=== PATIENT | female | born 1995 | race Caucasian/White ===

== ENCOUNTER 2017-09-18 11:31 | Emergency (ER) | payer MEDICAID, SELFPAY ==
[2017-09-18 11:33] VITALS: BP 104/65; PULSE 84; RESP 16; TEMP 36.9; O2SAT 98; BMI 22.8
--- NOTE | 2017-09-18 12:17 | US_ITS ---
STUDY: ABDOMINAL ULTRASOUND - RIGHT UPPER QUADRANT REASON FOR VISIT: Female, 21 years old. One-week history of right abdominal pain. The patient is 9 weeks . TECHNIQUE: Ultrasound evaluation of the right upper quadrant was performed with real-time and static workman-scale imaging. TECHNICAL QUALITY: Adequate. COMPARISON: None. FINDINGS: Liver: The liver measures 14.4 cm. There is normal echogenicity of the liver. The bile ducts are within normal limits. There is hepatic color flow. The direction of portal flow is hepatopetal. There is no demonstrated mass lesion. Gallbladder: Normal distended gallbladder. The gallbladder wall measures 2.8 mm. There is a negative sonographic Graham's sign. There is no pericholecystic fluid. There are no gallstones. A small amount of sludge is seen in the gallbladder lumen. Common Bile Duct (C.B.D.): The common bile duct measures 3.7 mm. Pancreas: Normal size of the head, body and tail of the pancreas. There is normal echogenicity of the pancreas. There is no demonstrated pancreatic mass or cyst. US/Gallbladder IMPRESSION: A small amount of sludge is seen within the gallbladder lumen. Electronically Signed: Wilberto Sylvester MD at 14:45 EDT Tel [phone], Service support ,
--- NOTE | 2017-09-18 12:17 | US_ITS ---
STUDY: RENAL ULTRASOUND - COMPLETE REASON FOR EXAM: Female, 21 years old. Right abdominal pain for one week. 9 week . TECHNIQUE: Ultrasound evaluation of the kidneys was performed with real-time and static asher-scale imaging. COMPARISON: None. FINDINGS: RIGHT KIDNEY: Normal location of the right kidney, which is normal in size. The right kidney measures 12.2 cm. There is a normal cortex of the right kidney. The renal cortex measures 1.6 cm. There is a 1.2 x 1.2 x 1.0 cm upper pole cyst. There is a 1 cm linear echogenic focus in the upper pole without shadowing. A second 3 mm echogenic focus is seen in the upper pole. Again no shadowing is seen. There is no right hydronephrosis. DISTAL RIGHT URETER: There is mild hydroureter of the distal right ureter. There is no demonstrated right ureterovesical junction calculus. There is a visualized right ureteral jet. LEFT KIDNEY: Normal location of the left kidney, which is normal in size. The left kidney measures 11.1 cm. There is a normal cortex of the left kidney. The renal cortex measures 1.6 cm. There is no left renal mass or cyst. The 4 mm echogenic focus in the lower pole without acoustic shadowing. There is no left hydronephrosis. DISTAL LEFT URETER: There is non-visualization of the distal left ureter. There is no demonstrated left ureterovesical junction calculus. There is a visualized left ureteral jet. BLADDER: The distended urinary bladder has a volume of 259 ml. There is a normal wall thickness of the distended urinary bladder. Is dependent debris within the bladder lumen. There are no demonstrated bladder calculi. US/Kidney and Bladder IMPRESSION: 1. Prominent distal right ureter with debris within the bladder lumen. No evidence of hydronephrosis. 2. Echogenic foci in both kidneys without acoustic shadowing. These may represent nonobstructing stones or reflectivity from sinus fat or vessels. 3. Right renal cyst. Electronically Signed: Iggy Mcrae DO at 15:14 EDT Tel [phone], Service support ,
[2017-09-18] MEDS: proMETHazine 25 MG/ML Syringe 12.5 MG IV (12:30)
[2017-09-18] MEDS: 0.9% Normal Saline 1,000 ML 999 ML IV (12:30)
[2017-09-18 12:37] LABS: Bacteria 0 SEEN /hpf (None Seen); Mucous, Urine 0 SEEN /hpf (<or=2+); Red Blood Cells-Urine 0 SEEN /hpf (0-5); White Blood Cells 0 SEEN /hpf (0-5)
[2017-09-18 12:41] LABS: Absolute Lymphocyte Count 1.88 X10^3/ul (0.83-4.51); Basophil# 0.02 X10^3/uL; Basophil% 0.2 % (0-1); Eosinophil# 0.37 X10^3/uL; Eosinophils% 4.2 % (0-5); Hematocrit 36.5 % (37-47); Hemoglobin 12.3 g/dl (12.0-15.0); Lymphocyte # 1.88 X10^3/ul (4.0); Lymphocyte % 21.4 % (19-41); Mean Corp Hgb Conc 33.7 g/gl (32-36); Mean Corpuscular Hgb 30.1 pg (27.0-32.0); Mean Corpuscular Volume 89.2 fL (81-99); Mean Platelet Vol. 8.8 fl (6.2-12.0); Monocyte# 0.47 X10^3/uL; Monocyte% 5.4 % (0-10); Neutrophil # 6.02 X10^3/uL (2.7-7.7); Neutrophil % 68.7 % (47-70); Platelet Count 289 K/mm3 (150-450); RBC Distribution Width CV 13.1 % (11.6-14.6); RBC Distribution Width SD 42.6 fl (35.1-43.9); Red Blood Count 4.09 M/mm3 (4.2-5.4); White Blood Count 8.8 K/mm3 (4.4-11.0)
[2017-09-18 12:46] LABS: POSITIVE COUNT NO; POSITIVE DIFFERENTIAL NO; POSITIVE MORPHOLOGY NO
[2017-09-18 12:48] LABS: Anion Gap 9 (5-15); BUN 8 mg/dL (7-18); Calcium,Total 8.9 mg/dL (8.5-10.1); Chloride 107 mmol/L (98-107); Creatinine, Serum 0.47 mg/dL (0.55-1.02); EST Glomerular Filtration Rate 176 mL/min (>60); Est Glom Filt Rate - Afr Amer 213 mL/min (>60); Estimated Creatinine Clearance 149.75 ml/min; Glucose 79 mg/dL (74-106); Lipase 141 U/L (73-393); Potassium 3.8 mmol/L (3.5-5.1); Sodium Level 139 mmol/L (136-145)
[2017-09-18 12:49] LABS: AST(SGOT) 17 U/L (15-37); Alanine Aminotransfer ALT/SGPT 24 U/L (13-56); Albumin, Serum 3.7 g/dL (3.2-5.0); Alkaline Phosphatase 51 U/L (45-117); Bilirubin, Direct 0.08 mg/dL (0.00-0.30); Color, Urine Yellow (Yellow); Globulin 3.6 g/dL (2.2-4.2); Glucose, Dipstick Normal (Normal); Ketone-Dipstick 50 mg/dl (Negative); Leukocyte Esterase-Dipstick 25 /ul (Negative); Nitrite-Dipstick Negative (Negative); Occult Blood-Urine 10 /ul (Negative); Protein, Total 7.3 g/dL (6.4-8.2); Protein-Dipstick Negative (Negative); Specific Gravity, Urine 1.015 (1.002-1.030); Urine Bilirubin Dipstick Negative (Negative); Urine Clarity Cloudy (Clear); Urine Urobilinogen Normal (Normal)
[2017-09-18 12:56] LABS: Amorphous Sediment 3+; Squamous Epithelial Cells - UA 10-25 SEEN /hpf (5-10)
--- NOTE | 2017-09-18 16:03 | ED.DCSUM_ITS ---
- ER Visit Summary Date of Service: 09/18/17 Chief Complaint: Abdominal pain History of Present Illness: The patient is a 21 F who presents with abdominal pain. She is 9 weeks . She denies any vaginal bleeding or vaginal discharge. She states she was recently diagnosed with UTI but was noncompliant with medications due to nausea. She reports some decreased p.o. intake over the past few days. She states her urine is cloudy. She has had increased vomiting over the past 2-3 days. She complains of sharp right upper quadrant abdominal pain and bilateral lower back pain. Physical Examination: Afebrile vitals are normal Moist mucous membranes Heart regular rate and rhythm Lungs are clear Abdomen soft nondistended she does have right upper quadrant tenderness but no Graham's sign no guarding no rebound Bilateral CVA tenderness Test Results: CBC CMP lipase all normal. Urinalysis shows 25 leukocyte esterase but no nitrates no WBCs no bacteria and is contaminated with 10-25 epithelial cells. Right upper quadrant ultrasound shows sludge but normal wall no pericholecystic fluid. Renal ultrasound shows some prominence of the distal right ureter and possible nonobstructing bilateral stones but no hydronephrosis. Transabdominal pelvic ultrasound performed by the emergency physician shows a live IUP with heart rate of 188. Emergency Department Course and Treatment: Patient was treated with IV fluids and Phenergan and feels much better on reevaluation. She has no evidence of acute cholecystitis or pyelonephritis. I believe she is safe to follow-up as an outpatient. She understands return for new or worsening symptoms. She does have antiemetics at home. She is comfortable with the plan was discharged. Treatment Plan: [] Disposition: Discharge Impression: Abdominal pain Vomiting First trimester This note was generated with RSP Toolingation software. It may contain incorrect words, spelling, and punctuation that were not noted in review of the chart prior to signing ED Disposition - Plan for ED Patient: Chief Complaint: Abd Pain Referrals: Javi Steven MD [Primary Care Provider] -
--- NOTE | 2017-09-18 16:03 | ED.DEP ---
ED Disposition - Plan for ED Patient: Chief Complaint: Abd Pain Instructions: ED Abdominal Pain Unkn Cause, ED Nausea Vomiting Referrals: Javi Steven MD [Primary Care Provider] - Barbara Figueroa [STAFF PHYSICIAN] -
[2017-09-18 16:11] VITALS: BP 100/78; PULSE 72; RESP 16; O2SAT 98
== END 2017-09-18 16:12 | disposition home or self-care (01) ==
PROVIDERS: Emergency Provider Emergency Medicine; Family Provider Family Medicine; PCP Family Medicine
DX: O99.89 Other specified diseases and conditions complicating pregnancy, childbirth and the puerperium (principal); R10.11 Right upper quadrant pain; M54.5 Low back pain; R11.2 Nausea with vomiting, unspecified; R30.0 Dysuria; O99.331 Smoking (tobacco) complicating pregnancy, first trimester; F17.200 Nicotine dependence, unspecified, uncomplicated; Z3A.09 9 weeks gestation of pregnancy; Z87.440 Personal history of urinary (tract) infections
CPT/HCPCS: 76705; 76770; 80048; 80076; 81001; 83690; 85025; 87086; 96361; 96374; 99283; J7030

== ENCOUNTER 2017-09-23 13:16 | Emergency (ER) | payer MEDICAID, SELFPAY ==
[2017-09-23 13:16] VITALS: BP 104/70; PULSE 81; RESP 18; TEMP 36.4; O2SAT 98; BMI 23.2
--- NOTE | 2017-09-23 13:58 | ED.VISSUMM ---
- ER Visit Summary Date of Service: 09/23/17 Chief Complaint: Vaginal bleeding and History of Present Illness: The patient is a [address] Machado. She reports that she has vaginal bleeding that began approximately 2 hours ago. It was acquisition advisor than her typical period and is now resolved. She reports that she has cramping lower abdominal pain is 5 out of 10 at worst and 4-10 currently. Is worsened by movement and relieved by remaining still. She is currently on Macrobid for UTI. She is a at 9/2 weeks . Physical Examination: Vitals: Stable. Afebrile. General: Well-nourished and well-developed. Head: Normocephalic atraumatic. Neck: Supple, no lymphadenopathy. No JVD. Nontender. Cardiovascular: Regular rate and rhythm. No murmurs. Respiratory: No respiratory distress. Clear to auscultation bilaterally. Abdominal: Soft, nontender, nondistended, normal bowel sounds. No guarding, rebound, or peritoneal signs. Back: Nontender. Extremities: Nontender, no edema. Skin: Normal color, no rash. Neurologic: Alert and oriented ?3. Cranial nerves II through XII are intact. Normal strength and sensation. Psych: Normal affect. Test Results: Bedside ultrasound shows good movement and heartbeat. Patient had had a ABO Rh obtained previously that is a positive. Emergency Department Course and Treatment: Patient is resting comfortably. Treatment Plan: She was discussed with Dr. Trejo. She will be discharged instructions to follow-up tomorrow as previously scheduled. She was instructed to have pelvic rest. Disposition: To home in improved and stable condition. Impression: 1. First trimester . 2. Vaginal bleeding. This note was generated with Music[employer] dictation software. It may contain incorrect words, spelling, and punctuation that were not noted in review of the chart prior to signing ED Disposition - Plan for ED Patient: Disposition: Home or Assisted Living Chief Complaint: Vag Bld, Preg Instructions: ED Miscarriage Poss Referrals: Lynn Kaplan MD [STAFF PHYSICIAN] - Keep Ened[facility] appointment
[2017-09-23 14:33] VITALS: PULSE 85; RESP 18; O2SAT 99
== END 2017-09-23 14:34 | disposition home or self-care (01) ==
LOC: ED 14:31
PROVIDERS: Emergency Provider Emergency Medicine; Family Provider Family Medicine; PCP Family Medicine
DX: O20.9 Hemorrhage in early pregnancy, unspecified (principal); O23.41 Unspecified infection of urinary tract in pregnancy, first trimester; O99.331 Smoking (tobacco) complicating pregnancy, first trimester; F17.200 Nicotine dependence, unspecified, uncomplicated; Z3A.09 9 weeks gestation of pregnancy; Z87.442 Personal history of urinary calculi
CPT/HCPCS: 99282

== ENCOUNTER 2017-12-09 11:48 | Emergency (ER) | payer MEDICAID, SELFPAY ==
[2017-12-09 11:49] VITALS: BP 104/59; PULSE 77; RESP 16; TEMP 36.7; O2SAT 100; BMI 23.6
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
--- NOTE | 2017-12-09 12:18 | ED.DEP ---
ED Disposition - Plan for ED Patient: Chief Complaint: Med Refill Instructions: Med Refill Referrals: Javi Steven MD [Primary Care Provider] - Additional Instructions: Emergency prescription is provided to you at [facility], please recognize that no additional emergency prescriptions will be provided from the emergency department this was done on an emergency basis only all other emergency prescription should be provided by your providers
== END 2017-12-09 12:52 | disposition home or self-care (01) ==
LOC: ED 12:22
PROVIDERS: Emergency Provider Emergency Medicine; Family Provider Family Medicine; PCP Family Medicine
DX: Z76.0 Encounter for issue of repeat prescription (principal)
CPT/HCPCS: 99282

== ENCOUNTER 2018-03-14 13:35 | Outpatient (CLI) | payer MEDICAID, SELFPAY ==
[2018-03-14 13:48] VITALS: BMI 25.7
[2018-03-14 14:02] LABS: Mucous, Urine 0 SEEN /hpf (<or=2+)
[2018-03-14 14:06] LABS: Glucose, Dipstick Normal (Normal); Ketone-Dipstick Negative (Negative); Leukocyte Esterase-Dipstick 100 /ul (Negative); Nitrite-Dipstick Negative (Negative); Occult Blood-Urine 150 /ul (Negative); Protein-Dipstick 15 mg/dl (Negative); Urine Bilirubin Dipstick Negative (Negative); Urine Urobilinogen Normal (Normal); Urine pH 6.5 (5.0 - 8.0)
[2018-03-14 14:11] LABS: Color, Urine Yellow (Yellow); Urine Clarity Clear (Clear)
[2018-03-14 14:13] LABS: Red Blood Cells-Urine 0-5 SEEN /hpf (0-5); White Blood Cells 0-5 SEEN /hpf (0-5)
[2018-03-14 14:14] LABS: Bacteria 3+ /hpf (None Seen); Squamous Epithelial Cells - UA 0-5 SEEN /hpf (5-10)
[2018-03-14 14:41] LABS: Amphetamine Urine VISTA NEGATIVE (<1000 ng/mL); Barbiturate Urine VISTA NEGATIVE (< 200 ng/mL); Benzodiazepine Urine VISTA NEGATIVE (< 200 ng/mL); Cocaine Urine VISTA NEGATIVE (< 300 ng/mL); Ecstacy Urine VISTA NEGATIVE (< 500 ng/mL); Methadone Urine VISTA NEGATIVE (< 300 ng/mL); PCP Urine VISTA NEGATIVE (< 25 ng/mL); THC Urine VISTA NEGATIVE (< 50 ng/mL); Vista UDS pH Range 6
--- NOTE | 2018-03-14 17:19 | OB.TRI.NOTE ---
- Problem List (1) related abdominal pain of lower quadrant, antepartum Status: Acute History of Present Illness Date of Service: 03/14/18 Was patient seen by the physician?: No Reason For Visit: ABD PAIN Date of Service: 03/14/18 Final CHIN: 04/20/18 Final CHIN Source: US <20 weeks Gestational age: 34 Weeks and 5 Days History of Present Illness: Patient reports that she is having some midline lower quadrant pain and some discomfort with urination. Patient thinks she may have a UTI. Allergies diphenhydramine HCl [From Benadryl] Allergy (Verified 03/14/18 13:50) Hives Penicillins Allergy (Verified 03/14/18 13:50) Hives Laboratory Studies: Laboratory Tests 03/14/18 03/14/18 Range/Units 13:50 13:50 Urine Color Yellow (Yellow) Urine Clarity Clear (Clear) Urine pH 6.5 (5.0 - 8.0) Ur Specific Loma 1.020 (1.002-1.030) Urine Protein 15 H (Negative) mg/dl Urine Glucose (UA) Normal (Normal) mg/dl Urine Ketones Negative (Negative) mg/dl Urine Occult Blood 150 H (Negative) /ul Urine Nitrite Negative (Negative) Urine Bilirubin Negative (Negative) mg/dL Urine Urobilinogen Normal (Normal) mg/dl Ur Leukocyte Esterase 100 H (Negative) /ul Urine RBC 0-5 SEEN (0-5) /hpf Urine WBC 0-5 SEEN (0-5) /hpf Ur Squamous Epith Cells 0-5 SEEN (5-10) /hpf Urine Bacteria 3+ (None Seen) /hpf Urine Mucus 0 SEEN (<or=2+) /hpf Urine Opiates Screen NEGATIVE (< 300 ng/mL) Urine Methadone Screen NEGATIVE (< 300 ng/mL) Ur Barbiturates Screen NEGATIVE (< 200 ng/mL) Ur Phencyclidine Scrn NEGATIVE (< 25 ng/mL) Ur Amphetamines Screen NEGATIVE (<1000 ng/mL) U Methamphetamin-MDMA NEGATIVE (< 500 ng/mL) U Benzodiazepines Scrn NEGATIVE (< 200 ng/mL) Urine Cocaine Screen NEGATIVE (< 300 ng/mL) U Cannabinoids Screen NEGATIVE (< 50 ng/mL) Ur Drug Screen Comment Review of Systems Constitutional: Denies: Chills, Fever, Weight Change HEENT: Denies: Head Aches, Sinus Congestion, Sinus Drainage Cardiovascular: Denies: Chest Pain, Palpitations Respiratory: Denies: Cough, Shortness of breath at rest, Sputum production Gastrointestinal: Reports: Abdominal Pain Genitourinary: Reports: Dysuria Musculoskeletal: Denies: Joint Pain, Joint Tenderness Skin: Denies: Rash, Wounds Neurological: Denies: Numbness, Tingling, Focal weakness Psychiatric: Denies: Anxiety, Depression, Homicidal Ideations, Suicidal Ideations Hematologic/ Lymphatic: Denies: Easy Bruising, Easy Bleeding Unable to obtain accurate/complete ROS d/t: See nursing note for additional information re: ROS Physical Exam Vitals: See nursing assessment for vital signs - VSS, afebrile See nursing assessment for PE NST - FHR Rate Baby A Baseline: 135 Variability:: Moderate Accelerations:: 15 x 15 Decelerations:: None NST Reactive:: Yes, Appropriate for gestational age FHR Category:: Category I Uterine Activity:: No contractions noted on tocometer Impression/Plan 22 y/o @ 34.5wks, Lower Abdominal Pain and Dysuria - findings c/w UTI P: 1) CCMS sent 2) Rx for Macrobid 100mg PO BID x 7 days e-prescribed to patient's listed pharmacy through [facility] 3) Discharge to home with PTL precautions 4) Increase PO hydration 5) RTC to [facility] as scheduled for next visit Lesly DELEON
== END 2018-03-14 14:40 | disposition home or self-care (01) ==
LOC: WPOUT 13:41 → WP 13:42
PROVIDERS: Family Provider Family Medicine; PCP Family Medicine; Referring Provider Obstetrics & Gynecology; Visit Provider Obstetrics & Gynecology
DX: O26.893 Other specified pregnancy related conditions, third trimester (principal); R10.30 Lower abdominal pain, unspecified; R30.0 Dysuria; Z3A.34 34 weeks gestation of pregnancy
CPT/HCPCS: 59025; 59050; 80307; 81001; 87086; 87088; 99218; G0378

== ENCOUNTER 2018-04-02 03:50 | Outpatient (CLI) | payer MEDICAID, SELFPAY ==
[2018-04-02] MEDS: Lactated Ringers 1,000 ML 125 ML IV ×2 (04:30→06:50)
[2018-04-02 05:14] VITALS: BMI 25.9
[2018-04-02 05:17] LABS: ROM Internal Control Test YES-OK TO RESULT pt. (Internal QC); ROM Patient Test Negative (Negative)
[2018-04-02 05:50] LABS: Mucous, Urine 0 SEEN /hpf (<or=2+); Red Blood Cells-Urine 0 SEEN /hpf (0-5)
[2018-04-02 06:07] LABS: Amphetamine Urine VISTA NEGATIVE (<1000 ng/mL); Barbiturate Urine VISTA NEGATIVE (< 200 ng/mL); Benzodiazepine Urine VISTA NEGATIVE (< 200 ng/mL); Cocaine Urine VISTA NEGATIVE (< 300 ng/mL); Ecstacy Urine VISTA NEGATIVE (< 500 ng/mL); Methadone Urine VISTA NEGATIVE (< 300 ng/mL); PCP Urine VISTA NEGATIVE (< 25 ng/mL); THC Urine VISTA NEGATIVE (< 50 ng/mL); Vista UDS pH Range 6
--- NOTE | 2018-04-02 06:11 | OB.TRI.NOTE ---
- Problem List (1) Breech presentation of fetus Status: Resolved Qualifiers: Fetus number: single or unspecified fetus Qualified Code(s): O32.1XX0 - Maternal care for breech presentation, not applicable or unspecified History of Present Illness Date of Service: 04/02/18 Was patient seen by the physician?: Yes Reason For Visit: r/o labor Date of Service: 04/02/18 Final CHIN: 04/21/18 Final CHIN Source: US <20 weeks Gestational age: 37 Weeks and 2 Days Allergies diphenhydramine HCl [From Benadryl] Allergy (Verified 03/14/18 13:50) Hives Penicillins Allergy (Verified 03/14/18 13:50) Hives Laboratory Studies: Laboratory Tests 04/02/18 04/02/18 Range/Units 04:40 04:30 Vag Amniotic Fld Detect Negative (Negative) Urine Opiates Screen NEGATIVE (< 300 ng/mL) Urine Methadone Screen NEGATIVE (< 300 ng/mL) Ur Barbiturates Screen NEGATIVE (< 200 ng/mL) Ur Phencyclidine Scrn NEGATIVE (< 25 ng/mL) Ur Amphetamines Screen NEGATIVE (<1000 ng/mL) U Methamphetamin-MDMA NEGATIVE (< 500 ng/mL) U Benzodiazepines Scrn NEGATIVE (< 200 ng/mL) Urine Cocaine Screen NEGATIVE (< 300 ng/mL) U Cannabinoids Screen NEGATIVE (< 50 ng/mL) Ur Drug Screen Comment Review of Systems Constitutional: Denies: Chills, Fever, Weight Change HEENT: Denies: Head Aches, Sinus Congestion, Sinus Drainage Cardiovascular: Denies: Chest Pain, Palpitations Respiratory: Denies: Cough, Shortness of breath at rest, Sputum production Gastrointestinal: Reports: Abdominal Pain - Reports lower back pain that wraps around to front, specifically on Rt. Side.. Denies: Nausea, Vomiting Genitourinary: Denies: Dysuria Gynecological: Reports: Vaginal discharge - Reports scant clear/white discharge on and off since Friday 03/30. Denies: Vaginal bleeding Musculoskeletal: Denies: Joint Pain, Joint Tenderness Skin: Denies: Rash, Wounds Neurological: Denies: Numbness, Tingling, Focal weakness Psychiatric: Denies: Anxiety, Depression, Homicidal Ideations, Suicidal Ideations Hematologic/ Lymphatic: Denies: Easy Bruising, Easy Bleeding Physical Exam Vitals: See nursing note for vitals General: Alert, Oriented x3, No apparent distress HEENT: Atraumatic, Normocephalic, - - lips dry and cracked. Negative for: Thyromegaly, Lymphadenopathy Cardiovascular: Regular rate, Regular Rhythm Lungs: Normal air movement Abdomen: Soft, Non Tender, Gravid Extremities:: No edema Neurological: Deep Tendon Reflexes 2+/4 and Symmetrical, Neuro grossly intact CHART SNATCHER: Normal external genitalia. Negative for: Vulvar lesions Estimated gestational size: Appropriate for gestational size Presentation: Cephalic - Confirmed by bedside u/s Cervix Dilation (cm): 1 - Per nursing staff Station: -2 Effacement (%): 50 NST - FHR Rate Baby A Baseline: 125 Variability:: Moderate Accelerations:: 15 x 15 Decelerations:: None NST Reactive:: Yes, Appropriate for gestational age FHR Category:: Category I Uterine Activity:: Irregular q 10-20 minutes, mildly strog to palpation Impression/Plan 22 y/o @ 37+2 weeks, Previous known Breech presentation with spontaneous conversion to Cephalic presentation, False Labor likely secondary to dehydration, Category I FHT P: 1) Urine UA sent, Rpt tox screen also sent d/t patient hx of recent meth use in last month 2) Discharge to home with labor and C teaching precautions 3) Scheduled ECV this morning cancelled - Drs. Trejo and Kyra informed of spontaneous version 4) Patient to follow-up as scheduled for visit in [facility] office Lesly DELEON
[2018-04-02 06:25] LABS: Color, Urine Yellow (Yellow); Glucose, Dipstick NEGATIVE (Normal); Ketone-Dipstick Negative (Negative); Protein-Dipstick Negative (Negative); Urine Bilirubin Dipstick Negative (Negative); Urine Clarity Clear (Clear); Urine Urobilinogen Normal (Normal); Urine pH 6.5 (5.0 - 8.0)
[2018-04-02 06:26] LABS: Leukocyte Esterase-Dipstick 100 /ul (Negative); Nitrite-Dipstick Negative (Negative); Occult Blood-Urine Negative /ul (Negative)
[2018-04-02 06:27] LABS: White Blood Cells 0-5 SEEN /hpf (0-5)
[2018-04-02 06:28] LABS: Bacteria 1+ /hpf (None Seen); Squamous Epithelial Cells - UA 0-5 SEEN /hpf (5-10)
--- OUTSIDE RECORDS SUMMARY | 2018-05-14 18:07 | XMS RPT_ITS ---
:1995 Author Organization [place] Support Name Relationship Address Phone SHITAL ROSENTHALEN Unavailable [address] + [place] [address] LUIGI LORENZO Unavailable [address] [address] + [place] [address] UE Unavailable Unavailable Unavailable ARIADNA, KRZYSZTOF Unavailable [address] + [place] [address] JESSICA LUIGI Unavailable [address] + [place] [address] UE Unavailable Unavailable Unavailable ARIADNA, KRZYSZTOF Unavailable [address] + [place] [address] JESSICA LUIGI Unavailable [address] [place] + [place] [address] UE Unavailable Unavailable Unavailable ARIADNA, KRZYSZTOF Unavailable [address] + [place] [address] JESSICA LUIGI Unavailable [address] + [place] [address] UE Unavailable Unavailable Unavailable ARIADNA, KRZYSZTOF Unavailable [address] + [place] [address] JESSICA LUIGI Unavailable [address] [place] [address] + [place] [address] UE Unavailable Unavailable Unavailable ARIADNA, KRZYSZTOF Unavailable [address] + [place] [address] JESSICA, LUIGI Unavailable [address] + [place] [address] UE Unavailable Unavailable Unavailable ARIADNA, KRZYSZTOF Unavailable [address] + [place] [address] LORENZO, LUIGI Unavailable [address] [place] [address] + [place] [address] UE Unavailable Unavailable Unavailable ARIADNA, KRZYSZTOF Unavailable [address] + [place] [address] LORENZO, LUIGI Unavailable [address] [place] [address] + [place] [address] UE Unavailable Unavailable Unavailable ARIADNA, KRZYSZTOF Unavailable [address] + [place] [address] LORENZO, LUIGI Unavailable [address] [place] [address] + [place] [address] UE Unavailable Unavailable Unavailable Care Team Providers Name Role Phone [facility] Unavailable Javi Steele Attending Unavailable [facility] Unavailable Kwan Porter Attending Unavailable [facility] Unavailable Hilario Clemente Attending Unavailable [facility] Care Unavailable Gwen Mcdonnell Attending Unavailable Purvi Trejo Attending Unavailable Purvi Trejo Referring Unavailable [facility] Unavailable Purvi Trejo Admitting Unavailable Purvi Trejo Attending Unavailable [facility] Unavailable Lynn Kaplan Attending Unavailable [facility] Unavailable Lynn Kaplan Referring Unavailable Gary, Fantasma Attending [facility] Referring Unavailable [facility] Unavailable Wiswell, Fantasma Admitting Unavailable Wiswell, Fantasma Attending Unavailable Wiswell, Fantasma Referring Unavailable [facility] Care Unavailable DAILY ACUNA (STOCK CLIPPER) Attending Unavailable AXEL HUANG Attending Unavailable LYNN SOARES Attending Unavailable AXEL HUANG Referring Unavailable AXEL HUANG Attending Unavailable ROSINA VALLE (CNM) Attending Unavailable ROSINA VALLE (CNM) Attending Unavailable DAILY ACUNA (STOCK CLIPPER) Attending Unavailable AXEL HUANG Attending Unavailable DAILY ACUNA (ST[employer] CLIP[employer]) Referring Unavailable MELANIE PHILLIP Attending Unavailable DAILY ACUNA ([facility]) Referring Unavailable WISWELL, FANTASMA Attending Unavailable SAL, AXEL Referring Unavailable WISWELL, FANTASMA Attending Unavailable WISWELL, FANTASMA Referring Unavailable PHILLIP, MELANIE Arroyo Attending Unavailable WISWELL, FANTASMA Referring Unavailable NEYHART KWON, LYNN Attending Unavailable WISWELL, FANTASMA Attending Unavailable NEYHART KWON, LYNN Referring Unavailable WISWELL, FANTASMA Referring Unavailable WISWELL, FANTASMA Attending Unavailable WISWELL, FANTASMA Referring Unavailable MASCI, JANNA A Referring Unavailable MASCI, JANNA A Referring Unavailable [facility] (CN) Attending Unavailable MASCI, JANNA A Referring Unavailable MASCI, JANNA A Referring Unavailable PHILLIP, MELANIE A Attending Unavailable [facility] (CN) Referring Unavailable MASCI, JANNA A Referring Unavailable LEONARDROSINA (CN) Attending Unavailable WISWELL, FANTASMA Attending Unavailable SAL, AXEL Attending Unavailable WISWELL, FANTASMA Attending Unavailable WISWELL, FANTASMA Attending Unavailable Nany, Dr. Yecenia Amaya Attending Unavailable Nany, Dr. Yecenia Amaya Referring Unavailable Nany, Dr. 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, [place] unspecified / Repository K90.9(ICD-10) 03/08/2018 Active Anemia complicating Active [facility] , [place] unspecified Repository trimester / O99.019(ICD-10) 03/25/2018 Active Other iron Active [facility] deficiency anemias [place] / D50.8(ICD-10) Repository 03/05/2018 Active Anemia complicating NA Active [facility] , third [place] trimester / Repository O99.013(ICD-10) 01/22/2018 Active Problem related to NA Active [facility] unspecified [place] psychosocial Repository circumstances / Z65.9(ICD-10) 01/21/2018 Active Personal history of NA Active [facility] other complications [place] of , Repository childbirth and the puerperium / Z87.59(ICD-10) 01/21/2018 Active Personal history of NA Active [facility] other mental and [place] behavioral Repository disorders / Z86.59(ICD-10) 01/21/2018 Active Drug use NA Active [facility] complicating [place] , Repository unspecified trimester / O99.320(ICD-10) 01/21/2018 Active Opioid dependence, NA Active [facility] uncomplicated / [place] F11.20(ICD-10) Repository 01/21/2018 Active custodial (current) Active [facility] use of opiate [place] analgesic / Repository Z79.891(ICD-10) 01/21/2018 Active Vomiting of NA Active [facility] , [place] unspecified / Repository O21.9(ICD-10) 01/21/2018 Active Smoking (tobacco) NA Active [facility] complicating [place] , Repository unspecified trimester / O99.330(ICD-10) 01/21/2018 Active Unspecified NA Active [facility] infection of [place] urinary tract in Repository , unspecified trimester / O23.40(ICD-10) 09/21/2017 Active Elevated urine Active [facility] levels of drugs, [place] medicaments and Repository biological substances / R82.5(ICD-10) 09/19/2017 Active Personal history of Active [facility] other specified [place] conditions / Repository Z87.898(ICD-10) 09/13/2017 Active Herpesviral NA Active [facility] infection of [place] urogenital system, Repository unspecified / A60.00(ICD-10) 08/30/2017 Active Encounter for other Active [facility] specified special [place] examinations / Repository Z01.89(ICD-10) 01/21/2018 Active Supervision of high NA Active [facility] risk , [place] unspecified, Repository unspecified trimester / O09.90(ICD-10) 01/21/2018 Active 27 weeks gestation NA Active [facility] of / [place] Z3A.27(ICD-10) Repository 08/30/2017 Active Unknown / AXEL HUANG Active [facility] UNK(Unknown) [place] Repository PROCEDURES PROCEDURES No Procedure Records FoundRESULTS RESULTS DISCHARGE INSTRUCTION Observed: 04/19/2018 Status: F Source: [place] 8:09 AM [facility] REPOSITORY [facility] Medical Records Department [address] [place] [address] Instructions for Home/Discharge Instructions 04/19/18 0806 MR#: [id number] Acct: [id number] Name: REJI LORENZO Rep #: [id number] : 1995 22 From: Fantasma Vega DO PCP: Javi Garcia MD Status: ADM IN Discharge Diet: No Restrictions Discharge Activity: May not drive while taking narcotic pain medications., May Shower May resume sexual activity in: 6 weeks Weight Bearing Status: Weight bearing as tolerated Lifting Restrictions: No lifting greater than 25 lbs Call your doctor if your incision/area has: Increased Pain/ Swelling, Increased Redness, Foul Smelling Discharge, Swelling at the incision site Call your doctor if you observe: Fever of 101 or Higher, Inability to urinate, Inability to have a bowel movement, Using more than one pad per hour, Shortness of breath, Chest pain, Increased palpitations (irregular heartbeat), Calf discomfort, Uncontrolled pain Cleanse incision/area with: Soap AND Water Instructions: After a Additional Instructions: If you experience any of the following, contact your healthcare provider. * Bleeding that soaks a pad every hour for 2 hours * Fever 100.4 or higher * Unrelieved incision or abdominal pain * Swelling, redness, discharge or bleeding from your incision or episiotomy site * Your incision begins to separate * Problems urinating (including inability to urinate or burning while urinating). * Visual changes * Severe headache * Flu-like symptoms * Pain or redness in one of both of your breasts * Pain, warmth, tenderness or swelling in your legs, especially the calf area * Frequent nausea and vomiting * Symptoms of depression or anxiety If you experience any of the following, call 911 or go to the nearest Emergency Room. * Chest pain * Problems breathing * Seizure activity * Partial or complete paralysis of a body part, slurred speech, weakness or drooping of the face, or a sudden inability to walk or hold your balance Allergies/Adverse Reactions: Allergies diphenhydramine HCl [From Benadryl] Allergy (Verified 04/09/18 12:35) Hives Penicillins Allergy (Verified 04/09/18 12:35) Hives Medications to take at Discharge Buprenorphine HCl 12 mg SL BID 09/23/17 Docusate Sodium [Colace] 100 mg PO BID 03/14/18 Famotidine [Pepcid] 20 mg PO BID 03/14/18 Acyclovir 400 mg PO TID 04/02/18 Ferrous Sulfate 325 mg PO DAILY@0800 #30 tablet 12/12/18 Ibuprofen [Motrin] 800 mg PO TID #60 tablet 04/17/18 The following prescriptions were given: Ferrous Sulfate 325 mg PO DAILY@0800 #30 tablet Ibuprofen [Motrin] 800 mg PO TID #60 tablet Follow-Up: Call to make an appointment with your doctor for an incision check in 1-2 weeks. You will also need a 6 week post- follow up appointment. Test results from this visit will be discussed in further detail at your follow-up appointment, if applicable. When: In 1-2 weeks and in 4-6 weeks Primary Care Physician: Javi Garcia MD [Primary Care Provider] - 04/19/18808 <Electronically signed by Fantasma Vega DO> Date Fantasma Vega DO CC: Javi Garcia MD CBC-COMPLETE BLOOD CNT Collected: 04/17/2018 Status: F Source: [place] NO DIFF 6:30 AM [facility] REPOSITORY Order Comment: Comments: Day #1 Reason for Laboratory Test TYPE CODE TESTS RESULT OUT OF RANGE REFERENCE UNITS LAB L100.1000 4.4-11.0 K/mm3 Normal WBC 10.6 LAB L100.1200 4.2-5.4 M/mm3 Low RBC 2.88 LAB L100.1300 12.0-15.0 g/dl Low HGB 8.7 LAB L100.1400 37-47 % Low HCT 26.9 LAB L100.1500 81-99 fL Normal MCV 93.4 LAB L100.1600 27.0-32.0 pg Normal MCH 30.2 LAB L100.1700 32-36 g/gl Normal MCHC 32.3 LAB L100.1810 11.6-14.6 % High RDW CV 15.2 LAB L100.1820 35.1-43.9 fl High RDW SD 52.2 LAB L100.1900 150-450 K/mm3 Normal PLT 253 LAB L100.2000 6.2-12.0 fl Normal MPV 8.3 Performed By: #### L100.0500 #### [facility] [address] [place], [address] PROGRESS Observed: 04/16/2018 Status: COMPLETED Source: [place] 3:21 PM [facility] [place] REPOSITORY HNO ID: [id number] Author: Keisha Vallecillo LPN Service: (none) Author Type: (none) Type: Progress Notes Filed: 04/16/2018 3:22 PM Note Text: Pt delivered via C/S at [facility] on 04/16/[address] Vega and SHANNAN. See OB Outcome note. Keisha Vallecillo LPN OPERATIVE REPORT Observed: 04/16/2018 Status: F Source: [place] 1:21 PM [facility] REPOSITORY [facility] Medical Records Department [address] [place] [address] Operative Report 04/16/18 1315 MR#: [id number] Acct: [id number] Name: REJI LORENZO Rep #: [id number] : 1995 22 From: Fantasma Vega DO PCP: Javi Garcia MD Status: ADM IN Location: HP308-6 - Problem List (1) Breech presentation of fetus Status: Resolved Qualifiers: Fetus number: single or unspecified fetus Delivery Classification: Scheduled Final CHIN: 04/20/18 Gestational age: 39 Weeks and 3 Days Indications for : Breech Description of Procedure: Findings: Female infant in breech presentation. Normal uterus, tubes, and ovaries were noted. Clear fluid. Intact placenta with three-vessel cord. Indications: It is a 22-year-old 011 at 39 weeks gestation who presents for a scheduled section for breech presentation. Her prior delivery was a vaginal delivery. This fetus has had unstable lie in this . A version was discussed and the patient declined a version. Risks, benefits, alternatives of a primary were discussed and patient elected for a primary for breech presentation. Procedure: Spinal anesthesia was administered without difficulty and found to be adequate. The patient was prepped and draped in the usual sterile fashion in the dorsal supine position with a leftward tilt. A Pfannenstiel skin incision was made with a scalpel and carried through to the underlying layer of fascia using the Bovie. The fascia was incised in the midline and extended laterally using Juarez scissors. Lucero clamps were used to elevate the superior aspect of the fascial incision, and the underlying rectus muscles were dissected off bluntly and using Juarez scissors. Attention was then turned to the inferior aspect of the fascial incision which was grasped with Lucero clamps, elevated, and the underlying rectus muscles were dissected off bluntly and using the Juarez scissors. The rectus muscles were dissected in the midline. The peritoneum was identified and entered using Metzenbaum scissors. The peritoneal incision was extended superiorly and inferiorly with good visualization of the bladder. The bladder blade was inserted. The lower uterine segment was incised in a low transverse fashion and extended using with manual traction. Clear fluid was noted. The infant was subsequently delivered in breech presentation without difficulty. The cord was clamped and cut after 60 second delay. The was handed off to the waiting nursery nurse. The placenta was delivered with manual extraction and noted to be intact with a three-vessel cord. The uterus was explored x1. The uterus was exteriorized and cleared of all clot and debris. The incision was repaired in one layer using Vicryl. Hemostasis was visualized. The fallopian tubes and ovaries were noted to be normal. The uterus was then placed back into the abdomen. Hemostasis was again noted. The peritoneum was reapproximated in the midline using Vicryl. The fascia was closed with 0 Vicryl suture. The subcutaneous layer was closed with Vicryl. The skin was closed in a subcuticular fashion. Sponge, lap, instrument, and needle counts were correct. The patient was stable at completion of the procedure was transferred to the recovery room in stable condition. Amniotic Membrane Rupture Type: Artificial Amniotic Fluid Description: Clear Drain: Colbert to straight drain Cord Entanglement: None Cord Vessel Description: 3 Vessels Esitmated Blood Loss (ml): 800 Infant Gender: Female Delayed cord clamping: Yes Pre-op Antibiotic Given: Ancef 2 grams IV x1 Complications: None - Admit VTE Documentation VTE Mechan Device Prophylaxis: SCD's 04/16/18 1321 <Electronically signed by Fantasma Vega DO> Date Fantasma Vega DO CC: Javi Garica MD; Fantasma Vega DO Signed HISTORY AND PHYSICAL Observed: 04/16/2018 Status: F Source: [place] EXAM 1:15 PM [facility] REPOSITORY [facility] Medical Records Department [address] [place] [address] History and Physical 04/16/18 1205 MR#: [id number] Acct: [id number] Name: REJI LORENZO Rep #: [id number] : 1995 22 From: Fantasma Vega DO PCP: Javi Garcia MD Status: ADM IN Y Location: HB100-7 - Problem List (1) Breech presentation of fetus Status: Resolved Qualifiers: Fetus number: single or unspecified fetus History Date of Admission: 04/16/18 Final CHIN: 04/20/18 Final CHIN Source: US <20 weeks Gestational age: 39 Weeks and 3 Days History of this : This is a 22 year-old, G [], P [], at 39 weeks gestational age. Medical History: Medical History (Last Updated 04/09/18 @ 12:35 by Fantasma Vega DO) Anemia D64.9 Depression affecting O99.340, F32.9 Herpes B00.9 History of drug abuse Z87.898 Positive urine drug screen R82.5 complicated by subutex maintenance, antepartum O99.320, F11.20 Tobacco abuse Z72.0 Allergies diphenhydramine HCl [From Benadryl] Allergy (Verified 04/09/18 12:35) Hives Penicillins Allergy (Verified 04/09/18 12:35) Hives Home Medications: Home Medications Buprenorphine HCl 12 mg SL BID 09/23/17 Docusate Sodium [Colace] 100 mg PO BID 03/14/18 Famotidine [Pepcid] 20 mg PO BID 03/14/18 Acyclovir 400 mg PO TID 04/02/18 Smoking Status: Current every day smoker Substance Use Type: Amphetamines, Cocaine Number of Fetus(es): 1 Heart Tracing: Category 1 History Past Pregnancies: Past Pregnancies Delivery Name GA/Weeks Outcome Route WeiInfant GeLabor LenAnesthesiDelivery Provider FOB Date ght [facility] Location Labs: GBS neg, Syphilis NR, RI, Hep B neg, HIV NR, Rh pos, 1 hr GTT 108, GC/CT neg, Hep C was not checked with NOB labs so ordered on admission and pend Expected Infant Delivery Method: Primary Section Review of Systems Gynecological: Reports: - - No ctx, vb, lof. Good FM Physical Exam General: Alert, No apparent distress HEENT: Atraumatic Lungs: - - No increased resp effort Abdomen: Soft, Non Tender, Gravid Extremities:: No edema Neurological: Neuro grossly intact Estimated gestational size: Appropriate for gestational size Presentation: Breech Assessment/Plan All Active Problems (Last Updated 04/09/18 @ 12:35 by Fantasma Vega DO) related abdominal pain of lower quadrant, antepartum (Acute) Breech presentation of fetus (Resolved) Vaginal discharge during (Acute) This is a 22 year-old, at 39 wks gestation who presents for scheduled PLTCS for breech presentation. - TAUS confirmed breech on admission - Patient declines version - HepC screen on admission - UDS on admission - Discussed pain control plan with Dr. Robles. Subutex increased to 4mg q 6 hrs JEB. Okay for Dilaudid and Oxycodone prn for pain control while in the hospital. Will not sent patient home with narcotic rx 04/16/18 1315 <Electronically signed by Fantasma Vega DO> Date Fantasma Vega DO Cosigner Signature: Date (if applicable) CC: Javi Garcia MD; Fantasma Vega DO Signed URINE DRUG SCREEN Collected: 04/16/2018 Status: F Source: [place] ([place]) 10:30 AM [facility] REPOSITORY TYPE CODE TESTS RESULT OUT OF RANGE REFERENCE UNITS LAB L505.0075 TO BE Normal CONFIRMED Result Comment: CONFIRMATORY TESTING FOR ALL POSITIVE URINE DRUG SCREEN RESULTS WILL ONLY BE SENT OUT UPON PHYSICIAN ORDER. VISTA Urine Drug Screen methods provide only preliminary analytical test results. A more specific alternate chemical method must be used in order to obtain a confirmed analytical result. Gas chromatography/mass spectrometery (GC/MS) is the preferred confirmatory method. Clinical consideration and professional judgement should be applied to any drug of abuse test result, particularly when preliminary positive results are used. URINE TCA TESTING MUST BE ORDERED SEPARATELY. USE TEST MNEMONIC: [facility] LAB L505.5005 VISTA UDS PH 6 Normal LAB L505.5015 <1000 ng/mL AMPHETAMINES Normal NEGATIVE LAB L505.5025 < 200 ng/mL BARBITIURATES Normal NEGATIVE LAB L505.5035 < 200 ng/mL BENZODIAZIPINE Normal NEGATIVE LAB L505.5045 < 300 ng/mL COCAINE Normal NEGATIVE LAB L505.5055 < 500 ng/mL ECSTACY Normal NEGATIVE LAB L505.5065 < 300 ng/mL METHADONE Normal NEGATIVE LAB L505.5075 < 300 ng/mL OPIATES Normal NEGATIVE LAB L505.5085 < 25 ng/mL PCP Normal NEGATIVE LAB L505.5095 < 50 ng/mL THC Normal NEGATIVE Performed By: #### L505.5000 #### [facility] [address] [place], [address] CBC W/DIFF, AUTOMATED Collected: 04/16/2018 Status: F Source: [place] 10:30 AM [facility] REPOSITORY TYPE CODE TESTS RESULT OUT OF RANGE REFERENCE UNITS LAB L100.1000 4.4-11.0 K/mm3 High WBC 11.4 LAB L100.1200 4.2-5.4 M/mm3 Low RBC 3.82 LAB L100.1300 12.0-15.0 g/dl Low HGB 11.7 LAB L100.1400 37-47 % Low HCT 35.7 LAB L100.1500 81-99 fL Normal MCV 93.5 LAB L100.1600 27.0-32.0 pg Normal MCH 30.6 LAB L100.1700 32-36 g/gl Normal MCHC 32.8 LAB L100.1810 11.6-14.6 % High RDW CV 15.2 LAB L100.1820 35.1-43.9 fl High RDW SD 51.4 LAB L100.1900 150-450 K/mm3 Normal PLT 351 LAB L100.2000 6.2-12.0 fl Normal MPV 8.7 LAB L100.2100 47-70 % High NEUT% 73.1 LAB L100.2200 19-41 % Low LY% 18.2 LAB L100.2300 0-10 % Normal MONO% 6.6 LAB L100.2400 0-5 % Normal EO% 1.4 LAB L100.2500 0-1 % Normal BASO% 0.3 LAB L100.2550 0.0-0.9 % Normal IM GRAN % 0.400 Result Comment: IG% - Immature Granulocytes (promyelocytes, myelocytes and metamyelocytes) > 1% indicates that a LEFT SHIFT is Present. LAB L100.2620 2.0-7.7 X10 3/uL High Absolute Neut 8.4 LAB L100.2720 0.83-4.51 X10 3/ul Normal Absolute Lymph 2.08 Performed By: #### L100.0100 #### [facility] [address] [facility]. [place], [place], [id number] TYPE AND SCREEN Collected: 04/16/2018 Status: F Source: [place] 10:30 AM [facility] REPOSITORY Order Comment: Reason for Type AND Screen/Red Cells: SURGERY Type of Surgery: TYPE CODE TESTS RESULT OUT OF RANGE REFERENCE UNITS LAB B10.0800 A Normal BLOOD TYPE GEL POSITIVE LAB B100.4000 Normal Antibody NEGATIVE Screen Performed By: #### B101.7450 #### [facility] [address] [place], [place], [address] HEPATITIS C ANTIBODIES Collected: 04/16/2018 Status: F Source: [place] 10:30 AM [facility] REPOSITORY TYPE CODE TESTS RESULT OUT OF RANGE REFERENCE UNITS LAB L3100.0650 0.0-0.9 s/co ratio Normal HEP C AB <0.1 Result Comment: Negative: < 0.8 Indeterminate: 0.8 - 0.9 Positive: > 0.9 The CDC recommends that a positive HCV antibody result be followed up with a HCV Nucleic Acid Amplification test (795199). Performed at: [address] [id number] Warehouse Operations Manager: Lizandro Mcfadden PhD, Phone: [phone] Performed By: #### L3100.0625 #### [facility] (refer to report for specific site) refer to report for address and phone number HOSP Observed: 04/16/2018 Status: COMPLETED Source: [place] 12:00 AM [facility] REPOSITORY Patient Update (WOOB) REJI LORENZO ([id number]) 1995 F NFR Date Time Provider Department 04/16/18 FANTASMA VEGA During your visit today, we recorded the following information about you: Keisha Vallecillo LPN 04/16/2018 3:22 PM Signed Pt delivered via C/S at [facility] on 04/16/[address] Vega and SHANNAN. See OB Outcome note. Keisha Vallecillo LPN Allergies As of Date: 04/16/2018 Noted Allergy Reaction BENADRYL (DIPHENHYDRAMINE HCL) 05/28/2014 14 - Other: See Comments Comments: Hyper/anxiety PENICILLINS 06/19/2005 2 - Rash Date Reviewed: 04/11/2018 Reviewed by: Fantasma Vega - Fully Assessed Prescriptions as of 04/16/2018 Sig: ACETAMINOPHEN 325 MG TABLET Take 2 tablets by mouth every* ACYCLOVIR 400 MG TABLET Take 1 tablet by mouth three * SUBUTEX SUBLINGUAL Dissolve 12 mg under the tong* CALCIUM CARBONATE 300 MG (750* Take 2 tablets by mouth three* DOCUSATE SODIUM 100 MG CAPSULE Take 1 capsule by mouth twice* FAMOTIDINE 20 MG TABLET Take 1 tablet by mouth twice * FERROUS SULFATE 325 MG (65 MG* Take 1 tablet by mouth daily * Patient not taking: Reported on 03/18/2018 LHW44-NNSG FUM 28 MG* Take 1 tablet by mouth once d* PROMETHAZINE 25 MG TABLET Take 1 tablet by mouth every * Patient not taking: Reported on 03/18/2018 Problem List As Of Date 04/16/2018 Noted Resolved Narcotic abuse in remission [F11.11] INVALID FOR*09/13/2017 More... Depression [F32.9] INVALID FOR* GERD (gastroesophageal reflux disease) [K21.9] INVALID FOR*09/13/2017 Tobacco use disorder [F17.200] INVALID FOR*09/13/2017 UTI in , antepartum [O23.40] INVALID FOR*02/25/2015 Supervision of normal first [Z34.00] INVALID FOR*09/10/2014 FHx: cystic fibrosis [Z83.49] INVALID FOR* More... Supervision of normal [Z34.90] INVALID FOR*07/15/2014 Supervision of normal first teen [Z34*INVALID FOR*02/25/2015 More... Herpes simplex type 2 (HSV-2) infection affecti*INVALID FOR*02/25/2015 More... Rubella non-immune status, antepartum [O99.89, *INVALID FOR*02/25/2015 Anemia complicating [O99.019] INVALID FOR*05/29/2016 Uterine size-date discrepancy [O26.849] INVALID FOR*02/25/2015 Anxiety [F41.9] INVALID FOR* with uncertain dates, antepartum [Z34*INVALID FOR*09/13/2017 More... Tobacco use during , antepartum [O99.3*INVALID FOR*09/13/2017 More... complicated by subutex maintenance, a*INVALID FOR* More... History of depression [Z86.59] INVALID FOR*09/13/2017 More... Family history of herpes genitalis [Z83.1] INVALID FOR*09/13/2017 Supervision of high risk , antepartum *INVALID FOR*09/13/2017 UTI in , antepartum [O23.40] INVALID FOR* More... History of depression [Z87.59, Z86.5*INVALID FOR* More... Tobacco use in , antepartum [O99.330] INVALID FOR* More... Nausea/vomiting in [O21.9] INVALID FOR* More... Patient requested diagnostic testing [Z01.89] INVALID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 REPOSITORY TYPE CODE TESTS RESULT OUT OF REFERENCE UNITS RANGE LAB UPCP2 Negative Negative Phencyclidin e, Urine Result Comment: Cutoff threshold at 25 ng/mL. LAB UBENZ2 Negative Benzodiazepines, Ur Negative Result Comment: Cutoff threshold at 200 ng/mL. LAB UCOC2 Negative Cocaine, Negative Urine Result Comment: Cutoff threshold at 300 ng/mL. LAB UAMPH2 Negative Amphetamines, Urine Negative Result Comment: Cutoff threshold at 1000 ng/mL. LAB UTHC2 Negative Cannabinoids, Abnormal Urine Preliminary Alert positive. Result Comment: Cutoff threshold at 50 ng/mL. LAB UOPI2 Negative Opiates, Negative Urine Result Comment: Cutoff threshold at 300 ng/mL. LAB UBARB2 Negative Barbiturates, Urine Negative Result Comment: Cutoff threshold at 200 ng/mL. LAB UETOH <11 mg/dL <11 Ethanol, Urine LAB UOXYC Negative Oxycodone, Negative Urine Result Comment: Cutoff threshold at 100 ng/mL. Comment: Immunoassay screen only. Cross reactivity with other substances can occur with immunoassay screening. Detection of any drug(s) in this urine toxicology panel is presumptive only. These tests are for med ical purposes only and should not be used for compliance monitoring, legal, or forensic use. In clinical settings, confirmatory testing is at the practitioner's discretion [1]. If clinically indicated, confirmation by high specificity, quantitative methodology may be requested on the same speci men through Client Services ([phone]) if contacted within 48 hours of initial testing. [1]Substance Abuse and Mental Health Services Administration (2012). Clinical Drug Testing in Primary Care Technical Assistance Publication Series 32. Department of Health and Human Services, [place], p.10. These tests were developed and their performance characteristics determined by [facility]'s [facility] [place] ([facility]). They have not been cleared or a pproved by the FDA. [facility] is regulated under CLIA as qualified to perform high complexity testing. These tests are used for clinical purposes. They should not be regarded as investigational or for research. Performed By: #### UTOX2 #### [facility] [address] [place], [place] [address] Observed: 09/13/2017 Status: F Source: [place] URINE CULTURE 3:15 PM [facility] REPOSITORY Sp. Request/Comment: - Specimen received in preservative Culture Result - No growth (<1,000 CFU/ml) Performed By: #### URCUL #### [facility] [address] [place], [place] [address] GC/CHLAMYDIA AMPLIF Collected: 09/13/2017 Status: F Source: [place] 3:15 PM [facility] REPOSITORY TYPE CODE TESTS RESULT OUT OF REFERENCE UNITS RANGE LAB GCCTSR GC/Chlam Amp Cervix Source LAB GCAMPL GC Negative Amplification for Neisseria gonorrhoeae by amplification. LAB CLAMPL Chlamydia Negative Amplif for Chlamydia trachomatis by amplification. Performed By: #### GCCT #### [facility] [address] [place], [place] [address] CYTOLOGY Observed: 09/13/2017 Status: F Source: [place] 2:55 PM [facility] REPOSITORY Specimen originated from [facility] Specimen #: [id number] Submitting Physician: AXEL HUANG MD SPECIMEN SUBMITTED A: CERVICAL, SCREENING, FLUID FINAL DIAGNOSIS A. CERVICAL, SCREENING, FLUID Satisfactory for interpretation. Negative for intraepithelial lesion or malignancy. This specimen has been analyzed by the ThinPrep Imaging System, an automated imaging and review system, which assists the laboratory in evaluating cells on ThinPrep Pap tests. Following automated imaging, selected cobb from every slide are reviewed by a weapons system instrument mechanic. NATALIE Schmidt(ASCP) (Electronic Signature) CLINICAL DATA ROUTINE EXAM, HPV Testing: Yes, Reflex HPV for ASCUS Date of Last Menstrual Period: 07/06/2017 Menstrual History: Additional Testing: Reflex HPV testing for ASCUS STAINS A: CERVICAL, SCREENING, FLUID THIN PREP CAP SIZER Merline Lantigua M.D., Rails Developer Date of Report: 09/21/2017 Date of Procedure: 09/13/2017 Date of Receipt: 09/17/2017 Submitted by: AXEL HUANG MD Location: [facility] Diagnostic interpretation performed at [facility], [address] [place] [address]. The Pap Smear is a screening test for cervical cancer. False negative results occur with all screening tests, emphasizing the need for rescreening at recommended intervals, and clinical correlation. PROGRESS Observed: 09/13/2017 Status: COMPLETED Source: [place] 2:21 PM [facility] REPOSITORY HNO ID: [id number] Author: Axel Huang Service: (none) Author Type: Physician Type: Progress Notes Filed: 09/13/2017 4:28 PM Note Text: INITIAL OB ASSESSMENT SBIRT Reji Lorenzo was given the 4P's screening tool. Reji answered as follows: OB Opioid Screening - Last Recorded (since 12/17/2016) Did any of your parents have a problem with alcohol or other drug use? (!) Yes (both parents had ETOH and drug use issues) Does your partner have a problem with alcohol or other drug use? No In the past, have you had difficulties in your life because of alcohol or other drugs, including prescription medications? (!) Yes In the past month have you drunk any alcohol or used other drugs? (!) Yes (Marijuana 3 weeks ago) Are you taking medication for pain during the either prescribed or not? No Based on the screen and further questions, she is considered at moderate risk due to: High use in the past including recent treatment. Patient offered on subutex, in counseling (brother last year in car accident). In discussing this issue my medical advice was that Reji Lorenzo abstain and see specialized treatment. Her readiness to change(0 lowest - 10 highest) was 9. We discusssed her motivation to change based upon this response. Patient agreed that she would: see specialized treatment. Patient will return in 4 weeks to discuss her progress with this plan. In total, 10 minutes of personal time was spent administering and interpreting the screen, plus performing a brief intervention. Axel Huang MD HPI: Reji Lorenzo is a 21 year old female here to establish Obstetrical Care. Patient's last menstrual period was 07/06/2017 (exact date). from OB Dating Form. Complaints: nausea and vomiting, tolerating PO was unplanned but accepted. Obstetric History T1 L1 SAB0 TAB0 Ectopic0 Multiple0 Live Births1 Prior : never History of 4th degree laceration: No Patient's Risk Screening for delivery: History of abnormal pap: No Prior treatment for cervical dysplasia: none. 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 Patient BMI over 30? No Marital Status: Partner: Name: Luigi PAST MEDICAL HISTORY Diagnosis Date - Anemia complicating 12/31/2014 - Chlamydia - Depression - fracture 11 years old collarbone - Fracture age 7 left leg - Herpes simplex without mention of complication - History of bleeding ulcers - History of heroin use - Ovarian cyst - PID (acute pelvic inflammatory disease) PAST SURGICAL HISTORY Procedure Laterality Date - EGD W/O OR W/BRUSH/WASH 06/08/14 EGD Current Outpatient Prescriptions on File Prior to Visit: Sewtkjie-Kj-Uyg-Fe-FA ( VITAMIN) tab Take 1 tablet by mouth. buprenorphine HCl (SUBUTEX SUBLINGUAL) Dissolve under the tongue. promethazine (PHENERGAN) 25 mg tablet Take 1 tablet by mouth every 6 hours as needed. TAKE ONE TABLET EVERY 6 HOURS PRN phenazopyridine (PYRIDIUM, GERIDIUM) 100 mg tablet Take 1 tablet by mouth three times daily as needed. LORazepam (ATIVAN) 0.5 mg tab Take 1 tablet by mouth three times daily as needed (anxiety). No current facility-administered medications on file prior to visit. Review of Systems: GENERAL: Negative for: Fever or Chills HEENT: Negative for: Headache, Impaired Vision, Ringing in Ears, Nosebleeds NECK: Negative for: Swelling, Pain, Stiffness RESPIRATORY: Negative for: Cough, Shortness of breath, Wheezing GASTROINTESTINAL: Negative for: Heartburn, Constipation, Diarrhea, Blood in stool, Vomiting MUSCULOSKELETAL: Negative for: Muscle or joint pain, stiffness, Joint swelling NEUROLOGIC/PSYCHIATRIC: Negative for: Weakness, Paralysis, Numbness, Tingling, Tremor, Depression, Memory loss, some anxiety over h/o miscarriage SKIN: Negative for: Rash, Itching GENITOURINARY: Negative for: vaginal itching, vaginal discharge, hematuria or dysuria PHYSICAL EXAM: LMP 07/06/2017 GENERAL: pleasant female in no apparent distress DERMATOLOGY: Normal, without lesions, non-icteric and non-hirsute NECK: Supple, full range of motion, no adenopathy and thyroid normal CHEST: Normal inspiratory effort BREAST: soft, non-tender, symmetric, no dominant mass, normal nipple-areolar complex, no lymphadenopathy and no nipple discharge ABDOMEN: soft, non-tender and no masses NEURO: alert and oriented x3,exam grossly non-focal PELVIS: External genitalia normal without lesions. Perineal body intact. No vaginal or cervical lesions. Cervix closed. Uterus 9 week size. No adnexal masses or tenderness. Clinical Pelvimetry: Pelvimetry clinically assessed as adequate Limited OB ultrasound exam: single intrauterine and positive cardiac activity ASSESSMENT: 21 year old at 8AND5 wks gestational age PLAN: 1) Patient oriented to practice. Discussed nutrition, folic acid supplementation, dietary guidelines, exercise, smoking, alcohol, caffeine, and drug use. Discussed routine OB labs including STD/HIV. Discussed aneuploidy screening options including serum screening and nuchal translucency. CF carrier screening discussed and declined (done in 2014) 2) See problem list Follow up in 4 weeks or sooner prn. Axel Huang MD PROGRESS Observed: 08/30/2017 Status: COMPLETED Source: [place] 12:00 PM [facility] REPOSITORY HNO ID: [id number] Author: Jackson Marie RN Service: (none) Author Type: (none) Type: Progress Notes Filed: 08/30/2017 12:34 PM Note Text: #: 1, Date: 02/16/15, Sex: Male, Weight: 6 lb 6.4 oz (2.903 kg), GA: 38w0d, Delivery: Vaginal, Spontaneous Delivery, Apgar1: 8, Apgar5: 9, Living: Living, Comments: spontaneous labor, bilateral 1st degree vaginal laceration, EBL 300cc #: 2, Date: 10/24/16, Sex: None, Weight: None, GA: 8w0d, Delivery: SPONTANEOUS , Apgar1: None, Apgar5: None, Living: None, Comments: None #: 3, Date: None, Sex: None, Weight: None, GA: None, Delivery: None, Apgar1: None, Apgar5: None, Living: None, Comments: None CNNURSE Observed: 08/30/2017 Status: COMPLETED Source: [place] 11:00 AM [facility] REPOSITORY Nurse Visit (WOOB) REJI LORENZO ([id number]) 1995 F NFR Date Time Provider Department 08/30/17 11:00 AM NURSE PNOB [facility] WSTR WOOB During your visit today, we recorded the following information about you: Last Period 07/06/17 Jackson Marie RN 08/30/2017 11:41 AM Signed SEQUENTIAL SCREENINGS The [facility] offers sequential screenings for women who are interested in screenings for chromosomal abnormalities and certain defects during a . The sequential screen combines ultrasound and blood tests to determine the risk of chromosomal abnormalities, including Down's Syndrome (Trisomy 21) and Trisomy 18, as well as open neural tube defects including spina bifida. Ultrasound examination is performed between 11 weeks and 13 weeks gestational age. Blood tests are drawn after the ultrasound and again later in the between 15 and 21 weeks gestational age. Please let your physician know if you are interested in this testing. It will require an appointment with our apprentice technician. This is not an ultrasound performed by a physician in our office during a routine visit. SIGNS AND SYMPTOMS OF LABOR 1. Contractions every 10 minutes or more often 2. Clear, pink, or brownish fluid (water) leaking from vagina 3. Feeling that baby is pushing down, pressure 4. Low, dull backache 5. Cramps that feel like a period 6. Cramps with or without diarrhea If you notice any of the above symptoms, contact our office at [phone] and ask to speak with a nurse. After hours, you can call doctors registry at [phone] OR call [facility] at [phone] and ask to have the doctor call person paged. If you consider this an emergency, dial 9-1-1 or go to your nearest emergency department. Cord-Blood Banking Up until recently, the umbilical cord--along with the blood that remained in it after a baby was born and the cord cut--was simply discarded by the hospital. Then, in the late , researchers discovered that cord blood possessed unusual properties that made it useful in the treatment of patients with some cancers and other illnesses. While the actual process of collecting cord blood is straightforward, many parents are not even aware that this option now exists, much less familiar with all the issues involved. The case for saving your baby's cord blood The blood running back and forth between your baby and the placenta is full of immature cells called stem cells. Unlike embryonic stem cells, which have the ability to develop into any type of body cell, cord-blood stem cells already are locked into a certain, vital function: making all the different components of the blood, such as platelets, white blood cells, and red blood cells-serving, in effect, like bone marrow. When transfused into a patient whose own blood cells have faulty genetic coding or have been destroyed by chemotherapy or other cancer treatments, the cord-blood cells can implant themselves in the bone marrow and generate legions of new, healthy cells. These days, cord-blood transplants most commonly are used in cancer patients when a donor can't be found for a bone-marrow transplant. The treatment is particularly effective in young patients-the [facility] Cord Blood Bank reports a 70 percent success rate in children, but only 20 to 40 percent in adults. Researchers envision improving those odds and see many future applications as well, such as curing sickle cell disease and other blood-related genetic illnesses. So there is a possibility that your child, or someone else, may need these super-healthy and versatile cells one day. The drawbacks Aside from not knowing about this medical option, the main reason most people do not save their baby's stem cells is cost. In a private blood bank, the initial costs run from $275 to $1,500. Most also charge a yearly storage fee of $50 to $95. The advantage of using a private bank is that your sample is saved for only you to use. An alternative to private banking Public cord-blood torrez are an alternative. These cost no money to use, but your sample is not specifically saved for you. Another person with a more immediate need may use it. If the time should come that you need stem cells, yours may still be available, or you may use donations from other people without charge. You also can direct your sample to go to a relative with an immediate need if the blood type matches. Anyone else needing to use stem cells from a public bank who has not been a donor must pay for it, sometimes tens of thousands of dollars. Will my family benefit from saving stem cells? Right now, situations in which stem cells would be helpful are quite rare. As mentioned earlier, stem-cell transplants are most commonly used for rare genetic conditions and for some types of cancer, including leukemia and lymphoma. And even with these present uses, many questions remain. In cancer treatment, for example, some researchers are concerned about the wisdom of transplanting back into the child the same cells that already showed a propensity to become malignant. Doctors also aren't sure if the number of cells taken at the time of would be enough to treat a full-grown 16-year-old. It is also not completely clear how active the cells would be after years of being stored. The treatment is so new and rare, we just don't have the data yet to resolve these important issues. What do the experts say? The [place] [employer] encourages philanthropic blood banking in public torrez, but only for families with a current or potential need. Blood-bank proponents encourage any kind of banking, pointing out that research is getting closer and closer to many diverse, live-saving applications. How do I decide? Each family must weigh the pros and cons for themselves. Some families say that any cost is worth their peace of mind. Others say that in the face of uncertainty about the effectiveness of the treatment, they will use their resources elsewhere. Some choose the middle ground of donating publicly, knowing that their sample might benefit another family, if not themselves. For more information, ask your doctor or nurse, and be sure to check out our article on the technical aspects of cord-blood banking. Technical Aspects of Cord-Blood Banking If you are interested in storing your baby's umbilical-cord blood because of its possible use in emerging medical treatments, you must make arrangements with a blood bank before your child is born. The collection procedure is quite simple: After delivery of the baby, the umbilical cord is clamped and cut in the usual way. The blood that remains in the umbilical-cord vessels is then collected in sterile containers. The blood may be removed from the cord with a large needle or allowed to flow freely, depending on the company's collection system. The containers may look like large test tubes or like the plastic bags used in a blood bank. It does not cause the mother or the baby any pain to collect the blood, and no blood is taken that the baby needs at the moment. The nurse, endoscopy support specialist, or physician will then label the samples, check them over with you, and package them for a special pickup arranged with a commercial carrier. When the blood arrives at the blood-bank facility, it is processed and the parents are notified. It is then kept in an advanced storage system for years. How do I know that my sample is safe? Power outages and bankruptcies potentially could threaten any organization, but so far none have been reported. It is to be hoped that the scientists in these torrez would arrange for safe transfer to another facility if the need arose. YOU MUST MAKE ARRANGEMENTS AHEAD OF TIME! Public cord-blood torrez--DONATION: [employer] [phone] [facility], [place], Operated By [facility]'s Placental Blood Program, [facility] Umbilical Cord Blood Bank, Private cord-blood torrez--SAVING FOR YOUR OWN USE: [employer], (I think this is the least expensive) [employer] [phone] [employer], [phone]) [employer] [place] [facility], [phone], [phone] [place] [facility], Cord Blood Registry, (104) [employer], An Internet search may provide you with additional listings. Jackson Marie RN 08/30/2017 12:34 PM Signed #: 1, Date: 02/16/15, Sex: Male, Weight: 6 lb 6.4 oz (2.903 kg), GA: 38w0d, Delivery: Vaginal, Spontaneous Delivery, Apgar1: 8, Apgar5: 9, Living: Living, Comments: spontaneous labor, bilateral 1st degree vaginal laceration, EBL 300cc #: 2, Date: 10/24/16, Sex: None, Weight: None, GA: 8w0d, Delivery: SPONTANEOUS , Apgar1: None, Apgar5: None, Living: None, Comments: None #: 3, Date: None, Sex: None, Weight: None, GA: None, Delivery: None, Apgar1: None, Apgar5: None, Living: None, Comments: None Referring Provider: SELF [200] Allergies As of Date: 08/30/2017 Noted Allergy Reaction BENADRYL (DIPHENHYDRAMINE HCL) 05/28/2014 14 - Other: See Comments Comments: Hyper/anxiety PENICILLINS 06/19/2005 2 - Rash Date Reviewed: 08/30/2017 Reviewed by: Jackson Marie RN - Fully Assessed Reason for Visit: Care [86] Cmt: Pre-New OB Primary Visit Diagnosis: complicated by subutex maintenance, antepartum (HCC) [O99.320, F11.20, Z79.891] Other Visit Diagnoses:Supervision of high risk , antepartum [O09.90] UTI in , antepartum [O23.40] History of depression [Z87.59, Z86.59] Tobacco use in , antepartum [O99.330] Nausea/vomiting in [O21.9] Patient requested diagnostic testing [Z01.89] Order(s):GREGOR PT ED RELIEF PHARMACIST [] Order #: [id number]: 1 FUTURE GREGOR PT ED RELIEF PHARMACIST [] Order #: [id number]: 1 FUTURE GREGOR PT ED ANESTHESIA [[id number]] Order #: [id number]: 1 FUTURE GREGOR PT ED RELIEF PHARMACIST [] Order #: [id number]: 1 FUTURE GREGOR WHAT TO EXPECT DURING YOUR HOSPITAL STAY [] Order #: [id number]: 1 FUTURE GREGOR PT ED RELIEF PHARMACIST [] Order #: [id number]: 1 FUTURE GREGOR PT ED RELIEF PHARMACIST [] Order #: [id number]. #:[id number]: 1 GREGOR PT ED RELIEF PHARMACIST [] Order #: [id number]. #:[id number]: 1 GREGOR PT ED ANESTHESIA [[id number]] Order #: [id number]. #:[id number]: 1 GREGOR PT ED RELIEF PHARMACIST [] Order #: [id number]. #:[id number]: 1 GREGOR WHAT TO EXPECT DURING YOUR HOSPITAL STAY [] Order #: [id number]. #:[id number]: 1 GREGOR PT ED RELIEF PHARMACIST [] Order #: [id number]. #:[id number]: 1 OBSTETRIC ULTRASOUND WHI [] Order #: [id number]: 1 Prescriptions as of 08/30/2017 Sig: VITAMIN,CALCIUM,MINE* Take 1 tablet by mouth. SUBUTEX SUBLINGUAL Dissolve under the tongue. PROMETHAZINE 25 MG TABLET Take 1 tablet by mouth every * PHENAZOPYRIDINE 100 MG TABLET Take 1 tablet by mouth three * LORAZEPAM 0.5 MG TABLET Take 1 tablet by mouth three * Medication notes this encounter LORAZEPAM 0.5 MG TABLET >> Jackson Marie RN 08/30/2017 11:19 AM >> JACKSON MARIE RN [facility] Aug 30, 2017 11:19 AM No longer taking Problem List As Of Date 08/30/2017 Noted Resolved Narcotic abuse in remission [F11.11] INVALID FOR* More... Depression [F32.9] INVALID FOR* GERD (gastroesophageal reflux disease) [K21.9] INVALID FOR* Tobacco use disorder [F17.200] INVALID FOR* UTI in , antepartum [O23.40] INVALID FOR*02/25/2015 Supervision of normal first [Z34.00] INVALID FOR*09/10/2014 FHx: cystic fibrosis [Z83.49] INVALID FOR* More... Supervision of normal [Z34.90] INVALID FOR*07/15/2014 Supervision of normal first teen [Z34*INVALID FOR*02/25/2015 More... Herpes simplex type 2 (HSV-2) infection affecti*INVALID FOR*02/25/2015 More... Rubella non-immune status, antepartum [O99.89, *INVALID FOR*02/25/2015 Anemia complicating [O99.019] INVALID FOR*05/29/2016 Uterine size-date discrepancy [O26.849] INVALID FOR*02/25/2015 Anxiety [F41.9] INVALID FOR* with uncertain dates, antepartum [Z34*INVALID FOR* More... Tobacco use during , antepartum [O99.3*INVALID FOR* More... complicated by subutex maintenance, a*INVALID FOR* More... History of depression [Z86.59] INVALID FOR* More... Family history of herpes genitalis [Z83.1] INVALID FOR* Supervision of high risk , antepartum *INVALID FOR* UTI in , antepartum [O23.40] INVALID FOR* More... History of depression [Z87.59, Z86.5*INVALID FOR* More... Tobacco use in , antepartum [O99.330] INVALID FOR* More... Nausea/vomiting in [O21.9] INVALID FOR* More... Patient requested diagnostic testing [Z01.89] INVALID FOR* More... Other instructions from your clinician: SEQUENTIAL SCREENINGS The [facility] offers sequential screenings for women who are interested in screenings for chromosomal abnormalities and certain defects during a . The sequential screen combines ultrasound and blood tests to determine the risk of chromosomal abnormalities, including Down's Syndrome (Trisomy 21) and Trisomy 18, as well as open neural tube defects including spina bifida. Ultrasound examination is performed between 11 weeks and 13 weeks gestational age. Blood tests are drawn after the ultrasound and again later in the between 15 and 21 weeks gestational age. Please let your physician know if you are interested in this testing. It will require an appointment with our apprentice technician. This is not an ultrasound performed by a physician in our office during a routine visit. SIGNS AND SYMPTOMS OF LABOR 1. Contractions every 10 minutes or more often 2. Clear, pink, or brownish fluid (water) leaking from vagina 3. Feeling that baby is pushing down, pressure 4. Low, dull backache 5. Cramps that feel like a period 6. Cramps with or without diarrhea If you notice any of the above symptoms, contact our office at [phone] and ask to speak with a nurse. After hours, you can call doctors registry at [phone] OR call [facility] at [phone] and ask to have the doctor call person paged. If you consider this an emergency, dial [phone]--1 or go to your nearest emergency department. Cord-Blood Banking Up until recently, the umbilical cord--along with the blood that remained in it after a baby was born and the cord cut--was simply discarded by the hospital. Then, in the late , researchers discovered that cord blood possessed unusual properties that made it useful in the treatment of patients with some cancers and other illnesses. While the actual process of collecting cord blood is straightforward, many parents are not even aware that this option now exists, much less familiar with all the issues involved. The case for saving your baby's cord blood The blood running back and forth between your baby and the placenta is full of immature cells called stem cells. Unlike embryonic stem cells, which have the ability to develop into any type of body cell, cord-blood stem cells already are locked into a certain, vital function: making all the different components of the blood, such as platelets, white blood cells, and red blood cells-serving, in effect, like bone marrow. When transfused into a patient whose own blood cells have faulty genetic coding or have been destroyed by chemotherapy or other cancer treatments, the cord-blood cells can implant themselves in the bone marrow and generate legions of new, healthy cells. These days, cord-blood transplants most commonly are used in cancer patients when a donor can't be found for a bone-marrow transplant. The treatment is particularly effective in young patients- the [facility] Cord Blood Bank reports a 70 percent success rate in children, but only 20 to 40 percent in adults. Researchers envision improving those odds and see many future applications as well, such as curing sickle cell disease and other blood-related genetic illnesses. So there is a possibility that your child, or someone else, may need these super-healthy and versatile cells one day. The drawbacks Aside from not knowing about this medical option, the main reason most people do not save their baby's stem cells is cost. In a private blood bank, the initial costs run from $275 to $1,500. Most also charge a yearly storage fee of $50 to $95. The advantage of using a private bank is that your sample is saved for only you to use. An alternative to private banking Public cord-blood torrez are an alternative. These cost no money to use, but your sample is not specifically saved for you. Another person with a more immediate need may use it. If the time should come that you need stem cells, yours may still be available, or you may use donations from other people without charge. You also can direct your sample to go to a relative with an immediate need if the blood type matches. Anyone else needing to use stem cells from a public bank who has not been a donor must pay for it, sometimes tens of thousands of dollars. Will my family benefit from saving stem cells? Right now, situations in which stem cells would be helpful are quite rare. As mentioned earlier, stem-cell transplants are most commonly used for rare genetic conditions and for some types of cancer, including leukemia and lymphoma. And even with these present uses, many questions remain. In cancer treatment, for example, some researchers are concerned about the wisdom of transplanting back into the child the same cells that already showed a propensity to become malignant. Doctors also aren't sure if the number of cells taken at the time of would be enough to treat a full-grown 16-year-old. It is also not completely clear how active the cells would be after years of being stored. The treatment is so new and rare, we just don't have the data yet to resolve these important issues. What do the experts say? The [place] [employer] encourages philanthropic blood banking in public torrez, but only for families with a current or potential need. Blood-bank proponents encourage any kind of banking, pointing out that research is getting closer and closer to many diverse, live-saving applications. How do I decide? Each family must weigh the pros and cons for themselves. Some families say that any cost is worth their peace of mind. Others say that in the face of uncertainty about the effectiveness of the treatment, they will use their resources elsewhere. Some choose the middle ground of donating publicly, knowing that their sample might benefit another family, if not themselves. For more information, ask your doctor or nurse, and be sure to check out our article on the technical aspects of cord-blood banking. Technical Aspects of Cord-Blood Banking If you are interested in storing your baby's umbilical- cord blood because of its possible use in emerging medical treatments, you must make arrangements with a blood bank before your child is born. The collection procedure is quite simple: After delivery of the baby, the umbilical cord is clamped and cut in the usual way. The blood that remains in the umbilical-cord vessels is then collected in sterile containers. The blood may be removed from the cord with a large needle or allowed to flow freely, depending on the company's collection system. The containers may look like large test tubes or like the plastic bags used in a blood bank. It does not cause the mother or the baby any pain to collect the blood, and no blood is taken that the baby needs at the moment. The nurse, endoscopy support specialist, or physician will then label the samples, check them over with you, and package them for a special pickup arranged with a commercial carrier. When the blood arrives at the blood- bank facility, it is processed and the parents are notified. It is then kept in an advanced storage system for years. How do I know that my sample is safe? Power outages and bankruptcies potentially could threaten any organization, but so far none have been reported. It is to be hoped that the scientists in these torrez would arrange for safe transfer to another facility if the need arose. YOU MUST MAKE ARRANGEMENTS AHEAD OF TIME! Public cord-blood torrez--DONATION: [employer] [phone] [facility], [place], Operated By [facility] Placental Blood Program, [facility] Umbilical Cord Blood Bank, Private cord-blood torrez--SAVING FOR YOUR OWN USE: [employer], (I think this is the least expensive) [employer] [phone] [employer], ([phone]) [employer] [place] [facility] Blood [facility], [phone] Cells, [phone] [place] [facility], Cord Blood Registry, ([phone]) CORDBLOOD [employer], An Internet search may provide you with additional listings. Disposition: Return in 5 days (on 09/04/2017) for New OB with Dr Huang. Follow-up and Disposition History Recorded Letter Text Dear Reji Lorenzo: How to activate your [facility] Oncovision Account 1. Visit the Oncovision Signup page at [email or web address] 2. Identify yourself using your one-time use activation code: [email or web address] 3. Follow the on-screen prompts to choose your own secure username and password The following information will be necessary to access your account for the first time: Information needed for sign-up: Your custom activation code used one-time only for the initial account set-up. Your date of The last 4 digits of your social security number What to do next: Fill in the requested information on the Identify Yourself Form at [email or web address] , click Next. Create your login and password, choose a Oncovision ID and password that will be easy for you to use, but impossible for anyone else to guess. Pick a security question that will assist you in the event you forget your password the next time you log-on. If you have difficulty activating your account, please call our Oncovision helpline at [phone] or toll free at . We hope you enjoy using Oncovision! Kindest Regards, [facility] Oncovision Team Encounter Status:Closed by JACKSON MARIE RN on 08/30/17 Observed: 08/21/2017 Status: F Source: [place] URINE CULTURE 4:24 PM [facility] REPOSITORY Sp. Request/Comment: - Specimen received in preservative Culture Result - >=100,000 CFU/ml Staphylococcus epidermidis --> ABNORMAL ALERT ORGANISM: Staphylococcus epidermidis METHOD: Minimum inhibitory concentration(Vitek) Antibiotic Interp DAYDAY Status Trimeth sulfameth SUSCEPTIBLE <=10 F Oxacillin SUSCEPTIBLE <=0.25 F Oxacillin susceptible staphylococci are susceptible to other penicillinase stable penicillins, beta lactam/beta lactamase inhibitor combinations, anti staphyloccal cephems, and carbapenems. Vancomycin SUSCEPTIBLE 1 F Tetracycline RESISTANT >=16 F Gentamicin SUSCEPTIBLE <=0.5 F Nitrofurantoin SUSCEPTIBLE <=16 F Rifampin SUSCEPTIBLE <=0.5 F Rifampin should not be used alone for antimicrobial therapy. Doxycycline SUSCEPTIBLE 4 F Performed By: #### URCUL #### [facility] [address], [place] [address] PROGRESS Observed: 08/21/2017 Status: COMPLETED Source: [place] 3:58 PM [facility] REPOSITORY HNO ID: [id number] Author: Daily Chiang) [place] Service: (none) Author Type: Nurse Practitioner Type: Progress Notes Filed: 08/21/2017 4:24 PM Note Text: Reji Lorenzo is a 21 year old female who presents for problem visit dysuria and with blood in urine for 4 days. HPI: pt states that she notice the burning with urination about 4 days ago and today it became much worst. Denies any fevers or chills. Did have a + test at home LMP 3-3-18, denies any abdominal cramping or vaginal bleeding. PAST MEDICAL HISTORY Diagnosis Date - Anemia complicating 12/31/2014 - Chlamydia - Depression - fracture 11 years old collarbone - Fracture age 7 left leg - Herpes simplex without mention of complication - History of bleeding ulcers - Ovarian cyst - PID (acute pelvic inflammatory disease) PAST SURGICAL HISTORY Procedure Laterality Date - EGD W/O OR W/BRUSH/WASH 06/08/14 EGD FAMILY HISTORY Problem Relation Age of Onset - Alcohol/Drug Mother - Alcohol/Drug Father - Seizures Sister - SIDS [OTHER] Brother - Breast Cancer Maternal Grandmother - Cancer Paternal Grandmother Lymphoma - Cancer Paternal Grandfather - Diabetes Paternal Grandfather Paternal/Materal sides Social History Marital status: Spouse name: Luigi Years of education: GED Number of children: 1 Occupational History Occupation Employer Comment unemployed Social History Main Topics Smoking status: Current Every Day Smoker Packs/day: 0.50 Years: 7.00 Types: Cigarettes Start date: 03/17/2010 Smokeless status: Never Used Alcohol use: No Drug use: Yes Comment: Yodit, denies at today's visit 03/16/2017 Sexual activity: Yes Partners with: Male control/protection: None Current Outpatient Prescriptions: LORazepam (ATIVAN) 0.5 mg tab Take 1 tablet by mouth three times daily as needed (anxiety). No current facility-administered medications for this visit. Allergies As of Date: 08/21/2017 Allergen Noted Reaction BENADRYL [DIPHENHYDRAMINE HCL] 05/28/2014 Other: See Comments PENICILLINS 06/19/2005 Rash Fully Assessed 03/23/2017 REVIEW OF SYSTEMS Abdomen: No bloating, early satiety, indigestion, or increased flatulence. No abdominal pain, nausea, vomiting, diarrhea, or constipation. Bladder: Having dysuria, gross hematuria, urinary frequency, urinary urgency. Expanded ROS: N/A Allergies and current medication updated:Yes EXAM: There were no vitals taken for this visit. GENERAL: pleasant, female in no apparent distress CHEST: Normal inspiratory effort ABDOMEN: soft, non-tender and no masses NEURO: alert and oriented x3,exam grossly non-focal EXTREMITIES: normal ASSESSMENT AND PLAN: No diagnosis found. UTI- macrobid and pyridium ordered Urine culture sent +urine Pt to schedule PNOB and NOB appt Daily Acuna APRN.EDILBERTO CNOV Observed: 08/21/2017 Status: COMPLETED Source: [place] 3:30 PM [facility] REPOSITORY Office Visit (WOOB) REJI LORENZO ([id number]) 1995 F NFR Date Time Provider Department 08/21/17 3:30 PM DAILY ACUNA (EDILBERTO) WOOB During your visit today, we recorded the following information about you: Blood pressure Weight Last Period 112/70 58 kg 07/06/17 Daily Acuna APRN.CNP 08/21/2017 4:24 PM Signed Rejisarah Lorenzo is a 21 year old female who presents for problem visit dysuria and with blood in urine for 4 days. HPI: pt states that she notice the burning with urination about 4 days ago and today it became much worst. Denies any fevers or chills. Did have a + test at home LMP 3-3-18, denies any abdominal cramping or vaginal bleeding. PAST MEDICAL HISTORY Diagnosis Date - Anemia complicating 12/31/2014 - Chlamydia - Depression - fracture 11 years old collarbone - Fracture age 7 left leg - Herpes simplex without mention of complication - History of bleeding ulcers - Ovarian cyst - PID (acute pelvic inflammatory disease) PAST SURGICAL HISTORY Procedure Laterality Date - EGD W/O OR W/BRUSH/WASH 06/08/14 EGD FAMILY HISTORY Problem Relation Age of Onset - Alcohol/Drug Mother - Alcohol/Drug Father - Seizures Sister - SIDS [OTHER] Brother - Breast Cancer Maternal Grandmother - Cancer Paternal Grandmother Lymphoma - Cancer Paternal Grandfather - Diabetes Paternal Grandfather Paternal/Materal sides Social History Marital status: Spouse name: Luigi Years of education: GED Number of children: 1 Occupational History Occupation Employer Comment unemployed Social History Main Topics Smoking status: Current Every Day Smoker Packs/day: 0.50 Years: 7.00 Types: Cigarettes Start date: 03/17/2010 Smokeless status: Never Used Alcohol use: No Drug use: Yes Comment: Heroine, denies at today's visit 03/16/2017 Sexual activity: Yes Partners with: Male control/protection: None Current Outpatient Prescriptions: LORazepam (ATIVAN) 0.5 mg tab Take 1 tablet by mouth three times daily as needed (anxiety). No current facility-administered medications for this visit. Allergies As of Date: 08/21/2017 Allergen Noted Reaction BENADRYL [DIPHENHYDRAMINE HCL] 05/28/2014 Other: See Comments PENICILLINS 06/19/2005 Rash Fully Assessed 03/23/2017 REVIEW OF SYSTEMS Abdomen: No bloating, early satiety, indigestion, or increased flatulence. No abdominal pain, nausea, vomiting, diarrhea, or constipation. Bladder: Having dysuria, gross hematuria, urinary frequency, urinary urgency. Expanded ROS: N/A Allergies and current medication updated:Yes EXAM: There were no vitals taken for this visit. GENERAL: pleasant, female in no apparent distress CHEST: Normal inspiratory effort ABDOMEN: soft, non-tender and no masses NEURO: alert and oriented x3,exam grossly non-focal EXTREMITIES: normal ASSESSMENT AND PLAN: No diagnosis found. UTI- macrobid and pyridium ordered Urine culture sent +urine Pt to schedule PNOB and NOB appt Daily Acuna APRN.STOCK CLIPPER Referring Provider: SELF [200] Allergies As of Date: 08/21/2017 Noted Allergy Reaction BENADRYL (DIPHENHYDRAMINE HCL) 05/28/2014 14 - Other: See Comments Comments: Hyper/anxiety PENICILLINS 06/19/2005 2 - Rash Date Reviewed: 08/21/2017 Reviewed by: Daily Chiang) Armand - Fully Assessed Primary Visit Diagnosis:Encounter for test, result positive [Z32.01] Other Visit Diagnosis:Dysuria [R30.0] Order(s):HCG QUAL UR B/O [[id number]] Order #: [id number] UA DIP B/O [[id number]] Order #: [id number] nitrofurantoin monohydrate and macrocrystal (MACROBID) 100 mg capsuleTake 1 capsule by mouth twice daily for 7 days. TAKE WITH FOODDisp: 14 capsuleRfl: 0 phenazopyridine (PYRIDIUM, GERIDIUM) 100 mg tabletTake 1 tablet by mouth three times daily as needed.Disp: 10 tabletRfl: 0 URINE CULTURE [SQURCUL] Order #: [id number]. #:[id number] Prescriptions as of 08/21/2017 Sig: NITROFURANTOIN MONOHYDRATE AND * Take 1 capsule by mouth twice* PHENAZOPYRIDINE 100 MG TABLET Take 1 tablet by mouth three * LORAZEPAM 0.5 MG TABLET Take 1 tablet by mouth three * Problem List As Of Date 08/21/2017 Noted Resolved Narcotic abuse in remission [F11.11] INVALID FOR* More... Depression [F32.9] INVALID FOR* GERD (gastroesophageal reflux disease) [K21.9] INVALID FOR* Tobacco use disorder [F17.200] INVALID FOR* UTI in , antepartum [O23.40] INVALID FOR*02/25/2015 Supervision of normal first [Z34.00] INVALID FOR*09/10/2014 FHx: cystic fibrosis [Z83.49] INVALID FOR* More... Supervision of normal [Z34.90] INVALID FOR*07/15/2014 Supervision of normal first teen [Z34*INVALID FOR*02/25/2015 More... Herpes simplex type 2 (HSV-2) infection affecti*INVALID FOR*02/25/2015 More... Rubella non-immune status, antepartum [O99.89, *INVALID FOR*02/25/2015 Anemia complicating [O99.019] INVALID FOR*05/29/2016 Uterine size-date discrepancy [O26.849] INVALID FOR*02/25/2015 Anxiety [F41.9] INVALID FOR* with uncertain dates, antepartum [Z34*INVALID FOR* More... Tobacco use during , antepartum [O99.3*INVALID FOR* More... complicated by subutex maintenance, a*INVALID FOR* More... History of depression [Z86.59] INVALID FOR* More... Family history of herpes genitalis [Z83.1] INVALID FOR* Supervision of high risk , antepartum *INVALID FOR* Prescriptions ordered this encounter Disp Refills Start End NITROFURANTOIN MONOHYDRATE AND MACROCR* 14 c* 0 08/21/2017 08/28/2017 Route: ORAL Sig: Take 1 capsule by mouth twice daily for 7 days. TAKE WITH FOOD PHENAZOPYRIDINE 100 MG TABLET 10 t* 0 08/21/2017 Route: ORAL Sig: Take 1 tablet by mouth three times daily as needed. Disposition: Return for PNOB and NOb with doc mynor. Follow-up and Disposition History Recorded Encounter Status:Closed by DAILY ACUNA on 08/21/17 MINH Observed: 06/01/2017 Status: COMPLETED Source: [place] 12:00 AM [facility] REPOSITORY Telephone (ORLYW[place]) REJI LORENZO ([id number]) 1995 F NFR Date Time Provider Department 06/01/17 MERLIN GARCIA During your visit today, we recorded the following information about you: Merlin Garcia MD 06/01/2017 8:20 AM Signed Negative x ray, scan. MD Jerzy Pearce Ma 06/07/2017 2:21 PM Signed Done. Allergies As of Date: 06/01/2017 Noted Allergy Reaction BENADRYL (DIPHENHYDRAMINE HCL) 05/28/2014 14 - Other: See Comments Comments: Hyper/anxiety PENICILLINS 06/19/2005 2 - Rash Date Reviewed: 03/23/2017 Reviewed by: Keisha ([facility]) COLLEEN Pinzon - Fully Assessed Reason for Visit: Results [95] Cmt: outside x ray . Prescriptions as of 06/01/2017 Sig: LORAZEPAM 0.5 MG TABLET Take 1 tablet by mouth three * Problem List As Of Date 06/01/2017 Noted Resolved Narcotic abuse in remission [F11.11] INVALID FOR* More... Depression [F32.9] INVALID FOR* GERD (gastroesophageal reflux disease) [K21.9] INVALID FOR* Tobacco use disorder [F17.200] INVALID FOR* UTI in , antepartum [O23.40] INVALID FOR*02/25/2015 Supervision of normal first [Z34.00] INVALID FOR*09/10/2014 FHx: cystic fibrosis [Z83.49] INVALID FOR* More... Supervision of normal [Z34.90] INVALID FOR*07/15/2014 Supervision of normal first teen [Z34*INVALID FOR*02/25/2015 More... Herpes simplex type 2 (HSV-2) infection affecti*INVALID FOR*02/25/2015 More... Rubella non-immune status, antepartum [O99.89, *INVALID FOR*02/25/2015 Anemia complicating [O99.019] INVALID FOR*05/29/2016 Uterine size-date discrepancy [O26.849] INVALID FOR*02/25/2015 Anxiety [F41.9] INVALID FOR* with uncertain dates, antepartum [Z34*INVALID FOR* More... Tobacco use during , antepartum [O99.3*INVALID FOR* More... complicated by subutex maintenance, a*INVALID FOR* More... History of depression [Z86.59] INVALID FOR* More... Family history of herpes genitalis [Z83.1] INVALID FOR* Supervision of high risk , antepartum *INVALID FOR* Encounter Status:Closed by JAVI GARCIA MD on 06/01/17 CNPN Observed: 05/31/2017 Status: COMPLETED Source: [place] 12:00 AM [facility] REPOSITORY Telephone (Hidden RadioWADS) REJI LORENZO ([id number]) 1995 F NFR Date Time Provider Department 05/31/17 MERLIN GARCIA Touch[employer]el During your visit today, we recorded the following information about you: Jerzy Terrazas Ma 05/31/2017 8:38 AM Signed Type of letter/form/fax Received XR R hand Form received from [facility] and placed on MD desk () for review. Route to [place] when form completed for processing Jerzy Terrazas Ma 06/07/2017 2:20 PM Signed Sent to scan. Jerzy Terrazas Ma Allergies As of Date: 05/31/2017 Noted Allergy Reaction BENADRYL (DIPHENHYDRAMINE HCL) 05/28/2014 14 - Other: See Comments Comments: Hyper/anxiety PENICILLINS 06/19/2005 2 - Rash Date Reviewed: 03/23/2017 Reviewed by: Keisha ([facility]) COLLEEN Pinzon - Fully Assessed Reason for Visit: Radiology XR [2321] Cmt: [facility] DOS 05/30/17 Prescriptions as of 05/31/2017 Sig: LORAZEPAM 0.5 MG TABLET Take 1 tablet by mouth three * Problem List As Of Date 05/31/2017 Noted Resolved Narcotic abuse in remission [F11.11] INVALID FOR* More... Depression [F32.9] INVALID FOR* GERD (gastroesophageal reflux disease) [K21.9] INVALID FOR* Tobacco use disorder [F17.200] INVALID FOR* UTI in , antepartum [O23.40] INVALID FOR*02/25/2015 Supervision of normal first [Z34.00] INVALID FOR*09/10/2014 FHx: cystic fibrosis [Z83.49] INVALID FOR* More... Supervision of normal [Z34.90] INVALID FOR*07/15/2014 Supervision of normal first teen [Z34*INVALID FOR*02/25/2015 More... Herpes simplex type 2 (HSV-2) infection affecti*INVALID FOR*02/25/2015 More... Rubella non-immune status, antepartum [O99.89, *INVALID FOR*02/25/2015 Anemia complicating [O99.019] INVALID FOR*05/29/2016 Uterine size-date discrepancy [O26.849] INVALID FOR*02/25/2015 Anxiety [F41.9] INVALID FOR* with uncertain dates, antepartum [Z34*INVALID FOR* More... Tobacco use during , antepartum [O99.3*INVALID FOR* More... complicated by subutex maintenance, a*INVALID FOR* More... History of depression [Z86.59] INVALID FOR* More... Family history of herpes genitalis [Z83.1] INVALID FOR* Supervision of high risk , antepartum *INVALID FOR* Encounter Status:Closed by JERZY TERRAZAS MA on 05/31/17 EMERGENCY DEPARTMENT Observed: 05/30/2017 Status: F Source: [place] [facility] 4:50 PM [facility] REPOSITORY [facility] Medical Records Department [address] [place] [address] Emergency Department Summary 05/30/17 1328 MR#: [id number] Acct: [id number] Name: REJI LORENZO Rep #: [id number] : 1995 From: Javi Steele MD PCP: Javi Garcia MD Status: DEP ER - ER Visit Summary Date of Service: 05/30/17 Chief Complaint: Right wrist pain History of Present Illness: The patient is a 21 F senior past medical or surgical history. Patient was inside a day tripped on her dog fell back hit a wall and caught herself with her right wrist complaint. The right distal radius and the dorsum of her hand. No prior history. No prior surgery to that hand. She is right-hand dominant. Denies other injuries. No LOC. Physical Examination: Young female no acute distress. Complaining of wrist pain. Vital signs stable afebrile. HEENT exam atraumatic. Neck nontender full range of motion. Back nontender. Lungs clear to auscultation bilaterally. Chest wall nontender. Heart regular rate and rhythm no murmur. Abdomen soft nontender. Left upper and both lower extremities are nontender with normal range of motion and no deformities. Right shoulder, elbow and proximal forearm showed no acute abnormality nor are they tender. She is tenderness at the right distal radius but there is no deformity. She will not do full range of motion due to pain. Radial pulses intact.. There is no significant swelling. Skin is intact. Right hand there is no gross deformity if you palpate the index finger dorsal metacarpal. She has pain in the wrist. Hand is neurovascular intact with cap refill touch sensation. Test Results: Right hand x-ray shows no acute abnormality of the wrist or the hand. No fracture or dislocation. By myself. Emergency Department Course and Treatment: Patient treated Motrin for pain Treatment Plan: P exam patient is doing well at 1405. Disposition: Discharge Impression: Tripped over dog and fell Acute right wrist This note was generated with MobileMD dictation software. It may contain incorrect words, spelling, and punctuation that were not noted in review of the chart prior to signing ED Disposition - Plan for ED Patient: Chief Complaint: Fall Referrals: Javi Garcia MD [Primary Care Provider] - What to do if you have Problems For any increased pain, shortness of breath, bleeding, nausea or vomiting, chest pain, or any unexpected problems, contact your Primary Care Provider. Call [facility] ([phone]) or report to the closest Emergency Room. Call 911 if necessary. 05/30/17 1650 <Electronically signed by Javi Steele MD> Date Javi Steele MD Cosigner Signature (If Indicated): Date CC: Javi Garcia MD DISCHARGE INSTRUCTION Observed: 05/30/2017 Status: F Source: [place] 4:50 PM [facility] REPOSITORY [facility] Medical Records Department [address] [place] [address] Discharge Instruction 05/30/17 1405 MR#: [id number] Acct: [id number] Name: WILLI LORENZOSARAH ELIZONDO Rep #: [id number] : 1995 21 From: Javi Steele MD PCP: Javi Garcia MD Status: DEP ER ED Disposition - Plan for ED Patient: Disposition: Home or Assisted Living Chief Complaint: Fall Instructions: ED Sprain Wrist Referrals: Javi Garcia MD [Primary Care Provider] - 1 Week if not improving Additional Instructions: Ice and elevate the right wrist. Motrin for pain and swelling and Tylenol for pain. Should progressively get better if not improving have it reevaluated. Your x-rays today were normal. No fracture seen. What to do if you have Problems For any increased pain, shortness of breath, bleeding, nausea or vomiting, chest pain, or any unexpected problems, contact your Primary Care Provider. Call [facility] ([phone]) or report to the closest Emergency Room. Call 911 if necessary. 05/30/17 1650 <Electronically signed by Javi Steele MD> Date Javi Steele MD Cosigner Signature (If Indicated): Date CC: Javi Garcia MD HAND MIN 3 VIEWS Observed: 05/30/2017 Status: F Source: [place] 1:27 PM [facility] REPOSITORY [facility] Imaging Services [address] [place] [address] Hand Min 3 Views MR#: [id number] Acct: [id number] Name: REJI LORENZO Rep #: [id number] : 1995 F 21 From: Wilberto Sylvester MD PCP: Javi Garcia MD Status: REG ER Study: Hand Min 3 Views Date of Exam: 05/30/17 Exam# [id number] Ordering Dr: Javi Steele MD STUDY: X-RAY - RIGHT HAND REASON FOR EXAM: Female, 21 years old. Pain following injury. TECHNIQUE: 3 view(s) of the hand. COMPARISON: None. FINDINGS: Normal radiocarpal articulation. Normal distal radioulnar joint. Normal visualized carpal bones. Normal carpal articulations Normal carpometacarpal articulation of the thumb. Normal second through fifth carpometacarpal joints. Normal metacarpi. Normal metacarpophalangeal joint of the thumb. Normal interphalangeal joint of the thumb. Normal proximal and distal phalanges of the thumb. Normal metacarpophalangeal joints of the second through fifth fingers. Normal proximal and distal interphalangeal joints of the second through fifth fingers. Normal phalanges of the second through fifth fingers. The soft tissue structures are unremarkable. RAD/Hand Min 3 Views IMPRESSION: Normal x-ray examination of the hand. 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 ALLERGIES ALLERGIES DATE TYPE / NAME / CODE REACTION SEVERITY SOURCE CODE 04/09/2018 Drug diphenhydramine Hives Unknown [place] Allergy/41 HCl/[id number](RXNORM [facility]98[facility]) Repository 04/09/2018 Drug Penicillins/[id number] Hives Unknown [place] Allergy/41 6(RXNORM) Community [id number]([facility]) Repository 05/28/2014 DRUG DIPHENHYDRAMINE HCL OTHER: SEE C [facility] INGREDI/[address] [place] [id number](SN Repository OMED CT) 06/19/2005 Drug PENICILLINS RASH [facility] Class/4[address] [place] [address](SNOM Repository ED CT) ENCOUNTERS ENCOUNTERS ADMIT/DISCHARGE ACCOUNT ADMITTING ENCOUNTER LOCATION SOURCE NUMBER CLASS 04/20/2018 [id number] Neil Ambulatory [place] Luis Purvi [facility] ing:WP Repository 04/16/2018/04/19/20 [id number] [facility] Inpatient [place] Luis 18 Encounter [facility] ing:WPRoom: Repository AO972Aed: 1 04/11/2018/04/12/20 [id number] Ambulatory [address] [place] Repository 04/10/2018/04/11/20 [id number] Ambulatory [address] [place] Repository 04/09/2018/04/09/20 [id number] [place] ing:WPOUTRoom Repository : WP018 04/04/2018/04/05/20 [id number] Ambulatory [address] [place] Repository 04/03/2018/04/04/20 [id number] Ambulatory [address] [place] Repository 04/02/2018/04/02/20 [id number] Ambulatory [address] ing:WPOUTRoom Repository : WP012 03/26/2018/03/27/20 [id number] Ambulatory [address] [place] Repository 03/25/2018/03/26/20 [id number] Ambulatory [address] [place] Repository 03/25/2018/03/26/20 [id number] Ambulatory [address] [place] Repository 03/22/2018/03/25/20 [id number] Ambulatory [address] [place] Repository 03/20/2018/03/21/20 [id number] Ambulatory [address] [place] Repository 03/18/2018/03/20/20 [id number] Ambulatory [address] [place] Repository 03/14/2018/03/15/20 [id number] Ambulatory [address] [place] Repository 03/14/2018/03/14/20 [id number] Ambulatory [place] 18 [facility] ing:WPOUTRoom Repository : WP013 03/12/2018/03/13/20 [id number] Ambulatory [place] [facility] [place] Repository 03/11/2018/03/12/20 [id number] Ambulatory [place] [facility] [place] Repository 03/05/2018/03/05/20 [id number] Ambulatory [place] [facility] [place] Repository 03/05/2018/03/07/20 [id number] Ambulatory [place] [facility] [place] Repository 02/18/2018/02/20/20 [id number] Ambulatory [place] 18 [facility] [place] Repository 02/05/2018/02/08/20 [id number] Ambulatory [place] [facility] [place] Repository 02/05/2018/02/08/20 [id number] Ambulatory [place] 18 [facility] [place] Repository 01/21/2018/01/22/20 [id number] Ambulatory [place] 18 [facility] [place] Repository 01/21/2018/01/23/20 [id number] Ambulatory [place] 18 [facility] [place] Repository 12/27/[id number] Repository 12/09/2017/12/10/19 [id number] Emergency [place] [address] [place] [address] ing:ED Repository 11/20/2017/11/22/19 [id number] Ambulatory [place] 18 [facility] [place] Repository 11/20/2017/11/27/19 [id number] Ambulatory [address] [place] Repository 11/16/2017/11/20/19 [id number] Ambulatory [place] 18 [facility] [place] Repository 10/25/2017/10/27/19 [id number] Ambulatory [place] 18 [facility] [place] Repository 09/23/2017/09/24/19 [id number] Emergency [place] 18 [facility] ing:ED Repository 09/19/2017/09/22/19 [id number] Ambulatory [place] 18 [facility] [place] Repository 09/18/2017/09/19/19 [id number] Emergency [place] 18 [facility] ing:ED Repository 09/13/2017/09/18/19 [id number] Ambulatory [place] 18 [facility] [place] Repository 08/30/2017/09/01/19 [id number] Ambulatory [address] Repository 08/30/2017/08/31/19 [id number] Ambulatory [address] Repository 08/30/2017/09/04/19 [id number] Ambulatory [address] Repository 08/21/2017/08/30/19 [id number] Ambulatory [address] Repository 05/30/2017/05/30/19 [id number] Emergency [place] Luis[address] ing:ED Repository PAYERS PAYERS ENCOUNTER GUARANTOR PAYER SUBSCRIBER SOURCE 04/20/2018 REJI Lion Primary REJI [place] [id number] OLD Insurance:CARESOURCEP SMITHDOB: [facility] lionel DAWSON Number: [id number] [address]Sob: [id number] Repository Date:2018-04-01P O () [address]ATTN: [place] [address]CE: 04/20/2018 Secondary NOT GIVENUNK [place] Insurance:SELF PAY [facility] Number: Effective Repository Date:2018-04-01 04/16/2018 REJI J Primary REJI [place] [id number] Insurance:CARESOURCEP SMITHDOB: [facility] Number: [id number] [id number] Repository [address]Pxk: [phone]) Date:2018-04-10P O [phone] (HP) [address]ATTN: [place] [address]TS: 04/16/2018 Secondary NOT GIVENUNK [place] Insurance:SELF PAY [facility] Number: Effective Repository Date:2018-04-10 04/09/2018 REJI J Primary REJI [place] [id number] OLD Insurance:CARESOURCEP [facility] Number: [id number] Santa Fe Medical Center [address]Gla: [id number] Repository Date:2018-04-09P O (HP) [address]ATTN: [place] [address]FR: 04/09/2018 Secondary NOT GIVENUNK [place] Insurance:SELF PAY [facility] Number: Effective Repository Date:2018-04-09 04/02/2018 REJI Lion Primary REJI [place] [id number] OLD Insurance:CARESOURCEP SMITHDOB: [facility] lionel DELAROSA Number: [id number] Santa Fe Medical Center [address]Qrs: [id number] Repository Date:2018-04-02P O () [address]ATTN: [place] [address]MY: 04/02/2018 Secondary NOT GIVENUNK [place] Insurance:SELF PAY [facility] Number: Effective Repository Date:2018-04-02 03/14/2018 REJI Lion Primary REJI Lion Luis [id number] OLD Insurance:CARESOURCEP [facility]DOB[facility] Number: [id number] Santa Fe Medical Center [address]Yku: [id number] Repository Date:2018-03-14P O () [address]ATTN: [place] [address]QC: 03/14/2018 Secondary NOT GIVENUNK [place] Insurance:SELF PAY [facility] Number: Effective Repository Date:2018-03-14 12/27/2017 [facility] Christian [facility] Insurance:CaresourceP SmithDOB: [facility] Number: [id number] Repository Old Julio C [id number] [facility] [place] Date:Plan [place], [place] [address]Xcu: (122) Name:[facility] [address] [address]Rnj: (XA) [phone], [place] [phone] (FB) [phone]: 12/09/2017 REJI Lion Primary REJI [place] [id number] OLD Insurance:CARESOURCEP SMITHDOB: Community JULIO C EUNICE, olicy Number: [id number] Santa Fe Medical Center [address]Rye: [id number] Repository Date:2017-12-09P O (HP) [address]ATTN: [place] [address]IQ: 12/09/2017 Secondary NOT GIVENUNK [place] Insurance:SELF PAY [facility] Number: Effective Repository Date:2017-12-09 09/23/2017 REJI Lion Primary REJI Lion [place] [id number] OLD Insurance:CARESOURCEP SMITHDOB: [facility] lionel DELAROSA Number: [id number] Santa Fe Medical Center [address]Vta: [id number] Repository Date:2017-09-23P O (HP) [address]ATTN: [place] [address]NV: 09/23/2017 Secondary NOT GIVENUNK [place] Insurance:SELF PAY [facility] Number: Effective Repository Date:2017-09-23 09/18/2017 REJI ELIZONDO Primary REJI ELIZONDO [place] [id number] OLD Insurance:CARESOURCEP JESSICADOB: [facility] lionel DELAROSA Number: [id number] Santa Fe Medical Center [address]Rjl: [id number] Repository Date:2017-09-18P O (HP) [address]ATTN: [place] [address]OK: 09/18/2017 Secondary NOT GIVENUNK [place] Insurance:SELF PAY [facility] Number: Effective Repository Date:2017-09-18 05/30/2017 Reji Elizondo Primary [place]igi W SmithDOB: [place] [id number] OLD Insurance:MEDICAL [id number] Niagara Hospital, [facility] DivisionCH[facility] [address]Kwe: Number: Repository [id number] (HP) Date:[id number] [address]XD: 05/30/2017 Secondary NOT GIVENUNK [place] Insurance:SELF PAY [facility] Number: Effective Repository Date:2017-05-30
== END 2018-04-02 07:00 | disposition home or self-care (01) ==
LOC: WPOUT 04:27 → WP 04:28
PROVIDERS: Advanced Practice Midwife; Family Provider Family Medicine; PCP Family Medicine; Referring Provider Obstetrics & Gynecology; Visit Provider Obstetrics & Gynecology
DX: O32.1XX0 Maternal care for breech presentation, not applicable or unspecified (principal); O47.1 False labor at or after 37 completed weeks of gestation; O99.89 Other specified diseases and conditions complicating pregnancy, childbirth and the puerperium; E86.0 Dehydration; O99.323 Drug use complicating pregnancy, third trimester; F15.90 Other stimulant use, unspecified, uncomplicated; Z3A.37 37 weeks gestation of pregnancy
CPT/HCPCS: 96360; 96361; 59025; 59050; 76815; 80307; 81001; 84112; 99218; J7120; G0378

== ENCOUNTER 2018-04-09 11:35 | Outpatient (CLI) | payer MEDICAID, SELFPAY ==
[2018-04-09 11:57] VITALS: BMI 25.6
--- NOTE | 2018-04-09 12:32 | OB.TRI.NOTE ---
- Problem List (1) Vaginal discharge during Status: Acute History of Present Illness Date of Service: 04/09/18 Was patient seen by the physician?: Yes Reason For Visit: R/O RUPTURE Date of Service: 04/09/18 Final CHIN: 04/20/18 Final CHIN Source: US <20 weeks Gestational age: 38 Weeks and 3 Days History of Present Illness: Patient reports 4 days ago she noticed leaking of fluid after urination. She has had occasional leaking of fluid since then, but nothing consistent. No large gush of fluid. +Back pain. No regular ctx's or VB. +DFM. Allergies diphenhydramine HCl [From Benadryl] Allergy (Verified 03/14/18 13:50) Hives Penicillins Allergy (Verified 03/14/18 13:50) Hives - Pertinent Past Medical History Medical History: Past Medical History (Last Updated 04/09/18 @ 12:35 by Lorrie Vega DO) Anemia Depression affecting Herpes History of drug abuse Positive urine drug screen complicated by subutex maintenance, antepartum Tobacco abuse Review of Systems Gynecological: Reports: - - No regular ctx, VB. ?LOF. DFM Physical Exam General: - - Comfortable appearing HEENT: Atraumatic Lungs: - - No increased resp effort Abdomen: Soft, Non Tender, Gravid Extremities:: No edema Neurological: Neuro grossly intact Estimated gestational size: Appropriate for gestational size NST - FHR Rate Baby A Baseline: 130 Variability:: Moderate Accelerations:: 15 x 15 Decelerations:: None NST Reactive:: Yes Uterine Activity:: Very irregular/scant ctx's Impression/Plan 38 wks gestation presenting for rule out rupture and DFM - DFM: NST reactive and reassuring - ?LOF: Amnisure sent - If not ruptured, okay to d/c home. She has follow up in office tomorrow, and is to keep that appointment
[2018-04-09 12:51] LABS: ROM Internal Control Test YES-OK TO RESULT pt. (Internal QC); ROM Patient Test Negative (Negative)
== END 2018-04-09 13:05 | disposition home or self-care (01) ==
LOC: WPOUT 11:38 → WP 11:38
PROVIDERS: Family Provider Family Medicine; PCP Family Medicine; Referring Provider Obstetrics & Gynecology; Visit Provider Obstetrics & Gynecology
DX: Z03.71 Encounter for suspected problem with amniotic cavity and membrane ruled out (principal); O99.333 Smoking (tobacco) complicating pregnancy, third trimester; F17.200 Nicotine dependence, unspecified, uncomplicated; Z3A.38 38 weeks gestation of pregnancy
CPT/HCPCS: 59025; 59050; 84112; 99218; G0378

== ENCOUNTER 2018-04-16 10:00 | Inpatient (IN) | payer MEDICAID, SELFPAY ==
[2018-04-11 18:56] VITALS: BMI 25.9
[2018-04-16] VITALS (16 sets, daily range): BP systolic 86–114; BP diastolic 42–61; PULSE 50–77; RESP 12–17; TEMP 36.3–37.1; O2SAT 96–100; BMI 25.4
[2018-04-16] MEDS: Lactated Ringers 1,000 ML 999 ML IV (10:30)
[2018-04-16 10:49] LABS: Absolute Lymphocyte Count 2.08 X10^3/ul (0.83-4.51); Absolute Neutrophil Count 8.4 X10^3/uL (2.0-7.7); Basophil# 0.04 X10^3/uL; Basophil% 0.3 % (0-1); Eosinophil# 0.16 X10^3/uL; Eosinophils% 1.4 % (0-5); Hematocrit 35.7 % (37-47); Hemoglobin 11.7 g/dl (12.0-15.0); Lymphocyte # 2.08 X10^3/ul (4.0); Lymphocyte % 18.2 % (19-41); Mean Corp Hgb Conc 32.8 g/gl (32-36); Mean Corpuscular Hgb 30.6 pg (27.0-32.0); Mean Corpuscular Volume 93.5 fL (81-99); Mean Platelet Vol. 8.7 fl (6.2-12.0); Monocyte# 0.75 X10^3/uL; Monocyte% 6.6 % (0-10); Neutrophil # 8.35 X10^3/uL (2.7-7.7); Neutrophil % 73.1 % (47-70); POSITIVE COUNT NO; POSITIVE DIFFERENTIAL NO; POSITIVE MORPHOLOGY NO; Platelet Count 351 K/mm3 (150-450); RBC Distribution Width CV 15.2 % (11.6-14.6); RBC Distribution Width SD 51.4 fl (35.1-43.9); Red Blood Count 3.82 M/mm3 (4.2-5.4); White Blood Count 11.4 K/mm3 (4.4-11.0)
[2018-04-16 11:20] LABS: Amphetamine Urine VISTA NEGATIVE (<1000 ng/mL); Barbiturate Urine VISTA NEGATIVE (< 200 ng/mL); Benzodiazepine Urine VISTA NEGATIVE (< 200 ng/mL); Cocaine Urine VISTA NEGATIVE (< 300 ng/mL); Ecstacy Urine VISTA NEGATIVE (< 500 ng/mL); Methadone Urine VISTA NEGATIVE (< 300 ng/mL); PCP Urine VISTA NEGATIVE (< 25 ng/mL); THC Urine VISTA NEGATIVE (< 50 ng/mL); Vista UDS pH Range 6
[2018-04-16] MEDS: Lactated Ringers 1,000 ML 150 ML IV (11:33)
[2018-04-16] MEDS: Sodium Citrate/Citric Acid 30 ML UDC PO (12:03)
[2018-04-16] MEDS: Cefazolin 2 GM in 0.9% Normal Saline 100 ML IV (12:03)
--- NOTE | 2018-04-16 12:05 | PCM.HP.OB ---
- Problem List (1) Breech presentation of fetus Status: Resolved Qualifiers: Fetus number: single or unspecified fetus History Date of Admission: 04/16/18 Final CHIN: 04/20/18 Final CHIN Source: US <20 weeks Gestational age: 39 Weeks and 3 Days History of this : This is a 22 year-old, G [], P [], at 39 weeks gestational age. Medical History: Medical History (Last Updated 04/09/18 @ 12:35 by Lorrie Vega DO) Anemia D64.9 Depression affecting O99.340, F32.9 Herpes B00.9 History of drug abuse Z87.898 Positive urine drug screen R82.5 complicated by subutex maintenance, antepartum O99.320, F11.20 Tobacco abuse Z72.0 Allergies diphenhydramine HCl [From Benadryl] Allergy (Verified 04/09/18 12:35) Hives Penicillins Allergy (Verified 04/09/18 12:35) Hives Home Medications: Home Medications Buprenorphine HCl 12 mg SL BID 09/23/17 Docusate Sodium [Colace] 100 mg PO BID 03/14/18 Famotidine [Pepcid] 20 mg PO BID 03/14/18 Acyclovir 400 mg PO TID 04/02/18 Smoking Status: Current every day smoker Substance Use Type: Amphetamines, Cocaine Number of Fetus(es): 1 Heart Tracing: Category 1 History Past Pregnancies: Past Pregnancies Delivery Date Name GA/Weeks Outcome Route Weight Gender Labor Length Anesthesia Delivery Location Provider FOB AB Term Labs: GBS neg, Syphilis NR, RI, Hep B neg, HIV NR, Rh pos, 1 hr GTT 108, GC/CT neg, Hep C was not checked with NOB labs so ordered on admission and pend Expected Delivery Method: Primary Section Review of Systems Gynecological: Reports: - - No ctx, vb, lof. Good FM Physical Exam General: Alert, No apparent distress HEENT: Atraumatic Lungs: - - No increased resp effort Abdomen: Soft, Non Tender, Gravid Extremities:: No edema Neurological: Neuro grossly intact Estimated gestational size: Appropriate for gestational size Presentation: Breech Assessment/Plan All Active Problems (Last Updated 04/09/18 @ 12:35 by Lorrie Vega DO) related abdominal pain of lower quadrant, antepartum (Acute) Breech presentation of fetus (Resolved) Vaginal discharge during (Acute) This is a 22 year-old, at 39 wks gestation who presents for scheduled PLTCS for breech presentation. - TAUS confirmed breech on admission - Patient declines version - HepC screen on admission - UDS on admission - Discussed pain control plan with Dr. Robles. Subutex increased to 4mg q 6 hrs JEB. Okay for Dilaudid and Oxycodone prn for pain control while in the hospital. Will not sent patient home with narcotic rx
--- NOTE | 2018-04-16 12:05 | NURSING ---
1155- Dr Vega in room, US preformed to varify position.
[2018-04-16] MEDS: Oxytocin 30 units/NS 500 ml 30 UNITS/500 ML IV.SOLN 167 UNITS IV (12:34)
[2018-04-16] MEDS: Lactated Ringers 1,000 ML 100 ML IV ×2 (13:15→22:12)
--- NOTE | 2018-04-16 13:15 | PCM.OB.CSR ---
- Problem List (1) Breech presentation of fetus Status: Resolved Qualifiers: Fetus number: single or unspecified fetus Delivery Classification: Scheduled Final CHIN: 04/20/18 Gestational age: 39 Weeks and 3 Days Indications for : Breech Description of Procedure: Findings: Female infant in breech presentation. Normal uterus, tubes, and ovaries were noted. Clear fluid. Intact placenta with three-vessel cord. Indications: It is a 22-year-old 011 at 39 weeks gestation who presents for a scheduled section for breech presentation. Her prior delivery was a vaginal delivery. This fetus has had unstable lie in this . A version was discussed and the patient declined a version. Risks, benefits, alternatives of a primary were discussed and patient elected for a primary for breech presentation. Procedure: Spinal anesthesia was administered without difficulty and found to be adequate. The patient was prepped and draped in the usual sterile fashion in the dorsal supine position with a leftward tilt. A Pfannenstiel skin incision was made with a scalpel and carried through to the underlying layer of fascia using the Bovie. The fascia was incised in the midline and extended laterally using Juarez scissors. Lucero clamps were used to elevate the superior aspect of the fascial incision, and the underlying rectus muscles were dissected off bluntly and using Juarez scissors. Attention was then turned to the inferior aspect of the fascial incision which was grasped with Lucero clamps, elevated, and the underlying rectus muscles were dissected off bluntly and using the Juarez scissors. The rectus muscles were dissected in the midline. The peritoneum was identified and entered using Metzenbaum scissors. The peritoneal incision was extended superiorly and inferiorly with good visualization of the bladder. The bladder blade was inserted. The lower uterine segment was incised in a low transverse fashion and extended using with manual traction. Clear fluid was noted. The was subsequently delivered in breech presentation without difficulty. The cord was clamped and cut after 60 second delay. The was handed off to the waiting nursery nurse. The placenta was delivered with manual extraction and noted to be intact with a three-vessel cord. The uterus was explored x1. The uterus was exteriorized and cleared of all clot and debris. The incision was repaired in one layer using Vicryl. Hemostasis was visualized. The fallopian tubes and ovaries were noted to be normal. The uterus was then placed back into the abdomen. Hemostasis was again noted. The peritoneum was reapproximated in the midline using Vicryl. The fascia was closed with 0 Vicryl suture. The subcutaneous layer was closed with Vicryl. The skin was closed in a subcuticular fashion. Sponge, lap, instrument, and needle counts were correct. The patient was stable at completion of the procedure was transferred to the recovery room in stable condition. Amniotic Membrane Rupture Type: Artificial Amniotic Fluid Description: Clear Drain: Colbert to straight drain Cord Entanglement: None Cord Vessel Description: 3 Vessels Esitmated Blood Loss (ml): 800 Infant Gender: Female Delayed cord clamping: Yes Pre-op Antibiotic Given: Ancef 2 grams IV x1 Complications: None - Admit VTE Documentation VTE Mechan Device Prophylaxis: SCD's
[2018-04-16] MEDS: BUPRENORPHINE HCL 8 MG TAB.SUBL 4 MG SL ×2 (14:34→20:59)
[2018-04-16] MEDS: Acetaminophen 500 MG Tablet 1000 MG PO (14:36)
--- NOTE | 2018-04-16 16:17 | CASEMGMT ---
Social Work Labor and Delivery Unit Referral: maternal history of substance use. Summary: Patient/mother of baby (MOB) just delivered today so planned on seeing for assessment tomorrow. RN Rach Bahena reports MOB is asking to speak to this advertising writer today however, as MOB with questions about paternity testing. Met with MOB and MOB's grandmother in room today. Introduced to self and reason for visit. MOB verified that is interested in completing paternity testing as MOB's is questioning paternity. MOB reports belief that is the biological father, but if not there is only one other option. Educated MOB of need to call child support agency in [place], and this agency has been known to come to the hospital to get DNA testing started. MOB worried about timeframes of when the testing can be done, which led to discussion as to how long MOB and baby will be in the hospital. MOB initiated conversation about Subutex in front of family member present. Educated MOB that typically for Subutex monitoring of baby lasts for 5-7 days. Educated MOB that if baby's withdrawal is minimal in that time frame, typically baby is discharged versus if withdrawal scores are high enough sometimes babies are transferred to the [facility] for further treatment and initiate of morphine. MOB reports to know this is all a possibility but just wasn't' sure how things would go. Answered MOB's questions. Let MOB know also that mental health social worker will be back tomorrow for assessment, that want to give MOB some time after surgery before going into many questions. Assessment: MOB seeming tired after surgery, reports to be having a little bit of pain and also to be hungry. MOB pleasant, cooperative and seeming interested to talk to mental health social worker, as evidenced by MOB talking about more than what mental health social worker came to room to discuss. Plan: See MOB on 04-17-18 for assessment. -ZAY Long, DUPLICATING MACHINE MECHANIC
[2018-04-16] MEDS: HYDROmorphone 1 MG/ML Syringe IV ×3 (16:34→23:18)
[2018-04-16] MEDS: Ketorolac 30 MG/ML Syringe IV (18:22)
[2018-04-16] MEDS: Docusate Sodium 100 MG Capsule PO (22:11)
[2018-04-17] MEDS: Ketorolac 30 MG/ML Syringe IV ×4 (00:16→18:12)
[2018-04-17 00:20] VITALS: BP 101/54; PULSE 69; RESP 16; TEMP 36.6; O2SAT 97
[2018-04-17] MEDS: BUPRENORPHINE HCL 8 MG TAB.SUBL 4 MG SL ×4 (02:34→20:26)
[2018-04-17] MEDS: HYDROmorphone 1 MG/ML Syringe IV (02:57)
[2018-04-17 03:46] VITALS: BP 101/52; PULSE 69; RESP 14; TEMP 36.6; O2SAT 97
[2018-04-17] MEDS: Acetaminophen 500 MG Tablet 1000 MG PO ×2 (05:20→14:46)
[2018-04-17 06:46] LABS: Hematocrit 26.9 % (37-47); Hemoglobin 8.7 g/dl (12.0-15.0); Mean Corp Hgb Conc 32.3 g/gl (32-36); Mean Corpuscular Hgb 30.2 pg (27.0-32.0); Mean Corpuscular Volume 93.4 fL (81-99); Mean Platelet Vol. 8.3 fl (6.2-12.0); Platelet Count 253 K/mm3 (150-450); RBC Distribution Width CV 15.2 % (11.6-14.6); RBC Distribution Width SD 52.2 fl (35.1-43.9); Red Blood Count 2.88 M/mm3 (4.2-5.4); White Blood Count 10.6 K/mm3 (4.4-11.0)
[2018-04-17 06:49] LABS: Scan Indicated on CBC? Y/N NO
--- NOTE | 2018-04-17 07:59 | PCM.PN.OB ---
Subjective: Patient doing well. She reports pain not well controlled Dilaudid. Has not been up ambulating yet. Campbell is in place. No flatus. Tolerating a regular diet without nausea or vomiting. Denies lightheadedness, dizziness, CP, SOB, leg pain. - Physical Exam General: Alert, No apparent distress HEENT: Atraumatic Lungs: - - No increased resp effort Abdomen: Soft, - - ATTP, FF@U-1, dressing in place and c/d/i Extremities: No edema, No Calf Tenderness Skin: No rashes Neurological: Neuro grossly intact Psych/Mental Status: Normal Affect, Appropriate Vital Signs Temp Pulse Resp BP Pulse Ox 97.8 F 69 14 101/52 L 97 04/17/18 03:46 04/17/18 03:46 04/17/18 03:46 04/17/18 03:46 04/17/18 03:46 Oxygen Delivery Method Room Air Weight: 139 lb Body Mass Index (BMI) 25.4 Intake and Output for Last 24 Hours 04/15/18 04/16/18 04/17/18 23:59 23:59 23:59 Intake Total 3013 / 3013 1151 / 1151 Output Total 1200 / 1200 1550 / 1550 Balance 1813 / 1813 -399 / -399 Laboratory Tests Past 24 Hrs 04/16/18 04/16/18 04/16/18 10:30 10:30 10:30 WBC 11.4 H RBC 3.82 L Hgb 11.7 L Hct 35.7 L MCV 93.5 MCH 30.6 MCHC 32.8 RDW 15.2 H RDW Differential 51.4 H Plt Count 351 MPV 8.7 Immature Gran % (Auto) 0.400 Neut % (Auto) 73.1 H Lymph % (Auto) 18.2 L [place] % (Auto) 6.6 Eos % (Auto) 1.4 Baso % (Auto) 0.3 Absolute Neuts (auto) 8.4 H Absolute Lymphs (auto) 2.08 Total Counted Not Reportable Urine Opiates Screen NEGATIVE Urine Methadone Screen NEGATIVE Ur Barbiturates Screen NEGATIVE Ur Phencyclidine Scrn NEGATIVE Ur Amphetamines Screen NEGATIVE U Methamphetamin-MDMA NEGATIVE U Benzodiazepines Scrn NEGATIVE Urine Cocaine Screen NEGATIVE U Cannabinoids Screen NEGATIVE Ur Drug Screen Comment Hepatitis C Ab (EIA) Blood Type A POSITIVE Antibody Screen NEGATIVE 04/16/18 04/17/18 10:30 06:30 WBC 10.6 RBC 2.88 L Hgb 8.7 L Hct 26.9 L MCV 93.4 MCH 30.2 MCHC 32.3 RDW 15.2 H RDW Differential 52.2 H Plt Count 253 MPV 8.3 Immature Gran % (Auto) Neut % (Auto) Lymph % (Auto) [place] % (Auto) Eos % (Auto) Baso % (Auto) Absolute Neuts (auto) Absolute Lymphs (auto) Total Counted Urine Opiates Screen Urine Methadone Screen Ur Barbiturates Screen Ur Phencyclidine Scrn Ur Amphetamines Screen U Methamphetamin-MDMA U Benzodiazepines Scrn Urine Cocaine Screen U Cannabinoids Screen Ur Drug Screen Comment Hepatitis C Ab (EIA) Pending Blood Type Antibody Screen Medical Necessity - Tobacco Use Smoking Status: Current every day smoker Assessment/Plan All Active Problems (Last Updated 04/09/18 @ 12:35 by Lorrie Vega DO) related abdominal pain of lower quadrant, antepartum (Acute) Breech presentation of fetus (Resolved) Vaginal discharge during (Acute) POD#1 s/p PLTCS for breech presentation - Doing well. AF, VSS - D/c IV Dilaudid and transition to Oxycodone for better pain control. Discussed with patient again that she will not go home with pain rx after discussion with Dr. Robles given her hx. Sent rx for Motrin 800mg - Remove campbell - Encouraged ambulation today - Bottle feeding - PPBC: She is still undecided. Discussed all options and reviewed importance of having a control plan. She is considering her options - HepC Ab pending - Dispo: Routine PO care
[2018-04-17] MEDS: Lactated Ringers 1,000 ML 100 ML IV (08:19)
[2018-04-17] MEDS: oxyCODONE 5 MG Tablet PO ×4 (08:55→22:12)
[2018-04-17 08:59] VITALS: BP 102/48; PULSE 66; RESP 16; TEMP 36.6; O2SAT 97
[2018-04-17] MEDS: Docusate Sodium 100 MG Capsule PO ×2 (10:00→22:11)
[2018-04-17 12:30] VITALS: BP 107/50; PULSE 62; RESP 16; TEMP 36.6
[2018-04-17] MEDS: 0.9% Saline Lock 10 ML Syringe IV ×2 (12:50→18:12)
[2018-04-17 13:20] LABS: Hep C Antibodies <0.1 s/co ratio (0.0-0.9)
[2018-04-17 16:20] VITALS: BP 99/50; PULSE 58; RESP 16; TEMP 36.6
--- NOTE | 2018-04-17 17:35 | CASEMGMT ---
Social Work Assessment Labor and Delivery Unit Date of Referral: 04/16/2018 Time of Referral: 1051; 1014 Referred By: Dr. Vega; Dr. Lau Date of Intervention: 04/17/2018 Time of Intervention: 1545 Reason for Referral: maternal history of substance abuse; baby on RASHEEDA monitoring per protocol History obtained from: medical record and patient/mother of baby (MOB) Household composition: MOB reports has just completed 75 day treatment at [facility]. MOB reports at time of discharge from the hospital will be taking baby to MOB?s grandmother?s home. MOB reports home situation with grandmother is safe and adequate. Patient's parent/guardian status: MOB Amina Lorenzo is 22 years old and father of baby (FOB) Luigi Lorenzo, for 3 or 4 years now. MOB reports FOB is questioning paternity. MOB reports belief that Luigi is the father, however there is a small possibility of one other person being the father. MOB reports Luigi is the father to MOB?s older child as well. MOB reports uncertainty as to what the status of marriage is, right now each just taking time to focus on own issues. MOB reports that Fahad spends time with both MOB and with Luigi, that Lucíade is with MOB when Luigi is not working. Minor Children: Fahad Lorenzo, born 02.16.2015 and baby girl Joseph Lorenzo, born 04.16.2018. Medical History: CAMMIE is G3, P1 to 2 after delivering Joseph. Chart indicates that CAMMIE has a history of a 22-week loss. MOB started care during this at 8 weeks gestation. MOB delivered Joseph at 39 weeks via caesarian section. Baby weighed 6 pounds 3 ounces, Apgars 9 and 9. Educational Status: MOB reports to have a GED. Reports ability to read, write, and to understand what is read. Financial Status: MOB is not currently working. MOB reports family has been helping. FOB does work. Supplies: MOB reports to have a bed for baby, car seat, wipes, diapers, clothes and bottles. MOB reports need to get formula but plans to go to [facility]. Childcare/Caregiver(s): MOB plans to be primary caregiver. 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 Programs/Agencies Involved: MOB reports connection with multiple agencies. [facility]FS for food and medical. Connected with WIC [place] [facility] [place]OB has been at [facility] through [facility] and reports just finished 75 days of residential treatment. MOB reports to have a counselor from same agency, Maria R Kohli. MOB reports seeing Dr. Robles for Subutex management. Children Services/Legal Issues: MOB denies legal issues. Reports JUAN is on probation. MOB reports to have an active voluntary care with children services. Deja Greene with [facility] is reported to be the ongoing worker. Behavioral Health Issues: Mental Health History: MOB reports diagnosis of depression at the age of 13, history of medication but has not been on medication in years. MOB denies to this engineering writer any history of depression. MOB denies history of suicidal ideation, plans, intent, attempts. MOB denies any thoughts of harm to others. MOB endorses more anxiety than depression. MOB report has tried medication in the past but does not care for meds and wants to be off meds. MOB reports that just tries to keep mind off things. Note, in care record MOB endorsed a history of depression as well as having some depression symptoms during this , which is different than reports to this engineering writer. Substance Use History: MOB endorses history of substance abuse and first episode of treatment was at age 16 at [facility]. MOB reports during this using methamphetamines and then was prescribed Subutex regularly; reports used cocaine intermittently. MOB denies use of any narcotic pills, opiates, heroin, marijuana, alcohol, other synthetics or herbs during this . MOB reports history of heroin use years ago and therefore went back on Subutex when found out was , just to be safe that did not relapse on opiates during . MOB denies any history of IV drug use. MOB reports last use of marijuana as a teen. MOB endorses a pack a day of cigarettes during . Note, per the care record and different than what MOB reported to this engineering writer is that MOB used marijuana at the beginning of the . Noted that at a visit in January MOB endorsed using heroin a ?few months ago.? Noted that at beginning of the MOB was going to see Dr. driver in [place] for Subutex, then to a obrien clinic in [place], and then connected with Dr. Robles at [facility]. Family History: MOB reports a brother last year drinking and driving. MOB reports another brother with ?full blown? addiction. Chart indicates MOB?s parents with substance use issues. Maternal Drug Screens: MOB with positive drug screen for marijuana on 09-14-2017. Retested on 02-18-18, 03-14-18, 04-02-18, and 04-16-18 all negative. Infant Drug Screens: urine is negative, Subutex screen is positive. Meconium is pending. RASHEEDA scoring being done on baby, so far scores 0-2. Family/Social Stressors: Ups and downs with during this . MOB reports FOB was to come to the delivery but didn?t show up. FOB is questioning paternity. MOB dealing with active addiction during , entered residential treatment. FOB also reportedly dealing with own recovery from addiction. Support Systems: MOB reports her grandmother is a strong support (and this person has been MOB?s support person while at the hospital). MOB reports test case developer at [facility], Marga Rand is a support. MOB has a sponsor through . Counselor through [facility]. Depression/Shaken Baby/Safe Sleeping : Educated MOB to depression and anxiety, risk for such. MOB able to give appropriate responses for shaken baby prevention. MOB reports to understand about safe sleeping. ASSESSMENT: MOB reports child support was to the floor today and started DNA process. MOB reports to feel good about the baby, to have a connection and that has been waiting a long time for the baby to come. MOB smiled at baby when making this statement. Baby was fussy during social work visit. MOB kept pacifier in baby?s mouth and made comment that ?don?t know what you want? to the baby. MOB was gentle when talking to baby. MOB cooperative with social work visit but did ask what the purpose of assessment is. Educated MOB and let MOB know that if MOB does not want to answer anything this is MOB?s choice, also educated MOB that this engineering writer is a mandated reported and that will have to call children services regarding exposure to drugs in utero. MOB reports that already working with children services, that all is good, and that connected to services in the area already. MOB cooperative but slightly irritable at times. MOB also apologetic for being slight irritably. MOB had head down most of time, intermittent eye contact, holding bridge of nose and forehead stating that has a headache since switching from Dilaudid to Oxy for pain management. Inquired how staff can support MOB the while hospitalized. MOB reports that people can give MOB encouragement and validation for efforts of going into treatment and working on getting sober. This engineering writer did acknowledge MOB?s steps to go into treatment as a positive one and commended MOB for doing this. Let MOB know that this engineering writer would be back at some point to check on MOB, as well as if baby must go to [facility] for any reason this engineering writer would use today?s assessment for the [facility] assessment, this way does not have to go through questioning a second time (this engineering writer is the social services counselor for the [facility] as well). Did see MOB?s grandmother in the hallway and grandmother confirms MOB and baby will be staying with the grandmother at discharge. Grandmother presents as supportive of MOB. Of concern by this engineering writer is MOB?s inconsistent reports to this engineering writer regarding history of usage in and what disclosed during care visits regarding use; reports do not match. PLAN: social work to follow as baby to be hospitalized for 5-7 days for RASHEEDA monitoring. Will makes a referral to children services for substance exposed infant. Will provide MOB some depression and anxiety information for home going. Remain available for support as needed. -DARRYL Long, DIRECTOR OF FOOD AND BEVERAGE SERVICES
--- NOTE | 2018-04-17 18:00 | NURSING ---
Patient requesting to have IV taken out and discontinue IV toradol early so she can go outside to smoke. IV d/c'd.
[2018-04-17 20:33] VITALS: BP 107/60; PULSE 84; RESP 20; TEMP 36.7; O2SAT 97
[2018-04-18] MEDS: Ibuprofen 600 MG Tablet PO ×4 (00:11→20:37)
[2018-04-18] MEDS: BUPRENORPHINE HCL 8 MG TAB.SUBL 4 MG SL ×4 (02:13→20:38)
[2018-04-18] MEDS: oxyCODONE 5 MG Tablet PO ×5 (02:14→21:23)
[2018-04-18 02:16] VITALS: BP 107/53; PULSE 73; RESP 16; TEMP 36.9; O2SAT 96
[2018-04-18] MEDS: Acetaminophen 500 MG Tablet 1000 MG PO (07:05)
--- NOTE | 2018-04-18 08:23 | PCM.PN.OB ---
Subjective: Patient is feeling a little better but still has some pain. - Physical Exam General: Alert, Oriented x3 Abdomen: Soft, Non-Distended - approp tender; ff mid & below umb; incision - bandage c/d/i Extremities: No Calf Tenderness Vital Signs Temp Pulse Resp BP Pulse Ox 98.4 F 73 16 107/53 L 96 04/18/18 02:16 04/18/18 02:16 04/18/18 02:16 04/18/18 02:16 04/18/18 02:16 Oxygen Delivery Method Room Air Weight: 139 lb Body Mass Index (BMI) 25.4 Intake and Output for Last 24 Hours 04/16/18 04/17/18 04/18/18 23:59 23:59 23:59 Intake Total 3013 / 3013 1313 / 1313 Output Total 1200 / 1200 2650 / 2650 Balance 1813 / 1813 -1337 / -1337 Laboratory Tests Past 24 Hrs 04/16/18 10:30 Hepatitis C Ab (EIA) <0.1 Medical Necessity - Tobacco Use Smoking Status: Current every day smoker Assessment/Plan All Active Problems (Last Updated 04/09/18 @ 12:35 by Lorrie Vega DO) related abdominal pain of lower quadrant, antepartum (Acute) Breech presentation of fetus (Resolved) Vaginal discharge during (Acute) POD#2 Routine care
[2018-04-18 08:30] VITALS: BP 100/62; PULSE 70; RESP 18; TEMP 36.8
[2018-04-18] MEDS: Docusate Sodium 100 MG Capsule PO ×2 (11:18→21:22)
[2018-04-18 14:00] VITALS: BP 105/46; PULSE 69; RESP 16; TEMP 36.8
--- NOTE | 2018-04-18 16:20 | CASEMGMT ---
Social Work Labor and Delivery Unit 1000 - Call to [facility] ([facility]), spoke with Jennifer Patterson in the intake department. Referral due to substance exposed . Brief maternal and histories provided. 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 Let Jennifer know if negative drug screens for MOB since February, baby's drug screen results and pending meconium. Jennifer reports will let ongoing worker Deja Greene know of this call and have today's information added to current case. 1540 Met with mother of baby (MOB) and provided packet on depression. Let MOB know that this narrative writer is off tomorrow, but if still here on Sunday will follow back up with MOB. MOB asked about discharge timeframes for self and for baby. This has been reviewed with MOB previously. Reviewed with MOB that MOB may be discharged before baby, that MOB can stay in a courtesy room to care for baby, if MOB follows the rules for courtesy room and no laboring patient?s need a room. Let MOB know that staff do work hard to try to keep a room for mother?s while baby?s have extended stays. Reviewed timeframe for baby to be monitored for 5-7 days, that cannot predict how long as it is really going to be how baby is doing with withdrawal. Educated MOB that baby?s exposed to Subutex do sometimes take a bit longer (5-7 days) to start peaking with withdrawal symptoms. Let MOB know that staff will keep MOB updated as new information is known. 1550 - Called [facility] ongoing worker Deja Greene ([phone], extension [phone]). Introduced to self and reason for call today. Reviewed with Deja that this narrative writer called in a report today, was told that information would be added to current case Deja has, and that this narrative writer was told by MOB that Djea planned to come and see MOB tomorrow. Provided Deja this narrative writer?s contact information and number for the psychiatric social worker supervisor covering for this narrative writer tomorrow, in case Deja needs to update hospital to anything regarding plan for baby. Reviewed Deja this narrative writer?s understanding of plan for MOB to take baby to MOB?s grandmother?s home. Deja reports this is being looked at. Deja plans to review with machining department supervisor and will call this narrative writer back with more of an update. 1610 - Received call back from Deja at [facility]. Case has been reviewed with machining department supervisor. [facility] still looking at options for aftercare of baby. [facility] is requesting that baby not be discharged until Sunday at the earliest, to give more time to observe how baby is doing and for [facility] to firm up a plan for this family. This narrative writer in agreement, as based on MOB?s inconsistent statements regarding past use to this narrative writer and what is reported in the care record, would agree that a weekend discharge is not the best; better to discharge when agencies are open, and a firm plan can be established with [facility]. Conferred with cutting department supervisor on this matter. Plan: Social work to follow and assist as needed though not anticipating any new interventions or needs prior to MOB being ready for discharge. Anticipate MOB to be discharged before baby. MOB has been given depression information as well as community resource lists. MOB reports connection with [facility], S, [facility], [facility], and has a sponsor through . MOB is planning to remain in a courtesy room at [facility] while baby is hospitalized, then go to MOB's grandmother's home with baby. Anticipate baby to remain in hospital through the weekend and this narrative writer will follow up with medical team, and also [facility], regarding how baby is doing and the options for aftercare for this family. -ZAY Long, [employer]
[2018-04-18 20:30] VITALS: BP 124/45; PULSE 81; RESP 16; TEMP 36.8
[2018-04-19] MEDS: Ibuprofen 600 MG Tablet PO ×3 (02:41→16:17)
[2018-04-19] MEDS: oxyCODONE 5 MG Tablet PO ×5 (02:41→23:56)
[2018-04-19] MEDS: BUPRENORPHINE HCL 8 MG TAB.SUBL 4 MG SL ×4 (02:41→20:35)
[2018-04-19 03:05] VITALS: BP 103/52; PULSE 70; RESP 12; TEMP 36.2
[2018-04-19] MEDS: Acetaminophen 500 MG Tablet 1000 MG PO ×3 (03:55→22:26)
--- NOTE | 2018-04-19 07:41 | NURSING ---
baby with staff frequently throughout night for mother to leave unit. mother reports feeling overwhelmed with not sleeping well and being in pain.
--- NOTE | 2018-04-19 07:56 | PCM.PN.OB ---
Subjective: Patient doing okay. Pain controlled, but she states she has the expectation of having no pain. Tolerating reg diet, no N/V. Ambulating and voiding without difficulty. Bottle feeding. Denies lightheadedness, CP, SOB, leg pain. - Physical Exam General: Alert, No apparent distress, - - Comfortable appearing HEENT: Atraumatic Lungs: - - No increased resp effort Abdomen: Soft, Non-Distended, - - ATTP, incision c/d/i Extremities: No edema, No Calf Tenderness Skin: No rashes Neurological: Neuro grossly intact Psych/Mental Status: Normal Affect, Appropriate Vital Signs Temp Pulse Resp BP Pulse Ox 97.2 F L 70 12 103/52 L 96 04/19/18 03:05 04/19/18 03:05 04/19/18 03:05 04/19/18 03:05 04/18/18 02:16 Oxygen Delivery Method Room Air Weight: 139 lb Body Mass Index (BMI) 25.4 Intake and Output for Last 24 Hours 04/17/18 04/18/18 04/19/18 23:59 23:59 23:59 Intake Total 1313 / 1313 Output Total 2650 / 2650 Balance -1337 / -1337 Medical Necessity - Tobacco Use Smoking Status: Current every day smoker Assessment/Plan All Active Problems (Last Updated 04/09/18 @ 12:35 by Lorrie Vega DO) related abdominal pain of lower quadrant, antepartum (Acute) Breech presentation of fetus (Resolved) Vaginal discharge during (Acute) POD#4 s/p PLTCS for breech presentation - Pt doing well. Discussed pain control expectations. Again discussed that she will not be getting oxycodone once she is discharge, and is to continue her increased dose of Subutex. Pt reports she has complete her program at [facility] and will be able to go home from the hospital - Bottlefeeding - She declines control at this time - Dispo: Discussed discharge tomorrow. Reviewed to come in to be seen in 1-2 weeks, and 4-6 weeks
--- NOTE | 2018-04-19 08:06 | PCM.DCCSEC ---
Discharge Diet: No Restrictions Discharge Activity: May not drive while taking narcotic pain medications., May Shower May resume sexual activity in: 6 weeks Weight Bearing Status: Weight bearing as tolerated Lifting Restrictions: No lifting greater than 25 lbs Call your doctor if your incision/area has: Increased Pain/ Swelling, Increased Redness, Foul Smelling Discharge, Swelling at the incision site Call your doctor if you observe: Fever of 101 or Higher, Inability to urinate, Inability to have a bowel movement, Using more than one pad per hour, Shortness of breath, Chest pain, Increased palpitations (irregular heartbeat), Calf discomfort, Uncontrolled pain Cleanse incision/area with: Soap & Water Instructions: After a Additional Instructions: If you experience any of the following, contact your healthcare provider. Bleeding that soaks a pad every hour for 2 hours Fever 100.4 or higher Unrelieved incision or abdominal pain Swelling, redness, discharge or bleeding from your incision or episiotomy site Your incision begins to separate Problems urinating (including inability to urinate or burning while urinating). Visual changes Severe headache Flu-like symptoms Pain or redness in one of both of your breasts Pain, warmth, tenderness or swelling in your legs, especially the calf area Frequent nausea and vomiting Symptoms of depression or anxiety If you experience any of the following, call 911 or go to the nearest Emergency Room. Chest pain Problems breathing Seizure activity Partial or complete paralysis of a body part, slurred speech, weakness or drooping of the face, or a sudden inability to walk or hold your balance Allergies/Adverse Reactions: Allergies diphenhydramine HCl [From Benadryl] Allergy (Verified 04/09/18 12:35) Hives Penicillins Allergy (Verified 04/09/18 12:35) Hives Medications to take at Discharge Buprenorphine HCl 12 mg SL BID 09/23/17 Docusate Sodium [Colace] 100 mg PO BID 03/14/18 Famotidine [Pepcid] 20 mg PO BID 03/14/18 Acyclovir 400 mg PO TID 04/02/18 Ferrous Sulfate 325 mg PO DAILY@0800 #30 tablet 04/17/18 Ibuprofen [Motrin] 800 mg PO TID #60 tablet 04/17/18 The following prescriptions were given: Ferrous Sulfate 325 mg PO DAILY@0800 #30 tablet Ibuprofen [Motrin] 800 mg PO TID #60 tablet Follow-Up: Call to make an appointment with your doctor for an incision check in 1-2 weeks. You will also need a 6 week post- follow up appointment. Test results from this visit will be discussed in further detail at your follow-up appointment, if applicable. When: In 1-2 weeks and in 4-6 weeks Primary Care Physician: Javi Steven MD [Primary Care Provider] -
--- NOTE | 2018-04-19 08:09 | DCINST_ITS ---
Discharge Diet: No Restrictions Discharge Activity: May not drive while taking narcotic pain medications., May Shower May resume sexual activity in: 6 weeks Weight Bearing Status: Weight bearing as tolerated Lifting Restrictions: No lifting greater than 25 lbs Call your doctor if your incision/area has: Increased Pain/ Swelling, Increased Redness, Foul Smelling Discharge, Swelling at the incision site Call your doctor if you observe: Fever of 101 or Higher, Inability to urinate, Inability to have a bowel movement, Using more than one pad per hour, Shortness of breath, Chest pain, Increased palpitations (irregular heartbeat), Calf discomfort, Uncontrolled pain Cleanse incision/area with: Soap & Water Instructions: After a Additional Instructions: If you experience any of the following, contact your healthcare provider. * Bleeding that soaks a pad every hour for 2 hours * Fever 100.4 or higher * Unrelieved incision or abdominal pain * Swelling, redness, discharge or bleeding from your incision or episiotomy site * Your incision begins to separate * Problems urinating (including inability to urinate or burning while urinating). * Visual changes * Severe headache * Flu-like symptoms * Pain or redness in one of both of your breasts * Pain, warmth, tenderness or swelling in your legs, especially the calf area * Frequent nausea and vomiting * Symptoms of depression or anxiety If you experience any of the following, call 911 or go to the nearest Emergency Room. * Chest pain * Problems breathing * Seizure activity * Partial or complete paralysis of a body part, slurred speech, weakness or drooping of the face, or a sudden inability to walk or hold your balance Allergies/Adverse Reactions: Allergies diphenhydramine HCl [From Benadryl] Allergy (Verified 04/09/18 12:35) Hives Penicillins Allergy (Verified 04/09/18 12:35) Hives Medications to take at Discharge Buprenorphine HCl 12 mg SL BID 09/23/17 Docusate Sodium [Colace] 100 mg PO BID 03/14/18 Famotidine [Pepcid] 20 mg PO BID 03/14/18 Acyclovir 400 mg PO TID 04/02/18 Ferrous Sulfate 325 mg PO DAILY@0800 #30 tablet 04/17/18 Ibuprofen [Motrin] 800 mg PO TID #60 tablet 04/17/18 The following prescriptions were given: Ferrous Sulfate 325 mg PO DAILY@0800 #30 tablet Ibuprofen [Motrin] 800 mg PO TID #60 tablet Follow-Up: Call to make an appointment with your doctor for an incision check in 1-2 weeks. You will also need a 6 week post- follow up appointment. Test results from this visit will be discussed in further detail at your follow- up appointment, if applicable. When: In 1-2 weeks and in 4-6 weeks Primary Care Physician: Javi Steven MD [Primary Care Provider] -
[2018-04-19 08:30] VITALS: BP 107/53; PULSE 66; RESP 18; TEMP 36.7
[2018-04-19] MEDS: Docusate Sodium 100 MG Capsule PO ×2 (08:42→22:20)
[2018-04-19 14:00] VITALS: BP 105/48; PULSE 78; RESP 16; TEMP 37.1
[2018-04-19 16:00] VITALS: BP 108/57; PULSE 65; RESP 18; TEMP 36.9; O2SAT 98
--- NOTE | 2018-04-19 17:06 | NURSING ---
Expiratory rhonchi noted throughout. Pt. reports having a smoker's cough.
[2018-04-19 20:01] VITALS: BP 112/61; PULSE 64; RESP 18; TEMP 36.6; O2SAT 98
[2018-04-19 23:58] VITALS: BP 115/55; PULSE 62; RESP 18; TEMP 36.5
--- NOTE | 2018-04-20 00:12 | NURSING ---
2358-reviewed discharge instructions with pt. questions answered. pt discharged to hotel status. given prepackaged medications and remaining 4 tablets of subutex with letter verifying this.
--- OUTSIDE RECORDS SUMMARY | 2018-06-02 10:25 | XMS RPT_ITS ---
:1995 Author Organization OHIP Support Name Relationship Address Phone ARIADNA KRZYSZTOF Unavailable [address] + [place] [address] LUIGI LORENZO Unavailable [address] [place] [address] + [place] [address] UE Unavailable Unavailable Unavailable ARIADNA, KRZYSZTOF Unavailable [address] + [place] [address] LUIGI LORENZO Unavailable [address] + [place] [address] UE Unavailable Unavailable Unavailable ARIADNA, KRZYSZTOF Unavailable [address] + [place] [address] LUIGI LORENZO Unavailable [address] [place] + [place] [address] UE Unavailable Unavailable Unavailable ARIADNA, KRZYSZTOF Unavailable [address] + [place] [address] LUIGI LORENZO Unavailable [address] + [place] [address] UE Unavailable Unavailable Unavailable ARIADNA, KRZYSZTOF Unavailable [address] + [place] [address] DAVID LORENZOY Unavailable [address] [place] + [place] [address] UE Unavailable Unavailable Unavailable ARIADNA, KRZYSZTOF Unavailable [address] + [place] [address] LUIGI LORENZO Unavailable [address] [place] + [place] [address] UE Unavailable Unavailable Unavailable ARIADNA, KRZYSZTOF Unavailable [address] + [place] [address] LORENZO LUIGI Unavailable [address] [place] [address] + [place] [address] UE Unavailable Unavailable Unavailable ARIADNA, KRZYSZTOF Unavailable [address] + [place] [address] LORENZO LUIGI Unavailable [address] [place] + [place] [address] UE Unavailable Unavailable Unavailable ARIADNA, KRZYSZTOF Unavailable [address] + [place] [address] JESSICA LUIGI Unavailable [address] + [place] [address] UE Unavailable Unavailable Unavailable Care Team Providers Name Role Phone [facility] Unavailable Javi Steele Attending Unavailable [facility] Unavailable Kwan Porter Attending Unavailable [facility] Unavailable Hilario Clemente Attending Unavailable [facility] Unavailable Gwen Mcdonnell Attending Unavailable Purvi Trejo Attending Unavailable Purvi Trejo Referring Unavailable [facility] Unavailable Purvi Trejo Admitting Unavailable Purvi Trejo Attending Unavailable [facility] Unavailable Lynn Kaplan Attending Unavailable [facility] Unavailable Samaria Kaplanre Referring Unavailable Wiswell, Fantasma Attending [facility]available [facility] Referring Unavailable [facility] Unavailable Wiswell, Fantasma Admitting Unavailable Wiswell, Fantasma Attending Unavailable Wiswell, Fantasma Referring Unavailable [facility] Care Unavailable DAILY SPENCER (SAFETY AND SECURITY OFFICER) Attending Unavailable AXEL HUANG Attending Unavailable LYNN SOARES Attending Unavailable AXEL HUANG Referring Unavailable AXEL HUANG Attending Unavailable ROSINA VALLE (CNM) Attending Unavailable ROSINA VALLE (CNM) Attending Unavailable DAILY SPENCER (SAFETY AND SECURITY OFFICER) Attending Unavailable AXEL HUANG Attending Unavailable DAILY SPENCER (SAFETY AND SECURITY OFFICER) Referring Unavailable PHILLIP, MELANIE A Attending Unavailable DAILY SPENCER ([facility]) Referring Unavailable WISWELL, FANTASMA Attending Unavailable AXEL HUANG Referring Unavailable WISWELL, FANTASMA Attending Unavailable WISWELL, FANTASMA Referring Unavailable PHILLIP, MELANIE A Attending Unavailable WISWELL, FANTASMA Referring Unavailable NEYHART [...] PHILLIP, MELANIE A Attending Unavailable [facility] (CNM) Referring Unavailable MASCI, JANNA A Referring Unavailable ROSINA VALLE (CNM) Attending Unavailable WISWELL, FANTASMA Attending Unavailable SAL, AXEL Attending Unavailable WISWELL, FANTASMA Attending Unavailable WISWELL, FANTASMA Attending Unavailable WISWELL, FANTASMA Attending Unavailable Nany, Dr. Yecenia Amaya Attending Unavailable Nany, Dr. Yecenia Amaya Referring Unavailable Nany, Dr. 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, [place] unspecified / Repository K90.9(ICD-10) 03/08/2018 Active Anemia complicating NA Active [facility] , [place] unspecified Repository trimester / O99.019(ICD-10) 03/25/2018 Active Other iron NA Active [facility] deficiency anemias [place] / D50.8(ICD-10) Repository 03/05/2018 Active Anemia complicating NA Active [facility] , third [place] trimester / Repository O99.013(ICD-10) 01/22/2018 Active Problem related to NA Active [facility] unspecified [place] psychosocial Repository circumstances / Z65.9(ICD-10) 01/21/2018 Active Personal history of NA Active [facility] other complications [place] of , Repository childbirth and the puerperium / Z87.59(ICD-10) 01/21/2018 Active Personal history of Active [facility] other mental and [place] behavioral Repository disorders / Z86.59(ICD-10) 01/21/2018 Active Drug use NA Active [facility] complicating [place] , Repository unspecified trimester / O99.320(ICD-10) 01/21/2018 Active Opioid dependence, NA Active [facility] uncomplicated / [place] F11.20(ICD-10) Repository 01/21/2018 Active snf (current) Active [facility] use of opiate [place] analgesic / Repository Z79.891(ICD-10) 01/21/2018 Active Vomiting of NA Active [facility] , [place] unspecified / Repository O21.9(ICD-10) 01/21/2018 Active Smoking (tobacco) NA Active [facility] complicating [place] , Repository unspecified trimester / O99.330(ICD-10) 01/21/2018 Active Unspecified Active [facility] infection of [place] urinary tract in Repository , unspecified trimester / O23.40(ICD-10) 09/21/2017 Active Elevated urine Active [facility] levels of drugs, [place] medicaments and Repository biological substances / R82.5(ICD-10) 09/19/2017 Active Personal history of Active [facility] other specified [place] conditions / Repository Z87.898(ICD-10) 09/13/2017 Active Herpesviral Active [facility] infection of [place] urogenital system, Repository unspecified / A60.00(ICD-10) 08/30/2017 Active Encounter for other NA Active [facility] specified special [place] examinations / Repository Z01.89(ICD-10) 01/21/2018 Active Supervision of high NA Active [facility] risk , [place] unspecified, Repository unspecified trimester / O09.90(ICD-10) 01/21/2018 Active 27 weeks gestation NA Active [facility] of / [place] Z3A.27(ICD-10) Repository 08/30/2017 Active Unknown / AXEL HUANG Active [facility] UNK(Unknown) [place] Repository PROCEDURES PROCEDURES No Procedure Records FoundRESULTS RESULTS PROGRESS Observed: 05/03/2018 Status: COMPLETED Source: [facility] 10:03 AM [facility] RE[facility] HNO ID: [id number] Author: Fantasma Vega Service: (none) Author Type: Physician Type: Progress Notes Filed: 05/03/2018 10:25 AM Note Text: SUBJECTIVE: 22 year old female presents for 2 week post-op exam. S/p PLTCS for breech presentation. She is doing well and has no complaints. Bleeding decreasing and light. Minimal pain. Denies fevers, uncontrolled pain, vomiting, changes in BM's, difficulty with urination. Living with grandmother who is helping her care for baby. Baby is doing well. She is going to meetings every day, and states she has not used drugs since her . Still on Subutex. OBJECTIVE: Incision: Dry and intact, without redness Abdomen: Soft and Non-tender PLAN: ? Incision healing well ? Patient doing well post-op ? Discussed control options. Desires Nexplanon ? RTO 1 week for Nexplanon placement and in 4 weeks for visit I have reviewed and updated past medical and surgical history, medications and allergies. Fantasma Vega DO DISCHARGE INSTRUCTION Observed: 04/19/2018 Status: F Source: [facility] 8:09 AM [facility] REPOSITORY [facility] Medical Records Department [address] [place] [address] Instructions for Home/Discharge Instructions 04/19/18 0806 MR#: [id number] Acct: [id number] Name: REJI LORENZO Rep #: [id number] : 1995 22 From: Fantasma Vega DO [...] Sulfate 325 mg PO DAILY@0800 #30 tablet 04/17/18 Ibuprofen [Motrin] 800 mg PO TID #60 [...] Javi Garcia MD [Primary Care Provider] - 04/19/18 0809 <Electronically signed by Fantasma Vega DO> Date Fantasma Vega DO CC: Javi Garcia MD CBC-COMPLETE BLOOD CNT Collected: 04/17/2018 Status: F Source: [facility] 6:30 AM [facility] REPOSITORY Order Comment: Comments: Day #1 Reason [...] MPV 8.3 Performed By: #### L100.0500 #### [facility] [address] [place], [address] PROGRESS Observed: 04/16/2018 Status: COMPLETED Source: [facility] 3:21 PM [facility] HNO ID: [id number] Author: Keisha Cox LPN Service: (none) Author Type: (none) Type: Progress Notes Filed: 04/16/2018 3:22 PM Note Text: Pt delivered via C/S at [facility] on 04/16/[address] Vega and SHANNAN. See OB Outcome note. Keisha Cox LPN OPERATIVE REPORT Observed: 04/16/2018 Status: F Source: [facility] 1:21 PM [facility] RE[facility]IT[facility] Medical Records Department [address] [facility] [place] [address] Operative Report 04/16/18 1315 MR#: [id number] Acct: [id number] Name: REJI LORENZO Rep #: [id number] : 1995 22 From: Fantasma Vega DO PCP: Javi Garcia MD Status: ADM IN Y Location: PW726-1 - Problem List (1) Breech presentation of fetus Status: Resolved Qualifiers: Fetus number: single or unspecified fetus Delivery Classification: Scheduled Final CHIN: 04/20/18 Gestational age: 39 Weeks and 3 Days Indications for : Breech Description of Procedure: Findings: Female in breech presentation. Normal uterus, tubes, and [...] manual traction. Clear fluid was noted. The was subsequently delivered in breech presentation without [...] Date Fantasma Vega DO CC: Javi Garcia MD; Fantasma Vega DO Signed HISTORY AND PHYSICAL Observed: 04/16/2018 Status: F Source: [facility] EXAM 1:15 PM [facility] REPOSITORY [facility] Medical Records Department [address] [place] [address] History and Physical 04/16/18 1205 MR#: [id number] Acct: [id number] Name: REJI LORENZO Rep #: [id number] : 1995 22 From: Fantasma Vega DO PCP: Javi Garcia MD Status: ADM IN Y Location: BU115-3 - Problem List (1) Breech presentation of fetus Status: Resolved Qualifiers: Fetus number: single or unspecified fetus History Date of Admission: 04/16/18 Final CHIN: 12/15/18 Final CHIN Source: US <20 weeks Gestational [...] Pregnancies Delivery Name GA[facility]Weeks [facility] FOB Date t [facility] Location Labs: GBS neg, Syphilis NR, [...] SCREEN Collected: 04/16/2018 Status: F Source: [facility] 10:30 AM [facility] REPOSITORY TYPE CODE TESTS RESULT OUT OF [...] Normal NEGATIVE Performed By: #### L505.5000 #### [facility] [place], [address] CBC W/DIFF, AUTOMATED Collected: 04/16/2018 Status: F Source: [facility] 10:30 AM [facility] REPOSITORY TYPE CODE TESTS RESULT OUT OF [...] Lymph 2.08 Performed By: #### L100.0100 #### [facility] [address] [facility] [place], [place], [address] TYPE AND SCREEN Collected: 04/16/2018 Status: F Source: [facility] 10:30 AM [facility] REPOSITORY Order Comment: Reason for Type AND Screen/Red Cells: SURGERY Type of Surgery: TYPE CODE TESTS RESULT OUT OF RANGE REFERENCE UNITS LAB B10.0800 A Normal BLOOD TYPE GEL POSITIVE LAB B100.4000 Normal Antibody NEGATIVE Screen Performed By: #### B101.7450 #### [facility] [address] [place], [place], [address] HEPATITIS C ANTIBODIES Collected: 04/16/2018 Status: F Source: [facility] 10:30 AM [facility] REPOSITORY TYPE CODE TESTS RESULT OUT OF RANGE REFERENCE UNITS LAB L3100.0650 0.0-0.9 s/co ratio Normal HEP C AB <0.1 Result Comment: Negative: < 0.8 Indeterminate: 0.8 - 0.9 Positive: > 0.9 The CDC recommends that a positive HCV antibody result be followed up with a HCV Nucleic Acid Amplification test (413559). Performed at: [facility] [id number] Occupational Therapy Specialist: Lizandro Mcfadden PhD, Phone: [phone] Performed By: #### L3100.0625 #### [facility] (refer to report for specific site) refer to report for address and phone number HOSP Observed: 04/16/2018 Status: COMPLETED Source: [facility] 12:00 AM [facility] Patient Update (WOOB) REJI LORENZO ([id number]) 1995 F NFR Date Time Provider Department 04/16/18 FANTASMA VEGA During your visit today, we recorded the following information about you: Keisha Cox LPN 04/16/2018 3:22 PM Signed Pt delivered via C/S at [facility] on 04/16/[address] Vega and SHANNAN. See OB Outcome note. Keisha Cox KORI Allergies As of Date: 04/16/2018 Noted Allergy [...] * Patient not taking: Reported on 03/18/2018 [id number] FUM 28 MG* Take 1 tablet by [...] urine drug screen [R82.5] INVALID FOR* More... Zygbh-hhv-dnbtv fetus, second trimester [O36.59*INVALID FOR* More... Poor social situation [Z65.9] INVALID FOR* More... Antepartum anemia [O99.019] INVALID FOR* More... Anemia during [O99.019] INVALID FOR* ALEXANDRE (iron deficiency anemia) [D50.9] INVALID FOR* Iron malabsorption [K90.9] INVALID FOR* Breech presentation with problem [O32*INVALID FOR*04/10/2018 Encounter Status:Closed by KEISHA COX LPN on 04/16/18 HISTORY PHYSICAL Observed: 04/11/2018 Status: COMPLETED Source: [facility] 12:08 PM [facility] REPOSITORY O ID: [id number] Author: Fantasma Vega Service: (none) Author Type: [...] mouth three times daily as needed. 95-iron crv-kliiq-ktu ( + DHA) 28 mg iron- 800 [...] No history of dysuria, frequency or incontinence TRANSLATOR/INTERPRETER: Negative for abnormal vaginal bleeding, abnormal vaginal [...] Discussed plan of care with Teresa at [phone] Robles, who prescribes the patients Subutex. Will likely plan on increasing the Subutex while in the hospital to assist with pain control. Teresa or Dr. Robles to call back tomorrow for definitive plan Fantasma Vega DO (ROM) RUPTURE OF Collected: 04/09/2018 Status: F Source: [facility] 12:07 PM [facility] REPOSITORY Order Comment: Has pt arrived? Y TYPE CODE TESTS RESULT OUT OF RANGE REFERENCE UNITS LAB L205.1310 Negative Normal ROM Negative Result Comment: Amniotic fluid not present indicates No Rupture of Membranes at time of specimen collection. Performed By: #### L205.1000 #### [facility] [address] [place], [address] PROGRESS Observed: 04/04/2018 Status: COMPLETED Source: [facility] 12:46 PM [facility] REPOSITORY HNO ID: [id number] Author: Axel Huang Service: (none) Author Type: [...] Status: F Source: [facility] 4:40 AM [facility] REPOSITORY TYPE CODE TESTS RESULT OUT OF [...] NEGATIVE Performed By: #### L505.5000, L400.0001 #### [facility] [address] [place], [place], [id number] URINALYSIS, COMPLETE Collected: 04/02/2018 Status: F Source: [facility] 4:40 AM [facility] REPOSITORY Order Comment: How was Urine Obtained? [...] SEEN Performed By: #### L505.5000, L400.0001 #### [facility] [address] [place], [address] (ROM) RUPTURE OF Collected: 04/02/2018 Status: F Source: [facility] 4:30 AM [facility] REPOSITORY TYPE CODE TESTS RESULT OUT OF RANGE REFERENCE UNITS LAB L205.1310 Negative Normal ROM Negative Result Comment: Amniotic fluid not present indicates No Rupture of Membranes at time of specimen collection. Performed By: #### L205.1000 #### [facility] [address] [place], [address] PROGRESS Observed: 03/26/2018 Status: COMPLETED Source: [facility] 5:16 PM [facility] HNO ID: [id number] Author: Rosina Ortiz) Domingo Service: (none) Author Type: Documentation Designer Type: Progress Notes Filed: 03/26/2018 5:22 PM Note Text: CM - S: Reji Lorenzo presents for a routine OB visit at 36w3d. She denies LOF, VB, DFM or cramping/contractions. Patient having weekly NSTs for S<D and Substance Use during this . Patient still at [facility] for treatment. Still smoking 1 ppd. [...] supervision of other normal in third trimester -FKC teaching and PTL precautions reviewed. - URINE [...] STREP PCR Collected: 03/26/2018 Status: F Source: [facility] 11:36 AM [facility] TYPE CODE TESTS RESULT OUT OF REFERENCE UNITS RANGE LAB GBPCRT Negative for GROUP Group B B STREP PCR Streptococcus by PCR. Performed By: #### GBPCR #### [facility] [address] [place] [address] PROGRESS Observed: 03/26/2018 Status: COMPLETED Source: [facility] 11:08 AM [facility] HNO ID: [id number] Author: Rosina Valle Service: (none) Author Type: Documentation Designer Type: Progress Notes Filed: 03/26/2018 5:22 PM [...] APRN.CNM PROGRESS Observed: 03/25/2018 Status: COMPLETED Source: [facility] 11:32 AM [facility] RE[facility] HNO ID: [id number] Author: Melanie Phillip Service: (none) Author Type: [...] indicated PROGRESS Observed: 03/19/2018 Status: COMPLETED Source: [facility] 2:13 PM [facility] HNO ID: [id number] Author: Treasure Ashford Service: (none) Author Type: Documentation Designer Type: Progress Notes Filed: 03/19/2018 2:22 PM [...] URINALYSIS, COMPLETE Collected: 03/14/2018 Status: F Source: [facility] 1:50 PM [facility] RE[facility]IT[facility] Order Comment: How was Urine Obtained? [...] URINE SEEN Performed By: #### L400.0001 #### [facility] [address] [place], [address] URINE DRUG SCREEN Collected: 03/14/2018 Status: F Source: [facility] 1:50 PM [facility] REPOSITORY TYPE CODE TESTS RESULT OUT OF [...] Normal NEGATIVE Performed By: #### L505.5000 #### [facility] [address] [place], [place], [address] Observed: 03/14/2018 Status: F Source: [facility] CULTURE, URINE 1:50 PM [facility] REPOSITORY Urine Culture There are no CLSI standards for interpretation of this Drug/Organism combination. ORGANISM 1: Lactobacillus species Rose Count >100,000 Performed By: #### M100.0650 #### [facility] [address] [place], [address] PROGRESS Observed: 03/08/2018 Status: COMPLETED Source: [facility] 8:48 AM [facility] HNO ID: [id number] Author: Fantasma Vega Service: (none) Author Type: Physician Type: Progress Notes Filed: 03/08/2018 8:48 AM Note Text: This patient is 33 wks . She has not been compliant with iron and her Hgb is now 9. I would like for her to be set up for IV iron. Thanks! CBC Collected: 03/05/2018 Status: F Source: [facility] 11:50 AM [facility] TYPE CODE TESTS RESULT OUT [...] nRBC <0.01 Performed By: #### CBC #### [facility] [address] [place], [place] [address] PROGRESS Observed: 03/05/2018 Status: COMPLETED Source: [facility] 11:26 AM [facility] HNO ID: [id number] Author: Mallory Guillen Service: (none) Author Type: Software Deployment Engineer Type: Progress Notes Filed: 03/05/2018 1:44 PM [...] severely ill: Yes Patient denies history of Guillain-[place] Syndrome (a severe paralytic illness): Yes Tdap Adacel injection was given without incident. See immunizations for details of immunizations administered today. VIS sheet provided: Yes Provider Fantasma Vega DO was present in office at time of injection. Mallory Guillen MA TOXICOLOGY SCREEN,UR Collected: 02/18/2018 Status: F Source: [facility] 4:45 PM [facility] REPOSITORY TYPE CODE TESTS [...] on the same specimen through Client Services ([phone]) if contacted within 48 hours of initial testing. [1]Substance Abuse and Mental Health Services Administration (2012). Clinical Drug Testing in Primary Care Technical Assistance Publication Series 32. Department of Health and Human Services, [place], p.10. These tests were developed and their performance characteristics determined by [facility] ([facility]). They have not been cleared or a pproved by the FDA. [facility] is regulated under CLIA as qualified to perform high complexity testing. These tests are used for clinical purposes. They should not be regarded as investigational or for research. Performed By: #### UTOX2 #### [place] [id number] PROGRESS Observed: 02/05/2018 Status: COMPLETED Source: [facility] 4:55 PM [facility] HNO ID: [id number] Author: Melanie Phillip Service: (none) Author Type: [...] indicated CNPN Observed: 01/22/2018 Status: COMPLETED Source: [facility] 12:00 AM [facility] RE[facility] Telephone (WOOB) REJI LORENZO ([id number]) 1995 F NFR Date Time Provider Department [...] Take 1 tablet by mouth daily * [id number] FUM 28 MG* Take 1 tablet by [...] urine drug screen [R82.5] INVALID FOR* More... Vbbhi-one-yzpeb fetus, second trimester [O36.59*INVALID FOR* More... Poor [...] AND DIFFERENTIAL Collected: 01/21/2018 Status: F Source: [facility] 11:58 AM [facility] RE[facility] TYPE CODE TESTS [...] k/uL Abs Lymph 1.82 LAB AMONO % Rock% 5.2 LAB AAMONO <0.87 k/uL Abs Rock 0.53 LAB AEOS % Eosin% 3.8 LAB AAEOS <0.46 k/uL Abs Eosin 0.39 LAB ABASO % Baso% 0.6 LAB AABASO <0.11 k/uL Abs Baso 0.06 LAB AUNRBC 0 /100 WBC NRBCs 0.0 LAB ABNRBC <0.01 k/uL Absolute nRBC <0.01 LAB DTYP DTYPE Auto Diff Performed By: #### CBCDIF, HBSAG, HIV12C, SYPHGX, RUBIGG #### [place] [address] HEPATITIS B SURF. AG Collected: 01/21/2018 Status: F Source: [facility] 11:58 [facility] REPOSITORY TYPE CODE TESTS RESULT OUT OF REFERENCE UNITS RANGE LAB HBSAG Negative Hepatitis B Negative Surf. Ag Performed By: #### CBCDIF, HBSAG, HIV12C, SYPHGX, RUBIGG #### [place] [address] HIV 12 COMBO (AG/AB) Collected: 01/21/2018 Status: F Source: [facility] 11:58 [facility] REPOSITORY TYPE CODE TESTS RESULT OUT OF REFERENCE UNITS RANGE LAB HVAGAB Non Reactive HIV Non Reactive 12 Ag/Ab Result Comment: (NOTE) HIV Information: [place] Rev. Code 3701.243(E): This information has been [...] #### CBCDIF, HBSAG, HIV12C, SYPHGX, RUBIGG #### [facility] [address] [place] [address] SYPHILIS IGG WITH Collected: 01/21/2018 Status: F Source: [facility] 11:58 AM [facility] TYPE CODE TESTS RESULT OUT [...] #### CBCDIF, HBSAG, HIV12C, SYPHGX, RUBIGG #### [place] [address] [place] [address] RUBELLA IGG ANTIBODY Collected: 01/21/2018 Status: F Source: [facility] 11:58 AM [facility] TYPE CODE TESTS RESULT OUT [...] #### CBCDIF, HBSAG, HIV12C, SYPHGX, RUBIGG #### [place] [address] [place] [address] 50G, 1HR GEST. Collected: 01/21/2018 Status: F [facility] TYPE CODE TESTS RESULT OUT OF REFERENCE UNITS RANGE LAB GLUP 74-134 mg/dL Glucose 108 Screen, Preg Result Comment: [place] [employer] ([place]) guidelines state a gestational diabetes mellitus positive screen is made, in women not previously diagnosed with overt diabetes, when the 1 hr plasma glucose level is equal to or above 140 mg/dL. The [facility] Dye Range Operator and [facility] recommends a 135 mg/dL cutoff. Performed By: #### GLTGST #### [facility] [address] [place], [place] [address] TYPE AND SCR,PRENATL Collected: 01/21/2018 Status: F Source: [place] 11:58 AM [facility] REPOSITORY TYPE CODE TESTS RESULT OUT OF REFERENCE UNITS RANGE LAB %ABR A ABO/RH(D) POSITIVE LAB % Antibody NEG Screen Performed By: #### TSPN #### [facility] [address] [place], [place] [address] OFFICE VISIT (PHYSICAL Observed: 12/27/2017 Status: UNK Source: [facility]) 6:24 PM HOSPITALS REPOSITORY [...] Meds Vitamins 28-0.8 MG Oral Tablet; Therapy: (Recorded:[id number]) to Recorded Dispense: 0 Days ; #: Sufficient TABS; Refill: 0;For: ; JONES = N; Record; Last Updated By: Devi Peterson; 12/27/2017 9:48:49 AM Vitals Vital Signs Recorded: 82Mnz2386 09:49AM Heart Rate70 Gxrnskda52 Jcekvnsxg30 Height5 ft 2 in Kxhbuv813 lb 7 oz BMI Dvrmcgffas77.67 BSA Calculated1.59 Diagnoses/Problems Opioid abuse (305.50) (F11.10) [...] 1 child High 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 Performed By: #### DSPMR #### [facility] [address] [place] [address] BUPRENORPHINE SCREEN TO Collected: 12/27/2017 Status: F Source: UNIVERS[facility] CONFIRM,URINE [...] use. Test developed and characteristics determined by [employer]. See Compliance Statement B: [employer] Performed by [facility], [address] [place] [address] www.[employer], Alin Jarquin MD - Lab. Director Performed By: #### BUPRS #### [facility] [address] [place] [address] [facility] [address] [address] COCAINE CONFIRM,URINE Collected: 12/27/2017 Status: F Source: [facility] 9:54 [facility] REPOSITORY TYPE CODE TESTS RESULT OUT [...] laboratory. Test developed and characteristics determined by [facility]. See Compliance Statement B: [employer] Performed by [facility], [address] [place] [address] www.[employer], Alin Jarquin MD - Lab. Director Performed By: #### COCCN #### [facility] [address] [place] [address] BENZODIAZEPINES CONF,URINE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 8:20 AM Signed Negative x ray, scan. MD Jerzy Pearce Ma 06/07/2017 2:21 PM Signed Done. Allergies As of Date: 06/01/2017 Noted Allergy Reaction BENADRYL (DIPHENHYDRAMINE HCL) 05/28/2014 14 - Other: See Comments Comments: Hyper/anxiety PENICILLINS 06/19/2005 2 - Rash Date Reviewed: 03/23/2017 Reviewed by: Keisha ([facility]) COLLEEN Pinzon - Fully Assessed [...] Status:Closed by JAVI GARCIA MD on 06/01/17 MINH Observed: 05/31/2017 Status: COMPLETED Source: [place] 12:00 AM [facility] Telephone (WADS) REJI LORENZO ([id number]) 1995 F NFR Date Time Provider Department 05/31/17 MERLIN GARCIA During your visit today, we recorded the following information about you: Jerzy Terrazas Ma 05/31/2017 8:38 AM Signed Type of letter/form/fax Received XR R hand Form received from [facility] and placed on MD desk () for review. Route to [place] when form completed for processing Jerzy Terrazas Ma 06/07/2017 2:20 PM Signed Sent to scan. Jerzy Terrazas Ma Allergies As of Date: 05/31/2017 Noted Allergy Reaction BENADRYL (DIPHENHYDRAMINE HCL) 05/28/2014 14 - Other: See Comments Comments: Hyper/anxiety PENICILLINS 06/19/2005 2 - Rash Date Reviewed: 03/23/2017 Reviewed by: Keisha ([facility]) COLLEEN Pinzon - Fully Assessed Reason for Visit: Radiology XR [1491] Cmt: [facility] DOS 05/30/17 Prescriptions as of 05/31/2017 [...] EMERGENCY DEPARTMENT Observed: 05/30/2017 Status: F Source: [place] SUMMARY 4:50 PM [facility] REPOSITORY [facility] Medical Records Department [address] [address] Emergency Department Summary 05/30/17 1328 MR#: [id number] Acct: [id number] Name: REJI LORENZO Rep #: [id number] : 1995 21 From: Javi Steele MD [...] right wrist This note was generated with [employer] dictation software. It may contain incorrect words, [...] problems, contact your Primary Care Provider. Call [facility] [facility] ([phone]) or report to the closest Emergency Room. Call 911 if necessary. 05/30/17 1650 <Electronically signed by Javi Steele MD> Date Javi Steele MD Cosigner Signature (If Indicated): Date CC: Javi Garcia MD DISCHARGE INSTRUCTION Observed: 05/30/2017 Status: F Source: [place] 4:50 PM [facility] REPOSITORY [facility] Medical Records Department [address] [place] [address] Discharge Instruction 05/30/17 1405 MR#: [id number] Acct: [id number] Name: REJI LORENZO Rep #: [id number] : 1995 21 From: Javi Steele MD PCP: Javi Garcia MD Status: [facility] ED Disposition - Plan for ED Patient: [...] your Primary Care Provider. Call [facility] ([phone]) or report to the closest Emergency Room. Call 911 if necessary. 05/30/17 1650 <Electronically signed by Javi Steele MD> Date Javi Steele MD Cosigner Signature (If Indicated): Date CC: Javi Garcia MD HAND MIN 3 VIEWS Observed: 05/30/2017 Status: F Source: [place] 1:27 PM [facility] REPOSITORY [facility] Imaging Services [address] [place] [address] Hand Min 3 Views MR#: [id number] Acct: [id number] Name: REJI LORENZO Rep #: [id number] : 1995 F 21 From: Wilberto Sylvester MD PCP: Javi Garcia MD Status: REG ER Study: Hand Min 3 Views Date of Exam: 05/30/17 Exam# [id number] Ordering Dr: Javi Steele MD STUDY: X-RAY [...] Wilberto Sylvester MD at 14:04 EST Tel [phone], Service support , CC: Javi Garcia MD; Javi Steele MD 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 And 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: Signed ALLERGIES ALLERGIES DATE TYPE / NAME / CODE REACTION SEVERITY SOURCE CODE 04/09/2018 Drug diphenhydramine Hives Unknown Luis Allergy/41 HCl/[id number](RXNORM Community [id number]([facility]) Repository 04/09/2018 Drug Penicillins/[id number] Hives Unknown [place] Allergy/41 6(RXNORM) Community 5775135([facility]) Repository 05/28/2014 DRUG DIPHENHYDRAMINE HCL OTHER: SEE C [facility] INGREDI/41 [facility] [id number]([facility]) 06/19/2005 Drug PENICILLINS RASH [facility] Class/[address] [place] [address]([facility]) ENCOUNTERS ENCOUNTERS ADMIT/DISCHARGE ACCOUNT ADMITTING ENCOUNTER LOCATION SOURCE NUMBER CLASS 05/03/2018/05/06/20 [id number] [place] Repository 04/20/2018 [id number] [facility] ing:WP Repository 04/16/2018/04/19/20 [id number] [facility] ing:WPRoom: Repository KZ123Tsa: 1 04/11/2018/04/12/20 [id number] Ambulatory [place] 18 [facility] [address] [place] Repository 04/10/2018/04/11/20 [id number] Ambulatory [place] 18 [facility] [place] Repository 04/09/2018/04/09/20 [id number] Ambulatory Luis [place] 18 [facility] ing:WPOUTRoom Repository : [id number] 04/04/2018/04/05/20 [id number] Ambulatory [place] 18 [facility] [place] Repository 04/03/2018/04/04/20 [id number] Ambulatory [place] 18 [facility] [place] Repository 04/02/2018/04/02/20 [id number] Ambulatory Luis Luis 18 [facility] ing:WPOUTRoom Repository : WP012 03/26/2018/03/27/20 [id number] Ambulatory [place] 18 [facility] [address] [place] Repository 03/25/2018/03/26/20 [id number] Ambulatory [place] 18 [facility] [place] Repository 03/25/2018/03/26/20 [id number] Ambulatory [place] 18 [facility] [address] [place] Repository 03/22/2018/03/25/20 [id number] Ambulatory [place] 18 [facility] [address] [place] Repository 03/20/2018/03/21/20 [id number] Ambulatory [place] 18 [facility] [address] [place] Repository 03/18/2018/03/20/20 [id number] Ambulatory [place] 18 [facility] [address] [place] Repository 03/14/2018/03/15/20 [id number] Ambulatory [place] 18 [facility] [address] [place] Repository 03/14/2018/03/14/20 [id number] Ambulatory Luis [place] 18 [facility] ing:WPOUTRoom Repository : WP013 03/12/2018/03/13/20 [id number] Ambulatory [place] [facility] [address] [place] Repository 03/11/2018/03/12/20 [id number] Ambulatory [place] [facility] [address] [place] Repository 03/05/2018/03/05/20 [id number] Ambulatory [place] [facility] [address] [place] Repository 03/05/2018/03/07/20 [id number] Ambulatory [place] [facility] [address] [place] Repository 02/18/2018/02/20/20 [id number] Ambulatory [place] [facility] [address] [place] Repository 02/05/2018/02/08/20 [id number] Ambulatory [place] [facility] [address] [place] Repository 02/05/2018/02/08/20 [id number] Ambulatory [address] [place] Repository 01/21/2018/01/22/20 [id number] Ambulatory [address] [place] Repository 01/21/2018/01/23/20 [id number] Ambulatory [address] [place] Repository 12/27/[id number] Repository 12/09/2017/12/10/19 [id number] Emergency Luis [place] 18 [facility] ing:ED Repository 11/20/2017/11/22/19 [id number] Ambulatory [address] [place] Repository 11/20/2017/11/27/19 [id number] Ambulatory [address] Repository 11/16/2017/11/20/19 [id number] Ambulatory [address] Repository 10/25/2017/10/27/19 [id number] Ambulatory [address] Repository 09/23/2017/09/24/19 [id number] Emergency Luis [place] [address] [place] [address] ing:ED Repository 09/19/2017/09/22/19 [id number] Ambulatory [address] Repository 09/18/2017/09/19/19 [id number] Emergency Luis [place] [address] [place] [address] ing:ED Repository 09/13/2017/09/18/19 [id number] Ambulatory [address] Repository 08/30/2017/09/01/19 [id number] Ambulatory [address] Repository 08/30/2017/08/31/19 [id number] Ambulatory [address] Repository 08/30/2017/09/04/19 [id number] Ambulatory [address] [place] Repository 08/21/2017/08/30/19 [id number] Ambulatory [address] Repository 05/30/2017/05/30/19 [id number] Emergency [place] Luis [address] [place] [address] ing:ED Repository PAYERS PAYERS ENCOUNTER GUARANTOR PAYER SUBSCRIBER SOURCE 04/20/2018 REJI Lion Primary REJI [id number] Insurance:[facility]ELISA AMANDAB: [facility] lionel DELAROSA Number: [id number] [facility]ers [facility] [address]Hsr: [id number] Repository Date:2018-04-01P O (HP) [address]ATTN: [place] [address]AB: 04/20/2018 Secondary NOT GIVENUNK Luis Insurance:SELF PAY [facility] Number: Effective Repository Date:2018-04-01 04/16/2018 REJI Lion Primary REJI Smith [id number] Insurance:CARESOURCEP SMITHDOB: [facility] Number: [id number] [id number] Repository [address]Oyt: (228) Date:2018-04-10P O [phone] (HP) [address]ATTN: [place] [address]WP: 04/16/2018 Secondary NOT GIVENUNK [place] Insurance:SELF PAY [facility] Number: Effective Repository Date:2018-04-10 04/09/2018 REJI J Primary REJI Smith [id number] OLD Insurance:CARESOURCEP SMITHDOB: [facility] lionel DAWSON Number: [id number] Corners Regional Health Center [address]Sbh: [id number] Repository Date:2018-04-09P O (HP) [address]ATTN: [place] [address]OR: 04/09/2018 Secondary NOT GIVENUNK [place] Insurance:SELF PAY [facility] Number: Effective Repository Date:2018-04-09 04/02/2018 REJI Lion Primary REJI Smith [id number] OLD Insurance:CARESOURCEP SMITHDOB: [facility] lionel DAWSON Number: [id number] Corners Regional Health Center [address]Grp: [id number] Repository Date:2018-04-02P O (HP) [address]ATTN: [place] [address]NW: 04/02/2018 Secondary NOT GIVENUNK Luis Insurance:SELF PAY [facility]: Effective Repository Date:2018-04-02 03/14/2018 REJI Lion Primary REJI [id number] O[address] Insurance:CARESOURCEP SMITHDOB: [facility] lionel DELAROSA Number: [id number] Corners Regional Health Center [address]Rcw: [id number] Repository Date:2018-03-14P O () [address]ATTN: [place] [address]WI: 03/14/2018 Secondary NOT GIVENUNK [place] Insurance:SELF PAY [facility] Number: Effective Repository Date:2018-03-14 12/27/2017 Reji [facility] Reji Cortes [place]: Insurance:CaresourceP SmithDOB: [facility] Number: [id number] Repository [place] [id number] [facility] Date:Plan [place], [place] [address]Bpf: (883) Name:[facility] [address] [address]: (EQ) [address], [place] [phone] () [phone]: 12/09/2017 REJI Lion Primary REJI Smith [id number] OLD Insurance:CARESOURCEP SMITHDOB: [facility] lionel DELAROSA Number: [id number] Corners Regional Health Center [address]Ofz: [id number] Repository Date:2017-12-09P O () [address]ATTN: [place] [address]BI: 12/09/2017 Secondary NOT GIVENUNK [place] Insurance:SELF PAY [facility] Number: Effective Repository Date:2017-12-09 09/23/2017 REJI Lion Primary REJI Smith [id number] OLD Insurance:CARESOURCEP SMITHDOB: [facility] JULIO C lionel DAWSON Number: [id number] Corners Regional Health Center [address]Bfe: [id number] Repository Date:2017-09-23P O (HP) [address]ATTN: [place] [address]FS: 09/23/2017 Secondary NOT GIVENUNK [place] Insurance:SELF PAY [facility] Number: Effective Repository Date:2017-09-23 09/18/2017 REJI TENORIO Primary ERJI TENORIO Luis [id number] OLD Insurance:CARESOURCEP [facility] Number: [id number] Corners Regional Health Center [address]Mxl: [id number] Repository Date:2017-09-18P O () [address]ATTN: [place] [address]NN: 09/18/2017 Secondary NOT GIVENUNK [place] Insurance:SELF PAY [facility] Number: Effective Repository Date:2017-09-18 05/30/2017 Reji Tenorio Primary Luigi W SmithDOB: Luis [id number] O[address] Insurance:MEDICAL [id number] [address]Kut: Number: Repository [id number] (HP) Date:[id number] [address] [address]SN: 05/30/2017 Secondary NOT GIVENUNK Luis Insurance:SELF PAY [facility] Number: Effective Repository Date:2017-05-30
== END 2018-04-19 11:58 | disposition home or self-care (01) | DRG 540 ==
PROVIDERS: Admitting Provider Obstetrics & Gynecology; Family Provider Family Medicine; PCP Family Medicine; Referring Provider Obstetrics & Gynecology; Visit Provider Obstetrics & Gynecology
PROC: 10D00Z1 Extraction of Products of Conception, Low, Open Approach (ICD-10-PCS; CPT 59514; principal; 2018-04-16 11:45)
DX: O32.1XX0 Maternal care for breech presentation, not applicable or unspecified (principal); Z3A.39 39 weeks gestation of pregnancy; Z37.0 Single live birth; F17.200 Nicotine dependence, unspecified, uncomplicated; O99.334 Smoking (tobacco) complicating childbirth; O98.32 Other infections with a predominantly sexual mode of transmission complicating childbirth; A60.00 Herpesviral infection of urogenital system, unspecified; Z79.899 Other long term (current) drug therapy
CPT/HCPCS: 80307; 85025; 85027; 86803; 86850; 86900; 99218; J7120; A4216; G0378

== ENCOUNTER 2018-07-02 21:51 | Emergency (ER) | payer MEDICAID, SELFPAY ==
[2018-04-16 10:37] VITALS: BMI 25.4
[2018-07-02 21:52] VITALS: BP 117/73; PULSE 108; RESP 22; TEMP 36.6; O2SAT 100; BMI 20.1
[2018-07-02 22:15] VITALS: BP 121/71; PULSE 99; RESP 18; O2SAT 100
[2018-07-02] MEDS: Naloxone 0.4 MG/ML Syringe IV (22:15)
--- NOTE | 2018-07-02 22:31 | CM.ED ---
SOCIAL WORK NOTE DISCUSSED CASE WITH PT'S NURSE. PT BROUGHT IN BY [place] D/T OVERDOSE-HEROIN. PER NURSING, PT'S MOTHER LIVES OUT OF STATE. GRANDFATHER IS DRIVING PT TO MEET MOTHER [facility] AND ANTICIPATE PT TO GET TREATMENT OUT OF STATE. NO NEEDS AT THIS TIME. THIS WORKER WILL REMAIN AVAILABLE IF NEEDED. ARLINE ACOSTA, DATABASE PROGRAMMER ANALYST, ELECTRON MICROPROBE OPERATOR.
[2018-07-02 23:00] VITALS: BP 111/71; PULSE 91; RESP 16; O2SAT 100
--- NOTE | 2018-07-02 23:31 | ED.DCSUM_ITS ---
- ER Visit Summary Date of Service: 07/02/18 Chief Complaint: Arrived by ambulance with depressed level of consciousness. History of Present Illness: The patient is a 22 F who admits to using heroin. She was not given Narcan because she was able to ambulate to the cot. She is not alert oriented. She is arousable. She has no complaints. She states she has not used heroin in several months. Physical Examination: Vital signs noted. She not hypoxic. CO2 ranged between 51 and 55. HEENT exam is remarkable for pupils that are 2 mm in size. Heart is regular. Lungs are clear to auscultation. Abdomen is soft nontender. Track negrete noted with no evidence infection. Neuro exam is nonfocal. Test Results: Placed on CO 2 monitor which detected elevated level. Emergency Department Course and Treatment: Because of elevated CO2 level she received 0.4 mg of Narcan. She awoke. Her breathing improved. Her CO2 decreased to 40. Treatment Plan: Patient was observed for 45 minutes after administration of Narcan. She remains alert and oriented with a CO2 reading of 40. Disposition: Discharge to grandfather Impression: Depressed level of conscious with CO2 retention secondary to IV heroin use This note was generated with [employer] dictation software. It may contain incorrect words, spelling, and punctuation that were not noted in review of the chart prior to signing ED Disposition - Plan for ED Patient: Disposition: Home or Assisted Living Instructions: ED Overdose Opiate Referrals: Javi Steven MD [Primary Care Provider] - As Needed
== END 2018-07-02 23:43 | disposition home or self-care (01) ==
PROVIDERS: Emergency Provider Emergency Medicine; Family Provider Family Medicine; PCP Family Medicine
DX: F11.90 Opioid use, unspecified, uncomplicated (principal); Z72.0 Tobacco use
CPT/HCPCS: 96374; 99285; A4216; J2310

== ENCOUNTER 2018-07-10 16:33 | Inpatient (IN) | payer MEDICAID, SELFPAY ==
[2018-07-10 16:55] VITALS: BMI 24.9
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
[2018-07-10 17:06] VITALS: BP 104/56; PULSE 97; RESP 18; TEMP 36.7; O2SAT 100
[2018-07-10 18:28] LABS: Absolute Lymphocyte Count 1.66 X10^3/ul (0.83-4.51); Absolute Neutrophil Count 10.5 X10^3/uL (2.0-7.7); Basophil# 0.04 X10^3/uL; Basophil% 0.3 % (0-1); Eosinophils% 1.5 % (0-5); Hematocrit 43.9 % (37-47); Lymphocyte # 1.66 X10^3/ul (4.0); Lymphocyte % 12.5 % (19-41); Mean Corp Hgb Conc 31.9 g/gl (32-36); Mean Corpuscular Hgb 29.2 pg (27.0-32.0); Mean Corpuscular Volume 91.6 fL (81-99); Mean Platelet Vol. 8.8 fl (6.2-12.0); Monocyte# 0.83 X10^3/uL; Monocyte% 6.2 % (0-10); Neutrophil # 10.52 X10^3/uL (2.7-7.7); Neutrophil % 78.9 % (47-70); Platelet Count 356 K/mm3 (150-450); RBC Distribution Width SD 50.3 fl (35.1-43.9); Red Blood Count 4.79 M/mm3 (4.2-5.4); White Blood Count 13.3 K/mm3 (4.4-11.0)
[2018-07-10 18:30] LABS: POSITIVE COUNT NO; POSITIVE DIFFERENTIAL NO; POSITIVE MORPHOLOGY NO
[2018-07-10 18:42] LABS: AST(SGOT) 35 U/L (15-37); Alanine Aminotransfer ALT/SGPT 129 U/L (13-56); Alkaline Phosphatase 78 U/L (45-117); Anion Gap 9 (5-15); BUN 16 mg/dL (7-18); BUN/Creat Ratio 22.8 RATIO (10-20); Calcium,Total 9.2 mg/dL (8.5-10.1); Chloride 107 mmol/L (98-107); EST Glomerular Filtration Rate 110 mL/min (>60); Est Glom Filt Rate - Afr Amer 133 mL/min (>60); Globulin 3.9 g/dL (2.2-4.2); Glucose 80 mg/dL (74-106); Potassium 4.5 mmol/L (3.5-5.1); Protein, Total 7.9 g/dL (6.4-8.2); Sodium Level 141 mmol/L (136-145)
[2018-07-10 18:57] VITALS: BMI 24.9
[2018-07-10 18:57] LABS: Pregnancy, Serum, hCG Quali. NEGATIVE Negative (0-9 Nonpreg)
[2018-07-10 19:17] VITALS: BP 104/56; PULSE 97; RESP 18; TEMP 36.7
[2018-07-10] MEDS: Buprenorphine HCl 2 MG TAB.SUBL SL (19:19)
[2018-07-10] MEDS: Methocarbamol 750 MG Tablet PO (19:20)
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
[2018-07-10 22:00] VITALS: BP 124/75; PULSE 107; RESP 18; TEMP 36.7
[2018-07-11] VITALS (9 sets, daily range): BP systolic 91–107; BP diastolic 57–76; PULSE 73–87; RESP 12–16; TEMP 35.9–36.7; O2SAT 97–100
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
--- NOTE | 2018-07-11 00:47 | NURSING ---
2200 Patient in bed in no distress eyes closed. Sleeping with her cell phone in her hands.
[2018-07-11] MEDS: Buprenorphine HCl 2 MG TAB.SUBL SL ×3 (03:16→17:33)
--- NOTE | 2018-07-11 03:25 | NURSING ---
Patient very hungry ask for snacks each time he awakens. Cy crackers given. Pt states make sure i am awake for breakfast i dont want to sleep through it.
[2018-07-11] MEDS: cloNIDine HCl 0.1 MG Tablet PO ×2 (09:09→17:32)
[2018-07-11] MEDS: Methocarbamol 750 MG Tablet PO ×2 (09:10→17:32)
[2018-07-11 09:13] LABS: Amphetamine Urine VISTA NEGATIVE (<1000 ng/mL); Barbiturate Urine VISTA NEGATIVE (< 200 ng/mL); Benzodiazepine Urine VISTA POSITIVE (< 200 ng/mL); Cocaine Urine VISTA POSITIVE (< 300 ng/mL); Ecstacy Urine VISTA NEGATIVE (< 500 ng/mL); Methadone Urine VISTA NEGATIVE (< 300 ng/mL); PCP Urine VISTA NEGATIVE (< 25 ng/mL); THC Urine VISTA NEGATIVE (< 50 ng/mL); Vista UDS pH Range 5
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
[2018-07-11] MEDS: Acetaminophen 500 MG Tablet PO (11:41)
--- NOTE | 2018-07-11 11:57 | NURSING ---
Due to report from shift lab technician, and potential for unknown visitors for pt-MS2 unit on lockdown at time of shift change this AM ~0730. This precaution was taken after discussion with Tiffany, manager trade marketing MS, Franki senior underwriting assistant MS and Beth RN structural mill supervisor decision was made to protect patient and staff on unit. ICU, PCU, MS3, , Rasheed Jenkins, all notified of situation. Notified that police communications dispatcher may come to meet with patient later. At this time, notified by [place] social worker aide and MICHELE Hartley that patient is willing to speak with MICHELE PARHAM and officer at this time. PRASAD sears called ~1145- states she will be here in about 1 hour. Ben Sen- called and was notified- states that he will contact an officer, preferably female- per pt request, to come speak with pt. Pt had requested to be removed from directory upon admission. She states that she does have a select few people that would be ok to visit: Meli, grandma, Yohan, Grandpa, Luigi, legal (current mobile equipment servicer of 3yr old son) and Lisa, friend. She has two names that absolutely cannot visit pt: Tia and Cameron.
--- NOTE | 2018-07-11 12:29 | NURSING ---
campus security officer here speaking with pt at this time. Patient's gma arrived at this time and states that she has a new cell phone for pt- as pt dropped her's in [place] and it is all crackly. States she would like to visit with pt. Notified by this RN that patient is in a meeting at the moment and that it will be a little while before it will be completed. Cherry verbalized understanding and is waiting for meeting to be completed. PRASAD Kay RN arrived at this time and states she will bring her gear over and that procedure will be about 4 hours or so. Cherry states she is the volunteer that collects prayer requests and that she will wait.
--- NOTE | 2018-07-11 12:47 | NURSING ---
Luis Brushing Machine Operator in to speak with pt after being introduced by this RN. pt willing to speak with officer at this time.
[2018-07-11] MEDS: Pramipexole Di-HCl 0.25 MG Tablet PO (13:28)
[2018-07-11] MEDS: hydrOXYzine PAM 25 MG Capsule 50 MG PO (13:28)
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
--- NOTE | 2018-07-11 14:20 | NURSING ---
MICHELE Go called from - [facility] patient advocate is on way up
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
[2018-07-11] MEDS: Dicyclomine 10 MG Capsule 20 MG PO (17:32)
[2018-07-12 02:00] VITALS: BP 91/53; PULSE 97; RESP 16; TEMP 36.6
[2018-07-12] MEDS: Buprenorphine HCl 2 MG TAB.SUBL SL (02:52)
[2018-07-12 03:14] VITALS: BP 91/53; PULSE 69; RESP 16; TEMP 36.6; O2SAT 95
[2018-07-12 05:44] VITALS: BP 91/53; PULSE 69; RESP 16; TEMP 36.6
[2018-07-12 08:44] VITALS: BP 95/53; PULSE 73; RESP 16; TEMP 36.6
[2018-07-12] MEDS: Acetaminophen 500 MG Tablet PO (08:53)
[2018-07-12] MEDS: Pramipexole Di-HCl 0.25 MG Tablet PO (08:54)
[2018-07-12] MEDS: Methocarbamol 750 MG Tablet PO (08:54)
[2018-07-12] MEDS: hydrOXYzine PAM 25 MG Capsule 50 MG PO (08:54)
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
--- NOTE | 2018-07-12 10:42 | NURSING ---
Patient reported to MICHELE Gunter that she needed to get her ID today so that she can get into the [facility] and so that she has to leave. Notified by tri that she would be leaving against medical advice- pt verbalized understanding and signed AMA form. Alecia Short aware and was able to speak with pt and give information prior to d/c. Alecia Short called [facility] and they notified her that pt will not need ID. Patient gave Alecia Short multiple other excuses why she had to leave today. Unit lock down completed at time of pt voluntary discharge/departure from unit. Security, MS3, ICU, RN bakery machine mechanic supervisor, and MICHELE Kayconvention manager.
--- NOTE | 2018-07-12 10:44 | CASEMGMT ---
SW was not able to see pt prior to her leaving AMA. [facility] was able to make arrangements for pt prior to her discharge for a safe place to go. ZAY Woodard, FINAL DRESSING CUTTER
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
== END 2018-07-12 10:30 | disposition left against medical advice (07) | DRG 770 ==
PROVIDERS: Nurse Practitioner Family; Family Provider Family Medicine; PCP Family Medicine; Visit Provider Internal Medicine
DX: F11.23 Opioid dependence with withdrawal (principal); F17.210 Nicotine dependence, cigarettes, uncomplicated; Z59.0 Homelessness; F32.9 Major depressive disorder, single episode, unspecified; F41.9 Anxiety disorder, unspecified; F31.9 Bipolar disorder, unspecified; T76.21XA Adult sexual abuse, suspected, initial encounter; F13.10 Sedative, hypnotic or anxiolytic abuse, uncomplicated; F14.10 Cocaine abuse, uncomplicated
CPT/HCPCS: 36415; 80053; 80307; 84703; 85025

== ENCOUNTER 2018-11-01 08:59 | Emergency (ER) | payer MEDICAID, SELFPAY ==
[2018-11-01 09:00] VITALS: BP 124/88; PULSE 132; RESP 20; TEMP 37.1; O2SAT 100; BMI 25.6
--- NOTE | 2018-11-01 09:07 | EKG12_ITS ---
Test Reason : MENTAL HEALTH Blood Pressure : / mmHG Vent. Rate : 109 BPM Atrial Rate : 109 BPM P-R Int : 130 ms QRS Dur : 086 ms QT Int : 336 ms P-R-T Axes : 057 090 018 degrees QTc Int : 452 ms Sinus tachycardia Possible Left atrial enlargement Rightward axis Borderline ECG Confirmed by BENJAMIN LOBO, JANNA ([id number]), editor newspaper ERICA SIMMONS ([id number]) on 11/04/2018 1:41:49 PM Referred By: JACE/DEMARCUS Confirmed By:JANNA ALEXANDER MD
--- NOTE | 2018-11-01 09:09 | NURSING ---
CALLED [facility] FOR DR ARIAS
--- NOTE | 2018-11-01 09:12 | ED.DCSUM_ITS ---
- ER Visit Summary Date of Service: 11/01/18 Chief Complaint: Requesting detox History of Present Illness: The patient is a 23 F presents to the emergency department requesting detox. Patient has a history of IV heroin and methamphetamine abuse. She states that she uses daily. Her last use was 2 days ago. She states that she has been increasingly anxious, nauseated, having myalgias, and just feeling generally uncomfortable. She is also had some loose watery diarrhea. Patient was hospitalized over 3 months ago for detox. She states that she was unable to stay clean. She denies being suicidal homicidal. She denies any other significant medical history. Physical Examination: Vital signs reviewed General: Well-nourished, well-developed Head: Normocephalic, atraumatic Eyes: Pupils equal and reactive, extraocular muscles intact Neck, supple, no lymphadenopathy Heart: Regular tachycardic rate and rhythm Respiratory: No distress, clear bilaterally Abdomen: Soft, nontender, nondistended, no peritoneal signs Back: Nontender Extremities: Mild tenderness near the left antecubital fossa, no cellulitis, no edema, no cords Skin: Normal color no rash Neuro: Alert and oriented, no focal or lateralizing deficits Test Results: [] Emergency Department Course and Treatment: The patient presents with opiate withdrawal. Plan was to do a metabolic screen work-up and treat the patient's withdrawal symptoms. There was a difficult time establishing IV given the patient's history of IV drug abuse. She got increasingly agitated and said fuck this shit and has decided to leave AGAINST MEDICAL ADVICE. She states I am just going to go get high if you cannot help me. We attempted to treat the patient but she states that she does not want to stay no matter what. We did tell her if she changes her mind to come back. The patient can leave the emergency department prior to signing AMA paperwork. Treatment Plan: Disposition: AMA Impression: 1. Acute opiate withdrawal This note was generated with [employer] dictation software. It may contain incorrect words, spelling, and punctuation that were not noted in review of the chart prior to signing
--- NOTE | 2018-11-01 09:39 | NEWVISION ---
Addendum entered by Jyotsna Soto 11/01/18 09:52: Patient reported that she is frustrated with 'no one helping me regarding her addiction. Therefore her comment about hoping that he next shot would be her last was apparently culmination of her voiced frustrations. Patient had also reported that she has untreated mental health including bi-polar, anxiety and depression. Original Note: Dr Loyd requested Ray Arias see patient for possible admission into the service. Patient reported that she may be . Patient became very agitated and left the ED AMA due to difficulty with blood draw. As patient was exiting the ED patient reported to [facility] that she was upset over her vein being blown and hoped that her next shot is her last shot reportedly over her frustration, however reported that she does not want to continue to use drugs, quickly storming away from the hospital. Prior to her leaving [facility] had provided referral to come back to the ED when she had calmed down and or to go to [facility] for any other medical stabilization referral options, patient refused.
--- NOTE | 2018-11-01 09:41 | ED.RN ---
AFTER 4 ATTEMPTS MADE BY 2 RN'S TO OBTAIN IV AND BLOOD WORK, PATIENT STATES GET THIS SHIT OFF OF ME, I'M LEAVING HERE TO GO GET HIGH. PT WITNESSED WALKING OUT OF DEPARTMENT WITH STEADY GAIT.
== END 2018-11-01 09:42 | disposition home or self-care (01) ==
LOC: ED 09:18
PROVIDERS: Emergency Provider Emergency Medicine
DX: F11.23 Opioid dependence with withdrawal (principal); F15.10 Other stimulant abuse, uncomplicated; Z53.21 Procedure and treatment not carried out due to patient leaving prior to being seen by health care provider; Z72.0 Tobacco use
CPT/HCPCS: 93005; 99282; J7030

== ENCOUNTER 2018-12-28 02:54 | Emergency (ER) | payer MEDICAID, SELFPAY ==
[2018-12-17 13:53] VITALS: BMI 25.6
[2018-12-28 02:54] VITALS: BP 127/83
[2018-12-28 02:55] VITALS: PULSE 113; RESP 18; TEMP 36.1; O2SAT 99; BMI 30.6
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
--- NOTE | 2018-12-28 03:19 | ED.RN ---
PT GIVEN WRITTEN INSTRUCTIONS REGARDING DRUG OVERDOSE. EDUCATED NOT TO DO DRUGS. PT IV D/C AND COVERED WITH 2X2 GAUZE AND PAPER TAPE. PT SIGNS AMA PAPERWORK. VERBALIZES UNDERSTANDING AND DENIES ANY FURTHER QUESTIONS.
== END 2018-12-28 03:21 | disposition left against medical advice (07) ==
LOC: ED 03:14
PROVIDERS: Emergency Provider Emergency Medicine; Family Provider Internal Medicine; PCP Internal Medicine
DX: T40.601A Poisoning by unspecified narcotics, accidental (unintentional), initial encounter (principal); R07.89 Other chest pain; V49.40XA Driver injured in collision with unspecified motor vehicles in traffic accident, initial encounter; Y93.9 Activity, unspecified; Y92.9 Unspecified place or not applicable; F17.210 Nicotine dependence, cigarettes, uncomplicated
CPT/HCPCS: 99284

== ENCOUNTER 2018-12-29 23:39 | Emergency (ER) | payer MEDICAID, SELFPAY ==
[2018-12-28 02:55] VITALS: BMI 30.6
[2018-12-29 23:41] VITALS: BP 106/64; PULSE 98; RESP 15; TEMP 37.2; O2SAT 100; BMI 28.3
--- NOTE | 2018-12-29 23:52 | RAD_ITS ---
STUDY: X-RAY CHEST REASON FOR EXAM: Female, 23 years old. Status post CPR for heroin overdose. TECHNIQUE: PA and lateral views of the chest. COMPARISON: None. FINDINGS: The lungs are clear and expanded. There is no demonstrated pleural abnormality. Normal size heart. Normal mediastinum and slick. Normal visualized pulmonary arteries. Normal visualized aortic arch and descending thoracic aorta. Normal visualized thoracic spine. Normal visualized ribs, clavicles, and shoulders. There is no demonstrated abnormality of the visualized soft tissue structures of the upper abdomen. RAD/Chest PA and Lateral IMPRESSION: No radiographic evidence of acute cardiopulmonary disease. Electronically Signed: Lillian Willingham MD at 0:21 EDT , Service support ,
--- NOTE | 2018-12-29 23:52 | EKG12_ITS ---
Test Reason : CP Blood Pressure : / mmHG Vent. Rate : 091 BPM Atrial Rate : 091 BPM P-R Int : 162 ms QRS Dur : 090 ms QT Int : 356 ms P-R-T Axes : 064 086 032 degrees QTc Int : 437 ms Normal sinus rhythm Normal ECG Confirmed by BENJAMIN LOBO, JANNA ([id number]), writer editor MEHRAN DAVIS ([id number]) on 01/01/2019 11:49:27 AM Referred By: JACE Confirmed By:JANNA ALEXANDER MD
--- NOTE | 2018-12-30 00:10 | ED.DCSUM_ITS ---
- ER Visit Summary Date of Service: 12/30/18 Chief Complaint: Chest pain History of Present Illness: The patient is a 23 F who presents with chest pain that began 2 days ago. Patient states she overdosed on heroin and had chest compressions performed. Patient states her pain is worse with movement and deep breathing. Patient describes the pain as sharp and throbbing. Patient states pain is worse over the left parasternal area. Patient admits to a cough and some shortness of breath. Physical Examination: Vital signs are stable. Patient is afebrile. Patient is in no acute distress. Oral mucosa is pink and moist. Neck is supple. Trachea is midline. There is no JVD noted. Heart was regular rate and rhythm. Lungs are clear and equal bilaterally. Respiratory effort was limited secondary to pain. There is ecchymosis over the lower chest. There is no bony crepitance or step-off. Abdomen is soft. Bowel sounds are normal. There is mild lower abdominal tenderness. There is no rebound or guarding noted. Cranial nerves II through XII are intact. There are no focal motor or sensory deficits noted. Test Results: EKG showed normal sinus rhythm with a rate of 91. There are no acute ST or T wave changes. This was unchanged compared to previous EKG dated 11/01/2018. PA and lateral chest x-ray was obtained. There is no fracture or pneumothorax. There is no acute cardiopulmonary disease. Emergency Department Course and Treatment: Patient was given an injection of Toradol here. Patient was instructed to take Tylenol or ibuprofen as needed for pain. Patient was instructed to use ice to the area. Patient was instructed to follow-up with a primary care physician in 5 to 7 days. Patient understood and was agreeable with the plan. All questions were answered. Disposition: Discharge home Impression: Chest wall pain This note was generated with [employer] dictation software. It may contain incorrect words, spelling, and punctuation that were not noted in review of the chart prior to signing ED Disposition - Plan for ED Patient: Disposition: Home or Assisted Living Diagnosis: Chest wall pain Instructions: Chest Wall Contusion Referrals: David Nelson MD [Primary Care Provider] - 5-7 Days
[2018-12-30] MEDS: Ketorolac 60 MG/2 ML Vial IM (00:30)
[2018-12-30 00:51] VITALS: RESP 16
== END 2018-12-30 00:51 | disposition home or self-care (01) ==
PROVIDERS: Emergency Provider Emergency Medicine; Family Provider Internal Medicine; PCP Internal Medicine
DX: R07.89 Other chest pain (principal); R06.00 Dyspnea, unspecified; R05 Cough; R11.0 Nausea; M54.9 Dorsalgia, unspecified; R51 Headache; S20.219A Contusion of unspecified front wall of thorax, initial encounter; X58.XXXA Exposure to other specified factors, initial encounter; Y93.9 Activity, unspecified; Y92.9 Unspecified place or not applicable; F11.90 Opioid use, unspecified, uncomplicated; F17.200 Nicotine dependence, unspecified, uncomplicated
CPT/HCPCS: 71046; 93005; 96372; 99282

== ENCOUNTER → 2018-12-31 | Outpatient (CLI) | payer MEDICAID, SELFPAY ==
[2018-12-31 13:39] VITALS: BMI 29.0
[2019-01-01 12:32] LABS: Amphetamine Urine VISTA NEGATIVE (<1000 ng/mL); Barbiturate Urine VISTA NEGATIVE (< 200 ng/mL); Benzodiazepine Urine VISTA NEGATIVE (< 200 ng/mL); Cocaine Urine VISTA NEGATIVE (< 300 ng/mL); Ecstacy Urine VISTA NEGATIVE (< 500 ng/mL); Methadone Urine VISTA NEGATIVE (< 300 ng/mL); PCP Urine VISTA NEGATIVE (< 25 ng/mL); THC Urine VISTA NEGATIVE (< 50 ng/mL); Vista UDS pH Range 6
== END | disposition home or self-care (01) ==
LOC: BIMLAB 01-01 11:17
PROVIDERS: Family Provider Internal Medicine; PCP Internal Medicine; Visit Provider Nurse Practitioner Family
DX: F19.10 Other psychoactive substance abuse, uncomplicated (principal)
CPT/HCPCS: 80307

== ENCOUNTER 2019-05-16 17:20 | Observation (INO) | payer MEDICAID, SELFPAY ==
[2018-12-31 13:39] VITALS: BMI 29.0
[2019-05-16 17:21] VITALS: BP 119/82; PULSE 101; RESP 16; TEMP 36.1; O2SAT 100; BMI 27.4
--- NOTE | 2019-05-16 17:45 | ED.DCSUM_ITS ---
- ER Visit Summary Date of Service: 05/16/19 Chief Complaint: Substance abuse History of Present Illness: The patient is a 23 F who presents for detox from multiple substances. Patient admits to using meth, heroin, and fentanyl. Patient is here with her counselor from 180 to be admitted for detox. Patient states she has generalized aching in her muscles. Patient states she has pain in her abdomen and bilateral thighs. Patient admits to nausea and vomiting. Patient also admits to headache and general weakness. Patient denies any fevers or chills. Patient denies any chest pain or shortness of breath. Physical Examination: Vital signs are stable except for mild tachycardia of 101. Patient is afebrile. Patient is in no acute distress. Oral mucosa is pink and moist. Neck is supple. Trachea is midline. There is no JVD. Heart was regular rate and rhythm. Lungs are clear and equal bilaterally. Abdomen is soft. Bowel sounds are normal. There is no tenderness. Cranial nerves II through XII are intact. There are no focal motor or sensory deficits noted. Test Results: CBC was normal. Comprehensive metabolic profile shows slightly elevated AST and ALT. Total bilirubin and alk phos were normal. Urinalysis shows leukocyte esterase of 500 with positive nitrates. There were 10-25 white blood cells and 2+ bacteria. Urine tox screen was positive for amphetamines. Urine hCG was obtained and was negative. Emergency Department Course and Treatment: Patient was given IV fluids and a dose of clonidine here. Patient was given a dose of Bactrim in the emergency department. Case was discussed with the hospitalist. She will admit the patient to her service for inpatient detox. Patient understood and was agreeable with the plan. All questions were answered. Disposition: Admit to hospital Impression: 1. Substance abuse 2. Urinary tract infection This note was generated with [employer] dictation software. It may contain incorrect words, spelling, and punctuation that were not noted in review of the chart prior to signing ED Disposition - Plan for ED Patient: Disposition: Acute Care Hospital [facility] Diagnosis: Substance abuse, Urinary tract infection
[2019-05-16] MEDS: cloNIDine HCl 0.1 MG Tablet PO (18:23)
[2019-05-16] MEDS: 0.9% Normal Saline 1,000 ML 1000 ML IV (18:23)
[2019-05-16] MEDS: Loperamide 2 MG Capsule PO (19:04)
[2019-05-16 19:07] LABS: Absolute Lymphocyte Count 1.75 X10^3/uL (0.83-4.51); Absolute Neutrophil Count 5.3 X10^3/uL (2.0-7.7); Basophil# 0.03 X10^3/uL; Basophil% 0.4 % (0-1); Eosinophil# 0.18 X10^3/uL; Eosinophils% 2.3 % (0-5); Hematocrit 38.8 % (37-47); Hemoglobin 12.9 g/dL (12.0-15.0); Lymphocyte # 1.75 X10^3/ul (4.0); Lymphocyte % 22.3 % (19-41); Mean Corp Hgb Conc 33.2 g/dL (32-36); Mean Corpuscular Hgb 31.1 pg (27.0-32.0); Mean Corpuscular Volume 93.5 fL (81-99); Mean Platelet Vol. 8.9 fl (6.2-12.0); Monocyte% 7.6 % (0-10); NRBC Flagged by Analyzer 0 % (0-5); Neutrophil # 5.27 X10^3/uL (2.7-7.7); Neutrophil % 67.1 % (47-70); Platelet Count 219 K/mm3 (150-450); RBC Distribution Width CV 12.2 % (11.6-14.6); RBC Distribution Width SD 42.2 fl (35.1-43.9); Red Blood Count 4.15 M/mm3 (4.2-5.4); White Blood Count 7.9 K/mm3 (4.4-11.0)
[2019-05-16 19:20] LABS: Alcohol, Blood (Medical)-Serum < 3.0 mg/dL
[2019-05-16 19:22] LABS: Mucous, Urine 0 SEEN /hpf (<or=2+); Red Blood Cells-Urine 0 SEEN /hpf (0-5)
[2019-05-16 19:25] LABS: Color, Urine Yellow (Yellow); Glucose, Dipstick Normal (Normal); Ketone-Dipstick Negative (Negative); Leukocyte Esterase-Dipstick 500 /ul (Negative); Nitrite-Dipstick Positive (Negative); Occult Blood-Urine 25 /ul (Negative); Protein-Dipstick Negative (Negative); Specific Gravity, Urine 1.015 (1.002-1.030); Urine Bilirubin Dipstick Negative (Negative); Urine Clarity Sl. Cloudy (Clear); Urine Urobilinogen Normal (Normal)
--- NOTE | 2019-05-16 19:30 | ED.RN ---
lab called and blood drawn was not enough for CMP, they are not able to attempt any more. Spoke with Primary RN and made aware
[2019-05-16 19:36] LABS: Bacteria 2+ /hpf (None Seen); Squamous Epithelial Cells - UA 0-5 SEEN /hpf (5-10); White Blood Cells 10-25 SEEN /hpf (0-5)
[2019-05-16 19:38] LABS: Amphetamine Urine VISTA POSITIVE (<1000 ng/mL); Barbiturate Urine VISTA NEGATIVE (< 200 ng/mL); Benzodiazepine Urine VISTA NEGATIVE (< 200 ng/mL); Cocaine Urine VISTA NEGATIVE (< 300 ng/mL); Ecstacy Urine VISTA NEGATIVE (< 500 ng/mL); Methadone Urine VISTA NEGATIVE (< 300 ng/mL); PCP Urine VISTA NEGATIVE (< 25 ng/mL); THC Urine VISTA NEGATIVE (< 50 ng/mL); Vista UDS pH Range 6
[2019-05-16 20:36] VITALS: BP 103/70; PULSE 85; RESP 14; O2SAT 97
[2019-05-16] MEDS: Smz/Tmp Ds Tablet 1 TABLET PO (20:36)
[2019-05-16 20:37] LABS: ALB/GLOB Ratio 0.9 RATIO (0.9-2.4); AST(SGOT) 115 U/L (15-37); Alanine Aminotransfer ALT/SGPT 299 U/L (13-56); Albumin, Serum 2.9 g/dL (3.2-5.0); Alkaline Phosphatase 76 U/L (45-117); Anion Gap 4 (5-15); BUN 10 mg/dL (7-18); BUN/Creat Ratio 14.9 RATIO (10-20); Calcium,Total 8.8 mg/dL (8.5-10.1); Chloride 106 mmol/L (98-107); Creatinine, Serum 0.67 mg/dL (0.55-1.02); EST Glomerular Filtration Rate 115 mL/min (>60); Est Glom Filt Rate - Afr Amer 139 mL/min (>60); Estimated Creatinine Clearance 103.28 ml/min; Globulin 3.4 g/dL (2.2-4.2); Glucose 88 mg/dL (74-106); Protein, Total 6.3 g/dL (6.4-8.2); Sodium Level 137 mmol/L (136-145)
--- NOTE | 2019-05-16 20:45 | PCM.HP.STD ---
Problem List (1) Substance abuse Status: Chronic (2) Anxiety Status: Chronic (3) Alcohol abuse Status: Acute (4) Heroin withdrawal Status: Acute History of Present Illness Date of Admission: 05/16/19 Chief Complaint: Acute opioid withdrawal, request for medical stabilisation The patient is a 23 year old F with past medical history of substance use disorder -including heroin and fentanyl, last use fentanyl today, 1/2 g, chronic alcohol use disorder, chronic nicotine dependence who comes in with muscle cramps, nausea, vomiting, hot and cold flashes requesting for medical stabilization. Patient states she wants to be sober and clean. Vitals in the ED showed temperature 97F, heart rate 101, blood pressure 119/82, respiratory 16, SPO2 was 100% on room air. CBC D is unremarkable, BMP is unremarkable, AST is 115, ALT 299, ALP 76, albumin 2.9. Urinalysis was slightly cloudy, nitrite positive, leukocyte-low, WBC 10-25, urine test is negative. Urine drug screen was positive for amphetamines. Alcohol level was less than 3 Past Medical History Past Medical History (Chronic Problems): Chronic Problems (Last Reviewed 12/31/18 @ 13:39 by Annia Valentino) Substance abuse (Chronic) Anxiety (Chronic) H/O emotional problems (Chronic) Anemia (Chronic) Herpes (Chronic) Medical History: Medical History (Last Reviewed 12/31/18 @ 13:39 by Annia Valentino) H/O emotional problems (Chronic) Z86.59 Hives (Resolved) L50.9 UTI (urinary tract infection) (Resolved) N39.0 Bone fracture (Resolved) T14.8XXA Alcohol abuse (Acute) F10.10 Depression affecting (Acute) O99.340, F32.9 Positive urine drug screen (Resolved) R82.5 Anemia (Chronic) D64.9 Herpes (Chronic) B00.9 Tobacco abuse (Acute) Z72.0 complicated by subutex maintenance, antepartum (Acute) O99.320, F11.20 History of drug abuse (Resolved) Z87.898 Allergies diphenhydramine HCl [From Benadryl] Allergy (Verified 12/31/18 13:38) Hives Penicillins Allergy (Verified 12/31/18 13:38) Hives Home Medications: Ambulatory Orders Medication Instructions Recorded NK 12/28/18 Surgical History: Surgical History (Last Reviewed 12/31/18 @ 13:39 by Annia Valentino) History of Z98.891 04/16/18 Psychiatric History: Anxiety, Bipolar, Depression [employer] History: No pertinent [employer] history Lives: Alone Smoking Status: Current every day smoker Tobacco Use: Cigarettes Alcohol: Heavy Drugs: Heroin, Marijuana, - - fentanyl - *Family History Maternal Family History: Family History (Last Reviewed 12/31/18 @ 13:39 by Annia Valentino) Other Alcoholism Anxiety Arthritis Cancer Cervical cancer Depression Diabetes Mental disorder Ovarian cancer Psychiatric care Seizures Thyroid disorder History Items: Cancer - Tobacco consult, - - Alcoholism, seizure disorder Paternal Family History: Family History (Last Reviewed 12/31/18 @ 13:39 by Annia Valentino) Other Alcoholism Anxiety Arthritis Cancer Cervical cancer Depression Diabetes Mental disorder Ovarian cancer Psychiatric care Seizures Thyroid disorder History Items: - - Alcoholism Review of Systems Constitutional: Reports: Anorexia, Malaise, Weakness, Fatigue. Denies: Chills, Fever, Night Sweats, Weight Change Eyes: Denies: Blurred vision, Cataracts, Conjunctivae Inflammation, Pain, Redness, Vision Change HEENT: Denies: Difficulty Hearing, Difficulty Swallowing, Head Aches, Hearing Changes, Sinus Congestion, Sinus Drainage Cardiovascular: Denies: Chest Pain, Claudication, Chest Pressure, Orthopnea, Palpitations Respiratory: Denies: Cough, Hemoptysis, Shortness of Breath, Shortness of breath at rest, Shortness of breath upon exertion, Sputum production Gastrointestinal: Reports: Nausea. Denies: Abdominal Pain, Constipation, Diarrhea, Vomiting Genitourinary: Denies: Dysuria, Frequency, Incontinence, Nocturia Musculoskeletal: Reports: Muscle pain. Denies: Joint Pain, Joint stiffness, Joint swelling, Joint Tenderness Skin: Denies: Dryness, Pruritis, Rash, Wounds Neurological: Denies: Difficulty swallowing, Focal weakness, Numbness, Tingling Psychiatric: Denies: Anxiety, Depression, Homicidal Ideations, Suicidal Ideations Hematologic/ Lymphatic: Denies: Easy Bruising, Easy Bleeding VTE Information - Inpt Only VTE Present on Admission: No VTE Pharm Prophylaxis ordered?: Yes Patient Problems: Active and Suspected Problems (Last Reviewed 12/31/18 @ 13:39 by Annia Valentino) Urinary tract infection (Acute) - Physical Exam Vitals/I&O's: Vital Signs Temp Pulse Resp BP Pulse Ox 97 F L 85 14 103/70 97 05/16/19 17:21 05/16/19 20:36 05/16/19 20:36 05/16/19 20:36 05/16/19 20:36 Oxygen Delivery Method Room Air Weight: 68.039 kg Body Mass Index (BMI) 27.4 General: Alert, Oriented x3, Cooperative, No apparent distress, - - appears sleepy due to recent use of Fentanyl HEENT: Atraumatic, PERRLA, EOMI, Normocephalic Oral: Moist Mucosa Neck: Supple Lungs: Clear to auscultation, Normal air movement Cardiovascular: Regular rate, Regular Rhythm, Normal S1, Normal S2, No murmurs Abdomen: Bowel Sounds Present, Soft, Non Tender, Non-Distended, No Hepato-splenomegaly Extremities: No edema Skin: - - needle negrete all over the body. Musculoskeletal: No Tenderness to Palpation of Joints or Extremities Lymphatic: No Cervical, Supraclavicular, or Inguinal Adenopathy Neurological: Cranial nerves II-XII grossly intact, Neuro grossly intact Psych/Mental Status: Normal Affect, Appropriate Laboratory Results 05/16/19 18:53: WBC 7.9, RBC 4.15 L, Hgb 12.9, Hct 38.8, MCV 93.5, MCH 31.1, MCHC 33.2, RDW Std Deviation 42.2, RDW Coeff of Donnell 12.2, Plt Count 219, MPV 8.9, Immature Gran % (Auto) 0.300, Neut % (Auto) 67.1, Lymph % (Auto) 22.3, [place] % (Auto) 7.6, Eos % (Auto) 2.3, Baso % (Auto) 0.4, Absolute Neuts (auto) 5.3, Absolute Lymphs (auto) 1.75, Nucleated RBC % 0 05/16/19 18:53: Sodium Cancelled, Potassium Cancelled, Chloride Cancelled, Carbon Dioxide Cancelled, Anion Gap Cancelled, BUN Cancelled, Creatinine Cancelled, Estim Creat Clear Calc Cancelled, Est GFR (MDRD) Af Amer Cancelled, Est GFR (MDRD) Non-Af Cancelled, BUN/Creatinine Ratio Cancelled, Glucose Cancelled, Calcium Cancelled, Total Bilirubin Cancelled, AST Cancelled, ALT Cancelled, Alkaline Phosphatase Cancelled, Total Protein Cancelled, Albumin Cancelled, Globulin Cancelled, Albumin/Globulin Ratio Cancelled 05/16/19 18:53: Ethyl Alcohol < 3.0 05/16/19 19:15: Urine Color Yellow, Urine Clarity Sl. Cloudy, Urine pH 6.0, Ur Specific [place] 1.015, Urine Protein Negative, Urine Glucose (UA) Normal, Urine Ketones Negative, Urine Occult Blood 25 H, Urine Nitrite Positive H, Urine Bilirubin Negative, Urine Urobilinogen Normal, Ur Leukocyte Esterase 500 H, Urine RBC 0 SEEN, Urine WBC 10-25 SEEN, Ur Squamous Epith Cells 0-5 SEEN, Urine Bacteria 2+, Urine Mucus 0 SEEN 05/16/19 19:15: Urine Opiates Screen NEGATIVE, Urine Methadone Screen NEGATIVE, Ur Barbiturates Screen NEGATIVE, Ur Phencyclidine Scrn NEGATIVE, Ur Amphetamines Screen POSITIVE H, U Methamphetamin-MDMA NEGATIVE, U Benzodiazepines Scrn NEGATIVE, Urine Cocaine Screen NEGATIVE, U Cannabinoids Screen NEGATIVE, Ur Drug Screen Comment 05/16/19 20:02: Sodium 137, Potassium 4.0, Chloride 106, Carbon Dioxide 27.0, Anion Gap 4 L, BUN 10, Creatinine 0.67, Estim Creat Clear Calc 103.28, Est GFR (MDRD) Af Amer 139, Est GFR (MDRD) Non-Af 115, BUN/Creatinine Ratio 14.9, Glucose 88, Calcium 8.8, Total Bilirubin 0.30, AST 115 H, ALT 299 H, Alkaline Phosphatase 76, Total Protein 6.3 L, Albumin 2.9 L, Globulin 3.4, Albumin/Globulin Ratio 0.9 Assessment/Plan All Active Problems (Last Reviewed 12/31/18 @ 13:39 by Annia Vaelntino) Urinary tract infection (Acute) Hives (Resolved) UTI (urinary tract infection) (Resolved) Bone fracture (Resolved) Alcohol abuse (Acute) Heroin withdrawal (Acute) Depression affecting (Acute) Positive urine drug screen (Resolved) Tobacco abuse (Acute) complicated by subutex maintenance, antepartum (Acute) History of drug abuse (Resolved) Breech presentation of fetus (Resolved) related abdominal pain of lower quadrant, antepartum (Resolved) Vaginal discharge during (Resolved) 23 year old F with past medical history of substance use disorder -including heroin and fentanyl, last use fentanyl today, 1/2 g, chronic alcohol use disorder, chronic nicotine dependence who comes in with muscle cramps, nausea, vomiting, hot and cold flashes requesting for medical stabilization. 1. Acute opioid withdrawal, patient uses Heroin and fentanyl Will put on Subutex withdrawal 2. Chronic alcohol use disorder, will anticipate active withdrawal with Ativan using the CIWA protocol. Continue on Thiamine, folic acid, multivitamins 3. Elevated liver function test, h/o IV drug use Will check acute hepatitis panel, acetaminophen, salicylate levels, ultrasound of liver Repeat blood work in am 4. Nicotine dependence, on replacement 5. DVT PPx- early ambulation Code Visit Inpatient E&M: 62674 Init Hosp L2
[2019-05-16 21:26] LABS: Internal QC Validated? YES +Cl - CLEAR BKGD; Pregnancy, Urine Negative Negative
--- NOTE | 2019-05-16 22:12 | US_ITS ---
STUDY: ABDOMINAL ULTRASOUND - RIGHT UPPER QUADRANT REASON FOR VISIT: Female, 23 years old ELEV LIVER ENZYMES TECHNIQUE: Ultrasound evaluation of the right upper quadrant was performed with real-time and static workman-scale imaging. TECHNICAL QUALITY: Adequate. COMPARISON: None. FINDINGS: Liver: The liver measures 15.9 cm. There is normal echogenicity of the liver. The bile ducts are within normal limits. There is hepatic color flow. The direction of portal flow is hepatopetal. There is no demonstrated mass lesion. Gallbladder: Contracted gallbladder. The gallbladder wall measures 2 mm. There is a negative sonographic Graham''s sign. There is no pericholecystic fluid. There are no gallstones. Common Bile Duct (C.B.D.): The common bile duct measures 3 mm. Pancreas: Normal size of the head, body and tail of the pancreas. There is normal echogenicity of the pancreas. There is no demonstrated pancreatic mass or cyst. Right Kidney: Normal size of the right kidney. The right kidney measures 10.3 x 5.4 x 5.3 cm. Normal renal cortex. The right cortex measures 1.0 cm. There is a possible 11 x 13 mm cyst. There is no right hydronephrosis. US/Liver IMPRESSION: Probable right renal cyst. Electronically Signed: Vimal Luevano DO at 16:01 EST Tel [phone], Service support ,
[2019-05-16 22:14] VITALS: BMI 29.2
[2019-05-16 22:16] VITALS: BP 103/61; PULSE 89; RESP 20; TEMP 36.9; O2SAT 100
[2019-05-16] MEDS: traZODone 50 MG Tablet PO (23:36)
[2019-05-16] MEDS: Buprenorphine HCl 2 MG TAB.SUBL SL (23:36)
[2019-05-16] MEDS: LORazepam 1 MG Tablet PO (23:36)
[2019-05-17 02:06] LABS: Acetaminophen (Tylenol) Level < 2.0 ug/mL (10.0-30.0)
[2019-05-17 02:12] LABS: Salicylate < 1.7 mg/dL (2.8-20.0)
[2019-05-17 04:16] VITALS: BP 98/44; PULSE 96; RESP 16; TEMP 37; O2SAT 98
[2019-05-17] MEDS: Buprenorphine HCl 2 MG TAB.SUBL SL ×3 (06:15→23:00)
[2019-05-17 08:00] LABS: ALB/GLOB Ratio 0.8 RATIO (0.9-2.4); AST(SGOT) 114 U/L (15-37); Alanine Aminotransfer ALT/SGPT 283 U/L (13-56); Albumin, Serum 2.8 g/dL (3.2-5.0); Alkaline Phosphatase 76 U/L (45-117); Anion Gap 3 (5-15); BUN 8 mg/dL (7-18); BUN/Creat Ratio 11.3 RATIO (10-20); Calcium,Total 8.5 mg/dL (8.5-10.1); Chloride 106 mmol/L (98-107); Creatinine, Serum 0.71 mg/dL (0.55-1.02); EST Glomerular Filtration Rate 108 mL/min (>60); Est Glom Filt Rate - Afr Amer 131 mL/min (>60); Estimated Creatinine Clearance 97.47 ml/min; Globulin 3.3 g/dL (2.2-4.2); Glucose 82 mg/dL (74-106); Protein, Total 6.1 g/dL (6.4-8.2); Sodium Level 137 mmol/L (136-145)
--- NOTE | 2019-05-17 09:09 | NURSING ---
pt is in the shower at this time.
[2019-05-17] MEDS: Thiamine Hydrochloride 100 MG Tablet PO (10:15)
[2019-05-17 10:16] VITALS: BP 98/48; PULSE 93; RESP 16; TEMP 36.8; O2SAT 96
[2019-05-17] MEDS: Multivitamins,Therapeutic Tablet 1 TABLET PO (10:16)
[2019-05-17] MEDS: Folic Acid 1 MG Tablet PO (10:16)
[2019-05-17] MEDS: Pramipexole Di-HCl 0.25 MG Tablet PO (10:22)
[2019-05-17] MEDS: LORazepam 1 MG Tablet PO ×2 (10:22→18:04)
[2019-05-17] MEDS: Loperamide 2 MG Capsule PO (10:22)
[2019-05-17] MEDS: Methocarbamol 750 MG Tablet PO ×2 (10:22→18:04)
--- NOTE | 2019-05-17 14:22 | PN_ITS ---
<Rod Lin - Last Filed: 05/17/19 14:22> Patient Problems: Active and Suspected Problems (Last Reviewed 12/31/18 @ 13:39 by Annia Valentino) Urinary tract infection (Acute) Reason for Visit: opiate withdrawal Subjective: Today increased diarrhea and nausea. No vomiting. No fever/chills. No swelling/erythema/drainage from injection sites. Somewhat anxious. No tremor. She has never before been tested for hepatitis or HIV. Vitals/I&O's: Vital Signs Temp Pulse Resp BP Pulse Ox 98.2 F 93 16 98/48 L 96 05/17/19 10:16 05/17/19 10:16 05/17/19 10:16 05/17/19 10:16 05/17/19 10:16 Oxygen Delivery Method Room Air Weight: 159 lb 13.362 oz Body Mass Index (BMI) 29.2 Intake and Output for Last 24 Hours 05/15/19 05/16/19 05/17/19 23:59 23:59 23:59 Intake Total 1000 / 1240 240 / 240 Balance 1000 / 1240 240 / 240 General: Alert, Oriented x3, Cooperative HEENT: Atraumatic, PERRLA, EOMI, Normocephalic Neck: Supple, No JVD, Negative Carotid Bruits Lungs: Clear to auscultation, Normal air movement Cardiovascular: Regular rate, No murmurs Abdomen: Bowel Sounds Present, Soft, Non Tender Extremities: No edema, Capillary Refill Less than 3 Seconds Skin: No rashes, No breakdown Musculoskeletal: No Tenderness to Palpation of Joints or Extremities Neurological: Cranial nerves II-XII grossly intact Psych/Mental Status: Normal Affect, Appropriate, Alert and oriented to time, p lace, person, mood and affect Laboratory Results 05/16/19 18:53: WBC 7.9, RBC 4.15 L, Hgb 12.9, Hct 38.8, MCV 93.5, MCH 31.1, MCHC 33.2, RDW Std Deviation 42.2, RDW Coeff of Donnell 12.2, Plt Count 219, MPV 8.9, Immature Gran % (Auto) 0.300, Neut % (Auto) 67.1, Lymph % (Auto) 22.3, [place] % (Auto) 7.6, Eos % (Auto) 2.3, Baso % (Auto) 0.4, Absolute Neuts (auto) 5.3, Absolute Lymphs (auto) 1.75, Nucleated RBC % 0 05/16/19 18:53: Sodium Cancelled, Potassium Cancelled, Chloride Cancelled, Carbon Dioxide Cancelled, Anion Gap Cancelled, BUN Cancelled, Creatinine Cancelled, Estim Creat Clear Calc Cancelled, Est GFR (MDRD) Af Amer Cancelled, Est GFR (MDRD) Non-Af Cancelled, BUN/Creatinine Ratio Cancelled, Glucose Cancelled, Calcium Cancelled, Total Bilirubin Cancelled, AST Cancelled, ALT Cancelled, Alkaline Phosphatase Cancelled, Total Protein Cancelled, Albumin Cancelled, Globulin Cancelled, Albumin/Globulin Ratio Cancelled 05/16/19 18:53: Ethyl Alcohol < 3.0 05/16/19 19:15: Urine Color Yellow, Urine Clarity Sl. Cloudy, Urine pH 6.0, Ur Specific [place] 1.015, Urine Protein Negative, Urine Glucose (UA) Normal, Urine Ketones Negative, Urine Occult Blood 25 H, Urine Nitrite Positive H, Urine Bilirubin Negative, Urine Urobilinogen Normal, Ur Leukocyte Esterase 500 H, Urine RBC 0 SEEN, Urine WBC 10-25 SEEN, Ur Squamous Epith Cells 0-5 SEEN, Urine Bacteria 2+, Urine Mucus 0 SEEN 05/16/19 19:15: Urine Opiates Screen NEGATIVE, Urine Methadone Screen NEGATIVE, Ur Barbiturates Screen NEGATIVE, Ur Phencyclidine Scrn NEGATIVE, Ur Amphetamines Screen POSITIVE H, U Methamphetamin-MDMA NEGATIVE, U Benzodiazepines Scrn NEGATIVE, Urine Cocaine Screen NEGATIVE, U Cannabinoids Screen NEGATIVE, Ur Drug Screen Comment 05/16/19 19:15: Urine Test Negative 05/16/19 20:02: Sodium 137, Potassium 4.0, Chloride 106, Carbon Dioxide 27.0, Anion Gap 4 L, BUN 10, Creatinine 0.67, Estim Creat Clear Calc 103.28, Est GFR (MDRD) Af Amer 139, Est GFR (MDRD) Non-Af 115, BUN/Creatinine Ratio 14.9, Glucose 88, Calcium 8.8, Total Bilirubin 0.30, AST 115 H, ALT 299 H, Alkaline Phosphatase 76, Total Protein 6.3 L, Albumin 2.9 L, Globulin 3.4, Albumin/Globulin Ratio 0.9 05/17/19 01:21: Acetaminophen < 2.0 L 05/17/19 01:21: Salicylates < 1.7 L 05/17/19 06:34: Hepatitis A IgM Ab Pending, Hep Bs Antigen Pending, Hep B Core IgM Ab Pending, Hepatitis C Ab (EIA) Pending 05/17/19 06:34: Sodium 137, Potassium 4.0, Chloride 106, Carbon Dioxide 28.0, Anion Gap 3 L, BUN 8, Creatinine 0.71, Estim Creat Clear Calc 97.47, Est GFR (MDRD) Af Amer 131, Est GFR (MDRD) Non-Af 108, BUN/Creatinine Ratio 11.3, Glucose 82, Calcium 8.5, Total Bilirubin 0.50, AST 114 H, ALT 283 H, Alkaline Phosphatase 76, Total Protein 6.1 L, Albumin 2.8 L, Globulin 3.3, Albumin/Globulin Ratio 0.8 L Current Medications Acetaminophen (Tylenol) 500 mg PO Q4H PRN PRN PRN Reason: Temp > 100.4 F Al Hydroxide/Mg Hydroxide (Mylanta Ii) 30 ml PO Q6H PRN PRN PRN Reason: dyspesia Bisacodyl (Dulcolax) 10 mg RECTAL DAILY PRN PRN Reason: Constipation Buprenorphine HCl (Buprenorphine Hcl) 4 mg SL Q8H JEB; Taper Stop: 05/20/19 02:29 Last Admin: 05/17/19 06:15 Dose: 4 mg Documented by: Clonidine (Catapres) 0.1 mg PO Q2H PRN PRN PRN Reason: Hot/Cold Sweats or Anxiety Dicyclomine HCl (Bentyl) 20 mg PO Q6H PRN PRN PRN Reason: Abdominal Discomfort Folic Acid (Folic Acid) 1 mg PO DAILYCM JEB Stop: 05/19/19 08:01 Last Admin: 05/17/19 10:16 Dose: 1 mg Documented by: Ibuprofen (Motrin) 600 mg PO Q8H PRN PRN PRN Reason: Pain Score 1-10/10 Loperamide HCl (Imodium) 2 - 4 mg PO UD PRN PRN Reason: LOOSE STOOLS Last Admin: 05/17/19 10:22 Dose: 4 mg Documented by: Lorazepam (Ativan) 2 mg IV X1 PRN PRN Reason: Seizure Lorazepam (Ativan) 1 mg PO Q4H JEB; Taper Stop: 05/20/19 02:29 Last Admin: 05/17/19 10:22 Dose: 1 mg Documented by: Methocarbamol (Methocarbamol) 750 mg PO Q6H PRN PRN PRN Reason: Muscle Aches Last Admin: 05/17/19 10:22 Dose: 750 mg Documented by: Multivitamins (Multivitamin) [facility] Last Admin: 05/17/19 10:16 Dose: 1 tablet Documented by: Nicotine (Nicoderm Cq (Pbkc)) 21 mg TRANSDERM. DAILY [facility] Last Admin: 05/17/19 10:16 Dose: 21 mg Documented by: Ondansetron HCl (Zofran Odt) 4 mg PO Q6H PRN PRN PRN Reason: NAUSEA Pramipexole Dihydrochloride (Mirapex) 0.25 mg PO Q12H PRN PRN PRN Reason: Restless Legs Last Admin: 05/17/19 10:22 Dose: 0.25 mg Documented by: Senna (Senokot) 1 tablet PO QHS PRN PRN Reason: Constipation Thiamine HCl (Vitamin B1) 100 mg PO [facility] Stop: 05/19/19 08:01 Last Admin: 05/17/19 10:15 Dose: 100 mg Documented by: Trazodone HCl (Desyrel) 50 mg PO QHS [facility] Last Admin: 05/16/19 23:36 Dose: 50 mg Documented by: Medical Necessity - Tobacco Use Smoking Status: Current every day smoker Tobacco Use: Cigarettes Assessment/Plan All Active Problems (Last Reviewed 12/31/18 @ 13:39 by Annia Valentino) Urinary tract infection (Acute) Hives (Resolved) UTI (urinary tract infection) (Resolved) Bone fracture (Resolved) Alcohol abuse (Acute) Heroin withdrawal (Acute) Depression affecting (Acute) Positive urine drug screen (Resolved) Tobacco abuse (Acute) complicated by subutex maintenance, antepartum (Acute) History of drug abuse (Resolved) Breech presentation of fetus (Resolved) related abdominal pain of lower quadrant, antepartum (Resolved) Vaginal discharge during (Resolved) 1. Acute opiate withdrawal - injects heroin/fentanyl. Today withdrawal marked by nausea and diarrhea. Hep panel pending, added Hiv panel. LFTs mildly elevated. She also admits to using meth. Liver US pending. 2. Alcohol abuse - she states she only drinks when she is in heroin withdrawal. PRN ativan. CIWA protocl. Folate/thiamine. 3. Nicotine abuse - patch DVT ppx: early ambulation DC planning: follow up 180 program This patient was seen by Rod Lin PA-C under the supervision of Dr. Rossi <Rashaun Rossi F - Last Filed: 05/17/19 16:42> Vitals/I&O's: Vital Signs Temp Pulse Resp BP Pulse Ox 98.2 F 93 16 98/48 L 96 05/17/19 10:16 05/17/19 10:16 05/17/19 10:16 05/17/19 10:16 05/17/19 10:16 Oxygen Delivery Method Room Air Weight: 159 lb 13.362 oz Body Mass Index (BMI) 29.2 Intake and Output for Last 24 Hours 05/15/19 05/16/19 05/17/19 23:59 23:59 23:59 Intake Total 1000 / 1240 240 / 240 Balance 1000 / 1240 240 / 240 Laboratory Results 05/16/19 01:21: HIV 1&2 Antibody Pending 05/16/19 18:53: WBC 7.9, RBC 4.15 L, Hgb 12.9, Hct 38.8, MCV 93.5, MCH 31.1, MCHC 33.2, RDW Std Deviation 42.2, RDW Coeff of Donnell 12.2, Plt Count 219, MPV 8.9, Immature Gran % (Auto) 0.300, Neut % (Auto) 67.1, Lymph % (Auto) 22.3, [place] % (Auto) 7.6, Eos % (Auto) 2.3, Baso % (Auto) 0.4, Absolute Neuts (auto) 5.3, Absolute Lymphs (auto) 1.75, Nucleated RBC % 0 05/16/19 18:53: Sodium Cancelled, Potassium Cancelled, Chloride Cancelled, C arbon Dioxide Cancelled, Anion Gap Cancelled, BUN Cancelled, Creatinine Cancelled, Estim Creat Clear Calc Cancelled, Est GFR (MDRD) Af Amer Cancelled, Est GFR (MDRD) Non-Af Cancelled, BUN/Creatinine Ratio Cancelled, Glucose Cancelled, Calcium Cancelled, Total Bilirubin Cancelled, AST Cancelled, ALT Cancelled, Alkaline Phosphatase Cancelled, Total Protein Cancelled, Albumin Cancelled, Globulin Cancelled, Albumin/Globulin Ratio Cancelled 05/16/19 18:53: Ethyl Alcohol < 3.0 05/16/19 19:15: Urine Color Yellow, Urine Clarity Sl. Cloudy, Urine pH 6.0, Ur Specific [place] 1.015, Urine Protein Negative, Urine Glucose (UA) Normal, Urine Ketones Negative, Urine Occult Blood 25 H, Urine Nitrite Positive H, Urine Bilirubin Negative, Urine Urobilinogen Normal, Ur Leukocyte Esterase 500 H, Urine RBC 0 SEEN, Urine WBC 10-25 SEEN, Ur Squamous Epith Cells 0-5 SEEN, Urine Bacteria 2+, Urine Mucus 0 SEEN 05/16/19 19:15: Urine Opiates Screen NEGATIVE, Urine Methadone Screen NEGATIVE, Ur Barbiturates Screen NEGATIVE, Ur Phencyclidine Scrn NEGATIVE, Ur Amphetamines Screen POSITIVE H, U Methamphetamin-MDMA NEGATIVE, U Benzodiazepines Scrn NEGATIVE, Urine Cocaine Screen NEGATIVE, U Cannabinoids Screen NEGATIVE, Ur Drug Screen Comment 05/16/19 19:15: Urine Test Negative 05/16/19 20:02: Sodium 137, Potassium 4.0, Chloride 106, Carbon Dioxide 27.0, Anion Gap 4 L, BUN 10, Creatinine 0.67, Estim Creat Clear Calc 103.28, Est GFR (MDRD) Af Amer 139, Est GFR (MDRD) Non-Af 115, BUN/Creatinine Ratio 14.9, Glucose 88, Calcium 8.8, Total Bilirubin 0.30, AST 115 H, ALT 299 H, Alkaline Phosphatase 76, Total Protein 6.3 L, Albumin 2.9 L, Globulin 3.4, Albumin/Globulin Ratio 0.9 05/17/19 01:21: Acetaminophen < 2.0 L 05/17/19 01:21: Salicylates < 1.7 L 05/17/19 06:34: Hepatitis A IgM Ab Pending, Hep Bs Antigen Pending, Hep B Core IgM Ab Pending, Hepatitis C Ab (EIA) Pending 05/17/19 06:34: Sodium 137, Potassium 4.0, Chloride 106, Carbon Dioxide 28.0, Anion Gap 3 L, BUN 8, Creatinine 0.71, Estim Creat Clear Calc 97.47, Est GFR (MDRD) Af Amer 131, Est GFR (MDRD) Non-Af 108, BUN/Creatinine Ratio 11.3, Glucose 82, Calcium 8.5, Total Bilirubin 0.50, AST 114 H, ALT 283 H, Alkaline Phosphatase 76, Total Protein 6.1 L, Albumin 2.8 L, Globulin 3.3, Albumin/Gl obulin Ratio 0.8 L Current Medications Acetaminophen (Tylenol) 500 mg PO Q4H PRN PRN PRN Reason: Temp > 100.4 F Al Hydroxide/Mg Hydroxide (Mylanta Ii) 30 ml PO Q6H PRN PRN PRN Reason: dyspesia Bisacodyl (Dulcolax) 10 mg RECTAL DAILY PRN PRN Reason: Constipation Buprenorphine HCl (Buprenorphine Hcl) 4 mg SL Q8H JEB; Taper Stop: 05/20/19 02:29 Last Admin: 05/17/19 16:09 Dose: 4 mg Documented by: Clonidine (Catapres) 0.1 mg PO Q2H PRN PRN PRN Reason: Hot/Cold Sweats or Anxiety Dicyclomine HCl (Bentyl) 20 mg PO Q6H PRN PRN PRN Reason: Abdominal Discomfort Folic Acid (Folic Acid) 1 mg PO [facility] Stop: 05/19/19 08:01 Last Admin: 05/17/19 10:16 Dose: 1 mg Documented by: Ibuprofen (Motrin) 600 mg PO Q8H PRN PRN PRN Reason: Pain Score 1-10/10 Loperamide HCl (Imodium) 2 - 4 mg PO UD PRN PRN Reason: LOOSE STOOLS Last Admin: 05/17/19 10:22 Dose: 4 mg Documented by: Lorazepam (Ativan) 2 mg IV X1 PRN PRN Reason: Seizure Lorazepam (Ativan) 1 mg PO Q4H [facility]; Taper Stop: 05/20/19 02:29 Last Admin: 05/17/19 16:08 Dose: Not Given Documented by: Methocarbamol (Methocarbamol) 750 mg PO Q6H PRN PRN PRN Reason: Muscle Aches Last Admin: 05/17/19 10:22 Dose: 750 mg Documented by: Multivitamins (Multivitamin) 1 tablet PO DAILYHA[facility] Last Admin: 05/17/19 10:16 Dose: 1 tablet Documented by: Nicotine (Nicoderm Cq (Pbkc)) 21 mg TRANSDERM. DAILY [facility] Last Admin: 05/17/19 10:16 Dose: 21 mg Documented by: Ondansetron HCl (Zofran Odt) 4 mg PO Q6H PRN PRN PRN Reason: NAUSEA Pramipexole Dihydrochloride (Mirapex) 0.25 mg PO Q12H PRN PRN PRN Reason: Restless Legs Last Admin: 05/17/19 10:22 Dose: 0.25 mg Documented by: Senna (Senokot) 1 tablet PO QHS PRN PRN Reason: Constipation Thiamine HCl (Vitamin B1) 100 mg PO DAILYCM [facility] Stop: 05/19/19 08:01 Last Admin: 05/17/19 10:15 Dose: 100 mg Documented by: Trazodone HCl (Desyrel) 50 mg PO QHS [facility] Last Admin: 05/16/19 23:36 Dose: 50 mg Documented by: Code Visit Addendum: Dr. Rossi I personally examined the patient and reviewed the chart. I agree with the above. 23-year-old female going through both heroin and alcohol withdrawal. She says that she only drinks whenever she is in heroin withdrawal. She is resting comfortably this morning however she did develop some nausea as well as diarrhea which is currently being treated, likely secondary to her withdrawal. Liver ultrasound as well as hepatitis and HIV is pending. Continue with both the opiate and alcohol withdrawal protocols. Inpatient E&M: 30919 Subs Hosp L2
--- NOTE | 2019-05-17 16:15 | CASEMGMT ---
SOCIAL WORK MET WITH PATIENT IN ROOM. INTRODUCED ROLE AND REASON FOR REFERRAL. PATIENT ADMITTED FOR OPIOID WITHDRAWAL. 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 PATIENT STATES [facility] TO BE CONTACTED UPON D/C PLAN IS FOR [facility]. PLAN: CONTACT [facility] [employer] UPON D/C. YASHIRA SCOTT, IRRIGATOR OVERHEAD.
[2019-05-17 17:56] VITALS: BP 110/71; PULSE 92; RESP 16; TEMP 36.8; O2SAT 97
[2019-05-17] MEDS: Dicyclomine 10 MG Capsule 20 MG PO (18:04)
[2019-05-17 23:00] VITALS: BP 106/56; PULSE 91; RESP 16; TEMP 36.6; O2SAT 98
[2019-05-17] MEDS: Nitrofurantoin Macrocrystals 100 MG Capsule PO (23:00)
[2019-05-17] MEDS: traZODone 50 MG Tablet PO (23:00)
[2019-05-17 23:23] VITALS: RESP 16
[2019-05-18] MEDS: LORazepam 1 MG Tablet PO ×4 (00:59→18:36)
[2019-05-18 04:47] VITALS: BP 96/51; PULSE 60; RESP 16; TEMP 36.8; O2SAT 100
[2019-05-18] MEDS: Buprenorphine HCl 2 MG TAB.SUBL SL ×2 (06:28→14:34)
[2019-05-18] MEDS: Loperamide 2 MG Capsule PO ×2 (06:38→16:55)
[2019-05-18] MEDS: Methocarbamol 750 MG Tablet PO (06:39)
[2019-05-18] MEDS: Dicyclomine 10 MG Capsule 20 MG PO ×2 (06:39→12:38)
[2019-05-18] MEDS: Pramipexole Di-HCl 0.25 MG Tablet PO (06:39)
[2019-05-18] MEDS: Thiamine Hydrochloride 100 MG Tablet PO (08:36)
[2019-05-18] MEDS: Folic Acid 1 MG Tablet PO (08:36)
[2019-05-18] MEDS: Multivitamins,Therapeutic Tablet 1 TABLET PO (08:36)
[2019-05-18 10:45] VITALS: BP 93/58; PULSE 96; RESP 20; TEMP 36.6; O2SAT 95
[2019-05-18 11:00] VITALS: PULSE 96
[2019-05-18] MEDS: Nitrofurantoin Macrocrystals 100 MG Capsule PO ×2 (11:12→22:17)
--- NOTE | 2019-05-18 11:17 | NURSING ---
1115 pt up to take a shower. pt independent and encouraged to use call light if help needed. Ayad Ruano RN
--- NOTE | 2019-05-18 11:53 | PN_ITS ---
<Rod Lin - Last Filed: 05/18/19 11:53> Patient Problems: Active and Suspected Problems (Last Reviewed 12/31/18 @ 13:39 by Annia Valentino) Urinary tract infection (Acute) Reason for Visit: heroin withdrawal Subjective: pt resting comfortably in bed. c/o restless legs and lower back pain. No fever/chills. No abd pain. No tremor. Vitals/I&O's: Vital Signs Temp Pulse Resp BP Pulse Ox 98 F 96 20 H 93/58 L 95 05/18/19 10:45 05/18/19 11:00 05/18/19 10:45 05/18/19 10:45 05/18/19 10:45 Oxygen Delivery Method Room Air Weight: 159 lb 13.362 oz Body Mass Index (BMI) 29.2 Intake and Output for Last 24 Hours 05/16/19 05/17/19 05/18/19 23:59 23:59 23:59 Intake Total 1000 / 1240 800 / 1800 1200 / 1200 Balance 1000 / 1240 800 / 1800 1200 / 1200 General: Alert, Oriented x3, Cooperative HEENT: Atraumatic, PERRLA, EOMI, Normocephalic Neck: Supple, No JVD, Negative Carotid Bruits Lungs: Clear to auscultation, Normal air movement Cardiovascular: Regular rate, No murmurs Abdomen: Bowel Sounds Present, Soft, Non Tender Extremities: No edema, Capillary Refill Less than 3 Seconds Skin: No rashes, No breakdown Musculoskeletal: No Tenderness to Palpation of Joints or Extremities Neurological: Cranial nerves II-XII grossly intact Psych/Mental Status: Normal Affect, Appropriate, Alert and oriented to time, place, person, mood and affect Laboratory Results 05/17/19 01:21: HIV 1&2 Antibody Pending Current Medications Acetaminophen (Tylenol) 500 mg PO Q4H PRN PRN PRN Reason: Temp > 100.4 F Al Hydroxide/Mg Hydroxide (Mylanta Ii) 30 ml PO Q6H PRN PRN PRN Reason: dyspesia Bisacodyl (Dulcolax) 10 mg RECTAL DAILY PRN PRN Reason: Constipation Buprenorphine HCl (Buprenorphine Hcl) 2 mg SL Q8H [facility]; Taper Stop: 05/20/19 02:29 Last Admin: 05/18/19 06:28 Dose: 2 mg Documented by: Clonidine (Catapres) 0.1 mg PO Q2H PRN PRN PRN Reason: Hot/Cold Sweats or Anxiety Dicyclomine HCl (Bentyl) 20 mg PO Q6H PRN PRN PRN Reason: Abdominal Discomfort Last Admin: 05/18/19 06:39 Dose: 20 mg Documented by: F[facility] ([facility]) [facility] Stop: 05/19/19 08:01 Last Admin: 05/18/19 08:36 Dose: 1 mg Documented by: Ibuprofen (Motrin) 600 mg PO Q8H PRN PRN PRN Reason: Pain Score 1-10/10 Loperamide HCl (Imodium) 2 - 4 mg PO UD PRN PRN Reason: LOOSE STOOLS Last Admin: 05/18/19 06:38 Dose: 2 mg Documented by: Lorazepam (Ativan) 2 mg IV X1 PRN PRN Reason: Seizure Lorazepam (Ativan) 1 mg PO Q6H [facility]; Taper Stop: 05/20/19 02:29 Last Admin: 05/18/19 06:27 Dose: 1 mg Documented by: Methocarbamol (Methocarbamol) 750 mg PO Q6H PRN PRN PRN Reason: Muscle Aches Last Admin: 05/18/19 06:39 Dose: 750 mg Documented by: Multivitamins (Multivitamin) [facility] Last Admin: 05/18/19 08:36 Dose: 1 tablet Documented by: Nicotine (Nicoderm Cq (Pbkc)) 21 mg TRANSDERM. DAILY [facility] Last Admin: 05/18/19 11:11 Dose: 21 mg Documented by: Nitrofurantoin Macrocrystals (Macrobid) 100 mg PO BID [facility] Stop: 05/22/19 10:01 Last Admin: 05/18/19 11:12 Dose: 100 mg Documented by: Ondansetron HCl (Zofran Odt) 4 mg PO Q6H PRN PRN PRN Reason: NAUSEA Pramipexole Dihydrochloride (Mirapex) 0.25 mg PO Q12H PRN PRN PRN Reason: Restless Legs Last Admin: 05/18/19 06:39 Dose: 0.25 mg Documented by: Senna (Senokot) 1 tablet PO QHS PRN PRN Reason: Constipation Thiamine HCl (Vitamin B1) [facility] Stop: 05/19/19 08:01 Last Admin: 05/18/19 08:36 Dose: 100 mg Documented by: Trazodone HCl (Desyrel) 50 mg PO QHS [facility] Last Admin: 05/17/19 23:00 Dose: 50 mg Documented by: STROKE Vital Signs/Narrative: Vital Signs Temp Pulse Resp BP Pulse Ox 05/18/19 11:00 96 05/18/19 10:45 98 F 96 20 H 93/58 L 95 Medical Necessity - Tobacco Use Smoking Status: Current every day smoker Tobacco Use: Cigarettes Assessment/Plan All Active Problems (Last Reviewed 12/31/18 @ 13:39 by Annia Valentino) Urinary tract infection (Acute) Hives (Resolved) UTI (urinary tract infection) (Resolved) Bone fracture (Resolved) Alcohol abuse (Acute) Heroin withdrawal (Acute) Depression affecting (Acute) Positive urine drug screen (Resolved) Tobacco abuse (Acute) complicated by subutex maintenance, antepartum (Acute) History of drug abuse (Resolved) Breech presentation of fetus (Resolved) related abdominal pain of lower quadrant, antepartum (Resolved) Vaginal discharge during (Resolved) 1. Acute opiate withdrawal - injects heroin/fentanyl. Today withdrawal marked by RLS and low back pain. Hep and Hiv panel. LFTs mildly elevated. She also admits to using meth. Liver US pending. 2. Alcohol abuse - she states she only drinks when she is in heroin withdrawal. PRN ativan. CIWA protocl. Folate/thiamine. 3. Nicotine abuse - patch DVT ppx: early ambulation DC planning: follow up [facility] program This patient was seen by Rod Lin PA-C under the supervision of Dr. Rossi <Rashaun Rossi F - Last Filed: 05/18/19 14:23> Vitals/I&O's: Vital Signs Temp Pulse Resp BP Pulse Ox 98 F 96 20 H 93/58 L 95 05/18/19 10:45 05/18/19 11:00 05/18/19 10:45 05/18/19 10:45 05/18/19 10:45 Oxygen Delivery Method Room Air Weight: 159 lb 13.362 oz Body Mass Index (BMI) 29.2 Intake and Output for Last 24 Hours 05/16/19 05/17/1920 23:59 23:59 23:59 Intake Total 1000 / 1240 800 / 1800 1600 / 1600 Balance 1000 / 1240 800 / 1800 1600 / 1600 Microbiology Past 72 Hours 05/17/19 23:10 Interface Orders Urine Culture - Preliminary Presumptive E. coli Laboratory Results 05/17/19 01:21: HIV 1&2 Antibody Pending Current Medications Acetaminophen (Tylenol) 500 mg PO Q4H PRN PRN PRN Reason: Temp > 100.4 F Al Hydroxide/Mg Hydroxide (Mylanta Ii) 30 ml PO Q6H PRN PRN PRN Reason: dyspesia Bisacodyl (Dulcolax) 10 mg RECTAL DAILY PRN PRN Reason: Constipation Buprenorphine HCl (Buprenorphine Hcl) 2 mg SL Q8H [facility]; Taper Stop: 05/20/19 02:29 Last Admin: 05/18/19 06:28 Dose: 2 mg Documented by: Clonidine (Catapres) 0.1 mg PO Q2H PRN PRN PRN Reason: Hot/Cold Sweats or Anxiety Dicyclomine HCl (Bentyl) 20 mg PO Q6H PRN PRN PRN Reason: Abdominal Discomfort Last Admin: 05/18/19 12:38 Dose: 20 mg Documented by: Folic Acid (Folic Acid) 1 mg PO DAILYCM [facility] Stop: 05/19/19 08:01 Last Admin: 05/18/19 08:36 Dose: 1 mg Documented by: Ibuprofen (Motrin) 600 mg PO Q8H PRN PRN PRN Reason: Pain Score 1-10/10 Last Admin: 05/18/19 13:54 Dose: 600 mg Documented by: Loperamide HCl (Imodium) 2 - 4 mg PO UD PRN PRN Reason: LOOSE STOOLS Last Admin: 05/18/19 06:38 Dose: 2 mg Documented by: Lorazepam (Ativan) 2 mg IV X1 PRN PRN Reason: Seizure Lorazepam (Ativan) 1 mg PO Q6H [facility]; Taper Stop: 05/20/19 02:29 Last Admin: 05/18/19 12:37 Dose: 1 mg Documented by: Methocarbamol (Methocarbamol) 750 mg PO Q6H PRN PRN PRN Reason: Muscle Aches Last Admin: 05/18/19 06:39 Dose: 750 mg Documented by: Multivitamins (Multivitamin) [facility] Last Admin: 05/18/19 08:36 Dose: 1 tablet Documented by: Nicotine (Nicoderm Cq (Pbkc)) 21 mg TRANSDERM. DAILY [facility] Last Admin: 05/18/19 11:11 Dose: 21 mg Documented by: Nitrofurantoin Macrocrystals (Macrobid) 100 mg PO BID [facility] Stop: 05/22/19 10:01 Last Admin: 05/18/19 11:12 Dose: 100 mg Documented by: Ondansetron HCl (Zofran Odt) 4 mg PO Q6H PRN PRN PRN Reason: NAUSEA Pramipexole Dihydrochloride (Mirapex) 0.25 mg PO Q12H PRN PRN PRN Reason: Restless Legs Last Admin: 05/18/19 06:39 Dose: 0.25 mg Documented by: Senna (Senokot) 1 tablet PO QHS PRN PRN Reason: Constipation Thiamine HCl (Vitamin B1) [facility] Stop: 05/19/19 08:01 Last Admin: 05/18/19 08:36 Dose: 100 mg Documented by: Trazodone HCl (Desyrel) 50 mg PO QHS [facility] Last Admin: 05/17/19 23:00 Dose: 50 mg Documented by: STROKE Vital Signs/Narrative: Vital Signs Temp Pulse Resp BP Pulse Ox 05/18/19 11:00 96 05/18/19 10:45 98 F 96 20 H 93/58 L 95 Code Visit Addendum: Dr. Rossi I personally examined the patient and reviewed the chart. I agree with the above. 23-year-old female going through both heroin and alcohol withdrawal. She says that she only drinks whenever she is in heroin withdrawal. She is resting comfortably this morning however she did develop some nausea as well as diarrhea which is currently being treated, likely secondary to her withdrawal. Liver ultrasound as well as hepatitis and HIV is pending. Continue with both the opiate and alcohol withdrawal protocols. Inpatient E&M: 72779 [facility] L[facility]
[2019-05-18] MEDS: Ibuprofen 600 MG Tablet PO (13:54)
[2019-05-18 14:06] LABS: HEPATITIS B SURFACE AG Negative (Negative); Hepatitis A IgM Antibody Negative (Negative); Hepatitis B Core AB IgM Negative (Negative)
[2019-05-18 14:36] VITALS: BP 96/55; PULSE 86; RESP 20; TEMP 36.6; O2SAT 94
--- NOTE | 2019-05-18 17:25 | NURSING ---
2891 into pt room, pt requested to take a shower, set pt up for shower. Ayad Ruano RN
--- NOTE | 2019-05-18 17:26 | NURSING ---
1650 into pt room to check status in shower, upon entering pt room, noted smoke smell. Ayad Ruano RN
--- NOTE | 2019-05-18 17:27 | NURSING ---
1654 Afia ROBERTSON and Shira BAUTISTA reentered room and asked pt if she was smoking in her room. pt denied smoking in her room, stated maybe my clothes smell like smoke. offered bags to pt- double bagged clothes. instructed pt no smoking is allowed in the hospital. Ayad Ruano RN
[2019-05-18 18:31] VITALS: BP 104/69; PULSE 89; RESP 20; TEMP 36.6; O2SAT 98
[2019-05-18 22:13] VITALS: BP 102/50; PULSE 87; RESP 18; TEMP 36.6; O2SAT 97
[2019-05-18] MEDS: traZODone 50 MG Tablet PO (22:17)
[2019-05-19] MEDS: Buprenorphine HCl 2 MG TAB.SUBL SL (03:15)
[2019-05-19] MEDS: LORazepam 1 MG Tablet PO ×2 (03:16→10:19)
[2019-05-19 03:24] VITALS: BP 103/48; PULSE 78; RESP 16; TEMP 36.4; O2SAT 97
--- NOTE | 2019-05-19 09:22 | DCINST_ITS ---
- Discharge Diagnoses Current Active Problems: Current Active and Chronic Problems (Last Reviewed 12/31/18 @ 13:39 by Annia Valentino) Urinary tract infection (Acute) Substance abuse (Chronic) You will use the following diet at home:: No restrictions, Other - no alcohol Your food should be the consistency of: Regular Your liquids should be the consistency of: Regular/Thin Discharge Activity: Return to Normal Activity Allergies/Adverse Reactions: Allergies diphenhydramine HCl [From Benadryl] Allergy (Verified 12/31/18 13:38) Hives Penicillins Allergy (Verified 12/31/18 13:38) Hives Medications to take at Discharge NK 12/28/18 Primary Care Physician: NOT,DEFINED [NON-STAFF] - Please follow up with your Primary Care Physician in: 1-2 weeks Test Results: Test results from this visit will be discussed in further detail at your follow- up appointment, if applicable. Please Follow Up With: [facility] program When: as directed Proposed Discharge Date: 05/19/19
[2019-05-19] MEDS: Multivitamins,Therapeutic Tablet 1 TABLET PO (10:12)
[2019-05-19] MEDS: Nitrofurantoin Macrocrystals 100 MG Capsule PO (10:12)
[2019-05-19] MEDS: Folic Acid 1 MG Tablet PO (10:13)
[2019-05-19] MEDS: Thiamine Hydrochloride 100 MG Tablet PO (10:14)
[2019-05-19 10:20] VITALS: BP 105/70; PULSE 95; RESP 18; TEMP 36.4; O2SAT 97
[2019-05-19 10:34] LABS: HIV - WCH Non-Reactive (Nonreactive)
--- NOTE | 2019-05-19 11:06 | CASEMGMT ---
Social Work Note SW updated that [employer] was in speaking with pt at 9:00am this morning. 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
--- NOTE | 2019-05-19 13:25 | PCM.DC.SUM ---
<Rod Lin - Last Filed: 05/19/19 13:25> Discharge Date and Diagnosis Date of Admission: 05/16/19 Date of Discharge: 05/19/19 - Primary Discharge Diagnosis IV opiate abuse with acute withdrawal nicotine abuse meth abuse marijuana abuse - Secondary Discharge Diagnosis Chronic Problems (Last Reviewed 12/31/18 @ 13:39 by Annia Valentino) Substance abuse (Chronic) Anxiety (Chronic) H/O emotional problems (Chronic) Anemia (Chronic) Herpes (Chronic) Hospital Course and Treatment Imaging Results: US/Liver IMPRESSION: Probable right renal cyst. Operations: None Procedures: None Summary of Care Provided: Hospital course: The patient is a 23 year old F with pmhx of opiate, meth, alcohol, nicotine, marijuana abuse who presented to the ER with opiate withdrawal with request for detox. She was having muscle cramps, nausea, hot/cold flashes. She was injective 1/2 g fentanyl daily. She also abused alcohol when going through detox. She had abnormal LFTs. She was admitted to the med surg floor for opiate withdrawal. She was treated with subutec, and also provided with prn ativan in case there was alcohol withdrawal. With her initial abnormal LFTs and IV drug abuse, a liver US was obtained which showed a renal cyst, and hepatitis and HIV panel was done. HIV was nonreactive, Hepatitis panel is pending. She completed the program here and was discharged in stable condition. She plans to pursue [id number]. She will need to follow up with a PCP in 1-2 weeks. This patient was seen by Rod Lin PA-C under the supervision of Doctor Lombardo. [] - Physical Exam Vitals/I&O's: Vital Signs Temp Pulse Resp BP Pulse Ox 97.6 F L 95 18 105/70 97 05/19/19 10:20 05/19/19 10:20 05/19/19 10:20 05/19/19 10:20 05/19/19 10:20 Oxygen Delivery Method Room Air Weight: 159 lb 13.362 oz Body Mass Index (BMI) 29.2 Intake and Output for Last 24 Hours 05/17/19 05/18/19 05/19/19 23:59 23:59 23:59 Intake Total 800 / 1800 2740 / 2740 100 / 100 Balance 800 / 1800 2740 / 2740 100 / 100 General: Alert, Oriented x3, Cooperative HEENT: Atraumatic, PERRLA, EOMI, Normocephalic Neck: Supple, No JVD, Negative Carotid Bruits Lungs: Clear to auscultation, Normal air movement Cardiovascular: Regular rate, No murmurs Abdomen: Bowel Sounds Present, Soft, Non Tender Extremities: No edema, Capillary Refill Less than 3 Seconds Skin: No rashes, No breakdown Musculoskeletal: No Tenderness to Palpation of Joints or Extremities Neurological: Cranial nerves II-XII grossly intact Psych/Mental Status: Normal Affect, Appropriate, Alert and oriented to time, place, person, mood and affect Microbiology Past 72 Hours 05/17/19 23:10 Interface Orders Urine Culture - Final Presumptive E. coli Laboratory Results 05/17/19 01:21: HIV 1&2 Antibody Non-Reactive Discharge Diet: No Restrictions Discharge Activity: Return to Normal Activity Home Medications: Medications to take at Discharge Ciprofloxacin [Cipro] 500 mg PO BID #6 tab 05/19/19 Following Prescrptions Were Given to Patient: Ciprofloxacin [Cipro] 500 mg PO BID #6 tab Transmission Status: Received by [facility] RICARD[facility]-[address] [facility] Primary Care Physician: NOT,DEFINED [NON-STAFF] - Please follow up with your Primary Care Physician in: 1-2 weeks Please Follow Up With: [facility] program When: as directed Disposition: Home Minutes spent on discharge:: 35 Patient Condition:: Stable Medical Necessity - Tobacco Use Smoking Status: Current every day smoker Tobacco Use: Cigarettes Meaningful Use Info Meaningful Use Diagnoses (Choose all that apply): None applicable <Keyon Lombardo - Last Filed: 05/19/19 17:11> Discharge Date and Diagnosis - Secondary Discharge Diagnosis Chronic Problems (Last Reviewed 12/31/18 @ 13:39 by Annia Valentino) Substance abuse (Chronic) Anxiety (Chronic) H/O emotional problems (Chronic) Anemia (Chronic) Herpes (Chronic) Hospital Course and Treatment Summary of Care Provided: [] This patient was seen in conjunction with Rod BENJAMIN. I have independently interviewed and examined the patient and reviewed pertinent history, examination findings, laboratory and plan of management. I have reviewed the note and agree with the documented findings with the few additional points. In brief, patient is a 22-year-old female with history of opioid math, alcohol, nicotine/polysubstance use admitted with opioid withdrawal syndrome. Patient was started on medical stabilization protocol on Subutex. Patient also has history of alcohol use and dependence and withdrawal syndrome was stabilized. Patient also had UTI symptoms consistent with acute cystitis. Urine culture grew E. coli. Patient discharged on Cipro 500 mg twice daily for 3 days. Hepatitis panel are pending. HIV nonreactive. Discharge medication reconciliation done. Discharge follow-up instructions completed. Discharge process discussed with the patient and all questions were answered to patient's satisfaction.. Total time spent, exact 35 minutes on discharge meds reconciliation, examination, review of imaging and blood test and discussion with the patient on follow-up instructions. I have discussed my assessment with Rod BENJAMIN and orders have been reviewed. Microbiology Past 72 Hours 05/17/19 23:10 Interface Orders Urine Culture - Final Presumptive E. coli Laboratory Results 05/17/19 01:21: HIV 1&2 Antibody Non-Reactive Subjective: Seen and examined. Patient states no fever or chills. Complain of mild urinary retention/burning micturition with increased frequency and urgency. - Physical Exam Vitals/I&O's: Vital Signs Temp Pulse Resp BP Pulse Ox 97.6 F L 95 18 105/70 97 05/19/19 10:20 05/19/19 10:20 05/19/19 10:20 05/19/19 10:20 05/19/19 10:20 Oxygen Delivery Method Room Air Weight: 159 lb 13.362 oz Body Mass Index (BMI) 29.2 Intake and Output for Last 24 Hours 05/17/19 05/18/19 05/19/19 23:59 23:59 23:59 Intake Total 800 / 1800 2740 / 2740 100 / 100 Balance 800 / 1800 2740 / 2740 100 / 100 General: Alert, Oriented x3, Cooperative HEENT: Atraumatic, PERRLA, EOMI, Normocephalic Neck: Supple, No JVD, Negative Carotid Bruits Lungs: Clear to auscultation, Normal air movement, No rhonchi, No wheeze, No rales Cardiovascular: Regular rate, Regular Rhythm, Normal S1, Normal S2, No murmurs Abdomen: Bowel Sounds Present, Soft, Non Tender, Non-Distended Extremities: No edema, Capillary Refill Less than 3 Seconds Skin: No rashes, No breakdown Musculoskeletal: No Tenderness to Palpation of Joints or Extremities Neurological: Cranial nerves II-XII grossly intact Psych/Mental Status: Normal Affect, Appropriate Microbiology Past 72 Hours 05/17/19 23:10 Interface Orders Urine Culture - Final Presumptive E. coli Laboratory Results 05/17/19 01:21: HIV 1&2 Antibody Non-Reactive Code Visit Inpatient E&M: 06651 [facility]
[2019-05-20 10:24] LABS: Hep C Antibodies >11.0 s/co ratio (0.0-0.9)
== END 2019-05-19 11:10 | disposition home or self-care (01) | DRG 773 ==
LOC: ED 18:39 → MS3 21:05
PROVIDERS: Physician Assistant; Admitting Provider Internal Medicine; Emergency Provider Emergency Medicine; Family Provider Internal Medicine; PCP Internal Medicine; Visit Provider Internal Medicine
DX: F11.23 Opioid dependence with withdrawal (principal); F10.239 Alcohol dependence with withdrawal, unspecified; F15.10 Other stimulant abuse, uncomplicated; F12.10 Cannabis abuse, uncomplicated; N30.00 Acute cystitis without hematuria; B96.20 Unspecified Escherichia coli [E. coli] as the cause of diseases classified elsewhere; B00.9 Herpesviral infection, unspecified; F31.9 Bipolar disorder, unspecified; F41.9 Anxiety disorder, unspecified; F17.210 Nicotine dependence, cigarettes, uncomplicated
CPT/HCPCS: 36415; 76705; 80053; 80074; 80307; 80320; 80329; 81001; 81025; 85025; 86703; 87086; 87088; 87186; 96360; 99218; 99284; H0012; J7030; A4216; G0378; G0480

== ENCOUNTER → 2019-06-27 09:38 | Outpatient (CLI) | payer MEDICAID, SELFPAY ==
[2019-06-27 09:13] VITALS: BMI 29.2
[2019-06-27 13:06] LABS: Absolute Lymphocyte Count 1.71 X10^3/uL (0.83-4.51); Absolute Neutrophil Count 3.1 X10^3/uL (2.0-7.7); Basophil# 0.03 X10^3/uL; Basophil% 0.5 % (0-1); Eosinophil# 0.16 X10^3/uL; Eosinophils% 2.9 % (0-5); Hematocrit 39.1 % (37-47); Hemoglobin 12.8 g/dL (12.0-15.0); Lymphocyte # 1.71 X10^3/ul (4.0); Lymphocyte % 30.6 % (19-41); Mean Corp Hgb Conc 32.7 g/dL (32-36); Mean Corpuscular Hgb 30.5 pg (27.0-32.0); Mean Corpuscular Volume 93.1 fL (81-99); Monocyte# 0.53 X10^3/uL; Monocyte% 9.5 % (0-10); NRBC Flagged by Analyzer 0 % (0-5); Neutrophil # 3.14 X10^3/uL (2.7-7.7); Neutrophil % 56.1 % (47-70); Platelet Count 315 K/mm3 (150-450); RBC Distribution Width CV 12.9 % (11.6-14.6); RBC Distribution Width SD 43.6 fl (35.1-43.9); White Blood Count 5.6 K/mm3 (4.4-11.0)
[2019-06-27 13:18] LABS: Internal QC Validated? YES +Cl - CLEAR BKGD; Pregnancy, Serum, hCG Quali. NEGATIVE Negative
[2019-06-27 13:39] LABS: ALB/GLOB Ratio 0.9 RATIO (0.9-2.4); AST(SGOT) 92 U/L (15-37); Alanine Aminotransfer ALT/SGPT 171 U/L (13-56); Albumin, Serum 3.5 g/dL (3.2-5.0); Alkaline Phosphatase 73 U/L (45-117); Anion Gap 6 (5-15); BUN 13 mg/dL (7-18); BUN/Creat Ratio 19.4 RATIO (10-20); Calcium,Total 9.5 mg/dL (8.5-10.1); Chloride 105 mmol/L (98-107); Creatinine, Serum 0.67 mg/dL (0.55-1.02); EST Glomerular Filtration Rate 115 mL/min (>60); Est Glom Filt Rate - Afr Amer 139 mL/min (>60); Glucose 91 mg/dL (74-106); Potassium 4.1 mmol/L (3.5-5.1); Protein, Total 7.5 g/dL (6.4-8.2); Sodium Level 136 mmol/L (136-145); Thyroid Stim Hormone (TSH) 0.37 uIU/mL (0.358-3.74)
[2019-06-27 14:06] LABS: HIV - WCH Non-Reactive (Nonreactive)
[2019-06-29 20:07] LABS: HCV Quant. RNA PCR 19900 IU/mL (.)
[2019-06-29 20:47] LABS: HCV log 10 4.299 (.)
[2019-07-01 11:17] LABS: Vitamin B12 549 pg/mL (211-911); Vitamin D,25 Hydroxy 26.6 ng/mL
== END ==
PROVIDERS: PCP Internal Medicine; Referring Provider Nurse Practitioner Family; Visit Provider Nurse Practitioner Family
DX: B19.20 Unspecified viral hepatitis C without hepatic coma (principal); R94.5 Abnormal results of liver function studies; F19.10 Other psychoactive substance abuse, uncomplicated; R63.5 Abnormal weight gain; N92.6 Irregular menstruation, unspecified; E56.9 Vitamin deficiency, unspecified
CPT/HCPCS: 36415; 80053; 82306; 82607; 84443; 84703; 85025; 86703; 87521; 87522

== ENCOUNTER 2019-09-26 12:39 | Inpatient (IN) | payer MEDICAID, SELFPAY ==
[2019-06-27 09:13] VITALS: BMI 29.2
[2019-09-26] VITALS (10 sets, daily range): BP systolic 83–134; BP diastolic 46–98; PULSE 65–99; RESP 14–21; TEMP 36.2–36.8; O2SAT 95–100; BMI 27.8
--- NOTE | 2019-09-26 12:55 | ED.VIS.GEN ---
History of Present Illness Chief Complaint: Abscess Informant: Patient Onset: Days Context: Sudden Onset Timing: Continuous Quality: Pain Location: Left labia majora/perineum and buttocks Current Severity: Moderate Maximum Severity: Severe Worsened by: Sitting Relieved by: Nothing Associated Symptoms: Subjective fever, chills and nausea Narrative: Patient is a 23-year-old woman with history of IV drug use who presents with abscess left perineal/buttocks labial region. She states that drained some purulent material 2 days ago. She does report fever and chills. She states she is hepatitis C positive. She states she is HIV negative. She has not had anything to eat today. She states she had a sip of coffee. She has not had a reaction to IV anesthetics. She denies history medic fever, SBE, or being immune suppressed. She states she was told she had a heart murmur after she resuscitated for opiate overdose. She has received Narcan 12 times. She last used yesterday. She does admit to smoking. She occasionally has an alcoholic beverage. Her drug of choice is heroin. She denies headache, visual, ocular auditory symptoms. She denies chest pain or shortness of breath. She does report nausea without vomiting or diarrhea. She denies dysuria, frequency, urgency or hematuria. She denies myalgias arthralgias. She denies joint swelling. - Past Medical History (1) History of abscess of skin and subcutaneous tissue Status: Acute (2) Alcohol abuse Status: Acute (3) complicated by subutex maintenance, antepartum Status: Acute (4) Anemia Status: Chronic (5) Anxiety Status: Chronic (6) Substance abuse Status: Chronic Past Medical History - Allergies and Home Meds Allergies/Adverse Reactions: Allergies diphenhydramine HCl [From Benadryl] Allergy (Verified 09/26/19 12:42) Hives Penicillins Allergy (Verified 09/26/19 12:42) Hives Primary Care Physician: David Nelson MD [Primary Care Provider] - Prior records reviewed: Yes Surgical History: - Lives: Alone Smoking Status: Current every day smoker Alcohol: Heavy Drugs: Heroin - Family History Maternal Family History: Family History (Last Reviewed 06/27/19 @ 09:11 by Libra Gutierrez) Other Alcoholism Anxiety Arthritis Cancer Cervical cancer Depression Diabetes Mental disorder Ovarian cancer Psychiatric care Seizures Thyroid disorder Family History: Reports: Cancer - Tobacco consult, - - Alcoholism, seizure disorder Paternal Family History: Family History (Last Reviewed 06/27/19 @ 09:11 by Libra Gutierrez) Other Alcoholism Anxiety Arthritis Cancer Cervical cancer Depression Diabetes Mental disorder Ovarian cancer Psychiatric care Seizures Thyroid disorder Family History: Reports: - - Alcoholism Review of Systems General: Reports: Chills, Fever, Malaise, Subjective, Sweats. Denies: Weight loss Eyes: Denies: Visual changes - bilaterally, Blurred Vision - bilaterally ENT: Denies: Bilateral ear pain, Rhinorrhea, Sore throat Cardiovascular: Denies: Chest pain, Palpitations Respiratory: Denies: Dyspnea, Cough, Dyspnea on exertion Gastrointestinal: Reports: Nausea. Denies: Abdominal pain, Vomiting, Diarrhea, Constipation, Melena, Hematochezia Genitourinary: Denies: Dysuria, Hematuria, Frequency Musculoskeletal: Denies: Myalgias, Arthralgias, Neck pain, Back pain, Swelling, Extremity Pain, -, - Skin: Reports: Rash, Abscess, Wounds Neurological: Denies: Headache, Weakness, Parasthesia Psych: Reports: Depression, Anxiety. Denies: Suicidal thoughts Hematologic: Denies: Easy bruising, Easy bleeding Allergy: Denies: Uticaria, Swelling of the mouth, Swelling of the tongue Physical Exam Vital Signs/Narrative: Vital Signs Temp Pulse Resp BP Pulse Ox 09/26/19 12:39 9738 F H 97 18 115/63 97 Inital Vital Signs reviewed: Yes General: Well nourished, Well developed, Obese, - - Appears ill and pale Head: Normocephalic, Atraumatic Eyes: Perrl, EOMI, Pale conjunctiva. Negative for: Scleral icterus ENT: Moist mucous membranes, No rhinorrhea, TM's clear Neck: Supple, Nontender, No lymphadenopathy, No JVD Cardiovascular: Regular rate, Regular rhythm, No murmurs, Normal S1, Normal S2 Respiratory: No distress, CTA bilaterally, Chest nontender Abdomen: Soft, Nontender, Nondistended, Normal bowel sounds, No masses : - - Genitalia remarkable for cellulitis involving the left labia majora Back: Nontender, Normal Inspection. Negative for: CVA tenderness Extremities: Nontender, No edema Skin: Normal color, No Trauma, Rash - Myelitis of the perineal buttocks area.. Negative for: No rash, Cyanosis, Diaphoresis, Jaundice Neurological: Alert, Oriented x3, Cranial nerves II-XII grossly intact, Normal Strength, Normal Sensation Psychological: Depressed Diagnostic/Tx/Re-eval Laboratory Results 09/26/19 09/26/19 09/26/19 13:50 13:50 13:50 WBC 11.9 H RBC 3.80 L Hgb 11.1 L Hct 33.8 L MCV 88.9 MCH 29.2 MCHC 32.8 RDW Std Deviation 43.8 RDW Coeff of Donnell 13.4 Plt Count 387 MPV 9.0 Immature Gran % (Auto) 0.600 Neut % (Auto) 74.3 H Lymph % (Auto) 17.9 L [place] % (Auto) 4.5 Eos % (Auto) 2.2 Baso % (Auto) 0.5 Absolute Neuts (auto) 8.8 H Absolute Lymphs (auto) 2.13 Nucleated RBC % 0 Sodium 139 Potassium 4.0 Chloride 105 Carbon Dioxide 29.0 Anion Gap 5 BUN 12 Creatinine 0.63 Estim Creat Clear Calc 109.84 Est GFR (MDRD) Af Amer 150 Est GFR (MDRD) Non-Af 124 BUN/Creatinine Ratio 19.1 Glucose 108 H Lactic Acid 1.9 Calcium 9.1 Total Bilirubin 0.30 AST 35 ALT 142 H Alkaline Phosphatase 151 H Total Protein 7.6 Albumin 3.0 L Globulin 4.6 H Albumin/Globulin Ratio 0.7 L He only has 1 sirs criteria. She does have a significant abscess and cellulitis. She was started on appropriate antibiotics. Hospitalist was paged for admission. - Medical Decision Making Patient has an abscess with cellulitis. Concern for MRSA. Patient appears ill. Sepsis work-up was initiated. Based on allergies she was treated with ceftriaxone 2 g and vancomycin 15 mg/kg IV again back. Plan is deep sedation using propofol. Will anesthetize area and incise and drain abscess. Procedure note for further detail Procedures Procedure(s): 1. Patient was consented for deep sedation. Patient has no prior complications and has no contraindication to IV anesthetic using propofol. She denies allergy to soy or egg products. Patient was informed of the risk benefits using IV anesthetic and risks with regards to incision and drainage of abscess. Patient was given opportunity ask questions. She stated she had none. She states she has had this done in the past. 2. Nurse and ancillary staff unable to establish peripheral IV. Using ultrasound a 20-gauge Angiocath was placed successfully first attempt right external jugular line. Patient was prepped draped in a sterile manner. The vessel was cannulated successfully. Blood was drawn from the vessel and IV was established. 3. Patient was prepped draped sterile manner. She received a total of 150 mg of propofol. The area was anesthetized with 1% lidocaine by local infiltration. An incision was made with a 10 blade. Incision is 3 cm in length. Blunt dissection was undertaken. There is a large abscess cavity that is approximately 3 x 4 cm. Wick was placed. Patient tolerated procedure well without complication. Procedure started at 1401 and was completed at 1408. ED Disposition - Plan for ED Patient: Diagnosis: Cellulitis and abscess of buttock Referrals: David Nelson MD [Primary Care Provider] -
[2019-09-26 14:00] LABS: Absolute Lymphocyte Count 2.13 X10^3/uL (0.83-4.51); Absolute Neutrophil Count 8.8 X10^3/uL (2.0-7.7); Basophil# 0.06 X10^3/uL; Basophil% 0.5 % (0-1); Eosinophil# 0.26 X10^3/uL; Eosinophils% 2.2 % (0-5); Hematocrit 33.8 % (37-47); Hemoglobin 11.1 g/dL (12.0-15.0); Lymphocyte # 2.13 X10^3/ul (4.0); Lymphocyte % 17.9 % (19-41); Mean Corp Hgb Conc 32.8 g/dL (32-36); Mean Corpuscular Hgb 29.2 pg (27.0-32.0); Mean Corpuscular Volume 88.9 fL (81-99); Monocyte# 0.54 X10^3/uL; Monocyte% 4.5 % (0-10); NRBC Flagged by Analyzer 0 % (0-5); Neutrophil # 8.81 X10^3/uL (2.7-7.7); Neutrophil % 74.3 % (47-70); Platelet Count 387 K/mm3 (150-450); RBC Distribution Width CV 13.4 % (11.6-14.6); RBC Distribution Width SD 43.8 fl (35.1-43.9); White Blood Count 11.9 K/mm3 (4.4-11.0)
[2019-09-26] MEDS: 0.9% Normal Saline 1,000 ML 150 ML IV ×3 (14:00→23:35)
[2019-09-26] MEDS: Diphth,Pertuss(Acell),Tet Vac 0.5 ML Vial IM (14:13)
[2019-09-26] MEDS: Propofol 200 MG/20 ML Vial IV BOLUS (14:13)
[2019-09-26 14:16] LABS: ALB/GLOB Ratio 0.7 RATIO (0.9-2.4); AST(SGOT) 35 U/L (15-37); Alanine Aminotransfer ALT/SGPT 142 U/L (13-56); Alkaline Phosphatase 151 U/L (45-117); Anion Gap 5 (5-15); BUN 12 mg/dL (7-18); BUN/Creat Ratio 19.1 RATIO (10-20); Calcium,Total 9.1 mg/dL (8.5-10.1); Chloride 105 mmol/L (98-107); Creatinine, Serum 0.63 mg/dL (0.55-1.02); EST Glomerular Filtration Rate 124 mL/min (>60); Est Glom Filt Rate - Afr Amer 150 mL/min (>60); Estimated Creatinine Clearance 109.84 ml/min; Globulin 4.6 g/dL (2.2-4.2); Glucose 108 mg/dL (74-106); Protein, Total 7.6 g/dL (6.4-8.2); Sodium Level 139 mmol/L (136-145)
[2019-09-26] MEDS: Ketorolac 15 MG/ML Vial IV (14:17)
[2019-09-26 14:25] LABS: Lactic Acid 1.9 mmol/L (0.4-1.9)
[2019-09-26] MEDS: HYDROmorphone 1 MG/ML Syringe 0.5 MG IV (14:31)
[2019-09-26] MEDS: Ondansetron 4 MG/2 ML Vial IV (14:36)
--- NOTE | 2019-09-26 15:55 | CON.PCM_ITS ---
Problem List (1) Abscess or cellulitis of perineum Status: Acute (2) Urinary tract infection Status: Inactive (3) History of abscess of skin and subcutaneous tissue Status: Chronic (4) Cellulitis and abscess of buttock Status: Acute (5) Substance abuse Status: Chronic (6) Anxiety Status: Chronic (7) H/O emotional problems Status: Chronic (8) Hives Status: Resolved (9) UTI (urinary tract infection) Status: Resolved (10) Bone fracture Status: Resolved (11) Alcohol abuse Status: Acute (12) Heroin withdrawal Status: Acute (13) Depression affecting Status: Acute (14) Positive urine drug screen Status: Resolved (15) Anemia Status: Chronic (16) Herpes Status: Chronic (17) Tobacco abuse Status: Acute (18) complicated by subutex maintenance, antepartum Status: Acute (19) History of drug abuse Status: Resolved Reason for Consult Date of Consultation: 09/26/19 Reason for Consultation: Medical management of IVDA/opioid drug abuse History of Present Illness: The patient is a 23 year old F with history of multiple skin/subcutaneous abscesses, IVDA heroin use and dependence, chronic hepatitis C never treated came to ER with perineal abscess/swelling noticed about a week ago. It started draining yellow pus for last 3 to 4 days. Patient also complained of fever and chills. She noticed when she has difficulty in sitting on buttocks. The abscess has spread from labia/vaginal wall to left buttock. Patient had incision and drainage by ER physician and he stated he drained almost all under propofol and lidocaine local anesthesia. In ED, no fever, heart rate in 99/min, blood pressure 118/77 with no hypoxia or tachypnea. Basic lab work shows mild leukocytosis about 12,000 with left shift. Liver test shows elevated transaminases ALT 142, alkaline phosphatase 151. Albumin 3.0. A/G ratio 0.7. Lactic acid 1.9. Patient has history of MRSA. She HAD 1750 mg IV vancomycin and ceftriaxone 2 g in ER. Patient last dose of heroin yesterday. Usually she uses 1 g of IV heroin daily. She further says she overdosed herself yesterday but recovered spontaneously I talked to PLANT NURSERY WORKER financial operations consultant Dr. Purvi Trejo and she agreed to admit and hospitalist team will assist in antibiotic and opioid withdrawal syndrome. [] Past Medical History Past Medical History (Chronic Problems): Chronic Problems (Last Reviewed 06/27/19 @ 09:11 by Libra Gutierrez) History of abscess of skin and subcutaneous tissue (Chronic) Substance abuse (Chronic) Anxiety (Chronic) H/O emotional problems (Chronic) Anemia (Chronic) Herpes (Chronic) Medical History: Medical History (Last Reviewed 06/27/19 @ 09:11 by Libra Gutierrez) H/O emotional problems (Chronic) Z86.59 Hives (Resolved) L50.9 UTI (urinary tract infection) (Resolved) N39.0 Bone fracture (Resolved) T14.8XXA Alcohol abuse (Acute) F10.10 Depression affecting (Acute) O99.340, F32.9 Positive urine drug screen (Resolved) R82.5 Anemia (Chronic) D64.9 Herpes (Chronic) B00.9 Tobacco abuse (Acute) Z72.0 complicated by subutex maintenance, antepartum (Acute) O99.320, F11.20 History of drug abuse (Resolved) Z87.898 Allergies diphenhydramine HCl [From Benadryl] Allergy (Verified 09/26/19 12:42) Hives Penicillins Allergy (Verified 09/26/19 12:42) Hives Home Medications: Ambulatory Orders Medication Instructions Recorded buprenorphine 8 mg-naloxone 2 mg 1 tab PO DAILY 06/27/19 sublingual film Acyclovir 400 mg PO TID 09/26/19 Surgical History: Surgical History (Last Reviewed 06/27/19 @ 09:11 by Libra Gutierrez) History of Z98.891 04/16/18 Surgical History: - Psychiatric History: Anxiety, Bipolar, Depression PLANT NURSERY WORKER History: No pertinent PLANT NURSERY WORKER history Lives: Alone Smoking Status: Current every day smoker Alcohol: Heavy Drugs: Heroin - *Family History Maternal Family History: Family History (Last Reviewed 06/27/19 @ 09:11 by Libra Gutierrez) Other Alcoholism Anxiety Arthritis Cancer Cervical cancer Depression Diabetes Mental disorder Ovarian cancer Psychiatric care Seizures Thyroid disorder History Items: Cancer - Tobacco consult, - - Alcoholism, seizure disorder Paternal Family History: Family History (Last Reviewed 06/27/19 @ 09:11 by Libra Gutierrez) Other Alcoholism Anxiety Arthritis Cancer Cervical cancer Depression Diabetes Mental disorder Ovarian cancer Psychiatric care Seizures Thyroid disorder History Items: - - Alcoholism Review of Systems Constitutional: Reports: Anorexia, Chills, Fever, Malaise, Weakness HEENT: Denies: Head Aches, Sinus Congestion, Sinus Drainage Cardiovascular: Denies: Chest Pain, Palpitations Respiratory: Denies: Cough, Shortness of breath at rest, Sputum production Gastrointestinal: Denies: Abdominal Pain, Nausea, Vomiting Genitourinary: Reports: - - She is unclear about LMP. Perhaps in August. Her menstrual period is irregular. Unclear about .. Denies: Dysuria, Frequency Musculoskeletal: Denies: Joint Pain, Joint Tenderness Skin: Denies: Rash, Wounds Neurological: Denies: Numbness, Tingling, Focal weakness Psychiatric: Denies: Anxiety, Depression, Homicidal Ideations, Suicidal Ideations Hematologic/ Lymphatic: Denies: Easy Bruising, Easy Bleeding Patient Problems: Active and Suspected Problems (Last Reviewed 06/27/19 @ 09:11 by Libra Gutierrez) Cellulitis and abscess of buttock (Acute) Abscess or cellulitis of perineum (Acute) - Physical Exam Vitals/I&O's: Vital Signs Temp Pulse Resp BP Pulse Ox 9738 F H 91 16 114/98 H 99 09/26/19 12:39 09/26/19 14:20 09/26/19 14:20 09/26/19 14:20 09/26/19 14:20 Oxygen Flow Rate (L/min) [2] 99 Oxygen Flow Rate (L/min) [1 ( 98 Initial Baseline)] Oxygen Delivery Method [3] Room Air Oxygen Delivery Method [2] Room Air Oxygen Delivery Method [1 ( Room Air Initial Baseline)] Oxygen Delivery Method Room Air Weight: 152 lb 8.958 oz Body Mass Index (BMI) 27.8 Intake and Output for Last 24 Hours 09/24/19 09/25/19 09/26/19 23:59 23:59 23:59 Intake Total 87.5 / 87.5 Balance 87.5 / 87.5 General: Alert, Oriented x3, Cooperative HEENT: Atraumatic, PERRLA, EOMI, Normocephalic Oral: Dry Mucosa Neck: Supple, No JVD, Negative Carotid Bruits Lungs: Clear to auscultation, Normal air movement, No rhonchi, No wheeze, No rales Cardiovascular: Regular rate, Regular Rhythm, Normal S1, Normal S2, No murmurs Abdomen: Bowel Sounds Present, Soft, Non Tender, Non-Distended, - - Genitourinary system: Examined in the presence of ER nurse. Swelling with induration and tenderness around left labia, perineal region extending left buttock. Diffuse erythema. Incision and drainage and packing done by ER physician Extremities: No edema, Capillary Refill Less than 3 Seconds Skin: No rashes, No breakdown Musculoskeletal: No Tenderness to Palpation of Joints or Extremities Neurological: Cranial nerves II-XII grossly intact Psych/Mental Status: Normal Affect, Appropriate Laboratory Results 09/26/19 13:50: WBC 11.9 H, RBC 3.80 L, Hgb 11.1 L, Hct 33.8 L, MCV 88.9, MCH 29.2, MCHC 32.8, RDW Std Deviation 43.8, RDW Coeff of Donnell 13.4, Plt Count 387, MPV 9.0, Immature Gran % (Auto) 0.600, Neut % (Auto) 74.3 H, Lymph % (Auto) 17.9 L, [place] % (Auto) 4.5, Eos % (Auto) 2.2, Baso % (Auto) 0.5, Absolute Neuts (auto) 8.8 H, Absolute Lymphs (auto) 2.13, Nucleated RBC % 0 09/26/19 13:50: Sodium 139, Potassium 4.0, Chloride 105, Carbon Dioxide 29.0, Anion Gap 5, BUN 12, Creatinine 0.63, Estim Creat Clear Calc 109.84, Est GFR (MDRD) Af Amer 150, Est GFR (MDRD) Non-Af 124, BUN/Creatinine Ratio 19.1, Glucose 108 H, Calcium 9.1, Total Bilirubin 0.30, AST 35, ALT 142 H, Alkaline Phosphatase 151 H, Total Protein 7.6, Albumin 3.0 L, Globulin 4.6 H, Albumin/Globulin Ratio 0.7 L 09/26/19 13:50: Lactic Acid 1.9 Current Medications Acyclovir (Zovirax) 400 mg PO TID [facility] Sodium Chloride () 1,000 mls @ 150 mls/hr IV .Q6H40M [facility] Last Infusion: 09/26/19 14:15 Dose: 0 mls/hr Documented by: Assessment/Plan All Active Problems (Last Reviewed 06/27/19 @ 09:11 by Libra Gutierrez) Cellulitis and abscess of buttock (Acute) Abscess or cellulitis of perineum (Acute) Hives (Resolved) UTI (urinary tract infection) (Resolved) Bone fracture (Resolved) Alcohol abuse (Acute) Heroin withdrawal (Acute) Depression affecting (Acute) Positive urine drug screen (Resolved) Tobacco abuse (Acute) complicated by subutex maintenance, antepartum (Acute) History of drug abuse (Resolved) Breech presentation of fetus (Resolved) related abdominal pain of lower quadrant, antepartum (Resolved) Vaginal discharge during (Resolved) 23-year-old female with history of polysubstance use, heroine IV came to ER with left-sided perineal abscess status post incision and drainage in the ER. 1. Left-sided perineal abscess extending from labia/vaginal wall to buttock status post incision and drainage: Patient is being admitted by MANUFACTURING QUALITY ENGINEER service. Started on IV vancomycin and meropenem. Patient got 2 g IV ceftriaxone in ER. Further monitoring of the perineal abscess area by PLANT NURSERY WORKER if she needs further drainage. Follow-up blood culture and wound culture. MRSA nasal screen. Serum test negative. Chlamydia and gonococcus PCR. 2. Polysubstance use including IV heroin use and dependence: Started on buprenorphine taper schedule along with other supportive medications. 3. Chronic hepatitis C with elevated liver test: ALT is elevated. Monitor liver test. 4. Anxiety and depression: on supportive medications trazodone 5. Moderate risk in view of perineal abscess: Lovenox 40 mg subcu daily Inpatient E&M: 78668 In Hosp L3
[2019-09-26 16:27] LABS: Prothrombin Time (Protime)PT. 12.9 SECONDS (11.7-14.9)
[2019-09-26 16:36] LABS: Internal QC Validated? YES +Cl - CLEAR BKGD; Pregnancy, Serum, hCG Quali. NEGATIVE Negative
[2019-09-26 16:41] LABS: GGTP 109 U/L (5-55)
--- NOTE | 2019-09-26 17:24 | NURSING ---
clarified with Dr. Lombardo, pt will be part of the RAMP program. Primary RN aWare and talked with pt, she will sign contract. cad operator aware for room preparation.
--- NOTE | 2019-09-26 18:01 | PCM.RX.CS ---
Consult Labs: Sodium 139 mmol/L (136-145) 09/26/19 13:50 Potassium 4.0 mmol/L (3.5-5.1) 09/26/19 13:50 Chloride 105 mmol/L (98-107) 09/26/19 13:50 Carbon Dioxide 29.0 mmol/L (21.0-32.0) 09/26/19 13:50 Anion Gap 5 (5-15) 09/26/19 13:50 BUN 12 mg/dL (7-18) 09/26/19 13:50 Creatinine 0.63 mg/dL (0.55-1.02) 09/26/19 13:50 Est GFR (MDRD) Af Amer 150 mL/min (>60) 09/26/19 13:50 Est GFR (MDRD) Non-Af 124 mL/min (>60) 09/26/19 13:50 BUN/Creatinine Ratio 19.1 RATIO (10-20) 09/26/19 13:50 Glucose 108 mg/dL (74-106) H 09/26/19 13:50 Pharmacy Plan for Drug Dosing: NEW START IV VANCOMYCIN Consulting Physician: DR. MOSELEY Indication: SKIN/SOFT TISSUE INFECTION Goal Trough: 15-20 SrCr:0.63 CrCl: 110 ML/MIN Comments: PATIENT GOT 1750MG VANCOMYCIN LOADING DOSE (25MG/KG) IN ED 09/26/19 @1449. Vancomcyin Dose: 1000MG IV Q8H TO START 09/25 @2300 Pending Level: 09/27/19 @1430 (PRIOR TO 4TH TOTAL DOSE PER PROTOCOL.
[2019-09-26 18:10] LABS: Alcohol, Blood (Medical)-Serum < 3.0 mg/dL
--- NOTE | 2019-09-26 18:17 | NURSING ---
pt signed ramp paper. pt belongings locked in box in room. pt's subutex locked in med room. grandmother informed of pt admit and update given.
[2019-09-26] MEDS: Buprenorphine HCl 2 MG TAB.SUBL SL (18:32)
[2019-09-26] MEDS: Enoxaparin 40 MG/0.4 ML Syringe SC (18:32)
[2019-09-26] MEDS: Methocarbamol 750 MG Tablet 1500 MG PO (18:35)
--- NOTE | 2019-09-26 18:46 | HP.PCM_ITS ---
History Date of Admission: 05/16/19 Final CHIN Source: US <20 weeks History of this : HPI- Non patient admitted through the ER. I was called from the ER but unable to speak with the ER physician. Was asked to admit the patient by internal medicine for vulvar abscess that the emergency room physician had already drained. I arrived on the floor to evaluate the patient on [facility] unit. Patient stated she had a herpes outbreak a week or so ago. She was picking at the sores. Then she started having some swelling in the area of concern and a little bit of drainage a couple days ago. Denied any fevers or chills. She admits to daily IV drug use. She denies any history of vulvar lesions. She denies any trauma to the area other than the HSV lesions. She states she did not know she had a history of HSV in the past. She has not been sexually active in the last week or 2. She states her weight has fluctuated but she has not gained or lost any significant amount in the last few weeks. Patient denies any recent history of abuse or sexual abuse. She states she is s afe where she stays. She does have a place to go. Does not desire to conceive. She states she uses condoms for contraception when she is sexually active with a male partner. Medical History: Medical History (Last Reviewed 06/27/19 @ 09:11 by Libra Gutierrez) H/O emotional problems (Chronic) Z86.59 Hives (Resolved) L50.9 UTI (urinary tract infection) (Resolved) N39.0 Bone fracture (Resolved) T14.8XXA Alcohol abuse (Acute) F10.10 Depression affecting (Acute) O99.340, F32.9 Positive urine drug screen (Resolved) R82.5 Anemia (Chronic) D64.9 Herpes (Chronic) B00.9 Tobacco abuse (Acute) Z72.0 complicated by subutex maintenance, antepartum (Acute) O99.320, F11.20 History of drug abuse (Resolved) Z87.898 Surgical History: Surgical History (Last Reviewed 06/27/19 @ 09:11 by Libra Gutierrez) History of Z98.891 04/16/18 Allergies diphenhydramine HCl [From Benadryl] Allergy (Verified 09/26/19 12:42) Hives Penicillins Allergy (Verified 09/26/19 12:42) Hives Home Medications: Home Medications buprenorphine 8 mg-naloxone 2 mg sublingual film 1 tab PO DAILY 06/27/19 Acyclovir 400 mg PO TID 09/26/19 Smoking Status: Current every day smoker Alcohol: Heavy Substance Use Type: Heroin History Past Pregnancies: Past Pregnancies Delivery Date Name GA/ Weeks Outcome Route Wt Infant Sex Labor Length Anesthesia Delivery Location Provider FOB Review of Systems Constitutional: Reports: Malaise, Weakness, Fatigue. Denies: Anorexia, Chills, Fever Eyes: Denies: Blurred vision HEENT: Denies: Difficulty Hearing Cardiovascular: Denies: Chest Pain, Chest Pressure, Edema Respiratory: Denies: Cough, Shortness of Breath Gastrointestinal: Reports: Constipation, Nausea Genitourinary: Denies: Dysuria, Frequency, Hematuria Gynecological: Denies: Vaginal bleeding - notes she skips menses frequently and has not had one in several months., Vaginal discharge, Vaginal itching Skin: Reports: Lesions, Pruritis, Rash, Wounds - vulva- there is a large erythemetous lesion that has a wick and is draining purulent fluid. There is some warmth. The edges of the lesion are marked. It is 12 x 10 cm. Mostly on right buttock area, near vulva. Erythema extending into groin area. Labia major and minora are somewhat erythemetous but no fluctuance there. Normal introitus. Normal clitoral area. White mucous discharge at vault. Psychiatric: Reports: Anxiety, Depression Endocrine: Denies: Change in Body Habitus, Polyuria Hematologic/ Lymphatic: Denies: Anemia Physical Exam Vitals: Vital Signs Temp Pulse Resp BP Pulse Ox 97.9 F 65 16 116/73 100 09/26/19 17:08 09/26/19 17:08 09/26/19 17:08 09/26/19 17:08 09/26/19 17:08 General: Cooperative, No apparent distress, - - drowsy Lungs: Normal air movement Abdomen: Soft, Non Tender, Non-Distended Extremities:: No edema Neurological: Slurred Speech Assessment/Plan All Active Problems (Last Reviewed 06/27/19 @ 09:11 by Libra Gutierrez) Cellulitis and abscess of buttock (Acute) Abscess or cellulitis of perineum (Acute) Hives (Resolved) UTI (urinary tract infection) (Resolved) Bone fracture (Resolved) Alcohol abuse (Acute) Heroin withdrawal (Acute) Depression affecting (Acute) Positive urine drug screen (Resolved) Tobacco abuse (Acute) complicated by subutex maintenance, antepartum (Acute) History of drug abuse (Resolved) Breech presentation of fetus (Resolved) related abdominal pain of lower quadrant, antepartum (Resolved) Vaginal discharge during (Resolved) This is a 23 year-old with opiod use disorder, heroin injection mostly, polysubstance use with h/o MRSA and vulvar abscess. I&D and cultures performed by ED physician. Point, clinically surgical intervention is not warranted. I do not feel that the area needs debrided. Agree with IV vancomycin and monitor. Medicine is treating opiod use disorder. Can have Toradol or Tylenol as needed for pain. Discussed with her that unfortunately, the IV site in her neck was the only one that they were able to get and this will need to continue until IV antibiotics are no longer necessary. This will be until cultures are returned and there is noticeable improvement. History of genital herpes, will offer patient a prescription as needed use for outbreaks. Nelia with patient reliable contraception. Patient does not desire . We discussed option of LARC. Patient would like to consider Nexplanon insertion.Will order urine GC/CT screen known chronic hep C. Had HIV screen neg if
[2019-09-26 19:54] LABS: Mucous, Urine 0 SEEN /hpf (<or=2+)
[2019-09-26 19:57] LABS: Color, Urine Yellow (Yellow); Glucose, Dipstick Normal (Normal); Ketone-Dipstick Negative (Negative); Leukocyte Esterase-Dipstick 100 /ul (Negative); Nitrite-Dipstick Positive (Negative); Occult Blood-Urine 25 /ul (Negative); Protein-Dipstick Negative (Negative); Urine Bilirubin Dipstick Negative (Negative); Urine Clarity Sl. Cloudy (Clear); Urine Urobilinogen Normal (Normal)
[2019-09-26 20:23] LABS: Bacteria 2+ /hpf (None Seen); Red Blood Cells-Urine 0-5 SEEN /hpf (0-5); Squamous Epithelial Cells - UA 0-5 SEEN /hpf (5-10); White Blood Cells 5-10 SEEN /hpf (0-5)
[2019-09-26 20:49] LABS: Amphetamine Urine VISTA NEGATIVE (<1000 ng/mL); Barbiturate Urine VISTA NEGATIVE (< 200 ng/mL); Benzodiazepine Urine VISTA NEGATIVE (< 200 ng/mL); Cocaine Urine VISTA NEGATIVE (< 300 ng/mL); Ecstacy Urine VISTA NEGATIVE (< 500 ng/mL); Methadone Urine VISTA NEGATIVE (< 300 ng/mL); PCP Urine VISTA NEGATIVE (< 25 ng/mL); THC Urine VISTA NEGATIVE (< 50 ng/mL); Vista UDS pH Range 7
[2019-09-26] MEDS: Vancomycin IV 1,000 MG/200 ML BAG 200 MG IV (22:10)
[2019-09-26 22:16] LABS: Bedside Glucose 106 mg/dL (70-110)
[2019-09-26] MEDS: 0.9% Saline Lock 10 ML Syringe IV (22:17)
[2019-09-26] MEDS: Acyclovir 200 MG Capsule 400 MG PO (22:17)
[2019-09-26] MEDS: Ketorolac 30 MG/ML Syringe IV (22:17)
[2019-09-26] MEDS: cloNIDine HCl 0.1 MG Tablet PO (22:18)
[2019-09-27] MEDS: Buprenorphine HCl 2 MG TAB.SUBL SL ×3 (02:35→18:31)
[2019-09-27 04:00] VITALS: BP 128/86; PULSE 66; RESP 16; TEMP 36.7; O2SAT 99
[2019-09-27] MEDS: Acyclovir 200 MG Capsule 400 MG PO ×3 (06:16→22:35)
[2019-09-27] MEDS: Vancomycin IV 1,000 MG/200 ML BAG 200 MG IV ×2 (06:18→14:58)
[2019-09-27 06:56] LABS: Bedside Glucose 116 mg/dL (70-110)
[2019-09-27] MEDS: Ketorolac 30 MG/ML Syringe IV ×2 (07:56→16:23)
[2019-09-27] MEDS: Enoxaparin 40 MG/0.4 ML Syringe SC (08:04)
[2019-09-27 08:06] VITALS: BP 115/75; PULSE 62; RESP 18; TEMP 36.6; O2SAT 99
--- NOTE | 2019-09-27 09:12 | PN_ITS ---
Patient Problems: Active and Suspected Problems (Last Reviewed 06/27/19 @ 09:11 by Libra Gutierrez) Cellulitis and abscess of buttock (Acute) Abscess or cellulitis of perineum (Acute) Reason for Visit: Perineal abscess, IVDA Objective: No fever or chills. Blood pressure is acceptable. Vitals/I&O's: Vital Signs Temp Pulse Resp BP Pulse Ox 97.9 F 62 18 115/75 99 09/27/19 08:06 09/27/19 08:06 09/27/19 08:06 09/27/19 08:06 09/27/19 08:06 Oxygen Flow Rate (L/min) [2] 99 Oxygen Flow Rate (L/min) [1 ( 98 Initial Baseline)] Oxygen Delivery Method [3] Room Air Oxygen Delivery Method [2] Room Air Oxygen Delivery Method [1 ( Room Air Initial Baseline)] Oxygen Delivery Method Room Air Weight: 152 lb 8.958 oz Body Mass Index (BMI) 27.8 Intake and Output for Last 24 Hours 09/25/19 09/26/19 09/27/19 23:59 23:59 23:59 Intake Total 890.0 / 1390.0 2380 / 2380 Output Total 400 / 400 Balance 890.0 / 990.0 1979 General: Alert, Oriented x3, Cooperative HEENT: Atraumatic, PERRLA, EOMI, Normocephalic Neck: Supple, No JVD, Negative Carotid Bruits Lungs: Clear to auscultation, Normal air movement, No rhonchi, No wheeze, No rales Cardiovascular: Regular rate, Regular Rhythm, Normal S1, Normal S2, No murmurs Abdomen: Bowel Sounds Present, Soft, Non Tender, Non-Distended, - - : Examined in presence of nurseBeth. Patient has decreased swelling in the perineal region and buttock with improvement in tenderness and induration. Extremities: No edema, Capillary Refill Less than 3 Seconds Skin: Ulcer/ Wound - Abscesses status post incision and drainage in ED Musculoskeletal: No Tenderness to Palpation of Joints or Extremities Neurological: Cranial nerves II-XII grossly intact, Deep Tendon Reflexes 2+/4 and Symmetrical, Neuro grossly intact Psych/Mental Status: Normal Affect, Appropriate Laboratory Results 09/26/19 13:50: WBC 11.9 H, RBC 3.80 L, Hgb 11.1 L, Hct 33.8 L, MCV 88.9, MCH 29.2, MCHC 32.8, RDW Std Deviation 43.8, RDW Coeff of Donnell 13.4, Plt Count 387, MPV 9.0, Immature Gran % (Auto) 0.600, Neut % (Auto) 74.3 H, Lymph % (Auto) 17.9 L, [place] % (Auto) 4.5, Eos % (Auto) 2.2, Baso % (Auto) 0.5, Absolute Neuts (auto) 8.8 H, Absolute Lymphs (auto) 2.13, Nucleated RBC % 0 09/26/19 13:50: Sodium 139, Potassium 4.0, Chloride 105, Carbon Dioxide 29.0, Anion Gap 5, BUN 12, Creatinine 0.63, Estim Creat Clear Calc 109.84, Est GFR (MDRD) Af Amer 150, Est GFR (MDRD) Non-Af 124, BUN/Creatinine Ratio 19.1, Glucose 108 H, Calcium 9.1, Total Bilirubin 0.30, AST 35, ALT 142 H, Alkaline Phosphatase 151 H, Total Protein 7.6, Albumin 3.0 L, Globulin 4.6 H, Albumin/Globulin Ratio 0.7 L 09/26/19 13:50: Lactic Acid 1.9 09/26/19 13:50: Serum , Qual NEGATIVE 09/26/19 13:50: PT 12.9, INR 1.0 09/26/19 13:50: GGT 109 H 09/26/19 17:38: Ethyl Alcohol < 3.0 09/26/19 19:40: Urine Opiates Screen NEGATIVE, Urine Methadone Screen NEGATIVE, Ur Barbiturates Screen NEGATIVE, Ur Phencyclidine Scrn NEGATIVE, Ur Amphetamines Screen NEGATIVE, U Methamphetamin-MDMA NEGATIVE, U Benzodiazepines Scrn NEGATIVE, Urine Cocaine Screen NEGATIVE, U Cannabinoids Screen NEGATIVE, Ur Drug Screen Comment 09/26/19 19:40: Urine Color Yellow, Urine Clarity Sl. Cloudy, Urine pH 7.0, Ur Specific Ivor 1.010, Urine Protein Negative, Urine Glucose (UA) Normal, Urine Ketones Negative, Urine Occult Blood 25 H, Urine Nitrite Positive H, Urine Bilirubin Negative, Urine Urobilinogen Normal, Ur Leukocyte Esterase 100 H, Urine RBC 0-5 SEEN, Urine WBC 5-10 SEEN, Ur Squamous Epith Cells 0-5 SEEN, Urine Bacteria 2+, Urine Mucus 0 SEEN 09/26/19 22:09: POC Glucose 106 09/27/19 06:26: POC Glucose 116 H Current Medications Acetaminophen (Tylenol) 650 mg PO Q6H PRN PRN PRN Reason: Pain Score 1-10/Temp > 100.7 F Acyclovir (Zovirax) 400 mg PO TID [facility] Last Admin: 09/27/19 06:16 Dose: 400 mg Documented by: Al Hydroxide/Mg Hydroxide (Mylanta Ii) 30 ml PO Q6H PRN PRN PRN Reason: dyspesia Bisacodyl (Dulcolax) 10 mg RECTAL DAILY PRN PRN Reason: Constipation Buprenorphine HCl (Buprenorphine Hcl) 4 mg SL Q8H [facility]; Taper Stop: 09/29/19 18:14 Last Admin: 09/27/19 02:35 Dose: 4 mg Documented by: Clonidine (Catapres) 0.1 mg PO Q8H PRN PRN PRN Reason: RESTLESSNESS Last Admin: 09/26/19 22:18 Dose: 0.1 mg Documented by: Dicyclomine HCl (Bentyl) 20 mg PO Q6H PRN PRN PRN Reason: Abdominal Discomfort Docusate Sodium (Colace) 100 mg PO BID PRN PRN PRN Reason: Constipation Enoxaparin Sodium (Lovenox) 40 mg SC DAILY [facility] Last Admin: 09/27/19 08:04 Dose: 40 mg Documented by: Gabapentin (Neurontin) 300 mg PO Q8H PRN PRN PRN Reason: moderate to severe anxiety Hydroxyzine Pamoate (Vistaril Pamoate Capsule) 50 mg PO Q6H PRN PRN PRN Reason: mild anxiety Vancomycin IV Pharmacy to Dose (1 ea/ Sodium Chloride) 500 mls @ 250 mls/hr IV PRN PRN; Protocol Meropenem 1 gm/ Sodium (Chloride) 120 mls @ 33 mls/hr IV Q8 [facility] Last Admin: 09/27/19 06:15 Dose: 33 mls/hr Documented by: Sodium Chloride () 250 mls @ 15 mls/hr IV .[id number] PRN PRN Reason: Saline Flush Sodium Chloride () 250 mls @ 15 mls/hr IV .[id number] PRN PRN Reason: Additional IVPB Infusion Vancomycin HCl (Vancomycin) 1,000 mg in 200 mls @ 200 mls/hr IV Q8H [facility] Last Infusion: 09/27/19 07:35 Dose: Infused Documented by: Ketorolac Tromethamine (Toradol (Bkc)) 30 mg IV Q8H PRN PRN PRN Reason: Pain Score 4-10/10 Stop: 10/01/19 19:01 Last Admin: 09/27/19 07:56 Dose: 30 mg Documented by: Loperamide HCl (Imodium) 2 mg PO Q4H PRN PRN PRN Reason: LOOSE STOOLS Methocarbamol (Methocarbamol) 1,500 mg PO Q6H PRN PRN PRN Reason: MUSCLE SPASM Last Admin: 09/26/19 18:35 Dose: 1,500 mg Documented by: Nicotine (Nicoderm Cq (Pbkc)) 21 mg TRANSDERM. DAILY [facility] Last Admin: 09/27/19 08:04 Dose: 21 mg Documented by: Nutritional Formula (Lactose Free) (Ensure Enlive) 120 ml PO 4X/DAY [facility] Last Admin: 09/27/19 07:56 Dose: 120 ml Documented by: Ondansetron HCl (Zofran Odt) 8 mg PO Q8H PRN PRN PRN Reason: NAUSEA Senna (Senokot) 2 tablet PO QHS PRN PRN Reason: Constipation Sodium Chloride () 10 - 40 ml IV UD PRN PRN Reason: SALINE FLUSH Last Admin: 09/26/19 22:17 Dose: 10 ml Documented by: Sodium Chloride (0.9% Nacl (Sterile) Posiflush) 10 - 40 ml IV UD PRN PRN Reason: Port access or dressing change Trazodone HCl (Desyrel) 100 mg PO QHS PRN PRN PRN Reason: INSOMNIA STROKE Vital Signs/Narrative: Vital Signs Temp Pulse Resp BP Pulse Ox 09/27/19 08:06 97.9 F 62 18 115/75 99 Medical Necessity - Tobacco Use Smoking Status: Current every day smoker Tobacco Use: Cigarettes Assessment/Plan All Active Problems (Last Reviewed 06/27/19 @ 09:11 by Libra Gutierrez) Cellulitis and abscess of buttock (Acute) Abscess or cellulitis of perineum (Acute) Hives (Resolved) UTI (urinary tract infection) (Resolved) Bone fracture (Resolved) Alcohol abuse (Acute) Heroin withdrawal (Acute) Depression affecting (Acute) Positive urine drug screen (Resolved) Tobacco abuse (Acute) complicated by subutex maintenance, antepartum (Acute) History of drug abuse (Resolved) Breech presentation of fetus (Resolved) related abdominal pain of lower quadrant, antepartum (Resolved) Vaginal discharge during (Resolved) 23-year-old female with history of polysubstance use, heroine IV came to ER with left-sided perineal abscess status post incision and drainage in the ER. 1. Left-sided perineal abscess extending from labia/vaginal wall to buttock status post incision and drainage: Patient is being admitted by [facility] service. Started on IV vancomycin and meropenem. Patient got 2 g IV ceftriaxone in ER. 09/26: Gonococcus and Chlamydia PCR negative. Seen by [facility]. GGT 190. Wound culture shows preliminary staph aureus. Continue Vanco and meropenem until further culture report. Risk of gram-negative and anaerobes in view of perineal abscess along with MRSA history. 2. Polysubstance use including IV heroin use and dependence: Started on buprenorphine taper schedule along with other supportive medications. U tox is negative, alcohol level less than 3, GGT 109. 3. Chronic hepatitis C with elevated liver test: ALT is elevated. 4. Anxiety and depression: on supportive medications trazodone 5. Moderate risk in view of perineal abscess: Lovenox 40 mg subcu daily Microbiology Past 72 Hours 09/26/19 14:05 Wound Abcess - Groin Wound Culture - Preliminary Staphylococcus aureus Laboratory Results 09/26/19 13:50: WBC 11.9 H, RBC 3.80 L, Hgb 11.1 L, Hct 33.8 L, MCV 88.9, MCH 29.2, MCHC 32.8, RDW Std Deviation 43.8, RDW Coeff of Donnell 13.4, Plt Count 387, MPV 9.0, Immature Gran % (Auto) 0.600, Neut % (Auto) 74.3 H, Lymph % (Auto) 17.9 L, [place] % (Auto) 4.5, Eos % (Auto) 2.2, Baso % (Auto) 0.5, Absolute Neuts (auto) 8.8 H, Absolute Lymphs (auto) 2.13, Nucleated RBC % 0 09/26/19 13:50: Sodium 139, Potassium 4.0, Chloride 105, Carbon Dioxide 29.0, Anion Gap 5, BUN 12, Creatinine 0.63, Estim Creat Clear Calc 109.84, Est GFR (MDRD) Af Amer 150, Est GFR (MDRD) Non-Af 124, BUN/Creatinine Ratio 19.1, Glucose 108 H, Calcium 9.1, Total Bilirubin 0.30, AST 35, ALT 142 H, Alkaline Phosphatase 151 H, Total Protein 7.6, Albumin 3.0 L, Globulin 4.6 H, Albumin/Globulin Ratio 0.7 L 09/26/19 13:50: Lactic Acid 1.9 09/26/19 13:50: Serum , Qual NEGATIVE 09/26/19 13:50: PT 12.9, INR 1.0 09/26/19 13:50: GGT 109 H 09/26/19 17:38: Ethyl Alcohol < 3.0 09/26/19 19:40: Urine Opiates Screen NEGATIVE, Urine Methadone Screen NEGATIVE, Ur Barbiturates Screen NEGATIVE, Ur Phencyclidine Scrn NEGATIVE, Ur Amphetamines Screen NEGATIVE, U Methamphetamin-MDMA NEGATIVE, U Benzodiazepines Scrn NEGATIVE, Urine Cocaine Screen NEGATIVE, U Cannabinoids Screen NEGATIVE, Ur Drug Screen Comment 09/26/19 19:40: Urine Color Yellow, Urine Clarity Sl. Cloudy, Urine pH 7.0, Ur Specific Ivor 1.010, Urine Protein Negative, Urine Glucose (UA) Normal, Urine Ketones Negative, Urine Occult Blood 25 H, Urine Nitrite Positive H, Urine Bilirubin Negative, Urine Urobilinogen Normal, Ur Leukocyte Esterase 100 H, U rine RBC 0-5 SEEN, Urine WBC 5-10 SEEN, Ur Squamous Epith Cells 0-5 SEEN, Urine Bacteria 2+, Urine Mucus 0 SEEN 09/26/19 22:09: POC Glucose 106 09/27/19 03:58: Chlam trachomat DNA PCR Negative, N.gonorrhoeae DNA (PCR) Negative 09/27/19 06:26: POC Glucose 116 H Inpatient E&M: [id number] Subs Hosp L2
--- NOTE | 2019-09-27 09:26 | NURSING ---
Addendum entered by Shikha Sherwood 09/27/19 18:08: Keisha from [facility] came to see patient. is familiar with her and has worked with Tamiko for several years. plan to discharge back to grandmother's home Original Note: called [facility] to update them on patient admission and agreement to RAMP program. also notified that we do not have any notes regarding discharge planning in [facility].
--- NOTE | 2019-09-27 09:35 | PCM.PN.OB ---
Patient Problems: Active and Suspected Problems (Last Reviewed 06/27/19 @ 09:11 by Libra Gutierrez) Cellulitis and abscess of buttock (Acute) Abscess or cellulitis of perineum (Acute) Subjective: Pain mild. Denies N/V. Tolerating regular diet. No other c/o. - Physical Exam Vitals/I&O's: Vital Signs Temp Pulse Resp BP Pulse Ox 97.9 F 62 18 115/75 99 09/27/19 08:06 09/27/19 08:06 09/27/19 08:06 09/27/19 08:06 09/27/19 08:06 Oxygen Flow Rate (L/min) [2] 99 Oxygen Flow Rate (L/min) [1 ( 98 Initial Baseline)] Oxygen Delivery Method [3] Room Air Oxygen Delivery Method [2] Room Air Oxygen Delivery Method [1 ( Room Air Initial Baseline)] Oxygen Delivery Method Room Air Weight: 69.2 kg Body Mass Index (BMI) 27.8 Intake and Output for Last 24 Hours 09/25/19 09/26/19 09/27/19 23:59 23:59 23:59 Intake Total 890.0 / 1390.0 2380 / 2380 Output Total 400 / 400 Balance 890.0 / 990.0 1979 General: Alert, Cooperative, No apparent distress Abdomen: Soft, Non Tender, Non-Distended Skin: - - buttock incision draining. Similar induration and erythema to last night, not extending. Psych/Mental Status: Flat Affect, - - drowsy, falling asleep mid sentance Laboratory Results 09/26/19 13:50: WBC 11.9 H, RBC 3.80 L, Hgb 11.1 L, Hct 33.8 L, MCV 88.9, MCH 29.2, MCHC 32.8, RDW Std Deviation 43.8, RDW Coeff of Donnell 13.4, Plt Count 387, MPV 9.0, Immature Gran % (Auto) 0.600, Neut % (Auto) 74.3 H, Lymph % (Auto) 17.9 L, [place] % (Auto) 4.5, Eos % (Auto) 2.2, Baso % (Auto) 0.5, Absolute Neuts (auto) 8.8 H, Absolute Lymphs (auto) 2.13, Nucleated RBC % 0 09/26/19 13:50: Sodium 139, Potassium 4.0, Chloride 105, Carbon Dioxide 29.0, Anion Gap 5, BUN 12, Creatinine 0.63, Estim Creat Clear Calc 109.84, Est GFR (MDRD) Af Amer 150, Est GFR (MDRD) Non-Af 124, BUN/Creatinine Ratio 19.1, Glucose 108 H, Calcium 9.1, Total Bilirubin 0.30, AST 35, ALT 142 H, Alkaline Phosphatase 151 H, Total Protein 7.6, Albumin 3.0 L, Globulin 4.6 H, Albumin/Globulin Ratio 0.7 L 09/26/19 13:50: Lactic Acid 1.9 09/26/19 13:50: Serum , Qual NEGATIVE 09/26/19 13:50: PT 12.9, INR 1.0 09/26/19 13:50: GGT 109 H 09/26/19 17:38: Ethyl Alcohol < 3.0 09/26/19 19:40: Urine Opiates Screen NEGATIVE, Urine Methadone Screen NEGATIVE, Ur Barbiturates Screen NEGATIVE, Ur Phencyclidine Scrn NEGATIVE, Ur Amphetamines Screen NEGATIVE, U Methamphetamin-MDMA NEGATIVE, U Benzodiazepines Scrn NEGATIVE, Urine Cocaine Screen NEGATIVE, U Cannabinoids Screen NEGATIVE, Ur Drug Screen Comment 09/26/19 19:40: Urine Color Yellow, Urine Clarity Sl. Cloudy, Urine pH 7.0, Ur Specific [place] 1.010, Urine Protein Negative, Urine Glucose (UA) Normal, Urine Ketones Negative, Urine Occult Blood 25 H, Urine Nitrite Positive H, Urine Bilirubin Negative, Urine Urobilinogen Normal, Ur Leukocyte Esterase 100 H, Urine RBC 0-5 SEEN, Urine WBC 5-10 SEEN, Ur Squamous Epith Cells 0-5 SEEN, Urine Bacteria 2+, Urine Mucus 0 SEEN 09/26/19 22:09: POC Glucose 106 09/27/19 06:26: POC Glucose 116 H Current Medications Acetaminophen (Tylenol) 650 mg PO Q6H PRN PRN PRN Reason: Pain Score 1-10/Temp > 100.7 F Acyclovir (Zovirax) 400 mg PO TID [facility] Last Admin: 09/27/19 06:16 Dose: 400 mg Documented by: Al Hydroxide/Mg Hydroxide (Mylanta Ii) 30 ml PO Q6H PRN PRN PRN Reason: dyspesia Bisacodyl (Dulcolax) 10 mg RECTAL DAILY PRN PRN Reason: Constipation Buprenorphine HCl (Buprenorphine Hcl) 4 mg SL Q8H [facility]; Taper Stop: 09/29/19 18:14 Last Admin: 09/27/19 02:35 Dose: 4 mg Documented by: Clonidine (Catapres) 0.1 mg PO Q8H PRN PRN PRN Reason: RESTLESSNESS Last Admin: 09/26/19 22:18 Dose: 0.1 mg Documented by: Dicyclomine HCl (Bentyl) 20 mg PO Q6H PRN PRN PRN Reason: Abdominal Discomfort Docusate Sodium (Colace) 100 mg PO BID PRN PRN PRN Reason: Constipation Enoxaparin Sodium (Lovenox) 40 mg SC DAILY [facility] Last Admin: 09/27/19 08:04 Dose: 40 mg Documented by: Gabapentin (Neurontin) 300 mg PO Q8H PRN PRN PRN Reason: moderate to severe anxiety Hydroxyzine Pamoate (Vistaril Pamoate Capsule) 50 mg PO Q6H PRN PRN PRN Reason: mild anxiety Vancomycin IV Pharmacy to Dose (1 ea/ Sodium Chloride) 500 mls @ 250 mls/hr IV PRN PRN; Protocol Meropenem 1 gm/ Sodium (Chloride) 120 mls @ 33 mls/hr IV Q8 [facility] Last Admin: 09/27/19 06:15 Dose: 33 mls/hr Documented by: Sodium Chloride () 250 mls @ 15 mls/hr IV .[id number] PRN PRN Reason: Saline Flush Sodium Chloride () 250 mls @ 15 mls/hr IV .[id number] PRN PRN Reason: Additional IVPB Infusion Vancomycin HCl (Vancomycin) 1,000 mg in 200 mls @ 200 mls/hr IV Q8H [facility] Last Infusion: 09/27/19 07:35 Dose: Infused Documented by: Ketorolac Tromethamine (Toradol (Bkc)) 30 mg IV Q8H PRN PRN PRN Reason: Pain Score 4-10/10 Stop: 10/01/19 19:01 Last Admin: 09/27/19 07:56 Dose: 30 mg Documented by: Loperamide HCl (Imodium) 2 mg PO Q4H PRN PRN PRN Reason: LOOSE STOOLS Methocarbamol (Methocarbamol) 1,500 mg PO Q6H PRN PRN PRN Reason: MUSCLE SPASM Last Admin: 09/26/19 18:35 Dose: 1,500 mg Documented by: Nicotine (Nicoderm Cq (Pbkc)) 21 mg TRANSDERM. DAILY [facility] Last Admin: 09/27/19 08:04 Dose: 21 mg Documented by: Nutritional Formula (Lactose Free) (Ensure Enlive) 120 ml PO 4X/DAY [facility] Last Admin: 09/27/19 07:56 Dose: 120 ml Documented by: Ondansetron HCl (Zofran Odt) 8 mg PO Q8H PRN PRN PRN Reason: NAUSEA Senna (Senokot) 2 tablet PO QHS PRN PRN Reason: Constipation Sodium Chloride () 10 - 40 ml IV UD PRN PRN Reason: SALINE FLUSH Last Admin: 09/26/19 22:17 Dose: 10 ml Documented by: Sodium Chloride (0.9% Nacl (Sterile) Posiflush) 10 - 40 ml IV UD PRN PRN Reason: Port access or dressing change Trazodone HCl (Desyrel) 100 mg PO QHS PRN PRN PRN Reason: INSOMNIA Medical Necessity - Tobacco Use Smoking Status: Current every day smoker Tobacco Use: Cigarettes Assessment/Plan All Active Problems (Last Reviewed 06/27/19 @ 09:11 by Libra Gutierrez) Cellulitis and abscess of buttock (Acute) Abscess or cellulitis of perineum (Acute) Hives (Resolved) UTI (urinary tract infection) (Resolved) Bone fracture (Resolved) Alcohol abuse (Acute) Heroin withdrawal (Acute) Depression affecting (Acute) Positive urine drug screen (Resolved) Tobacco abuse (Acute) complicated by subutex maintenance, antepartum (Acute) History of drug abuse (Resolved) Breech presentation of fetus (Resolved) related abdominal pain of lower quadrant, antepartum (Resolved) Vaginal discharge during (Resolved) HD#2 buttock abscess, no labial/perineal abscess or cellulitis cultures pending continue antibiotics and heroin withdrawal treatment per medicine No surgery needed at this time can f/u in office for nexplanon insertion
[2019-09-27 12:18] LABS: Chlamydia Trachomatis by PCR Negative (Negative); Neisserai gonorrhoeae by PCR Negative (Negative); Probe Check PASS; Sample Adequacy Control PASS; Specimen Processing Control PASS
[2019-09-27 14:05] VITALS: BP 116/84; PULSE 73; RESP 18; TEMP 36.6; O2SAT 100
[2019-09-27 15:27] LABS: Absolute Lymphocyte Count 1.86 X10^3/uL (0.83-4.51); Absolute Neutrophil Count 3.6 X10^3/uL (2.0-7.7); Basophil# 0.05 X10^3/uL; Basophil% 0.8 % (0-1); Eosinophils% 4.8 % (0-5); Hemoglobin 10.3 g/dL (12.0-15.0); Lymphocyte # 1.86 X10^3/ul (4.0); Lymphocyte % 29.5 % (19-41); Mean Corp Hgb Conc 32.2 g/dL (32-36); Mean Corpuscular Hgb 29.5 pg (27.0-32.0); Mean Corpuscular Volume 91.7 fL (81-99); Mean Platelet Vol. 8.9 fl (6.2-12.0); Monocyte# 0.45 X10^3/uL; Monocyte% 7.1 % (0-10); NRBC Flagged by Analyzer 0 % (0-5); Neutrophil # 3.59 X10^3/uL (2.7-7.7); Neutrophil % 56.8 % (47-70); Platelet Count 356 K/mm3 (150-450); RBC Distribution Width CV 13.2 % (11.6-14.6); RBC Distribution Width SD 43.5 fl (35.1-43.9); Red Blood Count 3.49 M/mm3 (4.2-5.4); White Blood Count 6.3 K/mm3 (4.4-11.0)
[2019-09-27 16:01] LABS: ALB/GLOB Ratio 0.6 RATIO (0.9-2.4); AST(SGOT) 26 U/L (15-37); Alanine Aminotransfer ALT/SGPT 101 U/L (13-56); Albumin, Serum 2.4 g/dL (3.2-5.0); Alkaline Phosphatase 107 U/L (45-117); Anion Gap 6 (5-15); BUN 9 mg/dL (7-18); BUN/Creat Ratio 12.7 RATIO (10-20); Calcium,Total 8.1 mg/dL (8.5-10.1); Chloride 94 mmol/L (98-107); Creatinine, Serum 0.71 mg/dL (0.55-1.02); EST Glomerular Filtration Rate 108 mL/min (>60); Est Glom Filt Rate - Afr Amer 131 mL/min (>60); Estimated Creatinine Clearance 97.47 ml/min; Glucose 492 mg/dL (74-106); Potassium 3.8 mmol/L (3.5-5.1); Protein, Total 6.4 g/dL (6.4-8.2); Sodium Level 128 mmol/L (136-145)
[2019-09-27] MEDS: Methocarbamol 750 MG Tablet 1500 MG PO (16:24)
[2019-09-27] MEDS: 0.9% Saline Lock 10 ML Syringe IV (16:26)
[2019-09-27 16:35] LABS: Bedside Glucose 88 mg/dL (70-110)
[2019-09-27] MEDS: cloNIDine HCl 0.1 MG Tablet PO (17:15)
[2019-09-27] MEDS: Gabapentin 300 MG Capsule PO (17:17)
[2019-09-27 18:17] LABS: Vancomycin, Trough Level 9.4 ug/mL (5.0-15.0)
--- NOTE | 2019-09-27 18:38 | PCM.RX.CS ---
Consult Pharmacy has been consulted to manage selected antiobiotic: Vancomycin Type of Consult: Follow-up Suspected Infection: Skin/Soft tissue Labs: Sodium 128 mmol/L (136-145) L 09/27/19 15:15 Potassium 3.8 mmol/L (3.5-5.1) 09/27/19 15:15 Chloride 94 mmol/L (98-107) L 09/27/19 15:15 Carbon Dioxide 28.0 mmol/L (21.0-32.0) 09/27/19 15:15 Anion Gap 6 (5-15) 09/27/19 15:15 BUN 9 mg/dL (7-18) 09/27/19 15:15 Creatinine 0.71 mg/dL (0.55-1.02) 09/27/19 15:15 Est GFR (MDRD) Af Amer 131 mL/min (>60) 09/27/19 15:15 Est GFR (MDRD) Non-Af 108 mL/min (>60) 09/27/19 15:15 BUN/Creatinine Ratio 12.7 RATIO (-20) 09/27/19 15:15 Glucose 492 mg/dL (74-106) H* 09/27/19 15:15 Vancomycin Trough 9.4 ug/mL (5.0-15.0) 09/27/19 14:42 Microbiology: Microbiology 09/26/19 14:05 Wound Abcess - Groin Gram Stain - Final 09/26/19 14:05 Wound Abcess - Groin Wound Culture - Preliminary Staphylococcus aureus Goal Trough: 15-20 mcg/mL Pharmacy Plan for Drug Dosing: VANCOMYCIN LEVEL RECEIVED Current Vancomycin Dose: 1000MG IV q8h Number of Doses Received: 3 + 1750mg x1 in the ER 09/25 Vancomycin Level: 9.2 Hours Since Last Dose: ~8.5 Renal Function: 0.71 (was 0.63) Renal Function Trend: SrCr increasing Lab/Micro: Vancomycin Plan/Comments: will increase to 1250mg q8h starting 09/26 @ 0 Pending Level: 09/27 @ 2229 Pharmacy Service will continue to monitor and adjust dosing as required. Follow-Up Labs: Trough Vancomycin - 09/27
[2019-09-27 20:00] VITALS: BP 129/69; PULSE 72; RESP 16; TEMP 36.9; O2SAT 98
[2019-09-28] MEDS: 0.9% Saline Lock 10 ML Syringe IV ×4 (00:26→15:28)
[2019-09-28] MEDS: Ketorolac 30 MG/ML Syringe IV (00:26)
[2019-09-28] MEDS: Buprenorphine HCl 2 MG TAB.SUBL SL ×3 (01:59→18:31)
[2019-09-28] MEDS: Acetaminophen 325 MG Tablet 650 MG PO (02:01)
[2019-09-28] MEDS: Methocarbamol 750 MG Tablet 1500 MG PO (02:01)
[2019-09-28] MEDS: Gabapentin 300 MG Capsule PO ×3 (02:06→22:06)
[2019-09-28 02:15] VITALS: BP 110/66; PULSE 59; RESP 16; TEMP 36.7; O2SAT 100
[2019-09-28 02:16] LABS: Bedside Glucose 109 mg/dL (70-110)
[2019-09-28] MEDS: Acyclovir 200 MG Capsule 400 MG PO ×3 (05:50→22:07)
[2019-09-28 06:05] LABS: Absolute Lymphocyte Count 2.16 X10^3/uL (0.83-4.51); Absolute Neutrophil Count 3.1 X10^3/uL (2.0-7.7); Basophil# 0.05 X10^3/uL; Basophil% 0.8 % (0-1); Eosinophil# 0.34 X10^3/uL; Eosinophils% 5.3 % (0-5); Hematocrit 35.7 % (37-47); Hemoglobin 11.5 g/dL (12.0-15.0); Lymphocyte # 2.16 X10^3/ul (4.0); Lymphocyte % 33.8 % (19-41); Mean Corp Hgb Conc 32.2 g/dL (32-36); Mean Corpuscular Hgb 29.3 pg (27.0-32.0); Mean Corpuscular Volume 90.8 fL (81-99); Mean Platelet Vol. 8.7 fl (6.2-12.0); Monocyte# 0.61 X10^3/uL; Monocyte% 9.5 % (0-10); NRBC Flagged by Analyzer 0 % (0-5); Neutrophil # 3.11 X10^3/uL (2.7-7.7); Neutrophil % 48.6 % (47-70); Platelet Count 346 K/mm3 (150-450); RBC Distribution Width CV 13.2 % (11.6-14.6); RBC Distribution Width SD 43.8 fl (35.1-43.9); Red Blood Count 3.93 M/mm3 (4.2-5.4); White Blood Count 6.4 K/mm3 (4.4-11.0)
[2019-09-28 06:32] LABS: ALB/GLOB Ratio 0.6 RATIO (0.9-2.4); AST(SGOT) 29 U/L (15-37); Alanine Aminotransfer ALT/SGPT 93 U/L (13-56); Albumin, Serum 2.4 g/dL (3.2-5.0); Alkaline Phosphatase 100 U/L (45-117); Anion Gap 3 (5-15); BUN 9 mg/dL (7-18); Calcium,Total 8.3 mg/dL (8.5-10.1); Chloride 113 mmol/L (98-107); Creatinine, Serum 0.45 mg/dL (0.55-1.02); EST Glomerular Filtration Rate 183 mL/min (>60); Est Glom Filt Rate - Afr Amer 221 mL/min (>60); Estimated Creatinine Clearance 153.78 ml/min; Glucose 57 mg/dL (74-106); Potassium 4.1 mmol/L (3.5-5.1); Protein, Total 6.4 g/dL (6.4-8.2); Sodium Level 144 mmol/L (136-145)
[2019-09-28 06:45] LABS: Bedside Glucose 100 mg/dL (70-110)
--- NOTE | 2019-09-28 08:39 | PCM.PN.OB ---
Patient Problems: Active and Suspected Problems (Last Reviewed 06/27/19 @ 09:11 by Libra Gutierrez) Cellulitis and abscess of buttock (Acute) Abscess or cellulitis of perineum (Acute) Subjective: Patient complains of pain since packing change last night. States she needs something more pain with dressing changes. Tolerating regular diet. Wonders when she can go home. Denies fevers or chills - Physical Exam Vitals/I&O's: Vital Signs Temp Pulse Resp BP Pulse Ox 98.0 F 59 L 16 110/66 100 09/28/19 02:15 09/28/19 02:15 09/28/19 02:15 09/28/19 02:15 09/28/19 02:15 Oxygen Flow Rate (L/min) [2] 99 Oxygen Flow Rate (L/min) [1 ( 98 Initial Baseline)] Oxygen Delivery Method [3] Room Air Oxygen Delivery Method [2] Room Air Oxygen Delivery Method [1 ( Room Air Initial Baseline)] Oxygen Delivery Method Room Air Weight: 69.2 kg Body Mass Index (BMI) 27.8 Intake and Output for Last 24 Hours 09/26/19 09/27/19 09/28/19 23:59 23:59 23:59 Intake Total 890.0 / 1390.0 3780 / 4280 1195 / 1195 Output Total 400 / 400 Balance 890.0 / 990.0 3380 / 3880 1195 / 1195 General: - - Sleeping when I arrived to the room, drowsy during conversation. Skin: Ulcer/ Wound - Buttock wound is much less red and indurated. There is a small amount of purulent drainage on the packing. There is no erythema or induration of the labia or vulva. This is a buttocks abscess Microbiology Past 72 Hours 09/26/19 14:05 Wound Abcess - Groin Gram Stain - Final 09/26/19 14:05 Wound Abcess - Groin Wound Culture - Preliminary Staphylococcus aureus Laboratory Results 09/27/19 03:58: Chlam trachomat DNA PCR Negative, N.gonorrhoeae DNA (PCR) Negative 09/27/19 14:42: Vancomycin Trough 9.4 09/27/19 15:15: WBC 6.3, RBC 3.49 L, Hgb 10.3 L, Hct 32.0 L, MCV 91.7, MCH 29.5, MCHC 32.2, RDW Std Deviation 43.5, RDW Coeff of Donnell 13.2, Plt Count 356, MPV 8.9, Immature Gran % (Auto) 1.000 H, Neut % (Auto) 56.8, Lymph % (Auto) 29.5, [place] % (Auto) 7.1, Eos % (Auto) 4.8, Baso % (Auto) 0.8, Absolute Neuts (auto) 3.6, Absolute Lymphs (auto) 1.86, Nucleated RBC % 0 09/27/19 15:15: Sodium 128 L, Potassium 3.8, Chloride 94 L, Carbon Dioxide 28.0, Anion Gap 6, BUN 9, Creatinine 0.71, Estim Creat Clear Calc 97.47, Est GFR (MDRD) Af Amer 131, Est GFR (MDRD) Non-Af 108, BUN/Creatinine Ratio 12.7, Glucose 492 H*, Calcium 8.1 L, Total Bilirubin 0.60, AST 26, ALT 101 H, Alkaline Phosphatase 107, Total Protein 6.4, Albumin 2.4 L, Globulin 4.0, Albumin/Globulin Ratio 0.6 L 09/27/19 16:14: POC Glucose 88 09/28/19 01:56: POC Glucose 109 09/28/19 05:55: WBC 6.4, RBC 3.93 L, Hgb 11.5 L, Hct 35.7 L, MCV 90.8, MCH 29.3, MCHC 32.2, RDW Std Deviation 43.8, RDW Coeff of Donnell 13.2, Plt Count 346, MPV 8.7, Immature Gran % (Auto) 2.000 H, Neut % (Auto) 48.6, Lymph % (Auto) 33.8, [place] % (Auto) 9.5, Eos % (Auto) 5.3 H, Baso % (Auto) 0.8, Absolute Neuts (auto) 3.1, Absolute Lymphs (auto) 2.16, Nucleated RBC % 0 09/28/19 05:55: Sodium 144, Potassium 4.1, Chloride 113 H, Carbon Dioxide 28.0, Anion Gap 3 L, BUN 9, Creatinine 0.45 L, Estim Creat Clear Calc 153.78, Est GFR (MDRD) Af Amer 221, Est GFR (MDRD) Non-Af 183, BUN/Creatinine Ratio 20.0, Glucose 57 L, Calcium 8.3 L, Total Bilirubin 0.10 L, AST 29, ALT 93 H, Alkaline Phosphatase 100, Total Protein 6.4, Albumin 2.4 L, Globulin 4.0, Albumin/Globulin Ratio 0.6 L 09/28/19 06:38: POC Glucose 100 Current Medications Acetaminophen (Tylenol) 650 mg PO Q6H PRN PRN PRN Reason: Pain Score 1-10/Temp > 100.7 F Last Admin: 09/28/19 02:01 Dose: 650 mg Documented by: Acyclovir (Zovirax) 400 mg PO TID [facility] Last Admin: 09/28/19 05:50 Dose: 400 mg Documented by: Al Hydroxide/Mg Hydroxide (Mylanta Ii) 30 ml PO Q6H PRN PRN PRN Reason: dyspesia Bisacodyl (Dulcolax) 10 mg RECTAL DAILY PRN PRN Reason: Constipation Buprenorphine HCl (Buprenorphine Hcl) 2 mg SL Q8H [facility]; Taper Stop: 09/29/19 18:14 Last Admin: 09/28/19 01:59 Dose: 2 mg Documented by: Clonidine (Catapres) 0.1 mg PO Q8H PRN PRN PRN Reason: RESTLESSNESS Last Admin: 09/27/19 17:15 Dose: 0.1 mg Documented by: Dicyclomine HCl (Bentyl) 20 mg PO Q6H PRN PRN PRN Reason: Abdominal Discomfort Docusate Sodium (Colace) 100 mg PO BID PRN PRN PRN Reason: Constipation Enoxaparin Sodium (Lovenox) 40 mg SC DAILY [facility] Last Admin: 09/27/19 08:04 Dose: 40 mg Documented by: Gabapentin (Neurontin) 300 mg PO Q8H PRN PRN PRN Reason: moderate to severe anxiety Last Admin: 09/28/19 02:06 Dose: 300 mg Documented by: Hydroxyzine Pamoate (Vistaril Pamoate Capsule) 50 mg PO Q6H PRN PRN PRN Reason: mild anxiety Vancomycin IV Pharmacy to Dose (1 ea/ Sodium Chloride) 500 mls @ 250 mls/hr IV PRN PRN; Protocol Meropenem 1 gm/ Sodium (Chloride) 120 mls @ 33 mls/hr IV Q8 [facility] Last Admin: 09/28/19 05:47 Dose: 33 mls/hr Documented by: Sodium Chloride () 250 mls @ 15 mls/hr IV .[id number] PRN PRN Reason: Saline Flush Sodium Chloride () 250 mls @ 15 mls/hr IV .[id number] PRN PRN Reason: Additional IVPB Infusion Vancomycin HCl 1,250 mg/ (Sodium Chloride) 275 mls @ 167 mls/hr IV Q8H [facility] Last Admin: 09/28/19 06:39 Dose: 167 mls/hr Documented by: Ketorolac Tromethamine (Toradol (Bkc)) 30 mg IV Q8H PRN PRN PRN Reason: Pain Score 4-10/10 Stop: 10/01/19 19:01 Last Admin: 09/28/19 00:26 Dose: 30 mg Documented by: Loperamide HCl (Imodium) 2 mg PO Q4H PRN PRN PRN Reason: LOOSE STOOLS Methocarbamol (Methocarbamol) 1,500 mg PO Q6H PRN PRN PRN Reason: MUSCLE SPASM Last Admin: 09/28/19 02:01 Dose: 1,500 mg Documented by: Nicotine (Nicoderm Cq (Pbkc)) 21 mg TRANSDERM. DAILY [facility] Last Admin: 09/27/19 08:04 Dose: 21 mg Documented by: Nutritional Formula (Lactose Free) (Ensure Enlive) 120 ml PO 4X/DAY [facility] Last Admin: 09/27/19 22:39 Dose: 120 ml Documented by: Ondansetron HCl (Zofran Odt) 8 mg PO Q8H PRN PRN PRN Reason: NAUSEA Senna (Senokot) 2 tablet PO QHS PRN PRN Reason: Constipation Sodium Chloride () 10 - 40 ml IV UD PRN PRN Reason: SALINE FLUSH Last Admin: 09/28/19 05:53 Dose: 10 ml Documented by: Sodium Chloride (0.9% Nacl (Sterile) Posiflush) 10 - 40 ml IV UD PRN PRN Reason: Port access or dressing change Trazodone HCl (Desyrel) 100 mg PO QHS PRN PRN PRN Reason: INSOMNIA Medical Necessity - Tobacco Use Smoking Status: Current every day smoker Tobacco Use: Cigarettes Assessment/Plan All Active Problems (Last Reviewed 06/27/19 @ 09:11 by Libra Gutierrez) Cellulitis and abscess of buttock (Acute) Abscess or cellulitis of perineum (Acute) Hives (Resolved) UTI (urinary tract infection) (Resolved) Bone fracture (Resolved) Alcohol abuse (Acute) Heroin withdrawal (Acute) Depression affecting (Acute) Positive urine drug screen (Resolved) Tobacco abuse (Acute) complicated by subutex maintenance, antepartum (Acute) History of drug abuse (Resolved) Breech presentation of fetus (Resolved) related abdominal pain of lower quadrant, antepartum (Resolved) Vaginal discharge during (Resolved) Hospital day #3 admission for buttocks abscess. Cultures reviewed. Gonorrhea and chlamydia screen negative. Management of withdrawal and antibiotics per medicine team. Discussed with her she needs more pain medication for packing changes, this would be arranged by internal medicine as they are managing her Opiod abuse syndrome. May need wound nurse consult to arrange for packing changes at home No feller hand issues- would like nexplanon for contraception
--- NOTE | 2019-09-28 08:45 | PN_ITS ---
Patient Problems: Active and Suspected Problems (Last Reviewed 06/27/19 @ 09:11 by Libra Gutierrez) Cellulitis and abscess of buttock (Acute) Abscess or cellulitis of perineum (Acute) Reason for Visit: Follow-up for perineal abscess and polysubstance use. Objective: Patient has been refusing Vanco trough yesterday morning and change her dressing. No fever, tachycardia. Blood pressure maintained. Overall, patient looks better and she agreed to stay for IV antibiotic treatment and dressing change. On exam General: Alert, Oriented x3, Cooperative HEENT: Atraumatic, PERRLA, EOMI, Normocephalic Neck: Supple, No JVD, Negative Carotid Bruits Lungs: Clear to auscultation, Normal air movement, No rhonchi, No wheeze, No rales Cardiovascular: Regular rate, Regular Rhythm, Normal S1, Normal S2, No murmurs Abdomen: Bowel Sounds Present, Soft, Non Tender, Non-Distended : Examined in presence of nurse, Beth. Patient has decreased swelling in the perineal region and buttock with improvement in tenderness and induration. Extremities: No edema, Capillary Refill Less than 3 Seconds Skin: Ulcer/ Wound - Abscesses status post incision and drainage in ED Musculoskeletal: No Tenderness to Palpation of Joints or Extremities Neurological: Cranial nerves II-XII grossly intact, Deep Tendon Reflexes 2+/4 and Symmetrical, Neuro grossly intact Psych/Mental Status: Normal Affect, Appropriate Vitals/I&O's: Vital Signs Temp Pulse Resp BP Pulse Ox 98.0 F 59 L 16 110/66 100 09/28/19 02:15 09/28/19 02:15 09/28/19 02:15 09/28/19 02:15 09/28/19 02:15 Oxygen Flow Rate (L/min) [2] 99 Oxygen Flow Rate (L/min) [1 ( 98 Initial Baseline)] Oxygen Delivery Method [3] Room Air Oxygen Delivery Method [2] Room Air Oxygen Delivery Method [1 ( Room Air Initial Baseline)] Oxygen Delivery Method Room Air Weight: 152 lb 8.958 oz Body Mass Index (BMI) 27.8 Intake and Output for Last 24 Hours 09/26/19 09/27/19 09/28/19 23:59 23:59 23:59 Intake Total 890.0 / 1390.0 3780 / 4280 1195 / 1195 Output Total 400 / 400 Balance 890.0 / 990.0 3380 / 3880 1195 / 1195 Microbiology Past 72 Hours 09/26/19 14:05 Wound Abcess - Groin Gram Stain - Final 09/26/19 14:05 Wound Abcess - Groin Wound Culture - Preliminary Staphylococcus aureus Laboratory Results 09/27/19 03:58: Chlam trachomat DNA PCR Negative, N.gonorrhoeae DNA (PCR) Negative 09/27/19 14:42: Vancomycin Trough 9.4 09/27/19 15:15: WBC 6.3, RBC 3.49 L, Hgb 10.3 L, Hct 32.0 L, MCV 91.7, MCH 29.5, MCHC 32.2, RDW Std Deviation 43.5, RDW Coeff of Donnell 13.2, Plt Count 356, MPV 8.9, Immature Gran % (Auto) 1.000 H, Neut % (Auto) 56.8, Lymph % (Auto) 29.5, [place] % (Auto) 7.1, Eos % (Auto) 4.8, Baso % (Auto) 0.8, Absolute Neuts (auto) 3.6, Absolute Lymphs (auto) 1.86, Nucleated RBC % 0 09/27/19 15:15: Sodium 128 L, Potassium 3.8, Chloride 94 L, Carbon Dioxide 28.0, Anion Gap 6, BUN 9, Creatinine 0.71, Estim Creat Clear Calc 97.47, Est GFR (MDRD) Af Amer 131, Est GFR (MDRD) Non-Af 108, BUN/Creatinine Ratio 12.7, Glucose 492 H*, Calcium 8.1 L, Total Bilirubin 0.60, AST 26, ALT 101 H, Alkaline Phosphatase 107, Total Protein 6.4, Albumin 2.4 L, Globulin 4.0, Albumin/Globulin Ratio 0.6 L 09/27/19 16:14: POC Glucose 88 09/28/19 01:56: POC Glucose 109 09/28/19 05:55: WBC 6.4, RBC 3.93 L, Hgb 11.5 L, Hct 35.7 L, MCV 90.8, MCH 29.3, MCHC 32.2, RDW Std Deviation 43.8, RDW Coeff of Donnell 13.2, Plt Count 346, MPV 8.7, Immature Gran % (Auto) 2.000 H, Neut % (Auto) 48.6, Lymph % (Auto) 33.8, [place] % (Auto) 9.5, Eos % (Auto) 5.3 H, Baso % (Auto) 0.8, Absolute Neuts (auto) 3.1, Absolute Lymphs (auto) 2.16, Nucleated RBC % 0 09/28/19 05:55: Sodium 144, Potassium 4.1, Chloride 113 H, Carbon Dioxide 28.0, Anion Gap 3 L, BUN 9, Creatinine 0.45 L, Estim Creat Clear Calc 153.78, Est GFR (MDRD) Af Amer 221, Est GFR (MDRD) Non-Af 183, BUN/Creatinine Ratio 20.0, Glucose 57 L, Calcium 8.3 L, Total Bilirubin 0.10 L, AST 29, ALT 93 H, Alkaline Phosphatase 100, Total Protein 6.4, Albumin 2.4 L, Globulin 4.0, Albumin/Globulin Ratio 0.6 L 09/28/19 06:38: POC Glucose 100 Current Medications Acetaminophen (Tylenol) 650 mg PO Q6H PRN PRN PRN Reason: Pain Score 1-10/Temp > 100.7 F Last Admin: 09/28/19 02:01 Dose: 650 mg Documented by: Acyclovir (Zovirax) 400 mg PO TID [facility] Last Admin: 09/28/19 05:50 Dose: 400 mg Documented by: Al Hydroxide/Mg Hydroxide (Mylanta Ii) 30 ml PO Q6H PRN PRN PRN Reason: dyspesia Bisacodyl (Dulcolax) 10 mg RECTAL DAILY PRN PRN Reason: Constipation Buprenorphine HCl (Buprenorphine Hcl) 2 mg SL Q8H [facility]; Taper Stop: 09/29/19 18:14 Last Admin: 09/28/19 01:59 Dose: 2 mg Documented by: Clonidine (Catapres) 0.1 mg PO Q8H PRN PRN PRN Reason: RESTLESSNESS Last Admin: 09/27/19 17:15 Dose: 0.1 mg Documented by: Dicyclomine HCl (Bentyl) 20 mg PO Q6H PRN PRN PRN Reason: Abdominal Discomfort Docusate Sodium (Colace) 100 mg PO BID PRN PRN PRN Reason: Constipation Enoxaparin Sodium (Lovenox) 40 mg SC DAILY [facility] Last Admin: 09/27/19 08:04 Dose: 40 mg Documented by: Gabapentin (Neurontin) 300 mg PO Q8H PRN PRN PRN Reason: moderate to severe anxiety Last Admin: 09/28/19 02:06 Dose: 300 mg Documented by: Hydroxyzine Pamoate (Vistaril Pamoate Capsule) 50 mg PO Q6H PRN PRN PRN Reason: mild anxiety Vancomycin IV Pharmacy to Dose (1 ea/ Sodium Chloride) 500 mls @ 250 mls/hr IV PRN PRN; Protocol Meropenem 1 gm/ Sodium (Chloride) 120 mls @ 33 mls/hr IV Q8 [facility] Last Admin: 09/28/19 05:47 Dose: 33 mls/hr Documented by: Sodium Chloride () 250 mls @ 15 mls/hr IV .[id number] PRN PRN Reason: Saline Flush Sodium Chloride () 250 mls @ 15 mls/hr IV .[id number] PRN PRN Reason: Additional IVPB Infusion Vancomycin HCl 1,250 mg/ (Sodium Chloride) 275 mls @ 167 mls/hr IV Q8H [facility] Last Admin: 09/28/19 06:39 Dose: 167 mls/hr Documented by: Ketorolac Tromethamine (Toradol (Bkc)) 30 mg IV Q8H PRN PRN PRN Reason: Pain Score 4-10/10 Stop: 10/01/19 19:01 Last Admin: 09/28/19 00:26 Dose: 30 mg Documented by: Loperamide HCl (Imodium) 2 mg PO Q4H PRN PRN PRN Reason: LOOSE STOOLS Methocarbamol (Methocarbamol) 1,500 mg PO Q6H PRN PRN PRN Reason: MUSCLE SPASM Last Admin: 09/28/19 02:01 Dose: 1,500 mg Documented by: Nicotine (Nicoderm Cq (Pbkc)) 21 mg TRANSDERM. DAILY [facility] Last Admin: 09/27/19 08:04 Dose: 21 mg Documented by: Nutritional Formula (Lactose Free) (Ensure Enlive) 120 ml PO 4X/DAY [facility] Last Admin: 09/27/19 22:39 Dose: 120 ml Documented by: Ondansetron HCl (Zofran Odt) 8 mg PO Q8H PRN PRN PRN Reason: NAUSEA Senna (Senokot) 2 tablet PO QHS PRN PRN Reason: Constipation Sodium Chloride () 10 - 40 ml IV UD PRN PRN Reason: SALINE FLUSH Last Admin: 09/28/19 05:53 Dose: 10 ml Documented by: Sodium Chloride (0.9% Nacl (Sterile) Posiflush) 10 - 40 ml IV UD PRN PRN Reason: Port access or dressing change Trazodone HCl (Desyrel) 100 mg PO QHS PRN PRN PRN Reason: INSOMNIA Medical Necessity - Tobacco Use Smoking Status: Current every day smoker Tobacco Use: Cigarettes Assessment/Plan All Active Problems (Last Reviewed 06/27/19 @ 09:11 by Libra Gutierrez) Cellulitis and abscess of buttock (Acute) Abscess or cellulitis of perineum (Acute) Hives (Resolved) UTI (urinary tract infection) (Resolved) Bone fracture (Resolved) Alcohol abuse (Acute) Heroin withdrawal (Acute) Depression affecting (Acute) Positive urine drug screen (Resolved) Tobacco abuse (Acute) complicated by subutex maintenance, antepartum (Acute) History of drug abuse (Resolved) Breech presentation of fetus (Resolved) related abdominal pain of lower quadrant, antepartum (Resolved) Vaginal discharge during (Resolved) 23-year-old female with history of polysubstance use, heroine IV came to ER with left-sided perineal abscess status post incision and drainage in the ER. 1. Left-sided perineal abscess extending from labia/vaginal wall to buttock status post incision and drainage: Patient is being admitted by COMPUTER SYSTEMS MANAGER service. Started on IV vancomycin and meropenem. Patient got 2 g IV ceftriaxone in ER. 09/26: Gonococcus and Chlamydia PCR negative. Seen by PRIVATE CLIENT ADVISOR. GGT 190. Wound culture shows preliminary staph aureus. Continue Vanco and meropenem until further culture report. Risk of gram-negative and anaerobes in view of perineal abscess along with MRSA history. 09/27: Prelim Gram stain shows staph aureus. Blood culture negative for more than 48 hours. Leukocytosis resolved 2. Polysubstance use including IV heroin use and dependence: Started on buprenorphine taper schedule along with other supportive medications. U tox is negative, alcohol level less than 3, GGT 109. Critical level of glucose 492 in BMP is error. Same time fingerstick shows 88 mg/dL. 3. Chronic hepatitis C with elevated liver test: Repeat liver chemistry shows improvement. 4. Anxiety and depression: on supportive medications trazodone 5. Moderate risk in view of perineal abscess: Lovenox 40 mg subcut daily Plan: Follow-up for wound culture and narrow down antibiotic. Wound care care nurse consult for dressing change and plan for home dressing or home health care and follow-up in wound center. Microbiology Past 72 Hours 09/26/19 14:05 Wound Abcess - Groin Gram Stain - Final 09/26/19 14:05 Wound Abcess - Groin Wound Culture - Preliminary Staphylococcus aureus Laboratory Results 09/27/19 03:58: Chlam trachomat DNA PCR Negative, N.gonorrhoeae DNA (PCR) Negative 09/27/19 14:42: Vancomycin Trough 9.4 09/27/19 15:15: WBC 6.3, RBC 3.49 L, Hgb 10.3 L, Hct 32.0 L, MCV 91.7, MCH 29.5, MCHC 32.2, RDW Std Deviation 43.5, RDW Coeff of Donnell 13.2, Plt Count 356, MPV 8.9, Immature Gran % (Auto) 1.000 H, Neut % (Auto) 56.8, Lymph % (Auto) 29.5, [place] % (Auto) 7.1, Eos % (Auto) 4.8, Baso % (Auto) 0.8, Absolute Neuts (auto) 3.6, Absolute Lymphs (auto) 1.86, Nucleated RBC % 0 09/27/19 15:15: Sodium 128 L, Potassium 3.8, Chloride 94 L, Carbon Dioxide 28.0, Anion Gap 6, BUN 9, Creatinine 0.71, Estim Creat Clear Calc 97.47, Est GFR (MDRD) Af Amer 131, Est GFR (MDRD) Non-Af 108, BUN/Creatinine Ratio 12.7, Glucose 492 H*, Calcium 8.1 L, Total Bilirubin 0.60, AST 26, ALT 101 H, Alkaline Phosphatase 107, Total Protein 6.4, Albumin 2.4 L, Globulin 4.0, Albumin/Globulin Ratio 0.6 L 09/27/19 16:14: POC Glucose 88 09/28/19 01:56: POC Glucose 109 09/28/19 05:55: WBC 6.4, RBC 3.93 L, Hgb 11.5 L, Hct 35.7 L, MCV 90.8, MCH 29.3, MCHC 32.2, RDW Std Deviation 43.8, RDW Coeff of Donnell 13.2, Plt Count 346, MPV 8.7, Immature Gran % (Auto) 2.000 H, Neut % (Auto) 48.6, Lymph % (Auto) 33.8, [place] % (Auto) 9.5, Eos % (Auto) 5.3 H, Baso % (Auto) 0.8, Absolute Neuts (auto) 3.1, Absolute Lymphs (auto) 2.16, Nucleated RBC % 0 09/28/19 05:55: Sodium 144, Potassium 4.1, Chloride 113 H, Carbon Dioxide 28.0, Anion Gap 3 L, BUN 9, Creatinine 0.45 L, Estim Creat Clear Calc 153.78, Est GFR (MDRD) Af Amer 221, Est GFR (MDRD) Non-Af 183, BUN/Creatinine Ratio 20.0, Glucose 57 L, Calcium 8.3 L, Total Bilirubin 0.10 L, AST 29, ALT 93 H, Alkaline Phosphatase 100, Total Protein 6.4, Albumin 2.4 L, Globulin 4.0, Albumin/Globulin Ratio 0.6 L 09/28/19 06:38: POC Glucose 100 Inpatient E&M: [id number] Subs Hosp L2
[2019-09-28 09:59] VITALS: BP 110/65; PULSE 79; RESP 16; TEMP 36.7; O2SAT 97
[2019-09-28] MEDS: Enoxaparin 40 MG/0.4 ML Syringe SC (10:06)
[2019-09-28] MEDS: hydrOXYzine PAM 25 MG Capsule 50 MG PO (11:48)
[2019-09-28 12:01] LABS: Bedside Glucose 87 mg/dL (70-110)
[2019-09-28] MEDS: Morphine 2 MG/ML Syringe IV (15:15)
[2019-09-28] MEDS: cloNIDine HCl 0.1 MG Tablet PO (15:36)
[2019-09-28 16:51] LABS: Bedside Glucose 88 mg/dL (70-110)
[2019-09-28 22:00] VITALS: BP 111/83; PULSE 93; RESP 16; TEMP 36.8; O2SAT 100
[2019-09-29 00:21] LABS: Vancomycin, Trough Level 48.6 ug/mL (5.0-15.0)
--- NOTE | 2019-09-29 00:52 | PCM.RX.CS ---
Consult Pharmacy has been consulted to manage selected antiobiotic: Vancomycin Type of Consult: Follow-up Labs: Sodium 144 mmol/L (136-145) 09/28/19 05:55 Potassium 4.1 mmol/L (3.5-5.1) 09/28/19 05:55 Chloride 113 mmol/L (98-107) H 09/28/19 05:55 Carbon Dioxide 28.0 mmol/L (21.0-32.0) 09/28/19 05:55 Anion Gap 3 (5-15) L 09/28/19 05:55 BUN 9 mg/dL (7-18) 09/28/19 05:55 Creatinine 0.45 mg/dL (0.55-1.02) L 09/28/19 05:55 Est GFR (MDRD) Af Amer 221 mL/min (>60) 09/28/19 05:55 Est GFR (MDRD) Non-Af 183 mL/min (>60) 09/28/19 05:55 BUN/Creatinine Ratio 20.0 RATIO (10-20) 09/28/19 05:55 Glucose 57 mg/dL (74-106) L 09/28/19 05:55 Vancomycin Trough 48.6 ug/mL (5.0-15.0) H 09/28/19 23:12 Microbiology: Microbiology 09/26/19 13:50 Blood Culture (Wb) - Neck Blood Culture - Preliminary No growth in 48 hours. 09/26/19 13:50 Blood Culture (Wb) - Anticubital Right Blood Culture - Preliminary No growth in 48 hours. 09/26/19 19:40 Urine, Clean Catch Urine Culture - Preliminary Culture exhibits no growth. 09/26/19 14:05 Wound Abcess - Groin Gram Stain - Final 09/26/19 14:05 Wound Abcess - Groin Wound Culture - Final Meth. resistant Staph. aureus Goal Trough: 15-20 mcg/mL Pharmacy Plan for Drug Dosing: Pharmacy Service will continue to monitor and adjust dosing as required. TROUGH DRAWN AFTER FLAKITO QUINTERO TROUGH WITH NEXT DOSE Follow-Up Labs: Trough Vancomycin Labs to be done on [date and time ordered]: 09/28 @ [id number]
[2019-09-29] MEDS: Morphine 2 MG/ML Syringe IV ×2 (02:34→17:23)
[2019-09-29 04:00] VITALS: BP 109/69; PULSE 63; RESP 16; TEMP 36.6; O2SAT 97
[2019-09-29] MEDS: Acyclovir 200 MG Capsule 400 MG PO ×3 (06:10→22:12)
[2019-09-29] MEDS: Buprenorphine HCl 2 MG TAB.SUBL SL (06:10)
[2019-09-29 06:26] LABS: Bedside Glucose 118 mg/dL (70-110)
[2019-09-29 07:26] LABS: Vancomycin, Trough Level 18.7 ug/mL (5.0-15.0)
--- NOTE | 2019-09-29 08:52 | PCM.RX.CS ---
Consult Pharmacy has been consulted to manage selected antiobiotic: Vancomycin Type of Consult: Follow-up Suspected Infection: Skin/Soft tissue Labs: Sodium 144 mmol/L (136-145) 09/28/19 05:55 Potassium 4.1 mmol/L (3.5-5.1) 09/28/19 05:55 Chloride 113 mmol/L (98-107) H 09/28/19 05:55 Carbon Dioxide 28.0 mmol/L (21.0-32.0) 09/28/19 05:55 Anion Gap 3 (5-15) L 09/28/19 05:55 BUN 9 mg/dL (7-18) 09/28/19 05:55 Creatinine 0.45 mg/dL (0.55-1.02) L 09/28/19 05:55 Est GFR (MDRD) Af Amer 221 mL/min (>60) 09/28/19 05:55 Est GFR (MDRD) Non-Af 183 mL/min (>60) 09/28/19 05:55 BUN/Creatinine Ratio 20.0 RATIO (10-20) 09/28/19 05:55 Glucose 57 mg/dL (74-106) L 09/28/19 05:55 Vancomycin Trough 18.7 ug/mL (5.0-15.0) H 09/29/19 06:46 Microbiology: Microbiology 09/26/19 19:40 Urine, Clean Catch Urine Culture - Final Culture exhibits no growth. 09/26/19 13:50 Blood Culture (Wb) - Neck Blood Culture - Preliminary No growth in 48 hours. 09/26/19 13:50 Blood Culture (Wb) - Anticubital Right Blood Culture - Preliminary No growth in 48 hours. 09/26/19 14:05 Wound Abcess - Groin Gram Stain - Final 09/26/19 14:05 Wound Abcess - Groin Wound Culture - Final Meth. resistant Staph. aureus Pharmacy Plan for Drug Dosing: VANCOMYCIN LEVEL RECEIVED Current Vancomycin Dose: 1250mg IV Q8h Number of Doses Received: 4 Vancomycin Level: 18.7 Hours Since Last Dose: 8.5 Renal Function: 0.45 (09/27) Renal Function Trend: stable Lab/Micro: (+) MRSA wound culture Vancomycin Plan/Comments: Trough within goal range of 15-20. Will continue current dosing as planned. Instead of getting trough in 4 days per protocol, since pt on q8hr dosing, will get another trough in 2 days. Pharmacy Service will continue to monitor and adjust dosing as required.
--- NOTE | 2019-09-29 09:35 | PCM.PN.OB ---
Patient Problems: Active and Suspected Problems (Last Reviewed 06/27/19 @ 09:11 by Libra Gutierrez) Cellulitis and abscess of buttock (Acute) Abscess or cellulitis of perineum (Acute) Subjective: Patient doing well. Denies fevers, chills, increased pain. She is asking when she could go home. She is concerned about receiving pain medication during packing changes. Tolerating her breakfast without nausea or vomiting. She is worried if the shower will worsen her pain. - Physical Exam Vitals/I&O's: Vital Signs Temp Pulse Resp BP Pulse Ox 97.9 F 63 16 109/69 97 09/29/19 04:00 09/29/19 04:00 09/29/19 04:00 09/29/19 04:00 09/29/19 04:00 Oxygen Flow Rate (L/min) [2] 99 Oxygen Flow Rate (L/min) [1 ( 98 Initial Baseline)] Oxygen Delivery Method [3] Room Air Oxygen Delivery Method [2] Room Air Oxygen Delivery Method [1 ( Room Air Initial Baseline)] Oxygen Delivery Method Room Air Weight: 152 lb 8.958 oz Body Mass Index (BMI) 27.8 Intake and Output for Last 24 Hours 09/27/19 09/28/19 09/29/19 23:59 23:59 23:59 Intake Total 3780 / 4280 3015 / 3515 800 / 800 Output Total 400 / 400 Balance 3380 / 3880 3015 / 3515 800 / 800 General: Alert, No apparent distress Extremities: No edema Skin: - - No erythema, fluctuance, swelling of the area. Packing in place. Neurological: Neuro grossly intact Psych/Mental Status: Normal Affect, Appropriate Microbiology Past 72 Hours 09/26/19 19:40 Urine, Clean Catch Urine Culture - Final Culture exhibits no growth. 09/26/19 13:50 Blood Culture (Wb) - Neck Blood Culture - Preliminary No growth in 48 hours. 09/26/19 13:50 Blood Culture (Wb) - Anticubital Right Blood Culture - Preliminary No growth in 48 hours. 09/26/19 14:05 Wound Abcess - Groin Gram Stain - Final 09/26/19 14:05 Wound Abcess - Groin Wound Culture - Final Meth. resistant Staph. aureus Laboratory Results 09/28/19 11:42: POC Glucose 87 09/28/19 16:45: POC Glucose 88 09/28/19 23:12: Vancomycin Trough 48.6 H 09/29/19 06:18: POC Glucose 118 H 09/29/19 06:46: Vancomycin Trough 18.7 H Current Medications Acetaminophen (Tylenol) 650 mg PO Q6H PRN PRN PRN Reason: Pain Score 1-10/Temp > 100.7 F Last Admin: 09/28/19 02:01 Dose: 650 mg Documented by: Acyclovir (Zovirax) 400 mg PO TID [facility] Last Admin: 09/29/19 06:10 Dose: 400 mg Documented by: Al Hydroxide/Mg Hydroxide (Mylanta Ii) 30 ml PO Q6H PRN PRN PRN Reason: dyspesia Bisacodyl (Dulcolax) 10 mg RECTAL DAILY PRN PRN Reason: Constipation Buprenorphine HCl (Buprenorphine Hcl) 2 mg SL Q12H [facility]; Taper Stop: 09/29/19 18:14 Last Admin: 09/29/19 06:10 Dose: 2 mg Documented by: Clonidine (Catapres) 0.1 mg PO Q8H PRN PRN PRN Reason: RESTLESSNESS Last Admin: 09/28/19 15:36 Dose: 0.1 mg Documented by: Dicyclomine HCl (Bentyl) 20 mg PO Q6H PRN PRN PRN Reason: Abdominal Discomfort Docusate Sodium (Colace) 100 mg PO BID PRN PRN PRN Reason: Constipation Enoxaparin Sodium (Lovenox) 40 mg SC DAILY [facility] Last Admin: 09/28/19 10:06 Dose: 40 mg Documented by: Gabapentin (Neurontin) 300 mg PO Q8H PRN PRN PRN Reason: moderate to severe anxiety Last Admin: 09/28/19 22:06 Dose: 300 mg Documented by: Hydroxyzine Pamoate (Vistaril Pamoate Capsule) 50 mg PO Q6H PRN PRN PRN Reason: mild anxiety Last Admin: 09/28/19 11:48 Dose: 50 mg Documented by: Vancomycin IV Pharmacy to Dose (1 ea/ Sodium Chloride) 500 mls @ 250 mls/hr IV PRN PRN; Protocol Sodium Chloride () 250 mls @ 15 mls/hr IV .[id number] PRN PRN Reason: Saline Flush Sodium Chloride () 250 mls @ 15 mls/hr IV .[id number] PRN PRN Reason: Additional IVPB Infusion Vancomycin HCl 1,250 mg/ (Sodium Chloride) 275 mls @ 167 mls/hr IV Q8H [facility] Last Admin: 09/29/19 07:43 Dose: 167 mls/hr Documented by: Ketorolac Tromethamine (Toradol (Bkc)) 30 mg IV Q8H PRN PRN PRN Reason: Pain Score 4-10/10 Stop: 10/01/19 19:01 Last Admin: 09/28/19 00:26 Dose: 30 mg Documented by: Loperamide HCl (Imodium) 2 mg PO Q4H PRN PRN PRN Reason: LOOSE STOOLS Methocarbamol (Methocarbamol) 1,500 mg PO Q6H PRN PRN PRN Reason: MUSCLE SPASM Last Admin: 09/28/19 02:01 Dose: 1,500 mg Documented by: Morphine Sulfate () 2 mg IV BID PRN PRN PRN Reason: While changing dressing Last Admin: 09/29/19 02:34 Dose: 2 mg Documented by: Nicotine (Nicoderm Cq (Pbkc)) 21 mg TRANSDERM. DAILY [facility] Last Admin: 09/28/19 10:08 Dose: 21 mg Documented by: Nutritional Formula (Lactose Free) (Ensure Enlive) 120 ml PO 4X/DAY [facility] Last Admin: 09/28/19 22:07 Dose: 120 ml Documented by: Ondansetron HCl (Zofran Odt) 8 mg PO Q8H PRN PRN PRN Reason: NAUSEA Senna (Senokot) 2 tablet PO QHS PRN PRN Reason: Constipation Sodium Chloride () 10 - 40 ml IV UD PRN PRN Reason: SALINE FLUSH Last Admin: 09/28/19 15:28 Dose: 10 ml Documented by: Sodium Chloride (0.9% Nacl (Sterile) Posiflush) 10 - 40 ml IV UD PRN PRN Reason: Port access or dressing change Trazodone HCl (Desyrel) 100 mg PO QHS PRN PRN PRN Reason: INSOMNIA Medical Necessity - Tobacco Use Smoking Status: Current every day smoker Tobacco Use: Cigarettes Assessment/Plan All Active Problems (Last Reviewed 06/27/19 @ 09:11 by Libra Gutierrez) Cellulitis and abscess of buttock (Acute) Abscess or cellulitis of perineum (Acute) Hives (Resolved) UTI (urinary tract infection) (Resolved) Bone fracture (Resolved) Alcohol abuse (Acute) Heroin withdrawal (Acute) Depression affecting (Acute) Positive urine drug screen (Resolved) Tobacco abuse (Acute) complicated by subutex maintenance, antepartum (Acute) History of drug abuse (Resolved) Breech presentation of fetus (Resolved) related abdominal pain of lower quadrant, antepartum (Resolved) Vaginal discharge during (Resolved) Patient admitted with a perineal abscess. Status post incision and drainage in the ER. - Remains afebrile. Area of abscess appears to be improving. Wound cx results reviewed. Likely transition to oral antibiotics today pending further recommendations from medicine. Will need home health care for packing changes, consult placed by medicine - Pt instructed to follow up in the office this week for Nexplanon placement - Dispo: Likely d/c tomorrow pending medicine recs. Pt established with [facility], and says her discharge plan is to live with her grandmother Please call with any questions or concerns: [phone].
[2019-09-29] MEDS: Enoxaparin 40 MG/0.4 ML Syringe SC (10:04)
[2019-09-29] MEDS: 0.9% Saline Lock 10 ML Syringe IV ×3 (10:12→22:12)
[2019-09-29] MEDS: Gabapentin 300 MG Capsule PO ×2 (10:12→18:48)
[2019-09-29 10:15] VITALS: BP 109/63; PULSE 79; RESP 18; TEMP 36.8; O2SAT 96
--- NOTE | 2019-09-29 11:14 | PCM.PN.HOSP ---
Patient Problems: Active and Suspected Problems (Last Reviewed 06/27/19 @ 09:11 by Libra Gutierrez) Cellulitis and abscess of buttock (Acute) Abscess or cellulitis of perineum (Acute) Subjective: No issues overnight, doing well. Her last dose of Subutex was this morning. Cultures have been simply MRSA Vitals/I&O's: Vital Signs Temp Pulse Resp BP Pulse Ox 97.9 F 63 16 109/69 97 09/29/19 04:00 09/29/19 04:00 09/29/19 04:00 09/29/19 04:00 09/29/19 04:00 Oxygen Flow Rate (L/min) [2] 99 Oxygen Flow Rate (L/min) [1 ( 98 Initial Baseline)] Oxygen Delivery Method [3] Room Air Oxygen Delivery Method [2] Room Air Oxygen Delivery Method [1 ( Room Air Initial Baseline)] Oxygen Delivery Method Room Air Weight: 152 lb 8.958 oz Body Mass Index (BMI) 27.8 Intake and Output for Last 24 Hours 09/27/19 09/28/19 09/29/19 23:59 23:59 23:59 Intake Total 3780 / 4280 3015 / 3515 1075 / 1075 Output Total 400 / 400 Balance 3380 / 3880 3015 / 3515 1075 / 1075 General: Alert, Oriented x3, Cooperative, No apparent distress HEENT: Atraumatic, PERRLA, EOMI, Normocephalic Oral: Moist Mucosa Neck: Supple, No JVD Lungs: Clear to auscultation, Normal air movement, No rhonchi, No wheeze, No rales, Diminished Cardiovascular: Regular rate, Regular Rhythm, Normal S1, Normal S2, No murmurs Abdomen: Soft, Non Tender, Non-Distended, No Hepato-splenomegaly Extremities: No edema, Capillary Refill Less than 3 Seconds Skin: Ulcer/ Wound - Abscess status post incision and drainage Neurological: Neuro grossly intact, Sensory exam intact to light touch and pain Psych/Mental Status: Normal Affect, Appropriate Microbiology Past 72 Hours 09/26/19 19:40 Urine, Clean Catch Urine Culture - Final Culture exhibits no growth. 09/26/19 13:50 Blood Culture (Wb) - Neck Blood Culture - Preliminary No growth in 48 hours. 09/26/19 13:50 Blood Culture (Wb) - Anticubital Right Blood Culture - Preliminary No growth in 48 hours. 09/26/19 14:05 Wound Abcess - Groin Gram Stain - Final 09/26/19 14:05 Wound Abcess - Groin Wound Culture - Final Meth. resistant Staph. aureus Laboratory Results 09/28/19 11:42: POC Glucose 87 09/28/19 16:45: POC Glucose 88 09/28/19 23:12: Vancomycin Trough 48.6 H 09/29/19 06:18: POC Glucose 118 H 09/29/19 06:46: Vancomycin Trough 18.7 H Current Medications Acetaminophen (Tylenol) 650 mg PO Q6H PRN PRN PRN Reason: Pain Score 1-10/Temp > 100.7 F Last Admin: 09/28/19 02:01 Dose: 650 mg Documented by: Acyclovir (Zovirax) 400 mg PO TID [facility] Last Admin: 09/29/19 06:10 Dose: 400 mg Documented by: Al Hydroxide/Mg Hydroxide (Mylanta Ii) 30 ml PO Q6H PRN PRN PRN Reason: dyspesia Bisacodyl (Dulcolax) 10 mg RECTAL DAILY PRN PRN Reason: Constipation Buprenorphine HCl (Buprenorphine Hcl) 2 mg SL Q12H [facility]; Taper Stop: 09/29/19 18:14 Last Admin: 09/29/19 06:10 Dose: 2 mg Documented by: Clonidine (Catapres) 0.1 mg PO Q8H PRN PRN PRN Reason: RESTLESSNESS Last Admin: 09/28/19 15:36 Dose: 0.1 mg Documented by: Dicyclomine HCl (Bentyl) 20 mg PO Q6H PRN PRN PRN Reason: Abdominal Discomfort Docusate Sodium (Colace) 100 mg PO BID PRN PRN PRN Reason: Constipation Enoxaparin Sodium (Lovenox) 40 mg SC DAILY [facility] Last Admin: 09/29/19 10:04 Dose: 40 mg Documented by: Gabapentin (Neurontin) 300 mg PO Q8H PRN PRN PRN Reason: moderate to severe anxiety Last Admin: 09/29/19 10:12 Dose: 300 mg Documented by: Hydroxyzine Pamoate (Vistaril Pamoate Capsule) 50 mg PO Q6H PRN PRN PRN Reason: mild anxiety Last Admin: 09/28/19 11:48 Dose: 50 mg Documented by: Vancomycin IV Pharmacy to Dose (1 ea/ Sodium Chloride) 500 mls @ 250 mls/hr IV PRN PRN; Protocol Sodium Chloride () 250 mls @ 15 mls/hr IV .[id number] PRN PRN Reason: Saline Flush Sodium Chloride () 250 mls @ 15 mls/hr IV .[id number] PRN PRN Reason: Additional IVPB Infusion Vancomycin HCl 1,250 mg/ (Sodium Chloride) 275 mls @ 167 mls/hr IV Q8H [facility] Last Infusion: 09/29/19 09:22 Dose: Infused Documented by: Ketorolac Tromethamine (Toradol (Bkc)) 30 mg IV Q8H PRN PRN PRN Reason: Pain Score 4-1010 Stop: 10/01/19 19:01 Last Admin: 09/28/19 00:26 Dose: 30 mg Documented by: Loperamide HCl (Imodium) 2 mg PO Q4H PRN PRN PRN Reason: LOOSE STOOLS Methocarbamol (Methocarbamol) 1,500 mg PO Q6H PRN PRN PRN Reason: MUSCLE SPASM Last Admin: 09/28/19 02:01 Dose: 1,500 mg Documented by: Morphine Sulfate () 2 mg IV BID PRN PRN PRN Reason: While changing dressing Last Admin: 09/29/19 02:34 Dose: 2 mg Documented by: Nicotine (Nicoderm Cq (Pbkc)) 21 mg TRANSDERM. DAILY [facility] Last Admin: 09/29/19 10:04 Dose: 21 mg Documented by: Nutritional Formula (Lactose Free) (Ensure Enlive) 120 ml PO 4X/DAY [facility] Last Admin: 09/29/19 10:04 Dose: Not Given Documented by: Ondansetron HCl (Zofran Odt) 8 mg PO Q8H PRN PRN PRN Reason: NAUSEA Senna (Senokot) 2 tablet PO QHS PRN PRN Reason: Constipation Sodium Chloride () 10 - 40 ml IV UD PRN PRN Reason: SALINE FLUSH Last Admin: 09/29/19 10:12 Dose: 10 ml Documented by: Sodium Chloride (0.9% Nacl (Sterile) Posiflush) 10 - 40 ml IV UD PRN PRN Reason: Port access or dressing change Trazodone HCl (Desyrel) 100 mg PO QHS PRN PRN PRN Reason: INSOMNIA Medical Necessity - Tobacco Use Smoking Status: Current every day smoker Tobacco Use: Cigarettes Assessment/Plan All Active Problems (Last Reviewed 06/27/19 @ 09:11 by Libra Gutierrez) Cellulitis and abscess of buttock (Acute) Abscess or cellulitis of perineum (Acute) Hives (Resolved) UTI (urinary tract infection) (Resolved) Bone fracture (Resolved) Alcohol abuse (Acute) Heroin withdrawal (Acute) Depression affecting (Acute) Positive urine drug screen (Resolved) Tobacco abuse (Acute) complicated by subutex maintenance, antepartum (Acute) History of drug abuse (Resolved) Breech presentation of fetus (Resolved) related abdominal pain of lower quadrant, antepartum (Resolved) Vaginal discharge during (Resolved) 1. Left-sided perineal abscess extending from the labia to the buttock status post I&D -Cultures with MRSA that is sensitive to Bactrim or clindamycin, so either option is good for discharge p.o. -We will continue with Vanco while she is here -She is stable for discharge from medicine's perspective, all cultures have been negative so far except for the wound culture with MRSA leukocyte leukocytosis has resolved and vital signs are stable -Gonorrhea and Chlamydia were negative 2. Polysubstance abuse/chronic hepatitis C/anxiety/depression -She does use IV heroin and was started on a Subutex taper -She completed the taper this morning at 6 AM, and her plan is to live with her grandmother and follow-up with 180 of an outpatient -Continue with her home trazodone, and she needs to be clean from IV drug abuse before she can receive treatment for hepatitis C if able DVT: Lovenox Inpatient E&M: 25011 Subs Hosp L2
[2019-09-29 14:10] VITALS: BP 106/74; PULSE 83; RESP 16; TEMP 36.9; O2SAT 98
[2019-09-29] MEDS: cloNIDine HCl 0.1 MG Tablet PO (14:19)
[2019-09-29] MEDS: Methocarbamol 750 MG Tablet 1500 MG PO ×2 (14:19→22:12)
[2019-09-29 17:56] LABS: Bedside Glucose 175 mg/dL (70-110)
--- NOTE | 2019-09-29 19:01 | NURSING ---
Patient states she needs to have her phone at 0700 tomorrow d/t needing to call her fundraising officer. This RN states that while she is at the hospital under the RAMP program she is not allowed to have any of her belongings until dc. Patient reports that she needs to make a phone call to him or else she is in trouble. This RN states that we can make a phone call to him and let him know she is in the hospital. She requests that a phone call be made to Prashant Linares @ [phone] and we need to let him know that she is in the hospital with a MRSA infection and she cannot remember the number for her fundraising officer who is Reza Ramirez. This information and request was passed along to insulation cupola charger who will make phone call 5 AM.
[2019-09-29 21:59] VITALS: BP 111/66; PULSE 78; RESP 16; TEMP 36.4; O2SAT 99
[2019-09-29] MEDS: traZODone 100 MG Tablet PO (22:12)
[2019-09-29] MEDS: Ketorolac 30 MG/ML Syringe IV (22:12)
[2019-09-29 22:40] LABS: Bedside Glucose 98 mg/dL (70-110)
[2019-09-30 03:25] VITALS: BP 97/59; PULSE 71; RESP 16; TEMP 36.6; O2SAT 98
[2019-09-30] MEDS: Acyclovir 200 MG Capsule 400 MG PO (06:36)
[2019-09-30 06:45] LABS: Bedside Glucose 123 mg/dL (70-110)
[2019-09-30 06:46] LABS: Anion Gap 6 (5-15); BUN 19 mg/dL (7-18); BUN/Creat Ratio 29.2 RATIO (10-20); Chloride 104 mmol/L (98-107); Creatinine, Serum 0.65 mg/dL (0.55-1.02); EST Glomerular Filtration Rate 119 mL/min (>60); Est Glom Filt Rate - Afr Amer 144 mL/min (>60); Estimated Creatinine Clearance 106.46 ml/min; Glucose 137 mg/dL (74-106); Potassium 4.1 mmol/L (3.5-5.1); Sodium Level 138 mmol/L (136-145)
--- NOTE | 2019-09-30 07:25 | NURSING ---
this RN spoke with pt's grandmother, Meli on the phone who informed this RN that due to patient's diagnosis of MRSA in her wound, she is not willing to allow the patient move in with her. Pt's grandmother states she wanted us to know so that when home health care is set up they are not being set up to come to her home. Meli expresses that she is concerned that she is caring for pt's baby at home, who touches everything and put's her fingers in her mouth. this RN asked if Meli knew of anyone else or anywhere pt would have in mind of staying and she reports pt having an apartment that she may be locked out of. Verified Meli's phone number and that she is willing to be contacted for further questions and arrangements. Meli is agreeable.
--- NOTE | 2019-09-30 08:53 | NURSING ---
spoke with Prashant Linares and updated him that pt was admitted on 09/25 for an infection and the RAMP per pt request. Informed him that pt should be d/c today 09/29. instructed me to let pt know to touch base with him or Mr. Ramirez today 09/29 or tomorrow 09/30.
[2019-09-30 08:55] VITALS: BP 96/56; PULSE 82; RESP 16; TEMP 36.6; O2SAT 94
[2019-09-30] MEDS: Morphine 2 MG/ML Syringe IV (09:31)
--- NOTE | 2019-09-30 09:42 | CASEMGMT ---
MICHELE ARAGON in to discuss discharge plans with patient. Patient is unsure where she will be staying when she discharges from hospital. Patient states that she has court date today and will know more after about where she will be staying. MICHELE ARAGON explained that patient will need someone to learn wound care as HHC will not come everyday. Patient voiced understanding and states that grandmother should be able to help but she will not be staying with grandmother. MICHELE ARAGON instructed patient that she will need to learn dressing changes if HHC cannot be arranged. MICHELE CM will await call back from patient to assist with HHC arrangements if needed. MICHELE ARAGON will initiate referral to [facility].
--- NOTE | 2019-09-30 09:59 | PN_ITS ---
Patient Problems: Active and Suspected Problems (Last Reviewed 06/27/19 @ 09:11 by Libra Gutierrez) Cellulitis and abscess of buttock (Acute) Abscess or cellulitis of perineum (Acute) Subjective: Doing well, no issues overnight. Vitals/I&O's: Vital Signs Temp Pulse Resp BP Pulse Ox 97.8 F 82 16 96/56 L 94 09/30/19 08:55 09/30/19 08:55 09/30/19 08:55 09/30/19 08:55 09/30/19 08:55 Oxygen Flow Rate (L/min) [2] 99 Oxygen Flow Rate (L/min) [1 ( 98 Initial Baseline)] Oxygen Delivery Method [3] Room Air Oxygen Delivery Method [2] Room Air Oxygen Delivery Method [1 ( Room Air Initial Baseline)] Oxygen Delivery Method Room Air Weight: 152 lb 8.958 oz Body Mass Index (BMI) 27.8 Intake and Output for Last 24 Hours 09/28/19 09/29/19 09/30/19 23:59 23:59 23:59 Intake Total 3015 / 3515 2230 / 2680 1400 / 1400 Balance 3015 / 3515 2230 / 2680 1400 / 1400 General: Alert, Oriented x3, Cooperative, No apparent distress HEENT: Atraumatic, PERRLA, EOMI, Normocephalic Oral: Moist Mucosa Neck: Supple, No JVD Lungs: Clear to auscultation, Normal air movement, No rhonchi, No wheeze, No rales, Diminished Cardiovascular: Regular rate, Regular Rhythm, Normal S1, Normal S2, No murmurs Abdomen: Soft, Non Tender, Non-Distended, No Hepato-splenomegaly Extremities: No edema, Capillary Refill Less than 3 Seconds Skin: Ulcer/ Wound - Abscess status post incision and drainage Neurological: Neuro grossly intact, Sensory exam intact to light touch and pain Psych/Mental Status: Normal Affect, Appropriate Microbiology Past 72 Hours 09/26/19 19:40 Urine, Clean Catch Urine Culture - Final Culture exhibits no growth. 09/26/19 13:50 Blood Culture (Wb) - Neck Blood Culture - Preliminary No growth in 48 hours. 09/26/19 13:50 Blood Culture (Wb) - Anticubital Right Blood Culture - Preliminary No growth in 48 hours. 09/26/19 14:05 Wound Abcess - Groin Gram Stain - Final 09/26/19 14:05 Wound Abcess - Groin Wound Culture - Final Meth. resistant Staph. aureus Laboratory Results 09/29/19 17:52: POC Glucose 175 H 09/29/19 22:32: POC Glucose 98 09/30/19 05:36: Sodium 138, Potassium 4.1, Chloride 104, Carbon Dioxide 28.0, Anion Gap 6, BUN 19 H, Creatinine 0.65, Estim Creat Clear Calc 106.46, Est GFR (MDRD) Af Amer 144, Est GFR (MDRD) Non-Af 119, BUN/Creatinine Ratio 29.2 H, Glucose 137 H, Calcium 9.0 09/30/19 06:39: POC Glucose 123 H Current Medications Acetaminophen (Tylenol) 650 mg PO Q6H PRN PRN PRN Reason: Pain Score 1-10/Temp > 100.7 F Last Admin: 09/28/19 02:01 Dose: 650 mg Documented by: Acyclovir (Zovirax) 400 mg PO TID [facility] Last Admin: 09/30/19 06:36 Dose: 400 mg Documented by: Al Hydroxide/Mg Hydroxide (Mylanta Ii) 30 ml PO Q6H PRN PRN PRN Reason: dyspesia Bisacodyl (Dulcolax) 10 mg RECTAL DAILY PRN PRN Reason: Constipation Clonidine (Catapres) 0.1 mg PO Q8H PRN PRN PRN Reason: RESTLESSNESS Last Admin: 09/29/19 14:19 Dose: 0.1 mg Documented by: Dicyclomine HCl (Bentyl) 20 mg PO Q6H PRN PRN PRN Reason: Abdominal Discomfort Docusate Sodium (Colace) 100 mg PO BID PRN PRN PRN Reason: Constipation Enoxaparin Sodium (Lovenox) 40 mg SC DAILY [facility] Last Admin: 09/30/19 09:33 Dose: Not Given Documented by: Gabapentin (Neurontin) 300 mg PO Q8H PRN PRN PRN Reason: moderate to severe anxiety Last Admin: 09/29/19 18:48 Dose: 300 mg Documented by: Hydroxyzine Pamoate (Vistaril Pamoate Capsule) 50 mg PO Q6H PRN PRN PRN Reason: mild anxiety Last Admin: 09/28/19 11:48 Dose: 50 mg Documented by: Vancomycin IV Pharmacy to Dose (1 ea/ Sodium Chloride) 500 mls @ 250 mls/hr IV PRN PRN; Protocol Sodium Chloride () 250 mls @ 15 mls/hr IV .[id number] PRN PRN Reason: Saline Flush Sodium Chloride () 250 mls @ 15 mls/hr IV .[id number] PRN PRN Reason: Additional IVPB Infusion Vancomycin HCl 1,250 mg/ (Sodium Chloride) 275 mls @ 167 mls/hr IV Q8H [facility] Last Infusion: 09/30/19 09:01 Dose: Infused Documented by: Ketorolac Tromethamine (Toradol (Bkc)) 30 mg IV Q8H PRN PRN PRN Reason: Pain Score 4-10/10 Stop: 10/01/19 19:01 Last Admin: 09/29/19 22:12 Dose: 30 mg Documented by: Loperamide HCl (Imodium) 2 mg PO Q4H PRN PRN PRN Reason: LOOSE STOOLS Methocarbamol (Methocarbamol) 1,500 mg PO Q6H PRN PRN PRN Reason: MUSCLE SPASM Last Admin: 09/29/19 22:12 Dose: 1,500 mg Documented by: Morphine Sulfate () 2 mg IV BID PRN PRN PRN Reason: While changing dressing Last Admin: 09/30/19 09:31 Dose: 2 mg Documented by: Nicotine (Nicoderm Cq (Pbkc)) 21 mg TRANSDERM. DAILY [facility] Last Admin: 09/30/19 09:33 Dose: Not Given Documented by: Nutritional Formula (Lactose Free) (Ensure Enlive) 120 ml PO 4X/DAY [facility] Last Admin: 09/30/19 09:33 Dose: Not Given Documented by: Ondansetron HCl (Zofran Odt) 8 mg PO Q8H PRN PRN PRN Reason: NAUSEA Senna (Senokot) 2 tablet PO QHS PRN PRN Reason: Constipation Sodium Chloride () 10 - 40 ml IV UD PRN PRN Reason: SALINE FLUSH Last Admin: 09/29/19 22:12 Dose: 20 ml Documented by: Sodium Chloride (0.9% Nacl (Sterile) Posiflush) 10 - 40 ml IV UD PRN PRN Reason: Port access or dressing change Trazodone HCl (Desyrel) 100 mg PO QHS PRN PRN PRN Reason: INSOMNIA Last Admin: 09/29/19 22:12 Dose: 100 mg Documented by: STROKE Vital Signs/Narrative: Vital Signs Temp Pulse Resp BP Pulse Ox 09/30/19 08:55 97.8 F 82 16 96/56 L 94 Medical Necessity - Tobacco Use Smoking Status: Current every day smoker Tobacco Use: Cigarettes Assessment/Plan All Active Problems (Last Reviewed 06/27/19 @ 09:11 by Libra Gutierrez) Cellulitis and abscess of buttock (Acute) Abscess or cellulitis of perineum (Acute) Hives (Resolved) UTI (urinary tract infection) (Resolved) Bone fracture (Resolved) Alcohol abuse (Acute) Heroin withdrawal (Acute) Depression affecting (Acute) Positive urine drug screen (Resolved) Tobacco abuse (Acute) complicated by subutex maintenance, antepartum (Acute) History of drug abuse (Resolved) Breech presentation of fetus (Resolved) related abdominal pain of lower quadrant, antepartum (Resolved) Vaginal discharge during (Resolved) 1. Left-sided perineal abscess extending from the labia to the buttock status post I&D -Cultures with MRSA that is sensitive to Bactrim or clindamycin, so either option is good for discharge p.o. for 7 to 10 days total course -We will continue with Vanco while she is here -She is stable for discharge from medicine's perspective, all cultures have been negative so far except for the wound culture with MRSA leukocyte leukocytosis has resolved and vital signs are stable -Gonorrhea and Chlamydia were negative 2. Polysubstance abuse/chronic hepatitis C/anxiety/depression -She does use IV heroin and was started on a Subutex taper -She completed the taper yesterday morning at 6 AM, follow-up with 180 of an outpatient -Continue with her home trazodone, and she needs to be clean from IV drug abuse before she can receive treatment for hepatitis C if able DVT: Lovenox Inpatient E&M: 69436 Subs Hosp L2
--- NOTE | 2019-09-30 10:09 | PN.OBGYN_ITS ---
Patient Problems: Active and Suspected Problems (Last Reviewed 06/27/19 @ 09:11 by Libra Gutierrez) Cellulitis and abscess of buttock (Acute) Abscess or cellulitis of perineum (Acute) Subjective: Doing well. Denies fevers, chills, pain, nausea, vomiting. She requests to go home today. - Physical Exam Vitals/I&O's: Vital Signs Temp Pulse Resp BP Pulse Ox 97.8 F 82 16 96/56 L 94 09/30/19 08:55 09/30/19 08:55 09/30/19 08:55 09/30/19 08:55 09/30/19 08:55 Oxygen Flow Rate (L/min) [2] 99 Oxygen Flow Rate (L/min) [1 ( 98 Initial Baseline)] Oxygen Delivery Method [3] Room Air Oxygen Delivery Method [2] Room Air Oxygen Delivery Method [1 ( Room Air Initial Baseline)] Oxygen Delivery Method Room Air Weight: 152 lb 8.958 oz Body Mass Index (BMI) 27.8 Intake and Output for Last 24 Hours 09/28/19 09/29/19 09/30/19 23:59 23:59 23:59 Intake Total 3015 / 3515 2230 / 2680 1400 / 1400 Balance 3015 / 3515 2230 / 2680 1400 / 1400 General: Alert, No apparent distress HEENT: Atraumatic Extremities: No edema Skin: No rashes Neurological: Neuro grossly intact Psych/Mental Status: Normal Affect, Appropriate Microbiology Past 72 Hours 09/26/19 19:40 Urine, Clean Catch Urine Culture - Final Culture exhibits no growth. 09/26/19 13:50 Blood Culture (Wb) - Neck Blood Culture - Preliminary No growth in 48 hours. 09/26/19 13:50 Blood Culture (Wb) - Anticubital Right Blood Culture - Preliminary No growth in 48 hours. 09/26/19 14:05 Wound Abcess - Groin Gram Stain - Final 09/26/19 14:05 Wound Abcess - Groin Wound Culture - Final Meth. resistant Staph. aureus Laboratory Results 09/29/19 17:52: POC Glucose 175 H 09/29/19 22:32: POC Glucose 98 09/30/19 05:36: Sodium 138, Potassium 4.1, Chloride 104, Carbon Dioxide 28.0, Anion Gap 6, BUN 19 H, Creatinine 0.65, Estim Creat Clear Calc 106.46, Est GFR (MDRD) Af Amer 144, Est GFR (MDRD) Non-Af 119, BUN/Creatinine Ratio 29.2 H, Glucose 137 H, Calcium 9.0 09/30/19 06:39: POC Glucose 123 H Current Medications Acetaminophen (Tylenol) 650 mg PO Q6H PRN PRN PRN Reason: Pain Score 1-10/Temp > 100.7 F Last Admin: 09/28/19 02:01 Dose: 650 mg Documented by: Acyclovir (Zovirax) 400 mg PO TID [facility] Last Admin: 09/30/19 06:36 Dose: 400 mg Documented by: Al Hydroxide/Mg Hydroxide (Mylanta Ii) 30 ml PO Q6H PRN PRN PRN Reason: dyspesia Bisacodyl (Dulcolax) 10 mg RECTAL DAILY PRN PRN Reason: Constipation Clonidine (Catapres) 0.1 mg PO Q8H PRN PRN PRN Reason: RESTLESSNESS Last Admin: 09/29/19 14:19 Dose: 0.1 mg Documented by: Dicyclomine HCl (Bentyl) 20 mg PO Q6H PRN PRN PRN Reason: Abdominal Discomfort Docusate Sodium (Colace) 100 mg PO BID PRN PRN PRN Reason: Constipation Enoxaparin Sodium (Lovenox) 40 mg SC DAILY [facility] Last Admin: 09/30/19 09:33 Dose: Not Given Documented by: Gabapentin (Neurontin) 300 mg PO Q8H PRN PRN PRN Reason: moderate to severe anxiety Last Admin: 09/29/19 18:48 Dose: 300 mg Documented by: Hydroxyzine Pamoate (Vistaril Pamoate Capsule) 50 mg PO Q6H PRN PRN PRN Reason: mild anxiety Last Admin: 09/28/19 11:48 Dose: 50 mg Documented by: Vancomycin IV Pharmacy to Dose (1 ea/ Sodium Chloride) 500 mls @ 250 mls/hr IV PRN PRN; Protocol Sodium Chloride () 250 mls @ 15 mls/hr IV .[id number] PRN PRN Reason: Saline Flush Sodium Chloride () 250 mls @ 15 mls/hr IV .[id number] PRN PRN Reason: Additional IVPB Infusion Vancomycin HCl 1,250 mg/ (Sodium Chloride) 275 mls @ 167 mls/hr IV Q8H J[facility] Last Infusion: 09/30/19 09:01 Dose: Infused Documented by: Ketorolac Tromethamine (Toradol (Bkc)) 30 mg IV Q8H PRN PRN PRN Reason: Pain Score 4-10/10 Stop: 10/01/19 19:01 Last Admin: 09/29/19 22:12 Dose: 30 mg Documented by: Loperamide HCl (Imodium) 2 mg PO Q4H PRN PRN PRN Reason: LOOSE STOOLS Methocarbamol (Methocarbamol) 1,500 mg PO Q6H PRN PRN PRN Reason: MUSCLE SPASM Last Admin: 09/29/19 22:12 Dose: 1,500 mg Documented by: Morphine Sulfate () 2 mg IV BID PRN PRN PRN Reason: While changing dressing Last Admin: 09/30/19 09:31 Dose: 2 mg Documented by: Nicotine (Nicoderm Cq (Pbkc)) 21 mg TRANSDERM. DAILY [facility] Last Admin: 09/30/19 09:33 Dose: Not Given Documented by: Nutritional Formula (Lactose Free) (Ensure Enlive) 120 ml PO 4X/DAY [facility] Last Admin: 09/30/19 09:33 Dose: Not Given Documented by: Ondansetron HCl (Zofran Odt) 8 mg PO Q8H PRN PRN PRN Reason: NAUSEA Senna (Senokot) 2 tablet PO QHS PRN PRN Reason: Constipation Sodium Chloride () 10 - 40 ml IV UD PRN PRN Reason: SALINE FLUSH Last Admin: 09/29/19 22:12 Dose: 20 ml Documented by: Sodium Chloride (0.9% Nacl (Sterile) Posiflush) 10 - 40 ml IV UD PRN PRN Reason: Port access or dressing change Trazodone HCl (Desyrel) 100 mg PO QHS PRN PRN PRN Reason: INSOMNIA Last Admin: 09/29/19 22:12 Dose: 100 mg Documented by: Medical Necessity - Tobacco Use Smoking Status: Current every day smoker Tobacco Use: Cigarettes Assessment/Plan All Active Problems (Last Reviewed 06/27/19 @ 09:11 by Libra Gutierrez) Cellulitis and abscess of buttock (Acute) Abscess or cellulitis of perineum (Acute) Hives (Resolved) UTI (urinary tract infection) (Resolved) Bone fracture (Resolved) Alcohol abuse (Acute) Heroin withdrawal (Acute) Depression affecting (Acute) Positive urine drug screen (Resolved) Tobacco abuse (Acute) complicated by subutex maintenance, antepartum (Acute) History of drug abuse (Resolved) Breech presentation of fetus (Resolved) related abdominal pain of lower quadrant, antepartum (Resolved) Vaginal discharge during (Resolved) Patient remains afebrile and abscess has improved. Will discharge home on a course of Bactrim. Instructed patient to follow-up in the office for Nexplanon placement, as well as follow-up of the abscess. Social work saw pt before discharge.
--- NOTE | 2019-09-30 10:12 | PCM.DC ---
- Discharge Diagnoses Current Active Problems: Current Active and Chronic Problems (Last Reviewed 06/27/19 @ 09:11 by Libra Gutierrez) Cellulitis and abscess of buttock (Acute) Abscess or cellulitis of perineum (Acute) You will use the following diet at home:: No restrictions Your food should be the consistency of: Regular Discharge Activity: May not drive while taking narcotic pain medications., May Shower, May Take a Tub Bath May resume sexual activity in: 6-8 weeks Ice area for (Minutes): 15 Weight Bearing Status: Weight bearing as tolerated Lifting Restrictions: None Call your doctor if your incision/area has: Sudden Increased Bleeding, Increased Pain/ Swelling, Increased Redness, Foul Smelling Discharge Call your doctor if you observe: Fever of 101 or Higher, Inability to urinate, Inability to have a bowel movement, Using more than one pad per hour Cleanse incision/area with: Soap & Water Allergies/Adverse Reactions: Allergies diphenhydramine HCl [From Benadryl] Allergy (Verified 09/26/19 12:42) Hives Penicillins Allergy (Verified 09/26/19 12:42) Hives Medications to take at Discharge buprenorphine 8 mg-naloxone 2 mg sublingual film 1 tab PO DAILY 06/27/19 Acyclovir 400 mg PO TID 09/26/19 Smz/Tmp Ds [Bactrim Ds] 1 tab PO BID 10 Days #20 tab 09/30/19 The following prescriptions were given: Smz/Tmp Ds [Bactrim Ds] 1 tab PO BID 10 Days #20 tab Transmission Status: Pending to [facility] [place] - [id number] Primary Care Physician: David Nelson MD [Primary Care Provider] - Test Results: Test results from this visit will be discussed in further detail at your follow-up appointment, if applicable. Please Follow Up With: Lorrie Vega DO When: 1-2 weeks for Nexplanon placement and follow up
--- NOTE | 2019-09-30 10:14 | NURSING ---
grandmother phoned in, update given.
--- NOTE | 2019-09-30 10:14 | PCM.DC.SUM ---
Discharge Date and Diagnosis Date of Admission: 09/26/19 Date of Discharge: 09/30/19 - Primary Discharge Diagnosis Acute Problems: Active Problems (Last Reviewed 06/27/19 @ 09:11 by Libra Gutierrez) Cellulitis and abscess of buttock (Acute) Abscess or cellulitis of perineum (Acute) - Secondary Discharge Diagnosis Chronic Problems: Chronic Problems (Last Reviewed 06/27/19 @ 09:11 by Libra Gutierrez) History of abscess of skin and subcutaneous tissue (Chronic) Substance abuse (Chronic) Anxiety (Chronic) H/O emotional problems (Chronic) Anemia (Chronic) Herpes (Chronic) Hospital Course and Treatment Consultations 09/28/19 08:47 Consult: Onc/Wound/insight leader Routine Comment: Operations: None Procedures: - - I&D Summary of Care Provided: The patient is a 23 year old F [] who reported a herpes outbreak that she was picking at, and subsequently developed a perineal abscess. The perineal abscess was drained by incision and drainage in the emergency department. She was admitted for IV antibiotics. Her white count normalized and she remained afebrile during her stay. A culture grew MRSA that was sensitive to Bactrim. Social work was consulted for home health care and assistance with packing changes. She was discharged home in good condition with a oral course of Bactrim. She was instructed to follow-up in the office for follow-up, as well as Nexplanon placement. - Physical Exam Vitals/I&O's: Vital Signs Temp Pulse Resp BP Pulse Ox 97.8 F 82 16 96/56 L 94 09/30/19 08:55 09/30/19 08:55 09/30/19 08:55 09/30/19 08:55 09/30/19 08:55 Oxygen Flow Rate (L/min) [2] 99 Oxygen Flow Rate (L/min) [1 ( 98 Initial Baseline)] Oxygen Delivery Method [3] Room Air Oxygen Delivery Method [2] Room Air Oxygen Delivery Method [1 ( Room Air Initial Baseline)] Oxygen Delivery Method Room Air Weight: 152 lb 8.958 oz Body Mass Index (BMI) 27.8 Intake and Output for Last 24 Hours 09/28/19 09/29/19 09/30/19 23:59 23:59 23:59 Intake Total 3015 / 3515 2230 / 2680 1400 / 1400 Balance 3015 / 3515 2230 / 2680 1400 / 1400 Microbiology Past 72 Hours 09/26/19 19:40 Urine, Clean Catch Urine Culture - Final Culture exhibits no growth. 09/26/19 13:50 Blood Culture (Wb) - Neck Blood Culture - Preliminary No growth in 48 hours. 09/26/19 13:50 Blood Culture (Wb) - Anticubital Right Blood Culture - Preliminary No growth in 48 hours. 09/26/19 14:05 Wound Abcess - Groin Gram Stain - Final 09/26/19 14:05 Wound Abcess - Groin Wound Culture - Final Meth. resistant Staph. aureus Laboratory Results 09/29/19 17:52: POC Glucose 175 H 09/29/19 22:32: POC Glucose 98 09/30/19 05:36: Sodium 138, Potassium 4.1, Chloride 104, Carbon Dioxide 28.0, Anion Gap 6, BUN 19 H, Creatinine 0.65, Estim Creat Clear Calc 106.46, Est GFR (MDRD) Af Amer 144, Est GFR (MDRD) Non-Af 119, BUN/Creatinine Ratio 29.2 H, Glucose 137 H, Calcium 9.0 09/30/19 06:39: POC Glucose 123 H Current Medications Acetaminophen (Tylenol) 650 mg PO Q6H PRN PRN PRN Reason: Pain Score 1-10/Temp > 100.7 F Last Admin: 09/28/19 02:01 Dose: 650 mg Documented by: Acyclovir (Zovirax) 400 mg PO TID [facility] Last Admin: 09/30/19 06:36 Dose: 400 mg Documented by: Al Hydroxide/Mg Hydroxide (Mylanta Ii) 30 ml PO Q6H PRN PRN PRN Reason: dyspesia Bisacodyl (Dulcolax) 10 mg RECTAL DAILY PRN PRN Reason: Constipation Clonidine (Catapres) 0.1 mg PO Q8H PRN PRN PRN Reason: RESTLESSNESS Last Admin: 09/29/19 14:19 Dose: 0.1 mg Documented by: Dicyclomine HCl (Bentyl) 20 mg PO Q6H PRN PRN PRN Reason: Abdominal Discomfort Docusate Sodium (Colace) 100 mg PO BID PRN PRN PRN Reason: Constipation Enoxaparin Sodium (Lovenox) 40 mg SC DAILY [facility] Last Admin: 09/30/19 09:33 Dose: Not Given Documented by: Gabapentin (Neurontin) 300 mg PO Q8H PRN PRN PRN Reason: moderate to severe anxiety Last Admin: 09/29/19 18:48 Dose: 300 mg Documented by: Hydroxyzine Pamoate (Vistaril Pamoate Capsule) 50 mg PO Q6H PRN PRN PRN Reason: mild anxiety Last Admin: 09/28/19 11:48 Dose: 50 mg Documented by: Vancomycin IV Pharmacy to Dose (1 ea/ Sodium Chloride) 500 mls @ 250 mls/hr IV PRN PRN; Protocol Sodium Chloride () 250 mls @ 15 mls/hr IV .[id number] PRN PRN Reason: Saline Flush Sodium Chloride () 250 mls @ 15 mls/hr IV .[id number] PRN PRN Reason: Additional IVPB Infusion Vancomycin HCl 1,250 mg/ (Sodium Chloride) 275 mls @ 167 mls/hr IV Q8H [facility] Last Infusion: 09/30/19 09:01 Dose: Infused Documented by: Ketorolac Tromethamine (Toradol (Bkc)) 30 mg IV Q8H PRN PRN PRN Reason: Pain Score 4-10/10 Stop: 10/01/19 19:01 Last Admin: 09/29/19 22:12 Dose: 30 mg Documented by: Loperamide HCl (Imodium) 2 mg PO Q4H PRN PRN PRN Reason: LOOSE STOOLS Methocarbamol (Methocarbamol) 1,500 mg PO Q6H PRN PRN PRN Reason: MUSCLE SPASM Last Admin: 09/29/19 22:12 Dose: 1,500 mg Documented by: Morphine Sulfate () 2 mg IV BID PRN PRN PRN Reason: While changing dressing Last Admin: 09/30/19 09:31 Dose: 2 mg Documented by: Nicotine (Nicoderm Cq (Pbkc)) 21 mg TRANSDERM. DAILY [facility] Last Admin: 09/30/19 09:33 Dose: Not Given Documented by: Nutritional Formula (Lactose Free) (Ensure Enlive) 120 ml PO 4X/DAY [facility] Last Admin: 09/30/19 09:33 Dose: Not Given Documented by: Ondansetron HCl (Zofran Odt) 8 mg PO Q8H PRN PRN PRN Reason: NAUSEA Senna (Senokot) 2 tablet PO QHS PRN PRN Reason: Constipation Sodium Chloride () 10 - 40 ml IV UD PRN PRN Reason: SALINE FLUSH Last Admin: 09/29/19 22:12 Dose: 20 ml Documented by: Sodium Chloride (0.9% Nacl (Sterile) Posiflush) 10 - 40 ml IV UD PRN PRN Reason: Port access or dressing change Trazodone HCl (Desyrel) 100 mg PO QHS PRN PRN PRN Reason: INSOMNIA Last Admin: 09/29/19 22:12 Dose: 100 mg Documented by: Discharge Activity: May not drive while taking narcotic pain medications., May Shower, May Take a Tub Bath May resume sexual activity in: 6-8 weeks Ice area for (Minutes): 15 Weight Bearing Status: Weight bearing as tolerated Call your doctor if your incision/area has: Sudden Increased Bleeding, Increased Pain/ Swelling, Increased Redness, Foul Smelling Discharge Call your doctor if you observe: Fever of 101 or Higher, Inability to urinate, Inability to have a bowel movement, Using more than one pad per hour Cleanse incision/area with: Soap & Water Home Medications: Medications to take at Discharge buprenorphine 8 mg-naloxone 2 mg sublingual film 1 tab PO DAILY 06/27/19 Acyclovir 400 mg PO TID 09/26/19 Smz/Tmp Ds [Bactrim Ds] 1 tab PO BID 10 Days #20 tab 09/30/19 Following Prescrptions Were Given to Patient: Smz/Tmp Ds [Bactrim Ds] 1 tab PO BID 10 Days #20 tab Transmission Status: Received by [facility] [id number] Primary Care Physician: David Nelson MD [Primary Care Provider] - Please Follow Up With: Lorrie Vega DO When: 1-2 weeks for Nexplanon placement and follow up Medical Necessity - Tobacco Use Smoking Status: Current every day smoker Tobacco Use: Cigarettes Meaningful Use Info Meaningful Use Diagnoses (Choose all that apply): None applicable
--- NOTE | 2019-09-30 10:53 | PHA.DC.MC ---
Pharmacy Service has performed discharge medication reconciliation and counseling for this patient. The patient's discharge medication list was reviewed for discrepancies and discrepancies were resolved. The patient was counseled on the following discharge medications and changes in medications for homegoing were reviewed. 1. BACTRIM DS: 1 TAB PO BID X 10 DAYS The Reason for Use, instructions for use, and potential side effects were reviewed for all new medications. The patient's questions regarding all of their medications were answered. The patient was able to verbally demonstrate an understanding of their discharge medications. Home Medications buprenorphine 8 mg-naloxone 2 mg sublingual film 1 tab PO DAILY 06/27/19 Acyclovir 400 mg PO TID 09/26/19 Smz/Tmp Ds [Bactrim Ds] 1 tab PO BID 10 Days #20 tab 09/30/19
[2019-09-30] MEDS: 0.9% Saline Lock 10 ML Syringe IV (11:22)
--- NOTE | 2019-09-30 15:15 | CASEMGMT ---
MICHELE ARAGON received call back from [facility] and they are not able to accept the patient. MICHELE ARAGON called patient and updated regarding referral. Patient provided address that she is currently staying at [address] [place] [address]. MICHELE ARAGON updated patient that CM will send additional referrals to in-network companies. Additional referrals sent to [facility], [facility], and [facility]. Patient state she has a neighbor that is a nurse that could assist. MICHELE ARAGON encouraged patient to reach out to neighbor incase HHC cannot be established. Patient voiced understanding. CM will continue to setup HHC and update that patient.
--- NOTE | 2019-10-01 15:14 | CASEMGMT ---
MICHELE ARAGON received callbacks from [facility], [facility], and [facility] and they are all not able to accept the patient. Referrals called to [facility], [facility], and [facility] and they do not have staffing. MICHELE ARAGON called patient to updated regarding not being accepted by several [facility] agencies. Patient states that she is upset and cussing at this RN CM. Patient states she has been waiting for someone to come teach her how to do the dressing change. MICHELE ARAGON explained to patient that nursing attempted to teach her while at [facility] and she did not want to participate at that time. MICHELE ARAGON inquired about neighbor who is a nurse if she was able to help patient. Patient states that she is a heroin addict and did not want anything to do with her. MICHELE ARAGON instructed patient to call Dr. Trejo's office to get further instructions. MICHELE ARAGON called nurse at Dr. Trejo's office and updated that 7 [facility] agencies denied patient and asked if nursing could call patient and update with further instructions.
== END 2019-09-30 11:43 | disposition home or self-care (01) | DRG 383 ==
LOC: ED 14:17 → MS3 15:23
PROVIDERS: Internal Medicine; Admitting Provider Obstetrics & Gynecology; Emergency Provider Emergency Medicine; PCP Internal Medicine; Visit Provider Family Medicine
DX: L02.31 Cutaneous abscess of buttock (principal); L03.317 Cellulitis of buttock; B95.62 Methicillin resistant Staphylococcus aureus infection as the cause of diseases classified elsewhere; N76.4 Abscess of vulva; L02.215 Cutaneous abscess of perineum; L03.315 Cellulitis of perineum; A60.00 Herpesviral infection of urogenital system, unspecified; F11.23 Opioid dependence with withdrawal; F10.10 Alcohol abuse, uncomplicated; B18.2 Chronic viral hepatitis C; F31.9 Bipolar disorder, unspecified; F41.9 Anxiety disorder, unspecified; F17.210 Nicotine dependence, cigarettes, uncomplicated; E66.9 Obesity, unspecified; Z68.27 Body mass index [BMI] 27.0-27.9, adult; Z88.0 Allergy status to penicillin; Z86.14 Personal history of Methicillin resistant Staphylococcus aureus infection
CPT/HCPCS: 36415; 36569; 46050; 80048; 80053; 80202; 80307; 80320; 81001; 82962; 82977; 83605; 84703; 85025; 85610; 87040; 87070; 87077; 87086; 87186; 87205; 87491; 87591; 90715; 97802; 99285; 99406; J2185; J7030; J7040; J7050; A4216; G0480; J0696; J2405

== ENCOUNTER → 2021-01-31 14:13 | Outpatient (CLI) | payer MEDICAID, SELFPAY ==
[2021-01-31 16:18] LABS: hCG Titer Quant., Serum 9990 mIU/mL (1-3)
== END ==
PROVIDERS: PCP Internal Medicine; Referring Provider Obstetrics & Gynecology; Visit Provider Obstetrics & Gynecology
DX: N91.2 Amenorrhea, unspecified (principal)
CPT/HCPCS: 36415; 84702

== ENCOUNTER → 2021-02-04 11:51 | Outpatient (CLI) | payer MEDICAID, SELFPAY ==
--- NOTE | 2021-02-04 11:58 | US_ITS ---
EXAM: US , TRANSVAGINAL : 1995 CLINICAL INDICATION: dating TECHNIQUE: Real-time transvaginal obstetrical ultrasound of the maternal pelvis and a first trimester with image documentation. Transvaginal imaging was used for better evaluation of the fetus and adnexa. This report was created using [employer] report generation technology. COMPARISON: None. FINDINGS: GESTATION: There is an intrauterine gestation that has a crown-rump length of 3.4 mm age 6 weeks 1 day. Gestational sac measures 1.7 cm age 6 weeks 4 days. heart rate is 120 bpm. PLACENTA/AMNIOTIC FLUID: There is an 8 x 3 x 8 mm anechoic structure adjacent to the gestational sac which may represent a small subchorionic hemorrhage. UTERUS/CERVIX: The uterus measures 9.8 x 4.7 x 6.5 cm. No myometrial mass. OVARIES: The right ovary measures 3.8 x 2.6 x 2.9 cm. There is a 1.5 x 1.6 x 1.8 cm anechoic structure compatible with a cyst. The left ovary measures 2.5 x 2.6 x 1.5 cm. No mass. FREE FLUID: No free fluid. US/Transvaginal w/Preg US IMPRESSION: 1. Intrauterine gestation with an average ultrasound age of 6 weeks 1 day and ultrasound estimated due date of 09/29/2021. heart rate is 120 bpm. There is a small hypoechoic area adjacent to the gestational sac which may represent a subchorionic hemorrhage. 2. Right ovarian cyst. at 1052 Reported and signed by: Evelio Washington MD Electronically Signed: Evelio Washington MD at 10:51 EDT Tel , Service support ,
== END ==
PROVIDERS: PCP Internal Medicine; Referring Provider Obstetrics & Gynecology; Visit Provider Obstetrics & Gynecology
DX: Z36.87 Encounter for antenatal screening for uncertain dates (principal); O34.81 Maternal care for other abnormalities of pelvic organs, first trimester; N83.201 Unspecified ovarian cyst, right side; Z3A.01 Less than 8 weeks gestation of pregnancy
CPT/HCPCS: 76817

== ENCOUNTER 2021-02-20 21:07 | Emergency (ER) | payer MEDICAID, SELFPAY ==
[2021-02-20 21:07] VITALS: BP 145/92; PULSE 118; RESP 19; TEMP 36.2; O2SAT 99; BMI 32.9
--- NOTE | 2021-02-20 21:56 | ED.RN ---
PT BRISKLY AMBULATED OUT OF DEPARTMENT WITH FRIEND, ASKED HER IF SHE HAD SEEN THE DR YET AND SHE STATED YES AND I AM GOING TO A DIFFERENT ONE.
--- NOTE | 2021-02-20 22:10 | ED.RN ---
AWARE THAT PT HAS LEFT EMERGENCY ROOM. I WAS NOT PRESENT WHEN SHE LEFT.
--- NOTE | 2021-02-20 22:11 | ED.VIS.FEGU ---
HPI HPI - Female History of Present Illness Chief Complaint: Vag Bld, Preg Informant: patient Pain Pain: Positive for Pelvic Pain Onset: Today Context: Gradual Onset Timing: Intermittent Quality: Positive for Cramping Location: LLQ and Suprapubic Worsened by: - (Nothing) Relieved by: - (Nothing) Bleeding Issue: Positive for Vaginal bleeding; Negative for Passing clots and Passing tissue Onset: Today Current Severity: Spotting and Mild Associated Symptoms Associated Symptoms: Negative for Dysuria, Frequency and Urgency Last known menstrual period: 12/20/2020 Test: Positive Narrative Narrative: Patient presents with vaginal bleeding and lower abdominal cramping that began today. Patient states her bleeding is some mild spotting. Patient states it is less than a normal menstrual period. Patient states her cramping is over her lower abdomen but worse on the left. Patient states nothing makes it better nothing makes it worse. Patient states it is intermittent. Patient states that she had some implantation bleeding last week. Patient states she is concerned this could be from a miscarriage. PFSH PFS Medical History Alcohol abuse Anemia Bone fracture Depression affecting H/O emotional problems Hepatitis C test positive Herpes History of drug abuse Hives Positive urine drug screen complicated by subutex maintenance, antepartum Tobacco abuse UTI (urinary tract infection) Home Medications clonidine HCl 0.3 mg tablet 0.4 mg PO QHS tab 02/01/21 [History Last Taken Unknown] gabapentin 600 mg tablet 600 mg PO DAILY 02/01/21 [History Last Taken Unknown] multivitamin no.47-iron fum 27 mg-folate no.1 1 mg-dha 300 mg capsule 1 cap PO DAILY 02/01/21 [History Last Taken Unknown] promethazine 12.5 mg tablet 12.5 mg PO Q6H PRN #60 tab 02/07/21 [Rx Last Taken Unknown] Allergy/AdvReac Type Severity Reaction Status Date / Time diphenhydramine HCl Allergy Hives Verified 02/20/21 21:09 [From Benadryl] Penicillins Allergy Hives Verified 02/20/21 21:09 Family History Other Alcoholism Anxiety Arthritis Cancer Cervical cancer Depression Diabetes Mental disorder Ovarian cancer Psychiatric care Seizures Thyroid disorder Surgical History History of Social History household members: family housing: house number of children: 2 Smoking Status: Current every day smoker tobacco type: cigarettes alcohol intake: former substance use type: former substance user Date of last use: 05/2020 what type of physical activity do you participate in: none do you feel safe at home: Yes ROS ROS ED Constitutional Constitutional ED: Denies chills or fever(s) Eyes Eyes: Denies blurry vision or change in vision ENT ENT ED: Denies rhinorrhea or sore throat Cardiovascular Cardiovascular: Denies chest pain or palpitations Respiratory/Chest Respiratory/Chest: Denies cough or dyspnea Gastrointestinal Gastrointestinal: Reports nausea and vomiting Genitourinary Genitourinary ED: Denies dysuria or hematuria Musculoskeletal Musculoskeletal: Denies back pain or neck pain Integumentary Denies abscess or rash Neurologic Neurologic: Denies headache(s) or weakness Allergic/Immunologic Allergic/Immunologic ED: Denies mouth swelling or urticaria EXAM Physical Exam Const Vital Signs: 02/20/21 21:07 Temperature 97.2 F L Temperature Source Temporal Pulse Rate 118 H Respiratory Rate 19 H Blood Pressure 145/92 H Blood Pressure Mean 109 Pulse Ox 99 Positive well nourished, well developed and obese General Appearance ED: well developed Nutritional Appearance: obese HEENT Reports moist mucous membranes Neck supple and no JVD Resp normal respiratory effort and clear to auscultation bilaterally Cardio regular rate and regular rhythm GI normal to inspection, nondistended, normoactive bowel sounds, soft to palpation and non-tender Neuro oriented x3, CN's II-XII intact bilaterally and no sensory deficits noted Sensorium / Orientation: alert Motor Exam: strength 5/5 throughout Psych mental status grossly normal MDM MDM MDM Narrative Medical decision making narrative: IV fluids and basic labs were ordered. When the nurse went to start the IV and draw the labs, patient was no longer in the room. Patient left prior to obtaining any lab work. Patient did not tell me when she left. Discharge Plan Triage Chief Complaint: Vag Bld, Preg ED Provider: Roman Thompson Dx/Rx/DC Orders Clinical Impression: Threatened miscarriage in early Instructions: ED Possible Miscarriage ... Prescriptions: No Action clonidine HCl 0.3 mg tablet 0.4 mg PO QHS RF: 0 gabapentin 600 mg tablet 600 mg PO DAILY RF: 0 PNV-DHA 27 mg iron-1 mg -300 mg capsule 1 cap PO DAILY RF: 0 promethazine 12.5 mg tablet 12.5 mg PO Q6H PRN (Reason: nausea and vomiting) Qty: 60 RF: 2 Primary Care Provider: Care Physician,No Primary Referrals: Nyla Richardson MD [STAFF PHYSICIAN] - 3-5 Days Care Physician,No Primary [Primary Care Provider] - Disposition Disposition: Elopement
== END 2021-02-20 22:10 | disposition left against medical advice (07) ==
PROVIDERS: Emergency Provider Emergency Medicine
DX: O20.0 Threatened abortion (principal); O98.519 Other viral diseases complicating pregnancy, unspecified trimester; B00.9 Herpesviral infection, unspecified; F17.210 Nicotine dependence, cigarettes, uncomplicated; O99.330 Smoking (tobacco) complicating pregnancy, unspecified trimester; O99.210 Obesity complicating pregnancy, unspecified trimester; E66.9 Obesity, unspecified; F19.11 Other psychoactive substance abuse, in remission; Z79.899 Other long term (current) drug therapy; Z3A.00 Weeks of gestation of pregnancy not specified
CPT/HCPCS: 99281; 99282

== ENCOUNTER → 2021-03-10 | Outpatient (CLI) | payer MEDICAID, SELFPAY ==
[2021-03-13 07:07] LABS: Chlamydia By Nucleic Acid AMP Negative (Negative)
[2021-03-13 08:07] LABS: Gonococcus By Nucleic Acid AMP Negative (Negative)
[2021-03-16 14:48] LABS: HPV Reflexed? NOT INDICATED
== END | disposition home or self-care (01) ==
LOC: LABSPEC 15:59
PROVIDERS: Visit Provider Obstetrics & Gynecology
DX: Z34.90 Encounter for supervision of normal pregnancy, unspecified, unspecified trimester (principal)
CPT/HCPCS: 87491; 87591; 88175; G0145

== ENCOUNTER → 2021-03-11 13:21 | Outpatient (CLI) | payer MEDICAID, SELFPAY ==
[2021-03-10 18:32] LABS: Amphetamine Urine VISTA NEGATIVE (<1000 ng/mL); Barbiturate Urine VISTA NEGATIVE (< 200 ng/mL); Benzodiazepine Urine VISTA NEGATIVE (< 200 ng/mL); Cocaine Urine VISTA NEGATIVE (< 300 ng/mL); Ecstacy Urine VISTA NEGATIVE (< 500 ng/mL); Methadone Urine VISTA NEGATIVE (< 300 ng/mL); PCP Urine VISTA NEGATIVE (< 25 ng/mL); THC Urine VISTA NEGATIVE (< 50 ng/mL); Vista UDS pH Range 5
[2021-03-11 14:19] LABS: Absolute Lymphocyte Count 1.74 X10^3/uL (0.83-4.51); Absolute Neutrophil Count 5.3 X10^3/uL (2.0-7.7); Basophil# 0.03 X10^3/uL; Basophil% 0.4 % (0-1); Eosinophil# 0.13 X10^3/uL; Eosinophils% 1.7 % (0-5); Hematocrit 33.9 % (37-47); Hemoglobin 11.3 g/dL (12.0-15.0); Lymphocyte # 1.74 X10^3/ul (0.83-4.51); Lymphocyte % 22.6 % (19-41); Mean Corp Hgb Conc 33.3 g/dL (32-36); Mean Corpuscular Hgb 30.2 pg (27.0-32.0); Mean Corpuscular Volume 90.6 fL (81-99); Monocyte# 0.47 X10^3/uL; Monocyte% 6.1 % (0-10); NRBC Flagged by Analyzer 0 % (0-5); Neutrophil # 5.29 X10^3/uL (2.7-7.7); Neutrophil % 68.8 % (47-70); Platelet Count 333 K/mm3 (150-450); RBC Distribution Width CV 12.4 % (11.6-14.6); RBC Distribution Width SD 40.8 fl (35.1-43.9); Red Blood Count 3.74 M/mm3 (4.2-5.4); White Blood Count 7.7 K/mm3 (4.4-11.0)
[2021-03-11 15:48] LABS: HIV - WCH Non-Reactive (Nonreactive); Hepatitis B Surface Antigen Non-Reactive (Nonreactive); Hepatitis C Antibody Preliminary Reactive (Nonreactive); Rubella IgG Reactive (Nonreactive); Syphilis Antibodies Non-reactive
== END ==
PROVIDERS: Visit Provider Obstetrics & Gynecology
DX: O09.90 Supervision of high risk pregnancy, unspecified, unspecified trimester (principal); Z3A.00 Weeks of gestation of pregnancy not specified
CPT/HCPCS: 36415; 80307; 85025; 86703; 86762; 86780; 86803; 86850; 86900; 86901; 87086; 87088; 87340

== ENCOUNTER 2021-03-13 20:12 | Emergency (ER) | payer MEDICAID, SELFPAY ==
[2021-03-13 20:13] VITALS: BP 138/70; PULSE 98; RESP 18; TEMP 36.6; O2SAT 97; BMI 32.0
[2021-03-13 21:07] LABS: Absolute Lymphocyte Count 1.95 X10^3/uL (0.83-4.51); Absolute Neutrophil Count 5.6 X10^3/uL (2.0-7.7); Basophil# 0.03 X10^3/uL; Basophil% 0.4 % (0-1); Eosinophil# 0.13 X10^3/uL; Eosinophils% 1.6 % (0-5); Hematocrit 34.7 % (37-47); Hemoglobin 11.7 g/dL (12.0-15.0); Lymphocyte # 1.95 X10^3/ul (0.83-4.51); Lymphocyte % 23.9 % (19-41); Mean Corp Hgb Conc 33.7 g/dL (32-36); Mean Corpuscular Hgb 30.6 pg (27.0-32.0); Mean Corpuscular Volume 90.8 fL (81-99); Monocyte# 0.45 X10^3/uL; Monocyte% 5.5 % (0-10); NRBC Flagged by Analyzer 0 % (0-5); Neutrophil # 5.58 X10^3/uL (2.7-7.7); Neutrophil % 68.2 % (47-70); Platelet Count 329 K/mm3 (150-450); RBC Distribution Width CV 12.1 % (11.6-14.6); Red Blood Count 3.82 M/mm3 (4.2-5.4); White Blood Count 8.2 K/mm3 (4.4-11.0)
[2021-03-13] MEDS: Ondansetron 4 MG/2 ML Vial IV (21:09)
[2021-03-13] MEDS: 0.9% Normal Saline 1,000 ML 1000 ML IV (21:09)
[2021-03-13 21:20] LABS: ALB/GLOB Ratio 0.7 RATIO (0.9-2.4); AST(SGOT) 69 U/L (15-37); Alanine Aminotransfer ALT/SGPT 125 U/L (13-56); Albumin, Serum 3.1 g/dL (3.2-5.0); Alkaline Phosphatase 53 U/L (45-117); Anion Gap 8 (5-15); BUN 7 mg/dL (7-18); BUN/Creat Ratio 12.9 RATIO (10-20); Calcium,Total 9.2 mg/dL (8.5-10.1); Chloride 103 mmol/L (98-107); Creatinine, Serum 0.54 mg/dL (0.55-1.02); EST Glomerular Filtration Rate 145 mL/min (>60); Est Glom Filt Rate - Afr Amer 176 mL/min (>60); Estimated Creatinine Clearance 125.96 ml/min; Globulin 4.6 g/dL (2.2-4.2); Glucose 79 mg/dL (74-106); Lipase 93 U/L (73-393); Potassium 4.1 mmol/L (3.5-5.1); Protein, Total 7.7 g/dL (6.4-8.2); Sodium Level 133 mmol/L (136-145)
[2021-03-13 21:26] LABS: Color, Urine Yellow (Yellow); Glucose, Dipstick Normal (Normal); Leukocyte Esterase-Dipstick 25 /ul (Negative); Nitrite-Dipstick Negative (Negative); Occult Blood-Urine Negative /ul (Negative); Protein-Dipstick Negative (Negative); Urine Bilirubin Dipstick Negative (Negative); Urine Clarity Cloudy (Clear); Urine Urobilinogen Normal (Normal)
[2021-03-13 21:27] LABS: Ketone-Dipstick 150 mg/dl (Negative)
[2021-03-13 21:34] LABS: Mucous, Urine 1+ /hpf (<or=2+)
[2021-03-13 21:36] LABS: Squamous Epithelial Cells - UA 5-10 SEEN /hpf (5-10); White Blood Cells 0-5 SEEN /hpf (0-5)
[2021-03-13 21:37] LABS: Red Blood Cells-Urine 0-5 SEEN /hpf (0-5)
[2021-03-13 21:38] LABS: Bacteria 2+ /hpf (None Seen)
[2021-03-13 22:21] VITALS: RESP 18
--- NOTE | 2021-03-13 22:26 | EDS_ITS ---
HPI History of Present Illness Chief Complaint: Nausea/Vomiting Informant: patient Onset/Context/Timing Onset: Yesterday Context: Gradual Onset Timing: Continuous Quality: Cramping Location: Upper abdomen Worsened by: Nothing Relieved by: Laying on left side Narrative Narrative: Patient presents with nausea, vomiting, and abdominal pain that began yesterday. Patient states it has gradually gotten worse. Patient states her pain feels like it is cramping. Patient states it is worse over her upper abdomen. Patient states it has been constant since yesterday. Patient states nothing makes it worse. Patient states it is somewhat better when she lays on her left side. Patient admits to subjective fevers and chills. Patient denies any diarrhea, melena, or hematochezia. Patient denies any dysuria or hematuria. Patient also admits to a headache. Patient is approximately 12 weeks . [facility] Medical History Alcohol abuse Anemia Bone fracture Depression affecting H/O emotional problems Hepatitis C test positive Herpes History of drug abuse Hives Positive urine drug screen complicated by subutex maintenance, antepartum Tobacco abuse UTI (urinary tract infection) Home Medications promethazine 12.5 mg tablet 12.5 mg PO Q6H PRN #60 tab 02/07/21 [Rx Last Taken Unknown] buprenorphine HCl [Subutex] 4 mg SUBLINGUAL DAILY 03/13/21 [History Last Taken Unknown] Allergy/AdvReac Type Severity Reaction Status Date / Time diphenhydramine HCl Allergy Hives Verified 03/13/21 20:17 [From Benadryl] Penicillins Allergy Hives Verified 03/13/21 20:17 Family History Other Alcoholism Anxiety Arthritis Cancer Cervical cancer Depression Diabetes Mental disorder Ovarian cancer Psychiatric care Seizures Thyroid disorder Surgical History History of Social History household members: family housing: house number of children: 2 Smoking Status: Current every day smoker tobacco type: cigarettes alcohol intake: former substance use type: former substance user Date of last use: 05/2020 what type of physical activity do you participate in: none do you feel safe at home: Yes ROS ROS ED Constitutional Constitutional ED: Reports chills, fever(s) and subjective Eyes Eyes: Denies blurry vision or change in vision ENT ENT ED: Denies rhinorrhea or sore throat Cardiovascular Cardiovascular: Denies chest pain or palpitations Respiratory/Chest Respiratory/Chest: Denies cough or dyspnea Gastrointestinal Gastrointestinal: Reports abdominal pain, nausea and vomiting; Denies diarrhea or melena Genitourinary Genitourinary ED: Denies dysuria or hematuria Musculoskeletal Musculoskeletal: Denies back pain or neck pain Integumentary Denies abscess or rash Neurologic Neurologic: Reports headache(s); Denies weakness Allergic/Immunologic Allergic/Immunologic ED: Denies mouth swelling or urticaria EXAM Physical Exam Const Vital Signs: 03/13/21 20:13 03/13/21 22:21 Temperature 97.9 F Temperature Source Temporal Pulse Rate 98 Respiratory Rate 18 18 Blood Pressure 138/70 H Blood Pressure Mean 92 Pulse Ox 97 Oxygen Delivery Method Room Air Positive well nourished, well developed and obese General Appearance ED: well developed Nutritional Appearance: obese HEENT Reports moist mucous membranes Neck supple and no JVD Resp normal respiratory effort and clear to auscultation bilaterally Cardio regular rate, regular rhythm and no murmurs GI normal to inspection, nondistended, normoactive bowel sounds Palpation: soft and tender epigastric, LUQ and RUQ; Negative for guarding or rebound tenderness present Extremity normal to inspection General Extremety ED: Negative for edema or tenderness General Extremity: Negative for edema Neuro oriented x3, CN's II-XII intact bilaterally and no sensory deficits noted Sensorium / Orientation: alert Motor Exam: strength 5/5 throughout Psych mental status grossly normal Skin no rashes or lesions noted MDM MDM MDM Narrative Medical decision making narrative: Patient was given IV fluids. Patient was given Zofran. CBC was within normal limits. Comprehensive metabolic profile was essentially within normal limits. Lipase was normal. Urinalysis showed k etones of 150 but there is no evidence of urinary tract infection. Patient was feeling better on reevaluation. Patient was instructed to drink small amounts of fluids more frequently. Patient was instructed to follow-up with her primary care physician and [facility] in 3 to 5 days. Patient understood and was agreeable with the plan. All questions were answered. Lab Data Attestation: I reviewed the patient's lab results. Labs: Laboratory Results - last 24 hr 03/13/21 03/13/21 03/13/21 20:30 20:30 20:35 WBC 8.2 RBC 3.82 L Hgb 11.7 L Hct 34.7 L MCV 90.8 MCH 30.6 MCHC 33.7 RDW Std Deviation 40.0 RDW Coeff of [place]nell 12.1 Plt Count 329 MPV 9.0 Immature Gran % (Auto) 0.400 Neut % (Auto) 68.2 Lymph % (Auto) 23.9 [place] % (Auto) 5.5 Eos % (Auto) 1.6 Baso % (Auto) 0.4 Absolute Neuts (auto) 5.6 Absolute Lymphs (auto) 1.95 Nucleated RBC % 0 Sodium 133 L Potassium 4.1 Chloride 103 Carbon Dioxide 22.0 Anion Gap 8 BUN 7 Creatinine 0.54 L Estim Creat Clear Calc 125.96 Est GFR (MDRD) Af Amer 176 Est GFR (MDRD) Non-Af 145 BUN/Creatinine Ratio 12.9 Glucose 79 Calcium 9.2 Total Bilirubin 0.50 AST 69 H ALT 125 H Alkaline Phosphatase 53 Total Protein 7.7 Albumin 3.1 L Globulin 4.6 H Albumin/Globulin Ratio 0.7 L Lipase 93 Urine Color Yellow Urine Clarity Cloudy Urine pH 6.0 Ur Specific [place] 1.020 Urine Protein Negative Urine Glucose (UA) Normal Urine Ketones 150 A* Urine Occult Blood Negative Urine Nitrite Negative Urine Bilirubin Negative Urine Urobilinogen Normal Ur Leukocyte Esterase 25 H Urine RBC 0-5 SEEN Urine WBC 0-5 SEEN Ur Squamous Epith Cells 5-10 SEEN Urine Bacteria 2+ Urine Mucus 1+ Discharge Plan Triage Chief Complaint: Nausea/Vomiting ED Provider: Roman Thompson Dx/Rx/DC Orders Clinical Impression: Nausea & vomiting, Instructions: ED Vomiting (Adult), ED Established ... Prescriptions: No Action buprenorphine HCl [Subutex] 2 mg Tablet, Sublingual 4 mg SUBLINGUAL DAILY RF: 0 promethazine 12.5 mg tablet 12.5 mg PO Q6H PRN (Reason: nausea and vomiting) Qty: 60 RF: 2 Primary Care Provider: Nyla Richardson Referrals: Nyla Richardson MD [Primary Care Provider] - 3-5 Days Disposition Disposition: Home, Self Care
[2021-03-13 23:23] VITALS: BP 132/60; PULSE 89; RESP 18
== END 2021-03-13 23:24 | disposition home or self-care (01) ==
PROVIDERS: Emergency Provider Emergency Medicine; PCP Obstetrics & Gynecology
DX: O21.8 Other vomiting complicating pregnancy (principal); O26.891 Other specified pregnancy related conditions, first trimester; R51.9 Headache, unspecified; O99.331 Smoking (tobacco) complicating pregnancy, first trimester; F17.210 Nicotine dependence, cigarettes, uncomplicated; O99.211 Obesity complicating pregnancy, first trimester; E66.9 Obesity, unspecified; Z3A.12 12 weeks gestation of pregnancy
CPT/HCPCS: 80053; 81001; 83690; 85025; 96361; 96374; 99285; J7030; A4216; J2405

== ENCOUNTER → 2021-04-06 14:50 | Outpatient (CLI) | payer MEDICAID, SELFPAY ==
[2021-04-06 15:41] LABS: Glucose Challenge Gest 1H 50g 105 mg/dL (70-140)
== END ==
PROVIDERS: Obstetrics & Gynecology; Referring Provider Obstetrics & Gynecology; Visit Provider Obstetrics & Gynecology
DX: Z34.90 Encounter for supervision of normal pregnancy, unspecified, unspecified trimester (principal); Z3A.00 Weeks of gestation of pregnancy not specified
CPT/HCPCS: 36415; 82950

== ENCOUNTER 2021-04-23 22:27 | Emergency (ER) | payer MEDICAID, SELFPAY ==
[2021-04-23 22:27] VITALS: PULSE 127; RESP 25; TEMP 35.8; O2SAT 99; BMI 31.2
[2021-04-23 22:30] VITALS: BP 129/62
--- NOTE | 2021-04-23 22:37 | EX.ED.DYSGE1 ---
HPI History of Present Illness Chief Complaint: Nausea/Vomiting Informant: patient Narrative Narrative: Patient presents with nausea vomiting. This started about three or 4 hours ago. She did have problems with hyperemesis gravidarum. However the last 4 weeks she has had morning vomiting only and after that she has felt fine. She is currently at about 16 weeks gestation. This started shortly after eating a chicken wrap that was made at someone's house. She states that the chicken did not look or taste right. She was a little concerned about it at the time. She has not had diarrhea but feels that she might have that soon. She has been getting intermittent epigastric cramping. She then vomits and feels better for period of time and that cycle has repeated itself. She is not having pelvic pain or cramping. She does not have bleeding or discharge. No back pain. She has very mild dysuria but that has not been uncommon for her. No fevers. Nothing specifically makes this better or worse. [facility] Medical History Alcohol abuse Anemia Bone fracture Depression affecting H/O emotional problems Hepatitis C test positive Herpes History of drug abuse Hives Positive urine drug screen complicated by subutex maintenance, antepartum Tobacco abuse UTI (urinary tract infection) Home Medications buprenorphine HCl [Subutex] 4 mg SUBLINGUAL DAILY 03/13/21 [History Last Taken Unknown] ondansetron 4 mg disintegrating tablet 4 mg PO Q4H PRN #60 tab 03/14/21 [Rx Last Taken Unknown] polyethylene glycol 3350 17 gram/dose oral powder 17 g PO DAILY #119 g 04/06/21 [Rx Last Taken Unknown] Allergy/AdvReac Type Severity Reaction Status Date / Time diphenhydramine HCl Allergy Hives Verified 04/23/21 22:30 [From Benadryl] Penicillins Allergy Hives Verified 04/23/21 22:30 Family History Other Alcoholism Anxiety Arthritis Cancer Cervical cancer Depression Diabetes Mental disorder Ovarian cancer Psychiatric care Seizures Thyroid disorder Surgical History History of Social History household members: family housing: house number of children: 2 Smoking Status: Current every day smoker tobacco type: cigarettes alcohol intake: former substance use type: former substance user Date of last use: 05/2020 what type of physical activity do you participate in: none do you feel safe at home: Yes ROS ROS ED Constitutional Constitutional ED: Reports chills; Denies fever(s) ENT ENT ED: Denies rhinorrhea or sore throat Cardiovascular Cardiovascular: Denies chest pain or palpitations Respiratory/Chest Respiratory/Chest: Denies cough or dyspnea Gastrointestinal Gastrointestinal: Reports abdominal pain, nausea, vomiting and other Details: See history of present illness. Occasional epigastric cramping. No pain in any other area. ; Denies constipation or diarrhea Genitourinary Genitourinary ED: Reports dysuria and other Details: Approximately 16 weeks gestation. ; Denies hematuria or urinary frequency Musculoskeletal Musculoskeletal: Denies myalgias Integumentary Denies rash Neurologic Neurologic: Denies headache(s) Endocrine Endocrinology: Denies polydipsia or polyuria Allergic/Immunologic Allergic/Immunologic ED: Denies urticaria EXAM Physical Exam Const Vital Signs: 04/23/21 22:27 04/23/21 22:30 04/24/21 00:35 Temperature 96.5 F L Temperature Source Temporal Pulse Rate 127 H 77 Respiratory Rate 25 H Blood Pressure 129/62 H Blood Pressure Mean 84 Pulse Ox 99 100 Oxygen Delivery Method Room Air Positive well nourished and well developed General Appearance ED: well developed and NAD HEENT Reports moist mucous membranes Eyes General Eye ED: Negative for pale conjunctiva Neck no JVD Chest Wall inspection of chest normal Resp normal respiratory effort and clear to auscultation bilaterally Cardio regular rate, regular rhythm and no murmurs GI normal to inspection, nondistended, normoactive bowel sounds, non-tender and non-distended GI Narrative: Patient just recently vomited. She is feeling better at this time. She does not have a tender abdomen at all. No lower abdominal or pelvic area tenderness either. Palpation: soft Back/Spine no CVA tenderness Extremity normal to inspection Neuro Sensorium / Orientation: alert Psych mental status grossly normal Skin no rashes or lesions noted MDM MDM MDM Narrative Medical decision making narrative: Electrolytes show no marked abnormalities. Urine is slightly cloudy. There are some white cells but there is also a fair number of squamous epithelial cells showing that this is not a clean-catch. Patient has been having this mild dysuria off and on for some time. She has had her urine checked multiple times and they have never found infection. We will send this off for culture. However, based on the totality of her history and the increased squamous epithelial cells, we will not treat with antibiotics at this time. These will likely induce more nausea and vomiting which could hurt her more than help her. Certainly, if her culture turns positive we will need to initiate treatment. Her dysuria is not any different today than it has been off and on throughout . Patient is not in vomited since her meds and fluids. She has about half the fluids in. She is feeling much better. She is not nauseated at this time. She states she does have Phenergan and Zofran at home. She had tried to take it but had vomited right before taking it so she came in here instead. Her abdomen still benign. She would like us to check heart tones. She is not having any pelvic symptoms but we will be happy to do these. Patient also talked to her sister. Evidently her sister is having some similar symptoms after eating the same food. I think her symptoms are likely related to the food based on the information we have at this time. Patient is still doing well. heart tones are 135. We will get her home at this time. Lab Data Labs: Laboratory Results - last 24 hr 04/23/21 04/23/21 22:49 23:20 Sodium 136 Potassium 3.9 Chloride 105 Carbon Dioxide 20.0 L Anion Gap 11 BUN 12 Creatinine 0.53 L Estim Creat Clear Calc 128.34 Est GFR (MDRD) Af Amer 182 Est GFR (MDRD) Non-Af 150 BUN/Creatinine Ratio 22.8 H Glucose 99 Calcium 9.8 Urine Color Yellow Urine Clarity Sl. Cloudy Urine pH 5.0 Ur Specific [place] 1.025 Urine Protein 15 H Urine Glucose (UA) Normal Urine Ketones 50 H Urine Occult Blood 10 H Urine Nitrite Negative Urine Bilirubin Negative Urine Urobilinogen Normal Ur Leukocyte Esterase 100 H Urine RBC 0-5 SEEN Urine WBC 10-25 SEEN Ur Squamous Epith Cells 10-25 SEEN Urine Bacteria 3+ Urine Mucus 0 SEEN Discharge Plan Triage Chief Complaint: Nausea/Vomiting ED Provider: Raymond Smiley Dx/Rx/DC Orders Clinical Impression: Food poisoning, Nausea & vomiting, Second trimester Instructions: Preventing Food Poisoning, ED Vomiting (Adult) Prescriptions: No Action polyethylene glycol 3350 [Miralax] 17 gram/dose powder 17 g PO DAILY Qty: 119 RF: 3 buprenorphine HCl [Subutex] 2 mg Tablet, Sublingual 4 mg SUBLINGUAL DAILY RF: 0 ondansetron 4 mg tablet,disintegrating 4 mg PO Q4H PRN (Reason: nausea and vomiting) Qty: 60 RF: 2 Primary Care Provider: Care Physician,No Primary Referrals: Nyla Richardson MD [STAFF PHYSICIAN] - 3-5 Days if not improving Care Physician,No Primary [Primary Care Provider] - Disposition Disposition: Home, Self Care
[2021-04-23] MEDS: Dicyclomine 20 MG/2 ML Vial IM (22:51)
[2021-04-23] MEDS: 0.9% Normal Saline 1,000 ML 1000 ML IV (23:05)
[2021-04-23] MEDS: Ondansetron 4 MG/2 ML Vial IV (23:05)
[2021-04-23 23:17] LABS: Anion Gap 11 (5-15); BUN 12 mg/dL (7-18); BUN/Creat Ratio 22.8 RATIO (10-20); Calcium,Total 9.8 mg/dL (8.5-10.1); Chloride 105 mmol/L (98-107); Creatinine, Serum 0.53 mg/dL (0.55-1.02); EST Glomerular Filtration Rate 150 mL/min (>60); Est Glom Filt Rate - Afr Amer 182 mL/min (>60); Estimated Creatinine Clearance 128.34 ml/min; Glucose 99 mg/dL (74-106); Potassium 3.9 mmol/L (3.5-5.1); Sodium Level 136 mmol/L (136-145)
[2021-04-23 23:25] LABS: Mucous, Urine 0 SEEN /hpf (<or=2+)
[2021-04-23 23:38] LABS: Color, Urine Yellow (Yellow); Glucose, Dipstick Normal (Normal); Ketone-Dipstick 50 mg/dl (Negative); Leukocyte Esterase-Dipstick 100 /ul (Negative); Nitrite-Dipstick Negative (Negative); Occult Blood-Urine 10 /ul (Negative); Protein-Dipstick 15 mg/dl (Negative); Specific Gravity, Urine 1.025 (1.002-1.030); Urine Bilirubin Dipstick Negative (Negative); Urine Clarity Sl. Cloudy (Clear); Urine Urobilinogen Normal (Normal)
[2021-04-23 23:46] LABS: Red Blood Cells-Urine 0-5 SEEN /hpf (0-5); Squamous Epithelial Cells - UA 10-25 SEEN /hpf (5-10); White Blood Cells 10-25 SEEN /hpf (0-5)
[2021-04-23 23:47] LABS: Bacteria 3+ /hpf (None Seen)
[2021-04-24 00:35] VITALS: PULSE 77; O2SAT 100
[2021-04-24 00:59] VITALS: BP 118/91; PULSE 89; RESP 18; O2SAT 100
== END 2021-04-24 01:00 | disposition home or self-care (01) ==
PROVIDERS: Emergency Provider Emergency Medicine
DX: O26.892 Other specified pregnancy related conditions, second trimester (principal); A05.9 Bacterial foodborne intoxication, unspecified; O21.0 Mild hyperemesis gravidarum; O99.332 Smoking (tobacco) complicating pregnancy, second trimester; F17.210 Nicotine dependence, cigarettes, uncomplicated; O99.342 Other mental disorders complicating pregnancy, second trimester; F32.A Depression, unspecified; F19.11 Other psychoactive substance abuse, in remission; Z3A.16 16 weeks gestation of pregnancy; Z79.899 Other long term (current) drug therapy
CPT/HCPCS: 80048; 81001; 87086; 87088; 96361; 96372; 96374; 99284; J7030; A4216; J2405

== ENCOUNTER → 2021-05-05 11:49 | Outpatient (CLI) | payer MEDICAID, SELFPAY ==
[2021-05-08 21:06] LABS: HCV Quant. RNA PCR 68600 IU/mL (.)
[2021-05-09 14:25] LABS: HCV log 10 4.836 (.)
== END ==
LOC: LAB 11:50 → PAVLAB 11:55
PROVIDERS: Referring Provider Obstetrics & Gynecology; Visit Provider Obstetrics & Gynecology
DX: B19.20 Unspecified viral hepatitis C without hepatic coma (principal)
CPT/HCPCS: 36415; 87522

== ENCOUNTER 2021-06-29 13:30 | Outpatient (CLI) | payer MEDICAID, SELFPAY ==
[2021-06-29 13:58] LABS: Amphetamine Urine VISTA NEGATIVE (<1000 ng/mL); Barbiturate Urine VISTA NEGATIVE (< 200 ng/mL); Benzodiazepine Urine VISTA NEGATIVE (< 200 ng/mL); Cocaine Urine VISTA NEGATIVE (< 300 ng/mL); Ecstacy Urine VISTA NEGATIVE (< 500 ng/mL); Methadone Urine VISTA NEGATIVE (< 300 ng/mL); PCP Urine VISTA NEGATIVE (< 25 ng/mL); THC Urine VISTA NEGATIVE (< 50 ng/mL); Vista UDS pH Range 6
== END 2021-06-29 23:59 | disposition home or self-care (01) ==
LOC: LABSPEC 13:32
PROVIDERS: Referring Provider Nurse Practitioner Women's Health; Visit Provider Nurse Practitioner Women's Health
DX: Z87.898 Personal history of other specified conditions (principal); Z3A.15 15 weeks gestation of pregnancy
CPT/HCPCS: 80307

== ENCOUNTER → 2021-09-15 | Outpatient (CLI) | payer MEDICAID, SELFPAY ==
[2021-09-15 16:19] LABS: Amphetamine Urine VISTA POSITIVE (<1000 ng/mL); Barbiturate Urine VISTA NEGATIVE (< 200 ng/mL); Benzodiazepine Urine VISTA NEGATIVE (< 200 ng/mL); Cocaine Urine VISTA NEGATIVE (< 300 ng/mL); Ecstacy Urine VISTA NEGATIVE (< 500 ng/mL); Methadone Urine VISTA NEGATIVE (< 300 ng/mL); PCP Urine VISTA NEGATIVE (< 25 ng/mL); THC Urine VISTA NEGATIVE (< 50 ng/mL); Vista UDS pH Range 6
[2021-09-19 22:06] LABS: Chlamydia By Nucleic Acid AMP Negative (Negative)
[2021-09-19 22:26] LABS: Gonococcus By Nucleic Acid AMP Negative (Negative)
== END | disposition home or self-care (01) ==
LOC: LABSPEC 15:25
PROVIDERS: Referring Provider Obstetrics & Gynecology; Visit Provider Obstetrics & Gynecology
DX: O09.90 Supervision of high risk pregnancy, unspecified, unspecified trimester (principal); Z87.898 Personal history of other specified conditions
CPT/HCPCS: 80307; 87081; 87491; 87591

== ENCOUNTER 2021-09-21 14:10 | Inpatient (IN) | payer MEDICAID, SELFPAY ==
[2021-09-21] VITALS (15 sets, daily range): BP systolic 107–130; BP diastolic 55–81; PULSE 68–92; RESP 16–18; TEMP 36.1–36.4; O2SAT 95–100; BMI 30.2
[2021-09-21] MEDS: Acetaminophen 500 MG Tablet 1000 MG PO ×2 (15:02→21:35)
[2021-09-21] MEDS: Lactated Ringers 1,000 ML 999 ML IV (15:15)
[2021-09-21 15:49] LABS: Absolute Lymphocyte Count 2.15 X10^3/uL (0.83-4.51); Absolute Neutrophil Count 5.8 X10^3/uL (2.0-7.7); Basophil# 0.05 X10^3/uL; Basophil% 0.6 % (0-1); Eosinophil# 0.15 X10^3/uL; Eosinophils% 1.7 % (0-5); Hematocrit 32.6 % (37-47); Hemoglobin 10.5 g/dL (12.0-15.0); Lymphocyte # 2.15 X10^3/ul (0.83-4.51); Lymphocyte % 24.5 % (19-41); Mean Corp Hgb Conc 32.2 g/dL (32-36); Mean Corpuscular Hgb 27.7 pg (27.0-32.0); Mean Platelet Vol. 10.1 fl (6.2-12.0); Monocyte# 0.54 X10^3/uL; Monocyte% 6.2 % (0-10); NRBC Flagged by Analyzer 0 % (0-5); Neutrophil # 5.81 X10^3/uL (2.7-7.7); Neutrophil % 66.3 % (47-70); Platelet Count 381 K/mm3 (150-450); RBC Distribution Width CV 13.6 % (11.6-14.6); RBC Distribution Width SD 42.5 fl (35.1-43.9); Red Blood Count 3.79 M/mm3 (4.2-5.4); White Blood Count 8.8 K/mm3 (4.4-11.0)
[2021-09-21] MEDS: Lactated Ringers 1,000 ML 150 ML IV (16:16)
--- NOTE | 2021-09-21 17:12 | HP.PCM.OB_ITS ---
HPI - General General Date of Admission: 09/21/21 HPI Narrative REJI LOPEZ, is a 25 F@ 39 weeks 2 days who presents to L&D for a repeat section. She is a recovering narcotic drug addict and is on subutex per Dr. Hightower at [facility] [place]. Her first section in 2018 was for breech presentation. Baby was breech 2 days ago and is vertex today,however her cervix is only 1 cm and she is remote from labor. She tested positive for methamphetamines this week and it was discussed with our team that she is not a good candidate for a due to this. Maternal Data Information CHIN Calculator Estimated Delivery Date Method Current WG Current Estimate 09/26/21 LMP (Certain) 39w 2d PFSH PFSH Medical History Alcohol abuse Anemia Bone fracture Depression affecting H/O emotional problems Hepatitis C test positive Herpes History of drug abuse Hives Positive urine drug screen complicated by subutex maintenance, antepartum Tobacco abuse UTI (urinary tract infection) Home Medications buprenorphine HCl 2 mg sublingual tablet 12 mg SUBLINGUAL 3XD tab 06/02/21 [History Last Taken 09/21/21] ondansetron 4 mg disintegrating tablet 4 mg PO Q4H PRN #60 tab 07/29/21 [Rx Last Taken Unknown] famotidine 20 mg PO DAILY 09/21/21 [History Last Taken Unknown] valacyclovir [Valtrex] 500 mg PO BID 09/21/21 [History Last Taken Unknown] Allergy/AdvReac Type Severity Reaction Status Date / Time clindamycin Allergy Hives Verified 09/21/21 15:25 diphenhydramine HCl Allergy Hives Verified 09/20/21 13:00 [From Benadryl] Penicillins Allergy Hives Verified 09/20/21 13:00 Family History Other Alcoholism Anxiety Arthritis Cancer Cervical cancer Depression Diabetes Mental disorder Ovarian cancer Psychiatric care Seizures Thyroid disorder Surgical History History of Social History household members: family housing: house number of children: 2 Smoking Status: Current every day smoker tobacco type: cigarettes alcohol intake: former substance use type: former substance user Date of last use: 05/2020 what type of physical activity do you participate in: none do you feel safe at home: Yes History 4 Elective abortions Hx Para 2 Spontaneous abortions 1 Hx # Term Pregnancies Ectopic pregnancies Hx # Pregnancies Multiple births # of living children 2 Past Pregnancies Del. Date Name GA/Weeks Outcome Route Bth Weight Infant Gen Labor Lgth Anesthesia Del Locatn Provider FOB 02/16/15 Cayde 38 live - full term 6lbs 6.5oz Male e pidural [facility] MarleenPaul 04/16/18 Payslee 39 live - full term 7lbs Female spinal [facility] CornelioTaryncoby Delivery Date: 02/16/15 No notes to display Delivery Date: 04/16/18 Breech presentation, scheduled c/s Lorie Lau Visit Details Expected Delivery Route/Plan desires TOLAC patient counseled regarding risks/benefits of trial of labor versus repeat . ACOG/uptodate education given to patient. 78 % likelihood of success per calculator TOLAC consent form signed: [] Labor Preferences- CB/BF classes: no labor support person: Tulio labor intervention preferences: [] pain management options preferred: epidural cut cord/dad catch: cord yes : no PP control planned: wants BS discussed possible routes of delivery and associated risks: [] special requests: [] Plans Covid status: positive in beginning of , counseled regarding risk of covid in vs vaccination and declined vaccination Flu vaccine: declined Tdap vaccine: declined Rhogam: na LARC form signed: yes Problem list reviewed and updated with the most current plan of care details and appropriate orders placed. Relevant counseling for the gestational age provided. Continue routine care and follow up unless otherwise noted in visit notes/problem list details OB Flowsheet Initial Weight: Not Recorded Date -?-?-?-?-?-?-?-?-?-?-?-?- EGA Weight BP Urine Prot -?-?-?-?-?-?--?-?-?-?-?-?- Glucose FHR FuHt Pres Dilation -?-?-?-?-?-?-?-?-?-?-?-?- Effaced St Visit Note 02/17/21 -?-?-?-?-?-?-?-?-?-?-?-?- 8w 3d 177 lb -?-?-?-?-?-?-?-?-?-?-?-?- 168 -?-?-?-?-?-?-?-?-?-?-?-?- GP - work in for spotting. FHT nl. No evidence of JEB. 03/10/21 -?-?-?-?-?-?-?-?-?-?-?-?- 11w 3d 177 lb 111/60 -?-?-?-?-?-?-?-?-?-?-?-?- 160 -?-?-?-?-?-?-?-?-?-?-?-?- SM- no vb lof go od fm SM- no vb lof in recovery no w two weeks, [facility] -?-?-?-?-?-?-?-?-?-?-?-?- 15w 2d 173 lb 2 oz 108/60 Nega tive -?-?-?-?-?-?-?-?-?-?-?-?- Negative 145 -?-?-?-?-?-?-?-?-?-?-?-?- JV- no lof, vagi nal bleeding, or cramping. bedside quick scan done today to reassure fht due to h/o drug abuse and miscarriage. 05/05/21 -?-?-?-?-?-?-?-?-?--?-?-?- 19w 3d 169 lb 4 oz 126/72 Nega tive -?-?-?-?-?-?-?-?-?-?-?-?- Negative 148 -?-?-?-?-?-?-?-?-?-?-?-?- MH-No VB, LOF. S aw MFM 04/27 and had US. Will get report. Has not had Hep C titer done:will do today. Still some nausea and not taking PNV, ASA:reviewed start of those and enc. Will see MFM q4wk. Will leave [facility] 05/16/21 06/02/21 -?-?-?-?-?-?-?-?-?-?-?-?- 23w 3d 164 lb 4 oz 120/72 Nega tive -?-?-?-?-?-?-?-?-?-?-?-?- Negative 147 -?-?-?-?-?-?-?-?-?-?-?-?- JV- no lof, vagi nal bleeding, or dec fm. suboxone is at 8 mg now. Pt has growth scans every 4 weeks. next is due Jun 09. last one was normal. GCT next visit. 06/29/21 -?-?-?-?-?-?-?-?-?-?-?-?- 27w 2d 165 lb 9.6 oz 108/60 Ne gative -?-?-?-?-?-?-?-?-?-?-?-?- Negative 148 27 -?-?-?-?-?-?-?-?-?-?-?-?- MH-No VB, LOF. G ood FM. Stable housing now. Will do 28 wk labs next week. Growth US scheduled q4wk [facility] 07/19/21 -?-?-?-?-?-?-?-?-?-?-?-?- 30w 1d 165 lb 2 oz 110/72 Nega tive -?-?-?-?-?-?-?-?-?-?-?-?- Negative 145 -?-?-?-?-?-?-?-?-?-?-?-?- JV- pt needs to do her gct still. has growth ultrasound on . very anxious. rx for vistaril given. she is also not taking a baby asa as prescribed. asa ordered 08/18/21 -?-?-?-?-?-?-?-?-?-?-?-?- 34w 3d 165 lb 8 oz 120/80 Nega tive -?-?-?-?-?-?-?-?-?-?-?-?- Negative -?-?-?-?-?-?-?-?-?-?-?-?- Sm- no vb lof go od fm no regular ctx Sm- no vb lof good fm no reg ular ctx BPP just done at [facility] discussed delivery by 39 weeks patient left quickly due to meeting with property portfolio officer 09/15/21 -?-?-?-?-?-?-?-?-?-?-?-?- 38w 3d 163 lb 6 oz 118/82 Nega tive -?-?-?-?-?-?-?-?-?-?-?-?- Negative 135 1 -?-?-?-?-?-?-?-?-?-?-?-?- 50 -3 JV- pt has been non-compliant and not showing up for appt. her FOB was found however. nst reactive. needs to start valtrex. we discussed recommendation for delivery at 39 weeks but she is not willing to undergo another . She states I am a drug addict and I can not afford to have to take pain medication for a section scar pain plan to bring back on sunday and re-assess. may be able to induce with cathy and campbell mid week when all providers are available for back up if possible. 09/20/21 -?-?-?-?-?-?-?-?-?-?-?-?- 39w 1d 164 lb 130/80 Negative -?-?-?-?-?-?-?-?-?-?-?-?- Negative 140 39 2 -?-?-?-?-?-?-?-?-?-?-?-?- 50 -3 JV- breech on exam today. plan for repeat section and btl sunday at 4 pm. pt admitted to using meth during the . she is on 4 mg of subudex and sees dr. hightower today. 09/21/21 -?-?-?-?-?-?-?-?-?-?-?-?- 39w 2d 165 lb 2.02 oz 117/7 3 117/73 -?-?-?-?-?-?-?-?-?-?-?-?- -?-?-?-?-?-?-?-?-?-?-?-?- ROS Constitutional Constitutional: Denies change in weight, fatigue, fever(s), headache(s), poor appetite or weakness Eyes Eyes: Denies blurry vision, change in vision, seeing flashes or spots in vision ENT HEENT: Denies dizziness, headache(s), loss taste/smell or sore throat Cardiovascular Cardiovascular: Denies chest pain, dizziness, dyspnea, irregular heart rhythm, leg edema, palpitations, rapid heart rate or vomiting Respiratory/Chest Respiratory/Chest: Denies chest tightness, cough, dyspnea or breast pain Gastrointestinal Gastrointestinal: Denies abdominal pain, anorexia, constipation, cramping, diarrhea, hemorrhoids, vomiting or weight changes Genitourinary Genitourinary: Denies dysuria, flank pain, genital lesions, genital pain, urinary frequency or urinary urgency Musculoskeletal Musculoskeletal: Denies back pain, difficulty walking, joint pain, limited range of motion, muscle cramps or numbness Integumentary Integumentary: Denies lesions or unusual bruising Neurologic Neurologic: Denies abnormal movements, abnormal speech, dizziness, numbness, seizure-like activity or syncope Psychiatric Psychiatric: Denies anxiety, behavioral changes, change in appetite, change in libido, cognitive impairment, confusion, depression, difficulty concentrating, hallucinations or suicidal thoughts Endocrine Endocrinology: Denies excessive sweating, polydipsia or polyuria Hematologic/Lymphatic Hematologic/Lymphatic: Denies easy bleeding, easy bruising or lymphadenopathy Allergic/Immunologic Allergic/Immunologic: Denies itchy eyes, lip swelling, seasonal rhinorrhea, rhinitis, throat swelling, tongue swelling, eczemia, wheezing or asthma Vital Signs Vital Signs Vital Signs: 09/21/21 15:00 09/21/21 15:05 09/21/21 16:04 Temperature 97.6 F L Temperature Source Temporal Pulse Rate 75 74 68 Respiratory Rate 18 Blood Pressure 117/73 117/73 Blood Pressure Mean 87 BP Systolic 117 BP Diastolic 73 Blood Pressure Source Monitor Blood Pressure Position Semi-Fowlers Blood Pressure Location Right Arm Pulse Ox 98 98 98 Oxygen Delivery Method Room Air Weight Weight: 165 lb 2.02 oz Body Mass Index (BMI) 30.2 Physical Exam Const alert, oriented x3, no apparent distress and healthy appearing General Appearance: cooperative; Negative for anxious HEENT normocephalic Face and Sinus: normal facial exam Eyes EOMs intact bilaterally and no scleral icterus General Eye: normal appearance of both eyes Neck full ROM and supple Lymph Lymphatic: no lymphadenopathy noted Chest Chest: abnormal inspection of the chest Resp normal respiratory effort Effort and Inspection: able to speak in complete sentences Cardio regular rate GI soft to palpation and non-tender Inspection: gravid Palpation: soft; Negative for tender external exam normal Amniotic Fluid: other cx /50/-3 Back/Spine no CVA tenderness Extremity normal to inspection, full ROM and no clubbing, cyanosis or edema General Extremity: Negative for calf tenderness or edema Skin Lesions: no lesions Rashes: no rashes Psych mental status grossly normal Labs Labs Labs: Blood Type A POSITIVE Antibody Screen NEGATIVE Hct 32.6 % (37-47) L Hgb 10.5 g/dL (12.0-15.0) L Obstetrics US Syphilis Total Ab Non-reactive Rubella IgG Antibody Reactive (Nonreactive) Hep Bs Antigen Non-Reactive (Nonreactive) Chlamydia DNA (ITA) Negative (Negative) Neisseria gonorrhoeae DNA (ITA) Negative (Negative) HIV 1&2 Antibody Non-Reactive (Nonreactive) Glucose 1 Hr 50 gm 105 mg/dL (70-140) Rhogam given: No Assessment & Plan (1) Contraception management: QUALIFIERS: Contraceptive encounter type: sterilization Qualified Code(s): Z30.2 - Encounter for sterilization COMMENT: wants pp BS. title 19 signed 08/18 (2) Genital herpes: QUALIFIERS: Herpes simplex infection site: vulvovaginitis Qualified Code(s): A60.04 - Herpesviral vulvovaginitis COMMENT: plan valtrex at 36 weeks (3) Bipolar 1 disorder: COMMENT: anxiety predominant. counseling center. no meds. (4) COVID-19 affecting , antepartum: COMMENT: baby ASA, growth scans starting at 28 weeks (5) History of : COMMENT: 04/16/18- breech presentation, preiovus . (6) Hepatitis C test positive: COMMENT: notify peds in delivery, MFM appt every 4 weeks. baseline labs- liver enz elevated. Growth US every 4 weeks with testing once a week starting at 32 weeks Titer positive, 06/23 FU growth nl, 08/18 growth nl (7) Supervision of high risk , antepartum: COMMENT: PRR CHIN: 09/26/21 PC: Joelle Vásquez(does not have custody of children but has visitation) FOB not involved (8) : QUALIFIERS: Weeks of gestation: 39 weeks Qualified Code(s): Z3A.39 - 39 weeks gestation of COMMENT: nipt- low risk and carrier-neg . Normal anatomy US. GBS neg (9) Tobacco abuse: COMMENT: encouraged cessation; about 1/2 ppd (10) History of drug abuse: COMMENT: heroin/meth exposure first trimester. on subutex. sees Dr Hightower. been in recovery since mid february living at [facility]. Leaving [place] on 05/16/21 PLAN: After discussing the patient's diagnosis and treatment plan options, patient wishes to proceed with surgical management. I have discussed with the patient the risks, benefits, and alternatives of the procedure which include but are not limited to risks of anesthesia, bleeding, infection, possible damage to bowel, bladder, or surrounding vasculature which could lead to additional surgery to evaluate any complications. Patient agrees to procedure and wishes to proceed. ACOG/uptodate references given for additional information regarding procedure. plan for repeat section and bilateral tubal ligation
--- NOTE | 2021-09-21 17:16 | PCM.DC ---
Discharge Instructions Diet Discharge Diet: No restrictions Activity Discharge Activity: May Not Drive (for 2 weeks or while taking narcotic pain medications.), May Shower and May Take a Tub Bath (in 7 days.) May resume sexual activity in: 4-6 weeks Weight Bearing Status: Full weight bearing Lifting Restrictions: 20 pounds Dressing / Incision Call your doctor if your incision/area has: Continuous Slow Oozing, Sudden Increased Bleeding, Increased Pain/ Swelling, Increased Redness and Foul Smelling Discharge Call your doctor if you observe: Fever of 101 or Higher and Using more than 1 pad per hour Suture Line Care: Avoid Pulling/Pushing and Avoid Pinching/Bending Cleanse incision/area with: Soap & Water and Keep Dressing Clean & Dry Follow Up Care Please Follow Up With: Merline Santana DO When: Call [phone] to make an appointment for an incision check in 1-2 weeks. Test Results: Test results from this visit will be discussed in further detail at your follow-up appointment, if applicable. Discharge Plan Admission Admit Date/Time: 09/21/21 14:10 Primary Reason for Your Visit: section Attending Provider: Merline Santana Primary Care Provider: [facility] Physician,Kezia Primary Discharge Orders/Prescriptions Prescriptions: New ibuprofen 800 mg tablet 800 mg PO Q8H PRN (Reason: pain) 7 Days Qty: 30 RF: 0 Continued buprenorphine HCl 2 mg tablet, sublingual 12 mg SUBLINGUAL 3XD RF: 0 famotidine 20 mg tablet 20 mg PO DAILY RF: 0 ondansetron 4 mg tablet,disintegrating 4 mg PO Q4H PRN (Reason: nausea and vomiting) Qty: 60 RF: 2 Discontinued valacyclovir [Valtrex] 500 mg tablet 500 mg PO BID RF: 0 Referrals / Follow Up: Care Physician,Kezia Primary [Primary Care Provider] - Disposition Disposition (needs filled in before D/C Order can be placed): Home, Self Care
[2021-09-21] MEDS: Sodium Citrate/Citric Acid 30 ML UDC PO (17:27)
[2021-09-21 17:29] LABS: Amphetamine Urine VISTA NEGATIVE (<1000 ng/mL); Barbiturate Urine VISTA NEGATIVE (< 200 ng/mL); Benzodiazepine Urine VISTA NEGATIVE (< 200 ng/mL); Cocaine Urine VISTA NEGATIVE (< 300 ng/mL); Ecstacy Urine VISTA NEGATIVE (< 500 ng/mL); Methadone Urine VISTA NEGATIVE (< 300 ng/mL); PCP Urine VISTA NEGATIVE (< 25 ng/mL); THC Urine VISTA NEGATIVE (< 50 ng/mL); Vista UDS pH Range 7
[2021-09-21] MEDS: Cefazolin 2 GM in 0.9% Normal Saline 100 ML IV (17:38)
--- NOTE | 2021-09-21 18:01 | FALS_PTH ---
PATIENT: REJI LOPEZ LOC: [facility] U#:[id number] AGE/SX: 25/F ROOM: WP010 RE09/21/[address]: Dr. Merline Santana DO : 1995 BED: 1 DIS: 09/24/2021 SPEC #: [id number] RECD: 09/21/21 19:22 STATUS: ANETA MARANDA #: [id number] AARON: 09/21/21 18:[address]: Merline Santana DEPT: SURGICAL PATHOLOGY RECD BY: Kavita Alcaraz ENTERED: 09/22/21 07:41 SP TYPE: FALL TUBES OTHR DR: Kezia Primary Care Phys Tissues: Fallopian tube Procedures: Surgery Specimen Level II HEADER OPERATION: Tubal ligation PRE-OP DIAGNOSIS: Sterilization TISSUE SUBMITTED: Fallopian tubes MICROSCOPIC DIAGNOSIS Right fallopian tube, salpingectomy: Complete cross-section of fallopian tube with no pathologic change. Left fallopian tube, salpingectomy: Complete cross-section of fallopian tube with benign paratubal cysts. AM:christina 09/23/2021 MICROSCOPIC DESCRIPTION Slides are reviewed. GROSS DESCRIPTION Received in fixative is one container labeled with the patient's name and designated bilateral fallopian tubes, suture left. The specimen consists of bilateral fallopian tubes including fimbrial ends. Right fallopian tube measures 5.5 cm in length and 1 cm in diameter and left fallopian tube measures 5 cm in length and 1 cm in diameter. Sections reveal unremarkable cut surfaces. Family Nurse sections are submitted in two cassettes as follows: 1 ? right fallopian tube, 2 ? left fallopian tube. / RENE:christina 09/22/2021 TC:5 CPT: 37167 x2
[2021-09-21] MEDS: Bupivacaine Mpf 0.5% 30 ML VIAL (18:31)
[2021-09-21] MEDS: 0.9% Normal Saline (Pres. free 10 ML Vial (18:31)
[2021-09-21] MEDS: BUPIVACAINE LIPOSOME/PF 20 ML VIAL OPERA.SITE (18:31)
--- NOTE | 2021-09-21 18:32 | OP.PCM_ITS ---
Assessment & Plan (1) Contraception management: QUALIFIERS: Contraceptive encounter type: sterilization Qualified Code(s): Z30.2 - Encounter for sterilization COMMENT: katharine gutierrez BS. title 19 signed 08/18 (2) Genital herpes: QUALIFIERS: Herpes simplex infection site: vulvovaginitis Qualified Code(s): A60.04 - Herpesviral vulvovaginitis COMMENT: plan valtrex at 36 weeks (3) Bipolar 1 disorder: COMMENT: anxiety predominant. counseling center. no meds. (4) COVID-19 affecting , antepartum: COMMENT: baby ASA, growth scans starting at 28 weeks (5) History of : COMMENT: 04/16/18- breech presentation, preiovus . (6) Hepatitis C test positive: COMMENT: notify peds in delivery, MFM appt every 4 weeks. baseline labs- liver enz elevated. Growth US every 4 weeks with testing once a week starting at 32 weeks Titer positive, 06/23 FU growth nl, 08/18 growth nl (7) Supervision of high risk , antepartum: COMMENT: PRR CHIN: 09/26/21 PC: Joelle Vásquez(does not have custody of children but has visitation) FOB not involved (8) : QUALIFIERS: Weeks of gestation: 39 weeks Qualified Code(s): Z3A.39 - 39 weeks gestation of COMMENT: nipt- low risk and carrier-neg . Normal anatomy US. GBS neg (9) Tobacco abuse: COMMENT: encouraged cessation; about 1/2 ppd (10) History of drug abuse: COMMENT: heroin/meth exposure first trimester. on subutex. sees Dr Robles. been in recovery since mid february living at [facility]. Leaving [place] on 05/16/21 Maternal Data Information CHIN Calculator Estimated Delivery Date Method Current WG Current Estimate 09/26/21 LMP (Certain) 39w 2d Details Operative Information Date of Procedure: 09/21/21 Pre-Operative Diagnosis: 39 weeks 2 days, prior section, desires permanent sterilization Post-Operative Diagnosis: 39 weeks 2 days, prior section, desires permanent sterilization Indications for : Repeat Elective (and bilateral tubal ligation ) Classification: Scheduled Procedure Type: low transverse directional driller #1: Ayla Baker Type of Anesthesia: Spinal Anesthesiologist: Luis Mccall Antibiotic Given: Ancef 2 grams IV x1 Estimated Blood Loss: 500cc Findings Description of Procedure: The patient is a 25 y/o @ 39 weeks 2 days presented for repeat . Spinal anesthesia was placed without difficulty. Colbert catheter was placed. The patient was placed in the dorsal supine position with leftward tilt. Patient was prepped and draped in the normal sterile fashion. Pfannenstiel skin incision was made with the scalpel and carried through to the underlying layer of fascia with the scalpel. Fascia was nicked in the midline and the incision extended laterally. The rectus bellies were dissected off superiorly and inferiorly with out complication both sharply and bluntly. The peritoneum was entered digitally. The incision was stretched and a low transverse uterine incision was made with the scalpel. The infant's head was delivered atraumatically followed by the anterior and posterior shoulders without complication the rest of the infant delivered. The cord was clamped and cut and the infant was handed off to awaiting nurse. The placenta was delivered spontaneously immediately following and was noted to be intact and have a three- vessel cord. The uterus was exteriorized cleared of all clots and debris, and the incision was closed in a double layer closure using #1 Vicryl and #1 Monocryl. The ovaries and fallopian tubes were noted to be within normal limits. a bilateral salpingectomy was performed using the ligasure device by cauterizing and cutting the underlying mesosalpinx to the level of the level of the cornua. Both tubes were passed off for pathology analysis. The uterus was returned to the maternal abdomen and gutters were cleared of all clots and debris. The peritoneum was closed with 3-0 Monocryl in a running fashion. The muscles and Fascia was injected with 60cc of experel/marcaine solution. The Fascia was closed with 0 PDS in a running fashion. Subcutaneous tissue was copiously irrigated and the skin was closed with 3-0 Monocryl in a subcuticular fashion. Mepilex dressing was applied without complication. Patient was taken to recovery in stable condition. Presentation: Positive for Vertex Amniotic Fluid Description: Clear Placental Delivery Description: Expressed Placenta Disposition: [facility] Cord Vessel Description: 3 Vessels Cord Entanglement: Around neck x 1, loose A Gender: Male (1 minute): 8 (5 minute): 9 Delayed Cord Clamping: Yes Complications Risks of Surgery Discussed w/Patient: Bleeding, Anesthesia Risks, Infection, Need for Future C-Sections, Permanency, Failure Rate of 1 to 2%, Injury to surrounding structure(s) including bowel and bladder and Availability of other non-permanent control options Complications: none Multi Select Codes Urinary/Genital Urinary/Genital CPT Codes: 15483 C/S+TL and 17989 delivery+PP Care(ANJU) (with bilateral salpingectomy)
[2021-09-21] MEDS: Oxytocin 30 units/NS 500 ml 30 UNITS/500 ML IV.SOLN 167 UNITS IV (18:45)
[2021-09-21 19:23] LABS: Pathology Specimen OB SEE PATHOLOGY REPORT
[2021-09-21] MEDS: Ketorolac 30 MG/ML Syringe IV (19:37)
[2021-09-21] MEDS: Famotidine 20 MG Tablet PO (20:29)
[2021-09-21] MEDS: Buprenorphine HCl 2 MG TAB.SUBL 4 MG SL (22:06)
[2021-09-21] MEDS: Lactated Ringers 1,000 ML 100 ML IV (22:06)
[2021-09-22] VITALS (18 sets, daily range): BP systolic 104–124; BP diastolic 57–71; PULSE 70–101; RESP 16–20; TEMP 36.1–36.4; O2SAT 96–99
[2021-09-22] MEDS: Ketorolac 30 MG/ML Syringe IV ×3 (00:50→13:14)
[2021-09-22] MEDS: Acetaminophen 500 MG Tablet 1000 MG PO ×4 (03:26→21:16)
[2021-09-22 07:30] LABS: Hematocrit 29.8 % (37-47); Hemoglobin 9.6 g/dL (12.0-15.0); Mean Corp Hgb Conc 32.2 g/dL (32-36); Mean Corpuscular Hgb 28.1 pg (27.0-32.0); Mean Corpuscular Volume 87.1 fL (81-99); Mean Platelet Vol. 10.2 fl (6.2-12.0); Platelet Count 286 K/mm3 (150-450); RBC Distribution Width CV 13.8 % (11.6-14.6); RBC Distribution Width SD 43.7 fl (35.1-43.9); Red Blood Count 3.42 M/mm3 (4.2-5.4); White Blood Count 11.5 K/mm3 (4.4-11.0)
--- NOTE | 2021-09-22 07:47 | PN.OBGYN_ITS ---
Subjective Subjective Patient is attempting to get up from bed. She states that her pain is worse this morning and she appears anxious. Her speech is rapid and she is saying that she is worried about not being able to take care of the baby due to pain. Lochia is mild and pain is minimal. Objective Data Objective Data Vital Signs: Vital Signs Temp Pulse Resp BP Pulse Ox 97.5 F L 92 16 109/58 L 97 09/22/21 03:54 09/22/21 06:12 09/22/21 06:12 09/22/21 03:54 09/22/21 06:12 Oxygen Delivery Method Room Air Weight: 165 lb 2.02 oz Body Mass Index (BMI) 30.2 Intake & Output: Intake and Output for Last 24 Hours 09/20/21 09/21/21 09/22/21 23:59 23:59 23:59 Intake Total 1807.5 / 1807.5 1896.67 / 1896.67 Output Total 200 / 200 1900 / 1900 Balance 1607.5 / 1607.5 -3.33 / -3.33 Lab / Micro Data Result Diagrams: 09/22/21 06:10 Labs: Laboratory Results - last 24 hr 09/21/21 15:15: WBC 8.8, RBC 3.79 L, Hgb 10.5 L, Hct 32.6 L, MCV 86.0, MCH 27.7, MCHC 32.2, RDW Std Deviation 42.5, RDW Coeff of Donnell 13.6, Plt Count 381, MPV 10.1, Immature Gran % (Auto) 0.700, Neut % (Auto) 66.3, Lymph % (Auto) 24.5, M deonte % (Auto) 6.2, Eos % (Auto) 1.7, Baso % (Auto) 0.6, Absolute Neuts (auto) 5.8, Absolute Lymphs (auto) 2.15, Nucleated RBC % 0 09/21/21 15:15: Blood Type A POSITIVE, Antibody Screen NEGATIVE 09/21/21 15:15: Urine Opiates Screen NEGATIVE, Urine Methadone Screen NEGATIVE, Ur Barbiturates Screen NEGATIVE, Ur Phencyclidine Scrn NEGATIVE, Ur Amphetamines Screen NEGATIVE, MDMA (Ecstasy) Screen NEGATIVE, U Benzodiazepines Scrn NEGATIVE, Urine Cocaine Screen NEGATIVE, U Cannabinoids Screen NEGATIVE, Ur Drug Screen Comment 09/22/21 06:10: WBC 11.5 H, RBC 3.42 L, Hgb 9.6 L, Hct 29.8 L, MCV 87.1, MCH 28.1, MCHC 32.2, RDW Std Deviation 43.7, RDW Coeff of Donnell 13.8, Plt Count 286, MPV 10.2 Micro: Microbiology 09/21/21 15:15 Nasal Secretion SARS-CoV-2 Antigen (Rapid) - Final ROS Constitutional Constitutional: Reports systems reviewed and no addt'l complaints, except as documented Cardiovascular Cardiovascular: Denies chest pain, dizziness, dyspnea or irregular heart rhythm Respiratory/Chest Respiratory/Chest: Denies cough, pain on inspiration or shortness of breath at rest Gastrointestinal Gastrointestinal: Denies abdominal pain, nausea or vomiting Genitourinary Genitourinary: Denies burning urination Musculoskeletal Musculoskeletal: Denies muscle cramps, muscle spasms or muscle weakness Neurologic Neurologic: Denies confusion, dizziness, headache(s) or lack of coordination Psychiatric Psychiatric: Denies anxiety, behavioral changes or depression Physical Exam HEENT normocephalic Resp normal respiratory effort and normal air movement GI soft to palpation, non-tender and non-distended Rectal Exam: other Other Details: Incision is clean, dry, and intact no CVA tenderness Extremity normal to inspection General Extremity: edema bilateral (trace ) Assessment & Plan (1) Bipolar 1 disorder: COMMENT: anxiety predominant. counseling center. no meds. (2) Hepatitis C test positive: COMMENT: notify peds in delivery, MFM appt every 4 weeks. baseline labs- liver enz elevated. Growth US every 4 weeks with testing once a week starting at 32 weeks Titer positive, 06/23 FU growth nl, 08/18 growth nl (3) History of : COMMENT: 04/16/18- breech presentation, preiovus . (4) Supervision of high risk , antepartum: COMMENT: PRR CHIN: 09/26/21 PC: Joelle Vásquez(does not have custody of children but has visitation) FOB not involved (5) : QUALIFIERS: Weeks of gestation: 39 weeks Qualified Code(s): Z3A.39 - 39 weeks gestation of COMMENT: nipt- low risk and carrier-neg . Normal anatomy US. 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 on subutex. sees Dr Robles. been in recovery since mid february living at [facility]. Leaving [place] on 05/16/21 (8) Status post section: COMMENT: arin CORONADO PLAN: s/p LTCS PPD # 1 1. routine post care 2. breast feeding- support given 3. rh positive 4. rubella immune 5. continue subutex 4 mg tid and after 24 hrs from spinal, will suplement with oxyodone 5 mg q 4 hrs as needed. 6. pt will require a lot of support. social work consulted.
[2021-09-22] MEDS: Buprenorphine HCl 2 MG TAB.SUBL 4 MG SL ×3 (08:07→22:27)
[2021-09-22] MEDS: Senna/Docusate Sodium 1 Tablet PO (10:37)
[2021-09-22] MEDS: Famotidine 20 MG Tablet PO (10:37)
--- NOTE | 2021-09-22 10:42 | NURSING ---
Spoke with Dr. Davis in [facility] of pt requesting oxyir prior to 24 hours. Gave information about pt having hx of IV drug use and on subutex. Pt recieved duramorph and exphrel given in OR during . Per Dr. Susan irizarry to give oxyir.
[2021-09-22] MEDS: oxyCODONE 5 MG Tablet PO ×2 (10:44→23:42)
[2021-09-22] MEDS: 0.9% Saline Lock 10 ML Syringe IV (13:15)
[2021-09-22] MEDS: Ibuprofen 600 MG Tablet PO (19:30)
[2021-09-23] MEDS: Ibuprofen 600 MG Tablet PO ×2 (01:00→06:52)
[2021-09-23] MEDS: Acetaminophen 500 MG Tablet 1000 MG PO ×4 (03:06→21:25)
[2021-09-23 03:09] VITALS: BP 113/63; PULSE 83; RESP 18; TEMP 36.1; O2SAT 97
[2021-09-23] MEDS: Buprenorphine HCl 2 MG TAB.SUBL 4 MG SL ×3 (05:59→21:25)
[2021-09-23 08:00] VITALS: BP 119/65; PULSE 75; RESP 18; TEMP 36.4; O2SAT 99
--- NOTE | 2021-09-23 08:28 | PCM.PN.OB ---
Subjective Subjective pt is still very sleepy in bed. She states that her pain is worse than her last section. She is worried and mad that her mom has not been here to support her and she is mad and frustrated that she has so much pain that she can not take care of the baby as well as she wants to. She states that she yelled at the nurse that was taking care of her last night and she expresses some remorse. Objective Data Objective Data Vital Signs: Vital Signs Temp Pulse Resp BP Pulse Ox 97.0 F L 83 18 113/63 97 09/23/21 03:09 09/23/21 03:09 09/23/21 03:09 09/23/21 03:09 09/23/21 03:09 Oxygen Delivery Method Room Air Weight: 165 lb 2.02 oz Body Mass Index (BMI) 30.2 Intake & Output: Intake and Output for Last 24 Hours 09/21/21 09/22/21 09/23/21 23:59 23:59 23:59 Intake Total 1807.5 / 1807.5 1896.67 / 1896.67 Output Total 200 / 200 2400 / 2400 Balance 1607.5 / 1607.5 -503.33 / -503.33 Lab / Micro Data Result Diagrams: 09/22/21 06:10 Micro: Microbiology 09/21/21 15:15 Nasal Secretion SARS-CoV-2 Antigen (Rapid) - Final ROS Constitutional Constitutional: Reports systems reviewed and no addt'l complaints, except as documented Cardiovascular Cardiovascular: Denies chest pain, dizziness, dyspnea or irregular heart rhythm Respiratory/Chest Respiratory/Chest: Denies cough, pain on inspiration or shortness of breath at rest Gastrointestinal Gastrointestinal: Denies abdominal pain, nausea or vomiting Genitourinary Genitourinary: Denies burning urination Musculoskeletal Musculoskeletal: Denies muscle cramps, muscle spasms or muscle weakness Neurologic Neurologic: Denies confusion, dizziness, headache(s) or lack of coordination Psychiatric Psychiatric: Denies anxiety, behavioral changes or depression Physical Exam HEENT normocephalic Resp normal respiratory effort and normal air movement GI soft to palpation, non-tender and non-distended Rectal Exam: other Other Details: Incision is clean, dry, and intact no CVA tenderness Extremity normal to inspection General Extremity: edema bilateral (trace ) Assessment & Plan (1) Status post section: COMMENT: bb boy Hardy CORONADO (2) Contraception management: QUALIFIERS: Contraceptive encounter type: sterilization Qualified Code(s): Z30.2 - Encounter for sterilization COMMENT: katharine gutierrez BS. title 19 signed 08/18 PLAN: s/p LTCS PPD # 2 1. routine post care 2. breast feeding- support given 3. rh positive 4. rubella immune 5. hep c 6. h/o drug abuse- continue subutex. continue supportive care. will look into antidepressants today.
[2021-09-23] MEDS: Senna/Docusate Sodium 1 Tablet PO (09:28)
[2021-09-23] MEDS: Famotidine 20 MG Tablet PO (09:28)
[2021-09-23] MEDS: buPROPion (SR) 150 MG Tablet.SA PO (09:29)
[2021-09-23 13:42] VITALS: BP 118/58; PULSE 88; RESP 14; TEMP 36.2; O2SAT 98
[2021-09-23] MEDS: Ibuprofen 400 MG Tablet 800 MG PO ×2 (13:43→19:08)
--- NOTE | 2021-09-23 15:05 | CASEMGMT ---
Social Work Assessment Labor and Delivery Unit Patient Address: [address] [place] [address] Phone number: [phone] Date of Referral: 09/21/2021 Time of Referral: 2000 Referred By: Dr. Sotomayor Date of Intervention: 09/23/2021 Time of Intervention: Approximately 8543-4901 Reason for Referral: Maternal history of substance use, hepatitis C, recent of father of baby, maternal history of depression and bipolar disorder. Additionally, since initial referral placed, patient scored a 12 on the PHQ-9, falling into the moderate range of depression. History obtained from: Medical records including prior social work assessment, and mother of baby (MOB) Amina Lorenzo. Household composition: CAMMIE reports to have a trailer of her own, living in this residence for almost a month. Also in the home is the CAMMIE's oldest son Fahad Lorenzo. Patient's parent/guardian status: CAMMIE is a 25-year-old but female. The father of the baby (FOB) is reported as Sukhjinder Willingham, who reportedly about 2 weeks ago in the [facility]. MOB reports was not together with the FOB but they were involved, and were involved with each other for approximately 4 years, 3 of which the FOB was in usp (released in December 2020). MOB's is Luigi Lorenzo; not involved. MOB's minor children include: Fahad Lorenzo, born 02.16.2015 - Per MOB, in MOB's custody Joelle Lorenzo, born 04.16.2018- in the legal custody of CAMMIE's grandparents [place] baby Sukhjinder Willingham ., born 09/21/2021. Medical History: CAMMIE is 4, para 2 now 3 after delivering Sukhjinder. care started at 8 weeks, and regular thereafter. Notation in the care record, near the end of the indicated that CAMMIE was noncompliant and not showing up for appointments. However this was around the time that the FOB . Prior social work assessment indicates the MOB with a history of a 22-week loss. MOB with COVID during this . History of HSV and hepatitis C. Delivery of Sukhjinder occurred via section. weight 6 pounds 4 ounces. Apgars 8 and 9. Educational Status: Prior social work assessment indicates MOB with a GED. No reported concerns with reading, writing, or learning comprehension. 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 Not currently working. Received some support from her grandmother. Supplies: MOB reports to have some things for the baby but not a lot of items. Reports to have a car seat, bassinet which was purchased by the MOB's grandmother. Some clothing, diapers, and bottles. When asked for clarification about if MOB has at least 2 packs of diapers, the MOB reported not even that. MOB is formula feeding the baby; does not yet have any formula. Childcare/Caregiver(s): MOB is planning to be the primary caregiver. 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 Programs/Agencies Involved: MOB reports to have medical through job and family services and food card. Does not have WIC yet. Verbally agreed to help me grow referral. In the aftercare program at [facility] daisy Bates for counseling, and on MAT program with Dr. Robles. Children Services/Legal Issues: MOB denies any current children services involvement and reports past involvement was vaguely. Denies that children services ever removed the older children from the home. And reports vaguely means that children services have been out in the past, for short period of time. MOB is on felony probation with [employer], stemming from charges 4 years ago. Reports is to start the drug diversion program in the near future. Behavioral Health Issues: Mental Health History: CAMMIE has history of depression diagnosed at the age of 13, on and off medication and in counseling throughout the years. Current record indicates a history of bipolar disorder. Prior social work assessment, the MOB denied any suicidal ideation, plans, intent, or attempts nor any thoughts of harm to others. MOB denies any SI/HI during this assessment. MOB does have a lot going on right now, and depression scale is in the moderate range. MOB reports was just started on Wellbutrin during this admission. Noted prescription of Vistaril for anxiety during this . Substance Use History: CAMMIE has a long history of substance use issues, with first episode of treatment at the age of 16 at [facility]. MOB has been in several Subutex programs throughout the years, most recently with Dr. Robles since February 2021. MOB reports in February 2021 relapsed on heroin and cocaine, leading to admission to the [facility] from February 2021 until May 2021. Dominique was discharged, and denies leaving the program prior to being ready. CAMMIE elliott has been working her Subutex program, and taking medication as prescribed until relapse in methamphetamines about 2 weeks ago, shortly after the FOB . CAMMIE elliott was around people who were putting drugs in MOB's face, which MOB reported was not an excuse but did end up relapsing. Denies other illicit drug use during this . Family History: Prior social work assessment indicates that the MOB with a brother who around 2017 drinking and driving, another brother with addiction, and MOB's parents also with history of substance use issues. Drug Screens: Maternal drug screens negative on 03/10/2021, 06/29/2021 and 09/21/2021. Positive on 09/15/2021 for amphetamines. 's urine drug screen is negative except for buprenorphine. Meconium drug screen is pending. RASHEEDA: Withdrawal symptoms for the baby are being monitored via the eat, sleep, console method for a minimum of 5 to 7 days. Family/Social Stressors: Multiple changes in a very short amount of time for the MOB. Relapse on substances in February 2021 with subsequent inpatient treatment, discharging to the community and reportedly sleeping on the MOB's mother's couch until about a month ago when MOB got her own place to live. FOB about 2 weeks ago and subsequent relapse for the MOB on methamphetamines. Maternal mental health history with depression in the moderate range of depression. Limited finances. Limited infant supplies in place. Limited support system as evidenced by the MOB's mother being present for delivery, and then not returning again; reports by by nursing that MOB's father came to the hospital very early this morning and stayed for just a short time before leaving, then the MOB's grandmother visited once today, 09/23/2021. Support Systems: MOB's mother Ary Lorenzo was to be primary support person during the hospital stay, but has only been present at time of delivery so far. MOB's grandparents are support. Connected with probation and outpatient substance use treatment in the community. ASSESSMENT: Met with the MOB and MOB's grandmother Meli Horne in room, introducing to self and social work role. MOB immediately asked is everything okay? Educated MOB that here for initial assessment. Discussed needing to talk with MOB privately, which MOB initially indicated was okay for the grandmother to say. Educated that we will be asking about some sensitive topics so MOB will have to let this advertising copywriter know if not okay to discuss with the grandmother present. Also let the MOB know, that social services aide does need to review depression screen privately. Grandmother offered to go to the cafeteria to allow for private discussion, and the MOB agreed. During discussion with the MOB, the MOB reports the grandmother is a good support and knows mostly everything except for the fact that MOB relapsed a couple of weeks ago on meth. MOB prefers the topic of methamphetamines and relapse not be discussed in front of the MOB's grandmother. MOB was cooperative with this advertising copywriter, though appearing quite tired, even acknowledging to the MOB upon this advertising copywriter entering the room that the MOB appeared tired. MOB reports got some sleep. MOB's eyelids continued to close and open, as if nodding off, with words slurring to intelligible sentences at times. Offered to come back later, or if MOB was awake enough to continue. MOB reported could talk but would be keeping eyes closed if okay with this advertising copywriter. Explained that okay to talk as long as MOB can remain awake. MOB continued to doze on and off, and appeared to get more tired as evidenced by head falling to the side and this advertising copywriter being able to hear MOB's breathing. MOB holding the baby, who was sleeping. Initially MOB changed baby's position and told this advertising copywriter this new position felt more secure in case MOB did doze off. This advertising copywriter offered to place baby in crib, but MOB declined reporting that was awake enough. When MOB's head started to fall to the side, this advertising copywriter went to bedside and asked MOB if okay to place baby in crib. MOB stated if you want to. Voiced belief that may be safer for baby and easier for MOB to rest. Placed baby in crib. MOB woke up more then, opened eyes and asked this advertising copywriter to put angelita in the crib and move crib to MOB's bedside. Completed requested task. Baby remained asleep. When this advertising copywriter was close to MOB's face, when picking the baby up did note MOB's pupils appearing small. This advertising copywriter let MOB know of the need to notify children services due to infant exposure in utero, and educated that it is helpful to verify with prescribing provider adherence in treatment when reporting to children services. MOB agreed to sign release of information. Instructed MOB to wake up and explain back to this advertising copywriter the reason for release of information, which MOB was able to appropriately do. At this time, MOB sat up and started chewing ice. MOB voiced worry about children services taking baby from MOB and that MOB would flip out of this happens and would need to be put in a psych claire, as well as that I am all he has. Educated MOB that likely with the Meth relapse a case would be opened, but that children services would be talking with MOB to formulate a plan. Discussed safety plan as something which could be discussed. MOB immediately and forcefully stated that would not agree for baby to go anywhere without the baby, nor could MOB go anyone's home due to felony probation. Explored whether MOB could have someone stay with MOB, which MOB reports the account officer would have to agree to. Let MOB know that this advertising copywriter would be back at a later time to talk again and bring some resources. This advertising copywriter really unable to engage in a solid discussion about depression or willingness for aftercare due to MOB's sleepiness. The only time MOB really woke up was to discuss children services and the release to [facility]. Let MOB know that staff at [facility] want to provide support to MOB, and acknowledged that extended stays in the hospital can be hard. Did offer emotional support in relation to the many changes MOB has had including recent loss. Note, MOB did make comment during assessment about 12mg of Subutex not really being enough for pain control, due to long duration of being on this medication previously. MOB reports the dosage was just recently increased to 12mg a day in preparation for the . Safe Plan of Care for infant related to substance use: Continue with current MAT program in the community, including aftercare counseling. PLAN: Social work will continue to follow and assist this family during hospital stay. Plan to make a help me grow referral. Plan for children services referral. Plan to further discuss referral for mental health services with the MOB, as well as provide some resource information for home going. -DARRYL Long, ROPE CLEANER *This note was generated with [employer] dictation software. It may contain incorrect words, spelling, and punctuation that were not noted in review of the chart prior to signing*
--- NOTE | 2021-09-23 16:39 | CASEMGMT ---
Social Work Labor and Delivery Unit Called [facility] and spoke to Dr. Robles's nurse Keisha. Verified that patient/mother of baby (MOB) has been adherent to treatment, recent increase of Subutex to 12m at day (4mg three times a day). [facility] is aware of MOB recent relapse, working with MOB's landing signal officer to get MOB into the drug diversion program for more support and accountability. Discussed additional drug screen prior to MOB's discharge as a patient from hospital. This typewriter assembler collaborated with RN Kera Marley about discussion with [facility] and additional drug screen requested by MAT program prior to discharge. Called [facility] ([facility]) and spoke with Gina Carvalho in the intake department ([phone], extension [phone]). Referral due to substance exposed infant in utero to Subutex and methamphetamine. Other concerns/risk factors reported including: limited finances, limited support system, limited baby supplies, just moving about a month ago, of the father of baby about 2 weeks ago, maternal mental health. Brief maternal and histories provided. [facility] Jaun Inman and Vee Pennington to unit to meet with MOB. This typewriter assembler presented to MOB's room to update. Baby in bedside crib sleeping. MOB appearing sleepy with glazed looking eyes, but eyes wide open. Informed MOB of [facility] to unit to meet with MOB. MOB asked if [facility] is coming in to take the baby. Explained to MOB that [facility] is here to visit, ask questions, and work on a plan. This typewriter assembler noted that blanket starting to cover baby's face, went to the crib to look at baby and verify. MOB asked what are you doing to him? sounding suspicious. Educated to concern about blanket. [place] had in fact come up over nose (so covering half of baby's face), so this typewriter assembler pulled blanket down from the face. MOB sitting in bed and eating ice. Asked MOB if MOB awake enough to talk, and MOB stated I am now. Asked MOB if would like this typewriter assembler to be present or to talk to [facility] alone. MOB stated I don't give a fuck. Met with [facility] workers and updated, clarified referral information and updated that [facility] would like to be called by [facility]. [facility] to MOB's room alone to talk. Plan: [facility] involved and will also be assisting family for a safe plan for baby at discharge. Will make a [facility] referral. Plan to follow up with MOB on 09.26.2021 about mental health services and community resource information. -GERRI Long, IMMIGRATION OFFICER
--- NOTE | 2021-09-23 18:46 | NURSING ---
Pt sleepy at times during the day but awakens and is appropriate with this RN. Social work concerned about pt and Dr. Robles suggests possibly repeating a UDS prior to discharge. Discussed plan of care with social service and Dr. Sotomayor, Dr. Sotomayor does not want to repeat a UDS at this time and will talk with social service and Dr. Robles tomorrow if needed for plan of care.
[2021-09-23 20:10] VITALS: BP 114/66; PULSE 87; RESP 16; TEMP 36.3; O2SAT 98
[2021-09-23] MEDS: Gabapentin 300 MG Capsule PO (20:40)
[2021-09-23] MEDS: Polyethylene Glycol 3350 17 GM PACKET PO (21:25)
[2021-09-24] MEDS: Ibuprofen 400 MG Tablet 800 MG PO ×3 (01:13→13:04)
[2021-09-24 01:14] VITALS: BP 109/60; PULSE 92; RESP 14; TEMP 36.2
[2021-09-24] MEDS: Acetaminophen 500 MG Tablet 1000 MG PO ×3 (03:19→16:14)
[2021-09-24] MEDS: Buprenorphine HCl 2 MG TAB.SUBL 4 MG SL ×2 (06:27→13:51)
[2021-09-24] MEDS: Senna/Docusate Sodium 1 Tablet PO (09:41)
[2021-09-24 09:42] VITALS: BP 107/74; PULSE 97; RESP 18; TEMP 36.1
[2021-09-24] MEDS: buPROPion (SR) 150 MG Tablet.SA PO (10:04)
[2021-09-24] MEDS: Famotidine 20 MG Tablet PO (10:04)
[2021-09-24] MEDS: Gabapentin 300 MG Capsule PO (10:04)
[2021-09-24] MEDS: Bisacodyl 10 MG Suppository RC (10:10)
[2021-09-24 15:51] VITALS: BP 110/65; PULSE 91; RESP 18; TEMP 36.1
--- NOTE | 2021-09-30 12:49 | CASEMGMT ---
Social Work Labor and Delivery unit Patient/mother of baby was discharged and placed on hotel status on the labor and delivery unit while infant remained in the hospital receiving RASHEEDA monitoring via the eat, sleep, console method. Refer to infant's chart, linked to MOB's delivery record, for further details about social work interactions during the 's extended stay. In summary, children services will be following with this family in the community. MOB is aware of involvement, agreeable to plan for to discharge home with MOB with children services to follow-up on 09/29/2021. Help me grow referral submitted today, 09/30/2021 through the [facility] assisted care web-based referral system. MOB was provided with [facility] resource list and informational packet on mood and anxiety disorders. MOB reported plan to continue working with electrical engineering drafting officer, drug diversion program through the courts, MAT treatment provider through [facility], grief counseling that is reportedly supposed to start as arranged through electrical engineering drafting officer, and plans to reestablish with the counseling center. No other services requested or indicated. -ZAY Long, ADMITTING COUNSELOR. *This note was generated with [employer] dictation software. It may contain incorrect words, spelling, and punctuation that were not noted in review of the chart prior to signing*
== END 2021-09-24 16:15 | disposition home or self-care (01) | DRG 539 ==
PROVIDERS: Admitting Provider Obstetrics & Gynecology; Visit Provider Obstetrics & Gynecology
PROC: 10D00Z1 Extraction of Products of Conception, Low, Open Approach (ICD-10-PCS; CPT 59514; principal; 2021-09-21 15:45)
DX: O34.219 Maternal care for unspecified type scar from previous cesarean delivery (principal); O98.32 Other infections with a predominantly sexual mode of transmission complicating childbirth; F31.9 Bipolar disorder, unspecified; F17.210 Nicotine dependence, cigarettes, uncomplicated; A60.04 Herpesviral vulvovaginitis; B19.20 Unspecified viral hepatitis C without hepatic coma; O99.334 Smoking (tobacco) complicating childbirth; Z37.0 Single live birth; O99.344 Other mental disorders complicating childbirth; Z79.899 Other long term (current) drug therapy; Z3A.39 39 weeks gestation of pregnancy; Z30.2 Encounter for sterilization; O98.42 Viral hepatitis complicating childbirth; Z20.822 Contact with and (suspected) exposure to COVID-19
CPT/HCPCS: 59025; 59050; 76815; 80307; 85025; 85027; 86850; 86900; 86901; 87426; 88302; 99218; 99406; J7120; A4216; G0378; J3490

== ENCOUNTER 2021-10-31 18:47 | Emergency (ER) | payer MEDICAID, SELFPAY ==
[2021-10-31 18:48] VITALS: BP 105/69; PULSE 70; RESP 18; TEMP 36.3; O2SAT 100; BMI 26.8
--- NOTE | 2021-10-31 19:32 | EDS_ITS ---
HPI History of Present Illness Chief Complaint: Abd Pain Informant: patient Narrative Narrative: Patient was at urgent care with her children. She had sudden onset of right upper quadrant pain that made her double over. She felt a little nauseated. She felt hot and flushed. It lasted for about 10 minutes and now it is almost gone. She did not have chest pain or dyspnea. The pain did radiate a little bit toward her back. She has never had kidney stones. No urinary symptoms. She did eat some chicken cheese poppers before this. Evidently she has a history of biliary sludge and states that everyone in her family get the gallbladder out early. No history of DVT or PE. She did just deliver and have a a month ago but she has not been having any problems with it. That is healing well. She had no pain below the umbilicus. No dyspnea cough hemoptysis or chest pain. The symptoms went away by themselves. She states she did not want to come in here for evaluation but urgent care encouraged her to do so. [facility] Medical History Alcohol abuse Anemia Bone fracture Depression affecting H/O emotional problems Hepatitis C test positive Herpes History of drug abuse Hives Positive urine drug screen complicated by subutex maintenance, antepartum Tobacco abuse UTI (urinary tract infection) Home Medications buprenorphine HCl 2 mg sublingual tablet 12 mg sublingual DAILY Hx drug use 06/02/21 [History Last Taken 09/21/21] Allergy/AdvReac Type Severity Reaction Status Date / Time clindamycin Allergy Hives Verified 10/31/21 18:51 diphenhydramine HCl Allergy Hives Verified 10/31/21 18:51 [From Benadryl] Penicillins Allergy Hives Verified 10/31/21 18:51 Family History Other Alcoholism Anxiety Arthritis Cancer Cervical cancer Depression Diabetes Mental disorder Ovarian cancer Psychiatric care Seizures Thyroid disorder Surgical History History of Social History household members: family housing: house number of children: 2 Smoking Status: Current every day smoker tobacco type: cigarettes alcohol intake: former substance use type: former substance user Date of last use: 05/2020 what type of physical activity do you participate in: none do you feel safe at home: Yes ROS ROS ED Constitutional Constitutional ED: Denies chills or fever(s) Eyes Eyes: Denies change in vision ENT ENT ED: Denies rhinorrhea or sore throat Cardiovascular Cardiovascular: Denies chest pain or palpitations Respiratory/Chest Respiratory/Chest: Denies cough, dyspnea or dyspnea on exertion Gastrointestinal Gastrointestinal: Reports abdominal pain and nausea; Denies constipation, diarrhea, melena or vomiting Genitourinary Genitourinary ED: Denies dysuria, hematuria or urinary frequency Integumentary Denies abscess or rash Neurologic Neurologic: Denies paresthesias or weakness Endocrine Endocrinology: Denies polydipsia or polyuria Hematologic/Lymphatic Hematologic/Lymphatic: Denies easy bleeding Allergic/Immunologic Allergic/Immunologic ED: Denies urticaria EXAM Physical Exam Const Vital Signs: 10/31/21 18:48 Temperature 97.3 F L Temperature Source Temporal Pulse Rate 70 Respiratory Rate 18 Blood Pressure 105/69 Blood Pressure Mean 81 Pulse Ox 100 Oxygen Delivery Method Room Air Positive well nourished Constitutional Narrative: Patient is talking comfortably in bed at this time. No acute discomfort. General Appearance ED: NAD; Negative for pallor HEENT Reports moist mucous membranes Eyes General Eye ED: Negative for pale conjunctiva or scleral icterus Chest Wall inspection of chest normal and palpation of chest normal Chest Narrative: No pain with a deep breath. Resp normal respiratory effort and clear to auscultation bilaterally Auscultation: Negative for rales, rhonchi or wheezes Cardio regular rate, regular rhythm and no murmurs GI normal to inspection, nondistended, normoactive bowel sounds GI Narrative: Patient states if I pressed on the right upper quadrant she feels just a little bit but is not really painful anymore. No rebound or guarding. No epigastric tenderness. No CVA tenderness. No lower abdominal tenderness. scar is healing well. It is completely closed without drainage or erythema. Back/Spine no CVA tenderness Extremity normal to inspection Neuro Sensorium / Orientation: alert Psych mental status grossly normal Skin Skin Narrative: No rashes or lesions. General Skin Exam: Negative for jaundice or pallor MDM MDM MDM Narrative Medical decision making narrative: Patient has normal CBC. There is minimal anemia. Electrolytes are normal. Liver function tests are overall within normal limits. Lipase is good. Urine shows 5-10 white cells but it is clear with negative nitrites and she has no UTI symptoms. There are not significant red cells. Patient still feels well. We rechecked her. Her abdomen is benign. My suspicion is that this may have been some biliary colic that occurred after eating deep-fried chicken cheese jalapeno poppers. She states they were really greasy. We discussed avoiding this food. We discussed that if she has further symptoms, fever, pain, vomiting or other concerns she should return. Lab Data Attestation: I reviewed the patient's lab results. Labs: Laboratory Results - last 24 hr 10/31/21 10/31/21 10/31/21 19:40 19:40 19:45 WBC 8.3 RBC 4.09 L Hgb 11.4 L Hct 35.2 L MCV 86.1 MCH 27.9 MCHC 32.4 RDW Std Deviation 44.8 H RDW Coeff of Donnell 14.2 Plt Count 305 MPV 9.5 Immature Gran % (Auto) 0.200 Neut % (Auto) 52.5 Lymph % (Auto) 34.7 [place] % (Auto) 5.3 Eos % (Auto) 6.6 H Baso % (Auto) 0.7 Absolute Neuts (auto) 4.4 Absolute Lymphs (auto) 2.89 Nucleated RBC % 0 Sodium 138 Potassium 3.9 Chloride 107 Carbon Dioxide 23.0 Anion Gap 8 BUN 18 Creatinine 0.92 Estim Creat Clear Calc 73.29 Est GFR (MDRD) Af Amer 95 Est GFR (MDRD) Non-Af 79 BUN/Creatinine Ratio 19.6 Glucose 91 Calcium 9.2 Total Bilirubin 0.30 AST 64 H ALT 115 H Alkaline Phosphatase 92 Total Protein 8.2 Albumin 3.8 Globulin 4.4 H Albumin/Globulin Ratio 0.9 Lipase 223 Urine Color Yellow Urine Clarity Clear Urine pH 6.0 Ur Specific [place] 1.025 Urine Protein Negative Urine Glucose (UA) Normal Urine Ketones Negative Urine Occult Blood 50 H Urine Nitrite Negative Urine Bilirubin Negative Urine Urobilinogen Normal Ur Leukocyte Esterase 100 H Urine RBC 0-5 SEEN Urine WBC 5-10 SEEN Ur Squamous Epith Cells 0-5 SEEN Urine Bacteria 1+ Urine Mucus 0 SEEN Discharge Plan Triage Chief Complaint: Abd Pain ED Provider: Raymond Smiley Dx/Rx/DC Orders Clinical Impression: Right upper quadrant abdominal pain Instructions: ED Abdominal Pain Unkn Cause Fem Prescriptions: No Action buprenorphine HCl 2 mg tablet, sublingual 12 mg SUBLINGUAL DAILY Primary Care Provider: Care Physician,No Primary Referrals: Cary Arredondo MD [STAFF PHYSICIAN] - 3-5 Days if not improving Care Physician,No Primary [Primary Care Provider] - Disposition Disposition: Home, Self Care
[2021-10-31 19:54] LABS: Mucous, Urine 0 SEEN /hpf (<or=2+)
[2021-10-31 19:58] LABS: Absolute Lymphocyte Count 2.89 X10^3/uL (0.83-4.51); Absolute Neutrophil Count 4.4 X10^3/uL (2.0-7.7); Basophil# 0.06 X10^3/uL; Basophil% 0.7 % (0-1); Eosinophil# 0.55 X10^3/uL; Eosinophils% 6.6 % (0-5); Hematocrit 35.2 % (37-47); Hemoglobin 11.4 g/dL (12.0-15.0); Lymphocyte # 2.89 X10^3/ul (0.83-4.51); Lymphocyte % 34.7 % (19-41); Mean Corp Hgb Conc 32.4 g/dL (32-36); Mean Corpuscular Hgb 27.9 pg (27.0-32.0); Mean Corpuscular Volume 86.1 fL (81-99); Mean Platelet Vol. 9.5 fl (6.2-12.0); Monocyte# 0.44 X10^3/uL; Monocyte% 5.3 % (0-10); NRBC Flagged by Analyzer 0 % (0-5); Neutrophil # 4.37 X10^3/uL (2.7-7.7); Neutrophil % 52.5 % (47-70); Platelet Count 305 K/mm3 (150-450); RBC Distribution Width CV 14.2 % (11.6-14.6); RBC Distribution Width SD 44.8 fl (35.1-43.9); Red Blood Count 4.09 M/mm3 (4.2-5.4); White Blood Count 8.3 K/mm3 (4.4-11.0)
[2021-10-31 20:02] LABS: Color, Urine Yellow (Yellow); Glucose, Dipstick Normal (Normal); Ketone-Dipstick Negative (Negative); Leukocyte Esterase-Dipstick 100 /ul (Negative); Nitrite-Dipstick Negative (Negative); Occult Blood-Urine 50 /ul (Negative); Protein-Dipstick Negative (Negative); Specific Gravity, Urine 1.025 (1.002-1.030); Urine Bilirubin Dipstick Negative (Negative); Urine Clarity Clear (Clear); Urine Urobilinogen Normal (Normal)
[2021-10-31 20:29] LABS: ALB/GLOB Ratio 0.9 RATIO (0.9-2.4); AST(SGOT) 64 U/L (15-37); Alanine Aminotransfer ALT/SGPT 115 U/L (13-56); Albumin, Serum 3.8 g/dL (3.2-5.0); Alkaline Phosphatase 92 U/L (45-117); Anion Gap 8 (5-15); BUN 18 mg/dL (7-18); BUN/Creat Ratio 19.6 RATIO (10-20); Calcium,Total 9.2 mg/dL (8.5-10.1); Chloride 107 mmol/L (98-107); Creatinine, Serum 0.92 mg/dL (0.55-1.02); EST Glomerular Filtration Rate 79 mL/min (>60); Est Glom Filt Rate - Afr Amer 95 mL/min (>60); Estimated Creatinine Clearance 73.29 ml/min; Globulin 4.4 g/dL (2.2-4.2); Glucose 91 mg/dL (74-106); Lipase 223 U/L (73-393); Potassium 3.9 mmol/L (3.5-5.1); Protein, Total 8.2 g/dL (6.4-8.2); Sodium Level 138 mmol/L (136-145)
[2021-10-31 20:41] LABS: Bacteria 1+ /hpf (None Seen); Red Blood Cells-Urine 0-5 SEEN /hpf (0-5); Squamous Epithelial Cells - UA 0-5 SEEN /hpf (5-10); White Blood Cells 5-10 SEEN /hpf (0-5)
[2021-10-31 21:23] VITALS: BP 113/74; PULSE 78; RESP 15; O2SAT 98
== END 2021-10-31 21:24 | disposition home or self-care (01) ==
PROVIDERS: Emergency Provider Emergency Medicine; Visit Provider Emergency Medicine
DX: O99.893 Other specified diseases and conditions complicating puerperium (principal); R10.11 Right upper quadrant pain; M54.9 Dorsalgia, unspecified; O90.81 Anemia of the puerperium; R11.0 Nausea; O99.335 Smoking (tobacco) complicating the puerperium; F17.210 Nicotine dependence, cigarettes, uncomplicated
CPT/HCPCS: 80053; 81001; 83690; 85025; 99283; A4216

== ENCOUNTER → 2022-01-30 | Outpatient (CLI) | payer MEDICAID, SELFPAY ==
[2022-01-30 11:30] LABS: Absolute Lymphocyte Count 2.08 X10^3/uL (0.83-4.51); Absolute Neutrophil Count 2.3 X10^3/uL (2.0-7.7); Basophil# 0.03 X10^3/uL; Basophil% 0.6 % (0-1); Eosinophil# 0.32 X10^3/uL; Eosinophils% 6.5 % (0-5); Hemoglobin 11.1 g/dL (12.0-15.0); Lymphocyte # 2.08 X10^3/ul (0.83-4.51); Lymphocyte % 42.4 % (19-41); Mean Corp Hgb Conc 33.6 g/dL (32-36); Mean Corpuscular Hgb 28.6 pg (27.0-32.0); Mean Corpuscular Volume 85.1 fL (81-99); Mean Platelet Vol. 9.2 fl (6.2-12.0); Monocyte# 0.23 X10^3/uL; Monocyte% 4.7 % (0-10); NRBC Flagged by Analyzer 0 % (0-5); Neutrophil # 2.25 X10^3/uL (2.7-7.7); Neutrophil % 45.8 % (47-70); Platelet Count 202 K/mm3 (150-450); RBC Distribution Width CV 13.1 % (11.6-14.6); RBC Distribution Width SD 40.1 fl (35.1-43.9); Red Blood Count 3.88 M/mm3 (4.2-5.4); White Blood Count 4.9 K/mm3 (4.4-11.0)
[2022-01-30 11:58] LABS: Amphetamine Urine VISTA NEGATIVE (<1000 ng/mL); Barbiturate Urine VISTA NEGATIVE (< 200 ng/mL); Benzodiazepine Urine VISTA NEGATIVE (< 200 ng/mL); Cocaine Urine VISTA NEGATIVE (< 300 ng/mL); Ecstacy Urine VISTA NEGATIVE (< 500 ng/mL); Methadone Urine VISTA NEGATIVE (< 300 ng/mL); PCP Urine VISTA NEGATIVE (< 25 ng/mL); T3 Total - Triiodothyronine 1.45 ng/mL (0.6-1.81); THC Urine VISTA NEGATIVE (< 50 ng/mL); Vista UDS pH Range 5
[2022-01-30 12:04] LABS: AST(SGOT) 32 U/L (15-37); Alanine Aminotransfer ALT/SGPT 51 U/L (13-56); Albumin, Serum 3.8 g/dL (3.2-5.0); Alkaline Phosphatase 57 U/L (45-117); Anion Gap 8 (5-15); BUN 10 mg/dL (7-18); BUN/Creat Ratio 14.3 RATIO (10-20); CPK Total, Creatine Kinase 181 U/L (26-192); Calcium,Total 9.1 mg/dL (8.5-10.1); Chloride 104 mmol/L (98-107); Cholesterol 151 mg/dL (200); EST Glomerular Filtration Rate 107 mL/min (>60); Est Glom Filt Rate - Afr Amer 130 mL/min (>60); Free T3 3.2 pg/mL (2.18-3.98); Globulin 3.9 g/dL (2.2-4.2); Glucose 105 mg/dL (74-106); High Density Lipoprotein 44 mg/dL; Protein, Total 7.7 g/dL (6.4-8.2); Sodium Level 138 mmol/L (136-145); T4 Free Direct 1.14 ng/dL (0.76-1.46); Thyroid Stim Hormone (TSH) 0.55 uIU/mL (0.358-3.74); Triglycerides 121 mg/dL; Very Low Density Lipoprotein 24 mg/dL (5-40)
== END | disposition home or self-care (01) ==
DX: F11.23 Opioid dependence with withdrawal (principal); F31.62 Bipolar disorder, current episode mixed, moderate; F41.1 Generalized anxiety disorder; E78.5 Hyperlipidemia, unspecified; E03.9 Hypothyroidism, unspecified; Z51.81 Encounter for therapeutic drug level monitoring
CPT/HCPCS: 36415; 80053; 80061; 80307; 82550; 84436; 84439; 84443; 84480; 84481; 85025

== ENCOUNTER → 2022-02-10 | Outpatient (CLI) | payer MEDICAID, SELFPAY ==
--- NOTE | 2022-02-10 10:08 | US_ITS ---
STUDY: ABDOMINAL ULTRASOUND - RIGHT UPPER QUADRANT REASON FOR VISIT: Female, 26 years old HEP C TECHNIQUE: Ultrasound evaluation of the right upper quadrant was performed with real-time and static workman-scale imaging. TECHNICAL QUALITY: Adequate. COMPARISON: Comparison is made with prior examination dated 05/17/2019. FINDINGS: Liver: The liver is slightly enlarged and measures 17.5 cm. There is normal echogenicity of the liver. The bile ducts are within normal limits. There is hepatic color flow. The direction of portal flow is hepatopetal. There is no demonstrated mass lesion. Gallbladder: Normal distended gallbladder. The gallbladder wall measures 2.0 mm. There is a negative sonographic Graham''s sign. There is no pericholecystic fluid. Contracted stone filled gallbladder. Common Bile Duct (C.B.D.): The common bile duct measures 6 mm. Pancreas: Normal size of the head, body and tail of the pancreas. There is normal echogenicity of the pancreas. There is no demonstrated pancreatic mass or cyst. Right Kidney: Normal size of the right kidney. The right kidney measures 11 cm x 5.4 cm x 3.9 cm. Normal renal cortex. The right cortex measures 1.0 cm. There is no demonstrated renal mass or cyst. There is no right hydronephrosis. US/Abdomen Limited IMPRESSION: Mild hepatomegaly. Contracted stone filled gallbladder. Electronically Signed: Wilberto Sylvester MD at 12:16 EDT ,
--- NOTE | 2022-02-10 10:08 | US_ITS ---
STUDY: ABDOMINAL ULTRASOUND - ELASTOGRAPHY REASON FOR VISIT: Female, 26 years old. Hepatitis C. TECHNIQUE: Liver stiffness measurements were obtained on a [employer] RS 85 ultrasound machine using a CA 1-7 probe following the SRU guidelines. 3 measurements were obtained using a 2-D-SWE method. The QR/M was 12% suggesting a quality data set. TECHNICAL QUALITY: Adequate. COMPARISON: Comparison is made with prior study done earlier today. FINDINGS: Liver: There is no demonstrated mass lesion. Median liver stiffness measured 5.3 kPa. US/Elastography Parenchyma/Organ IMPRESSION: Liver stiffness measures 5.3 kPa compatible with F0-F1 (Normal to mild liver fibrosis) Metavir score. Electronically Signed: iWlberto Sylvester MD at 12:18 EDT ,
== END | disposition home or self-care (01) ==
LOC: US 10:06
PROVIDERS: Referring Provider Family Medicine; Visit Provider Family Medicine
DX: B18.2 Chronic viral hepatitis C (principal)
CPT/HCPCS: 76705; 76981

== ENCOUNTER 2023-08-16 20:04 | Emergency (ER) | payer MEDICAID, SELFPAY ==
[2023-08-16 20:05] VITALS: BP 101/67; PULSE 65; RESP 18; TEMP 35.9; O2SAT 97; BMI 26.6
--- NOTE | 2023-08-16 20:22 | ED.RN ---
spoke with ED provider to order CT/NG test while in waiting room.
[2023-08-16 20:23] LABS: Bacteria 0 SEEN /hpf (None Seen); Mucous, Urine 0 SEEN /hpf (<or=2+); Red Blood Cells-Urine 0 SEEN /hpf (0-5); Squamous Epithelial Cells - UA 0 SEEN /hpf (5-10)
[2023-08-16 20:24] LABS: Color, Urine Yellow (Yellow); Glucose, Dipstick Normal (Normal); Ketone-Dipstick Negative (Negative); Leukocyte Esterase-Dipstick Negative /ul (Negative); Nitrite-Dipstick Negative (Negative); Occult Blood-Urine Negative /ul (Negative); Protein-Dipstick Negative (Negative); Specific Gravity, Urine 1.015 (1.002-1.030); Urine Bilirubin Dipstick Negative (Negative); Urine Clarity Sl. Cloudy (Clear); Urine Urobilinogen Normal (Normal)
[2023-08-16 20:30] LABS: Amorphous Sediment 1+; White Blood Cells 0-5 SEEN /hpf (0-5)
== END 2023-08-16 21:55 | disposition left against medical advice (07) ==
LOC: ED 21:58
DX: N89.8 Other specified noninflammatory disorders of vagina (principal); Z53.21 Procedure and treatment not carried out due to patient leaving prior to being seen by health care provider
CPT/HCPCS: 81001; 87491; 87591

== ENCOUNTER → 2024-04-28 | Outpatient (CLI) | payer MEDICAID, SELFPAY ==
--- NOTE | 2024-04-28 07:22 | US_ITS ---
STUDY: ABDOMINAL ULTRASOUND - RIGHT UPPER QUADRANT REASON FOR VISIT: Female, 28 years old epigastric abdominal pain, nausea, vomiting TECHNIQUE: Ultrasound evaluation of the right upper quadrant was performed with real-time and static workman-scale imaging. TECHNICAL QUALITY: Adequate. COMPARISON: 02/10/2022 FINDINGS: Liver: The liver measures 16.0 cm. There is normal echogenicity of the liver. The bile ducts are within normal limits. There is hepatic color flow. The direction of portal flow is hepatopetal. There is no demonstrated mass lesion. Gallbladder: The patient is status post cholecystectomy. s. Common Bile Duct (C.B.D.): The common bile duct measures 3 mm. Pancreas: There is diffuse atrophy of the pancreas. There is normal echogenicity of the pancreas. There is no demonstrated pancreatic mass or cyst. Right Kidney: Normal size of the right kidney. The right kidney measures 11.0 cm. Normal renal cortex. The right cortex measures 1.2 cm. 1.5 cm cyst upper pole right kidney. There is no right hydronephrosis. US/Abdomen Limited IMPRESSION: Normal right upper quadrant ultrasound examination after cholecystectomy. Electronically Signed: Juan Crawford MD at 13:46 EST ,
== END | disposition home or self-care (01) ==
LOC: US 07:21
PROVIDERS: PCP Family Medicine; Referring Provider Nurse Practitioner Acute Care; Visit Provider Nurse Practitioner Acute Care
DX: R10.13 Epigastric pain (principal); R11.2 Nausea with vomiting, unspecified; K62.5 Hemorrhage of anus and rectum
CPT/HCPCS: 76705

== ENCOUNTER 2024-06-07 20:20 | Emergency (ER) | payer MEDICAID, SELFPAY ==
[2024-06-07 20:21] VITALS: BP 119/51; PULSE 84; RESP 18; TEMP 36.6; O2SAT 98; BMI 23.6
[2024-06-07] MEDS: Ondansetron ODT 4 MG Tablet 8 MG PO (20:47)
--- NOTE | 2024-06-07 20:57 | EDS_ITS ---
<Statement entered by Donavan Rivera DO - 06/07/24 22:38> Patient was seen and examined with nurse tania Cerna All components of the history and physical confirmed and agreed. History of present illness and physical exam: Patient is a 28-year-old female past medical history of bipolar, tobacco use, drug abuse, chronic abdominal pain who presents to the emergency department chief complaint of nausea vomiting for the last 2 to 3 days. She states that all of her children have similar illness as well. She states that she is vomiting more than normal therefore she went to come here for the valuation management. States that she has a gastroenterology appointment scheduled in the near future. Review of systems: Agree with above Physical exam: Agree with above MDM Patient is a 28-year-old female who presented to the emergency department with a chief complaint of nausea vomiting not feeling well. On the differential diagnose includes but not limited to COVID, flu, viral gastroenteritis.patient will be given Zofran and oral challenge. On reevaluation of the patient she was tolerating oral intake here in the emergency department she would like to go home at this point time. Patient's son is in the room with her being evaluated as well and we performed COVID flu and RSV on him. He did test positive for influenza A here and she states that she likely has the same virus as he does and does not want testing. She would like to go home at this point in time. She is encouraged to follow-up with her primary care physician and return with worsening symptoms or concerns. She was given prescription for Zofran. All question concerns answered she was discharged home in stable condition. Final impression: Viral gastroenteritis Nausea and vomiting Disposition: Patient will be discharged home in stable condition Supervising attending attestation: Donavan Rivera D.O. [facility] History of Present Illness Chief Complaint: Nausea/Vomiting/Diarrhea Narrative Narrative: Patient is a 28-year-old female with history of bipolar, tobacco use history of drug abuse, chronic abdominal pain, who sees GI presenting to the emergency department for complaints of nausea and vomiting for last 2 to 3 days. Patient states that all of her children have similar illnesses, patient is actually here with one of her children as a patient. She states that she just is vomiting more than usual, she also feels anxious. She denies any chest pain, shortness of breath. Pay states she is mostly here for her child. [facility] Medical History Hepatitis C test positive H/O emotional problems Hives UTI (urinary tract infection) Bone fracture Alcohol abuse Depression affecting Positive urine drug screen Anemia Herpes Tobacco abuse complicated by subutex maintenance, antepartum History of drug abuse Home Medications ?Medication ?Instructions ?Recorded ?Last Taken ?Type lansoprazole 30 mg capsule,delayed 30 mg PO BID #60 ca ps 05/27/24 Unknown Rx release ondansetron 8 mg disintegrating 8 mg PO Q12H PRN nause a and 05/27/24 Unknown Rx tablet vomiting #30 tabs famotidine 40 mg tablet 40 mg PO QHS #30 tabs Unknown Rx ondansetron 4 mg disintegrating 4 mg PO Q8H PRN PRN Na usea #10 tabs 06/07/24 Unknown Rx tablet Allergy/AdvReac Type Severity Reaction Status Date / Time clindamycin Allergy Hives Verified 06/07/24 20:21 diphenhydramine HCl (From Allergy Hives Verified 06/07/24 20:21 Benadryl) Penicillins Allergy Hives Verified 06/07/24 20:21 Family History Other Alcoholism Anxiety Arthritis Cancer Cervical cancer Depression Diabetes Mental disorder Ovarian cancer Psychiatric care Seizures Thyroid disorder Surgical History History of cholecystectomy History of Social History household members: family housing: house number of children: 2 Smoking Status: Current every day smoker tobacco type: cigarettes alcohol intake: former substance use type: former substance user Date of last use: 05/2020 what type of physical activity do you participate in: none do you feel safe at home: Yes ROS ROS ED ROS Narrative Constitutional: Negative for fever, weight loss, weakness. Positive for chills Eyes: Negative for vision loss, vision change, double vision ENT: Negative for any sore throat, ear pain, congestion Cardiovascular: Negative for any chest pain, tightness, palpitations Respiratory: Negative for any cough, sputum production, hemoptysis, dyspnea, dyspnea on exertion, orthopnea Gastrointestinal: Negative for any abdominal pain, diarrhea, constipation, blood in stool, blood in vomit. Positive for nausea and vomiting : Negative for any urinary frequency, dysuria, retention, blood in urine Muscle skeletal: Negative for any neck pain, back pain Neurological: Negative for any headache, syncope, dizziness Skin: Negative for any rashes, itching, abrasions, lacerations Psychiatric: Negative for any depression, anxiety, stress, suicidal ideation, homicidal ideation Hematologic: Negative for any excessive bruising, easy bleeding EXAM Physical Exam Narrative Exam Narrative: Vital signs reviewed. HEET: Head normocephalic atraumatic, TMs clear bilaterally. Posterior pharynx is clear, moist mucous membranes. Nares clear bilaterally. Neck: Supple with no lymphadenopathy or tenderness. No signs of meningismus. Cardiac: Regular rate and rhythm no murmurs gallops or rubs, equal peripheral pulses bilaterally. Respiratory: Lungs clear to auscultation bilaterally. No chest tenderness. Abdomen: Soft, nontender, nondistended. No abdominal bruit or pulsatile masses. No hepatosplenomegaly Extremities: No peripheral edema, no signs of gross trauma or deformity. Active full range of motion of all extremities. Neuro: Cranial nerves II through XII intact, no focal neurological deficits. Skin: Clean dry and intact with no rash, purpura, petechiae, vesicles or pustules. Backs/flank: No CVA tenderness, no midline spinal tenderness, no deformity. Psych: Normal mood and affect. No SI, HI or acute psychosis. Const Vital Signs: 06/07/24 20:21 Temperature 97.8 F Temperature Source Oral Pulse Rate 84 Respiratory Rate 18 Blood Pressure 119/51 L Blood Pressure Mean 73 Pulse Ox 98 Oxygen Delivery Method Room Air [facility] Treatment and Re-Evaluation Narrative: Differential diagnosis includes however is not limited to: Viral gastroenteritis, COVID-19, influenza, RSV, dehydration Patient appears generally well, vital signs are stable, patient is nontoxic- appearing. Presenting to the [facility] part for complaints of intermittent vomiting over the last several days, patient has been ill as well as her family, she is here with her son who is also ill. Patient received 8 mg of oral Zofran, she is drinking oral fluids on her arrival. Patient is resting in the room with her son. Patient is able to keep down water, as well as a popsicle. Patient at this time is stable for discharge. I did perform a COVID-19 influenza RSV swab on the patient's son who is more febrile. The patient is happy this plan of care, she will continue to follow-up outpatient. She will be given a prescription for Zofran Discharge Plan Triage Chief Complaint: Nausea/Vomiting/Diarrhea ED Midlevel Provider: Nehemiah Benjamin ED Provider: Donavan Rivera Dx/Rx/DC Orders Clinical Impression: Nausea & vomiting, Viral gastroenteritis Instructions: ED Gastroenteritis, Viral (Adult), ED Vomiting (Adult) Prescriptions: New ondansetron 4 mg tablet,disintegrating 4 mg PO Q8H PRN PRN (Reason: Nausea) Qty: 10 0RF No Action ondansetron 8 mg tablet,disintegrating 8 mg PO Q12H PRN (Reason: nausea and vomiting) Qty: 30 0RF lansoprazole 30 mg capsule,delayed release(DR/EC) 30 mg PO BID Qty: 60 1RF famotidine 40 mg tablet 40 mg PO QHS Qty: 30 2RF Primary Care Provider: Nando Murray Referrals: Nando Murray MD [Primary Care Provider] - Activity Restrictions/Additional Instructions: Please continue to follow-up outpatient. Print Language: Bulgarian Disposition Disposition: Home, Self Care
[2024-06-07 22:20] VITALS: PULSE 75; RESP 18
[2024-06-07 22:23] VITALS: BP 119/51; PULSE 75; RESP 18; TEMP 36.6; O2SAT 98
== END 2024-06-07 22:23 | disposition home or self-care (01) ==
PROVIDERS: Emergency Provider Emergency Medicine; PCP Family Medicine; Visit Provider Emergency Medicine
DX: A08.4 Viral intestinal infection, unspecified (principal); Z20.828 Contact with and (suspected) exposure to other viral communicable diseases; G89.29 Other chronic pain; F17.210 Nicotine dependence, cigarettes, uncomplicated; Z79.899 Other long term (current) drug therapy
CPT/HCPCS: 99282

== ENCOUNTER 2024-06-26 08:48 | Day surgery (SDC) | payer MEDICAID, SELFPAY ==
[2024-06-26] VITALS (8 sets, daily range): BP systolic 102–115; BP diastolic 46–75; PULSE 60–81; RESP 12–18; TEMP 36.3–37; O2SAT 99–100; BMI 22.4
--- NOTE | 2024-06-26 09:48 | PCM.PRE.AN2 ---
ASA Classification* ASA Classification ASA Classification: 2 Assessment & Plan Anesthesia* Anesthesia Assessment Anesthesia Assessment: Discussed sedation and/or anesthesia options, risks, benefits, and alternatives with patient/parents/legal guardian/POA. Questions invited. The patient/parents/legal guardian/POA seems to understand and agrees to proceed with anesthesia plan. Reviewed the physical assessment, medical history, allergy history and patient home medications list prior to surgery/procedure/anesthetic and documented any changes. Performed airway and anesthesia risk assessments. Anesthesia Type Anesthesia Type: MAC History Source History Obtained from:: Patient and Chart Anesthesia Focused Assessment* Temperature: 98.6 F Pulse Rate: 60 Blood Pressure: 102/46 Respiratory Rate: 16 Pulse Ox: 99 Oxygen Delivery Method: Room Air Airway Assessment Mouth opens: >3 cm Mallampati Score: II Teeth Condition: Intact Neck Range of motion (ROM): Full ROM Focused Labs Anesthesia Preop lab: CBC WBC 4.9 K/mm3 (4.4-11.0) 01/30/22 11:11 01/30/22 RBC 3.88 M/mm3 (4.2-5.4) L 01/30/22 11:11 01/30/22 Hgb 11.1 g/dL (12.0-15.0) L 01/30/22 11:11 01/30/22 Hct 33.0 % (37-47) L 01/30/22 11:11 01/30/22 Plt Count 202 K/mm3 (150-450) 01/30/22 11:11 01/30/22 CHEMISTRY Potassium 4.0 mmol/L (3.5-5.1) 01/30/22 11:11 01/30/22 Sodium 138 mmol/L (136-145) 01/30/22 11:11 01/30/22 BUN 10 mg/dL (7-18) 01/30/22 11:11 01/30/22 Creatinine 0.70 mg/dL (0.55-1.02) 01/30/22 11:11 01/30/22 Glucose 105 mg/dL (74-106) 01/30/22 11:11 01/30/22 POC Glucose 123 mg/dL (70-110) H 09/30/19 06:39 09/30/19 TSH 0.55 uIU/mL (0.358-3.74) 01/30/22 11:11 01/30/22 COAG PT 12.9 SECONDS (11.7-14.9) 09/26/19 13:50 09/26/19 HCG, Quant 9990 mIU/mL (1-3) H 01/31/21 14:24 01/31/21 Urine Test Negative Negative 05/16/19 19:15 05/16/19 Tst Clinic Negative 06/27/19 09:25 06/27/19 Pre-Assessment Diagnosis/Proposed Procedure Planned Operative Procedure(s): EGD/CSCOPE Anesthesia History 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 When Was Last Pacemaker Check QUESTION #4 FULL TEXT: You/Your Family Experience fever (hyperthermia) with Anesthesia Last Oral Intake Last Oral intake: Last Oral Intake NPO since 08:00 06/26/24 09:12 Meds taken in AM with sips of Yes 06/26/24 09:12 water? Meds patient instructed to take am of surgery PONV PONV - tourist cabin keeper: PONV - tourist cabin keeper Female Yes 06/24/24 12:26 HX of Motion Sickness No 06/24/24 12:26 HX of N/V After Surgery No 06/24/24 12:26 Non-Smoker No 06/24/24 12:26 Duration of Surgery greater No 06/24/24 12:26 than 60 minutes Number of Risk Factors 1 06/24/24 12:26 PONV Score Low Risk 06/24/24 12:26 Height & Weight Height & Weight: Anesthesia: Height & Weight Height 5 ft 2 in 06/26/24 09:12 Weight: 55.792 kg 06/26/24 09:12 Body Mass Index (BMI) 22.4 06/26/24 09:12 Respiratory Assessment Respiratory Assessment - tourist cabin keeper: Respiratory Tract Infection Hx - tourist cabin keeper Hx Respiratory Tract Infection No 06/24/24 12:26 STOP Sleep Apnea STOP Sleep Apnea - tourist cabin keeper: STOP Sleep Apnea - tourist cabin keeper Hx Hypertension No 06/24/24 12:26 Hx Sleep Apnea No 06/24/24 12:26 CPAP BIPAP Do you snore loudly (louder No 06/24/24 12:26 than talking or can be heard Do you often feel tired/ No 06/24/24 12:26 fatigued/ sleepy during daytime? Has anyone observed you stop No 06/24/24 12:26 breathing during sleep? STOP Results Negative 06/24/24 12:26 QUESTION #5 FULL TEXT : Do you snore loudly (louder than talking or can be heard through closed doors)? 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 Specify any problems Hx of Preganancy in last 3 No 06/24/24 12:26 Months Nurse Filling Out Transfusion DSCHRIBER 06/24/24 12:26 & Questions: Date: 06/24/24 06/24/24 12:26 Time: 12:27 06/24/24 12:26 Patient unable to answer at this time (ie. confused, unrespo /Reproduction History /Reproductive History - tourist cabin keeper: /Reproductive Hx- tourist cabin keeper Hx Now No 06/24/24 12:26 Gestational Age (in weeks): EDC: Hx Hx Para Hx Section SAB No 06/24/24 12:26 PFSH Medical History (Updated 06/24/24 @ 12:34 by Missy Fletcher) Wears contact lenses Marijuana use Easy bruising Migraine headache Syncope Seizures History of ulceration Gastric reflux Smoker Hepatitis C test positive H/O emotional problems Alcohol abuse Depression affecting Positive urine drug screen Anemia Herpes Tobacco abuse complicated by subutex maintenance, antepartum History of drug abuse Home Medications ?Medication ?Instructions ?Recorded ?Last Taken ?Type lansoprazole 30 mg capsule,delayed 30 mg PO BID #60 caps 05/27/24 06/25/24 Rx release famotidine 40 mg tablet 40 mg PO QHS #30 tabs 05/28/24 06/24/24 Rx ondansetron 8 mg disintegrating 8 mg PO Q12H PRN nausea and 06/12/24 06/26/24 08:00 Rx tablet vomiting #30 tabs Allergy/AdvReac Type Severity Reaction Status Date / Time clindamycin Allergy Hives Verified 06/26/24 09:10 diphenhydramine HCl (From Allergy Hives Verified 06/26/24 09:10 Benadryl) Penicillins Allergy Hives Verified 06/26/24 09:10 Family History Other Alcoholism Anxiety Arthritis Cancer Cervical cancer Depression Diabetes Mental disorder Ovarian cancer Psychiatric care Seizures Thyroid disorder Surgical History (Updated 06/24/24 @ 12:34 by Missy Fletcher) History of esophagogastroduodenoscopy (EGD) History of cholecystectomy History of Social History household members: family housing: house number of children: 2 Smoking Status: Current every day smoker tobacco type: cigarettes alcohol intake: former substance use type: former substance user Date of last use: 05/2020 what type of physical activity do you participate in: none do you feel safe at home: Yes Review of Systems (Anesthesia) ROS Narrative System reviewed and no additional complaints, except as documented.
--- NOTE | 2024-06-26 10:00 | IMM_PTH ---
PATIENT: REJI LOPEZ LOC: EN U#:[id number] AGE/SX: 28/F ROOM: RE06/26/[address]: Dr. Arik Martinez DO : 1995 BED: DIS: 06/26/2024 SPEC #: [id number] RECD: 06/26/24 13:16 STATUS: ANETA RESari #: [id number] AARON: 06/26/24 10:[address]: Arik Martinez DEPT: IMMUNOHISTOCHEMISTRY RECD BY: Joseph Doan ENTERED: 06/26/24 13:16 SP TYPE: IMMUNO OTHR DR: Dr. Nando Murray MD Tissues: A - Gastric mucous membrane Procedures: H Pylori (initial) PHYSICIAN & INSTITUTION [place] [id number] SPECIMEN INFORMATION: Tissue Source: A- Gastric antrum biopsy Clinical Info: Nausea / vomiting, epigastric pain, rectal bleeding Specimen Number: [id number] CPT code: 34187 METHODOLOGY: Deparaffinized sections of prefer/formalin-fixed tissue or PAP/DQ stained slides are incubated with monoclonal/polyclonal antibodies/oligonucleotide probes. Localization is made via biotin free immunoperoxidase method. Appropriate controls are performed and reacted as expected. Results on target cell population are indicated in the following table: RESULTS: ANTIBODY / CLONE RESULT Block A H Pylori (polyclonal) negative These tests were developed and their performance characteristics determined by [facility]. They may not have been cleared or approved by the U.S. Food and Drug Administration. The FDA has determined that such clearance or approval is not necessary. The above immunohistochemical/dualISH markers are ordered and reviewed by the Pathologist. INTERPRETATION: A. Gastric antrum, biopsy: Negative for Helicobacter pylori organisms. RENE. 06/27/2024
--- NOTE | 2024-06-26 10:00 | COLBX_PTH ---
PATIENT: REJI LOPEZ LOC: EN U#:[id number] AGE/SX: 28/F ROOM: RE06/26/[address]: Dr. Arik Martinez DO : 1995 BED: DIS: 06/26/2024 SPEC #: [id number] RECD: 06/26/24 11:59 STATUS: ANETA MARANDA #: [id number] AARON: 06/26/24 10:[address]: Arik Martinez DEPT: SURGICAL PATHOLOGY RECD BY: Tad Briones ENTERED: 06/26/24 11:59 SP TYPE: COLON BX OTHR DR: Dr. Nando Murray MD Tissues: A - Gastric mucous membrane B - Ileum, NOS C - COLON BIOPSY Procedures: Surgery Specimen Level IV HEADER OPERATION: Colonoscopy, EGD with biopsy PRE-OP DIAGNOSIS: Nausea / vomiting, epigastric pain, rectal bleeding TISSUE SUBMITTED: A- Gastric antrum biopsy, B- Terminal ileum biopsy, C- Random colonic biopsy MICROSCOPIC DIAGNOSIS A. Gastric antrum, biopsy: Mild gastritis. See microscopic description and comment. B. Terminal ileum, biopsy: Fragments of small intestinal mucosa, no pathologic diagnosis. C. Colon, random biopsy: Fragments of colonic mucosa, no pathologic diagnosis. 06/27/2024 COMMENT A. The results of immunohistochemistry for Helicobacter pylori will be reported separately ([id number]). MICROSCOPIC DESCRIPTION Slides are reviewed. A. The specimen shows fragments of gastric mucosa with chronic inflammatory cell infiltrates in the lamina propria consisting of lymphocytes and plasma cells, consistent with mild chronic gastritis. GROSS DESCRIPTION A. Received in fixative is one container labeled with the patient's name and designated Gastric antrum biopsy. The specimen consists of multiple irregular fragments of light richmond soft tissue that in aggregate measure 0.9 x 0.5 x 0.1 cm. The specimen is totally submitted in one cassette. B. Received in fixative is one container labeled with the patient's name and designated Terminal ileum biopsy. The specimen consists of one irregular fragment of light richmond soft tissue that measures 0.5 x 0.4 x 0.1 cm. The specimen is totally submitted in one cassette. C. Received in fixative is one container labeled with the patient's name and designated Random colonic biopsy. The specimen consists of multiple irregular fragments of light richmond soft tissue that in aggregate measure 1.1 x 0.6 x 0.2 cm. The specimen is totally submitted in one cassette. MS/mr 06/26/2024 TC:3 CPT:44613n9
--- NOTE | 2024-06-26 10:06 | PCM.HP.STD ---
HPI - General General Date of Admission: 07/09/24 Date of Service: 06/26/24 Chief Complaint: nausea, vomiting and diarrhea HPI Narrative REJI LOPEZ, is a 28 F who presents for the endoscopic evaluation of nausea, vomiting and diarrhea. 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 - treated for HCV - denies any alcohol use - she does smoke marijuana daily for the past 2 months - she reports UGI symptoms were further exacerbated when she went off Suboxone for the past 2-3 months - IBU 400mg TID for headaches [facility] Medical History (Updated 06/24/24 @ 12:34 by Missy Fletcher) Wears contact lenses Marijuana use Easy bruising Migraine headache Syncope Seizures History of ulceration Gastric reflux Smoker Hepatitis C test positive H/O emotional problems Alcohol abuse Depression affecting Positive urine drug screen Anemia Herpes Tobacco abuse complicated by subutex maintenance, antepartum History of drug abuse Home Medications ?Medication ?Instructions ?Recorded ?Last Taken ?Type lansoprazole 30 mg capsule,delayed 30 mg PO BID #60 caps 05/27/24 06/25/24 Rx release famotidine 40 mg tablet 40 mg PO QHS #30 tabs 05/28/24 06/24/24 Rx ondansetron 8 mg disintegrating 8 mg PO Q12H PRN nausea and 06/12/24 06/26/24 08:00 Rx tablet vomiting #30 tabs Allergy/AdvReac Type Severity Reaction Status Date / Time clindamycin Allergy Hives Verified 06/26/24 09:10 diphenhydramine HCl (From Allergy Hives Verified 06/26/24 09:10 Benadryl) Penicillins Allergy Hives Verified 06/26/24 09:10 Family History Other Alcoholism Anxiety Arthritis Cancer Cervical cancer Depression Diabetes Mental disorder Ovarian cancer Psychiatric care Seizures Thyroid disorder Surgical History (Updated 06/24/24 @ 12:34 by Missy Fletcher) History of esophagogastroduodenoscopy (EGD) History of cholecystectomy History of Social History household members: family housing: house number of children: 2 Smoking Status: Current every day smoker tobacco type: cigarettes alcohol intake: former substance use type: former substance user Date of last use: 05/2020 what type of physical activity do you participate in: none do you feel safe at home: Yes ROS Constitutional Constitutional: Denies fatigue, fever(s), poor appetite, weight gain or weight loss Gastrointestinal Gastrointestinal: Denies belching, bloating, change in bowel habits, change in stool character, chewing difficulty, coffee ground emesis, constipation, cramping, diarrhea, dyspepsia, dysphagia, early satiety, excessive flatus, fecal incontinence, heartburn, hematemesis, hematochezia, hemorrhoids, loose stools, melena, nausea, odynophagia, rectal bleeding, tenesmus, vomiting or weight changes Vital Signs Vital Signs Vital Signs: 06/26/24 09:11 06/26/24 09:12 06/26/24 09:54 Temperature 98.6 F 98.6 F Temperature Source Temporal Pulse Rate 60 60 Respiratory Rate 16 16 Respiratory Pattern Normal Blood Pressure 102/46 L 102/46 L Blood Pressure Mean 64 Blood Pressure Source Monitor Blood Pressure Position Semi-Fowlers Blood Pressure Location Right Arm Pulse Ox 99 99 Oxygen Delivery Method Room Air Room Air Weight Weight: 123 lb Body Mass Index (BMI) 22.4 Physical Exam Const alert, oriented x3, no apparent distress and healthy appearing General Appearance: cooperative GI normal to inspection, nondistended, normoactive bowel sounds, soft to palpation, non-tender and non-distended Percussion: normal to percussion Rectal Exam: deferred Assessment & Plan Assessment/Plan (1) Rectal bleeding: (2) Epigastric pain: PLAN: Assessment and Plan Assessment and Plan (1) Nausea and vomiting: Status: Inactive Plan: EGD, ABD US, Lansoprazole, Carafate, Famotidine (2) Epigastric pain: Status: Acute Plan: EGD, ABD US, Lansoprazole, Carafate, Famotidine (3) Rectal bleeding: Status: Acute Plan: Anusol, Colonoscopy w/banding Orders: Orders Abdomen Limited 04/21/24 K62.5 - Hemorrhage of anus and rectum, R10.13 - Epigastric pain, R11.2 - Nausea with vomiting, unspecified Medications: New lansoprazole 30 mg orally once a day in the morning 30 minutes before breakfast; 30 caps 1RF famotidine 40 mg PO QHS 30 tabs 2RF sucralfate (Carafate) 10 mL PO TID 1,000 mL 0RF hydrocortisone 2.5% (Anusol-HC) 1 applic MN QD-BID 30 grams 0RF 10 days Discontinued famotidine Discontinued Reason: Order Completed 20 mg PO DAILY esomeprazole magnesium (Nexium 24HR) Discontinued Reason: Order Changed 20 mg PO QDAY Plan 28y/o female presents for initial consultation with complaints of chronic epigastric pain and emesis. She has episodes of nausea and emesis at HS and every morning worse over the past three months with discontinuing Suboxone. She has been managing symptoms with ondansetron, nexium and famotidine. Her PMH is significant for opioid abuse, two years sober. Symptoms were present prior to discontinuing Suboxone and have continued to worsen. In addition to epigastric love she is also experiencing RUQ pain which never resolved with CCX in 2021. She is taking IBU 400mg TID for management of chronic headaches.She reports a loss of appetite but notes symptoms do not worsen with PO intake. We have discussed importance of discontinuing non-steroidal medications. I have started her on Lansoprazole every morning and pepcid at HS. She will schedule ABD US and EGD. DDX includes PUD, SOD, bile acid gastritis. I have also started her on Carafate and educated on timing with other medications. Lastly, she complains of intermittent rectal bleeding and she will schedule colonoscopy with hemorrhoid banding. She will trial Anusol in the interim. We will obtain recent labs from PCP. Patient Instructions: - Avoid use of non-steroidal medications - Start Lansoprazole every morning and take Famotidine at HS - Start Carafate - avoid taking within 2h of other medications - Discontinue Esomeprazole - Anusol for treatment of hemorrhoids - F/U in office after completion of ABD US, EGD and colonoscopy
--- NOTE | 2024-06-26 10:57 | OP.EGD_ITS ---
Patient Name: Amina Lorenzo Procedure Date: 06/26/2024 10:18 AM Date of : 1995 Age: 28 Procedure: Upper GI endoscopy Indications: Epigastric abdominal pain Providers: Arik Martinez DO Referring MD: Nando Murray Medicines: Monitored Anesthesia Care Patient Profile: This is a 28 year old female. Refer to note in patient chart for documentation of history and physical. Patient has symptoms of chronic abdominal cramping, chronic abdominal distention and acute epigastric abdominal pain. Complications: No immediate complications. Procedure: Pre-Anesthesia Assessment: - Prior to the procedure, a History and Physical was performed, and patient medications and allergies were reviewed. The patient is competent. The risks and benefits of the procedure and the sedation options and risks were discussed with the patient. All questions were answered and informed consent was obtained. Patient identification and proposed procedure were verified by the physician in the pre-procedure area. Mental Status Examination: alert and oriented. Airway Examination: normal oropharyngeal airway and neck mobility. Respiratory Examination: clear to auscultation. CV Examination: normal. Prophylactic Antibiotics: The patient does not require prophylactic antibiotics. Prior Anticoagulants: The patient has taken no anticoagulant or antiplatelet agents except for NSAID medication. ASA Grade Assessment: II - A patient with mild systemic disease. After reviewing the risks and benefits, the patient was deemed in satisfactory condition to undergo the procedure. The anesthesia plan was to use monitored anesthesia care (MAC). Immediately prior to administration of medications, the patient was re-assessed for adequacy to receive sedatives. The heart rate, respiratory rate, oxygen saturations, blood pressure, adequacy of pulmonary ventilation, and response to care were monitored throughout the procedure. The physical status of the patient was re-assessed after the procedure. After obtaining informed consent, the endoscope was passed under direct vision. Throughout the procedure, the patient's blood pressure, pulse, and oxygen saturations were monitored continuously. The Colonoscope was introduced through the mouth, and advanced to the second part of duodenum. The upper GI endoscopy was accomplished without difficulty. The patient tolerated the procedure well. Scope In: 10:25:50 AM Scope Out: 10:30:17 AM Total Procedure Duration Time 0 hours 4 minutes 27 seconds Findings: The examined esophagus was normal. Bilious fluid was found in the gastric body. Biopsies were taken with a cold forceps for Helicobacter pylori testing. Verification of patient identification for the specimen was done. Estimated blood loss was minimal. Mildly erythematous mucosa without active bleeding and with no stigmata of bleeding was found in the duodenal bulb. Biopsies were taken with a cold forceps for histology. Verification of patient identification for the specimen was done. Estimated blood loss was minimal. Impression: - Normal esophagus. - Bilious gastric fluid. Biopsied. - Erythematous duodenopathy. Biopsied. Recommendation: - Discharge patient to home. - Resume previous diet. - Continue present medications. - Await pathology results. -Suspect gastroparesis Procedure Code(s): --- Professional --- 21283, Esophagogastroduodenoscopy, flexible, transoral; with biopsy, single or multiple CPT copyright 2021 [employer]. All rights reserved. The codes documented in this report are preliminary and upon financial planner review may be revised to meet current compliance requirements. Arik Martinez DO 06/26/2024 10:56:28 AM This report has been signed electronically. Number of Addenda: 0 Note Initiated On: 06/26/2024 10:18 AM
--- NOTE | 2024-06-26 10:57 | OP.CCLET_ITS ---
06/26/2024 Nando Murray Re : Upper GI endoscopy procedure for Amina Lorenzo Zulyr Trevor This procedure was performed on June. My impressions and recommendations are as follows: Impressions : - Normal esophagus. - Bilious gastric fluid. Biopsied. - Erythematous duodenopathy. Biopsied. Recommendations : - Discharge patient to home. - Resume previous diet. - Continue present medications. - Await pathology results. -Suspect gastroparesis My findings are described in the full procedure note, which is enclosed. If I can be of further assistance, please feel free to contact me at . Sincerely, Arik Martinez, 06/26/2024 10:56:28 AM This report has been signed electronically.
--- NOTE | 2024-06-26 11:00 | PCM.POST.ANE ---
Anesthesia: Postop Eval I Current Vital Signs Temperature: 97.7 F Pulse Rate: 81 Blood Pressure: 108/68 Respiratory Rate: 16 Pulse Ox: 100 Oxygen Delivery Method: Room Air Assessment Airway patent: Yes Spontaneous unlabored respirations: Yes Mental status: Awake and Calm nausea: No Vomiting: No Anesthesia Complication: No Fluid Hydration Crystalloid volume administer (ml): 60 Total IV fluid infused: 60 Progress Note Anesthesia document: Postop Eval 1 completed: Yes
--- NOTE | 2024-06-26 11:01 | OP.CCLET_ITS ---
06/26/2024 Nando Murray Re : Colonoscopy procedure for Amina Lorenzo Dear Trevor This procedure was performed on June. My impressions and recommendations are as follows: Impressions : - Preparation of the colon was fair. - The entire examined colon is normal. Biopsied. - The examined portion of the ileum was normal. Biopsied. Recommendations : - Discharge patient to home (ambulatory). - Repeat colonoscopy is recommended. The colonoscopy date will be determined after pathology results from today's exam become available for review. - Continue present medications. My findings are described in the full procedure note, which is enclosed. If I can be of further assistance, please feel free to contact me at . Sincerely, Arik Martinez, 06/26/2024 11:01:04 AM This report has been signed electronically.
--- NOTE | 2024-06-26 11:01 | OP.COLON_ITS ---
Patient Name: Amina Lorenzo Procedure Date: 06/26/2024 10:30 AM Date of : 1995 Age: 28 Procedure: Colonoscopy Indications: Epigastric abdominal pain, Generalized abdominal pain, Abdominal pain in the left lower quadrant Providers: Arik Martinez DO Referring MD: Nando Murray Medicines: Monitored Anesthesia Care Patient Profile: This is a 28 year old female. Refer to note in patient chart for documentation of history and physical. Patient has symptoms of chronic abdominal cramping, chronic abdominal distention and acute epigastric abdominal pain. Last Colonoscopy: none. The patient's first colonoscopy is today. Complications: No immediate complications. Procedure: Pre-Anesthesia Assessment: - Prior to the procedure, a History and Physical was performed, and patient medications and allergies were reviewed. The patient is competent. The risks and benefits of the procedure and the sedation options and risks were discussed with the patient. All questions were answered and informed consent was obtained. Patient identification and proposed procedure were verified by the physician in the pre-procedure area. Mental Status Examination: alert and oriented. Airway Examination: normal oropharyngeal airway and neck mobility. Respiratory Examination: clear to auscultation. CV Examination: normal. Prophylactic Antibiotics: The patient does not require prophylactic antibiotics. Prior Anticoagulants: The patient has taken no anticoagulant or antiplatelet agents except for NSAID medication. ASA Grade Assessment: II - A patient with mild systemic disease. After reviewing the risks and benefits, the patient was deemed in satisfactory condition to undergo the procedure. The anesthesia plan was to use monitored anesthesia care (MAC). Immediately prior to administration of medications, the patient was re-assessed for adequacy to receive sedatives. The heart rate, respiratory rate, oxygen saturations, blood pressure, adequacy of pulmonary ventilation, and response to care were monitored throughout the procedure. The physical status of the patient was re-assessed after the procedure. After I obtained informed consent, the scope was passed under direct vision. Throughout the procedure, the patient's blood pressure, pulse, and oxygen saturations were monitored continuously. The Colonoscope was introduced through the anus and advanced to the cecum, identified by appendiceal orifice and ileocecal valve. The colonoscopy was performed with ease. The patient tolerated the procedure well. The quality of the bowel preparation was fair. Scope In: 10:32:11 AM Scope Withdrawal Time 0 hours 6 minutes 24 seconds Scope Out: 10:45:27 AM Total Procedure Duration Time 0 hours 13 minutes 16 seconds Findings: The perianal and digital rectal examinations were normal. The colon (entire examined portion) appeared normal. Biopsies for histology were taken with a cold forceps from the left colon and right transverse colon for evaluation of microscopic colitis. Verification of patient identification for the specimen was done. The terminal ileum appeared normal. Biopsies were taken with a cold forceps for histology. Impression: - Preparation of the colon was fair. - The entire examined colon is normal. Biopsied. - The examined portion of the ileum was normal. Biopsied. Recommendation: - Discharge patient to home (ambulatory). - Repeat colonoscopy is recommended. The colonoscopy date will be determined after pathology results from today's exam become available for review. - Continue present medications. Procedure Code(s): --- Professional --- 94648, Colonoscopy, flexible; with biopsy, single or multiple CPT copyright 2021 [employer]. All rights reserved. The codes documented in this report are preliminary and upon computer analyst supervisor review may be revised to meet current compliance requirements. Arik Martinez DO 06/26/2024 11:01:04 AM This report has been signed electronically. Number of Addenda: 0 Note Initiated On: 06/26/2024 10:30 AM
--- NOTE | 2024-06-26 12:50 | PCM.POSTANE2 ---
Anesthesia Postop Eval I Sum Postop Eval Completion status Anesthesia document: Postop Eval 1 completed: Yes Anesthesia Postop Eval I Summary Anesthesia Postop Eval I Summary: Anesthesia Postop Eval I: Assessment Summary Airway patent Yes 06/26/24 11:01 [email or web address] Spontaneous unlabored Yes 06/26/24 11:01 [email or web address] respirations Mental status Awake,Calm 06/26/24 11:01 [email or web address] nausea No 06/26/24 11:01 [email or web address] Vomiting No 06/26/24 11:01 [email or web address] Anesthesia Postop Eval I: Fluid Summary Crystalloid volume administer 60 06/26/24 11:01 [email or web address] (ml) Colloids volume administered ( ml) Blood Product volume administered (ml) Total IV fluid infused 60 06/26/24 11:01 [email or web address] Anesthesia Postop Eval I: Summary Notes Anesthesia Complication No 06/26/24 11:01 [email or web address] Anesthesia Complication Comment: Post-operative progress note Anesthesia: Postop Eval II Evaluation Mental status: Awake and Calm Pain Level: 0 nausea: No Vomiting: No Complications Anesthesia Complication: No
== END 2024-06-26 11:35 | disposition home or self-care (01) ==
LOC: EN 08:49 → AC 08:51
PROVIDERS: PCP Family Medicine; Referring Provider Family Medicine; Visit Provider Internal Medicine Gastroenterology
PROC: 0DJD8ZZ Inspection of Lower Intestinal Tract, Via Natural or Artificial Opening Endoscopic (ICD-10-PCS; CPT 45378; principal; 2024-06-26 09:55)
DX: K29.70 Gastritis, unspecified, without bleeding (principal); R10.13 Epigastric pain; R10.32 Left lower quadrant pain; K62.5 Hemorrhage of anus and rectum; K21.9 Gastro-esophageal reflux disease without esophagitis; R19.7 Diarrhea, unspecified; R11.2 Nausea with vomiting, unspecified; F17.210 Nicotine dependence, cigarettes, uncomplicated
CPT/HCPCS: 45380; 43239; 88305; 88342; A4216; J2405

== ENCOUNTER → 2024-09-17 | Outpatient (CLI) | payer MEDICAID, SELFPAY ==
[2024-09-22 22:52] LABS: HPV Reflexed? NOT INDICATED
== END | disposition home or self-care (01) ==
LOC: LABSPEC 15:37
PROVIDERS: PCP Family Medicine; Referring Provider Nurse Practitioner Family; Visit Provider Nurse Practitioner Family
DX: Z12.4 Encounter for screening for malignant neoplasm of cervix (principal)
CPT/HCPCS: 88175; G0145

== ENCOUNTER 2024-09-18 13:17 | Emergency (ER) | payer MEDICAID, SELFPAY ==
[2024-09-18 13:18] VITALS: BP 143/105; PULSE 80; RESP 18; TEMP 36.9; O2SAT 97; BMI 21.4
== END 2024-09-18 17:08 | disposition left against medical advice (07) ==
LOC: ED 17:10
PROVIDERS: PCP Family Medicine
DX: Z53.21 Procedure and treatment not carried out due to patient leaving prior to being seen by health care provider (principal)

== ENCOUNTER → 2024-09-22 | Outpatient (CLI) | payer MEDICAID, SELFPAY ==
--- NOTE | 2024-09-22 12:26 | US_ITS ---
PROCEDURE: PELVIC W/ TRANSVAGINAL 09/22/2024 REASON FOR EXAM: PELVIC PAIN/LUMP TECHNIQUE: Transabdominal and transvaginal pelvic ultrasound. Color doppler analysis of the ovaries. COMPARISON: None. FINDINGS: Measurements: Uterus: 8.4 x 4.3 x 5.7 cm for volume of 106.6 mL Endometrial Thickness: 0.8 Right Ovary: 3.3 x 2.5 x 3.0 cm for volume of 12.9 mL Left Ovary: 3.8 x 2.7 x 3.3 cm for volume of 17.6 mL Uterus: Anteverted. Normal contour and myometrial echotexture. Nabothian cysts at the cervix. Endometrium: Normal echotexture. Right ovary: There is a questionable lesion within the right ovary measuring 2.4 x 1.7 x 1.5 cm which is similar echogenicity to surrounding ovarian parenchyma and demonstrates minimal internal vascularity on color Doppler evaluation. Additionally, there is suggestion of a mixed cystic and solid lesion in the right ovary with peripheral vascularity measuring 1.2 x 0.8 x 1.0 cm. Left ovary: There is a questionable predominantly solid lesion with scattered cystic spaces in the left ovary measuring 2.8 by 2.4 x 2.6 cm, without significant internal vascularity. Cul-de-sac: No free intraperitoneal fluid identified. US/Pelvic w/ Transvaginal IMPRESSION: Questionable solid lesions in both ovaries, measuring up to 2.4 cm on the right and 2.8 cm on the left. Given nonspecific nature, recommend follow-up ultrasound within 3 months and Gynecology referral (if not already performed) per O-RADS guidelines. Recommend cine images are performed on the subsequent ultrasound. Reading Location: [id number]
== END | disposition home or self-care (01) ==
LOC: OPUS 12:25
PROVIDERS: PCP Family Medicine; Referring Provider Nurse Practitioner Family; Visit Provider Nurse Practitioner Family
DX: R10.2 Pelvic and perineal pain (principal)
CPT/HCPCS: 76830; 76856

== ENCOUNTER 2024-11-10 10:09 | Inpatient (IN) | payer MEDICAID, SELFPAY ==
[2024-11-10] VITALS (19 sets, daily range): BP systolic 95–128; BP diastolic 46–81; PULSE 42–80; RESP 12–30; TEMP 35.8–36.7; O2SAT 20–100; BMI 20.5; BMI 20.8
--- NOTE | 2024-11-10 10:50 | EKG12_ITS ---
Test Reason : CP Blood Pressure : */* mmHG Vent. Rate : 62 BPM Atrial Rate : 62 BPM P-R Int : 144 ms QRS Dur : 88 ms QT Int : 400 ms P-R-T Axes : * 90 75 degrees QTcB Int : 406 ms Normal sinus rhythm Rightward axis Nonspecific ST abnormality Abnormal ECG Confirmed by CLYDE LOBO, SYD ([id number]), online editor DOMINOG VALE ([id number]) on 11/11/2024 8:25:28 AM Referred By: AK/JACQUELINE Confirmed By: SYD TANG MD
[2024-11-10] MEDS: Lorazepam 2 MG/ML WCH Syringe 1 MG IV (11:01)
[2024-11-10] MEDS: Ketorolac 30 MG/ML Syringe IV (11:01)
--- NOTE | 2024-11-10 11:01 | ED.VIS.CHEST ---
HPI History of Present Illness Chief Complaint: Chest Pain Narrative Narrative: Chief complaint and HPI: Chest pain. History taken by patient as well as medical record. I reviewed the GI notes from Dr. Martinez. 29-year-old female with past medical history of chronic epigastric pain, previous heroin abuse not on Suboxone, treated hepatitis C, migraines, depression, tobacco abuse presents for evaluation of chest pain. Onset of chest pain prior to arrival. Patient states that she was getting into her car when she developed midsternal chest pain. She describes it as burning and tightness. She is very anxious during examination and hyperventilating. She states that she has chronic abdominal pain as well as weight loss. She follows with GI. States that she recently had lesions found in her pelvis in which she is getting ultrasounds performed. Currently denying any abdominal pain, fever, chills, URI symptoms, shortness of breath, cough, nausea, vomiting. Denies any recent surgery or travel. Denies any bilateral lower extremity swelling or pain. States she has had a tubal ligation and therefore she cannot be . On chart review, she had a pelvic/transvaginal ultrasound in September that showed questionable solid lesions in both ovaries recommended following up with gynecology. Review of systems: See HPI Medications: As listed on the chart Allergies: As listed on the chart PFSH: Per chart Vital signs: As listed on the chart. Reviewed. Physical exam: Gen: A&O x3, anxious moving around constantly in the bed Head: Normocephalic, atraumatic Eyes: No sclera icterus, conjunctiva clear, PERRL ENT: Moist mucous membranes Neck: Trachea midline, No JVD CV: RRR, no murmurs, no peripheral edema Resp: Lungs CTA BL, no w/r/c, hyperventilating GI: Abd soft, non-distended, non-tender, no r/r/g Musc: Full ROM, no deformity Skin: Warm, dry Neuro: Alert, oriented, grossly intact, sensation intact Psych: Anxious [facility] Medical History Nausea & vomiting Wears contact lenses Marijuana use Easy bruising Migraine headache Syncope Seizures History of ulceration Gastric reflux Smoker Hepatitis C test positive H/O emotional problems Alcohol abuse Depression affecting Positive urine drug screen Anemia Herpes Tobacco abuse complicated by subutex maintenance, antepartum History of drug abuse Home Medications ?Medication ?Instructions ?Recorded ?Last Taken ?Type ursodiol 300 mg capsule 300 mg PO BID bile acid #60 caps 07/03/24 Unknown Rx famotidine 40 mg tablet 40 mg PO QHS #30 tabs 10/23/24 Unknown Rx lansoprazole 30 mg capsule,delayed 30 mg PO BID #60 caps 10/23/24 Unknown Rx release ondansetron 8 mg disintegrating 8 mg PO Q12H PRN nausea and 10/29/24 Unknown Rx tablet vomiting #30 tabs Allergy/AdvReac Type Severity Reaction Status Date / Time clindamycin Allergy Hives Verified 11/10/24 10:15 diphenhydramine HCl (From Allergy Hives Verified 11/10/24 10:15 Benadryl) Penicillins Allergy Hives Verified 11/10/24 10:15 Family History Other Alcoholism Anxiety Arthritis Cancer Cervical cancer Depression Diabetes Endometriosis Mental disorder Ovarian cancer Psychiatric care Seizures Thyroid disorder Surgical History History of esophagogastroduodenoscopy (EGD) History of cholecystectomy History of Social History household members: family housing: house number of children: 2 Smoking Status: Current every day smoker tobacco type: cigarettes alcohol intake: former substance use type: former substance user Date of last use: 05/2020 what type of physical activity do you participate in: none do you feel safe at home: Yes EXAM Physical Exam Const Vital Signs: 11/10/24 10:12 11/10/24 10:41 11/10/24 11:09 Temperature 96.4 F L Temperature Source Oral Pulse Rate 80 51 L Respiratory Rate 30 H 12 Respiratory Effort Normal Non-Labored Respiratory Pattern Normal Blood Pressure 128/46 H 116/64 Blood Pressure Mean 73 81 Pulse Ox 100 Oxygen Delivery Method Room Air Room Air 11/10/24 12:00 11/10/24 12:18 11/10/24 13:00 Temperature Temperature Source Pulse Rate 56 L 55 L 55 L Respiratory Rate 14 14 15 Respiratory Effort Respiratory Pattern Blood Pressure 108/58 L 108/58 L 106/69 Blood Pressure Mean 74 73 80 Pulse Ox 100 96 99 Oxygen Delivery Method Room Air 11/10/24 14:00 11/10/24 14:57 11/10/24 16:00 Temperature Temperature Source Pulse Rate 56 L 42 L 64 Respiratory Rate 13 16 Respiratory Effort Respiratory Pattern Blood Pressure 105/67 117/72 106/55 L Blood Pressure Mean 79 87 72 Pulse Ox 99 20 100 Oxygen Delivery Method Room Air Room Air 11/10/24 17:00 Temperature Temperature Source Pulse Rate 54 L Respiratory Rate 16 Respiratory Effort Respiratory Pattern Blood Pressure 95/78 Blood Pressure Mean 83 Pulse Ox 100 Oxygen Delivery Method Room Air MDM MDM MDM Narrative Medical decision making narrative: 29-year-old female with past medical history of chronic epigastric pain, previous heroin abuse not on Suboxone, treated hepatitis C, migraines, depression, tobacco abuse presents for evaluation of chest pain. History taken by patient as well as medical record, see HPI. Onset of chest pain prior to arrival. Patient states that she was getting into her car when she developed midsternal chest pain. She describes it as burning and tightness. She is very anxious during examination and hyperventilating. Differential diagnosis includes but is not limited to GERD, panic attack, myofascial spasm, PE, ACS, substance abuse, gastritis, PUD, pancreatitis, liver disease. Ativan, Pepcid, Toradol ordered for symptoms. EKG and chest x-ray reviewed see below. Laboratory workup ordered including chest x-ray. CBC without leukocytosis or anemia. Platelets unremarkable. D-dimer unremarkable. CMP unremarkable except for mild AST elevation of 45. Lipase unremarkable. Serum negative. Troponin 12. Urine drug screen positive for buprenorphine although patient states that she is not taking this. Positive for cannabis. On reevaluation, patient states her chest pain has resolved. She is now calm in the room and no longer hyperventilating. Vitals stable. Despite patient's symptoms resolved, will still obtain delta troponin to rule out ACS. There was a delay in the patient's care in the emergency department secondary to troponin taking a while to resolve. Lab received multiple phone calls by myself as well as nursing. States that they had an issue with their machine. Repeat troponin reported to be in the thousands. Patient not endorsing chest pain at this time and given that her original troponin was normal and there was an issue with the machine, concern is for possible lab error. Troponin repeated. Patient was updated of the plan and confirmed understanding. Repeat troponin 1210. Concern is for NSTEMI. Repeat EKG obtained with normal sinus rhythm without ST elevation. Concern is for NSTEMI. Cardiology consulted and patient was discussed with Dr. Patel. He reviewed the EKGs with me in person and agrees that concern is for NSTEMI. Agrees with aspirin and heparin drip. Plan will be for admission with echocardiogram and cardiac cath tomorrow. Recommended nitroglycerin drip if patient still endorses pain. Patient admitted to the hospitalist service. I did speak with the hospitalist about starting nitroglycerin drip however per their recommendations hold off for now. Patient updated of the results and the plan. She is currently endorsing some mild chest pain. Will give nitro sublingual. EKG: Interpreted by me/EM physician: EKG shows normal sinus rhythm with nonspecific ST changes in V1 and V2. Heart rate 62. Repeat EKG shows normal sinus rhythm without any ST elevation. Heart rate 79. Nonspecific ST changes resolved. Diagnostic: Interpreted by me/EM physician: Chest x-ray without effusion, cardiomegaly, pneumothorax, pneumonia. Impression: 1. NSTEMI 2. AST transaminitis 3. Marijuana abuse Lab Data Labs: Laboratory Results - last 24 hr 11/10/24 11/10/24 11/10/24 11:05 11:35 13:00 WBC 7.8 RBC 4.35 Hgb 13.4 Hct 40.0 MCV 92.0 MCH 30.8 MCHC 33.5 RDW Std Deviation 43.1 RDW Coeff of Donnell 12.8 Plt Count 301 MPV 9.9 Immature Gran % (Auto) 0.100 Neut % (Auto) 52.5 Lymph % (Auto) 38.9 Vigo % (Auto) 6.1 Eos % (Auto) 1.8 Baso % (Auto) 0.6 Absolute Neuts (auto) 4.1 Absolute Lymphs (auto) 3.04 Nucleated RBC % 0 PT INR APTT D-Dimer Quant (PE/DVT) 0.43 Sodium 138 Potassium 4.4 Chloride 102 Carbon Dioxide 21.0 Anion Gap 15 BUN 14 Creatinine 0.95 Estim Creat Clear Calc 69.11 Est GFR (MDRD) Non-Af 84 BUN/Creatinine Ratio 15.0 Glucose 122 H Calcium 9.8 Total Bilirubin 0.34 AST 45 H ALT 29 Alkaline Phosphatase 48 Troponin T High Sens 12 Troponin T Hi Sens 2 Hr Cancelled Total Protein 7.9 Albumin 4.7 Globulin 3.2 Albumin/Globulin Ratio 1.5 Lipase 40 Serum , Qual NEGATIVE Urine Opiates Screen NEGATIVE U Buprenorphine Qual PRESUMPTIVE POSITIVE Ur Oxycodone Screen NEGATIVE Urine Methadone Screen NEGATIVE Urine Fentanyl Screen NEGATIVE Ur Barbiturates Screen NEGATIVE Ur Phencyclidine Scrn NEGATIVE Ur Amphetamines Screen NEGATIVE U Benzodiazepines Scrn NEGATIVE Urine Cocaine Screen NEGATIVE U Cannabinoids Screen PRESUMPTIVE POSITIVE 11/10/24 11/10/24 14:30 17:00 WBC RBC Hgb Hct MCV MCH MCHC RDW Std Deviation RDW Coeff of Donnell Plt Count MPV Immature Gran % (Auto) Neut % (Auto) Lymph % (Auto) Vigo % (Auto) Eos % (Auto) Baso % (Auto) Absolute Neuts (auto) Absolute Lymphs (auto) Nucleated RBC % PT 13.9 INR 1.1 APTT 26.8 D-Dimer Quant (PE/DVT) Sodium Potassium Chloride Carbon Dioxide Anion Gap BUN Creatinine Estim Creat Clear Calc Est GFR (MDRD) Non-Af BUN/Creatinine Ratio Glucose Calcium Total Bilirubin AST ALT Alkaline Phosphatase Troponin T High Sens 1210 H* D Troponin T Hi Sens 2 Hr Total Protein Albumin Globulin Albumin/Globulin Ratio Lipase Serum , Qual Urine Opiates Screen U Buprenorphine Qual Ur Oxycodone Screen Urine Methadone Screen Urine Fentanyl Screen Ur Barbiturates Screen Ur Phencyclidine Scrn Ur Amphetamines Screen U Benzodiazepines Scrn Urine Cocaine Screen U Cannabinoids Screen Radiography Diagnostic Testing: Clinical Impression(s) from Imaging Studies Chest X-Ray 11/10/24 11:35 IMPRESSION: NEGATIVE CHEST Reading Location: [id number] Discharge Plan Disposition Disposition: Acute Care Hospital [facility] Discharge Date/Time: 11/10/24 17:37
--- NOTE | 2024-11-10 11:35 | RAD_ITS ---
PROCEDURE: CHEST PA AND LATERAL 11/10/2024 REASON FOR EXAM: CHEST PAIN TECHNIQUE: CHEST PA AND LATERAL COMPARISON: None FINDINGS: Hardware: None Heart: The heart size is normal. Mediastinum: The mediastinal contour is unremarkable. Lungs: The lungs are clear. Bones: The bones are unremarkable. RAD/Chest PA and Lateral IMPRESSION: NEGATIVE CHEST Reading Location: [place] [id number]
[2024-11-10 11:37] LABS: Hematocrit 40.0 % (37-47); Hemoglobin 13.4 g/dL (12.0-15.0); Immature Granulocytes Count 0.010 X10^3/uL (0.0-0.0); Mean Corp Hgb Conc 33.5 g/dL (32-36); Mean Corpuscular Volume 92.0 fL (81-99); Mean Platelet Vol. 9.9 fl (6.2-12.0); NRBC Flagged by Analyzer 0 % (0-5); Platelet Count 301 K/mm3 (150-450); RBC Distribution Width CV 12.8 % (11.6-14.6); RBC Distribution Width SD 43.1 fl (35.1-43.9); Red Blood Count 4.35 M/mm3 (4.2-5.4); White Blood Count 7.8 K/mm3 (4.4-11.0)
[2024-11-10] MEDS: Famotidine 200 MG/20 ML MDV 20 MG in 0.9% Normal Saline (Pres. free 8 ML 300 MG IV (11:48)
[2024-11-10 11:49] LABS: D-Dimer Quantitative (DVT/PE) 0.43 FEU/ug/m (0.27-0.49)
[2024-11-10 11:58] LABS: Internal QC Validated? YES +Cl - CLEAR BKGD; Pregnancy, Serum, hCG Quali. NEGATIVE Negative; Record Kit Lot#, Serum Preg. 0000947241
[2024-11-10 12:28] LABS: Lipase 40 U/L (13-75)
[2024-11-10 12:41] LABS: Troponin T High Sensitivity 12 ng/L (<=14)
[2024-11-10 12:42] LABS: AST(SGOT) 45 U/L (<=31); Alanine Aminotransfer ALT/SGPT 29 U/L (<=34); Albumin, Serum 4.7 g/dL (3.5-5.0); Alkaline Phosphatase 48 U/L (35-104); Anion Gap 15 (5-15); BUN 14 mg/dL (4-19); BUN/Creat Ratio 15.0 RATIO (10-20); Calcium,Total 9.8 mg/dL (7.6-11.0); Carbon Dioxide 21.0 mmol/L (21.0-32.0); Chloride 102 mmol/L (98-108); Estimated Creatinine Clearance 69.11 ml/min (50-250); Globulin 3.2 g/dL (2.2-4.2); Glucose 122 mg/dL (70-99); Potassium 4.4 mmol/L (3.3-5.1)
[2024-11-10 14:05] LABS: Barbiturate Urine NEGATIVE (< 200 ng/mL); Benzodiazepine Urine NEGATIVE (< 200 ng/mL); PCP Urine NEGATIVE (< 25 ng/mL); THC Urine PRESUMPTIVE POSITIVE (< 50 ng/mL)
[2024-11-10 15:40] LABS: Troponin T High Sensitivity 1210 ng/L (<=14)
--- NOTE | 2024-11-10 15:43 | EKG12_ITS ---
Test Reason : REPEAT Blood Pressure : */* mmHG Vent. Rate : 79 BPM Atrial Rate : 79 BPM P-R Int : 168 ms QRS Dur : 86 ms QT Int : 404 ms P-R-T Axes : 69 112 49 degrees QTcB Int : 463 ms Normal sinus rhythm Right axis deviation Abnormal ECG Confirmed by SYD TANG MD ([id number]), manuscript editor DOMINGO VALE ([id number]) on 11/11/2024 8:25:38 AM Referred By: Confirmed By: SYD TANG MD
[2024-11-10] MEDS: Heparin Injection (Vial) 5,000 UNIT/ML VIAL 3500 UNIT IV (16:53)
[2024-11-10] MEDS: HEPARIN/D5w 25,000 UNITS 25,000 UNITS/250 ML IV.SOLN. 7 UNITS CONT INF (17:07)
--- NOTE | 2024-11-10 17:10 | CON.PCM.CA_ITS ---
Documented by User: Dr. Ivan Patel MD 11/10/24 17:19 Assessment & Plan Assessment/Plan (1) History of drug abuse: (2) Acute non-ST elevation myocardial infarction (NSTEMI): PLAN: 29-year-old patient presented with symptoms of retrosternal chest pain Some radiation to the jaw. Had evaluation in the ED by EKG which showed T wave inversion in V1 V2 Subsequent evaluation with lab result D-dimer within normal Second set of troponin was significant elevated more than 1000./High sensitive troponin T Cardiac care plan; Patient had a history of drug abuse Tested negative for drugs, this admission She also has a tubal ligation. Cardiac exam essentially normal I discussed cardiac care plan which will include admission to progressive care unit started on heparin patient was given aspirin in the ED Nitroglycerin IV titrate with symptoms of chest pain. Echocardiogram in the morning to assess LV function. Continue to monitor cardiac biomarkers Patient will be scheduled for cardiac cath tomorrow by Dr. 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 HPI Consult Data Date of Consult: 11/10/24 HPI Narrative Reason for Consultation: Non-STEMI HPI Narrative: REJI LOPEZ, is a 29 F who presents [facility] Medical History Ovarian cyst Nausea & vomiting Wears contact lenses Marijuana use Easy bruising Migraine headache Syncope Seizures History of ulceration Gastric reflux Smoker Hepatitis C test positive H/O emotional problems Alcohol abuse Depression affecting Positive urine drug screen Anemia Herpes Tobacco abuse complicated by subutex maintenance, antepartum History of drug abuse Home Medications ?Medication ?Instructions ?Recorded ?Last Taken ?Type lansoprazole 30 mg capsule,delayed 30 mg PO BID #60 ca ps 10/23/24 Unknown Rx release acetaminophen 500 mg tablet 1,000 mg (2 x 500 mg) PO Q 8 PRN 11/11/24 Unknown Rx Pain #0 tabs carvedilol 3.125 mg tablet 3.125 mg PO BID #180 tabs 0 11/14/24 Unknown Rx losartan 25 mg tablet 25 mg PO DAILY #90 tabs 11/04 05/31 Unknown Rx famotidine 40 mg tablet 40 mg PO QHS #90 tabs Unknown Rx ondansetron 8 mg disintegrating 8 mg PO Q12H PRN nause a and 11/19/24 Unknown Rx tablet vomiting #30 tabs Allergy/AdvReac Type Severity Reaction Status Date / Time clindamycin Allergy Hives Verified 11/21/24 13:42 diphenhydramine HCl (From Allergy Hives Verified 11/21/24 13:42 Benadryl) Penicillins Allergy Hives Verified 11/21/24 13:42 Family History Other Alcoholism Anxiety Arthritis Cancer Cervical cancer Depression Diabetes Endometriosis Mental disorder Ovarian cancer Psychiatric care Seizures Thyroid disorder Surgical History History of esophagogastroduodenoscopy (EGD) History of cholecystectomy History of Social History household members: family housing: house number of children: 2 Smoking Status: Current every day smoker tobacco type: cigarettes alcohol intake: former substance use type: former substance user Date of last use: 05/2020 what type of physical activity do you participate in: none do you feel safe at home: Yes Physical Exam Cardio Cardio Narrative: Patient seen and evaluated at bedside in the ED Family were at bedside as well as medical team She presented with symptoms of retrosternal chest pain radiating to the jaw monitoring analyst revealed normal sinus rhythm Cardiac exam S1-S2 is regular Chest examination clear to auscultation bilateral. Examination lower extremity no lower extremity edema noted. Objective Data Vital Signs: Vital Signs Temp Pulse Resp BP Pulse Ox O2 Del Method 96.4 F L 64 16 106/55 L 100 Room Air 11/10/24 10:12 11/10/24 16:00 11/10/24 16:00 11/10/24 16:00 11/10/24 16:00 11/10/24 16:00 Oxygen Delivery Method Room Air Weight: 112 lb 3.445 oz Body Mass Index (BMI) 20.5 Intake & Output: Intake and Output for Last 24 Hours 11/08/24 11/09/24 11/10/24 23:59 23:59 23:59 Intake Total Balance Lab / Micro Data 11/10/24 11:05 11/10/24 11:05 Labs: Laboratory Results - last 24 hr 11/10/24 11:05: WBC 7.8, RBC 4.35, Hgb 13.4, Hct 40.0, MCV 92.0, MCH 30.8, MCHC 33.5, RDW Std Deviation 43.1, RDW Coeff of Donnell 12.8, Plt Count 301, MPV 9.9, Immature Gran % (Auto) 0.100, Neut % (Auto) 52.5, Lymph % (Auto) 38.9, Chambers % (Auto) 6.1, Eos % (Auto) 1.8, Baso % (Auto) 0.6, Absolute Neuts (auto) 4.1, Absolute Lymphs (auto) 3.04, Nucleated RBC % 0, D-Dimer Quant (PE/DVT) 0.43, Sodium 138, Potassium 4.4, Chloride 102, Carbon Dioxide 21.0, Anion Gap 15, BUN 14, Creatinine 0.95, Estim Creat Clear Calc 69.11, Est GFR (MDRD) Non-Af 84, BUN/Creatinine Ratio 15.0, Glucose 122 H, Calcium 9.8, Total Bilirubin 0.34, AST 45 H, ALT 29, Alkaline Phosphatase 48, Troponin T High Sens 12, Total Protein 7.9, Albumin 4.7, Globulin 3.2, Albumin/Globulin Ratio 1.5, Lipase 40, Serum , Qual NEGATIVE 11/10/24 11:35: Urine Opiates Screen NEGATIVE, U Buprenorphine Qual PRESUMPTIVE POSITIVE, Ur Oxycodone Screen NEGATIVE, Urine Methadone Screen NEGATIVE, Urine Fentanyl Screen NEGATIVE, Ur Barbiturates Screen NEGATIVE, Ur Phencyclidine Scrn NEGATIVE, Ur Amphetamines Screen NEGATIVE, U Benzodiazepines Scrn NEGATIVE, Urine Cocaine Screen NEGATIVE, U Cannabinoids Screen PRESUMPTIVE POSITIVE 11/10/24 13:00: Troponin T Hi Sens 2 Hr Cancelled 11/10/24 14:30: Troponin T High Sens 1210 H* D Cardiology Labs/Tests 11/10/24 11:05: WBC 7.8, RBC 4.35, Hgb 13.4, Hct 40.0, MCV 92.0, MCH 30.8, MCHC 33.5, Plt Count 301, MPV 9.9, Immature Gran % (Auto) 0.100, Neut % (Auto) 52.5, Lymph % (Auto) 38.9, Chambers % (Auto) 6.1, Eos % (Auto) 1.8, Baso % (Auto) 0.6, Absolute Neuts (auto) 4.1, Nucleated RBC % 0, D-Dimer Quant (PE/DVT) 0.43, Sodium 138, Potassium 4.4, Chloride 102, Carbon Dioxide 21.0, Anion Gap 15, BUN 14, Creatinine 0.95, Est GFR (MDRD) Non-Af 84, BUN/Creatinine Ratio 15.0, G lucose 122 H, Calcium 9.8, Total Bilirubin 0.34 Rhythm: EKG: ECHO: Stress Test: Cardiac Cath: PCI: CT Surgery: Holter monitor: EPS: PPM: CXR: Chest CT Scan: Radiography Diagnostic Testing: Radiology Impression Chest X-Ray 11/10/24 11:35 IMPRESSION: NEGATIVE CHEST Reading Location: [place] [id number] Documented by User: Dr. Huey Edward MD 11/28/24 09:19 Assessment & Plan Assessment/Plan (1) History of drug abuse: (2) Acute non-ST elevation myocardial infarction (NSTEMI): HPI Consult Data Date of Consult: 11/28/24 [facility] Medical History Ovarian cyst Nausea & vomiting Wears contact lenses Marijuana use Easy bruising Migraine headache Syncope Seizures History of ulceration Gastric reflux Smoker Hepatitis C test positive H/O emotional problems Alcohol abuse Depression affecting Positive urine drug screen Anemia Herpes Tobacco abuse complicated by subutex maintenance, antepartum History of drug abuse Home Medications ?Medication ?Instructions ?Recorded ?Last Taken ?Type lansoprazole 30 mg capsule,delayed 30 mg PO BID #60 ca ps 10/23/24 Unknown Rx release acetaminophen 500 mg tablet 1,000 mg (2 x 500 mg) PO Q 8 PRN 11/11/24 Unknown Rx Pain #0 tabs carvedilol 3.125 mg tablet 3.125 mg PO BID #180 tabs 0 11/14/24 Unknown Rx losartan 25 mg tablet 25 mg PO DAILY #90 tabs 11/04 05/31 Unknown Rx famotidine 40 mg tablet 40 mg PO QHS #90 tabs Unknown Rx ondansetron 8 mg disintegrating 8 mg PO Q12H PRN nause a and 11/19/24 Unknown Rx tablet vomiting #30 tabs Allergy/AdvReac Type Severity Reaction Status Date / Time clindamycin Allergy Hives Verified 11/21/24 13:42 diphenhydramine HCl (From Allergy Hives Verified 11/21/24 13:42 Benadryl) Penicillins Allergy Hives Verified 11/21/24 13:42 Family History Other Alcoholism Anxiety Arthritis Cancer Cervical cancer Depression Diabetes Endometriosis Mental disorder Ovarian cancer Psychiatric care Seizures Thyroid disorder Surgical History History of esophagogastroduodenoscopy (EGD) History of cholecystectomy History of Social History household members: family housing: house number of children: 2 Smoking Status: Current every day smoker tobacco type: cigarettes alcohol intake: former substance use type: former substance user Date of last use: 05/2020 what type of physical activity do you participate in: none do you feel safe at home: Yes Risk Stratification Risk Stratification Applicable: No Lab / Micro Data 11/10/24 11:05 11/10/24 11:05
[2024-11-10] MEDS: Nitroglycerin SL (ED/IMG/CATH) 0.4 MG TABLET SL (17:21)
--- NOTE | 2024-11-10 17:22 | EKG12_ITS ---
Test Reason : Blood Pressure : */* mmHG Vent. Rate : 60 BPM Atrial Rate : 60 BPM P-R Int : 108 ms QRS Dur : 90 ms QT Int : 450 ms P-R-T Axes : 43 112 -69 degrees QTcB Int : 450 ms Sinus rhythm with short ID Right axis deviation Possible Right ventricular hypertrophy T wave abnormality, consider inferior ischemia T wave abnormality, consider anterolateral ischemia Abnormal ECG When compared with ECG of 11-Nov-2024 05:50, ID interval has decreased Confirmed by Ulisses Douglas ([id number]), mapping editor MEHRAN DAVIS ([id number]) on 11/25/2024 5:45:45 AM Referred By: NASIR Confirmed By: Ulisses Douglas
--- NOTE | 2024-11-10 17:22 | PCM.HP.STD ---
HPI - General General Date of Admission: 11/10/24 Date of Service: 11/10/24 Chief Complaint: chest pain. HPI Narrative REJI LOPEZ, is a 29 F who presents with chest pain. This is a 29-year-old female with history of drug abuse presents with chest pain today. Was brought to the emergency room where her initial troponins were 12 with then subsequent developed EKG changes with depressed ST segments in V1 and V2. Subsequent troponins came back at 1210. Patient was ordered heparin drip and admission was recommended. Patient has never had any chest pain like this before. The patient's mother was present at bedside stated that she thought was initially a panic attack but noted that the patient's heart rate was normal when she checked the patient's pulse. Patient denies any illicit drug use with exception of marijuana. She denies any methamphetamines or cocaine. Patient's urine drug screen did show presumptive positive for buprenorphine as well as cannabinoids. Patient had been on Brixadi and last received a prescription on February 03, 2024 but has not taken that in months. [facility] Medical History Nausea & vomiting Wears contact lenses Marijuana use Easy bruising Migraine headache Syncope Seizures History of ulceration Gastric reflux Smoker Hepatitis C test positive H/O emotional problems Alcohol abuse Depression affecting Positive urine drug screen Anemia Herpes Tobacco abuse complicated by subutex maintenance, antepartum History of drug abuse Home Medications ?Medication ?Instructions ?Recorded ?Last Taken ?Type ursodiol 300 mg capsule 300 mg PO BID bile acid #60 caps 07/03/24 Unknown Rx famotidine 40 mg tablet 40 mg PO QHS #30 tabs 10/23/24 Unknown Rx lansoprazole 30 mg capsule,delayed 30 mg PO BID #60 caps 10/23/24 Unknown Rx release ondansetron 8 mg disintegrating 8 mg PO Q12H PRN nausea and 10/29/24 Unknown Rx tablet vomiting #30 tabs Allergy/AdvReac Type Severity Reaction Status Date / Time clindamycin Allergy Hives Verified 11/10/24 10:15 diphenhydramine HCl (From Allergy Hives Verified 11/10/24 10:15 Benadryl) Penicillins Allergy Hives Verified 11/10/24 10:15 Family History Other Alcoholism Anxiety Arthritis Cancer Cervical cancer Depression Diabetes Endometriosis Mental disorder Ovarian cancer Psychiatric care Seizures Thyroid disorder Surgical History History of esophagogastroduodenoscopy (EGD) History of cholecystectomy History of Social History household members: family housing: house number of children: 2 Smoking Status: Current every day smoker tobacco type: cigarettes alcohol intake: former substance use type: former substance user Date of last use: 05/2020 what type of physical activity do you participate in: none do you feel safe at home: Yes DESIRAE Roberson Has been losing weight recently. States that she has been using THC (smoking/vaping it or edibles) to try to increase her weight. Denies any diaphoresis, no shortness of breath. All review of systems were negative except as mentioned above in the history of present illness and the other review of systems. Vital Signs Vital Signs Vital Signs: 11/10/24 10:12 11/10/24 10:41 11/10/24 11:09 Temperature 35.8 C L Temperature Source Oral Pulse Rate 80 51 L Respiratory Rate 30 H 12 Respiratory Effort Normal Non-Labored Respiratory Pattern Normal Blood Pressure 128/46 H 116/64 Blood Pressure Mean 73 81 Pulse Ox 100 Oxygen Delivery Method Room Air Room Air 11/10/24 12:00 11/10/24 12:18 11/10/24 13:00 Temperature Temperature Source Pulse Rate 56 L 55 L 55 L Respiratory Rate 14 14 15 Respiratory Effort Respiratory Pattern Blood Pressure 108/58 L 108/58 L 106/69 Blood Pressure Mean 74 73 80 Pulse Ox 100 96 99 Oxygen Delivery Method Room Air 11/10/24 14:00 11/10/24 14:57 11/10/24 16:00 Temperature Temperature Source Pulse Rate 56 L 42 L 64 Respiratory Rate 13 16 Respiratory Effort Respiratory Pattern Blood Pressure 105/67 117/72 106/55 L Blood Pressure Mean 79 87 72 Pulse Ox 99 20 100 Oxygen Delivery Method Room Air Room Air 11/10/24 17:00 11/10/24 17:21 Temperature Temperature Source Pulse Rate 54 L 49 L Respiratory Rate 16 Respiratory Effort Respiratory Pattern Blood Pressure 95/78 95/78 Blood Pressure Mean 83 Pulse Ox 100 Oxygen Delivery Method Room Air Weight Weight: 50.9 kg Body Mass Index (BMI) 20.5 Physical Exam Const alert Constitutional Narrative: anxious. HEENT normocephalic and head/scalp atraumatic Resp normal respiratory effort, no retractions, no use of accessory muscles and clear to auscultation bilaterally Cardio regular rate, regular rhythm, S1 normal heart sound and S2 normal heart sound GI normal to inspection, nondistended, normoactive bowel sounds, soft to palpation, non-tender and non-distended Extremity normal to inspection and full ROM Neuro oriented x3, CN's II-XII intact bilaterally, moves all extremities and no focal motor deficits Sensorium / Orientation: awake, alert, oriented to person and oriented to place Psych affect normal Results Lab / Micro Data Attestation: I reviewed the patient's lab results. 11/10/24 11:05 11/10/24 11:05 Labs: Laboratory Results - last 24 hr 11/10/24 11:05: WBC 7.8, RBC 4.35, Hgb 13.4, Hct 40.0, MCV 92.0, MCH 30.8, MCHC 33.5, RDW Std Deviation 43.1, RDW Coeff of Donnell 12.8, Plt Count 301, MPV 9.9, Immature Gran % (Auto) 0.100, Neut % (Auto) 52.5, Lymph % (Auto) 38.9, [place] % (Auto) 6.1, Eos % (Auto) 1.8, Baso % (Auto) 0.6, Absolute Neuts (auto) 4.1, Absolute Lymphs (auto) 3.04, Nucleated RBC % 0, D-Dimer Quant (PE/DVT) 0.43, Sodium 138, Potassium 4.4, Chloride 102, Carbon Dioxide 21.0, Anion Gap 15, BUN 14, Creatinine 0.95, Estim Creat Clear Calc 69.11, Est GFR (MDRD) Non-Af 84, BUN/Creatinine Ratio 15.0, Glucose 122 H, Calcium 9.8, Total Bilirubin 0.34, AST 45 H, ALT 29, Alkaline Phosphatase 48, Troponin T High Sens 12, Total Protein 7.9, Albumin 4.7, Globulin 3.2, Albumin/Globulin Ratio 1.5, Lipase 40, Serum , Qual NEGATIVE 11/10/24 11:35: Urine Opiates Screen NEGATIVE, U Buprenorphine Qual PRESUMPTIVE POSITIVE, Ur Oxycodone Screen NEGATIVE, Urine Methadone Screen NEGATIVE, Urine Fentanyl Screen NEGATIVE, Ur Barbiturates Screen NEGATIVE, Ur Phencyclidine Scrn NEGATIVE, Ur Amphetamines Screen NEGATIVE, U Benzodiazepines Scrn NEGATIVE, Urine Cocaine Screen NEGATIVE, U Cannabinoids Screen PRESUMPTIVE POSITIVE 11/10/24 13:00: Troponin T Hi Sens 2 Hr Cancelled 11/10/24 14:30: Troponin T High Sens 1210 H* D Imaging Radiology Impression Chest X-Ray 11/10/24 11:35 IMPRESSION: NEGATIVE CHEST Reading Location: [id number] Assessment & Plan Assessment/Plan (1) Acute non-ST elevation myocardial infarction (NSTEMI): PLAN: D-dimer is normal at 0.43. Patient was seen relatively young to have atherosclerotic disease. I would favor this being more of a vasospasm though the patient denies any illicit drug use. And her drug screen was negative for methamphetamines as well as cocaine. Patient has been started on a heparin drip. Patient did receive aspirin in the emergency room and will continue with aspirin on the floor. Given her ongoing pain, will initiate a nitroglycerin drip and make the patient PCU status. Discussed with Dr. Patel, and his plan is for the patient an echocardiogram and plan for cardiac catheterization on the . (2) Weight loss: PLAN: Unintentional. Unclear etiology at this time. The patient has been worked up for this with endoscopies. Will check a TSH not hyperthyroid. Likely the remainder of the workup will need to continue as outpatient. Patient has been having issues with nausea and reflux. I told her I am not sure that this is at all related with her symptoms but I did advise cessation of THC related compounds I recommended the least holding off for a month to see if that improves her symptoms. She said that she would comply. PLAN: Plan Ovarian lesions: Noted on ultrasound from the . 2.4 cm on the right and 2.8 cm on the left. Recommended 2-month follow-up ultrasound or gynecology referral. VTE prophylaxis: Not indicated as patient is already anticoagulated. Discussed with patient's mother at bedside. Charges/Coding Visit Charges Inpatient E&M: 79307 Init Hosp L3
--- NOTE | 2024-11-10 17:44 | ECHOD_ITS ---
Reason For Study Reason For Study: CHEST PAIN Procedure This was a 2D Doppler, Color Flow transthoracic echocardiogram. The study was technically difficult. Exam performed portable in patient room. Left Ventricle Normal LV size. Left ventricular systolic function is normal. The left ventricular ejection fraction is 60 %. Mid- Anterior : Hypokinetic. There are regional wall motion abnormalities as specified. Right Ventricle Normal RV size. Normal systolic function. Atria Normal left atrium. Normal right atrium. Bubble contrast study is negative for PFO/ASD. Mitral Valve Normal mitral valve. Tricuspid Valve Normal tricuspid valve. Aortic Valve Trisinus/trileaflet aortic valve. Pulmonic Valve Normal pulmonic valve. Great Vessels Normal aortic root. The pulmonary artery is normal size. Inferior vena cava collapse with respiration. Pericardium/Pleural No pericardial effusion. Medication Performed a rapid injection of agitated mix of 9 cc saline and 1cc air to assess for atrial septal defect. MMode/2D Measurements & Calculations LVIDd: 5.0 cm IVSd: 0.77 cm LVOT diam: 1.9 cm LVIDs: 2.9 cm LVPWd: 0.71 cm RVDd: 3.1 cm FS: 42.0 % LVOT area: 2.9 cm2 asc Aorta Diam: 2.6 cm LAV(MOD-bp): 20.9 ml LVAd ap4: 21.5 cm2 LAV(MOD-bp) Indexed: 13.9 ml/m2 LVLd ap4: 6.5 cm LAV(MOD-sp2): 17.1 ml EDV(MOD-sp4): 59.5 ml LAV(MOD-sp4): 19.9 ml EDV(sp4-el): 59.9 ml LVAs ap4: 14.6 cm2 LVLs ap4: 5.7 cm ESV(MOD-sp4): 30.5 ml ESV(sp4-el): 32.2 ml EF(MOD-sp4): 48.7 % EF(sp4-el): 46.3 % LVAd ap2: 19.1 cm2 SV(MOD-sp4): 29.0 ml SV(MOD-sp2): 25.6 ml LVLd ap2: 6.4 cm SI(MOD-sp4): 19.2 ml/m2 SI(MOD-sp2): 17.0 ml/m2 EDV(MOD-sp2): 48.0 ml EDV(sp2-el): 48.8 ml LVAs ap2: 11.6 cm2 LVLs ap2: 5.1 cm ESV(MOD-sp2): 22.4 ml ESV(sp2-el): 22.4 ml EF(MOD-sp2): 53.4 % SV(sp4-el): 27.7 ml Ao sinus diam: 2.[address] Junction: 2.3 cm LA dimension(2D): 2.3 cm LA A4 area: 10.5 cm2 RA A4 area: 6.4 cm2 TAPSE: 2.1 cm Time Measurements MV dec time: 0.21 sec Doppler Measurements & Calculations MV E max agustin: 89.5 cm/sec Lat Peak E' Agustin: 15.3 cm/sec Med Peak E' Agustin: 9.4 cm/sec MV A max agustin: 48.7 cm/sec E/E' lat: 5.9 E/E' med: 9.5 MV E/A: 1.8 MV dec slope: 424.0 cm/sec2 Ao V2 max: 102.7 cm/sec LV V1 max: 94.3 cm/sec Ao max P.2 mmHg LV V1 max P.6 mmHg Ao V2 mean: 74.2 cm/sec LV V1 mean P.2 mmHg Ao mean P.4 mmHg LV V1 mean: 72.3 cm/sec Ao V2 VTI: 24.8 cm LV V1 VTI: 24.6 cm AV (velocity ratio): 0.99 RUI(I,D): 2.9 cm2 RUI(V,D): 2.7 cm2 SV(LVOT): 72.1 ml PA V2 max: 91.7 cm/sec TR max agustin: 212.5 cm/sec TR max P.1 mmHg ECHO/Echo Complete Interpretation Summary Bubble contrast study is negative for PFO/ASD. Normal LV size. Left ventricular systolic function is normal. The left ventricular ejection fraction is 60 %. Mid-Anterior : Hypokinetic There are regional wall motion abnormalities as specified. Ordering Physician: Roman Gunter Performed By: Binta Cage RDCS
[2024-11-10 17:51] LABS: Prothrombin Time (Protime)PT. 13.9 SECONDS (11.7-14.9)
[2024-11-10 17:53] LABS: Partial Thromboplast Time 26.8 Seconds (24.1-36.2)
[2024-11-10] MEDS: 0.9% Saline Lock 10 ML Syringe IV ×2 (18:32→19:50)
[2024-11-10] MEDS: Nitroglycerin Infusion 250 ML 3 MG IV (18:45)
[2024-11-11] VITALS (15 sets, daily range): BP systolic 90–116; BP diastolic 53–75; PULSE 41–72; RESP 12–21; TEMP 36.6–36.8; O2SAT 93–100
[2024-11-11 00:27] LABS: Partial Thromboplast Time 111.4 Seconds (24.1-36.2)
[2024-11-11] MEDS: 0.9% Saline Lock 10 ML Syringe IV ×3 (00:32→12:40)
[2024-11-11] MEDS: Aspirin E.C. 81 MG Tablet PO (05:40)
--- NOTE | 2024-11-11 05:55 | EKG12_ITS ---
Test Reason : HEART CATH Blood Pressure : */* mmHG Vent. Rate : 44 BPM Atrial Rate : 44 BPM P-R Int : 164 ms QRS Dur : 90 ms QT Int : 506 ms P-R-T Axes : 85 118 -66 degrees QTcB Int : 432 ms Marked sinus bradycardia Right axis deviation Pulmonary disease pattern Possible Inferior infarct , age undetermined Abnormal ECG When compared with ECG of 10-Nov-2024 20:50, MANUAL COMPARISON REQUIRED DATA IS UNCONFIRMED Confirmed by CLYDE LOBO, SYD ([id number]), pictures editor DOMINGO VALE ([id number]) on 11/12/2024 7:16:32 AM Referred By: Confirmed By: SYD TANG MD
--- NOTE | 2024-11-11 08:35 | PCM.PN.HOSP ---
Reason for Visit Reason for Visit: Diagnoses Non-ST elevation (NSTEMI) myocardial infarction (11/10/24) Abnormal weight loss (11/10/24) Subjective Subjective Feeling well. Objective Data Objective Data Vital Signs: Vital Signs Temp Pulse Resp BP Pulse Ox O2 Del Method 36.4 C L 48 L 12 109/64 100 Room Air 11/10/24 17:50 11/11/24 06:00 11/11/24 06:00 11/11/24 06:00 11/11/24 06:00 11/11/24 06:00 Oxygen Delivery Method Room Air Weight: 51.71 kg Body Mass Index (BMI) 20.8 Intake & Output: Intake and Output for Last 24 Hours 11/09/24 11/10/24 11/11/24 23:59 23:59 23:59 Intake Total 362.75 / 365.75 92.35 / 92.35 Balance 362.75 / 365.75 92.35 / 92.35 Lab / Micro Data 11/10/24 11:05 11/10/24 11:05 Labs: Laboratory Results - last 24 hr 11/10/24 11:05: WBC 7.8, RBC 4.35, Hgb 13.4, Hct 40.0, MCV 92.0, MCH 30.8, MCHC 33.5, RDW Std Deviation 43.1, RDW Coeff of Donnell 12.8, Plt Count 301, MPV 9.9, Immature Gran % (Auto) 0.100, Neut % (Auto) 52.5, Lymph % (Auto) 38.9, [place] % (Auto) 6.1, Eos % (Auto) 1.8, Baso % (Auto) 0.6, Absolute Neuts (auto) 4.1, Absolute Lymphs (auto) 3.04, Nucleated RBC % 0, D-Dimer Quant (PE/DVT) 0.43, Sodium 138, Potassium 4.4, Chloride 102, Carbon Dioxide 21.0, Anion Gap 15, BUN 14, Creatinine 0.95, Estim Creat Clear Calc 69.11, Est GFR (MDRD) Non-Af 84, BUN/Creatinine Ratio 15.0, Glucose 122 H, Calcium 9.8, Total Bilirubin 0.34, AST 45 H, ALT 29, Alkaline Phosphatase 48, Troponin T High Sens 12, Total Protein 7.9, Albumin 4.7, Globulin 3.2, Albumin/Globulin Ratio 1.5, Lipase 40, Serum , Qual NEGATIVE 11/10/24 11:35: Urine Opiates Screen NEGATIVE, U Buprenorphine Qual PRESUMPTIVE POSITIVE, Ur Oxycodone Screen NEGATIVE, Urine Methadone Screen NEGATIVE, Urine Fentanyl Screen NEGATIVE, Ur Barbiturates Screen NEGATIVE, Ur Phencyclidine Scrn NEGATIVE, Ur Amphetamines Screen NEGATIVE, U Benzodiazepines Scrn NEGATIVE, Urine Cocaine Screen NEGATIVE, U Cannabinoids Screen PRESUMPTIVE POSITIVE 11/10/24 13:00: Troponin T Hi Sens 2 Hr Cancelled 11/10/24 14:30: Troponin T High Sens 1210 H* D 11/10/24 17:00: PT 13.9, INR 1.1, APTT 26.8 11/10/24 23:33: APTT 111.4 H* 11/11/24 06:05: TSH 0.303 Radiography Diagnostic Testing: Radiology Impression Chest X-Ray 11/10/24 11:35 IMPRESSION: NEGATIVE CHEST Reading Location: [place] [address] Physical Exam Const alert and no apparent distress Resp normal respiratory effort and no retractions Assessment & Plan Assessment/Plan (1) Acute non-ST elevation myocardial infarction (NSTEMI): PLAN: D-dimer is normal at 0.43. Patient was seen relatively young to have atherosclerotic disease. I would favor this being more of a vasospasm though the patient denies any illicit drug use. And her drug screen was negative for methamphetamines as well as cocaine. Cardiac catheterization today showed EF 35% with anterior hypokinesis that was moderate. Consistent with Takotsubo cardiomyopathy. Patient has since been started on carvedilol 3.12 mg twice daily and losartan 25 mg daily. Patient advised to monitor fluid intake as well as sodium intake. Patient follow-up with cardiology. Echo performed, read currently pending. (2) Weight loss: PLAN: Unintentional. Unclear etiology at this time. The patient has been worked up for this with endoscopies. Will check a TSH not hyperthyroid. Likely the remainder of the workup will need to continue as outpatient. Patient has been having issues with nausea and reflux. I told her I am not sure that this is at all related with her symptoms but I did advise cessation of THC related compounds I recommended the least holding off for at least a month to see if that improves her symptoms. Patient expressed that she is not convinced that the marijuana that she ingested is contributing to her symptoms. I told her that I am not sure but I think it is reasonable to trial a period where she is not consuming any THC related compounds. PLAN: Plan Ovarian lesions: Noted on ultrasound from the 19th. 2.4 cm on the right and 2.8 cm on the left. Recommended 2-month follow-up ultrasound or gynecology referral. VTE prophylaxis: Not indicated as patient is already anticoagulated. Discussed with the patient's mother at bedside. Charges/Coding Visit Charges Inpatient E&M: 99079 Subs Hosp L2
--- NOTE | 2024-11-11 09:13 | PCM.PN.CARD ---
Subjective Subjective Patient seen and evaluated. Doing well underwent cardiac catheterization today Objective Data Vital Signs: Vital Signs Temp Pulse Resp BP Pulse Ox O2 Del Method 97.5 F L 48 L 12 109/64 100 Room Air 11/10/24 17:50 11/11/24 06:00 11/11/24 06:00 11/11/24 06:00 11/11/24 06:00 11/11/24 06:00 Oxygen Delivery Method Room Air Weight: 114 lb Body Mass Index (BMI) 20.8 Intake & Output: Intake and Output for Last 24 Hours 11/09/24 11/10/24 11/11/24 23:59 23:59 23:59 Intake Total 362.75 / 365.75 92.35 / 92.35 Balance 362.75 / 365.75 92.35 / 92.35 Lab / Micro Data 11/10/24 11:05 11/10/24 11:05 Labs: Laboratory Results - last 24 hr 11/10/24 11:05: WBC 7.8, RBC 4.35, Hgb 13.4, Hct 40.0, MCV 92.0, MCH 30.8, MCHC 33.5, RDW Std Deviation 43.1, RDW Coeff of Donnell 12.8, Plt Count 301, MPV 9.9, Immature Gran % (Auto) 0.100, Neut % (Auto) 52.5, Lymph % (Auto) 38.9, [place] % (Auto) 6.1, Eos % (Auto) 1.8, Baso % (Auto) 0.6, Absolute Neuts (auto) 4.1, Absolute Lymphs (auto) 3.04, Nucleated RBC % 0, D-Dimer Quant (PE/DVT) 0.43, Sodium 138, Potassium 4.4, Chloride 102, Carbon Dioxide 21.0, Anion Gap 15, BUN 14, Creatinine 0.95, Estim Creat Clear Calc 69.11, Est GFR (MDRD) Non-Af 84, BUN/Creatinine Ratio 15.0, Glucose 122 H, Calcium 9.8, Total Bilirubin 0.34, AST 45 H, ALT 29, Alkaline Phosphatase 48, Troponin T High Sens 12, Total Protein 7.9, Albumin 4.7, Globulin 3.2, Albumin/Globulin Ratio 1.5, Lipase 40, Serum , Qual NEGATIVE 11/10/24 11:35: Urine Opiates Screen NEGATIVE, U Buprenorphine Qual PRESUMPTIVE POSITIVE, Ur Oxycodone Screen NEGATIVE, Urine Methadone Screen NEGATIVE, Urine Fentanyl Screen NEGATIVE, Ur Barbiturates Screen NEGATIVE, Ur Phencyclidine Scrn NEGATIVE, Ur Amphetamines Screen NEGATIVE, U Benzodiazepines Scrn NEGATIVE, Urine Cocaine Screen NEGATIVE, U Cannabinoids Screen PRESUMPTIVE POSITIVE 11/10/24 13:00: Troponin T Hi Sens 2 Hr Cancelled 11/10/24 14:30: Troponin T High Sens 1210 H* D 11/10/24 17:00: PT 13.9, INR 1.1, APTT 26.8 11/10/24 23:33: APTT 111.4 H* 11/11/24 06:05: TSH 0.303 Cardiology Labs/Tests 11/10/24 11:05: WBC 7.8, RBC 4.35, Hgb 13.4, Hct 40.0, MCV 92.0, MCH 30.8, MCHC 33.5, Plt Count 301, MPV 9.9, Immature Gran % (Auto) 0.100, Neut % (Auto) 52.5, Lymph % (Auto) 38.9, [place] % (Auto) 6.1, Eos % (Auto) 1.8, Baso % (Auto) 0.6, Absolute Neuts (auto) 4.1, Nucleated RBC % 0, D-Dimer Quant (PE/DVT) 0.43, Sodium 138, Potassium 4.4, Chloride 102, Carbon Dioxide 21.0, Anion Gap 15, BUN 14, Creatinine 0.95, Est GFR (MDRD) Non-Af 84, BUN/Creatinine Ratio 15.0, Glucose 122 H, Calcium 9.8, Total Bilirubin 0.34 11/10/24 17:00: PT 13.9, INR 1.1, APTT 26.8 11/10/24 23:33: APTT 111.4 H* Rhythm: EKG: ECHO: Stress Test: Cardiac Cath: PCI: CT Surgery: Holter monitor: EPS: PPM: CXR: Chest CT Scan: Radiography Diagnostic Testing: Radiology Impression Chest X-Ray 11/10/24 11:35 IMPRESSION: NEGATIVE CHEST Reading Location: [place] [address] Physical Exam Const alert, oriented x3 and no apparent distress General Appearance: cooperative HEENT hearing grossly normal bilaterally Head and Scalp: atraumatic Eyes EOMs intact bilaterally Neck General: normal visual inspection Chest inspection of chest normal and palpation of chest normal Resp normal respiratory effort Auscultation: clear to auscultation bilaterally Cardio regular rate, regular rhythm, S1 normal heart sound and S2 normal heart sound Jugular Venous Distention: JVD GI normal to inspection, nondistended, normoactive bowel sounds Extremity normal capillary refill and no pedal edema Peripheral Pulses: Yes pulses 2+ throughout and femoral pulses present Skin no rashes or lesions noted Neuro oriented x3 and CN's II-XII intact bilaterally Psych Appearance: grossly normal and appropriate Assessment & Plan Assessment/Plan (1) Acute non-ST elevation myocardial infarction (NSTEMI): PLAN: Patient underwent cardiac catheterization demonstrating normal coronary arteries and anterior and apical hypokinesis consistent with Takotsubo cardiomyopathy. Recommend the patient discontinue use of THC and CBD Low-dose beta-caroline Low-dose VINNY inhibitor Aspirin Can be followed up as an outpatient
--- NOTE | 2024-11-11 11:18 | CASEMGMT ---
MICHELE ARAGON Assessment Face to Face with patient for initial transition planning/care coordination assessment. MICHELE ARAGON introduced self and role at [facility], pt voices understanding. Pt is A&Ox4 and is resting comfortably in bed and is calm. Care providers, pharmacy, and demographics verified. Admitting dx: NSTEMI LACE Strata:2 PCP: James Murray Specialists: Kaushal GOLDSTEIN. ENT through [facility] but cannot recall the name Preferred Pharmacy: [facility] Insurance: [employer] / Student Designed Prescription Benefit: Yes LNOK: [facility] ([facility]Meli () Living Arrangements: Pt lives with her SO and 3 kids (Ages 9, 6, & 3) in a single story home with 3 steps to enter ADLs/IADLs: Indep. 6-Click score is 24. Transportation: Self, SO. 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 Inquired if the pt is interested in SW cessation resources. Pt adamantly declines. SW aware. Pt?s goal: Home Plan: home with pt's family once medically ready, anticipate no additional needs. Pt states that she has plenty of support at home and denies further questions, concerns, or needs now. Report given to FIRE LIE[employer]ENANT CM. John Willingham RN, CM
--- NOTE | 2024-11-11 15:05 | PCM.DC.SUM ---
Providers Date of Admission: 11/10/24 Primary Care Physician: Dr. Nando Murray MD Consultations 11/10/24 17:44 Consult: Cardiology Routine Consulting Provider: Ivan Patel Reason for Consult: Chest Pain EMERGENT Consult: No MD Notified: Yes Date Notified: 11/10/24 Time Notified: 17:18 Method of Notification: Verbal Reason For Visit: NSTEMI Diagnosis Discharge Diagnosis (1) Acute non-ST elevation myocardial infarction (NSTEMI): Status: Acute Code(s): I21.4 - Non-ST elevation (NSTEMI) myocardial infarction Plan: D-dimer is normal at 0.43. Patient was seen relatively young to have atherosclerotic disease. I would favor this being more of a vasospasm though the patient denies any illicit drug use. And her drug screen was negative for methamphetamines as well as cocaine. Cardiac catheterization today showed EF 35% with anterior hypokinesis that was moderate. Consistent with Takotsubo cardiomyopathy. Patient has since been started on carvedilol 3.12 mg twice daily and losartan 25 mg daily. Patient advised to monitor fluid intake as well as sodium intake. Patient follow-up with cardiology. Echo today showed apical hypokinesis with an EF 60%. DC home. (2) Weight loss: Status: Acute Code(s): R63.4 - Abnormal weight loss Plan: Unintentional. Unclear etiology at this time. The patient has been worked up for this with endoscopies. Will check a TSH not hyperthyroid. Likely the remainder of the workup will need to continue as outpatient. Patient has been having issues with nausea and reflux. I told her I am not sure that this is at all related with her symptoms but I did advise cessation of THC related compounds I recommended the least holding off for at least a month to see if that improves her symptoms. Patient expressed that she is not convinced that the marijuana that she ingested is contributing to her symptoms. I told her that I am not sure but I think it is reasonable to trial a period where she is not consuming any THC related compounds. Plan Ovarian lesions: Noted on ultrasound from the . 2.4 cm on the right and 2.8 cm on the left. Recommended 2-month follow-up ultrasound or gynecology referral. VTE prophylaxis: Not indicated as patient is already anticoagulated. Discussed with the patient's mother at bedside. Medications at Discharge Home Medications ursodiol 300 mg capsule 300 mg PO BID bile acid #60 caps 07/03/24 famotidine 40 mg tablet 40 mg PO QHS #30 tabs 10/23/24 lansoprazole 30 mg capsule,delayed release 30 mg PO BID #60 caps 10/23/24 ondansetron 8 mg disintegrating tablet 8 mg PO Q12H PRN nausea and vomiting #30 tabs 10/29/24 acetaminophen 500 mg tablet 1,000 mg (2 x 500 mg) PO Q8 PRN Pain #0 tabs 11/11/24 carvedilol 3.125 mg tablet 3.125 mg PO BIDCM #60 tabs 11/11/24 losartan 25 mg tablet 25 mg PO DAILY #30 tabs 11/11/24 Hospital Course Operations None Procedures 2-D Echocardiogram and Cardiac catheterization Summary of Care Provided Minutes Spent on Discharge: 31 Hospital Course: Is a 29-year-old female presents with chest pain. Troponins went up to [address] depressions transiently in V1 and V2. Patient underwent a left heart catheterization that showed EF of 35%, apical hypokinesis but normal coronaries. Echocardiogram showed an EF of 60% with apical hypokinesis. Patient has since been started on carvedilol as well as losartan. Patient has remained stable and will be discharged home. Patient has been having issues in regards to nausea and weight loss. She has had a workup for this before. She does admit to smoking or consuming marijuana containing products. I told her to stop for least a month to see if that improves her symptoms. Weight / BMI Weight Weight: 51.71 kg Body Mass Index (BMI) 20.8 ABG / Lab / Microbiology Data 11/10/24 11:05 11/10/24 11:05 Laboratory: Laboratory Results - last 24 hr 11/10/24 13:00: Troponin T Hi Sens 2 Hr Cancelled 11/10/24 14:30: Troponin T High Sens 1210 H* D 11/10/24 17:00: PT 13.9, INR 1.1, APTT 26.8 11/10/24 23:33: APTT 111.4 H* 11/11/24 06:05: TSH 0.303 Radiography Diagnostic Testing: Radiology Impression Echocardiogram 11/10/24 17:44 Interpretation Summary Bubble contrast study is negative for PFO/ASD. Normal LV size. Left ventricular systolic function is normal. The left ventricular ejection fraction is 60 %. Mid-Anterior : Hypokinetic There are regional wall motion abnormalities as specified. Ordering Physician: Roman Gunter Performed By: Binta Cage RDCS D/C Instructions Discharge Diet: No restrictions DC O2, CPAP, BIPAP Needs Home O2 Discharge instructions: No Meaningful Use Info Meaningful Use Meaningful Use Diagnoses (Choose all that apply): None applicable Ischemic Stroke Statin Dosing Therapy Reference: STATIN DOSE THERAPY REFERENCE: * Patients > 75 years receive moderate or high dose statin therapy. * Patients 75 years or YOUNGER should receive HIGH intensity statin dose unless contraindicated. You will be required to document reason for non-treatment if statin daily dose does not meet guidelines. HIGH DOSE STATIN THERAPY DAILY Atorvastatin > than or = to 40 mg Rosuvastatin > than or = to 20 mg Amlodipine + Atorvastatin > than or = to 2.5/40 mg Ezetimibe + Simvastatin 10/80 mg Simvastatin 80mg Discharge Plan Admission Admit Date/Time: 11/10/24 17:14 Primary Reason for Your Visit: chest pain. Attending Provider: Roman Gunter Primary Care Provider: Nando Murray Consulting Providers: Ivan Patel; Gemma Warren Instructions Additional Instructions / Restrictions: You have a condition called Takotsubo (stress-induced) cardiomyopathy. Area of your heart is little bit weaker but overall your heart is beating properly. You will be on medications to help with that. Would like for you to follow-up with cardiology in the next month and so that they can repeat an echocardiogram (ultrasound of your heart). If you do have further chest pain similar to what you had with this hospitalization, notify your physician or return to the emergency room. You been having weight loss as well as some GI issues. You had a workup but it is not really been identify what was the cause. As we discussed I do recommend avoiding THC (marijuana) containing products for least a month to see if that helps. A month would be long enough to determine if the THC is at all related to your symptoms or not. Discharge Orders/Prescriptions Prescriptions: New acetaminophen 500 mg Tablet 1,000 mg PO Q8 PRN (Reason: Pain) Qty: 0 0RF carvedilol 3.125 mg Tablet 3.125 mg PO BIDCM Qty: 60 0RF losartan 25 mg Tablet 25 mg PO DAILY Qty: 30 0RF Continued ursodiol 300 mg capsule 300 mg PO BID Qty: 60 1RF Rx Instructions: take twice daily with meals lansoprazole 30 mg capsule,delayed release(DR/EC) 30 mg PO BID Qty: 60 1RF famotidine 40 mg tablet 40 mg PO QHS Qty: 30 2RF ondansetron 8 mg tablet,disintegrating 8 mg PO Q12H PRN (Reason: nausea and vomiting) Qty: 30 0RF Referrals / Follow Up: [facility] [Provider Group] - Within 1 Month Nando Murray MD [Primary Care Provider] - Within 2 Weeks Disposition Disposition (needs filled in before D/C Order can be placed): Home, Self Care Charges/Coding Visit Charges Inpatient E&M: 73827 Disch Hosp >30min
--- OUTSIDE RECORDS SUMMARY | 2024-11-13 02:32 | XMS RPT_ITS | CCD ---
Author Organization [facility] Care Team Providers Care Court Messenger Name Role Phone Yecenia Ayon Unavailable Unavailab le Nany, Yecenia Amaya Unavailable Unavailab le Nany, Yecenia Reesee Unavailable Unavailab le Unavailable Unavailable Unavailable NO, PHYSICIAN Primary Care Unavailable TIAGO CANNON Attending Unava ilable Unavailable Primary Care Provider UnavailCeli Mayo MD Primary Care Provider Care Physician, No Primary Primary Care Provider Unavailable Care Physician, No Primary Referring Provider Un available Dr. Merline Santana Attending Provider [phone] Rolando AMPOULE EXAMINER, ELICEO Contreras Attending Provider [phone] Dr. Nyla Richardson Attending Provider Dr. Merline Santana Admit Provider Dr. Merline Santana Other Provider Care Physician, No Primary Primary Care Provider Unavailable Care Physician, No Primary Referring Provider Un available Dr. Merline Santana Attending Provider [phone] Celi Murray MD Primary Care Provider GERRY CANTU Admitting Unavailable GERRY CANTU Attending Unavailable CELI MURRAY Primary Care Unavailab Celi Mclean MD Primary Care Provider Unavailable Primary Care Provider Unavailabl e Unavailable Primary Care Provider Unavailabl e Self, Self Primary Care Provider Unavailabl e Vinnie DAILY Attending Unavailable Vinnie DAILY Referring Unavailable SELF, SELF Referring Unavailable SELF, SELF Primary Care Unavailable Vinnie DAILY Attending Unavailable SELF, SELF Referring Unavailable SELF, SELF Primary Care Unavailable ABIMBOLA, P. ESTUARDO Attending Unavailable SELF, SELF Primary Care Unavailable ABIMBOLA, P. ESTUARDO Referring Unavailable ABIMBOLA, P. ESTUARDO Attending Unavailable SELF, SELF Primary Care Unavailable ABIMBOLA, P. ESTUARDO Referring Unavailable ABIMBOLA, P. ESTUARDO Attending Unavailable SELF, SELF Referring Unavailable SELF, SELF Primary Care Unavailable ABIMBOLA, P. ESTUARDO Attending Unavailable ABIMBOLA, P. ESTUARDO Attending Unavailable ABIMBOLA, P. ESTUARDO Referring Unavailable ABIMBOLA, P. ESTUARDO Referring Unavailable ABIMBOLA, P. ESTUARDO Attending Unavailable SELF, SELF Primary Care Unavailable ABIMBOLA, P. ESTUARDO Referring Unavailable ABIMBOLA, P. ESTUARDO Attending Unavailable SELF, SELF Primary Care Unavailable ABIMBOLA, P. ESTUARDO Referring Unavailable ABIMBOLA, P. ESTUARDO Attending Unavailable SELF, SELF Primary Care Unavailable ABIMBOLA, P. ESTUARDO Referring Unavailable ABIMBOLA, P. ESTUARDO Attending Unavailable SELF, SELF Primary Care Unavailable ABIMBOLA, P. ESTUARDO Referring Unavailable ABIMBOLA, P. ESTUARDO Attending Unavailable SELF, SELF Primary Care Unavailable ABIMBOLA, P. ESTUARDO Attending Unavailable ABIMBOLA, P. ESTUARDO Referring Unavailable SELF, SELF Primary Care Unavailable ABIMBOLA, P. ESTUARDO Attending Unavailable ABIMBOLA, P. ESTUARDO Referring Unavailable SELF, SELF Primary Care Unavailable ABIMBOLA, P. ESTUARDO Attending Unavailable ABIMBOLA, P. ESTUARDO Referring Unavailable SELF, SELF Primary Care Unavailable ABIMBOLA, P. ESTUARDO Attending Unavailable ABIMBOLA, P. ESTUARDO Referring Unavailable SELF, SELF Primary Care Unavailable ABIMBOLA, P. ESTUARDO Attending Unavailable ABIMBOLA, P. ESTUARDO Referring Unavailable ABIMBOLA, P. ESTUARDO Attending Unavailable ABIMBOLA, P. ESTUARDO Referring Unavailable ABIMBOLA, P. ESTUARDO Attending Unavailable ABIMBOLA, P. ESTUARDO Referring Unavailable SELF, SELF Referring Unavailable SELF, SELF Primary Care Unavailable ABIMBOLA, P. ESTUARDO Attending Unavailable SELF, SELF Referring Unavailable SELF, SELF Primary Care Unavailable ABIMBOLA, P. ESTUARDO Attending Unavailable SELF, SELF Primary Care Unavailable ABIMBOLA, P. ESTUARDO Referring Unavailable ABIMBOLA, P. ESTUARDO Attending Unavailable ABIMBOLA, P. ESTUARDO Referring Unavailable SELF, SELF Primary Care Unavailable ABIMBOLA, P. ESTUARDO Attending Unavailable SELF, SELF Primary Care Unavailable ABIMBOLA, P. ESTUARDO Referring Unavailable ABIMBOLA, P. ESTUARDO Attending Unavailable ABIMBOLA, P. ESTUARDO Attending Unavailable ABIMBOLA, P. ESTUARDO Referring Unavailable SELF, SELF Referring Unavailable SELF, SELF Primary Care Unavailable ABIMBOLA, P. ESTUARDO Attending Unavailable SELF, SELF Primary Care Unavailable ABIMBOLA, P. ESTUARDO Referring Unavailable ABIMBOLA, P. ESTUARDO Attending Unavailable SELF, SELF Referring Unavailable SELF, SELF Primary Care Unavailable ABIMBOLA, P. ESTUARDO Attending Unavailable SELF, SELF Primary Care Unavailable ABIMBOLA, P. ESTUARDO Referring Unavailable ABIMBOLA, P. ESTUARDO Attending Unavailable ABIMBOLA, P. ESTUARDO Attending Unavailable ABIMBOLA, P. ESTUARDO Referring Unavailable ABIMBOLA, P. ESTUARDO Referring Unavailable ABIMBOLA, P. ESTUARDO Attending Unavailable ABIMBOLA, P. ESTUARDO Attending Unavailable ABIMBOLA, P. ESTUARDO Referring Unavailable ABIMBOLA, P. ESTUARDO Attending Unavailable SELF, SELF Primary Care Unavailable ABIMBOLA, P. ESTUARDO Referring Unavailable ABIMBOLA, P. ESTUARDO Attending Unavailable ABIMBOLA, P. ESTUARDO Referring Unavailable Celi Murray MD Primary Care Provider Podlogar MANAGER TRANSPORTATION.Amanda CASANOVA Unavailable Kapil MANAGER TRANSPORTATION.Arline CASANOVA Unavailable Dr. Nando Murray MD Primary Care Provider Dr. Donavan Rivera DO Attending Provider Dr. Donavan Rivera DO Emergency Provider Dr. Nando Murray MD Referring Provider Dr. Arik Martinez DO Attending Provider Dr. Arik Martinez DO Other Provider Care Physician, No Primary Referring Provider Un available Merline Busch Attending Provider Medhat ARZOLACShelby Attending Provider Medhat AMPOULE EXAMINERAshleyCShelby Referring Provider Provider, Ed Physician Referring Provider Kianna mathew Provider, Ed Physician Emergency Provider Kianna Gates MANAGER TRANSPORTATION.EDILBERTO, Arline Unavailable CELI MURRAY Primary Care Unavailab CELI Mclean Primary Care Unavailab le EVI KAUFMAN Attending Unavailable CELI MURRAY Referring Unavailab le BURSLEY, CHRISTOPHER B Primary Care Unavailab le BENDARAM, HEIDI CHAPPELL Attending Unavaila ble PODLOGARAMANDA Attending Unavailable ABIDA MURRAYER B Primary Care Unavailab le BURSLEY, RAGHUOPHER B Primary Care Unavailab le PODLOGAR, AMANDA Referring Unavailable BURSLEY, CHRISTOPHER B Primary Care Unavailab le PODLOGAR, AMANDA Referring Unavailable BURSLEY, RAGHUOPHER B Primary Care Unavailab le PODLOGAR, AMANDA Referring Unavailable TREVOR, RAGHUOPHER B Primary Care Unavailab le BURSLEY, CHRISTOPHER B Primary Care Unavailab le BENDARAM, HEIDI CHAPPELL Referring Unavaila ble BURSLEY, ARGHUOPHER B Primary Care Unavailab le BENDARAM, HEIDI CHAPPELL Attending Unavaila ble TREVOR, ABIDAER B Primary Care Unavailab le PODLOGAR, AMANDA Attending Unavailable TREVOR, RAGHUOPHER B Primary Care Unavailab le BURSLEY, CHRISTOPHER B Primary Care Unavailab le BURSLEY, CHRISTOPHER B Primary Care Unavailab le BURSLEY, CHRISTOPHER B Primary Care Unavailab Donavan Yepez Attending Unavailable Bursley, Nando Primary Care Unavailable Bursley, Nando Referring Unavailable Bursley, Nando Primary Care Unavailable Friend, Arik Attending Unavailable Micheleley, Nando Primary Care Unavailable Merline Santana Referring Unavailabl e Merline Santana Attending Unavailabl e Bursley, Nando Primary Care Unavailable Merline Hills Referring Unavailable Merline Hills Attending Unavailable Friend, Arik Consulting Unavailable Bursley, Nando Primary Care Unavailable Bursley, Nando Referring Unavailable Friend, Arik Attending Unavailable Bursley, Nando Primary Care Unavailable Bursley, Nando Referring Unavailable Merline Hills Attending Unavailable Bursley, Nando Primary Care Unavailable Bursley, Nando Referring Unavailable Merline Hills Attending Unavailable Bursley, Nando Primary Care Unavailable Bursley, Nando Referring Unavailable Shelby Meléndez Attending Unavailable Bursley, Nando Primary Care Unavailable Care Physician, No Primary Referring Unava ilable Merline Hills Attending Unavailable Bursley, Nando Primary Care Unavailable Bursley, Nando Referring Unavailable Shelby Meléndez Attending Unavailable Care Physician, No Primary Primary Care Unava ilable Care Physician, No Primary Referring Unava ilable Merline Hills Attending Unavailable Provider, Ed Physician Referring Unavailab evert Murray, Nando Primary Care Unavailable Provider, Ed Physician Attending Unavailab le Trevor, Nando Primary Care Unavailable Barkman, Shelby Referring Unavailable Barkman, Shelby Attending Unavailable Bursley, Nando Primary Care Unavailable Barkman, Shelby Referring Unavailable Barkman, Shelby Attending Unavailable Trevor, Nando Primary Care Unavailable Merline Hills Referring Unavailable Merline Hills Attending Unavailable Trevor LOBO, Dr. Collier Primary Care Provider Dr. Nando Murray MD Referring Provider Provider, Ed Physician Attending Provider Kianna Silva DO, Dr. Chun Emergency Provider Kelvin LOBO, Dr. Menendez Admit Provider Kelvin LOBO, Dr. Menendez Attending Provider Kelvin LOBO, Dr. Menendez Other Provider Dr. Roman uGnter DO Attending Provider Dr. Gemma Warren MD Other Provider Dr. Ivan Patel MD Other Provider Dr. Roman Gunter DO Attending Provider Wagner LOBO, Dr. Arzate Attending Provider Allergies Allergy Classification Reported Allergen(s) Allergy Type Date of Onset Reaction(s) Facility (20 sources) Penicillins; Translations: [PENICILLINS] Propensity to adverse reactions to drug (disorder) 06-19-19 06 Hives, Rash [facility] Repository (20 sources) diphenhydrAMINE; Translations: [DIPHENHYDRAMINE HCL] Drug Allergy 05-28-19 15 Other: See Comments [facility] Work Phone: (20 sources) Clindamycin; Translations: [CLINDAMYCIN] Drug Allergy 09-22-19 22 Rash [facility] (1 source) Clindamycin Drug Allergy 09-19-19 [facility] (1 source) diphenhydrAMINE Drug Allergy 09-19-19 25 [facility] Medications Current Medications Medication Drug Class(es) Dates Sig (Normalized) Sig (Original) acetaminophen 325 mg oral tablet (7 sources) Start: 02-24-2021 650 mg, Oral, EVERY 4 HOURS PRN, Pain Mild (1-3), Pain Mild (1-3) or Fever greater than 100.5 F (38 C), Starting on Barbara 02/24/21 at 1538 Maximum dose of acetaminophen is 4000 mg from all sources in 24 hours. End: 12-11-2022 acetaminophen (TYLENOL EXTRA STRENGTH ORAL) Take 1,000 mg by mouth as needed. 12/11/2022 Discontinued Comment on above: Take 1,000 mg by page th as needed. acyclovir 800 mg oral tablet (20 sources) Herpesvirus Nucleoside Analog DNA Polymerase Inhibitor, Herpes Simplex Virus Nucleoside Analog DNA Polymerase Inhibitor, Herpes Zoster Virus Nucleoside Analog DNA Polymerase Inhibitor Start: 04-14-2023 End: 04-19-2023 take 1 tablet by mouth twice daily acyclovir (ZOVIRAX) 800 mg tablet Take 1 tablet by mouth two times a day for 5 days. 10 tablet 0 04/14/2023 04/19/2023 Active Start: 09-26-2019 End: 02-01-2021 take 1 tablet by mouth three times daily Acyclovir 400 MG tablet Discontinued 400 mg PO THREE TIMES A DAY September 26, 2019 12:00am February 01, 2021 2:49pm infection Start: 02-14-2015 End: 02-16-2015 take 1 tablet by mouth three times daily Acyclovir (Zovirax) 400 MG tablet Discontinued 400 mg PO THREE TIMES A DAY February 14, 2015 12:00am February 16, 2015 10:13pm Comment on above: Take 1 tablet by page th two times a day for 5 days. aluminum hydroxide 40 mg/ml / magnesium hydroxide 40 mg/ml / simethicone 4 mg/ml oral suspension (1 source) Start: 02-25-20 aluminum & magnesium hydroxide-simethicone (MAALOX) 200-200-20 MG/5ML suspension 30 mL benzonatate 100 mg oral capsule (10 sources) Non-narcotic Antitussive Start: 09-11-19 take 1 capsule by mouth three times daily as needed benzonatate (TESSALON PERLE) 100 mg capsule Indications: Viral URI with cough Take 1-2 capsules by mouth three times a day as needed. 320 capsule 09/10/2024 Active buprenorphine 8 mg / naloxone 2 mg sublingual film (20 sources) Partial Opioid Agonist, Opioid Antagonist Start: 07-26-19 End: 07-27-19 buprenorphine 8 mg/naloxone 2 mg (SUBOXONE) SL film Indications: Opioid dependence in remission Place 1 strip under tongue daily for 1 day. 1 strip 1 07/26/2023 Active Start: 06-19-2023 End: 07-26-2023 buprenorphine 2 mg/naloxone 0.5 mg (SUBOXONE) SL film Indications: Opiate withdrawal Place 1 strip under tongue every 12 hours for 9 days. Dissolve under tongue 18 strip 06/19/2023 07/26/2023 Discontinued Start: 04-05-2023 End: 05-03-2023 buprenorphine 2 mg/naloxone 0.5 mg (SUBOXONE) SL film Indications: Opiate withdrawal Place 1 strip under tongue every 12 hours for 2 days. Dissolve under tongue 4 strip 0 04/05/2023 05/03/2023 Discontinued (Reorder) Start: 01-09-2023 buprenorphine 2 mg/naloxone 0.5 mg (SUBOXONE) SL film Indications: Opiate withdrawal Place 1 strip under tongue every 12 hours for 2 days. Dissolve under tongue 4 strip 0 01/09/2023 Active Start: 09-01-2022 buprenorphine 8 mg/naloxone 2 mg (SUBOXONE) SL film DISSOLVE 1 (ONE) FILM UNDER THE TONGUE DAILY 0 09/01/2022 Active Start: 06-27-2019 End: 02-01-2021 Buprenorphine-Naloxone (Subo xone) 8-2 mg film Discontinued 1 {tbl} PO DAILY June 27, 2019 1:00am February 01, 2021 2:49pm withdraw Start: 06-27-2019 End: 02-01-2021 take 1 tablet by mouth once daily Buprenorphine-Naloxone (Suboxone) 8-2 mg film Discontinued 1 TABLET PO DAILY June 27, 2019 1:00am February 01, 2021 2:49pm End: 12-11-2022 buprenorphine-naloxone (ZUBS OLV) 2.9-0.71 mg subl Dissolve 1 tablet under the tongue. 12/11/2022 Discontinued Comment on above: Dissolve 1 tablet un елена the tongue. cephalexin 500 mg oral capsule (1 source) Cephalosporin Antibacterial Start: 03-03-20 End: 03-08-20 take 1 capsule by mouth four times daily cephALEXin (KEFLEX) 500 mg capsule Indications: Dental infection Take 1 capsule by mouth four times daily for 5 days. 20 capsule 03/03/2024 03/08/2024 Active dicyclomine hydrochloride 10 mg oral capsule (1 source) Anticholinergic Start: 02-25-20 dicyclomine (BENTYL) capsule 10 mg docusate sodium 100 mg oral capsule (1 source) Start: 02-26-20 docusate sodium (COLACE) capsule 100 mg doxycycline monohydrate 100 mg oral tablet (2 sources) Tetracycline-class Drug Start: 12-29-19 End: 01-05-20 take 1 tablet by mouth twice daily doxycycline monohydrate 100 mg tablet Take 1 tablet by mouth twice daily for 7 days. 14 tablet 0 12/28/2022 01/04/2023 Active Comment on above: Take 1 tablet by page th twice daily for 7 days. fluconazole 150 mg oral tablet (4 sources) Azole Antifungal Start: 01-05-20 End: 01-05-20 take 1 tablet by mouth once fluconazole (DIFLUCAN) 150 mg tablet Indications: Acute vaginitis Take 1 tablet by mouth one time only for 1 dose. 1 tablet 01/05/2024 01/05/2024 Active Start: 11-01-2023 End: 11-02-2023 take 1 tablet by mouth once daily fluconazole (DIFLUCAN) 150 mg tablet Indications: Vaginal discharge Take 1 tablet by mouth once daily for 1 day. 1 tablet 0 11/01/2023 11/02/2023 Active Start: 04-14-2023 End: 04-15-2023 take 1 tablet by mouth once daily fluconazole (DIFLUCAN) 150 mg tablet Take 1 tablet by mouth once daily for 1 day. 1 tablet 0 04/14/2023 04/15/2023 Active Comment on above: Take 1 tablet by page th once daily for 1 day. fluticasone propionate 0.05 mg/actuat metered dose nasal spray (7 sources) Corticosteroid Start: 09-11-19 End: 10-11-19 take 1-2 spray(s) nasal route once daily fluticasone (FLONASE) 50 mcg/actuation nasal spray Indications: Viral URI with cough Use 1-2 sprays in each nostril once daily. 1 each 09/10/2024 10/10/2024 Active gabapentin 300 mg oral capsule (5 sources) Anti-epileptic Agent Start: 09-25-19 take 1 capsule by mouth three times daily Gabapentin (Neurontin) 300 mg capsule Active 300 MG PO THREE TIMES A DAY September 24, 2021 8:57am Start: 12-29-2020 take 1 tablet by [facility] twice daily gabapentin (NEURONTIN) 600 mg tablet Take 600 mg by mouth twice daily. 0 12/29/2020 Active Comment on above: Take 600 mg by mouth twice daily. hydrOXYzine pamoate 25 mg oral capsule (1 source) Antihistamine Start: 1 take 25 mg by mouth every four hours as needed for anxiety 25 mg, Oral, EVERY 4 HOURS PRN, Itching, Anxiety, Starting on Barbara 02/24/21 at 1546 ibuprofen 600 mg oral tablet (3 sources) Nonsteroidal Anti-inflammatory Drug Start: 4 End: 4 take 1 tablet by mouth every six hours as needed for pain ibuprofen (MOTRIN) 600 mg tablet Indications: Tooth pain Take 1 tablet by mouth every 6 hours as needed for pain for up to 10 days. 40 tablet 03/03/2024 03/13/2024 Active Start: 09-21-2021 take 800 mg by mouth every eight hours Ibuprofen Active 800 MG PO Q8H 30 7 September 21, 2021 5:17pm iv contrast (will be provided with radiology test) (1 source) Start: 10-10-2024 End: 10-10-2024 inject 1 dose intravenously once, then inject 1 dose intravenously once iv contrast (will be provided with radiology test) Inject 1 each intravenously one time only for [address] Neck W IVCON No IV access, insert saline lock prior to the sedation, infusion, injection for imaging exam. Discontinue saline lock post exam. If Pt. has a central line or IVAD, may access for administration according to line specific nursing protocol. Once exam is complete flush line and de-access according to line specific nursing protocol in the CT contrast administration guidelines link. 1 each 10/10/2024 10/10/2024 Active lansoprazole 30 mg delayed release oral capsule (18 sources) Proton Pump Inhibitor Start: 08-03-2024 take 1 capsule by mouth every twelve hours lansoprazole (PREVACID) 30 mg capsule Take 1 capsule by mouth every 12 hours. 08/03/2024 Active Start: 05-27-2024 End: 10-23-2024 take 1 capsule by mouth twice daily Lansoprazole 30 mg capsule,delayed release(DR/EC) Active 30 mg PO TWICE A DAY 60 October 23, 2024 9:53am Start: 04-21-2024 End: 05-27-2024 take 1 capsule by mouth once daily before breakfast Lansoprazole 30 mg capsule,delayed release(DR/EC) Discontinued 30 mg PO .COMPLEX 30 April 21, 2024 1:00am May 27, 2024 1:30pm 30 mg orally once a day in the morning 30 minutes before breakfast; loperamide hydrochloride 2 mg oral capsule (1 source) Opioid Agonist Start: 02-24-2021 loperamide (IMODIUM) capsule 2 mg metroNIDAZOLE 500 mg oral tablet (13 sources) Nitroimidazole Antimicrobial Start: 11-01-2023 End: 11-08-2023 take 1 tablet by mouth twice daily metroNIDAZOLE (FLAGYL) 500 mg tablet Take 1 tablet by mouth two times a day for 7 days. 14 tablet 0 11/01/2023 11/08/2023 Active Start: 11-10-2021 End: 10-05-2023 take 1 tablet by mouth twice daily Metronidazole 500 mg tablet Discontinued 500 mg PO TWICE A DAY 14 0 November 10, 2021 12:00am October 05, 2023 10:15am take one tab by mouth twice a day for 7 days Comment on above: Take 1 tablet by page twice daily for 7 days. Take 1 tablet by page two times a day for 7 days. naloxone hydrochloride 40 mg/ml nasal spray (9 sources) Opioid Antagonist Start: 023 End: 023 naloxone 4 MG/0.1ML Indications: Opioid use disorder, severe, dependence 1 spray by Nasal route once for 1 dose. Dexter into the nose as directed. Call 911. If no response in 2 minutes use a new nasal spray in other nostril. Repeat until help arrives. 1 Each 12/15/2022 Active 24 hr nicotine 0.583 mg/hr transdermal system (1 source) Cholinergic Nicotinic Agonist Start: nicotine (NICODERM CQ) 14 MG/24HR 1 patch ondansetron (ZOFRAN-ODT) disintegrating tablet 4 mg (1 source) Start: ondansetron (ZOFRAN-ODT) disintegrating tablet 4 mg polyethylene glycol 3350 80127 mg powder for oral solution (1 source) Osmotic Laxative Start: polyethylene glycol (GLYCOLAX) packet 17 g sulfamethoxazole 800 mg / trimethoprim 160 mg oral tablet (12 sources) Dihydrofolate Reductase Inhibitor Antibacterial, Sulfonamide Antimicrobial Start: End: take 1 tablet by mouth twice daily sulfamethoxazole-trim ethoprim (BACTRIM DS) 800-160 mg per tablet Indications: Urinary frequency Take 1 tablet by mouth twice daily for 3 days. 6 tablet 0 12/11/2022 12/14/2022 Active Start: 09-30-2019 End: 10-10-2019 Sulfamethoxazole-Trimethopri m 1 TABLET tablet Discontinued 1 {tbl} PO TWICE A DAY September 30, 2019 12:00am October 09, 2019 12:00am October 10, 2019 12:02am Start: 09-30-2019 End: 10-10-2019 take 1 tablet by mouth twice daily Sulfamethoxazole-Trimethoprim Discontinu ed 1 TABLET PO TWICE A DAY 23 02September 30, 2019 12:00am October 10, 2019 12:02am Comment on above: Take 1 tablet by page th twice daily for 3 days. ursodiol 300 mg oral capsule (5 sources) Bile Acid Start: 07-03-19 take 1 capsule by mouth twice daily at mealtime Ursodiol 300 mg capsule Active 300 mg PO TWICE A DAY 60 July 03, 2024 1:00am bile acid take twice daily with meals valACYclovir 1000 mg oral tablet (20 sources) Herpesvirus Nucleoside Analog DNA Polymerase Inhibitor, Herpes Simplex Virus Nucleoside Analog DNA Polymerase Inhibitor, Herpes Zoster Virus Nucleoside Analog DNA Polymerase Inhibitor Start: 05-24-19 End: 05-31-19 valACYclovir (VALTREX) 1 gram tablet Indications: Genital herpes simplex, unspecified site Take 1 tablet by mouth three times a day for 7 days. for 7 days 21 tablet 05/24/2024 05/31/2024 Active Start: 06-26-2023 End: 07-01-2023 take 1 tablet by mouth once daily valACYclovir (VALTREX) 1 gram tablet Take 1 tablet by mouth once daily for 5 days. 5 tablet 0 06/26/2023 07/01/2023 Active Start: 09-15-2021 End: 09-21-2021 take 1 tablet by mouth twice daily Valacyclovir (Valtrex) 500 mg tablet Discontinued 500 mg PO TWICE A DAY September 21, 2021 4:03pm September 21, 2021 5:17pm Hx HSV Comment on above: Take 1 tablet by page once daily for 5 days. Completed/Discontinued Medications Medication Drug Class(es) Dates Sig (Normalized) Sig (Original) [id number] 200 actuat albuterol 0.09 mg/actuat metered dose inhaler (3 sources) beta2-Adrenergic Agonist Start: 01-24-2021 take 2 puff(s) by inhalation every four hours as needed for wheezing albuterol HFA (PROVENTIL HFA, VENTOLIN HFA) 90 mcg/actuation inhaler Inhale 2 Puffs as instructed every 4 hours as needed for wheezing/shortness of breath. 8 g 0 01/24/2021 Active Comment on above: Inhale 2 Puffs as in structed every 4 hours as needed for wheezing/shortness of breath. Buprenorphine (20 sources) Partial Opioid Agonist Start: 10-05-2023 End: 04-21-2024 Buprenorphine (Brixadi) 64 mg/0.18 mL solution, extended rel syringe Discontinued 64 mg SC Q28D October 05, 2023 12:00am April 21, 2024 4:51pm Start: 07-26-2023 End: 07-26-2023 300 mg, Subcutaneous, ONCE, 1 dose, On Barbara 07/26/23 at 1345, For abdominal subcutaneous (SQ) injection only. Do not administer IV or IM. Allow at least 15 minutes to warm to room temperature prior to injection. Administer each injection only using the syringe and safety needle included with the product. Start: 06-28-2023 End: 06-28-2023 300 mg, Subcutaneous, ONCE, 1 dose, On Barbara 06/28/23 at 1345, For abdominal subcutaneous (SQ) injection only. Do not administer IV or IM. Allow at least 15 minutes to warm to room temperature prior to injection. Administer each injection only using the syringe and safety needle included with the product. Start: 05-03-2023 End: 05-03-2023 buprenorphine ER (SUBLOCADE) SQ injection 300 mg Start: 04-05-2023 End: 04-05-2023 buprenorphine ER (SUBLOCADE) SQ injection 300 mg Start: 03-08-2023 End: 03-08-2023 buprenorphine ER (SUBLOCADE) SQ injection 300 mg Start: 02-08-2023 End: 02-08-2023 buprenorphine ER (SUBLOCADE) SQ injection 300 mg Start: 01-11-2023 End: 01-11-2023 buprenorphine ER (SUBLOCADE) SQ injection 300 mg Start: 12-14-2022 End: 12-14-2022 buprenorphine ER (SUBLOCADE) SQ injection 300 mg Start: 11-17-2022 End: 11-17-2022 buprenorphine ER (SUBLOCADE) SQ injection 100 mg Start: 09-18-2022 End: 09-18-2022 buprenorphine ER (SUBLOCADE) SQ injection 300 mg Start: 02-08-2022 End: 12-11-2022 SUBLOCADE 300 mg/1.5 mL inje ction 300 mg once every month. 02/08/2022 12/11/2022 Discontinued Start: 02-08-2022 buprenorphine ER (Sublocade) 300 MG/1.5ML Solution Prefilled Syringe injection 1.5 mL every 30 days. 02/08/2022 Active Start: 06-02-2021 End: 10-05-2023 Buprenorphine Hcl 2 mg table t, sublingual Discontinued 12 mg SL DAILY June 02, 2021 12:39pm October 05, 2023 10:15am Hx drug use Start: 06-02-2021 Buprenorphine Hcl Active 12 MG SL DAILY June 02, 2021 12:39pm Start: 06-02-2021 Buprenorphine Hcl Active 12 MG SL 3 times daily June 02, 2021 12:39pm Start: 03-13-2021 End: 06-02-2021 Buprenorphine Hcl (Subutex) 2 mg Tablet, Sublingual Discontinued 4 mg SL DAILY March 13, 2021 12:00am June 02, 2021 12:40pm Start: 03-13-2021 End: 06-02-2021 Buprenorphine Hcl (Subutex) 2 mg Tablet, Sublingual Discontinued 4 MG SL DAILY March 13, 2021 12:00am June 02, 2021 12:40pm Start: 02-25-2021 buprenorphine (SUBUTEX) SL tablet 2 mg End: 09-19-2024 buprenorphine ER (SUBLOCADE) 100 mg/0.5 mL injection Inject 100 mg subcutaneously one time only. 09/19/2024 Discontinued (Course of therapy completed) Comment on above: 300 mg once every mo nth. Inject 100 mg subcut aneously one time only. busPIRone hydrochloride 5 mg oral tablet (11 sources) Start: 019 End: take 1 tablet by mouth twice daily Buspirone 5 mg tablet Discontinued 5 mg PO TWICE A DAY 60 December 17, 2018 12:00am December 23, 2018 1:15pm cefadroxil 500 mg oral capsule (10 sources) Cephalosporin Antibacterial Start: 023 End: take 1 capsule by mouth twice daily cefadroxil 500 MG capsule TAKE 1 CAPSULE BY MOUTH TWICE DAILY FOR 10 DAYS 08/11/2022 06/28/2023 Discontinued Comment on above: Take 1 capsule by mo [facility] twice daily for 10 days. ciprofloxacin 500 mg oral tablet (11 sources) Quinolone Antimicrobial Start: 020 End: take 1 tablet by mouth twice daily Ciprofloxacin Hcl 500 MG tablet Discontinued 500 mg PO TWICE A DAY 6 May 19, 2019 1:00am June 27, 2019 10:11am cloNIDine hydrochloride 0.1 mg oral tablet (5 sources) Central alpha-2 Adrenergic Agonist Start: take 1 tablet by mouth four times daily cloNIDine HCl (CATAPRES) 0.1 mg tablet Take 0.1 mg by mouth four times daily. 0 12/27/2020 Active Comment on above: Take 0.1 mg by mouth four times daily. colestipol hydrochloride 1000 mg oral tablet (5 sources) Bile Acid Sequestrant Start: 025 End: Colestipol 1 gram tablet Discontinued 1 g PO THREE TIMES A DAY 90 July 01, 2024 1:00am July 03, 2024 10:41am bile gastritis cyclobenzaprine hydrochloride 10 mg oral tablet (11 sources) Muscle Relaxant Start: 015 End: 015 take 5 mg by mouth three times daily as needed for pain Cyclobenzaprine 10 MG tablet Discontinued 5 mg PO 3 TIMES DAILY NEEDED as needed for Mild Pain February 16, 2015 12:00am February 16, 2015 10:14pm Start: 02-16-2015 End: 02-16-2015 take 5 mg by mouth three times daily as needed Cyclobenzaprine Discontinued 5 MG PO 3 TIMES DAILY NEEDED February 16, 2015 12:00am February 16, 2015 10:14pm esomeprazole 20 mg delayed release oral capsule (16 sources) Proton Pump Inhibitor Start: 04-21-2024 End: 04-21-2024 take 1 capsule by mouth once daily Esomeprazole Magnesium (Nexium 24hr) 20 mg capsule,delayed release(DR/EC) Discontinued 20 mg PO daily April 21, 2024 1:00am April 21, 2024 5:20pm Start: 04-06-2021 End: 04-12-2021 take 1 capsule by mouth once daily Esomeprazole Magnesium (Nexium) 20 mg capsule,delayed release(DR/EC) Discontinued 20 mg PO DAILY 30 April 06, 2021 1:00am April 12, 2021 5:32pm famotidine 40 mg oral tablet (20 sources) Histamine-2 Receptor Antagonist Start: 04-21-2024 End: 10-23-2024 take 1 tablet by mouth at bedtime Famotidine 40 mg tablet Discontinued 40 mg PO AT BEDTIME 30 2 August 05, 2024 2:55pm October 23, 2024 9:53am Start: 10-05-2023 End: 04-21-2024 take 1 tablet by mouth once daily Famotidine 20 mg tab let Discontinued 20 mg PO DAILY October 05, 2023 12:00am April 21, 2024 5:20pm Start: 06-29-2021 End: 09-21-2021 take 1 tablet by mouth once daily Famotidine 20 mg tab let Discontinued 20 mg PO DAILY 30 3 June 29, 2021 1:00am September 21, 2021 4:03pm Start: 06-27-2021 End: 06-29-2021 take 1 tablet by mouth once daily as needed for gastroesophageal reflux disease Famotidine (Pepcid Ac) 10 mg tablet Discontinued 10 mg PO DAILY as needed for heartburn 30 3 June 27, 2021 1:00am June 29, 2021 12:56pm Start: 02-24-2021 famotidine (PE PCID) tablet 20 mg End: 06-28-2023 faMOTIdine 20 MG tablet Take by mouth 2 times daily. 06/28/2023 Discontinued hydrocortisone 25 mg/ml topical cream (5 sources) Corticosteroid Start: 04-21-2024 End: 05-01-2024 Hydrocortisone (Anusol-Hc) 2.5 % cream with perineal applicator Discontinued 1 NMA RC 1 to 2 times per day 30 10 0 April 21, 2024 1:00am April 30, 2024 1:00am May 01, 2024 1:09am lamoTRIgine 100 mg oral tablet (12 sources) Mood Stabilizer, Anti-epileptic Agent Start: 08-10-2022 End: 06-28-2023 take 1 tablet by mouth once daily lamoTRIgine 100 MG tablet Take 1 tablet by mouth daily. 08/10/2022 06/28/2023 Discontinued lisdexamfetamine dimesylate 10 mg oral capsule (15 sources) Central Nervous System Stimulant End: 06-28-2023 take 1 capsule by mouth once daily lisdexamfetamine (VYVANSE) 10 mg capsule Take by mouth once daily. 12/11/2022 Discontinued Comment on above: Take by mouth once d aily. lubiprostone 0.024 mg oral capsule (5 sources) Chloride Channel Activator Start: 07-03-2024 End: 11-10-2024 take 1 capsule by mouth twice daily Lubiprostone (Amitiza) 24 mcg capsule Discontinued 24 ug PO TWICE A DAY 180 0 July 03, 2024 1:00am November 10, 2024 10:43am constipation nitrofurantoin, macrocrystals 25 mg / nitrofurantoin, monohydrate 75 mg oral capsule (1 source) Nitrofuran Antibacterial Start: 12-13-2022 End: 12-18-2022 take 1 capsule by mouth twice daily nitrofurantoin monohydrate and macrocrystal (MACROBID) 100 mg capsule Take 1 capsule by mouth twice daily for 5 days. 10 capsule 0 12/13/2022 12/18/2022 Comment on above: Take 1 capsule by mo ut twice daily for 5 days. omeprazole 20 mg delayed release oral capsule (11 sources) Proton Pump Inhibitor Start: 01-24-2024 End: 09-19-2024 take 1 capsule by mouth once daily omeprazole (PRILOSEC) 20 mg capsule Indications: Nausea Take 1 capsule by mouth once daily for 14 days. 14 capsule 01/24/2024 09/19/2024 Discontinued ondansetron 8 mg disintegrating oral tablet (20 sources) Serotonin-3 Receptor Antagonist Start: 06-07-2024 End: 06-12-2024 take 1 tablet by mouth every eight hours as needed for nausea Ondansetron 4 mg tablet,disintegratin g Discontinued 4 mg PO EVERY 8 HOURS NEEDED as needed for Nausea 10 0 June 07, 2024 1:00am June 12, 2024 5:49pm Start: 05-27-2024 End: 10-29-2024 take 1 tablet by mouth every twelve hours as needed for nausea and vomiting Ondansetron 8 mg tablet,disintegrating Discontinued 8 mg PO Q12H as needed for nausea and vomiting 30 0 October 09, 2024 4:46pm October 29, 2024 4:39pm Start: 04-08-2024 End: 05-02-2024 take 1 tablet by mouth every eight hours as needed for nausea ondansetron orally disintegrating (ZOFRAN ODT) 8 mg disintegrating tablet Indications: Bilious vomiting with nausea Take 1 tablet by mouth every 8 hours as needed for nausea/vomiting for up to 15 days. 45 tablet 04/17/2024 05/02/2024 Active Start: 03-18-2024 End: 04-08-2024 take 1 tablet by mouth every eight hours as needed ondansetron orally disintegrating (ZOFRAN ODT) 4 mg disintegrating tablet Take 1 tablet by mouth every 8 hours as needed for nausea/vomiting. 12 tablet 03/18/2024 04/08/2024 Discontinued Start: 10-05-2023 End: 05-27-2024 take 1 tablet by mouth every six hours Ondansetron 4 mg tablet,disintegrating Discontinued 4 mg PO EVERY 6 HOURS 20 0 May 19, 2024 4:46pm May 27, 2024 1:29pm Start: 03-14-2021 End: 07-29-2021 take 1 tablet by mouth every four hours as needed for nausea and vomiting Ondansetron 4 mg tablet,disintegrating Discontinued 4 mg PO Q4H as needed for nausea and vomiting 60 2 May 24, 2021 5:23pm July 29, 2021 4:47pm permethrin 50 mg/ml topical cream (1 source) Pyrethroid Start: 01-29-2023 End: 01-29-2023 permethrin (ELIMITE) 5 % cream Indications: Rash Apply 1 application to affected area one time only for 1 dose. massage into skin from neck to feet, leave on 8-12hrs, wash off; Info: repeat 2wks if live mites persist. Itching may persist after effective treatment. 60 g 0 01/29/2023 01/29/2023 Comment on above: Apply 1 application to affected area one time only for 1 dose. massage into skin from neck to feet, leave on 8-12hrs, wash off; Info: repeat 2wks if live mites persist. Itching may persist after effective treatment. promethazine hydrochloride 25 mg oral tablet (20 sources) Phenothiazine Start: 02-14-2015 End: 02-16-2015 Promethazine 25 MG tablet Discontinued 12.5 mg PO EVERY 6 HOURS NEEDED as needed for Nausea February 14, 2015 9:51pm February 16, 2015 10:13pm Start: 02-14-2015 End: 02-16-2015 take 12.5 mg by mouth every six hours as needed Promethazine Discontinued 12.5 MG PO EVERY 6 HOURS NEEDED February 14, 2015 9:51pm February 16, 2015 10:13pm Start: 04-20-2014 End: 02-14-2015 take 1 tablet by mouth every six hours as needed for nausea Promethazine 25 MG tablet Discontinued 25 mg PO EVERY 6 HOURS NEEDED as needed for Nausea 10 0 April 20, 2014 1:00am February 14, 2015 9:51pm sertraline 50 mg oral tablet (11 sources) Serotonin Reuptake Inhibitor Start: 04-20-2014 End: 02-16-2015 take 1 tablet by mouth once daily Sertraline 50 MG tablet Discontinued 50 mg PO DAILY April 20, 2014 1:00am February 16, 2015 10:15pm sodium phosphate, dibasic 35.5 mg/ml / sodium phosphate, monobasic 96.4 mg/ml enema (10 sources) Start: 06-07-2022 End: 06-07-2022 take 133 mL rectal route once sodium phosphate-sodium bisphosphate (FLEET ENEMA) enema 133 mL by RECTAL route one time only for 1 dose. 133 mL 0 06/07/2022 06/07/2022 Active Start: 06-07-2022 End: 06-28-2023 Sodium Phosphates (SM Enema) 7-19 GM/118ML Enema 133 mL by RECTAL route one time only for 1 dose. 06/07/2022 06/28/2023 Discontinued Comment on above: 133 mL by RECTAL rou te one time only for 1 dose. Sucralfate (Carafate) 100 mg/mL suspension (5 sources) Start: 04-21-2024 End: 05-27-2024 take 1 mL by mouth three times daily Sucralfate (Carafate) 100 mg/mL suspension Discontinued 10 mL PO THREE TIMES A DAY 999April 21, 2024 1:00am May 27, 2024 1:29pm Start: 04-21-2024 End: 05-27-2024 take 1 mL by mouth three times daily Sucralfate (Carafate) 100 mg/mL suspension Discontinued 10 mL PO THREE TIMES A DAY 999April 21, 2024 1:00am May 27, 2024 1:29pm traZODone hydrochloride 50 mg oral tablet (9 sources) Serotonin Reuptake Inhibitor Start: 08-10-2022 End: 06-28-2023 take 1 tablet by mouth at bedtime as needed traZODone 50 MG tablet Take 1 tablet by mouth at bedtime as needed. 08/10/2022 06/28/2023 Discontinued 24 hr venlafaxine 150 mg extended release oral capsule (5 sources) Serotonin and Norepinephrine Reuptake Inhibitor Start: 12-07-2020 take 1 capsule by mouth once daily venlafaxine ER (EFFEXOR XR) 150 mg 24 hr capsule Take 150 mg by mouth once daily. 0 12/07/2020 Active Comment on above: Take 150 mg by mouth once daily. vortioxetine 10 mg oral tablet (12 sources) Start: 08-10-2022 End: 06-28-2023 take 1 tablet by mouth once daily Trintellix 10 MG tablet Take 1 tablet by mouth daily. 08/10/2022 06/28/2023 Discontinued Problems Active Problems Problem Classification Problem Date Documented Da te Episodic/Chronic Abdominal pain (20 sources) Right upper quadrant pain; Translations: [Right upper quadrant pain] Onset: 2 Episodic Acute myocardial infarction (4 sources) Acute non-ST segment elevation myocardial infarction; Translations: [Non-ST elevation (NSTEMI) myocardial infarction] 11-10-2024 Chronic Alcohol-related disorders (11 sources) Alcohol abuse; Translations: [Alcohol abuse, uncomplicated] 02-01-2021 Chronic Comment on above: IN THE PAST Allergic reactions (11 sources) Urticaria; Translations: [Urticaria, unspecified] 02-01-2021 Episodic Anxiety disorders (20 sources) Anxiety disorder; Translations: [Anxiety disorder, unspecified] Onset: 5 Chronic Attention-deficit, conduct, and disruptive behavior disorders (20 sources) Attention deficit hyperactivity disorder; Translations: [Attention-deficit hyperactivity disorder, unspecified type] Onset: 2 03-01-2022 Chronic Biliary tract disease (4 sources) Cholelithiasis without obstruction; Translations: [Calculus of gallbladder without cholecystitis without obstruction] Onset: 2 Episodic Contraceptive and procreative management (20 sources) Patient encounter status; Translations: [Encounter for contraceptive management, unspecified] Episodic Comment on above: wants matt BS. title 1 signed 08/18 Deficiency and other anemia (11 sources) Anemia; Translations: [Anemia, unspecified] 02-01-2021 Episodic Comment on above: DURING Disorders of teeth and jaw (2 sources) Infection of tooth; Translations: [Periapical abscess without sinus] 03-03-2024 Episodic Esophageal disorders (20 sources) Gastroesophageal reflux disease; Translations: [Gastro-esophageal reflux disease without esophagitis] Onset: 4 03-01-2022 Chronic Fluid and electrolyte disorders (1 source) Hyponatremia; Translations: [Hypo-osmolality and hyponatremia] Episodic Gastritis and duodenitis (8 sources) Bile-induced gastritis; Translations: [Other gastritis without bleeding] 07-03-2024 Episodic Gastrointestinal hemorrhage (10 sources) Rectal hemorrhage; Translations: [Hemorrhage of anus and rectum] Onset: 4 04-21-2024 Episodic Genitourinary symptoms and ill-defined conditions (2 sources) Increased frequency of urination; Translations: [Frequency of micturition] Episodic Hemorrhage during ; abruptio placenta; placenta previa (11 sources) Threatened miscarriage in first trimester; Translations: [Threatened ] 02-28-2021 Episodic Hepatitis (20 sources) Chronic active hepatitis; Translations: [Chronic active hepatitis, not elsewhere classified] Onset: 2 Chronic Hepatitis (20 sources) Finding of Hepatitis C status; Translations: [Unspecified viral hepatitis C without hepatic coma] Episodic Comment on above: 2020. PT DID NOT COM PLETE TREATMENT Immunizations and screening for infectious disease (6 sources) Hepatitis C antibody test positive; Translations: [Other specified abnormal immunological findings in serum] Onset: 1 Episodic Inflammatory diseases of female pelvic organs (1 source) Acute vaginitis; Translations: [Acute vaginitis] 01-05-2024 Episodic Intestinal infection (16 sources) Food poisoning; Translations: [Bacterial foodborne intoxication, unspecified] 05-02-2021 Episodic Lymphadenitis (1 source) Lymphadenopathy; Translations: [Generalized enlarged lymph nodes] Episodic Malposition; malpresentation (20 sources) Breech presentation; Translations: [Maternal care for breech presentation, not applicable or unspecified] Onset: 8 Resolved: 8 07-10-2018 Episodic Mood disorders (20 sources) Depressive disorder; Translations: [Depression] Onset: 4 03-17-2014 Chronic Comment on above: anxiety predominant. counseling center. no meds. Nonspecific chest pain (11 sources) Chest wall pain; Translations: [Other chest pain] 12-31-2018 Episodic Other and ill-defined heart disease (1 source) Takotsubo cardiomyopathy; Translations: [Takotsubo syndrome] 11-11-2024 Chronic Other complications of (16 sources) Anemia during - baby not yet delivered; Translations: [Anemia complicating , unspecified trimester] Onset: 8 03-08-2018 Chronic Other complications of (20 sources) Anemia; Translations: [Anemia complicating , unspecified trimester] Onset: 8 03-08-2018 Chronic Other complications of (20 sources) Anemia of ; Translations: [Anemia complicating , unspecified trimester] Onset: 5 Resolved: 7 03-08-2018 Chronic Other complications of (20 sources) Nausea and vomiting; Translations: [Vomiting of , unspecified] Onset: 8 01-21-2018 Episodic Other complications of (11 sources) Disease caused by 2019-nCoV; Translations: [Other viral diseases complicating , unspecified trimester] 09-23-2021 Episodic Comment on above: baby ASA, growth sca ns starting at 28 weeks Other complications of (11 sources) Abdominal pain in ; Translations: [Other specified related conditions, unspecified trimester] 07-10-2018 Episodic Other complications of (20 sources) High risk ; Translations: [Supervision of high risk , unspecified, unspecified trimester] Onset: 7 Resolved: 8 09-23-2021 Episodic Comment on above: PRR CHIN: 2 PC: Joelle Vásquez(does not have custody of children but has visitation) FOB not involved Other complications of (15 sources) Vaginal discharge; Translations: [Other specified related conditions, unspecified trimester] 07-10-2018 Episodic Other complications of (11 sources) Depressive disorder in mother complicating ; Translations: [Other mental disorders complicating , unspecified trimester] 02-01-2021 Episodic Other complications of (19 sources) Other viral diseases complicating , unspecified trimester; Translations: [Other viral diseases in the mother, antepartum condition or complication] Episodic Other complications of (19 sources) Supervision of high risk , unspecified, unspecified trimester; Translations: [Supervision of unspecified high-risk ] Episodic Other congenital anomalies (6 sources) Thyroglossal duct cyst; 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] 10-10-2024 Chronic Other congenital anomalies (1 source) Congenital malformations of other endocrine glands; 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] Onset: 5 Chronic Other female genital disorders (1 source) Pruritus of vagina; Translations: [Other specified noninflammatory disorders of vagina] 09-10-2024 Episodic Other female genital disorders (1 source) Other specified noninflammatory disorders of vagina; Translations: [Vaginal itching] Onset: 5 Episodic Other gastrointestinal disorders (20 sources) Malabsorption - iron; Translations: [Intestinal malabsorption, unspecified] Onset: 8 03-08-2018 Chronic Other gastrointestinal disorders (10 sources) Constipation; Translations: [Constipation, unspecified] Episodic Other infections; including parasitic (1 source) History of hepatitis C; Translations: [Personal history of other infectious and parasitic diseases] 09-19-2024 Episodic Other infections; including parasitic (1 source) Personal history of other infectious and parasitic diseases; Translations: [History of hepatitis C] Onset: 5 Episodic Other injuries and conditions due to external causes (20 sources) Finding of urine substance level; Translations: [Elevated urine levels of drugs, medicaments and biological substances] Onset: 8 02-20-2018 Episodic Other injuries and conditions due to external causes (11 sources) Fracture of bone; Translations: [Other injury of unspecified body region, initial encounter] 02-01-2021 Episodic Other non-traumatic joint disorders (4 sources) Acute ankle pain; Translations: [Pain in right ankle and joints of right foot] 09-19-2024 Episodic Other non-traumatic joint disorders (1 source) Pain in right ankle and joints of right foot; Translations: [Acute right ankle pain] Onset: 5 Episodic Other nutritional; endocrine; and metabolic disorders (1 source) Weight gain; Translations: [Abnormal weight gain] Episodic Other nutritional; endocrine; and metabolic disorders (5 sources) Weight decreased; Translations: [Abnormal weight loss] 09-19-2024 Episodic Other nutritional; endocrine; and metabolic disorders (1 source) Abnormal weight loss; Translations: [Weight loss] Onset: 5 Episodic Other and delivery including normal (20 sources) ; Translations: [Encounter for supervision of normal , unspecified, unspecified trimester] Onset: 5 Resolved: 8 Episodic Comment on above: nipt- low risk and c arrier-neg . Normal anatomy US. GBS neg Other screening for suspected conditions (not mental disorders or infectious disease) (1 source) Encounter for screening for malignant neoplasm of cervix; Translations: [Encounter for screening for malignant neoplasm of cervix] Onset: 5 Episodic Other skin disorders (11 sources) History of skin and/or subcutaneous tissue disease; Translations: [Personal history of diseases of the skin and subcutaneous tissue] 02-01-2021 Episodic Other skin disorders (1 source) Mass of skin; Translations: [Localized swelling, mass and lump, unspecified] Episodic Other skin disorders (1 source) Cyst of skin; Translations: [Follicular cyst of the skin and subcutaneous tissue, unspecified] 12-28-2022 Episodic Other skin disorders (1 source) Eruption; Translations: [Rash and other nonspecific skin eruption] 01-29-2023 Episodic Other upper respiratory infections (3 sources) Acute upper respiratory infection; Translations: [Acute upper respiratory infection, unspecified] Onset: 5 Episodic Ovarian cyst (3 sources) Unspecified ovarian cyst, unspecified side; Translations: [Cyst of ovary] Onset: 5 09-26-2024 Episodic Poisoning by other medications and drugs (11 sources) Poisoning by unspecified drugs, medicaments and biological substances, accidental (unintentional), initial encounter; Translations: [Drug overdose] 12-29-2018 Episodic Residual codes; unclassified (3 sources) Admitted to substance misuse detoxification center; Translations: [Other specified health status] Onset: 1 Resolved: 1 Episodic Residual codes; unclassified (1 source) Procedure not done; Translations: [Procedure and treatment not carried out, unspecified reason] Episodic Residual codes; unclassified (14 sources) Tobacco user; Translations: [Tobacco use] 05-05-2021 Episodic Comment on above: encouraged cessation ; about 1/2 ppd Residual codes; unclassified (19 sources) Tobacco use; Translations: [Tobacco use disorder] Episodic Residual codes; unclassified (20 sources) History of uterine scar from previous surgery; Translations: [Other postprocedural status] Episodic Residual codes; unclassified (1 source) Procedure and treatment not carried out due to patient leaving prior to being seen by health care provider; Translations: [Procedure and treatment not carried out due to patient leaving prior to being seen by health care provider] Onset: 5 Episodic Screening and history of mental health and substance abuse codes (11 sources) History of clinical finding in subject; Translations: [Personal history of other mental and behavioral disorders] 03-10-2021 Episodic Comment on above: sees Eduin and the [facility]. COMPLETED PROGRAMS/SOBER FOR 2 YRS Skin and subcutaneous tissue infections (20 sources) Cellulitis and abscess of buttock; Translations: [Cutaneous abscess of buttock] 02-01-2021 Episodic Substance-related disorders (20 sources) Opioid abuse; Translations: [Opioid dependence, uncomplicated] Onset: 4 Resolved: 8 Chronic Comment on above: heroin/meth exposure first trimester. on subutex. sees Dr Robles. been in recovery since mid february living at [facility]. Leaving [place] on 05/16/21 Substance-related disorders (20 sources) Substance abuse; Translations: [Drug use complicating , first trimester] Onset: 7 Episodic Thyroid disorders (6 sources) Thyroid nodule; Translations: [Goiter] Onset: 5 09-19-2024 Chronic Unclassified (1 source) Acute non-ST elevation myocardial infarction (NSTEMI) Unclassified (1 source) Stress-induced cardiomyopathy Unclassified (1 source) I21.4 - Non-ST elevation (NSTEMI) myocardial infarction,I51.81 - Takotsubo syndrome Urinary tract infections (20 sources) Urinary tract infectious disease; Translations: [Urinary tract infection, site not specified] 02-01-2021 Episodic Viral infection (20 sources) Herpes simplex; Translations: [Herpesviral infection of urogenital system, unspecified] Onset: 8 09-13-2017 Chronic Comment on above: plan valtrex at 36 w eeks Viral infection (12 sources) Herpes simplex; Translations: [Herpesviral infection, unspecified] 02-01-2021 Episodic Comment on above: GENTIAL Past or Other Problems Problem Classification Problem Date Documented Date Episodic/Chronic Administrative/social admission (20 sources) Social problem; Translations: [Problem related to unspecified psychosocial circumstances] Onset: 01-22-2018 01-22-2018 Episodic Deficiency and other anemia (20 sources) Iron deficiency anemia; Translations: [Iron deficiency anemia, unspecified] Onset: 03-08-2018 03-08-2018 Episodic Epilepsy; convulsions (20 sources) Seizure; Translations: [Unspecified convulsions] Onset: 03-01-2022 03-01-2022 Episodic Nausea and vomiting (7 sources) Nausea; Translations: [Nausea] Onset: 06-24-2024 01-24-2024 Episodic Other complications of (20 sources) Maternal tobacco use; Translations: [Smoking (tobacco) complicating , first trimester] Onset: 10-06-2016 Resolved: 09-13-2017 Episodic Other complications of (20 sources) Urinary tract infection in ; Translations: [Unspecified infection of urinary tract in , unspecified trimester] Onset: 06-30-2014 Resolved: 02-25-2015 01-21-2018 Episodic Other complications of (20 sources) Small for gestational age fetus; Translations: [Maternal care for other known or suspected poor growth, second trimester, not applicable or unspecified] Onset: 01-21-2018 04-03-2018 Episodic Other complications of (20 sources) Herpes simplex type 2 infection; Translations: [Other viral diseases complicating , unspecified trimester] Onset: 07-15-2014 Resolved: 02-25-2015 05-02-2021 Episodic Other complications of (20 sources) Rubella non-immune; Translations: [Supervision of other high risk pregnancies, unspecified trimester] Onset: 07-16-2014 Resolved: 02-25-2015 02-25-2015 Episodic Other complications of (20 sources) Uterine size for dates discrepancy; Translations: [Uterine size-date discrepancy, unspecified trimester] Onset: 02-05-2015 Resolved: 02-25-2015 02-25-2015 Episodic Other complications of (18 sources) Vomiting of , unspecified; Translations: [Unspecified vomiting of , unspecified as to episode of care or not applicable] Onset: 08-30-2017 01-21-2018 Episodic Residual codes; unclassified (20 sources) Family history of cystic fibrosis; Translations: [Family history of other endocrine, nutritional and metabolic diseases] Onset: 07-15-2014 05-02-2021 Episodic Residual codes; unclassified (20 sources) H/O: depression; Translations: [Personal history of other complications of , childbirth and the puerperium] Onset: 10-06-2016 Resolved: 09-13-2017 01-21-2018 Episodic Residual codes; unclassified (20 sources) History of violent behavior toward others; Translations: [Personal history of other specified conditions] Onset: 09-19-2017 09-19-2017 Episodic Residual codes; unclassified (20 sources) Tobacco use and exposure - finding; Translations: [Tobacco use] Onset: 08-30-2017 03-01-2022 Episodic Residual codes; unclassified (20 sources) Family history of disorder; Translations: [Family history of other infectious and parasitic diseases] Onset: 10-06-2016 Resolved: 09-13-2017 09-13-2017 Episodic Results Test Name Value Interpretation Reference Range Facility TSH DL <= 0.005 mIU/L QnOrde red By: Roman Gunter on 11-11-2024 TSH Qn 0.303 uIU/mL 0.300-4.200 [facility] Absolute lymphocyte countOrd ered By: Adiel Silva on 11-10-2024 Lymphocytes Auto (Unsp spec) [#/Vol] 3.04 10*3/uL 0.83-4.51 [facility] Absolute neutrophil countOrd ered By: Adiel Silva on 11-10-2024 Neutrophils (Bld) [#/Vol] 4.1 10*3/uL 2.0-7.7 [facility] Activated partial thrombopla stin time (aPTT) in platelet poor plasma by coagulation aOrdered By: Roman Gunter on 11-10-2024 aPTT Coag (PPP) [Time] 111.4 s High 24.1-36.2 [facility] Comment on above: CRITICAL VALUE STEINBERG D TO JANA JHAVERI11/11/24 0027 Tressa Calzada.RESULTS READ BACK BY SAME. Amphetamine detection with 1 000 ng/mL as cutoffOrdered By: Adiel Silva on 11-10-2024 Amphetamines Screen method >1000 ng/mL Ql (U) Negative < 200 ng/mL [facility] Anion gap in Serum or Plasma Ordered By: Adiel Silva on 11-10-2024 Anion gap [Moles/Vol] 15 mmol/L 5-15 [facility] Automated lymphocyte count a s percentage of total leukocytesOrdered By: Adiel Silva on 11-10-2024 Lymphocytes/100 WBC Auto (Unsp spec) 38.9 % 19-41 [facility] BUN/creatinine ratioOrdered By: Adiel Silva on 11-10-2024 Urea nitrogen/Creatinine [Mass ratio] 15.0 mg/mg 10-20 [facility] Basophil percentageOrdered B y: Adiel Silva on 11-10-2024 Basophils/100 WBC (Bld) 0.6 % 0-1 [facility] Bilirubin, totalOrdered By: Adiel Silva on 11-10-2024 Bilirubin [Mass/Vol] 0.34 mg/dL 0.00-1.30 [facility] Carbon dioxide, total [Moles /volume] in Central venous bloodOrdered By: Adiel Silva on 11-10-2024 CO2 [Moles/Vol] 21.0 mmol/L 21.0-32.0 [facility] Chloride assayOrdered By: Ankur Silva on 11-10-2024 Chloride [Moles/Vol] 102 mmol/L 98-108 [facility] Eosinophil percentageOrdered By: Adiel Silva on 11-10-2024 Eosinophils/100 WBC (Bld) 1.8 % 0-5 [facility] Erythrocyte distribution wid th ratioOrdered By: Adiel Silva on 11-10-2024 Erythrocyte distribution width (RBC) [Ratio] 12.8 % 11.6-14.6 [facility] Erythrocyte distribution wid th standard deviationOrdered By: Adiel Rogel on 11-10-2024 Erythrocyte distribution width (RBC) [Ratio] 43.1 fl 35.1-43.9 [facility] Glomerular filtration rate ( GFR) estimation/1.73 sq m using serum, plasma, or whole bOrdered By: Adiel Silva on 11-10-2024 GFR/1.73 sq M.predicted among non-blacks MDRD (S/P/Bld) [Vol rate/Area] 84 mL/min/{1.73_m2} >60 [facility] Comment on above: mL/min/1.73m2 CKD-EP I Creatinine Equation (2020) Hematocrit Auto (Bld) [Volum e fraction]Ordered By: Adiel Silva on 11-10-2024 Hematocrit (Bld) [Volume fraction] 40.0 % 37-47 [facility] Hemoglobin measurementOrdere d By: Adiel Silva on 11-10-2024 Hemoglobin (Bld) [Mass/Vol] 13.4 g/dL 12.0-15.0 [facility] Immature granulocytes/100 WB C Auto (Bld)Ordered By: [facility] on 11-10-2024 Immature granulocytes/100 WBC (Bld) 0.100 % 0.0-0.9 [facility] Comment on above: IG% - Immature Granu locytes (promyelocytes, myelocytes and metamyelocytes) > 1% indicates that a LEFT SHIFT is Present. International normalized rat io (INR) calculationOrdered By: Adiel Silva on 11-10-2024 INR Coag (Bld) [Relative time] 1.1 {INR} [facility] Laboratory - Chemistry and C hemistry - challengeOrdered By: Adiel Silva on 11-10-2024 AST [Catalytic activity/Vol] 45 U/L High <32 [facility] Comment on above: Hemolysis present, R esults could be affected. Lipase measurementOrdered By : Adiel Silva on 11-10-2024 Lipase [Catalytic activity/Vol] 40 U/L 13-75 [facility] Comment on above: Please note:LIPASE r evised reference range effective 22. New Lipase methodology. Expected to produce lower values than the previous assay method. NEW Reference Range: 13 - 75 U/L MCV (mean corpuscular volume ) determinationOrdered By: Adiel Silva on 11-10-2024 MCV (RBC) [Entitic vol] 92.0 fL 81-99 [facility] Mean corpuscular hemoglobin (MCH) determinationOrdered By: Adiel Silva on 11-10-2024 MCH (RBC) [Entitic mass] 30.8 pg 27.0-32.0 [facility] Mean corpuscular hemoglobin concentration (MCHC) determinationOrdered By: Adiel Silva on 11-10-2024 MCHC (RBC) [Mass/Vol] 33.5 g/dL 32-36 [facility] Mean platelet volume determi nationOrdered By: Adiel Silva on 11-10-2024 Platelet mean volume (Bld) [Entitic vol] 9.9 fL 6.2-12.0 [facility] Monocyte percentageOrdered B y: Adiel Silva on 11-10-2024 Monocytes/100 WBC (Bld) 6.1 % 0-10 [facility] Neutrophil percentageOrdered By: [place] Shira on 11-10-2024 Neutrophils/100 WBC (Bld) 52.5 % 47-70 [facility] No Panel InformationOrdered By: Adiel Silva on 11-10-2024 Urine Buprenorphine Qualitative Positive < 200 ng/mL [facility] Comment on above: If confirmation test ing is needed, a separate order will be required to send out testing to the reference laboratory. Urine Oxycodone Screen Negative < 100 ng/mL [facility] Nucleated red blood cell per centageOrdered By: Adiel Silva on 11-10-2024 Nucleated RBC/100 WBC (Bld) [Ratio] 0 % 0-5 [facility] Platelet countOrdered By: Ankur peraltal Shira on 11-10-2024 Platelets (Bld) [#/Vol] 301 10*3/uL 150-450 [facility] Potassium measurement (mass/ volume)Ordered By: Adielhannah Silva on 11-10-2024 Potassium (Unsp spec) [Mass/Vol] 4.4 mmol/L 3.3-5.1 [facility] Comment on above: Hemolysis present, R esults could be affected. Prothrombin timeOrdered By: Adiel Silva on 11-10-2024 PT Coag (PPP) [Time] 13.9 s 11.7-14.9 [facility] Quantitative urine opiates m easurementOrdered By: Adiel Silva on 11-10-2024 Opiates Ql (U) Negative < 300 ng/mL [facility] RBC Auto (Bld) [#/Vol]Ordere d By: Adiel Silva on 11-10-2024 RBC (Bld) [#/Vol] 4.35 10*6/uL 4.2-5.4 [facility] Screening urine fentanyl dian surementOrdered By: Adiel Silva on 11-10-2024 fentaNYL Screen Ql (U) Negative [facility] Serum beta-hCG test, qualita tiveOrdered By: Adiel Silva on 11-10-2024 Beta HCG ( test) Ql Negative [facility] Serum creatinine measurement (mass/volume)Ordered By: Adiel Silva on 11-10-2024 Creatinine [Mass/Vol] 0.95 mg/dL 0.70-1.20 [facility] Serum globulin measurementOr dered By: Adiel Silva on 11-10-2024 Globulin (S) [Mass/Vol] 3.2 g/dL 2.2-4.2 [facility] Serum glucose measurement (m ass/volume)Ordered By: Adiel Silva on 11-10-2024 Glucose [Mass/Vol] 122 mg/dL High 70-99 [facility] Serum or plasma alanine oneill otransferase (ALT) measurementOrdered By: Adiel Silva on 11-10-2024 ALT [Catalytic activity/Vol] 29 U/L <35 [facility] Comment on above: Hemolysis present, R esults could be affected. Serum or plasma albumin homero urement (mass/volume)Ordered By: Adiel Rogel on 11-10-2024 Albumin [Mass/Vol] 4.7 g/dL 3.5-5.0 [facility] Serum or plasma albumin/glob ulin mass ratioOrdered By: Adielhannah Silva on 11-10-2024 Albumin/Globulin [Mass ratio] 1.5 {ratio} 0.9-2.4 [facility] Serum or plasma alkaline rae sphatase measurementOrdered By: Adiel Silva on 11-10-2024 ALP [Catalytic activity/Vol] 48 U/L 35-104 [facility] Serum or plasma calcium homero urement (mass/volume)Ordered By: Adiel Rogel on 11-10-2024 Calcium [Mass/Vol] 9.8 mg/dL 7.6-11.0 [facility] Serum or plasma urea nitroge n measurement (mass/volume)Ordered By: Adiel Silva on 11-10-2024 Urea nitrogen [Mass/Vol] 14 mg/dL 4-19 [facility] Sodium levelOrdered By: Farzad Silva on 11-10-2024 Sodium [Moles/Vol] 138 mmol/L 133-145 [facility] Total proteinOrdered By: Rakesh Silva on 11-10-2024 Protein [Mass/Vol] 7.9 g/dL 5.9-8.4 [facility] Troponin T.cardiac [Mass/vol ume] in Serum or Plasma by High sensitivity methodOrdered By: Adiel Silva on 11-10-2024 Troponin T.cardiac High sensitivity method [Mass/Vol] 1210 ng/L High <14 [facility] Comment on above: Delta: 12 on 5-1105Critical Result(s) Called [facility] at: 1540 by: HENRY Results read back by same. Urine benzodiazepine levelOr dered By: Adiel Silva on 11-10-2024 Benzodiazepines Ql (U) Negative < 200 ng/mL [facility] Urine cocaine levelOrdered B y: Adiel Silva on 11-10-2024 Cocaine Ql (U) Negative < 300 ng/mL [facility] Urine [id number] abinol (THC) measurementOrdered By: Adiel Rogel on 11-10-2024 Cannabinoids Screen Ql (U) Positive < 50 ng/mL [facility] Comment on above: If confirmation test ing is needed, a separate order will be required to send out testing to the reference laboratory. Urine phencyclidine (PCP) de tectionOrdered By: Adiel Silva on 11-10-2024 Phencyclidine Ql (U) Negative < 25 ng/mL [facility] White blood cell (WBC) count Ordered By: Adiel Silva on 11-10-2024 WBC (Bld) [#/Vol] 7.8 10*3/uL 4.4-11.0 [facility] CNOVon 10-30-2024 CNOV Office Visit (ENWSTR ) -------- REJI LORENZO ([id number]) 1995 F NFR Date Time Provider Department 10/30/24 9:40 AM HEIDI RAMIREZ ENWSTR During your visit today, we recorded the following information about you: Temperature Pulse Respiration Blood pressure 99 degrees 80/minute 12/minute 110/64 Weight 50.6 kg Heidi Ramirez MD 10/30/2024 6:44 PM Signed [facility] Follow up note NAME: Reji Lorenzo PCP: Celi Murray MD Requesting Provider: Celi Murray MD Chief Complaint: Thyroglossal duct cyst HPI: Reji Lorenzo is a 28 year old female is following up for evaluation of thyroglossal cyst Initial visit/ last visit 10/10/24 History in brief from prior documentation, she reports having GI issues, with recurrent episodes of emesis for atleast 8 months now, associated with epigastric pain, is following GI. She also reports having issues with menstrual cycles, and when she was getting ready for one of these appointments one morning, she noticed a lump in her neck while doing makeup. She followed up with her PCP, and was noticed to have a swelling in neck for which thyroid labs and thyroid ultrasound showing a possible thyroglossal cyst, followed by referral to Endocrinology Related symptoms: Swallowing difficulty: no, but she reports feeling pressure like sensation when swallowing especially with big chunks Shortness of breath when lying flat: no Hoarseness of voice: no Denied any pain History of radiation exposure to the neck: no No environmental or occupational exposure to radioactive materials such as proximity to nuclear plants or living in areas of endemic high radioactivity History of smoking: since age 16, 1 PPD- now she is trying to switch to non-nicotine vaping Family history of thyroid cancer: mother recently diagnosed with thyroid cancer Family history of thyroid nodules: as above Reports sweating a lot For GI evaluation, she underwent endoscopies and was noted to have gastritis, negative for H pylori. Today., she also reports intermittent non painful swelling of her right foot, asks if this is thyroid related. On further questioning, no known autoimmune issues specifically She had active Hep C, for 2 to 2.5 years ago when she was in addiction with heroine IV abuse, in recovery for 30 months Interval history: 10/30/[address] neck for evaluation of the neck lump and to differentiate between thyroglossal duct from exophytic thyroid nodule PAST MEDICAL HISTORY Diagnosis Date ADHD (attention deficit hyperactivity disorder) Anemia complicating (HCC) 12/31/2014 Anxiety Bipolar disorder (HCC) Chlamydia Chronic active hepatitis (HCC) 03/01/2022 Depression Depression 03/17/2014 fracture 11 years old collarbone Fracture age 7 left leg Hepatitis C Herpes simplex without mention of complication History of bleeding ulcers History of heroin use Ovarian cyst PID (acute pelvic inflammatory disease) Polysubstance abuse (HCC) Cocaine, heroin, benzos, methamphetamines Seizure (HCC) 03/01/2022 PAST SURGICAL HISTORY Procedure Laterality Date DELIVERY ONLY 04/16/2018 C/S low transverse ESOPHAGOGASTRODUODENOSCO PY TRANSORAL DIAGNOSTIC 06/08/2014 EGD LAPS SURG CHOLECYSTECTOMY W/CHOLANGIOGRAPHY 03/06/2022 PAST SURGICAL HISTORY OF 09/21/2021 fallopian tubes removed ALLERGIES Allergen Reactions Benadryl [Diphenhyd* Other: See Comments Hyper/anxiety Clindamycin Rash Rash and facial swelling Penicillins Rash Social History Tobacco Use Smoking status: Every Day Current packs/day: 1.00 Average packs/day: 1 pack/day for 14.6 years (14.6 ttl pk-yrs) Types: Cigarettes Start date: 03/17/2010 Smokeless tobacco: Never Vaping Use Vaping status: current everyday user Substances: Nicotine Substance Use Topics Alcohol use: No Drug use: Not Currently Types: Marijuana Comment: Yodit faratrent at today's visit 03/16/2017 FAMILY HISTORY Problem Relation Age of Onset Alcohol/Drug Mother Alcohol/Drug Father Seizures Sister other (SIDS) Brother Breast Cancer Maternal Grandmother Cancer Paternal Grandmother Lymphoma Cancer Paternal Grandfather Diabetes Paternal Grandfather Paternal/Materal sides MEDICATIONS: Current Outpatient Medications on File Prior to Visit Medication Sig famotidine (PEPCID) 40 mg tablet Take 40 mg by mouth daily at bedtime. lansoprazole (PREVACID) 30 mg capsule Take 1 capsule by mouth every 12 hours. ondansetron orally disintegrating (ZOFRAN ODT) 4 mg disintegrating tablet Take by mouth. TAKE 1 TABLET BY MOUTH EVERY 8 HOURS NEEDED FOR NAUSEA fluticasone (FLONASE) 50 mcg/actuation nasal spray Use 1-2 sprays in each nostril once daily. benzonatate (TESSALON PERLE) 100 mg capsule Take 1-2 (more content not included)... Normal [facility] CT NECK SOFT TISSUE W IVCONo n 10-24-2024 CT NECK SOFT TISSUE W IVCON * * *Final Report* * * DATE OF EXAM: Oct 24 2024 1:53PM [facility] 0013 - CT NECK SOFT TISSUE W IVCON / PROCEDURE REASON: Thyroglossal duct cyst * * * * Physician Interpretation * * * * EXAMINATION: CT NECK SOFT TISSUE W IVCON HISTORY: Thyroglossal duct cyst Technique: CT of the soft tissues of the neck with IV contrast. A series of contiguous helical scans were performed from the skull base to the aortic arch. M: CTNW_1 Contrast: 100 mL Omnip[address] Dose-Length Product (DLP): 451 mGy*cm CT Dose Reduction Employed: Automated exposure control(AEC) and iterative recon COMPARISON: Thyroid ultrasound 09/25/2024.. RESULT: Postoperative change: None apparent. There is a 4 x 6 mm (AP, TV) low-attenuation lesion in the deep soft tissues of the anterior neck abutting the anterior isthmus of the thyroid gland, suspicious for a thyroglossal duct cyst.. Suprahyoid Neck: Nasopharynx and oropharynx appear normal. Parapharyngeal tissue planes are preserved. Oral cavity and floor of mouth appear normal within constraints of artifact from dental amalgam. Parotid and submandibular spaces are normal. Solar Technician spaces appear normal. Infrahyoid Neck: Hypopharynx, larynx, and imaged infraglottic trachea appear normal. Imaged upper esophagus is unremarkable. Thyroid gland is homogeneous without evidence of discrete nodule. Lymph Nodes: No cervical lymphadenopathy by size criteria. Carotid Space: No masses. Patent extracranial carotid systems and internal jugular veins bilaterally. Orbits, Face and Skull Base: Orbital soft tissue planes are preserved. . Paranasal sinuses are clear. . Mastoid air cells and middle ear cavities are clear. . No evidence of an osteolytic or osteoblastic process in the skull base. . . Imaged intracranial contents: No enhancement, no mass effect, and no hydrocephalus. Cervical spine and remaining osseous structures: Alignment is normal. No discrete osteolytic or osteoblastic process. No significant spondylotic changes in the visualized spine. Lung apices: No mass and no focal consolidation in imaged lung apices. Other: Not applicable. Certified [employer] Engineer (topogram) images: No significant findings. IMPRESSION: Small 6 mm low-attenuation lesion in the deep soft tissues of the anterior neck abutting the anterior isthmus of the thyroid gland, suspicious for a thyroglossal duct cyst. Kettle Coordinator: [facility] Transcribe Date/Time: Oct 24 2024 2:39P Dictated by : SHERI KARIMI MD This examination was interpreted and the report reviewed and electronically signed by: SHERI KARIMI MD on Oct 24 2024 2:44PM EST [id number] Normal [facility] CT Neck W contrast [place] 06-2 IMPRESSION: Small 6 mm low-attenuation lesion in the deep soft tissues of the anterior neck abutting the anterior isthmus of the thyroid gland, suspicious for a thyroglossal duct cyst. Kettle Coordinator: [facility] Transcribe Date/Time: Oct 24 2024 2:39P Dictated by : SHERI KARIMI MD This examination was interpreted and the report reviewed and electronically signed by: SHERI KARIMI MD on Oct 24 2024 2:44PM EST DIVISION OF RADIOLOGY * * *Final Report* * * DATE OF EXAM: Oct 24 2024 1:53PM [facility] 0013 - CT NECK SOFT TISSUE W IVCON / PROCEDURE REASON: Thyroglossal duct cyst * * * * Physician Interpretation * * * * EXAMINATION: CT NECK SOFT TISSUE W IVCON HISTORY: Thyroglossal duct cyst Technique: CT of the soft tissues of the neck with IV contrast. A series of contiguous helical scans were performed from the skull base to the aortic arch. M: CTNW_1 Contrast: 100 mL Omnipaque [address] Dose-Length Product (DLP): 451 mGy*cm CT Dose Reduction Employed: Automated exposure control(AEC) and iterative recon COMPARISON: Thyroid ultrasound 09/25/2024.. RESULT: Postoperative change: None apparent. There is a 4 x 6 mm (AP, TV) low-attenuation lesion in the deep soft tissues of the anterior neck abutting the anterior isthmus of the thyroid gland, suspicious for a thyroglossal duct cyst.. Suprahyoid Neck: Nasopharynx and oropharynx appear normal. Parapharyngeal tissue planes are preserved. Oral cavity and floor of mouth appear normal within constraints of artifact from dental amalgam. Parotid and submandibular spaces are normal. Solar Technician spaces appear normal. Infrahyoid Neck: Hypopharynx, larynx, and imaged infraglottic trachea appear normal. Imaged upper esophagus is unremarkable. Thyroid gland is homogeneous without evidence of discrete nodule. Lymph Nodes: No cervical lymphadenopathy by size criteria. Carotid Space: No masses. Patent extracranial carotid systems and internal jugular veins bilaterally. Orbits, Face and Skull Base: Orbital soft tissue planes are preserved. . Paranasal sinuses are clear. . Mastoid air cells and middle ear cavities are clear. . No evidence of an osteolytic or osteoblastic process in the skull base. . . Imaged intracranial contents: No enhancement, no mass effect, and no hydrocephalus. Cervical spine and remaining osseous structures: Alignment is normal. No discrete osteolytic or osteoblastic process. No significant spondylotic changes in the visualized spine. Lung apices: No mass and no focal consolidation in imaged lung apices. Other: Not applicable. Certified [employer] Engineer (topogram) images: No significant findings. DIVISION OF RADIOLOGY Provider, [facility] - 10/24/2024 * * *Final Report* * * DATE OF EXAM: Oct 24 2024 1:53PM [facility] 0013 - CT NECK SOFT TISSUE W IVCON / PROCEDURE REASON: Thyroglossal duct cyst * * * * Physician Interpretation * * * * EXAMINATION: CT NECK SOFT TISSUE W IVCON HISTORY: Thyroglossal duct cyst Technique: CT of the soft tissues of the neck with IV contrast. A series of contiguous helical scans were performed from the skull base to the aortic arch. M: CTNW_1 Contrast: 100 mL Omnipaque [address] Dose-Length Product (DLP): 451 mGy*cm CT Dose Reduction Employed: Automated exposure control(AEC) and iterative recon COMPARISON: Thyroid ultrasound 09/25/2024.. RESULT: Postoperative change: None apparent. There is a 4 x 6 mm (AP, TV) low-attenuation lesion in the deep soft tissues of the anterior neck abutting the anterior isthmus of the thyroid gland, suspicious for a thyroglossal duct cyst.. Suprahyoid Neck: Nasopharynx and oropharynx appear normal. Parapharyngeal tissue planes are preserved. Oral cavity and floor of mouth appear normal within constraints of artifact from dental amalgam. Parotid and submandibular spaces are normal. Solar Technician spaces appear normal. Infrahyoid Neck: Hypopharynx, larynx, and imaged infraglottic trachea appear normal. Imaged upper esophagus is unremarkable. Thyroid gland is homogeneous without evidence of discrete nodule. Lymph Nodes: No cervical lymphadenopathy by size criteria. Carotid Space: No masses. Patent extracranial carotid systems and internal jugular veins bilaterally. Orbits, Face and Skull Base: Orbital soft tissue planes are preserved. . Paranasal sinuses are clear. . Mastoid air cells and middle ear cavities are clear. . No evidence of an osteolytic or osteoblastic process in the skull base. . . Imaged intracranial contents: No enhancement, no mass effect, and no hydrocephalus. Cervical spine and remaining osseous structures: Alignment is normal. No discrete osteolytic or osteoblastic process. No significant spondylotic changes in the visualized spine. Lung apices: No mass and no focal consolidation in imaged lung apices. Other: Not applicable. Certified [employer] Engineer (topogram) images: No significant findings. IMPRESSION IMPRESSION: Small 6 mm low-attenuation lesion in the deep soft tissues of the anterior neck abutting the anterior isthmus of the thyroid gland, suspicious for a thyroglossal duct cyst. Kettle Coordinator: NEGRITA Transcribe Date/Time: Oct 24 2024 2:39P Dictated by : SHERI KARIMI MD This examination was interpreted and the report reviewed and electronically signed by: SHERI KARIMI MD on Oct 24 2024 2:44PM EST [facility] Radiology Study observation (narrative) [facility] [facility] CT Neck W contrast IVOrdered By: Ccf Provider on 10-24-2024 [facility] CNOVon 10-10-2024 CNOV Office Visit (ENWSTR ) -------- REJI LORENZO ([id number]) 1995 F NFR Date Time Provider Department 10/10/24 8:00 AM HEIDI RAMIREZ ENWSTR During your visit today, we recorded the following information about you: Temperature Pulse Blood pressure Weight 98.3 degrees 55/minute 90/70 52 kg Last Period 09/29/24 Heidi Ramirez MD 10/10/2024 9:48 AM Signed [facility] Initial Clinic Visit Note NAME: Reji Lorenzo PCP: Celi Murray MD Requesting Provider: Celi Murray MD [address] [facility] [address] My final recommendations will be communicated back to the requesting physician by way of shared medical record or letter via US mail. Chief Complaint: Thyroglossal duct cyst HPI: Reji Lorenzo is a 28 year old female was referred for evaluation of thyroglossal cyst History in brief, she reports having GI issues, with recurrent episodes of emesis for atleast 8 months now, associated with epigastric pain, is following GI. She also reports having issues with menstrual cycles, and when she was getting ready for one of these appointments one morning, she noticed a lump in her neck while doing makeup. She followed up with her PCP, and was noticed to have a swelling in neck for which thyroid labs and thyroid ultrasound showing a possible thyroglossal cyst, followed by referral to Endocrinology Related symptoms: Swallowing difficulty: no, but she reports feeling pressure like sensation when swallowing especially with big chunks Shortness of breath when lying flat: no Hoarseness of voice: no Denied any pain History of radiation exposure to the neck: no No environmental or occupational exposure to radioactive materials such as proximity to nuclear plants or living in areas of endemic high radioactivity History of smoking: since age 16, 1 PPD- now she is trying to switch to non-nicotine vaping Family history of thyroid cancer: mother recently diagnosed with thyroid cancer Family history of thyroid nodules: as above Reports sweating a lot For GI evaluation, she underwent endoscopies and was noted to have gastritis, negative for H pylori. Today., she also reports intermittent non painful swelling of her right foot, asks if this is thyroid related. On further questioning, no known autoimmune issues specifically She had active Hep C, for 2 to 2.5 years ago when she was in addiction with heroine IV abuse, in recovery for 30 months PAST MEDICAL HISTORY Diagnosis Date ADHD (attention deficit hyperactivity disorder) Anemia complicating (HCC) 12/31/2014 Anxiety Bipolar disorder (HCC) Chlamydia Chronic active hepatitis (HCC) 03/01/2022 Depression Depression 03/17/2014 fracture 11 years old collarbone Fracture age 7 left leg Hepatitis C Herpes simplex without mention of complication History of bleeding ulcers History of heroin use Ovarian cyst PID (acute pelvic inflammatory disease) Polysubstance abuse (HCC) Cocaine, heroin, benzos, methamphetamines Seizure (HCC) 03/01/2022 PAST SURGICAL HISTORY Procedure Laterality Date DELIVERY ONLY 04/16/2018 C/S low transverse ESOPHAGOGASTRODUODENOSCO PY TRANSORAL DIAGNOSTIC 06/08/2014 EGD LAPS SURG CHOLECYSTECTOMY W/CHOLANGIOGRAPHY 03/06/2022 PAST SURGICAL HISTORY OF 09/21/2021 fallopian tubes removed ALLERGIES Allergen Reactions Benadryl [Diphenhyd* Other: See Comments Hyper/anxiety Clindamycin Rash Rash and facial swelling Penicillins Rash Social History Tobacco Use Smoking status: Every Day Current packs/day: 1.00 Average packs/day: 1 pack/day for 14.6 years (14.6 ttl pk-yrs) Types: Cigarettes Start date: 03/17/2010 Smokeless tobacco: Never Vaping Use Vaping status: current everyday user Substances: Nicotine Substance Use Topics Alcohol use: No Drug use: Not Currently Types: Marijuana Comment: kirill Monsivais at today's visit 03/16/2017 FAMILY HISTORY Problem Relation Age of Onset Alcohol/Drug Mother Alcohol/Drug Father Seizures Sister other (SIDS) Brother Breast Cancer Maternal Grandmother Cancer Paternal Grandmother Lymphoma Cancer Paternal Grandfather Diabetes Paternal Grandfather Paternal/Materal sides MEDICATIONS: Current Outpatient Medications on File Prior to Visit Medication Sig famotidine (PEPCID) 40 mg tablet Take 40 mg by mouth daily at bedtime. lansoprazole (PREVACID) 30 mg capsule Take 1 capsule by mouth every 12 hours. ondansetron orally disintegrating (ZOFRAN ODT) 4 mg disintegrating tablet Take by mouth. TAKE 1 TABLET BY MOUTH EVERY 8 HOURS NEEDED FOR NAUSEA fluticasone (FLONASE) 50 mcg/actuation nasal spray Use 1-2 sprays in each nostril once daily. benzonatate (TESSALON PERLE) 100 mg capsule Take 1-2 capsules by mouth three times a day as n (more content not included)... Normal [facility] US THYROID/PARATHYROIDon US THYROID/PARATHYROID * * *Final Report* * * DATE OF EXAM: Sep 25 2024 11:48AM [facility] 1048 - US THYROID/PARATHYROID / PROCEDURE REASON: multiple diagnoses * * * * Physician Interpretation * * * * EXAMINATION: THYROID ULTRASOUND CLINICAL HISTORY: Thyroid nodule Enlarged thyroid TECHNIQUE: Sonography and Doppler imaging of the thyroid was performed. Images were obtained and stored in a permanent archive. MQ: UST_1 COMPARISON: None. RESULT: Right Lobe: 6.0 cm x 1.4 cm x 1.4 cm; homogeneous echogenicity, expected vascular flow. Left Lobe: 5.9 cm x 1.4 cm x 1.3 cm; homogeneous echogenicity, expected vascular flow. Isthmus: 0.1 cm Nodules: There is a 4 x 8 x 11 mm well-defined cyst anterior to the isthmus. IMPRESSION: Enlarged bilateral thyroid. Well defined cyst anterior to the isthmus may represent thyroglossal duct cyst or exophytic thyroid cyst from isthmus. Kettle Coordinator[facility] Transcribe Date/Time: Sep 25 2024 12:00P Dictated by : MALVIN MAYO MD This examination was interpreted and the report reviewed and electronically signed by: MALVIN MAYO MD on Sep 25 2024 12:03PM EST [id number] Normal [facility] CNOVon 09-23-2024 CNOV Office Visit (FAMPWS ) -------- REJI LORENZO ([id number]) 1995 F NFR Date Time Provider Department 09/23/24 11:40 AM AMANDA REYES During your visit today, we recorded the following information about you: Pulse Respiration Blood pressure Weight 65/minute 18/minute 106/64 52.3 kg Amanda Reyes APRN.CNP 09/23/2024 12:13 PM Signed 09/23/2024 Patient presents with: Follow Up Recording using [employer] software for draft documentation of the visit was discussed with the patient/authorized hotel services sales representative; all questions welcomed and answered. Patient/authorized hotel services sales representative agreed to proceed SUBJECTIVE: This is a 28 year old that is here today for Above Complaints.. Weight Loss: - Recent weight loss; current weight is 115 lbs, previously 114 lbs. - Denies changes in dietary habits; typically consumes one meal per day (dinner) with a snack afterward. - Denies use of illicit drugs. Hair Thinning: - Noticed significant hair thinning over the past two months, especially around the hairline. - Denies recent illness or use of harsh hair products. - No bald spots or receding hairline observed. Hepatitis C: - History of hepatitis C; recent labs show positive antibody but no RNA detected. Thyroid Nodule: - Recent labs show normal thyroid levels. - Family history of thyroid cancer in mother, who had normal thyroid levels at the time of diagnosis. - Scheduled for a thyroid ultrasound. GI Issues: - Ongoing GI issues; scheduled for a gastric emptying study on Sunday. - Recent upper and lower scopes performed; awaiting results. - History of ulcers at age 16. - No gallbladder. PAST MEDICAL HISTORY Diagnosis Date ADHD (attention deficit hyperactivity disorder) Anemia complicating ([facility]) 12/31/2014 Anxiety Bipolar disorder (HCC) Chlamydia Chronic active hepatitis (HCC) 03/01/2022 Depression Depression 03/17/2014 fracture 11 years old collarbone Fracture age 7 left leg Hepatitis C Herpes simplex without mention of complication History of bleeding ulcers History of heroin use Ovarian cyst PID (acute pelvic inflammatory disease) Polysubstance abuse ([facility]) Cocaine, heroin, benzos, methamphetamines Seizure ([facility]) 03/01/2022 ALLERGIES Benadryl [Diphenhydramine Hcl], Clindamycin, and Penicillins MEDICATIONS Current Outpatient Medications Medication Sig famotidine (PEPCID) 40 mg tablet Take 40 mg by mouth daily at bedtime. lansoprazole (PREVACID) 30 mg capsule Take 1 capsule by mouth every 12 hours. ondansetron orally disintegrating (ZOFRAN ODT) 4 mg disintegrating tablet Take by mouth. TAKE 1 TABLET BY MOUTH EVERY 8 HOURS NEEDED FOR NAUSEA fluticasone (FLONASE) 50 mcg/actuation nasal spray Use 1-2 sprays in each nostril once daily. benzonatate (TESSALON PERLE) 100 mg capsule Take 1-2 capsules by mouth three times a day as needed. No current facility-administered medications for this visit. Medications and allergies reviewed by this provider. SOCIAL HISTORY Social History Tobacco Use Smoking status: Every Day Current packs/day: 1.00 Average packs/day: 1 pack/day for 14.5 years (14.5 ttl pk-yrs) Types: Cigarettes Start date: 03/17/2010 Smokeless tobacco: Never Vaping Use Vaping status: current everyday user Substances: Nicotine Substance Use Topics Alcohol use: No Drug use: Not Currently Types: Marijuana Comment: Heroine, denies at today's visit 03/16/2017 REVIEW OF SYSTEMS All other reviewed and negative other than HPI. OBJECTIVE: BP 106/64 Pulse 65 Resp 18 Wt 52.3 kg (115 lb 6.4 oz) LMP 07/31/2023 (Approximate) BMI 21.11 kg/m? . Vital signs reviewed by this provider. APPEARANCE Well appearing, alert, in no acute distress, well-hydrated, well nourished. Latest Ref Rng 09/19/2024 WBC 3.70 - 11.00 k/uL 9.57 RBC 3.90 - 5.20 m/uL 4.36 Hemoglobin 11.5 - 15.5 g/dL 13.2 Hematocrit 36.0 - 46.0 % 38.9 MCV 80.0 - 100.0 fL 89.2 MCH 26.0 - 34.0 pg 30.3 MCHC 30.5 - 36.0 g/dL 33.9 RDW-CV 11.5 - 15.0 % 13.2 Platelet Count 150 - 400 k/uL 263 MPV 9.0 - 12.7 fL 10.1 Neut% % 67.1 Abs Neut (ANC) 1.45 - 7.50 k/uL 6.42 Lymph% % 26.6 Abs Lymph 1.00 - 4.00 k/uL 2.55 Stark% % 4.0 Abs Stark <0.87 k/uL 0.38 Eosin% % 1.4 Abs Eosin <0.46 k/uL 0.13 Baso% % 0.7 Abs Baso <0.11 k/uL 0.07 Immature Gran % % 0.2 IMMATURE GRANS (ABS) <0.10 k/uL <0.03 NRBC /100 WBC 0.0 Absolute nRBC <0.01 k/uL <0.01 DTYPE Auto Protein, Total 6.3 - 8.0 g/dL 7.8 Albumin 3.9 - 4.9 g/dL 4.7 Calcium 8.5 - 10.2 mg/dL 10.1 Bilirubin, Total 0.2 - 1.3 mg/dL 0.3 Alkaline Phosphatase 34 - 123 U/L 51 AST 13 - 35 U/L 31 ALT 7 - 38 U/L 22 Glucose 74 - 99 mg/dL 104 (H) BUN 7 - 21 mg/dL 10 Creatinine 0.58 - 0.96 mg/dL 0.76 Sodium 136 - 144 mmol/L 138 Potassium 3.7 - 5.1 mmol/L 4.2 Chloride 98 - 107 mmol/L 103 CO2 22 - 30 mmol/L 2 (more content not included)... Normal [facility] PAP I-G w/rfx hrHPV-Aptimaon 09-22-2024 ADEQ Comment Normal [facility] Comment on above: Order Comment: Speci men Comment: [id number] Specimen Comment: No. of containers..01 ThinPrep Vial Result Comment: Sati sfactory for evaluation. No endocervical component is identified. Performed By: #### L 7400.0353 #### [facility] [address] [place], [address] COMM . Normal [facility] Comment on above: Order Comment: Speci men Comment: [id number] Specimen Comment: No. of containers..01 ThinPrep Vial Performed By: #### L 7400.0353 #### [facility] [address] [place], [address] COMMENT Comment Normal . [facility] Comment on above: Order Comment: Speci men Comment: [id number] Specimen Comment: No. of containers..01 ThinPrep Vial Result Comment: This liquid based ThinPrep(R) pap test was screened with the use of an image guided system. Performed By: #### L 7400.0353 #### [facility] [address] [place], [address] DIAG Comment Normal . [facility] Comment on above: Order Comment: Speci men Comment: [id number] Specimen Comment: No. of containers..01 ThinPrep Vial Result Comment: NEGA TIVE FOR INTRAEPITHELIAL LESION OR MALIGNANCY. Performed By: #### L 7400.0353 #### [facility] [address] [place], [address] HPV RFLX Comment Normal [facility] Comment on above: Order Comment: Speci men Comment: [id number] Specimen Comment: No. of containers..01 ThinPrep Vial Result Comment: The HPV DNA reflex criteria were not met with this specimen result therefore, no HPV testing was performed. Performed at: [address] [id number] Hard Candy Batch Mixer: Ely Bermeo MD, Phone: [phone] Performed By: #### L 7400.0353 #### [facility] [address] [place], [address] PAPSMR Comment Normal . [facility] Comment on above: Order Comment: Speci men Comment: [id number] Specimen Comment: No. of containers..01 ThinPrep Vial Result Comment: The Pap smear is a screening test designed to aid in the detection of premalignant and malignant conditions of the uterine cervix. It is not a diagnostic procedure and should not be used as the sole means of detecting cervical cancer. Both false-positive and false-negative reports do occur. Performed By: #### L 7400.0353 #### [facility] [address] [place], [place], [address] PERFORM Comment Normal [facility] Comment on above: Order Comment: Speci men Comment: [id number] Specimen Comment: No. of containers..01 ThinPrep Vial Result Comment: Peace Moore Finisher Map And Chart (ASCP) Performed By: #### L 7400.0353 #### [facility] [address] [place], [place], [address] Pelvic w/ Transvaginalon Pelvic w/ Transvaginal [facility] [address] [place], [place] [address] Pelvic w/ Transvaginal MR#: [id number] Acct: [id number] Name: REJI LORENZO Rep #: [id number] : 1995 F 28 From: Rashid Roberto MD PCP: Dr. Nando Murray MD Status: REG CLI Study: Pelvic w/ Transvaginal Date of Exam: 09/22/24 Exam# [id number] Ordering Dr: Shelby Meléndez AMPOULE EXAMINER-C PROCEDURE: PELVIC W/ TRANSVAGINAL 09/22/2024 REASON FOR EXAM: PELVIC PAIN/LUMP TECHNIQUE: Transabdominal and transvaginal pelvic ultrasound. Color doppler analysis of the ovaries. COMPARISON: None. FINDINGS: Measurements: Uterus: 8.4 x 4.3 x 5.7 cm for volume of 106.6 mL Endometrial Thickness: 0.8 Right Ovary: 3.3 x 2.5 x 3.0 cm for volume of 12.9 mL Left Ovary: 3.8 x 2.7 x 3.3 cm for volume of 17.6 mL Uterus: Anteverted. Normal contour and myometrial echotexture. Nabothian cysts at the cervix. Endometrium: Normal echotexture. Right ovary: There is a questionable lesion within the right ovary measuring 2.4 x 1.7 x 1.5 cm which is similar echogenicity to surrounding ovarian parenchyma and demonstrates minimal internal vascularity on color Doppler evaluation. Additionally, there is suggestion of a mixed cystic and solid lesion in the right ovary with peripheral vascularity measuring 1.2 x 0.8 x 1.0 cm. Left ovary: There is a questionable predominantly solid lesion with scattered cystic spaces in the left ovary measuring 2.8 by 2.4 x 2.6 cm, without significant internal vascularity. Cul-de-sac: No free intraperitoneal fluid identified. US/Pelvic w/ Transvaginal IMPRESSION: Questionable solid lesions in both ovaries, measuring up to 2.4 cm on the right and 2.8 cm on the left. Given nonspecific nature, recommend follow-up ultrasound within 3 months and Gynecology referral (if not already performed) per O-RADS guidelines. Recommend cine images are performed on the subsequent ultrasound. Reading Location: [id number] CC: ELICEO Meléndez; Dr. Nando Murray MD Kettle Coordinator: Signed [facility] CBC W Auto Differential pane l (Bld)on 09-19-2024 Basophils (Bld) [#/Vol] 0.07 10*3/uL Normal <0.11 [facility] Comment on above: Order Comment: Speci men Type: BLOOD SPECIMENOrdering Facility: [facility] Address: [address] [place] [address] Performed By: #### 5 7021-8 ####[facility] LABCLIA [id number] [place] [address] [place] Basophils/100 WBC (Bld) 0.7 % Normal [facility] Comment on above: Order Comment: Speci men Type: BLOOD SPECIMENOrdering Facility: [facility] Address: [address] [place] [address] Performed By: #### 5 7021-8 ####[facility]CL[facility] [id number] [place] [address] [place] Differential cell count method Nom (Bld) Auto Normal [facility] Comment on above: Order Comment: Speci men Type: BLOOD SPECIMENOrdering Facility: [facility] Address: [address] [place] [address] Performed By: #### 5 7021-8 ####[facility]CL[facility] [id number] [place] [address] [place] Eosinophils (Bld) [#/Vol] 0.13 10*3/uL Normal <0.46 [facility] Comment on above: Order Comment: Speci men Type: BLOOD SPECIMENOrdering Facility: [facility] Address: [address] [place] [address] Performed By: #### 5 7021-8 ####[facility]CL[facility] [id number] [place] [address] [place] Eosinophils/100 WBC (Bld) 1.4 % Normal [facility] Comment on above: Order Comment: Speci men Type: BLOOD SPECIMENOrdering Facility: [facility] Address: [address] [place] [address] Performed By: #### 5 7021-8 ####[facility] LABCLIA [id number] [place] [id number] [place] Erythrocyte distribution width (RBC) [Ratio] 13.2 % Normal 11.5-15.0 [facility] Comment on above: Order Comment: Speci men Type: BLOOD SPECIMENOrdering Facility: [facility] Address: [address] [place] [address] Performed By: #### 5 7021-8 ####[facility]CL[facility] [id number] [place] [address] [place] Hematocrit (Bld) [Volume fraction] 38.9 % Normal 36.0-46.0 [facility] Comment on above: Order Comment: Speci men Type: BLOOD SPECIMENOrdering Facility: [facility] Address: [address] [place] [address] Performed By: #### 5 7021-8 ####[facility] LABIA [id number] [place] [address] [place] Hemoglobin (Bld) [Mass/Vol] 13.2 g/dL Normal 11.5-15.5 [facility] Comment on above: Order Comment: Speci men Type: BLOOD SPECIMENOrdering Facility: [facility] Address: [address] [place] [address] Performed By: #### 5 7021-8 ####[facility]IA [id number] [place] [address] [place] Immature granulocytes (Bld) [#/Vol] 10*3/uL Normal <0.10 [facility] Comment on above: Order Comment: Speci men Type: BLOOD SPECIMENOrdering Facility: [facility] Address: [address] [place] [address] Performed By: #### 5 7021-8 ####[facility]IA [id number] [place] [address] [place] Immature granulocytes/100 WBC (Bld) 0.2 % Normal [facility] Comment on above: Order Comment: Speci men Type: BLOOD SPECIMENOrdering Facility: [facility] Address: [address] [place] [address] Performed By: #### 5 7021-8 ####[facility]CL[facility] [id number] [place] [address] [place] Lymphocytes (Bld) [#/Vol] 2.55 10*3/uL Normal 1.00-4.00 [facility] Comment on above: Order Comment: Speci men Type: BLOOD SPECIMENOrdering Facility: [facility] Address: [address] [place] [address] Performed By: #### 5 7021-8 ####[facility] LABIA [id number] [place] [address] [place] Lymphocytes/100 WBC (Bld) 26.6 % Normal [facility] Comment on above: Order Comment: Speci men Type: BLOOD SPECIMENOrdering Facility: [facility] Address: [address] [place] [address] Performed By: #### 5 7021-8 ####[facility]IA [id number] [place] [address] [place] MCH (RBC) [Entitic mass] 30.3 pg Normal 26.0-34.0 [facility] Comment on above: Order Comment: Speci men Type: BLOOD SPECIMENOrdering Facility: [facility] Address: [address] [place] [address] Performed By: #### 5 7021-8 ####[facility]IA [id number] [place] [address] [place] MCHC (RBC) [Mass/Vol] 33.9 g/dL Normal 30.5-36.0 [facility] Comment on above: Order Comment: Speci men Type: BLOOD SPECIMENOrdering Facility: [facility] Address: [address] [place] [address] Performed By: #### 5 7021-8 ####[facility]IA [id number] [place] [address] [place] MCV (RBC) [Entitic vol] 89.2 fL Normal 80.0-100.0 [facility] Comment on above: Order Comment: Speci men Type: BLOOD SPECIMENOrdering Facility: [facility] Address: [address] [place] [address] Performed By: #### 5 7021-8 ####[facility]CL[facility] [id number] [facility] [place] [id number] [address] [place] Monocytes (Bld) [#/Vol] 0.38 10*3/uL Normal <0.87 [facility] Comment on above: Order Comment: Speci men Type: BLOOD SPECIMENOrdering Facility: [facility] Address: [address] [place] [address] Performed By: #### 5 7021-8 ####[facility]CL[facility] [id number] [facility] [address], [facility] [place] Monocytes/100 WBC (Bld) 4.0 % Normal [facility] Comment on above: Order Comment: Speci men Type: BLOOD SPECIMENOrdering Facility: [facility] Address: [address] [place] [address] Performed By: #### 5 7021-8 ####[facility] [id number] [facility] [address], [place] [address] [place] Neutrophils (Bld) [#/Vol] 6.42 10*3/uL Normal 1.45-7.50 [facility] Comment on above: Order Comment: Speci men Type: BLOOD SPECIMENOrdering Facility: [facility] Address: [address] [place] [address] Performed By: #### 5 7021-8 ####[facility] [id number] [facility] [address], [facility] [place] Neutrophils/100 WBC (Bld) 67.1 % Normal [facility] Comment on above: Order Comment: Speci men Type: BLOOD SPECIMENOrdering Facility: [facility] Address: [address] [place] [address] Performed By: #### 5 7021-8 ####[facility] [id number] [facility] [address] [place] [address] [place] Nucleated RBC (Bld) [#/Vol] 10*3/uL Normal <0.01 [facility] Comment on above: Order Comment: Speci men Type: BLOOD SPECIMENOrdering Facility: [facility] Address: [address] [place] [address] Performed By: #### 5 7021-8 ####[facility] LABIA [id number] [address] [address] [place] Nucleated RBC/100 WBC (Bld) [Ratio] 0.0 /100 WBC Normal [facility] Comment on above: Order Comment: Speci men Type: BLOOD SPECIMENOrdering Facility: [facility] Address: [address] [place] [address] Performed By: #### 5 7021-8 ####[facility] [id number] [place] [address] [place] Platelet mean volume (Bld) [Entitic vol] 10.1 fL Normal 9.0-12.7 [facility] Comment on above: Order Comment: Speci men Type: BLOOD SPECIMENOrdering Facility: [facility] Address: [address] [place] [address] Performed By: #### 5 7021-8 ####[facility]IA [id number] [place] [address] [place] Platelets (Bld) [#/Vol] 263 10*3/uL Normal 150-400 [facility] Comment on above: Order Comment: Speci men Type: BLOOD SPECIMENOrdering Facility: [facility] Address: [address] [place] [address] Performed By: #### 5 7021-8 ####[facility] LABIA [id number] [place] [address] [place] RBC (Bld) [#/Vol] 4.36 10*6/uL Normal 3.90-5.20 [facility] Comment on above: Order Comment: Speci men Type: BLOOD SPECIMENOrdering Facility: [facility] Address: [address] [place] [address] Performed By: #### 5 7021-8 ####[facility] LABCLIA [id number] [place] [id number] [place] WBC (Bld) [#/Vol] 9.57 10*3/uL Normal 3.70-11.00 [facility] Comment on above: Order Comment: Speci men Type: BLOOD SPECIMENOrdering Facility: [facility] Address: [address] [place] [id number] Performed By: #### 5 7021-8 ####[facility] LABCLIA [id number] [place] [id number] [facility] [place] CNOVon 09-19-2024 CNOV Office Visit (FAMPWS ) -------- REJI LORENZO ([id number]) 1995 F R Date Time Provider Department 09/19/24 11:40 AM AMANDA REYES During your visit today, we recorded the following information about you: Pulse Respiration Blood pressure Weight 85/minute 18/minute 124/78 52.2 kg Amanda Reyes APRN.MANAGER PROVIDER RELATIONS 09/19/2024 12:26 PM Signed 09/19/2024 Patient presents with: Mass: To neck, noticed yesterday. Hard to swallow. Recording using [employer] software for draft documentation of the visit was discussed with the patient/authorized hotel services sales representative; all questions welcomed and answered. Patient/authorized hotel services sales representative agreed to proceed SUBJECTIVE: This is a 28 year old that is here today for Above Complaints.. Neck Mass: - Noticed a lump in the neck yesterday while doing makeup. - Mass is palpable when swallowing. - Denies dysphagia. - Mother had thyroid cancer. Unintentional Weight Loss: - Significant weight loss over the past few months. - Decreased appetite due to nausea. - Nausea began after a flu episode around [place]; wakes up to emesis and cannot lie down comfortably. - Undergoing evaluation by Dr. Merline Hills at [facility]. - Recent EGD and colonoscopy performed; bile noted in the stomach. - Gastric emptying study scheduled for the . - Hair thinning observed; denies alopecia. - Bruises easily on arms and legs. - History of hepatitis C, treated with Epclusa but did not complete treatment. Right Ankle Pain: - Acute onset of right ankle pain and swelling x2 days. - Denies known trauma or injury. PAST MEDICAL HISTORY Diagnosis Date ADHD (attention deficit hyperactivity disorder) Anemia complicating ([facility]) 12/31/2014 Anxiety Bipolar disorder ([facility]) Chlamydia Chronic active hepatitis ([facility]) 03/01/2022 Depression Depression 03/17/2014 fracture 11 years old collarbone Fracture age 7 left leg Hepatitis C Herpes simplex without mention of complication History of bleeding ulcers History of heroin use Ovarian cyst PID (acute pelvic inflammatory disease) Polysubstance abuse ([facility]) Cocaine, heroin, benzos, methamphetamines Seizure ([facility]) 03/01/2022 ALLERGIES Benadryl [Diphenhydramine Hcl], Clindamycin, and Penicillins MEDICATIONS Current Outpatient Medications Medication Sig famotidine (PEPCID) 40 mg tablet Take 40 mg by mouth daily at bedtime. lansoprazole (PREVACID) 30 mg capsule Take 1 capsule by mouth every 12 hours. ondansetron orally disintegrating (ZOFRAN ODT) 4 mg disintegrating tablet Take by mouth. TAKE 1 TABLET BY MOUTH EVERY 8 HOURS NEEDED FOR NAUSEA fluticasone (FLONASE) 50 mcg/actuation nasal spray Use 1-2 sprays in each nostril once daily. benzonatate (TESSALON PERLE) 100 mg capsule Take 1-2 capsules by mouth three times a day as needed. buprenorphine ER (SUBLOCADE) 100 mg/0.5 mL injection Inject 100 mg subcutaneously one time only. (Patient not taking: Reported on 08/17/2023) No current facility-administered medications for this visit. Medications and allergies reviewed by this provider. SOCIAL HISTORY Social History Tobacco Use Smoking status: Every Day Current packs/day: 1.00 Average packs/day: 1 pack/day for 14.5 years (14.5 ttl pk-yrs) Types: Cigarettes Start date: 03/17/2010 Smokeless tobacco: Never Vaping Use Vaping status: current everyday user Substances: Nicotine Substance Use Topics Alcohol use: No Drug use: Not Currently Types: Marijuana Comment: Wilmakirill lauren at today's visit 03/16/2017 REVIEW OF SYSTEMS All other reviewed and negative other than HPI. OBJECTIVE: BP 124/78 Pulse 85 Resp 18 Wt 52.2 kg (115 lb) LMP 07/31/2023 (Approximate) SpO2 94% BMI 21.03 kg/m? . Vital signs reviewed by this provider. GENERAL: NAD, alert and oriented. SKIN: Unremarkable, no rash or skin lesions. A couple of bruises to legs observed. HEAD: Normocephalic. EYES: PERRLA, EOMI, conjunctiva clear. EARS: External ears normal, canals clear, TM's normal. NOSE/SINUSES: Nares normal. Septum midline. OROPHARYNX: Lips, mucosa, and tongue normal, good dentition. No oral lesions noted. NECK: Thyroid enlarged with palpable nodule on right , tender to palpation. No bruits. LUNGS: Clear to auscultation bilaterally, no wheezes/rhonchi/rales. HEART: Regular rate and rhythm, no murmurs. No ectopy. EXTREMITIES: Right medial ankle with mild swelling, no erythema. No deformities. NEURO: Awake, alert and oriented x3, cranial nerves II-XII grossly intact, normal gait, no involuntary motions. Hepatitis A Vaccine(1 of 2 - Risk 2-dose series) Never done Pneumococcal Vaccine(1 of 2 - PCV) Never done Cervical Cancer Screening due on 09/13/2020 Covid-19 Vaccine() Never done Influenza Vaccine(Season Ended) due on 01/05/2025 DTaP,Tdap,Td Vaccine(10 - Td or T (more content not included)... Normal [facility] 09-19-2024 [place] Telephone (FAMPWS) -------- REJI LORENZO ([id number]) 1995 F NFR Date Time Provider Department 09/19/24 AMANDA REYES During your visit today, we recorded the following information about you: Amanda Reyes APRN.EDILBERTO 09/19/2024 9:21 AM Signed If patient is doing an ER follow-up will need to be 40 mintues- please schedule appropriately. Amanda Reyes APRN.Ashli Dillard LPN 09/19/2024 10:43 AM Signed Has not been seen in ER. Went to ED waited 4 hours and left. Ashli Garcia LPN Allergies As of Date: 09/19/2024 Noted Allergy Reaction BENADRYL (DIPHENHYDRAMINE HCL) 05/28/2014 14 - Other: See Comments Comments: Hyper/anxiety CLINDAMYCIN 02/15/2022 2 - Rash Comments: Rash and facial swelling PENICILLINS 06/19/2005 2 - Rash Date Reviewed: 09/10/2024 Reviewed by: Evi Kaufman APRN.MANAGER PROVIDER RELATIONS - Fully Assessed Prescriptions as of 09/19/2024 - fluticasone (FLONASE) 50 mcg/actuation nasal spray Use 1-2 sprays in each nostril once daily. - benzonatate (TESSALON PERLE) 100 mg capsule Take 1-2 capsules by mouth three times a day as needed. - omeprazole (PRILOSEC) 20 mg capsule Take 1 capsule by mouth once daily for 14 days. - buprenorphine ER (SUBLOCADE) 100 mg/0.5 mL injection Inject 100 mg subcutaneously one time only. 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*07/15/2014 02/25/2015 Rubella non-immune status, antepartum [O09.899,*07/16/2014 02/25/2015 Anemia complicating [O99.019] 12/31/2014 05/29/2016 Uterine size-date discrepancy [O26.849] 02/05/2015 02/25/2015 Anxiety [F41.9] 04/09/2015 with uncertain dates, antepartum [Z34*10/06/2016 09/13/2017 Tobacco use during , antepartum [O99.3*10/06/2016 09/13/2017 complicated by subutex maintenance, a*10/06/2016 History of depression [Z86.59] 10/06/2016 09/13/2017 Family history of herpes genitalis [Z83.1] 10/06/2016 09/13/2017 Supervision of high risk , antepartum *10/06/2016 09/13/2017 UTI in , antepartum [O23.40] 08/30/2017 History of depression [Z87.59, Z86.5*08/30/2017 Tobacco use [Z72.0] 08/30/2017 Nausea/vomiting in [O21.9] 08/30/2017 Patient requested diagnostic testing [Z01.89] 08/30/2017 Herpes simplex infection of genitourinary syste*09/13/2017 History of violence [Z87.898] 09/19/2017 Positive urine drug screen [R82.5] 09/21/2017 Zkkjb-aqt-lcjzn fetus, second trimester [O36.59*01/21/2018 Poor social situation [Z60.9] 01/22/2018 Antepartum anemia [O99.019] 01/22/2018 Anemia during [O99.019] 03/08/2018 ALEXANDRE (iron deficiency anemia) [D50.9] 03/08/2018 Iron malabsorption [K90.9] 03/08/2018 Breech presentation with problem [O32*03/26/2018 04/10/2018 ADHD [F90.9] 03/01/2022 Hx of drug abuse (HCC) [F19.11] 03/01/2022 Chronic active hepatitis (HCC) [K73.2] 03/01/2022 Seizure (HCC) [R56.9] 03/01/2022 Bipolar 1 disorder (HCC) [F31.9] 03/01/2022 Encounter Status:Closed by ASHLI GARCIA on 09/19/24 Normal [facility] metabolic 2000 panelon 09-19-2024 Albumin [Mass/Vol] 4.7 g/dL Normal 3.9-4.9 [facility] Comment on above: Order Comment: Speci men Type: BLOOD SPECIMENOrdering Facility: [facility] Address: [address] [place] [address] Performed By: #### 2 4323-8, 3053-6, 3024-7, 3016-3 ####[facility]IA [id number] [place] [address] [place] ALP [Catalytic activity/Vol] 51 U/L Normal 34-123 [facility] Comment on above: Order Comment: Speci men Type: BLOOD SPECIMENOrdering Facility: [facility] Address: [address] [place] [address] Performed By: #### 2 4323-8, 3053-6, 3024-7, 3016-3 ####[facility]IA [id number] [place] [address] [place] ALT [Catalytic activity/Vol] 22 U/L Normal 7-38 [facility] Comment on above: Order Comment: Speci men Type: BLOOD SPECIMENOrdering Facility: [facility] Address: [address] [place] [address] Performed By: #### 2 4323-8, 3053-6, 3024-7, 3016-3 ####[facility] [id number] [place] [address] [place] Anion gap [Moles/Vol] 14 mmol/L Normal 8-15 [facility] Comment on above: Order Comment: Speci men Type: BLOOD SPECIMENOrdering Facility: [facility] Address: [address] [place] [address] Performed By: #### 2 4323-8, 3053-6, 3024-7, 3016-3 ####[facility] LABCLIA [id number] [place] [id number] [place] AST [Catalytic activity/Vol] 31 U/L Normal 13-35 [facility] Comment on above: Order Comment: Speci men Type: BLOOD SPECIMENOrdering Facility: [facility] Address: [address] [place] [address] Performed By: #### 2 4323-8, 3053-6, 3024-7, 3016-3 ####[facility] LABCLIA [id number] [place] [address] [place] Bilirubin [Mass/Vol] 0.3 mg/dL Normal 0.2-1.3 [facility] Comment on above: Order Comment: Speci men Type: BLOOD SPECIMENOrdering Facility: [facility] Address: [address] [place] [address] Performed By: #### 2 4323-8, 3053-6, 3024-7, 3016-3 ####[facility] LABCLIA [id number] [place] [id number] [place] Calcium [Mass/Vol] 10.1 mg/dL Normal 8.5-10.2 [facility] Comment on above: Order Comment: Speci men Type: BLOOD SPECIMENOrdering Facility: [facility] Address: [address] [place], [place] [id number] Performed By: #### 2 4323-8, 3053-6, 3024-7, 3016-3 ####[facility] LABCLIA [id number] [place] [id number] [place] Chloride [Moles/Vol] 103 mmol/L Normal 98-107 [facility] Comment on above: Order Comment: Speci men Type: BLOOD SPECIMENOrdering Facility: [facility] Address: [address] [place] [address] Performed By: #### 2 4323-8, 3053-6, 3024-7, 3016-3 ####[facility] [id number] [place] [address] [place] CO2 [Moles/Vol] 21 mmol/L Low 22-30 [facility] Comment on above: Order Comment: Speci men Type: BLOOD SPECIMENOrdering Facility: [facility] Address: [address] [place] [address] Performed By: #### 2 4323-8, 3053-6, 3024-7, 3016-3 ####[facility]IA [id number] [address] [place] Creatinine [Mass/Vol] 0.76 mg/dL Normal 0.58-0.96 [facility] Comment on above: Order Comment: Speci men Type: BLOOD SPECIMENOrdering Facility: [facility] Address: [address] [place] [address] Performed By: #### 2 4323-8, 3053-6, 3024-7, 3016-3 ####[facility] [id number] [place] [address] [place] Creatinine and Glomerular filtration rate.predicted panel (S/P/Bld) 110 mL/min/1.73m??? Normal >=60 [facility] Comment on above: Order Comment: Speci men Type: BLOOD SPECIMENOrdering Facility: [facility] Address: [address] [place] [address] Result Comment: Rose Mary mated Glomerular Filtration Rate (eGFR) is calculated using the 2020 CKD-EPI creatinine equation. This equation utilizes serum creatinine, sex, and age as parameters. The creatinine assay has traceable calibration to isotope dilution-mass spectrometry. Refer to KDIGO guidelines for clinical interpretation. In patients with unstable renal function, e.g. those with acute kidney injury, the eGFR may not accurately reflect actual GFR. Performed By: #### 2 4323-8, 3053-6, 3024-7, 3016-3 ####[facility] LABCLIA [id number] [facility] [address] [address] [place] Glucose [Mass/Vol] 104 mg/dL High 74-99 [facility] Comment on above: Order Comment: Speccong perez Type: BLOOD SPECIMENOrdering Facility: [facility] Address: [address] [place] [address] Result Comment: The [place] Diabetes Association (ADA) provides guidance for cutoff values for fasting glucose and random glucose. The ADA defines fasting as no caloric intake for at least 8 hours. Fasting plasma glucose results between 100 to 125 mg/dL indicate increased risk for diabetes (prediabetes). Fasting plasma glucose results greater than or equal to 126 mg/dL meet the criteria for diagnosis of diabetes. In the absence of unequivocal hyperglycemia, results should be confirmed by repeat testing. In a patient with classic symptoms of hyperglycemia or hyperglycemic crisis, random plasma glucose results greater than or equal to 200 mg/dL meet the criteria for diagnosis of diabetes. Reference: Standards of Medical Care in Diabetes 2016, [place] Diabetes Association. Diabetes Care. 2016.39(Suppl 1). Performed By: #### 2 4323-8, 3053-6, 4-7, 6-3 ####[facility] LABCLIA [id number] [facility] [address] [address] [place] Potassium [Moles/Vol] 4.2 mmol/L Normal 3.7-5.1 [facility] Comment on above: Order Comment: Kvng perez Type: BLOOD SPECIMENOrdering Facility: [facility] Address: [address] [place] [address] Performed By: #### 2 4323-8, 3053-6, 3024-7, 6-3 ####[facility] LABCLIA [id number] [facility] [id number] [id number] [place] Protein [Mass/Vol] 7.8 g/dL Normal 6.3-8.0 [facility] Comment on above: Order Comment: Speci men Type: BLOOD SPECIMENOrdering Facility: [facility] Address: [address] [place] [address] Performed By: #### 2 4323-8, 3053-6, 3024-7, 3016-3 ####[facility] LABCLIA [id number] [place] [address] [place] Sodium [Moles/Vol] 138 mmol/L Normal 136-144 [facility] Comment on above: Order Comment: Speci men Type: BLOOD SPECIMENOrdering Facility: [facility] Address: [address] [place] [address] Performed By: #### 2 4323-8, 3053-6, 3024-7, 3016-3 ####[facility] [id number] [place] [address] [place] Urea nitrogen [Mass/Vol] 10 mg/dL Normal 7-21 [facility] Comment on above: Order Comment: Speci men Type: BLOOD SPECIMENOrdering Facility: [facility] Address: [address] [place] [address] Performed By: #### 2 4323-8, 3053-6, 3024-7, 3016-3 ####[facility] [id number] [place] [address] [place] HCV Ab Ser Qlon 09-19-2024 HCV Ab Ql (S) Positive Abnormal Negative [facility] Comment on above: Order Comment: Speci men Type: BLOOD SPECIMENOrdering Facility: [facility] Address: [address] [place] [address] Performed By: #### 1 1011-4, 10524-3 ####[facility] LABCLIA [id number] [place] [address] [place] HCV RNA ITA+probe Qnon 09-19 HCV RNA ITA+probe Ql Not detected Normal Not detected [facility] Comment on above: Order Comment: Speci men Type: BLOOD SPECIMENOrdering Facility: [facility] Address: [address] [place] [address] Performed By: #### 1 1011-4, 20331-8 ####[facility] LABCLIA [id number] [place] [address] [place] HIV 1+2 Ab IA Qlon 5 HIV 1 and 2 Ab IA.rapid Nom (S/P/Bld) Normal [facility] Comment on above: Order Comment: Speci men Type: BLOOD SPECIMENOrdering Facility: [facility] Address: [address] [place] [address] Result Comment: Test not indicated. Performed By: #### 3 1201-7 ####[facility] [id number] [address] [place] HIV 1+2 Ab+HIV1 p24 Ag IA Ql Non-Reactive Normal Nonreactive [facility] Comment on above: Order Comment: Speci men Type: BLOOD SPECIMENOrdering Facility: [facility] Address: [address] [place] [address] Performed By: #### 3 1201-7 ####[facility] [id number] [address] OF [place] HIV immunoassay testing algorithm interpretation (S/P/Bld) [Interp] Normal [facility] Comment on above: Order Comment: Speci men Type: BLOOD SPECIMENOrdering Facility: [facility] Address: [address] [place] [address] Result Comment: No e vidence of HIV-1 or HIV-2 infection. Should recent infection be suspected, repeat testing may be considered 2-3 weeks after this draw. [place] Rev. Code 3701.243(E): This information has been disclosed to you from confidential records protected from disclosure by state law. You shall make no further disclosure of this information without the specific, written, and informed release of the individual to whom it pertains or as otherwise permitted by state law. A general authorization for the release of medical or other information is not sufficient for the purpose of the release of HIV test results or diagnoses. Performed By: #### 3 1201-7 ####[facility] [id number] [place] [id number] [place] T3 SerPl-mCncon 09-19-2024 T3 [Mass/Vol] 120 ng/dL Normal 79-165 [facility] Comment on above: Order Comment: Speci men Type: BLOOD SPECIMENOrdering Facility: [facility] Address: [address] [place] [address] Performed By: #### 2 4323-8, 3053-6, 3024-7, 3016-3 ####[facility] [id number] [place] [address] [place] T4 Free SerPl-mCncon 025 Free T4 [Mass/Vol] 1.3 ng/dL Normal 0.9-1.7 [facility] Comment on above: Order Comment: Speci men Type: BLOOD SPECIMENOrdering Facility: [facility] Address: [address] [place] [address] Performed By: #### 2 4323-8, 3053-6, 3024-7, 3016-3 ####[facility] [id number] [place] [id number] [place] TSH SerPl-aCncon 09-19-2024 TSH Qn 0.478 m[IU]/L Normal 0.270-4.200 [facility] Comment on above: Order Comment: Speci men Type: BLOOD SPECIMENOrdering Facility: [facility] Address: [address] [place] [address] Result Comment: If t he patient is , TSH reference range varies by gestational period: First Trimester (weeks 9-12): 0.180-2.990 mIU/L Second Trimester: 0.110-3.980 mIU/L Third Trimester: 0.480-4.710 mIU/L Serjio Pratt et al. A Practical Approach for the Verifications and Determination of Site- and Trimester-Specific Reference Intervals for Thyroid Function tests in . Thyroid, 2019:29:3:412-420. Cam Lauren, et al. 2017 Guidelines of the [place] Thyroid Association for the Diagnosis and Management of Thyroid Disease during and the . Thyroid, 2017:27:3:315-389. Performed By: #### 2 4323-8, 3053-6, 3024-7, 3016-3 ####[facility] LABCLIA [id number] [address] [facility] XR ANKLE 3V AP/LAT/OBL RTon 09-19-2024 XR ANKLE 3V AP/LAT/OBL RT * * *Final Report* * * DATE OF EXAM: Sep 19 2024 12:30PM WOX [id number] - XR ANKLE 3V AP/LAT/OBL RT / PROCEDURE REASON: Acute right ankle pain * * * * Physician Interpretation * * * * EXAM(s): XR ANKLE 3V AP/LAT/OBL RT..... HISTORY: 28 years old Clinical information: Acute right ankle pain woke up yesterday with pain anterior ankle with swelling denies inj TECHNIQUE: Images: XR ANKLE 3V AP/LAT/OBL RT Comparison: None. RESULT: Findings: Radiographically normal right ankle without evidence of joint space narrowing, intra-articular loose body, fracture, dislocation, or soft tissue abnormality. Tarsal bones intact.. IMPRESSION: No acute abnormality Kettle Coordinator: NEGRITA Transcribe Date/Time: Sep 19 2024 1:51P Dictated by : MOHSEN WITT MD This examination was interpreted and the report reviewed and electronically signed by: MOHSEN WITT MD on Sep 19 2024 1:52PM EST [id number] Normal [facility] XR Ankle - right AP and Late ral and obliqueon 09-19-2024 IMPRESSION: No acute abnormality Kettle Coordinator: NEGRITA Transcribe Date/Time: Sep 19 2024 1:51P Dictated by : MOHSEN WITT MD This examination was interpreted and the report reviewed and electronically signed by: MOHSEN WITT MD on Sep 19 2024 1:52PM EST DIVISION OF RADIOLOGY * * *Final Report* * * DATE OF EXAM: Sep 19 2024 12:30PM WOX [id number] - XR ANKLE 3V AP/LAT/OBL RT / PROCEDURE REASON: Acute right ankle pain * * * * Physician Interpretation * * * * EXAM(s): XR ANKLE 3V AP/LAT/OBL RT..... HISTORY: 28 years old Clinical information: Acute right ankle pain woke up yesterday with pain anterior ankle with swelling denies inj TECHNIQUE: Images: XR ANKLE 3V AP/LAT/OBL RT Comparison: None. RESULT: Findings: Radiographically normal right ankle without evidence of joint space narrowing, intra-articular loose body, fracture, dislocation, or soft tissue abnormality. Tarsal bones intact.. DIVISION OF RADIOLOGY Provider, Kamron Tello [facility] - 09/19/2024 * * *Final Report* * * DATE OF EXAM: Sep 19 2024 12:30PM WOX 5297 - XR ANKLE 3V AP/LAT/OBL RT / PROCEDURE REASON: Acute right ankle pain * * * * Physician Interpretation * * * * EXAM(s): XR ANKLE 3V AP/LAT/OBL RT..... HISTORY: 28 years old Clinical information: Acute right ankle pain woke up yesterday with pain anterior ankle with swelling denies inj TECHNIQUE: Images: XR ANKLE 3V AP/LAT/OBL RT Comparison: None. RESULT: Findings: Radiographically normal right ankle without evidence of joint space narrowing, intra-articular loose body, fracture, dislocation, or soft tissue abnormality. Tarsal bones intact.. IMPRESSION IMPRESSION: No acute abnormality Kettle Coordinator: PSCB Transcribe Date/Time: Sep 19 2024 1:51P Dictated by : MOHSEN WITT MD This examination was interpreted and the report reviewed and electronically signed by: MOHSEN WITT MD on Sep 19 2024 1:52PM [facility] Radiology Study observation (narrative) [facility] XR Ankle - right AP and Late ral and obliqueOrdered By: Ccf Provider on 09-19-2024 [facility] CNPRenee 09-18-2024 CNPN Telephone (FAMPWS) -------- REJI LORENZO ([id number]) 1995 F NFR Date Time Provider Department 09/18/24 ARLINE GATES During your visit today, we recorded the following information about you: Mallory Sevilla RN 09/18/2024 11:42 AM Signed Pt called in and wanted to know if provider would put in labs for her to get before her appointment on 09/19/24. She states she took her son to see his pediatric provider and the had felt a lump on the side of her neck and he felt it and she said he told her it felt like it could be a thyroid nodule. She states he mom had thyroid cancer. She also reports that she woke up yesterday and her R ankle was swollen and hurt to put pressure on. I told her she only has a 20 min appointment and the provider would be able to go over all these issues. She said she told them she would need a longer appointment. I told her I could move her to see Amanda Podlogar AMPOULE EXAMINER tomorrow at 720 am and she said she can't because she is the only person st home to put her children on the bus at 8 am. Please call and advise. MICHELE Chi Danielle, APRN.[facility] 09/18/2024 11:57 AM Signed Patient will need rescheduled for 40 minute appt to review all complaints. If patient would like to be seen tomorrow we can address the lump in her neck and schedule her for follow up appt to address the rest. Mallory Sevilla RN 09/18/2024 1:39 PM Signed Pt called and is notified of providers message and instructions. Pt voices understanding. She states she went to the ER because she was afraid and wanted her neck to get looked at now. Canceled Pts appointment for tomorrow. Mallory Sevilla RN Allergies As of Date: 09/18/2024 Noted Allergy Reaction BENADRYL (DIPHENHYDRAMINE HCL) 05/28/2014 14 - Other: See Comments Comments: Hyper/anxiety CLINDAMYCIN 02/15/2022 2 - Rash Comments: Rash and facial swelling PENICILLINS 06/19/2005 2 - Rash Date Reviewed: 09/10/2024 Reviewed by: Evi Kaufman APRN.MANAGER PROVIDER RELATIONS - Fully Assessed Reason for Visit: Lab Orders [1688] Patient Update [1234] Prescriptions as of 09/18/2024 - fluticasone (FLONASE) 50 mcg/actuation nasal spray Use 1-2 sprays in each nostril once daily. - benzonatate (TESSALON PERLE) 100 mg capsule Take 1-2 capsules by mouth three times a day as needed. - omeprazole (PRILOSEC) 20 mg capsule Take 1 capsule by mouth once daily for 14 days. - buprenorphine ER (SUBLOCADE) 100 mg/0.5 mL injection Inject 100 mg subcutaneously one time only. 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*07/15/2014 02/25/2015 Rubella non-immune status, antepartum [O09.899,*07/16/2014 02/25/2015 Anemia complicating [O99.019] 12/31/2014 05/29/2016 Uterine size-date discrepancy [O26.849] 02/05/2015 02/25/2015 Anxiety [F41.9] 04/09/2015 with uncertain dates, antepartum [Z34*10/06/2016 09/13/2017 Tobacco use during , antepartum [O99.3*10/06/2016 09/13/2017 complicated by subutex maintenance, a*10/06/2016 History of depression [Z86.59] 10/06/2016 09/13/2017 Family history of herpes genitalis [Z83.1] 10/06/2016 09/13/2017 Supervision of high risk , antepartum *10/06/2016 09/13/2017 UTI in , antepartum [O23.40] 08/30/2017 History of depression [Z87.59, Z86.5*08/30/2017 Tobacco use [Z72.0] 08/30/2017 Nausea/vomiting in [O21.9] 08/30/2017 Patient requested diagnostic testing [Z01.89] 08/30/2017 Herpes simplex infection of genitourinary syste*09/13/2017 History of violence [Z87.898] 09/19/2017 Positive urine drug screen [R82.5] 09/21/2017 Ydosi-qkv-iiwok fetus, second trimester [O36.59*01/21/2018 Poor social situation [Z60.9] 01/22/2018 Antepartum anemia [O99.019] 01/22/2018 Anemia during [O99.019] 03/08/2018 ALEXANDRE (iron deficiency anemia) [D50.9] 03/08/2018 Iron malabsorption [K90.9] 03/08/2018 Breech presentation with problem [O32*03/26/2018 04/10/2018 ADHD [F90.9] 03/01/2022 Hx of drug abuse (HCC) [F19.11] 03/01/2022 Chronic active hepatitis (HCC) [K73.2] 03/01/2022 Seizure (HCC) [R56.9] 03/01/2022 Bipolar 1 disorder (HCC) [F31.9] 03/01/2022 Encounter Status:Closed by MALLORY SEVILLA on 09/18/24 Normal [facility] Cervical or vagninal specime n microscopic examination by cytology stain (reported asOrdered By: Shelby Meléndez on 09-17-2024 Cytology report Cyto stain Doc (Cvx/Vag) Comment . [facility] Comment on above: The Pap smear is a s creening test designed to aid in thedetection of premalignant and malignant conditions of theuterine cervix. It is not a diagnostic procedure andshould not be used as the sole means of detecting cervicalcancer. Both false-positive and false-negative reports dooccur. Laboratory - CytologyOrdered By: Shelby Meléndez on 09-17-2024 Finisher Map And Chart Cyto stain Nom (Cvx/Vag) [ID] Comment . [facility] Comment on above: Treasure Moore Cytol ogist (ASCP) Laboratory - Miscellaneous t estsOrdered By: Shelby Meléndez on 09-17-2024 Service comment (Unsp spec) [Interp] . . [facility] No Panel InformationOrdered By: Shelby Meléndez on 09-17-2024 Pap Smear Specimen Adequacy Comment . [facility] Comment on above: Satisfactory for theo luation. No endocervical component is identified. 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: No Is patient in pain?: No Allergies clindamycin Allergy (Verified 09/17/24 14:10) Hives diphenhydramine HCl (From Benadryl) Allergy (Verified 09/17/24 14:10) Hives Penicillins Allergy (Verified 09/17/24 14:10) Hives Medications ???Medication ???Instructions ???Recorded ???Confirmed ???Type lansoprazole 30 mg capsule,delayed 30 mg PO BID #60 caps 01/21/25 0 09/17/24 Rx release lubiprostone 24 mcg capsule 24 mcg PO BID constipation #180 09/17/24 Rx (Amitiza) caps ursodiol 300 mg capsule 300 mg PO BID bile acid #60 caps 0 07/03/24 09/17/24 Rx famotidine 40 mg tablet 40 mg PO QHS #30 tabs 08/05/24 Rx ondansetron 8 mg disintegrating 8 mg PO Q12H PRN nausea and 09/17/24 Rx tablet vomiting #30 tabs Is last menstrual period known: Yes Last Menstrual Period: 09/04/24 Post menopausal: No Patient : No : No Control Method: tubal PFSH Medical History Nausea vomiting Wears contact lenses Marijuana use Easy bruising Migraine headache Syncope Seizures History of ulceration Gastric reflux Smoker Hepatitis C test positive H/O emotional problems Alcohol abuse Depression affecting Positive urine drug screen Anemia Herpes Tobacco abuse complicated by subutex maintenance, antepartum History of drug abuse Surgical History History of esophagogastroduodenosco py (EGD) History of cholecystectomy History of Family History (Updated 09/17/24 @ 14:19 by Sharita Coe) Other Alcoholism Anxiety Arthritis Cancer Cervical cancer Depression Diabetes Endometriosis Mental disorder Ovarian cancer Psychiatric care Seizures Thyroid disorder Social History household members: family housing: house number of children: 2 Smoking Status: Current every day smoker tobacco type: cigarettes alcohol intake: former substance use type: former substance user Date of last use: 05/2020 what type of physical activity do you participate in: none do you feel safe at home: Yes History 4 Elective abortions Hx Para 2 Spontaneous abortions 1 Hx # Term Pregnancies Ectopic pregnancies Hx # Pregnancies Multiple births # of living children 2 Past Pregnancies Del. Date Name GA/Weeks Outcome Route Bth Weight Gen Labor Lgth Anesthesia Del Locatn Provider JUAN 02/16/15 [place] 38 live - full term 6lbs 6.5oz Male epidural [facility] Do 04/16/18 Paysne[place] 39 live - full term 7lbs Female spinal [facility] Torres Perdomo Delivery Date: 04/16/18 Last Updated by: Lorie Lau Breech presentation, scheduled c/s HPI Encounter for routine gynecological examination Details: REJI LORENZO is a 28 year old who presents for annual exam; she reports she is currently seeing a GI doctor for all kinds of issues; (does not disclose what these are).she reports she has occasional left side pelvic pain with what feels like a knot/lump. This has overall improved. Endometriosis concerns. Previously had heavy periods. They are no longer heavy; Menses are not super painful. Her concern is more so with family history of endometriosis. Last PAP: 2020; normal. History of abnormal PAP: no. Last mammogram: age 40 History of abnormal mammogram: n/a Colon cancer screening: age 45 Other preventative health care screenings: Celi Murray; PCP. Female Reproductive History Last Menstrual Period: 09/04/24 Cycle Length: 21-35 Bleeding Duration: 5 Questions: metorrhagia: No, sexually active: Yes (tubes removed. ), dyspareunia: No and PCB: No ROS Const Constitutional: Denies chills, fatigue, fever(s), headache(s) or weight loss Eyes Eyes: Denies change in vision ENT ENT: Denies dizziness Resp Resp: Denies cough GI GI: Denies abdominal pain, constipation or nausea : Denies difficulty voiding, dysuria, hematuria, nipple discharge, pelvic pain, prolapse symptoms, urinary incontinence, vaginal discharge, vaginal dryness, vaginal odor or vaginal pruritus Skin Skin/Breast: Denies alopecia, rash, breast mass, macho (more content not included)... [facility] Gastro[facility]ology Visit Repor ton 07-03-2024 Gastroenterology Visit Report [facility] [address] [place] [address] OFFICE VISIT Date of Service: 07/03/24 MR#: [id number] Acct: [id number] Name: REJI LORENZO Rep #: [id number] : 1995 Provider: ELICEO mckeon Age/Sex: 28/F [place] [facility] [place] Status: Signed Intake Vital Signs 04/21/24 15:53 06/26/24 09:12 07/03/24 09:21 Height 5 ft 2 in 5 ft 2 in 5 ft 2 in Weight: 126 lb 4 oz BMI 23.1 BP 106/64 Respiration 20 H Pulse 56 L Pulse Oximetry (%) 92 Oxygen Delivery Method room air Intake Visit Reasons: Test Result Chief Complaint: N/V/abd pain [employer] Required: No Accompanied by: Son Is patient in pain?: Yes Allergies clindamycin Allergy (Verified 07/03/24 09:20) Hives diphenhydramine HCl (From Benadryl) Allergy (Verified 07/03/24 09:20) Hives Penicillins Allergy (Verified 07/03/24 09:20) Hives Medications ???Medication ???Instructions ???Recorded ???Confirmed ???Type lansoprazole 30 mg capsule,delayed 30 mg PO BID #60 caps 05/27/24 0 07/03/24 Rx release famotidine 40 mg tablet 40 mg PO QHS #30 tabs 05/28/24 Rx colestipol 1 gram tablet 1 g PO TID bile gastritis #90 tabs 07/01/24 07/03/24 Rx ondansetron 8 mg disintegrating 8 mg PO Q12H PRN nausea and 07/03/24 Rx tablet vomiting #30 tabs PFSH Medical History Wears contact lenses Marijuana use Easy bruising Migraine headache Syncope Seizures History of ulceration Gastric reflux Smoker Hepatitis C test positive H/O emotional problems Alcohol abuse Depression affecting Positive urine drug screen Anemia Herpes Tobacco abuse complicated by subutex maintenance, antepartum History of drug abuse Surgical History History of esophagogastroduodenosco py (EGD) History of cholecystectomy History of Family History Other Alcoholism Anxiety Arthritis Cancer Cervical cancer Depression Diabetes Mental disorder Ovarian cancer Psychiatric care Seizures Thyroid disorder Social History household members: family housing: house number of children: 2 Smoking Status: Current every day smoker tobacco type: cigarettes alcohol intake: former substance use type: former substance user Date of last use: 05/2020 what type of physical activity do you participate in: none do you feel safe at home: Yes Female Reproductive History Menstrual Ab spontaneous: 1 HPI HPI Chief Complaint: N/V/abd pain Details: REJI LORENZO, is a 28 F who presents to the office today for OV 04/23/2024 28y/o female presents for initial consultation with complaints of chronic epigastric pain and emesis. She has episodes of nausea and emesis at HS and every morning worse over the past three months with discontinuing Suboxone. She has been managing symptoms with ondansetron, nexium and famotidine. Her PMH is significant for opioid abuse, two years sober. Symptoms were present prior to discontinuing Suboxone and have continued to worsen. In addition to epigastric love she is also experiencing RUQ pain which never resolved with CCX in 2021. She is taking IBU 400mg TID for management of chronic headaches.She reports a loss of appetite but notes symptoms do not worsen with PO intake. We have discussed importance of discontinuing non-steroidal medications. I have started her on Lansoprazole every morning and pepcid at HS. She will schedule ABD US and EGD. DDX includes PUD, SOD, bile acid gastritis. I have also started her on Carafate and educated on timing with other medications. Lastly, she complains of intermittent rectal bleeding and she will schedule colonoscopy with hemorrhoid banding. She will trial Anusol in the interim. We will obtain recent labs from PCP. Patient Instructions: - Avoid use of non-steroidal medications - Start Lansoprazole every morning and take Famotidine at HS - Start Carafate - avoid taking within 2h of other medications - Discontinue Esomeprazole - Anusol for treatment of hemorrhoids - F/U in office after completion of ABD US, EGD and colonoscopy EGD 06/26/2024 - mild gastritis - negative for H. pylori - Normal esophagus. - Bilious gastric fluid. Biopsied. - Erythematous duodenopathy. Biopsied. COLON 06/26/2024 - random biopsies negative - Preparation of the colon was fair. - The entire examined colon is normal. Biopsied. - The examined portion of the ileum was normal. Biopsied. ABD US 04/28/2024 hepatomegaly, diffuse atrophy of the pancreas, CBD 3mm Lansoprazole BID and Famotidine at HS. She disc (more content not included)... [facility] Colonoscopy Reporton 025 Colonoscopy Report [facility] Medical Records Department [address] [place] [address] Colonoscopy Report MR#: [id number] Acct: [id number] Name: REJI LORENZO Rep #: [id number] : 1995 28 From: Arik Martinez DO PCP: Dr. Nando Murray MD Status:REG [facility] [place] Patient Name: Reji Lorenzo Procedure Date: 06/26/2024 10:30 AM Date of : 1995 Age: 28 Procedure: Colonoscopy Indications: Epigastric abdominal pain, Generalized abdominal pain, Abdominal pain in the left lower quadrant Providers: Arik Martinez DO Referring MD: Nando Murray Medicines: Monitored Anesthesia Care Patient Profile: This is a 28 year old female. Refer to note in patient chart for documentation of history and physical. Patient has symptoms of chronic abdominal cramping, chronic abdominal distention and acute epigastric abdominal pain. Last Colonoscopy: none. The patient's first colonoscopy is today. Complications: No immediate complications. Procedure: Pre-Anesthesia Assessment: - Prior to the procedure, a History and Physical was performed, and patient medications and allergies were reviewed. The patient is competent. The risks and benefits of the procedure and the sedation options and risks were discussed with the patient. All questions were answered and informed consent was obtained. Patient identification and proposed procedure were verified by the physician in the pre-procedure area. Mental Status Examination: alert and oriented. Airway Examination: normal oropharyngeal airway and neck mobility. Respiratory Examination: clear to auscultation. CV Examination: normal. Prophylactic Antibiotics: The patient does not require prophylactic antibiotics. Prior Anticoagulants: The patient has taken no anticoagulant or antiplatelet agents except for NSAID medication. ASA Grade Assessment: II - A patient with mild systemic disease. After reviewing the risks and benefits, the patient was deemed in satisfactory condition to undergo the procedure. The anesthesia plan was to use monitored anesthesia care (MAC). Immediately prior to administration of medications, the patient was re-assessed for adequacy to receive sedatives. The heart rate, respiratory rate, oxygen saturations, blood pressure, adequacy of pulmonary ventilation, and response to care were monitored throughout the procedure. The physical status of the patient was re-assessed after the procedure. After I obtained informed consent, the scope was passed under direct vision. Throughout the procedure, the patient's blood pressure, pulse, and oxygen saturations were monitored continuously. The Colonoscope was introduced through the anus and advanced to the cecum, identified by appendiceal orifice and ileocecal valve. The colonoscopy was performed with ease. The patient tolerated the procedure well. The quality of the bowel preparation was fair. Scope In: 10:32:11 AM Scope Withdrawal Time 0 hours 6 minutes 24 seconds Scope Out: 10:45:27 AM Total Procedure Duration Time 0 hours 13 minutes 16 seconds Findings: The perianal and digital rectal examinations were normal. The colon (entire examined portion) appeared normal. Biopsies for histology were taken with a cold forceps from the left colon and right transverse colon for evaluation of microscopic colitis. Verification of patient identification for the specimen was done. The terminal ileum appeared normal. Biopsies were taken with a cold forceps for histology. Impression: - Preparation of the colon was fair. - The entire examined colon is normal. Biopsied. - The examined portion of the ileum was normal. Biopsied. Recommendation: - Discharge patient to home (ambulatory). - Repeat colonoscopy is recommended. The colonoscopy date will be determined after pathology results from today's exam become available for review. - Continue present medications. Procedure Code(s): --- Professional --- 39363, Colonoscopy, flexible; with biopsy, single or multiple CPT copyright 2021 [employer]. All rights reserved. The codes documented in this report are preliminary and upon haulage engine operator review may be revised to meet current compliance requirements. Arik Martinez DO 06/26/2024 11:01:04 AM This report has been signed electronically. Number of Addenda: 0 Note Initiated On: 06/26/2024 10:30 AM 06/26/24 1101 Date Arik Paige Signature: Date (if indicated) CC: Dr. Nando Murray MD; Arik Martinez DO Date Dictated: 06/26/24 1030 Date Transcribed: Kettle Coordinator: RF Signed [facility] EGD Reporton 06-26-2024 EGD Report [facility] Medical Records Department [address] [place] [address] EGD Report MR#: [id number] Acct: [id number] Name: REJI LORENZO Rep #: [id number] : 1995 28 From: Arik Martinez DO PCP: Dr. Nando Murray MD Status:[facility] Patient Name: Reji Lorenzo Procedure Date: 06/26/2024 10:18 AM Date of : 1995 Age: 28 Procedure: Upper GI endoscopy Indications: Epigastric abdominal pain Providers: Arik Martinez DO Referring MD: Nando Murray Medicines: Monitored Anesthesia Care Patient Profile: This is a 28 year old female. Refer to note in patient chart for documentation of history and physical. Patient has symptoms of chronic abdominal cramping, chronic abdominal distention and acute epigastric abdominal pain. Complications: No immediate complications. Procedure: Pre-Anesthesia Assessment: - Prior to the procedure, a History and Physical was performed, and patient medications and allergies were reviewed. The patient is competent. The risks and benefits of the procedure and the sedation options and risks were discussed with the patient. All questions were answered and informed consent was obtained. Patient identification and proposed procedure were verified by the physician in the pre-procedure area. Mental Status Examination: alert and oriented. Airway Examination: normal oropharyngeal airway and neck mobility. Respiratory Examination: clear to auscultation. CV Examination: normal. Prophylactic Antibiotics: The patient does not require prophylactic antibiotics. Prior Anticoagulants: The patient has taken no anticoagulant or antiplatelet agents except for NSAID medication. ASA Grade Assessment: II - A patient with mild systemic disease. After reviewing the risks and benefits, the patient was deemed in satisfactory condition to undergo the procedure. The anesthesia plan was to use monitored anesthesia care (MAC). Immediately prior to administration of medications, the patient was re-assessed for adequacy to receive sedatives. The heart rate, respiratory rate, oxygen saturations, blood pressure, adequacy of pulmonary ventilation, and response to care were monitored throughout the procedure. The physical status of the patient was re-assessed after the procedure. After obtaining informed consent, the endoscope was passed under direct vision. Throughout the procedure, the patient's blood pressure, pulse, and oxygen saturations were monitored continuously. The Colonoscope was introduced through the mouth, and advanced to the second part of duodenum. The upper GI endoscopy was accomplished without difficulty. The patient tolerated the procedure well. Scope In: 10:25:50 AM Scope Out: 10:30:17 AM Total Procedure Duration Time 0 hours 4 minutes 27 seconds Findings: The examined esophagus was normal. Bilious fluid was found in the gastric body. Biopsies were taken with a cold forceps for Helicobacter pylori testing. Verification of patient identification for the specimen was done. Estimated blood loss was minimal. Mildly erythematous mucosa without active bleeding and with no stigmata of bleeding was found in the duodenal bulb. Biopsies were taken with a cold forceps for histology. Verification of patient identification for the specimen was done. Estimated blood loss was minimal. Impression: - Normal esophagus. - Bilious gastric fluid. Biopsied. - Erythematous duodenopathy. Biopsied. Recommendation: - Discharge patient to home. - Resume previous diet. - Continue present medications. - Await pathology results. -Suspect gastroparesis Procedure Code(s): --- Professional --- 16603, Esophagogastroduodenosco py, flexible, transoral; with biopsy, single or multiple CPT copyright 2021 [employer]. All rights reserved. The codes documented in this report are preliminary and upon haulage engine operator review may be revised to meet current compliance requirements. Arik Martinez DO 06/26/2024 10:56:28 AM This report has been signed electronically. Number of Addenda: 0 Note Initiated On: 06/26/2024 10:18 AM 06/26/24 1056 Date Arik Martinez DO Cosigner Signature: Date (if indicated) CC: Dr. Nando Murray MD; Arik Martinez DO Date Dictated: 06/26/24 1018 Date Transcribed: Kettle Coordinator: ALEC Signed [facility] H Pylori (initial)on H Pylori (initial) ---- Patient Age/Sex Location Account Attending Physician REJI LORENZO EN [id number] Arik Martinez DO Specimen: [id number] Received: 06/26/24-1315 Status: ANETA Ortega Num: [id number] Spec Type: IMMUNO Subm Dr: Arik Martinez DO PHYSICIAN INSTITUTION [place] [id number] SPECIMEN INFORMATION: Tissue Source: A- Gastric antrum biopsy Clinical Info: Nausea / vomiting, epigastric pain, rectal bleeding Specimen Number: [id number] CPT code: 01796 METHODOLOGY: Deparaffinized sections of prefer/formalin-fixed tissue or PAP/DQ stained slides are incubated with monoclonal/polyclonal antibodies/oligonucleoti de probes. Localization is made via biotin free immunoperoxidase method. Appropriate controls are performed and reacted as expected. Results on target cell population are indicated in the following table: RESULTS: ANTIBODY / CLONE RESULT Block A H Pylori (polyclonal) negative These tests were developed and their performance characteristics determined by [facility]. They may not have been cleared or approved by the U.S. Food and Drug Administration. The FDA has determined that such clearance or approval is not necessary. The above immunohistochemical/dual GIA markers are ordered and reviewed by the Pathologist. INTERPRETATION: A. Gastric antrum, biopsy: Negative for Helicobacter pylori organisms. 06/27/2024 Signed (signature on file) Dr. Mikie Tovar MD 06/27/24 1144 [facility] Comment on above: Performed By: #### P H.PYLORI #### [facility] [address] [place], [address] MR/POSTOP.Karie 06-26-2024 MR/POSTOP.[facility] Medical Records Department [address] [place] [address] Anesthesia Postop Eval I 06/26/24 1100 MR#: [id number] Acct: [id number] Name: REJI LORENZO Rep #: [id number] : 1995 28 From: Theron Rivera PCP: Dr. Nando Murray MD Status:REG SDC Y Race: C Location: [place] [address] Anesthesia: Postop Eval I Current Vital Signs Temperature: 97.7 F Pulse Rate: 81 Blood Pressure: 108/68 Respiratory Rate: 16 Pulse Ox: 100 Oxygen Delivery Method: Room Air Assessment Airway patent: Yes Spontaneous unlabored respirations: Yes Mental status: Awake and Calm nausea: No Vomiting: No Anesthesia Complication: No Fluid Hydration Crystalloid volume administer (ml): 60 Total IV fluid infused: 60 Progress Note Anesthesia document: Postop Eval 1 completed: Yes 06/26/24 1101 Date Theron Mtzigner Signature: Date CC: Signed [facility] MR/[id number] 06-26-2024 /[facility] Medical Records Department [address] [place] [id number] Anesthesia Postop Eval II 06/26/24 1250 MR#: [id number] Acct: [id number] Name: REJI LORENZO Rep #: [id number] : 1995 28 From: Roverto Walker MD PCP: Dr. Nando Murray MD Status:[facility] Y Race: C Location: EN Anesthesia Postop Eval I Sum Postop Eval Completion status Anesthesia document: Postop Eval 1 completed: Yes Anesthesia Postop Eval I Summary Anesthesia Postop Eval I Summary: Anesthesia Postop Eval I: Assessment Summary Airway patent Yes 06/26/24 11:01 [email or web address] Spontaneous unlabored Yes 06/26/24 11:01 [email or web address] respirations Mental status Awake,Calm 06/26/24 11:01 [email or web address] nausea No 06/26/24 11:01 [email or web address] Vomiting No 06/26/24 11:01 [email or web address] Anesthesia Postop Eval I: Fluid Summary Crystalloid volume administer 60 06/26/24 11:01 [email or web address] (ml) Colloids volume administered ( ml) Blood Product volume administered (ml) Total IV fluid infused 60 06/26/24 11:01 [email or web address] Anesthesia Postop Eval I: Summary Notes Anesthesia Complication No 06/26/24 11:01 [email or web address] Anesthesia Complication Comment: Post-operative progress note Anesthesia: Postop Eval II Evaluation Mental status: Awake and Calm Pain Level: 0 nausea: No Vomiting: No Complications Anesthesia Complication: No 06/26/24 1250 Date Roverto Vallecillo Signature: Date CC: Signed [facility] Surgery Specimen Level Beverly 06-26-2024 Surgery Specimen Level IV Patient Age/Sex Location Account Attending Physician REJI LORENZO/ EN [id number] Arik Martinez DO Specimen: [id number] Received: 06/26/24 Status: ANETA Ortega Num: [id number] Spec Type: COLON BX Subm Dr: Arik Martinez DO HEADBEAR OPERATION: Colonoscopy, EGD with biopsy PRE-OP DIAGNOSIS: Nausea / vomiting, epigastric pain, rectal bleeding TISSUE SUBMITTED: A- Gastric antrum biopsy, B- Terminal ileum biopsy, C- Random colonic biopsy MICROSCOPIC DIAGNOSIS A. Gastric antrum, biopsy: Mild gastritis. See microscopic description and comment. B. Terminal ileum, biopsy: Fragments of small intestinal mucosa, no pathologic diagnosis. C. Colon, random biopsy: Fragments of colonic mucosa, no pathologic diagnosis. SJ.mr 06/27/2024 COMMENT A. The results of immunohistochemistry for Helicobacter pylori will be reported separately ([id number]). MICROSCOPIC DESCRIPTION Slides are reviewed. A. The specimen shows fragments of gastric mucosa with chronic inflammatory cell infiltrates in the lamina propria consisting of lymphocytes and plasma cells, consistent with mild chronic gastritis. GROSS DESCRIPTION A. Received in fixative is one container labeled with the patient's name and designated Gastric antrum biopsy. The specimen consists of multiple irregular fragments of light richmond soft tissue that in aggregate measure 0.9 x 0.5 x 0.1 cm. The specimen is totally submitted in one cassette. B. Received in fixative is one container labeled with the patient's name and designated Terminal ileum biopsy. The specimen consists of one irregular fragment of light richmond soft tissue that measures 0.5 x 0.4 x 0.1 cm. The specimen is totally submitted in one cassette. C. Received in fixative is one container labeled with the patient's name and designated Random colonic biopsy. The specimen consists of multiple irregular fragments of light richmond soft tissue that in aggregate measure 1.1 x 0.6 x 0.2 cm. The specimen is totally submitted in one cassette. MS/mr 06/26/2024 TC:3 CPT:10521m9 Patient Age/Sex Location Account Attending Physician REJI LORENZO EN [id number] Arik Martinez DO Signed (signature on file) Dr. Mikie Tovar MD 06/27/24 1027 [facility] Comment on above: Performed By: #### P RICHA #### [facility] [place], [address] Emergency Department Summary on 06-07-2024 Emergency Department Summary [facility] Medical Records Department [address] [place] [address] Emergency Department Summary 06/07/24 MR#: [id number] Acct: [id number] Name: REJI LORENZO Rep #: [id number] : 1995 28 From: Nehemiah Benjamin AMPOULE EXAMINER-C PCP: Dr. Nando Murray MD Status:DEP ER Location: ED Patient was seen and examined with nurse practitioner Nehemiah All components of the history and physical confirmed and agreed. History of present illness and physical exam: Patient is a 28-year-old female past medical history of bipolar, tobacco use, drug abuse,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 Time-out was performed, verifying patient, site, procedure, position. Local anesthetic was injected above the umbilicus. Incision was made, dissection carried down to the fascia and the peritoneum entered under direct visualization. Macho trocar was inserted through a stay suture. Pneumoperitoneum to 15 mmHg was insufflated. Three 5 mm ports were placed in the midline. Visual inspection revealed normal-appearing liver and normal visualized intraabdominal structures. The gallbladder dissected upward. However, there were few adhesions toward the bottom half of the gallbladder. These adhesions were taken down bluntly. Dissection was carried out in Calot of triangle. This dissection was continued, a critical view of the neck of the gallbladder from the cystic duct with no signs of aberrant ductal structures seen. A clip was placed in gallbladder cystic duct junction and a partial ductotomy made. Percutaneous cholangiocath was inserted with a clip. Intraoperative cholangiogram performed from the other. It should be noted, there was cyst. There were small stones in the cystic duct. These were milked out such that no further stones were noted. Following this, the cholangiocath was inserted with a clip. Intraoperative cholangiogram showed filling of the cystic duct, filling of the common bile duct, filling of the secondary biliary radicals and emptying without signs of obstruction. There was leakage of contrast back out the cystic duct, but I was comfortable that I saw filling and no obstruction. Following this, the clip and catheter removed from the cystic duct. Cystic duct was divided. Dissection was continued, cystic duct was identified doubly clipped proximally, singly clipped distally and divided. The gallbladder was dissected from gallbladder fossa using electrocautery, placed in endobag and removed through the port site. 0 PDS [id number] sutures placed on the port site defect. The gallbladder fossa was checked for hemostasis. With good hemostasis, the area was irrigated and aspirated clear. 5 ports were removed under direct visualization with no signs of bleeding. Pneumoperitoneum was released. The umbilical trocar was removed. The umbilical fascia was secured. The skin was closed with 4-0 Monocryl subcuticular sutures. Steri-Strips dressing applied. Patient tolerated the procedure well and was brought to recovery room in stable condition. Patience Hall was my presser first. She assisted in visualization, retraction, and subcuticular closure. There were no surgeons or qualified residents were available. Gerry Cantu M.D. RG:[id number] /[id number] [facility] SURGICAL PATHOLOGYon 022 CASE REPORT [facility] Comment on above: Order Comment: Speci men Type: TISSUE SPECIMEN Ordering Facility: [facility] Address: [address] [place] [address] Result Comment: Surg ical Pathology Report Case: [id number] Authorizing Provider: Gerry Cantu MD Collected: 03/06/2022 09:47 AM Ordering Location: [facility] Surgery Received: 03/06/2022 10:44 AM Pathologist: Jessi Paris MD Specimen: GALLBLADDER Performed By: #### S #### [facility] CLIA [id number] [address] [place] [address] CLINICAL HISTORY Normal [facility] Comment on above: Order Comment: Speci men Type: TISSUE SPECIMEN Ordering Facility: [facility] Address: [address] [place] [address] Result Comment: Pre- op diagnosis: RUQ pain [R10.11] Calculus of gallbladder without cholecystitis without obstruction [K80.20] Performed By: #### S #### [facility] CLIA [id number] [address] [place] [address] FINAL DIAGNOSIS [facility] Comment on above: Order Comment: Speci men Type: TISSUE SPECIMEN Ordering Facility: [facility] Address: [address] [place] [address] Result Comment: A. G allbladder, cholecystectomy: - Chronic cholecystitis with cholelithiasis. XZ/ZAKIA 03/07/2022 Performed By: #### S #### [facility] CLIA [id number] [address] [place] [address] FINAL PERFORMING LAB Normal [facility] Comment on above: Order Comment: Speci men Type: TISSUE SPECIMEN Ordering Facility: [facility] Address: [address] [place] [address] Result Comment: Diag nostic interpretation performed at [address], [place] [address] IA# [id number] Stabber: Mohsen Marie M.D. Performed By: #### S #### [facility] IA [id number] [address] [place] [address] STATES OF SUKHJINDER GROSS DESCRIPTION A. GALLBLADDER Normal [facility] Comment on above: Order Comment: Speci men Type: TISSUE SPECIMEN Ordering Facility: [facility] Address: [address] [place] [address] Result Comment: Rece ived in formalin labeled gallbladder is an intact gallbladder measuring 9 x 2.5 x 2.5 cm. The serosal surface is purple-richmond smooth and glistening. Upon opening, the mucosal surface is green and velvety. The average wall thickness is 0.2 cm. The cystic duct is not impacted. However, multiple green granular calculi are identified within the specimen ranging in size from 0.2 to 0.3 cm. The calculi are admixed with green bile. No possible lymph nodes are identified near the cystic duct. Ball Fringe Machine Operator sections including the cystic duct and wall are submitted in A1. Gross examination performed at [facility], [address] [place] [address] OLS March 06, 2022 3:14 PM Performed By: #### S #### [facility] IA [id number] [address] [place] [address] OF SUKHJINDER UA DIP, URINE (POC)on 2021 BILIRUBIN UA (POCT) Negative Negative [facility] CLARITY UA (POCT) Clear [facility] COLOR UA (POCT) Yellow [facility] GLUCOSE UA (POCT) Negative Negative mg/dL [facility] HEMOGLOBIN/BLOOD UA (POCT) Negative Negative [facility] KETONE UA (POCT) Negative Negative mg/dL [facility] LEUKOCYTES UA (POCT) Negative Negative [facility] NITRITE UA (POCT) Negative Negative [facility] PH UA (POCT) 7.0 4.5 - 8.0 [facility] Protein Ql (U) Negative Negative mg/dL [facility] SPECIFIC GRAVITY UA (POCT) 1.025 1.005 - 1.030 [facility] UROBILINOGEN UA (POCT) 0.2 E.U./dL Normal E.U./dL [facility] Absolute lymphocyte counton 01-30-2022 Lymphocytes Auto (Unsp spec) [#/Vol] 2.08 10*3/uL 0.83-4.51 [facility] Work Phone: Basophil percentageon 2021 Basophils/100 WBC (Bld) 0.6 % 0-1 [facility] Work Phone: Bilirubin [Mass/Vol] 0.30 mg/dL 0.20-1.00 [facility] Work Phone: Comment on above: For patients on eltr ombopag therapy, use of Dimension Lagrange TBIL is not recommended. Chloride [Moles/Vol] 104 mmol/L 98-107 [facility] Work Phone: Cholesterol [Mass/Vol] 151 mg/dL <200 [facility] Work Phone: Comment on above: <200 mg/dL Desirable 200-240 mg/dL Borderline >240 mg/dL High Risk Eosinophils/100 WBC (Bld) 6.5 % 0-5 [facility] Work Phone: Glucose [Mass/Vol] 105 mg/dL 74-106 [facility] Work Phone: Comment on above: Fasting Glucose resu lt from 100 to 125 mg/dL suggests IMPAIRED HOMEOSTASIS per A.D.A. criteria. Neutrophils (Bld) [#/Vol] 2.3 10*3/uL 2.0-7.7 [facility] Work Phone: Neutrophils/100 WBC (Bld) 45.8 % 47-70 [facility] Work Phone: Potassium [Moles/Vol] 4.0 mmol/L 3.5-5.1 [facility] Work Phone: Protein [Mass/Vol] 7.7 g/dL 6.4-8.2 [facility] Work Phone: Sodium [Moles/Vol] 138 mmol/L 136-145 [facility] Work Phone: Triglyceride [Mass/Vol] 121 mg/dL <199 [facility] Work Phone: Comment on above: The drugs N-Acetylcy steine and Metamizole may falsely depress this assay.Serum Triglycerides Reference Interval Normal <150 mg/dL Borderline high 150 - 199 mg/dL High 200 - 499 mg/dL Very High > or = 500 mg/dL WBC (Bld) [#/Vol] 4.9 10*3/uL 4.4-11.0 [facility] Work Phone: Blood erythrocytes count (nu mber/volume)on 01-30-2022 RBC (Bld) [#/Vol] 3.88 10*6/uL 4.2-5.4 [facility] Work Phone: Blood hemoglobin measurement (mass/volume)on 01-30-2022 Hemoglobin (Bld) [Mass/Vol] 11.1 g/dL 12.0-15.0 [facility] Work Phone: Blood lymphocytes/100 leukoc yteson 01-30-2022 Lymphocytes/100 WBC (Bld) 42.4 % 19-41 [facility] Work Phone: Blood monocytes/100 leukocyt eson 01-30-2022 Monocytes/100 WBC (Bld) 4.7 % 0-10 [facility] Work Phone: Blood platelet mean volumeon 01-30-2022 Platelet mean volume (Bld) [Entitic vol] 9.2 fL 6.2-12.0 [facility] Work Phone: Determination of erythrocyte mean corpuscular volume (MCV)on 01-30-2022 MCV (RBC) [Entitic vol] 85.1 fL 81-99 [facility] Work Phone: Hematocrit Auto (Bld) [Volum e fraction]on 01-30-2022 Hematocrit (Bld) [Volume fraction] 33.0 % 37-47 [facility] Work Phone: Laboratory - Chemistry and C hemistry - challengeon 01-30-2022 ALP [Catalytic activity/Vol] 57 U/L 45-117 [facility] Work Phone: ALT [Catalytic activity/Vol] 51 U/L 13-56 [facility] Work Phone: CK [Catalytic activity/Vol] 181 U/L 26-192 [facility] Work Phone: CO2 [Moles/Vol] 26.0 mmol/L 21.0-32.0 [facility] Work Phone: [phone] Free T4 [Mass/Vol] 1.14 ng/dL 0.76-1.46 [facility] Work Phone: Globulin (S) [Mass/Vol] 3.9 g/dL 2.2-4.2 [facility] Work Phone: T4 [Mass/Vol] 11.0 ug/dL 4.8-13.9 [facility] Work Phone: Urea nitrogen/Creatinine [Mass ratio] 14.3 mg/mg 10-20 [facility] Work Phone: Laboratory - Drug toxicology on 01-30-2022 Amphetamines Ql (U) Negative <1000 ng/mL [facility] Work Phone: Benzodiazepines Ql (U) Negative < 200 ng/mL [facility] Work Phone: Cannabinoids Screen Ql (U) Negative < 50 ng/mL [facility] Work Phone: Cocaine Ql (U) Negative < 300 ng/mL [facility] Work Phone: Opiates Ql (U) Negative < 300 ng/mL [facility] Work Phone: Laboratory - Hematology and Cell countson 01-30-2022 Erythrocyte distribution width (RBC) [Entitic vol] 40.1 fL 35.1-43.9 [facility] Work Phone: Erythrocyte distribution width (RBC) [Ratio] 13.1 % 11.6-14.6 [facility] Work Phone: Immature granulocytes/100 WBC (Bld) 0.000 % 0.0-0.9 [facility] Work Phone: Comment on above: IG% - Immature Granu locytes (promyelocytes, myelocytes and metamyelocytes) > 1% indicates that a LEFT SHIFT is Present. MCH (RBC) [Entitic mass] 28.6 pg 27.0-32.0 [facility] Work Phone: Nucleated RBC/100 WBC (Bld) [Ratio] 0 % 0-5 [facility] Work Phone: MCHC Auto (RBC) [Mass/Vol]on 01-30-2022 MCHC (RBC) [Mass/Vol] 33.6 g/dL 32-36 [facility] Work Phone: No Panel Informationon 01-30 MDMA (Ecstasy) Screen Negative < 500 ng/mL [facility] Work Phone: Total Triiodothyronine 1.45 ng/mL 0.6-1.81 [facility] Work Phone: Urine Barbiturates Screen Negative < 200 ng/mL [facility] Work Phone: Urine Drug Screen Comment [facility] Work Phone: Comment on above: CONFIRMATORY TESTING FOR ALL POSITIVE URINE DRUG SCREENRESULTS WILL ONLY BE SENT OUT UPON PHYSICIAN ORDER. VISTA Urine Drug Screen methods provide only preliminaryanalytical test results. A more specific alternate chemicalmethod must be used in order to obtain a confirmedanalytical result. Gas chromatography/mass spectrometery(GC/MS) is the preferred confirmatory method. Clinicalconsideration and professional judgement should be appliedto any drug of abuse test result, particularly whenpreliminary positive results are used. URINE TCA TESTING MUST BE ORDERED SEPARATELY. USE TESTMNEMONIC: [facility] Urine Methadone Screen Negative < 300 ng/mL [facility] Work Phone: Miscellaneous Test See comment [facility] Work Phone: Comment on above: TEST RESULT LIMITSBa rbiturates Screen, Urine Negative ng/mL [id number] Note: This assay provides a preliminary unconfirmed analytical test result that may be suitable for clinical management of patients in certain situations. Drug-test results should be interpreted in the context of clinical information. Patient metabolic variables, specific drug chemistry, and specimencharacteristics can affect test outcome. Technical consultation is available if a test result is inconsistent with an expected outcome. ([email or web address] or call toll-free [phone]) TESTING PERFORMED AT [facility]. ORIGINAL REPORT ON FILE IN LAB CONTAINS ADDITIONAL TEST SITE INFORMATION. Estimated GFR (MDRD) Amer 130 mL/min >60 [facility] Work Phone: Comment on above: GFR Calc Estimated GFR (MDRD) Non-Af Amer 107 mL/min >60 [facility] Work Phone: Comment on above: Non- GFR Calc Free Triiodothyronine (T3) pg/dL 3.2 pg/mL 2.18-3.98 [facility] Work Phone: Thyroid Stimulating Hormone (TSH) 0.55 uIU/mL 0.358-3.74 [facility] Work Phone: Platelets bldon 01-30-2022 Platelets (Bld) [#/Vol] 202 10*3/uL 150-450 [facility] Work Phone: Serum or plasma albumin homero urement (mass/volume)on 01-30-2022 Albumin [Mass/Vol] 3.8 g/dL 3.2-5.0 [facility] Work Phone: Serum or plasma albumin/glob ulin mass ratioon 01-30-2022 Albumin/Globulin [Mass ratio] 1.0 {ratio} 0.9-2.4 [facility] Work Phone: Serum or plasma calcium homero urement (mass/volume)on 01-30-2022 Calcium [Mass/Vol] 9.1 mg/dL 8.5-10.1 [facility] Work Phone: Serum or plasma cholesterol in HDL measurement (mass/volume)on 01-30-2022 Cholesterol in HDL [Mass/Vol] 44 mg/dL >40 [facility] Work Phone: Comment on above: The drugs N-Acetylcy steine and Metamizole may falsely depress this assay. Reference Range HDL <40 mg/dL Low HDL Cholesterol HDL >or= 60 mg/dL High HDL Cholesterol Serum or plasma cholesterol in VLDL measurement (mass/volume)on 01-30-2022 Cholesterol in VLDL [Mass/Vol] 24 mg/dL 5-40 [facility] Work Phone: Serum or plasma creatinine m easurement (mass/volume)on 01-30-2022 Creatinine [Mass/Vol] 0.70 mg/dL 0.55-1.02 [facility] Work Phone: Comment on above: The validity of the calculated GFR & GFRAA in patients over 70 years has not been determined. Clinical correlation is essential. Serum or plasma low density lipoprotein (LDL) cholesterol measurement (mass/volume)on 01-30-2022 Cholesterol in LDL [Mass/Vol] 83 mg/dL 0-130 [facility] Work Phone: Serum or plasma urea nitroge n measurement (mass/volume)on 01-30-2022 Urea nitrogen [Mass/Vol] 10 mg/dL 7-18 [facility] Work Phone: Thin prep Papanicolaou smear with manual screeningon 01-30-2022 Thin prep Papanicolaou smear with manual screening 32 U/L 15-37 [facility] Work Phone: Thin prep Papanicolaou smear with manual screening 8 5-15 [facility] Work Phone: Urine phencyclidine (PCP) de tectionon 01-30-2022 Phencyclidine Ql (U) Negative < 25 ng/mL [facility] Work Phone: Absolute lymphocyte counton 10-31-2021 Lymphocytes Auto (Unsp spec) [#/Vol] 2.89 10*3/uL 0.83-4.51 [facility] Work Phone: Basophil percentageon 2021 Basophil percentage 5-10 SEEN /hpf 0-5 [facility] Work Phone: Basophils/100 WBC (Bld) 0.7 % 0-1 [facility] Work Phone: [phone] Bilirubin [Mass/Vol] 0.30 mg/dL 0.20-1.00 [facility] Work Phone: Comment on above: For patients on eltr ombopag therapy, use of Dimension Lagrange TBIL is not recommended. Chloride [Moles/Vol] 107 mmol/L 98-107 [facility] Work Phone: [phone] Eosinophils/100 WBC (Bld) 6.6 % 0-5 [facility] Work Phone: Glucose [Mass/Vol] 91 mg/dL 74-106 [facility] [place] Work Phone: Neutrophils (Bld) [#/Vol] 4.4 10*3/uL 2.0-7.7 [facility] Work Phone: Neutrophils/100 WBC (Bld) 52.5 % 47-70 [facility] Work Phone: Potassium [Moles/Vol] 3.9 mmol/L 3.5-5.1 [facility] Work Phone: Comment on above: Moderate Hemolysis, Result may be falsely increased. Protein [Mass/Vol] 8.2 g/dL 6.4-8.2 [facility] [place] Work Phone: Sodium [Moles/Vol] 138 mmol/L 136-145 [facility] [place] Work Phone: WBC (Bld) [#/Vol] 8.3 10*3/uL 4.4-11.0 [facility] [place] Work Phone: Bilirubin Test strip Ql (U)o n 10-31-2021 Bilirubin Ql (U) Negative Negative [facility] Work Phone: Blood erythrocytes count (nu mber/volume)on 10-31-2021 RBC (Bld) [#/Vol] 4.09 10*6/uL 4.2-5.4 [facility] Work Phone: Blood hemoglobin measurement (mass/volume)on 10-31-2021 Hemoglobin (Bld) [Mass/Vol] 11.4 g/dL 12.0-15.0 [facility] Work Phone: Blood lymphocytes/100 leukoc yteson 10-31-2021 Lymphocytes/100 WBC (Bld) 34.7 % 19-41 [facility] Work Phone: Blood monocytes/100 leukocyt eson 10-31-2021 Monocytes/100 WBC (Bld) 5.3 % 0-10 [facility] Work Phone: Blood platelet mean volumeon 10-31-2021 Platelet mean volume (Bld) [Entitic vol] 9.5 fL 6.2-12.0 [facility] Work Phone: Determination of erythrocyte mean corpuscular volume (MCV)on 10-31-2021 MCV (RBC) [Entitic vol] 86.1 fL 81-99 [facility] Work Phone: Hematocrit Auto (Bld) [Volum e fraction]on 10-31-2021 Hematocrit (Bld) [Volume fraction] 35.2 % 37-47 [facility] Work Phone: Ketones Test strip Ql (U)on 10-31-2021 Ketones Ql (U) Negative Negative [facility] Work Phone: Laboratory - Chemistry and C hemistry - challengeon 10-31-2021 ALP [Catalytic activity/Vol] 92 U/L 45-117 [facility] Work Phone: ALT [Catalytic activity/Vol] 115 U/L 13-56 [facility] Work Phone: CO2 [Moles/Vol] 23.0 mmol/L 21.0-32.0 [facility] Work Phone: Globulin (S) [Mass/Vol] 4.4 g/dL 2.2-4.2 [facility] Work Phone: Lipase [Catalytic activity/Vol] 223 U/L 73-393 [facility] Work Phone: Urea nitrogen/Creatinine [Mass ratio] 19.6 mg/mg 10-20 [facility] Work Phone: Laboratory - Hematology and Cell countson 10-31-2021 Erythrocyte distribution width (RBC) [Entitic vol] 44.8 fL 35.1-43.9 [facility] Work Phone: Erythrocyte distribution width (RBC) [Ratio] 14.2 % 11.6-14.6 [facility] Work Phone: Immature granulocytes/100 WBC (Bld) 0.200 % 0.0-0.9 [facility] Work Phone: Comment on above: IG% - Immature Granu locytes (promyelocytes, myelocytes and metamyelocytes) > 1% indicates that a LEFT SHIFT is Present. MCH (RBC) [Entitic mass] 27.9 pg 27.0-32.0 [facility] Work Phone: Nucleated RBC/100 WBC (Bld) [Ratio] 0 % 0-5 [facility] Work Phone: MCHC Auto (RBC) [Mass/Vol]on 10-31-2021 MCHC (RBC) [Mass/Vol] 32.4 g/dL 32-36 [facility] Work Phone: Mucus LM Ql (Urine sed)on Mucus Ql (Urine sed) 0 SEEN /hpf [facility] Work Phone: Nitrite Test strip Ql (U)on 10-31-2021 Nitrite Ql (U) Negative Negative [facility] Work Phone: No Panel Informationon 10-31 Estimated Creatinine Clearance Calc 73.29 ml/min [facility] Work Phone: Estimated GFR (MDRD) Amer 95 mL/min >60 [facility] Work Phone: Comment on above: GFR Calc Estimated GFR (MDRD) Non-Af Amer 79 mL/min >60 [facility] Work Phone: Comment on above: Non- GFR Calc Platelets bldon 10-31-2021 Platelets (Bld) [#/Vol] 305 10*3/uL 150-450 [facility] Work Phone: Protein Test strip Ql (U)on 10-31-2021 Protein Ql (U) Negative Negative [facility] Work Phone: Serum or plasma albumin homero urement (mass/volume)on 10-31-2021 Albumin [Mass/Vol] 3.8 g/dL 3.2-5.0 [facility] [place] Work Phone: Serum or plasma albumin/glob ulin mass ratioon 10-31-2021 Albumin/Globulin [Mass ratio] 0.9 {ratio} 0.9-2.4 [facility] Work Phone: Serum or plasma calcium homero urement (mass/volume)on 10-31-2021 Calcium [Mass/Vol] 9.2 mg/dL 8.5-10.1 [facility] [place] Work Phone: Serum or plasma creatinine m easurement (mass/volume)on 10-31-2021 Creatinine [Mass/Vol] 0.92 mg/dL 0.55-1.02 [facility] Work Phone: Comment on above: The validity of the calculated GFR & GFRAA in patients over 70 years has not been determined. Clinical correlation is essential. Serum or plasma urea nitroge n measurement (mass/volume)on 10-31-2021 Urea nitrogen [Mass/Vol] 18 mg/dL 7-18 [facility] Work Phone: Squamous epithelial cells de tection in urine sediment by light microscopyon 10-31-2021 Epithelial cells.squamous LM Ql (Urine sed) 0-5 SEEN /hpf 5-10 [facility] Work Phone: Thin prep Papanicolaou smear with manual screeningon 10-31-2021 Thin prep Papanicolaou smear with manual screening 64 U/L 15-37 [facility] Work Phone: Comment on above: Moderate Hemolysis, Result may be falsely increased. Thin prep Papanicolaou smear with manual screening 8 5-15 [facility] Work Phone: Urine blood detectionon 10-06 RBC Ql (U) 50 /ul Negative [facility] Work Phone: RBC Ql (U) 0-5 SEEN /hpf 0-5 [facility] Work Phone: Urine clarityon 10-31-2021 Clarity (U) Clear Clear [facility] Work Phone: Urine color determinationon 10-31-2021 Color (U) Yellow Yellow [facility] Work Phone: Urine glucose detectionon Glucose Ql (U) Normal mg/dl Normal [facility] Work Phone: Urine leukocyte esterase det ection by dipstickon 10-31-2021 Leukocyte esterase Test strip Ql (U) 100 /ul Negative [facility] Work Phone: Urine pHon 10-31-2021 pH (U) 6.0 [pH] 5.0 - 8.0 [facility] Work Phone: Urine sediment bacteria coun t by microscopy (number/high power field)on 10-31-2021 Bacteria LM.HPF (Urine sed) [#/Area] 1 /[HPF] None Seen [facility] Work Phone: Urine specific gravity measu rementon 10-31-2021 Specific gravity (U) [Rel density] 1.025 1.002-1.030 [facility] Work Phone: Urobilinogen Auto test strip Ql (U)on 10-31-2021 Urobilinogen Ql (U) Normal mg/dl Normal [facility] Work Phone: Basophil percentageon 2021 WBC (Bld) [#/Vol] 11.5 10*3/uL 4.4-11.0 [facility] Work Phone: Blood erythrocytes count (nu mber/volume)on 09-22-2021 RBC (Bld) [#/Vol] 3.42 10*6/uL 4.2-5.4 [facility] Work Phone: Blood hemoglobin measurement (mass/volume)on 09-22-2021 Hemoglobin (Bld) [Mass/Vol] 9.6 g/dL 12.0-15.0 [facility] Work Phone: Blood platelet mean volumeon 09-22-2021 Platelet mean volume (Bld) [Entitic vol] 10.2 fL 6.2-12.0 [facility] Work Phone: Determination of erythrocyte mean corpuscular volume (MCV)on 09-22-2021 MCV (RBC) [Entitic vol] 87.1 fL 81-99 [facility] Work Phone: Hematocrit Auto (Bld) [Volum e fraction]on 09-22-2021 Hematocrit (Bld) [Volume fraction] 29.8 % 37-47 [facility] Work Phone: Laboratory - Hematology and Cell countson 09-22-2021 Erythrocyte distribution width (RBC) [Entitic vol] 43.7 fL 35.1-43.9 [facility] Work Phone: Erythrocyte distribution width (RBC) [Ratio] 13.8 % 11.6-14.6 [facility] Work Phone: MCH (RBC) [Entitic mass] 28.1 pg 27.0-32.0 [facility] Work Phone: MCHC Auto (RBC) [Mass/Vol]on 09-22-2021 MCHC (RBC) [Mass/Vol] 32.2 g/dL 32-36 [facility] Work Phone: Platelets bldon 09-22-2021 Platelets (Bld) [#/Vol] 286 10*3/uL 150-450 [facility] Work Phone: Absolute lymphocyte counton 09-21-2021 Lymphocytes Auto (Unsp spec) [#/Vol] 2.15 10*3/uL 0.83-4.51 [facility] Work Phone: Basophil percentageon 2021 Basophils/100 WBC (Bld) 0.6 % 0-1 [facility] Work Phone: Eosinophils/100 WBC (Bld) 1.7 % 0-5 [facility] Work Phone: Neutrophils (Bld) [#/Vol] 5.8 10*3/uL 2.0-7.7 [facility] Work Phone: Neutrophils/100 WBC (Bld) 66.3 % 47-70 [facility] Work Phone: Blood lymphocytes/100 leukoc yteson 09-21-2021 Lymphocytes/100 WBC (Bld) 24.5 % 19-41 [facility] Work Phone: Blood monocytes/100 leukocyt eson 09-21-2021 Monocytes/100 WBC (Bld) 6.2 % 0-10 [facility] Work Phone: Laboratory - Drug toxicology on 09-21-2021 Benzodiazepines Ql (U) Negative < 200 ng/mL [facility] Work Phone: Cannabinoids Screen Ql (U) Negative < 50 ng/mL [facility] Work Phone: Cocaine Ql (U) Negative < 300 ng/mL [facility] Work Phone: Opiates Ql (U) Negative < 300 ng/mL [facility] Work Phone: Laboratory - Hematology and Cell countson 09-21-2021 Immature granulocytes/100 WBC (Bld) 0.700 % 0.0-0.9 [facility] Work Phone: Comment on above: IG% - Immature Granu locytes (promyelocytes, myelocytes and metamyelocytes) > 1% indicates that a LEFT SHIFT is Present. Nucleated RBC/100 WBC (Bld) [Ratio] 0 % 0-5 [facility] Work Phone: No Panel Informationon 09-21 MDMA (Ecstasy) Screen Negative < 500 ng/mL [facility] Work Phone: Urine Barbiturates Screen Negative < 200 ng/mL [facility] Work Phone: Urine Drug Screen Comment [facility] Work Phone: Comment on above: CONFIRMATORY TESTING FOR ALL POSITIVE URINE DRUG SCREENRESULTS WILL ONLY BE SENT OUT UPON PHYSICIAN ORDER. VISTA Urine Drug Screen methods provide only preliminaryanalytical test results. A more specific alternate chemicalmethod must be used in order to obtain a confirmedanalytical result. Gas chromatography/mass spectrometery(GC/MS) is the preferred confirmatory method. Clinicalconsideration and professional judgement should be appliedto any drug of abuse test result, particularly whenpreliminary positive results are used. URINE TCA TESTING MUST BE ORDERED SEPARATELY. USE TESTMNEMONIC: [facility] Urine Methadone Screen Negative < 300 ng/mL [facility] Work Phone: Urine amphetamine measuremen t (moles/volume)on 09-21-2021 Amphetamine (U) [Moles/Vol] Negative <1000 ng/mL [facility] Work Phone: Urine phencyclidine (PCP) de tectionon 09-21-2021 Phencyclidine Ql (U) Negative < 25 ng/mL [facility] Work Phone: Laboratory - Chemistry and C hemistry - challengeon 09-20-2021 Glucose Ql (U) Negative [facility] Work Phone: Laboratory - Urinalysison Protein Ql (U) Negative [facility] Work Phone: Chlamydia trachomatis rRNA d etection by probe and target amplification methodon 09-15-2021 C. trachomatis rRNA ITA+probe Ql (Unsp spec) Negative Negative [facility] Work Phone: Laboratory - Chemistry and C hemistry - challengeon 09-15-2021 Glucose Ql (U) Negative [facility] Work Phone: Laboratory - Drug toxicology on 09-15-2021 Amphetamines Ql (U) Positive <1000 ng/mL [facility] Work Phone: Benzodiazepines Ql (U) Negative < 200 ng/mL [facility] Work Phone: Cannabinoids Screen Ql (U) Negative < 50 ng/mL [facility] Work Phone: Cocaine Ql (U) Negative < 300 ng/mL [facility] Work Phone: Opiates Ql (U) Negative < 300 ng/mL [facility] Work Phone: Laboratory - Microbiology an d Antimicrobial susceptibilityon 09-15-2021 N. gonorrhoeae DNA ITA+probe Ql (Unsp spec) Negative Negative [facility] Work Phone: Comment on above: Performed at: =[address] [id number] Director: Ely Bermeo MD, Phone: [phone] Laboratory - Urinalysison Protein Ql (U) Negative [facility] Work Phone: No Panel Informationon 09-15 Group B Streptococcus Culture Group B Beta Streptococcus is not isolated. [facility] Work Phone: MDMA (Ecstasy) Screen Negative < 500 ng/mL [facility] Work Phone: Urine Barbiturates Screen Negative < 200 ng/mL [facility] Work Phone: Urine Drug Screen Comment [facility] Work Phone: Comment on above: CONFIRMATORY TESTING FOR ALL POSITIVE URINE DRUG SCREENRESULTS WILL ONLY BE SENT OUT UPON PHYSICIAN ORDER. VISTA Urine Drug Screen methods provide only preliminaryanalytical test results. A more specific alternate chemicalmethod must be used in order to obtain a confirmedanalytical result. Gas chromatography/mass spectrometery(GC/MS) is the preferred confirmatory method. Clinicalconsideration and professional judgement should be appliedto any drug of abuse test result, particularly whenpreliminary positive results are used. URINE TCA TESTING MUST BE ORDERED SEPARATELY. USE TESTMNEMONIC: [facility] Urine Methadone Screen Negative < 300 ng/mL [facility] Work Phone: Urine phencyclidine (PCP) de tectionon 09-15-2021 Phencyclidine Ql (U) Negative < 25 ng/mL [facility] Work Phone: Laboratory - Chemistry and C hemistry - challengeon 08-18-2021 Glucose Ql (U) Negative [facility] Work Phone: Laboratory - Urinalysison Protein Ql (U) Negative [facility] Work Phone: Laboratory - Chemistry and C hemistry - challengeon 07-19-2021 Glucose Ql (U) Negative [facility] Work Phone: Laboratory - Urinalysison Protein Ql (U) Negative [facility] Work Phone: Laboratory - Chemistry and C hemistry - challengeon 06-29-2021 Glucose Ql (U) Negative [facility] Work Phone: Laboratory - Drug toxicology on 06-29-2021 Amphetamines Ql (U) Negative [facility] Work Phone: Benzodiazepines Ql (U) Negative [facility] Work Phone: Cannabinoids Screen Ql (U) Negative [facility] Work Phone: Cocaine Ql (U) Negative [facility] Work Phone: Opiates Ql (U) Negative [facility] Work Phone: Laboratory - Urinalysison Protein Ql (U) Negative [facility] Work Phone: No Panel Informationon 06-29 Urine Barbiturates Screen Negative [facility] Work Phone: Urine Drug Screen Comment [facility] Work Phone: Comment on above: CONFIRMATORY TESTING FOR ALL POSITIVE URINE DRUG SCREENRESULTS WILL ONLY BE SENT OUT UPON PHYSICIAN ORDER. VISTA Urine Drug Screen methods provide only preliminaryanalytical test results. A more specific alternate chemicalmethod must be used in order to obtain a confirmedanalytical result. Gas chromatography/mass spectrometery(GC/MS) is the preferred confirmatory method. Clinicalconsideration and professional judgement should be appliedto any drug of abuse test result, particularly whenpreliminary positive results are used. URINE TCA TESTING MUST BE ORDERED SEPARATELY. USE TESTMNEMONIC: [facility] Urine Methadone Screen Negative [facility] Work Phone: Urine Methamphetamine-MDMA Screen Negative [facility] Work Phone: Urine phencyclidine (PCP) de tectionon 06-29-2021 Phencyclidine Ql (U) Negative [facility] Work Phone: Laboratory - Chemistry and C hemistry - challengeon 06-02-2021 Glucose Ql (U) Negative [facility] Work Phone: Laboratory - Urinalysison Protein Ql (U) Negative [facility] Work Phone: Progress Noteon 04-27-2021 Cigar Wrapper Authentication Interface Message Text Maternal Medicine Consult Date of Service: 04/27/2021 Referring Provider: Merline Sotomayor Primary Care Provider: Ying Willingham MD Reason for Consult: Dr. Merline Sotomayor requests that Reji be evaluated due to HCV. Reji is a 25 y.o. at 18w2d gestation who presents for evaluation of HCV. HPI Reji denies nausea, vomiting, visual disturbance, headaches, epigastric pain, abdominal pain, cramping, regular contractions, leakage of fluid, and/or vaginal bleeding. OB History Para Term AB Living 4 2 2 0 1 2 SAB IAB Ectopic Multiple Live Births 1 0 0 0 2 # Outcome Date GA Lbr Jesus/2nd Weight Sex Delivery Anes PTL Lv 4 Current 3 Term 04/16/18 39w0d 3.175 kg F CS-LTranv Spinal [place] Comments: Breech Complications: Breech delivery Name: Joelle 2 2016 12w0d SAB 1 Term 02/16/15 38w0d 2.906 kg M VAGINAL EPI N [place] Name: Fahad Past Medical History: Diagnosis Date Anemia affecting Anxiety Bipolar 1 disorder COVID-19 affecting , antepartum Depression Gastrointestinal complaints, nonspecific Acid Reflux and stomach ulcers Hepatitis C History of alcohol use Hx of substance abuse Obesity BMI = 31.6 UTI (urinary tract infection) Past Surgical History: Procedure Laterality Date SECTION Allergies Allergen Reactions Penicillins Hives and Rash Social History Socioeconomic History Marital status: Single Tobacco Use Smoking status: Current Every Day Smoker Smokeless tobacco: Current User Tobacco comment: vapes a little bit and smokes a couple cig Substance and Sexual Activity Alcohol use: Not Currently Comment: recovering addict Drug use: Not Currently 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 Infections Live with someone with or exposed to TB No History of STI's None Rash or viral illness since last menstruation No 2nd STI GBS 3rd STI Hx of Chicken Pox No Other infections Partner has hx of genital herpes No Genetics Age is > than 35y as of estimated date No Thalassemia No Neural Tube Defect No Congenital Heart Defect No Down Syndrome No Joshua-Sachs No Ebenezer Disease No Sickle Cell Disease or Trait No Hemophilia, Thrombophilia No Muscular Dystrophy No Cystic Fibrosis No Ruddy's Chorea No Intellectual Disability/Autism Yes FOB' father - asbergers Metabolic Disorder No Recurrent Loss, or a Stillbirth No Inherited Genetic or Chromosomal Disorder No Illicit; Rec.drugs; Alcohol since last menses No Family History Problem Relation Age of Onset No known problems Mother No known problems Father No known problems Sister No known problems Brother No known problems Maternal Grandmother No known problems Maternal Grandfather No known problems Paternal Grandmother No known problems Paternal Grandfather Outpatient Encounter Medications as of 04/27/2021 Medication Sig Dispense Refill buprenorphine (SUBUTEX) 2 MG SL tablet Take 2 mg by mouth 6 mgm sl daily. omeprazole (PRILOSEC OTC) 20 MG tablet Take by mouth ONCE CHEMO. 3 famotidine (PEPCID) 20 MG tablet Take by mouth daily. (Patient not taking: Reported on 04/27/2021) 3 famotidine (PEPCID) 20 MG tablet Take by mouth 2 times daily omeprazole (PRILOSEC) 20 MG capsule Take 1 Cap by mouth daily. 30 Cap 0 No facility-administered encounter medications on file as of 04/27/2021. Review of Systems Constitutional: Negative. HENT: Negative. Eyes: Negative. Respiratory: Negative. Cardiovascular: Negative. Gastrointestinal: Negative. Genitourinary: Negative. Musculoskeletal: Negative. Skin: Negative. Neurological: Negative. Endo/Heme/Allergies: Negative. Psychiatric/Behavioral: Negative. Laboratory Test Results: No visits with results within 1 Year(s) from this visit. Latest known visit with results is: Admission on 10/12/2011, Discharged on 10/12/2011 Component Date Value Ref Range Status Sodium 10/12/2011 138 133 - 145 mEq/L Final Potassium 10/12/2011 3.7 3.3 - 5.1 mEq/L Final Chloride 10/12/2011 105 96 - 108 mEq/L Final Carbon Dioxide 10/12/2011 24.0 22.0 - 29.0 mEq/L Final BUN 10/12/2011 15 4 - 19 mg/dL Final Glucose 10/12/2011 82 70 - 99 mg/dL Final Total Bilirubin 10/12/2011 0.5 0.0 - 1.0 mg/dl Final AST 10/12/2011 22 0 - 31 U/L Final ALT 10/12/2011 18 0 - 31 U/L Final Alkaline Phosphatase 10/12/2011 77 47 - 119 U/L Final Calcium 10/12/2011 9.6 7.6 - 11.0 mg/dL Final Protein, Total 10/12/2011 8.2 5.9 - 8.4 g/dL Final Albumin 10/12/2011 4.5 3.2 - 4.5 g/dL Final Creatinine 10/12/2011 0.7 0.5 - 1.0 mg/dL Final Lipase 10/12/2011 50 16 - 63 U/L Final Color Ur 10/12/2011 Yellow Final Character 10/12/2011 Hazy Final Specific gravity 10/12/2011 >=1.030* 1.005 - 1.030 Final Leukocyte Esterase Ur 10/12/2011 NEGATIVE Negative leuk/ul Final Nitrites 10/12/2011 NEGATIVE Negative mg/dl Final pH Ur 0 (more content not included)... Normal [facility] Trichomonas vaginalis PCRon 03-01-2021 Trichomonas vaginalis PCR Trichomonas vaginalis PCR --> Status: F T. vaginalis RNA: Not Detected Expected result: Not detected Methodology: Cigar Wrapper-mediated amplification (TMA) For additional information, please refer to [email or web address] (this link is being provided for information/educational purposes only. [place] Expected result: Not detected Methodology: Cigar Wrapper-mediated amplification (TMA) For additional information, please refer to [email or web address] (this link is being provided for information/educational purposes only. Testing performed by [place] [facility] Normal [facility] Comment on above: Performed By: #### T VPCR, CTNGP ####[facility] [place], [place] Hepatitis C RNA Quanton 02-05 Hep C RNA Quant (log) 4.91 {Log_IU} Abnormal <1.[address] [facility] Comment on above: Performed By: #### H BSAG, HEPC, CMP3, RPRBP, HCVQ, HIVRC, HEMOG ####[id number] [place], [place] #### RUBG ####[id number] [place] [address] Hepatitis C RNA Quant 00433 [IU]/mL Abnormal <[address] [facility] Comment on above: Performed By: #### H BSAG, HEPC, CMP3, RPRBP, HCVQ, HIVRC, HEMOG ####[id number] [place], [place] #### RUBG ####[id number] [place] [address] CULTURE URINEon 02-26-2021 CULTURE URINE CULTURE URINE --> Status: F Normal urogenital deana present. Normal [facility] Comment on above: Performed By: #### C /UR #### [facility] [address] Amphetamine Confirmationon 1 AMPHETAMINE (UR) Detected Normal [facility] Comment on above: Performed By: #### F ENTU, BUPR, THC4, DRGA4, AMPCF #### [address] Amphetamine Confirm. Detected Normal [facility] Comment on above: Performed By: #### F ENTU, BUPR, THC4, DRGA4, AMPCF #### [address] EPHED/PSEUDO. (UR) Not detected Normal [facility] Comment on above: Performed By: #### F ENTU, BUPR, THC4, DRGA4, AMPCF #### [address] MDMA (UR) Not detected Normal [facility] Comment on above: Performed By: #### F ENTU, BUPR, THC4, DRGA4, AMPCF #### [address] METHAMPHETAMINE (UR) Detected Normal [facility] Comment on above: Performed By: #### F ENTU, BUPR, THC4, DRGA4, AMPCF #### [address] PHENTERMINE (UR) Not detected Normal [facility] Comment on above: Performed By: #### F ENTU, BUPR, THC4, DRGA4, AMPCF #### [address] Reviewed By Lissette Valdez [facility] Comment on above: Performed By: #### F ENTU, BUPR, THC4, DRGA4, AMPCF #### [address] Comment see below Normal [facility] Comment on above: Result Comment: The following were tested for in the urine specimen submitted: Amphetamine,Ephedrine/Pseudoephedrine,Methamphetamine,MDMA, and Phentermine. Specimen confirmed by Gas Chromatography/Mass Spectrometry. NOTE: These results are for medical treatment only. Analysis performed using non-forensic procedures. . Performed By: #### F ENTU, BUPR, THC4, DRGA4, AMPCF #### [address] [id number] Amphetamine, Urine, Confirma tion, QuantOrdered By: Mildred Chance on 02-25-2021 Amphetamine Urine Confirm Detected [facility] Work Phone: [phone] Amphetamines, urine Detected [place] [facility] Work Phone: [phone] Comment see below [facility] Work Phone: [phone] Comment on above: The following were t ested for in the urine specimen submitted: Amphetamine,Ephedrine/Pseudoephedrine,Methamphetamine,MDMA, and Phentermine. Specimen confirmed by Gas Chromatography/Mass Spectrometry. NOTE: These results are for medical treatment only. Analysis performed using non-forensic procedures. . Ephedrine/Pseudoephed rine, Urine Not detected [facility] Work Phone: [phone] MDMA, Urine Not detected [facility] Work Phone: Methamphetamine, Urine Detected [facility] Work Phone: [phone] Phentermine, Ur Not detected [facility] Work Phone: [phone] REVIEWED BY Lissette Valdez [facility] Work Phone: [phone] Test Performed by [facility], [address] [place] [address] [facility] Work Phone: [phone] [facility] Work Phone: [phone] Buprenorphine Screenon 02-25 Buprenorphine Screen Negative Normal [facility] Comment on above: Result Comment: Bupr enorphine (Suboxone) has been screened for by Immunoassay at 5 ng/mL threshold. POSITIVE results are not confirmed by a more specific alternative method unless requested. If confirmation is needed, request confirmation under separate order. NOTE: These results are for medical treatment only. Analysis performed using non-forensic procedures. Performed By: #### F ENTU, BUPR, THC4, DRGA4, AMPCF #### [address] [address] CBCOrdered By: Mildred Chance on 02-25-2021 Hematocrit (Bld) [Volume fraction] 31.6 % Low 35.0 - 47.0 % [facility] Work Phone: Hemoglobin.gastrointe stinal spec 1 Ql (Stl) 11.1 g/dL Low 11.7 - 16.0 g/dL [facility] Work Phone: ) Interpretation and review of laboratory results Abnormal [facility] Work Phone: MCH (RBC) [Entitic mass] 31.4 pg 26.0 - 34.0 pg [facility] Work Phone: MCHC (RBC) [Mass/Vol] 35.0 % 32.0 - 36.0 % [facility] Work Phone: MCV (RBC) [Entitic vol] 89.8 fL 79.0 - 98.0 fL [facility] Work Phone: Platelet distribution width (Bld) [Ratio] 13.2 % 11.5 - 14.5 % [facility] Work Phone: Platelet mean volume (Bld) [Entitic vol] 7.2 fL Low 7.4 - 10.4 fL [facility] Work Phone: ) Platelets (Bld) [#/Vol] 318 10*3/uL 140 - 440 10*3/uL [facility] Work Phone: RBC (Bld) [#/Vol] 3.52 10*6/uL Low 3.80 - 5.2 0 10*6/uL [facility] Work Phone: WBC (Bld) [#/Vol] 6.2 10*3/uL 3.6 - 10.7 10*3/uL [facility] Work Phone: Test Performed by [facility], [address] [place] [address] [facility] Work Phone: [facility] Work Phone: Comp Metabolic Panelon 02-25 ALP [Catalytic activity/Vol] 50 U/L Normal 38-126 [facility] [employer] [facility] Comment on above: Performed By: #### H BSAG, HEPC, CMP3, RPRBP, HCVQ, HIVRC, HEMOG ####[facility], [place] #### RUBG ####[facility] [place] [address] ALT [Catalytic activity/Vol] 90 U/L High 0-[address] [facility] Comment on above: Result Comment: The ALT test is performed by an updated assay method. Please note that the reference intervals have been changed and are now sex specific. Performed By: #### H BSAG, HEPC, CMP3, RPRBP, HCVQ, HIVRC, HEMOG ####[place] [address], [place] #### RUBG ####[facility] [place] [address] Calcium [Mass/Vol] 9.2 mg/dL Normal 8.4-10.[address] [facility] Comment on above: Performed By: #### H BSAG, HEPC, CMP3, RPRBP, HCVQ, HIVRC, HEMOG ####[place] [address], [place] #### RUBG ####[facility] [place] [address] Glucose [Mass/Vol] 93 mg/dL Normal 70-[address] [facility] Comment on above: Performed By: #### H BSAG, HEPC, CMP3, RPRBP, HCVQ, HIVRC, HEMOG ####[place] [address], [place] #### RUBG ####[facility] [place] [address] Urea nitrogen [Mass/Vol] 7 mg/dL Low 9-[address] [facility] Comment on above: Performed By: #### H BSAG, HEPC, CMP3, RPRBP, HCVQ, HIVRC, HEMOG ####[place] [address], [place] #### RUBG ####[facility] [place] [address] Anion gap [Moles/Vol] 4 mmol/L Normal 3-13 [facility] Comment on above: Performed By: #### H BSAG, HEPC, CMP3, RPRBP, HCVQ, HIVRC, HEMOG ####[place] [address], [place] #### RUBG ####[facility] [place] [address] AST [Catalytic activity/Vol] 67 U/L High 15-[address] [facility] Comment on above: Performed By: #### H BSAG, HEPC, CMP3, RPRBP, HCVQ, HIVRC, HEMOG ####[place] [address] #### RUBG ####[facility] [place] [address] Bilirubin [Mass/Vol] 0.3 mg/dL Normal 0.2-1.3 [facility] Comment on above: Performed By: #### H BSAG, HEPC, CMP3, RPRBP, HCVQ, HIVRC, HEMOG ####[place] [address] #### RUBG ####[facility] [place] [address] CO2 [Moles/Vol] 23 mmol/L Normal 22-[address] [facility] Comment on above: Performed By: #### H BSAG, HEPC, CMP3, RPRBP, HCVQ, HIVRC, HEMOG ####[place] [address] #### RUBG ####[facility] [place] [facility] [address] Creatinine [Mass/Vol] 0.46 mg/dL Low 0.52-1.25 [facility] Comment on above: Performed By: #### H BSAG, HEPC, CMP3, RPRBP, HCVQ, HIVRC, HEMOG ####[place] [address] [facility] #### RUBG ####[facility] [place] [address] eGFR OTHER > 90.0 Normal >[address] [facility] Comment on above: Result Comment: KDIG O guidelines provide the following GFR categories: Stage GFR(ml/min/1.73 m2) Terms G1 >=90 Normal or high G2 60-89 Mildly decreased* G3a 45-59 Mildly to moderately decreased G3b 30-44 Moderately to severely decreased G4 15-29 Severely decreased G5 <15 Kidney failure *Relative to young adult level. In the absence of evidence of kidney damage, neither GFR category G1 nor G2 fulfill the criteria for CKD. The CKD-EPI equation is validated in individuals 18 years of age and older. Currently the best equation for estimating glomerular filtration rate (GFR) from serum creatinine in children is the Bedside Welsh equation. It is less accurate in patients with extremes of muscle mass, restriction of dietary protein, ingestion of creatine, extra-renal metabolism of creatinine, or treatment with medications that affect renal tubular creatinine secretion. Performed By: #### H BSAG, HEPC, CMP3, RPRBP, HCVQ, HIVRC, HEMOG ####[facility] [place], [place] #### RUBG ####[facility] [employer] [id number] [facility] [place] [address] GFR/1.73 sq M.predicted among blacks MDRD (S/P/Bld) [Vol rate/Area] mL/min/{1.73_m2} Normal >[address] [facility] Comment on above: Performed By: #### H BSAG, HEPC, CMP3, RPRBP, HCVQ, HIVRC, HEMOG ####[address] [place], [place] #### RUBG ####[facility] [employer] [address] [facility] [place] [address] Protein [Mass/Vol] 6.9 g/dL Normal 6.3-8.[address] [facility] Comment on above: Performed By: #### H BSAG, HEPC, CMP3, RPRBP, HCVQ, HIVRC, HEMOG ####[address] [place], [place] #### RUBG ####[facility] [employer] [address] [facility] [place] [address] Chloride [Moles/Vol] 107 mmol/L Normal 98-107 [facility] Comment on above: Performed By: #### H BSAG, HEPC, CMP3, RPRBP, HCVQ, HIVRC, HEMOG ####[place] [address] [place] [address]#### RUBG ####[facility] [place] [address] Potassium [Moles/Vol] 3.8 mmol/L Normal 3.5-5.1 [facility] Comment on above: Performed By: #### H BSAG, HEPC, CMP3, RPRBP, HCVQ, HIVRC, HEMOG ####[place] [address] [place] [address]#### RUBG ####[facility] [place] [address] Sodium [Moles/Vol] 134 mmol/L Low 135-[address] [facility] Comment on above: Performed By: #### H BSAG, HEPC, CMP3, RPRBP, HCVQ, HIVRC, HEMOG ####[place] [address] [place] [address]#### RUBG ####[facility] [place] [address] Albumin [Mass/Vol] 3.8 g/dL Normal 3.5-5.[address] [facility] Comment on above: Performed By: #### H BSAG, HEPC, CMP3, RPRBP, HCVQ, HIVRC, HEMOG ####[place] [address] [place] [address]#### RUBG ####[facility] [place] [address] Comprehensive Metabolic Pane lOrdered By: Mildred Chance on 02-25-2021 Albumin [Mass/Vol] 3.8 g/dL 3.5 - 5.0 g/dL [facility] Work Phone: ALP (Bld) [Catalytic activity/Vol] 50 U/L 38 - 126 U/L [facility] Work Phone: ALT [Catalytic activity/Vol] 90 U/L High 0 - 34 U/L [facility] Work Phone: Comment on above: The ALT test is perf ormed by an updated assay method. Please note that the reference intervals have been changed and are now sex specific. Anion gap [Moles/Vol] 4 mmol/L 3 - 13 mmol/L [facility] Work Phone: AST [Catalytic activity/Vol] 67 U/L High 15 - 46 U/L [facility] Work Phone: Bilirubin [Mass/Vol] 0.3 mg/dL 0.2 - 1 .3 mg/dL [facility] Work Phone: Calcium [Mass/Vol] 9.2 mg/dL 8.4 - 10. 4 mg/dL [facility] Work Phone: Chloride [Moles/Vol] 107 mmol/L 98 - 10 7 mmol/L [facility] Work Phone: CO2 [Moles/Vol] 23 mmol/L 22 - 30 mmol/L [facility] Work Phone: Creatinine [Mass/Vol] 0.46 mg/dL Low 0.52 - 1.25 mg/dL [facility] Work Phone: EGFR IF NonAfrican Montenegrin >90.0 >60 mL/min [facility] Work Phone: Comment on above: KDIGO guidelines pro vide the following GFR categories: Stage GFR(ml/min/1.73 m2) Terms G1 >=90 Normal or high G2 60-89 Mildly decreased* G3a 45-59 Mildly to moderately decreased G3b 30-44 Moderately to severely decreased G4 15-29 Severely decreased G5 <15 Kidney failure *Relative to young adult level. In the absence of evidence of kidney damage, neither GFR category G1 nor G2 fulfill the criteria for CKD. The CKD-EPI equation is validated in individuals 18 years of age and older. Currently the best equation for estimating glomerular filtration rate (GFR) from serum creatinine in children is the Bedside Welsh equation. It is less accurate in patients with extremes of muscle mass, restriction of dietary protein, ingestion of creatine, extra-renal metabolism of creatinine, or treatment with medications that affect renal tubular creatinine secretion. Free PSA/Total PSA [Mass fraction] 6.9 g/dL 6.3 - 8.2 g/dL [facility] Work Phone: GFR/1.73 sq M.predicted among blacks MDRD (S/P/Bld) [Vol rate/Area] mL/min/{1.73_m2} >60 mL/min [facility] Work Phone: [phone] Glucose [Mass/Vol] 93 mg/dL 70 - 100 mg/dL [facility] Work Phone: [phone] Interpretation and review of laboratory results Abnormal [facility] Work Phone: [phone] Potassium [Moles/Vol] 3.8 mmol/L 3.5 - 5.1 mmol/L [facility] Work Phone: [phone] Sodium [Moles/Vol] 134 mmol/L Low 135 - 145 mmol/L [facility] Work Phone: [phone] Urea nitrogen (BldV) [Mass/Vol] 7 mg/dL Low 9 - 20 mg/dL [facility] Work Phone: [phone] Test Performed by [facility], [address] [place] [address] [facility] Work Phone: [phone] [facility] Work Phone: [phone] Fentanyl Screen, Urineon Fentanyl Screen, Urn Negative Normal Negative [facility] Comment on above: Result Comment: Fent anyl has been screened for by Immunoassay at a 1 ng/ml threshold. POSITIVE results are not confirmed by a more specific alternative method unless requested. If confirmation is needed, request confirmation under separate order. NOTE: These results are for medical treatment only. Analysis performed using non-forensic procedures. Performed By: #### F ENTU, BUPR, THC4, DRGA4, AMPCF #### [facility] [employer] [address] [place] [phone] HEPATITIS B SURFACE ANTIGENO rdered By: Mildred Chance on 02-25-2021 Hepatitis B Surface Ag Not detected Not Detected NA [facility] Work Phone: HEPATITIS C ANTIBODYOrdered By: Mildred Chance on 02-25-2021 Hepatitis C Ab Detected Abnormal Not Detected NA [facility] Work Phone: [phone] Comment on above: Patients with DETECTED Hepatitis C Ab results should have a new specimen submitted for supplemental testing with a Hepatitis C Quantitative RNA assay (viral load), if clinically indicated. Interpretation and review of laboratory results Abnormal [facility] Work Phone: HIV Rapid 1&2Ordered By: Payam Chance on 02-25-2021 HIV 1/2 Antibody Non-Reactive [facility] Work Phone: HIV-1 P24 Ag Non-Reactive [facility] Work Phone: Test Performed by [facility], [facility] [place], [place] [id number] [place], [place] [address]A Work Phone: [facility] Work Phone: HIV Rapid Card Teston 2020 HIV-1 p24 Ag Non-Reactive Normal [facility] Comment on above: Performed By: #### H BSAG, HEPC, CMP3, RPRBP, HCVQ, HIVRC, HEMOG ####[address] #### RUBG ####[facility] [place] [address] HIV-1,2 Ab Non-Reactive Normal [facility] Comment on above: Performed By: #### H BSAG, HEPC, CMP3, RPRBP, HCVQ, HIVRC, HEMOG ####[address] [address]#### RUBG ####[facility] [place] [address] Hemogramon 02-25-2021 Erythrocyte distribution width (RBC) [Ratio] 13.2 % Normal 11.5-14.[address] [facility] Comment on above: Performed By: #### H BSAG, HEPC, CMP3, RPRBP, HCVQ, HIVRC, HEMOG ####[place] [address] [place] [address]#### RUBG ####[facility] [place] [address] Hematocrit (Bld) [Volume fraction] 31.6 % Low 35.0-47.[address] [facility] Comment on above: Performed By: #### H BSAG, HEPC, CMP3, RPRBP, HCVQ, HIVRC, HEMOG ####[place] [address] [place], [place] #### RUBG ####[facility] [place] [address] Hemoglobin (Bld) [Mass/Vol] 11.1 g/dL Low 11.7-16.[address] [facility] Comment on above: Performed By: #### H BSAG, HEPC, CMP3, RPRBP, HCVQ, HIVRC, HEMOG ####[address] #### RUBG ####[facility] [facility] [address] [place], [place] MCH (RBC) [Entitic mass] 31.4 pg Normal 26.0-34.[address] [facility] Comment on above: Performed By: #### H BSAG, HEPC, CMP3, RPRBP, HCVQ, HIVRC, HEMOG ####[address] #### RUBG ####[facility] [facility] [address] [place], [place] MCHC 35.0 % Normal 32.0-36.[address] [facility] Comment on above: Performed By: #### H BSAG, HEPC, CMP3, RPRBP, HCVQ, HIVRC, HEMOG ####[address] #### RUBG ####[facility] [facility] [address] [place], [place] MCV (RBC) [Entitic vol] 89.8 fL Normal 79.0-98.[address] [facility] Comment on above: Performed By: #### H BSAG, HEPC, CMP3, RPRBP, HCVQ, HIVRC, HEMOG ####[address] #### RUBG ####[facility] [facility] [place] [address] Platelet mean volume (Bld) [Entitic vol] 7.2 fL Low 7.4-10.[address] [facility] Comment on above: Performed By: #### H BSAG, HEPC, CMP3, RPRBP, HCVQ, HIVRC, HEMOG ####[place] [address] [place], [place] #### RUBG ####[facility] [place] [address] Platelets (Bld) [#/Vol] 318 10*3/uL Normal 140-[address] [facility] Comment on above: Performed By: #### H BSAG, HEPC, CMP3, RPRBP, HCVQ, HIVRC, HEMOG ####[address] #### RUBG ####[address] [place] [address] RBC (Bld) [#/Vol] 3.52 10*6/uL Low 3.80-5.[address] [facility] Comment on above: Performed By: #### H BSAG, HEPC, CMP3, RPRBP, HCVQ, HIVRC, HEMOG ####[address] #### RUBG ####[address] [place] [address] WBC (Bld) [#/Vol] 6.2 10*3/uL Normal 3.6-10.[address] [facility] Comment on above: Performed By: #### H BSAG, HEPC, CMP3, RPRBP, HCVQ, HIVRC, HEMOG ####[address] #### RUBG ####[facility] [facility] [place] [place] [address] Hep B Surface Agon 1 Hep B Surface Ag Not detected Normal Not Detected [facility] Comment on above: Performed By: #### H BSAG, HEPC, CMP3, RPRBP, HCVQ, HIVRC, HEMOG ####[address] [place] [address]#### RUBG ####[address] [place] [address] Hep C Antibodyon 02-25-2021 Hep C Antibody Detected Abnormal Not Detected [facility] Comment on above: Result Comment: Patients with DETECTED Hepatitis C Ab results should have a new specimen submitted for supplemental testing with a Hepatitis C Quantitative RNA assay (viral load), if clinically indicated. Performed By: #### H BSAG, HEPC, CMP3, RPRBP, HCVQ, HIVRC, HEMOG ####[address] [place] [address]#### RUBG ####[facility] [place] [address] [facility] US 1st Trimest er TA Yuni Mustapha 02-25-2021 [facility] US 1st Trimester TA Yuni Si Patient Name: REJI LORENZO Maternal Medicine ACCESSION EXAM DATE/TIME PROCEDURE ORDERING PROVIDER [id number] 02/25/2021 09:02 EDT [facility] US 1st [id number] -[place], MILDRED Trimester TA Yuni Si Reason For Exam ([facility] US 1st Trimester TA Yuni Si) Dating/viability Report OBSTETRICS REPORT (Signed Final 02/25/2021 06:01 pm) Patient Info ID #: [id number] : [birth year] (25 yrs) Name: REJI LORENZO Visit Date: 02/25/2021 09:01 am Performed By Attending: Chris Phillip Location: [facility], [facility] Performed By: Joseph Avilez Visit Type: Inpatient - WITS Service(s) Provided US < 14 weeks [address] Indications Dating/ Viability Z34.91 Vital Signs Weight (lb): 180 Height: 5'2 BMI: 32.92 Evaluation Num Of Fetuses: 1 Preg. Location: Intrauterine Gest. Sac: Seen Yolk Sac: Visualized Pole: Visualized Heart Rate(bpm): 182 Cardiac Activity: Observed Lie: Too early to determine Placenta: Too early to evaluate Amniotic Fluid GENNY FV: Too early to evaluate Biometry -------- CRL: 27.5 mm G. Age: 9w 4d CHIN: 09/26/21 Gestational Age Maternal Medicine Report LMP: 9w 4d Date: 12/20/20 CHIN: 09/26/21 Best: 9w 4d Det. By: LMP (12/20/20) CHIN: 09/26/21 Impression - Single living fetus with a gestational age of 9w 4d with an CHIN of 09/26/2021 - Clinically supplied CHIN is confirmed by crown-rump length. - Normal early anatomy as noted above. - Normal uterus and adnexa as noted above. Recommendations: 1. Recommend NT screening between 11-13 weeks. 2. Aneuploidy screening as ordered per primary OB. MFM/genetics consult is available if desired. 3. Anatomic survey at 18 weeks. 4. Additional follow-up as clinically indicated. Ultrasound is not diagnostic of chromosomal aneuploidy and does not detect all subtle defects. Normal ultrasound findings do not guarantee normal outcomes. Chris Phillip MD, PhD, FACOG Electronically Signed Final Report 02/25/2021 06:01 pm Final Dictated: 02/25/2021 9:01 am Dictating Physician: CHRIS PHILLIP Signed Date and Time: 02/25/2021 6:02 pm Signed by: CHRIS PHILLIP Ultrasound ACCESSION EXAM DATE/TIME PROCEDURE ORDERING PROVIDER [id number] 02/25/2021 09:02 EDT [facility] US 1st [id number] -[place] CHANCEAE Trimester TA Yuni Si Reason For Exam ([facility] US 1st Trimester TA Yuni Si) Dating/viability Report OBSTETRICS REPORT (Signed Final 02/25/2021 06:01 pm) Patient Info ID #: [id number] : [birth year] (25 yrs) Name: REJI LORENZO Visit Date: 02/25/2021 09:01 am Performed By Attending: Chris Phillip Location: [facility] Performed By: Joseph Avilez Visit Type: Inpatient - [facility] Service(s) Provided Ultrasound Report US < 14 weeks [address] Indications Dating/ Viability Z34.91 Vital Signs Weight (lb): 180 Height: 5'2 BMI: 32.92 Evaluation Num Of Fetuses: 1 Preg. Location: Intrauterine Gest. Sac: Seen Yolk Sac: Visualized Pole: Visualized Heart Rate(bpm): 182 Cardiac Activity: Observed Lie: Too early to determine Placenta: Too early to evaluate Amniotic Fluid GENNY FV: Too early to evaluate Biometry -------- CRL: 27.5 mm G. Age: 9w 4d CHIN: 09/26/21 Gestational Age LMP: 9w 4d Date: 12/20/20 CHIN: 09/26/21 Best: 9w 4d Det. By: LMP (12/20/20) CHIN: 09/26/21 Impression - Single living fetus with a gestational age of 9w 4d with an CHIN of 09/26/2021 - Clinically supplied CHIN is confirmed by crown-rump length. - Normal early anatomy as noted above. - Normal uterus and adnexa as noted above. Recommendations: 1. Recommend NT screening between 11-13 weeks. 2. Aneuploidy screening as ordered per primary OB. MFM/genetics consult is available if desired. 3. Anatomic survey at 18 weeks. 4. Additional follow-up as clinically indicated. Ultrasound is not diagnostic of chromosomal aneuploidy and does not detect all subtle defects. Normal ultrasound findings do not guarantee normal outcomes. Chris Phillip MD, PhD, FACOG Electronically Signed Final Report 02/25/2021 06:01 pm Final Dictated: 02/25/2021 9:01 am Dictating Physician: CHRIS PHILLIP Signed Date and Time: 02/25/2021 6:02 pm Signed by: CHRIS PHILLIP [facility] Medication Assisted Treatmen t Panelon 02-25-2021 Amphetamines Ql (U) Positive [facility] Comment on above: Performed By: #### M AT, HCGUR #### [facility] [address] [place], [place] Barbiturates Negative [facility] Comment on above: Performed By: #### M AT, HCGUR #### [facility] [address] [place], [place] Benzodiazepines Ql (U) Negative [facility] Comment on above: Performed By: #### M AT, HCGUR #### [facility] [address] [place], [place] Buprenorphine Screen Negative [facility] Comment on above: Performed By: #### M AT, HCGUR #### [facility] [address] [facility], [place] Cocaine Ql (U) Negative [facility] Comment on above: Performed By: #### M AT, HCGUR #### [facility] [address] [place], [place] Ethanol [Mass/Vol] Negative [facility] Comment on above: Performed By: #### M AT, HCGUR #### [facility] [address] [facility], [place] Fentanyl Negative Normal [facility] Comment on above: Performed By: #### M AT, HCGUR #### [facility] [address] [place], [place] Methadone Ql (U) Negative [facility] Comment on above: Performed By: #### M AT, HCGUR #### [facility] [address] [facility], [place] Opiates Ql (U) Negative Normal [facility] Comment on above: Performed By: #### M AT, HCGUR #### [facility] [address] [place], [place] Oxycodone/Oxymorphone Negative Normal [facility] Comment on above: Performed By: #### M AT, HCGUR #### [facility] [address] [place], [place] PCP Negative Normal [facility] Comment on above: Performed By: #### M AT, HCGUR #### [facility] [address] [place], [place] THC Negative [facility] Comment on above: Performed By: #### M AT, HCGUR #### [facility] [address], [place] Medication Assisted Treatmen t PanelOrdered By: Kaila Paris on 02-25-2021 Amphetamines Ql (U) Positive [facility] Work Phone: Barbiturates Negative [facility] Work Phone: Benzodiazepines Ql (U) Negative [facility] Work Phone: Buprenorphine Negative [facility] Work Phone: Cocaine Ql (U) Negative [facility] Work Phone: Comment See Below [facility] Work Phone: Comment on above: The expected value f or the drugs listed above is Negative. The following drugs or drug groups have been screened for by Immunoassay at the following thresholds: Amphetamine class(1000ng/mL), Barbituates(200ng/mL), Benzodiazepines(200ng/mL), Cocaine(300ng/mL), Ethanol (50 ng/mL), Methadone(300ng/mL), Opiates(300ng/mL), Oxycodone(100ng/mL), PCP(25ng/mL), Buprenorphine(5ng/mL), THC(50ng/mL), Fentanyl(1ng/mL). Positive results are NOT confirmed by a more specific alternative method unless requested. If confirmation is needed, request confirmation under separate order. NOTE: These results are for medical treatment only. Analysis performed using non-forensic procedures. Ethanol [Mass/Vol] Negative [facility] Work Phone: Fentanyl Negative [facility] Work Phone: Methadone Ql (U) Negative [facility] Work Phone: Opiates Ql (U) Negative [facility] Work Phone: Oxycodone + Oxymorphone Negative [facility] Work Phone: PCP Negative [facility] Work Phone: THC Negative [facility] Work Phone: Test Performed by [employer], [facility] [place] [address] [facility] Work Phone: [phone] [facility] Work Phone: [phone] No Panel InformationOrdered By: Mildred Chance on 02-25-2021 Test Performed by [facility] [employer], [address] [place] [address] [facility] Work Phone: [phone] [facility] Work Phone: [phone] RPR ReflexOrdered By: iMldred Chance on 02-25-2021 Reagin Ab RPR Ql (S) Non-Reactive [facility] [employer] [facility] Work Phone: [phone] Comment on above: Non-Reactive Test Performed by [employer], [address] [place] [address] [facility] Work Phone: [phone] [facility] Work Phone: [phone] Rapid Plasma Reagin (RPR) W Reflex Quanton 02-25-2021 Rapid Plasma Reagin (RPR) Qual Non-Reactive Normal [facility] [employer] Comment on above: Result Comment: Non- Reactive Performed By: #### H BSAG, HEPC, CMP3, RPRBP, HCVQ, HIVRC, HEMOG ####[address] [place] [address]#### RUBG ####[address] [place] [address] RubellaOrdered By: Mildred dukes on 02-25-2021 Rubella virus IgG Ql (S) 20.0 [facility] Work Phone: [phone] Comment on above: Interpretation Table : <10.0 Antibody NOT Detected >=10.0 Antibody Detected Test Performed by [facility], [address] [place], [place] [address] [facility] Work Phone: [facility] Work Phone: Rubella Immune Statuson 02-05 Rubella Immune Status 20.0 Normal [facility] Comment on above: Result Comment: Inte rpretation Table: <10.0 Antibody NOT Detected >=10.0 Antibody Detected Performed By: #### H BSAG, HEPC, CMP3, RPRBP, HCVQ, HIVRC, HEMOG ####[facility] [employer] [address] [place] [address]#### RUBG ####[employer] [address] [place] [address] TYPE AND SCREENOrdered By: Nasrin Chance on 02-25-2021 ABO Grouping A [facility] Work Phone: Rh Type Positive [facility] Work Phone: Test Performed by [facility], [address] [place] [address] [facility] Work Phone: [phone] [facility] Work Phone: BuprenorphineOrdered By: Payam Chance on 02-24-2021 Buprenorphine Negative [facility] Work Phone: Comment on above: Buprenorphine (Subox one) has been screened for by Immunoassay at 5 ng/mL threshold. POSITIVE results are not confirmed by a more specific alternative method unless requested. If confirmation is needed, request confirmation under separate order. NOTE: These results are for medical treatment only. Analysis performed using non-forensic procedures. C. Trachomatis / N. Gonorrho eae, DNA ProbeOrdered By: Mildred Chance on 02-24-2021 C. trachomatis DNA ITA+probe Ql (Genital specimen) NOT Detected Chlamydia trachomatis Nucleic Acid NOT Detected by DNA Amplification using the [employer] System. Culture is the only recommended test in medical-legal cases such as suspected child abuse or molestation. [facility] Work Phone: N. gonorrhoeae DNA ITA+probe Ql (Unsp spec) NOT Detected Neisseria gonorrhoeae Nucleic Acid NOT Detected by DNA Amplification using the Cepheid System. Culture is the only recommended test in medical-legal cases such as suspected child abuse or molestation. [facility] Work Phone: Test Performed by [facility], [address] [place] [address] [facility] Work Phone: [facility] Work Phone: Cannabinoid, Urine, Screenin g, Critical CareOrdered By: Mildred Chance on 02-24-2021 THC Negative [facility] Work Phone: Comment on above: Threshold= 50 ng/mL Chlamydia and GC PCR Panelon 02-24-2021 Chlamydia and GC PCR Panel Chlamydia trachomatis PCR --> Status: F NOT Detected Chlamydia trachomatis Nucleic Acid NOT Detected by DNA Amplification using the FiREappsid System. Culture is the only recommended test in medical-legal cases such as suspected child abuse or molestation. Chlamydia trachomatis Nucleic Acid NOT Detected by DNA Amplification using the Cepheid System. Culture is the only recommended test in medical-legal cases such as suspected child abuse or molestation. Neisseria gonorrhoeae PCR --> Status: F NOT Detected Neisseria gonorrhoeae Nucleic Acid NOT Detected by DNA Amplification using the Cepheid System. Culture is the only recommended test in medical-legal cases such as suspected child abuse or molestation. Neisseria gonorrhoeae Nucleic Acid NOT Detected by DNA Amplification using the CepWaremakersid System. Culture is the only recommended test in medical-legal cases such as suspected child abuse or molestation. Normal [facility] Comment on above: Performed By: #### T VPCR, CTNGP ####[facility] [place] [address] Drugs of Abuseon 02-24-2021 Amphetamines, Ur Positive Normal [facility] Comment on above: Performed By: #### F ENTU, BUPR, THC4, DRGA4, AMPCF #### [facility] [address] [place] [address] Opiates, Ur Negative Normal [facility] Comment on above: Performed By: #### F ENTU, BUPR, THC4, DRGA4, AMPCF #### [facility] [address] [place] [address] Phencyclidine (PCP), Ur Negative Normal [facility] Comment on above: Result Comment: The expected value for all of the drugs listed above is Negative. The following drugs or drug groups have been screened for by Immunoassay at the following thresholds: Amphetamine class (1000 ng/mL), Barbiturates (200 ng/mL), Benzodiazepines (200 ng/mL), Cocaine (300 ng/mL), Methadone (300 ng/mL), Opiates (300 ng/mL), Oxycodone (100 ng/mL), and PCP (25 ng/mL). NOTE: These results are for medical treatment only. Analysis performed using non-forensic procedures. POSITIVE results are NOT confirmed by a more specific alternative method unless requested. If confirmation is needed, request confirmation under separate order. Performed By: #### F ENTU, BUPR, THC4, DRGA4, AMPCF #### [address], [place] Methadone, Ur Negative Normal [facility] Comment on above: Performed By: #### F ENTU, BUPR, THC4, DRGA4, AMPCF #### [address] [address] [place], [place] Oxycodone/Oxymorphine ,Ur Negative Normal [facility] Comment on above: Performed By: #### F ENTU, BUPR, THC4, DRGA4, AMPCF #### [address] [address] [place], [place] Cocaine, Ur Negative Normal [facility] Comment on above: Performed By: #### F ENTU, BUPR, THC4, DRGA4, AMPCF #### [address] [place], [place] Benzodiazepines, Ur Negative Normal [facility] Comment on above: Performed By: #### F ENTU, BUPR, THC4, DRGA4, AMPCF #### [address] [address] [place], [place] Barbiturates, Ur Negative Normal [facility] Comment on above: Performed By: #### F ENTU, BUPR, THC4, DRGA4, AMPCF #### [address], [place] FENTANYL, URINEOrdered By: Nasrin Chance on 02-24-2021 Fentanyl Negative Negative NA [facility] Work Phone: Comment on above: Fentanyl has been sc reened for by Immunoassay at a 1 ng/ml threshold. POSITIVE results are not confirmed by a more specific alternative method unless requested. If confirmation is needed, request confirmation under separate order. NOTE: These results are for medical treatment only. Analysis performed using non-forensic procedures. HCG,Urine QualOrdered By: Sa kimo Paris on 02-24-2021 Beta HCG ( test) Ql (U) Positive Normal Negative [employer] Work Phone: Comment on above: is the most common reason for HCG in urine, although choriocarcinoma, hydatidiform mole, and certain nontropho- blastic malignancies also result in detectable urinary HCG levels. Sensitivity = 20mIU/mL. Result Comment: is the most common reason for HCG in urine, although choriocarcinoma, hydatidiform mole, and certain nontropho- blastic malignancies also result in detectable urinary HCG levels. Sensitivity = 20mIU/mL. Performed By: #### M AT, HCGUR #### [facility] [employer] [address] [place] [address] Hepatitis C RNA Quanton - Note Interpretation Normal [facility] Comment on above: Result Comment: The linear detection limit for this assay is 15 HCV IU/ml. A result of <15 IU (<1.18 log IU) indicates that HCV was detected, but at a level below the linear cutoff. A result of None Detected means that no HCV RNA was detected. Performed By: #### H BSAG, HEPC, CMP3, RPRBP, HCVQ, HIVRC, HEMOG ####[facility] [address] [place] [address]#### RUBG ####[facility] [employer] [place] [address] Medication Assisted Treatmen t Panelon 02-24-2021 MAT Panel Test Comment See Below Normal [facility] Comment on above: Result Comment: The expected value for the drugs listed above is Negative. The following drugs or drug groups have been screened for by Immunoassay at the following thresholds: Amphetamine class(1000ng/mL), Barbituates(200ng/mL), Benzodiazepines(200ng/mL), Cocaine(300ng/mL), Ethanol (50 ng/mL), Methadone(300ng/mL), Opiates(300ng/mL), Oxycodone(100ng/mL), PCP(25ng/mL), Buprenorphine(5ng/mL), THC(50ng/mL), Fentanyl(1ng/mL). Positive results are NOT confirmed by a more specific alternative method unless requested. If confirmation is needed, request confirmation under separate order. NOTE: These results are for medical treatment only. Analysis performed using non-forensic procedures. Performed By: #### M AT, HCGUR #### [facility] [employer] [address] [place] [address] No Panel InformationOrdered By: Mildred Chance on 02-24-2021 Test Performed by [facility], [address] [place] [address] [facility] Work Phone: [phone] [facility] Work Phone: [phone] Test Performed by [facility], [address] [place] [address] [employer] Work Phone: [phone] [facility] Work Phone: [phone] [facility], Urineon 02-24-2021 THC, Ur Negative Normal [facility] Comment on above: Result Comment: Thre shold= 50 ng/mL Performed By: #### F ENTU, BUPR, THC4, DRGA4, AMPCF #### [facility] [employer] [address] [place] [address] URINE DRUG SCREENOrdered By: Mildred Chance on 02-24-2021 Amphetamines, urine Positive [facility] Work Phone: [phone] Barbiturates, Ur Negative [facility] Work Phone: [phone] Benzodiazepine Ur Qual Negative [facility] Work Phone: [phone] Cocaine Metabolites, Ur Negative [facility] Work Phone: [phone] Methadone, Urine Negative [facility] Work Phone: [phone] Opiates, Urine Negative [employer] Work Phone: [phone] Oxycodone Screen, Ur Negative [facility] Work Phone: [phone] PCP, Urine Negative [facility] Work Phone: [phone] Comment on above: The expected value f or all of the drugs listed above is Negative. The following drugs or drug groups have been screened for by Immunoassay at the following thresholds: Amphetamine class (1000 ng/mL), Barbiturates (200 ng/mL), Benzodiazepines (200 ng/mL), Cocaine (300 ng/mL), Methadone (300 ng/mL), Opiates (300 ng/mL), Oxycodone (100 ng/mL), and PCP (25 ng/mL). NOTE: These results are for medical treatment only. Analysis performed using non-forensic procedures. POSITIVE results are NOT confirmed by a more specific alternative method unless requested. If confirmation is needed, request confirmation under separate order. Test Performed by [address] [address] [facility] Work Phone: [phone] Work Phone: Jay 10-05-2020 EMERGENCY PHYSICIAN REPORT This is a preliminary report only, as the practitioner review and authentication has not occurred. Normal [facility] ER PHYSICIAN ASSESSMENT RECORDS : FlexChartData Event Time: 10/05/2020 14:40 Status: Signed [facility] Reji Lorenzo [[id number] ] Attending Physician 1995 Chart (V2b) Chart created at 10/05/2020 14:29 by Yuniel Leiva Chart closed at 10/05/2020 15:35 Entry in Emergency Department at 10/05/2020 13:31, departure at 10/05/2020 15:47 Patient Name: Reji Lorenzo Record Number: [id number] Date: 10/05/2020 14:29 Entered Department at: 10/05/2020 13:31 Patient Seen at: 10/05/2020 13:58 Historian: Patient Chief Complaint:C/O ABDOMINAL PAIN FOR SEVERAL DAYS Triage Note reviewed and Initial Vital Signs reviewed. Temperature: 98 F (36.7 C). Pulse: 76. Respiratory Rate: 20. Blood-pressure: 110/56. Oxygen Saturation: 96% room air; Normal. History of Present Illness: 24-Year-old female presents for evaluation she has pain in the left pelvis area for the last several days. She does note is worse when she urinates. She denies any urgency or frequency. No vaginal bleeding or discharge is abnormal. LMP was 2 weeks ago. She does have a history of ovarian cyst and think that this may be the etiology. She has not required any surgical intervention for these in the past. [facility] PATIENT NAME: REJI LORENZO [facility] MEDICAL REC #: [id number] [place] [address] EMERGENCY DEPARTMENT REPORT EMERGENCY DEPARTMENT PHYSICIAN Review of Systems. All other systems reviewed and negative.. Past History, Medications, Allergies, Social History and Family History reviewed in nurses note. Medications: Reviewed RN Note. Allergies: Reviewed RN Note Penicillins(*N/A), Clindamycin(*N/A) Social History: Reviewed RN Note. Family History: Reviewed RN Note Physical Examination: General: Alert Neck: Supple Respiratory: No Resp Distress and Normal Breath Sounds Cardio-Vascular: RRR Abdomen: Normal Bowel Sounds, Soft and Suprapubic Extremity: No edema Neurological: Alert, Oriented X3 and No Gross Weakness Skin: Warm and Dry Psychological: Mood/Affect Normal UA COMPLETE, information as of 10/05/2020, 2:15 pm + +---------+-- -------+---------+------ ---+-------- + + +---------+-- -------+---------+------ ---+-------- + + +---------+-- -------+---------+------ ---+-------- + + +---------+-- -------+---------+------ ---+-------- + + +---------+-- -------+---------+------ ---+-------- + [facility] PATIENT NAME: REJI LORENZO[address] [facility] MEDICAL REC #: [id number] [place] [address] EMERGENCY DEPARTMENT REPORT EMERGENCY DEPARTMENT PHYSICIAN AMORPHOUS CRYST: Mod Ul; MUCUS: Trace; SQUAMOUS EPIS: 4 Epi/Hpf; UA BACTERIA: Trace /Hpf URINE , information as of 10/05/2020, 2:22 pm UR HCG QUAL: Neg; UR SPEC GRAV: 1.023 Medical Decision Making 24-Year-old female presents for evaluation with symptoms that she thinks she may have an ovarian cyst. She also had did have some lower urinary symptoms. I did check a urinalysis to evaluate for potential UTI. This is negative. At this time exam is unremarkable. She has not had complicated cyst in the past. She will be discharged home to monitor symptoms for the next 7 days. If symptoms persist then outpatient work-up and imaging study would be necessary though I do not think are necessary at this time. She is agreeable this plan peer Additional Information: Discussed Results, Diagnosis and Follow-Up with Patient. Clinical Impression: 1. Acute left adnexal pain consistent with previous ovarian cyst Disposition: Discharged *Home. Condition: Stable MSE completed. I was the primary ED attending.. : Discharge Report Event Time: 10/05/2020 15:39 ===DISCHARGE REPORT=== : FlexChartData Event Time: 10/05/2020 14:40 : Discharge Report Event Time: 10/05/2020 15:39 Status: Draft [facility] PATIENT NAME: REJI LORENZO [address] [place] [address] Dr[facility] [place] MEDICAL REC #: [id number] [place] [address] EMERGENCY DEPARTMENT REPORT EMERGENCY DEPARTMENT PHYSICIAN Reasons to Return to the ER: You must return to the ER for any new, worsening or changing symptoms, or if you feel more ill or sick in any way. This is the most important thing to remember. Follow-up: The care you received in the ER was given on an emergency basis only, and it is often not possible to completely treat or diagnose a problem in a single ER visit. You must see your follow-up doctor for a recheck within a week unless you receive inst (more content not included)... Normal [facility] UA COMPLETEon 10-05-2020 AMORPHOUS CRYST MOD Normal [facility] Comment on above: Order Comment: Campu s: M Performed By: #### L 600.83347 #### [facility] [address] [place] [address] Color (U) Yellow [facility] Comment on above: Order Comment: Rigobertou s: M Performed By: #### L 600.63303 #### [facility] [address] [place] [address] Glucose (U) [Mass/Vol] Negative Normal NORMAL [facility] Comment on above: Order Comment: Campu s: M Performed By: #### L 600.95677 #### [facility] [address] [place], [place] [id number] Mucus Ql (Urine sed) TRACE Normal NEGATIVE [facility] Comment on above: Order Comment: Campu s: M Performed By: #### L 600.79619 #### [facility] [address] [place] [address] SQUAMOUS EPIS 4 EPI/HPF Normal 0-5 [facility] Comment on above: Order Comment: Campu s: M Performed By: #### L 600.39684 #### [facility] [address] [place] [address] UA APPEARANCE Cloudy Normal CLEAR [facility] Comment on above: Order Comment: Campu s: M Performed By: #### L 600.43638 #### [facility] [address] [place] [address] UA BACTERIA TRACE Normal NONE [facility] Comment on above: Order Comment: Campu s: M Performed By: #### L 600.64282 #### [facility] [address] [place] [address] UA BILIRUBIN Negative Normal NEGATIVE [facility] Comment on above: Order Comment: Campu s: M Performed By: #### L 600.38073 #### [facility] [address] [place] [address] UA BLOOD Negative Normal NEGATIVE [facility] Comment on above: Order Comment: Campu s: M Performed By: #### L 600.39682 #### [facility] [address] [place], [place] [address] UA KETONE Negative Normal NEGATIVE [facility] Comment on above: Order Comment: Campu s: M Performed By: #### L 600.39016 #### [facility] [address] [place], [place] [address] UA LK ESTERASE Negative Normal NEGATIVE [facility] Comment on above: Order Comment: Campu s: M Performed By: #### L 600.06972 #### [facility] [address] [place] [address] UA NITRITE Negative Normal NEGATIVE [facility] Comment on above: Order Comment: Campu s: M Performed By: #### L 600.82746 #### [facility] [address] [place] [address] UA PH 7.0 Normal 5-6 [facility] Comment on above: Order Comment: Campu s: M Performed By: #### L 600.15062 #### [facility] [address] [place], [place] [address] UA PROTEIN Negative Normal NEGATIVE [facility] Comment on above: Order Comment: Campu s: M Performed By: #### L 600.88454 #### [facility] [address] [place] [address] UA RBC 1 RBC/HPF Normal 0-3 [facility] Comment on above: Order Comment: Campu s: M Performed By: #### L 600.65064 #### [facility] [address] [place], [place] [address] UA SPEC GRAV 1.023 Normal 1.005-1.030 [facility] Comment on above: Order Comment: Campu s: M Performed By: #### L 600.51689 #### [facility] [address] [place] [address] UA UROBILINOGEN Negative Normal NORMAL [facility] Comment on above: Order Comment: Campu s: M Performed By: #### L 600.93581 #### [facility] [place] [address] UA WBC NONE Low 0-5 [facility] Comment on above: Order Comment: Campu s: M Performed By: #### L 600.61536 #### [facility] [place] [address] URINE PREGNANCYon 10-05-2020 Beta HCG ( test) Ql (U) Negative Normal NEGATIVE [facility] Comment on above: Order Comment: Campu s: M Performed By: #### L 600.74829 #### [facility] [address] [place] [address] UR SPEC GRAV 1.023 Normal 1.005-1.030 [facility] Comment on above: Order Comment: Campu s: M Performed By: #### L 600.64123 #### [facility] [address] [place] [address] B12on 09-15-2020 Cobalamin (Vitamin B12) [Mass/Vol] 575.0 pg/mL Normal 193-986 [facility] Comment on above: Performed By: #### L 500.13812 #### [facility] [address] [place] [address] CBCon 09-14-2020 Erythrocyte distribution width (RBC) [Ratio] 12.5 % Normal 11-14.5 [facility] Comment on above: Performed By: #### L 500.34377 #### [facility] [address] [place] [address] Hematocrit (Bld) [Volume fraction] 39.4 % Normal 35.0-47.0 [facility] Comment on above: Performed By: #### L 500.50554 #### [facility] [address] [place] [address] Hemoglobin (Bld) [Mass/Vol] 12.8 g/dL Normal 11.5-15.5 [facility] Comment on above: Performed By: #### L 500.53584 #### [facility] [address] [place], [place] [address] MCHC (RBC) [Mass/Vol] 32.5 g/dL Normal 32.0-36.0 [facility] Comment on above: Performed By: #### L 500.27801 #### [facility] [address] [place] [address] MCV (RBC) [Entitic vol] 93.6 fL Normal 80.0-99.0 [facility] Comment on above: Performed By: #### L 500.06929 #### [facility] [address] [place], [place] [address] Nucleated RBC/100 WBC (Bld) [Ratio] 0.0 % Normal Less than 1 [facility] Comment on above: Performed By: #### L 500.51469 #### [facility] [address] [place] [address] Platelet mean volume (Bld) [Entitic vol] 8.8 fL Low 9.4-12.4 [facility] Comment on above: Performed By: #### L 500.28946 #### [facility] [address] [place], [place] [address] PLT 338 K/CU MM Normal 150-450 [facility] Comment on above: Performed By: #### L 500.55104 #### [facility] [address] [place] [address] RBC 4.21 M/CU MM Normal 3.90-5.30 [facility] Comment on above: Performed By: #### L 500.98409 #### [facility] [address] [place] [address] WBC 9.0 K/CUMM Normal 4.5-11.0 [facility] Comment on above: Performed By: #### L 500.18601 #### [facility] [address] [place], [place] [id number] FOLIC ACIDon 09-14-2020 FOLIC ACID 22.77 NG/ML Normal >3.0 [facility] Comment on above: Result Comment: Slig ht Hemolysis, Result may be affected. Performed By: #### L 500.85382, L500.74827, L500.63931, L550.83274, L500.37396 #### [facility] [address] [place], [place] [id number] HGB A1C GLYCOHBon 09-14-2020 HbA1c (Bld) [Mass fraction] 5.6 % Normal 4.3-6.0 [facility] Comment on above: Performed By: #### L 500.34441 #### [facility] [address] [place] [address] IRON PANELon 09-14-2020 Iron [Mass/Vol] 87 ug/dL Normal 50-170 [facility] Comment on above: Result Comment: Royx ents treated with metal-binding drugs (e.g.deferoxamine) may have depressed iron values, as chelated iron may not properly react in the Siemens iron assay. Performed By: #### L 500.09392, L500.02748, L500.39254, L550.28073, L500.36459 #### [facility] [address] [place] [address] IRON SAT 21 % Low 22-44 [facility] Comment on above: Performed By: #### L 500.48636, L500.47943, L500.88117, L550.59707, L500.76241 #### [facility] [address] [place] [address] TIBC 420 UG/DL Normal 221-481 [facility] Comment on above: Performed By: #### L 500.25431, L500.52668, L500.19188, L550.18073, L500.92184 #### [facility] [address] [place] [address] LIPIDon 09-14-2020 CHOL 182 MG/dL Normal 0-199 [facility] Comment on above: Performed By: #### L 500.90037, L500.76005, L500.29259, L550.09293, L500.99220 #### [facility] [address] [place] [address] Cholesterol in HDL [Mass/Vol] 53 mg/dL Normal GREATER THAN 40 [facility] Comment on above: Result Comment: Roxy ents receiving Metamizole prior to venipuncture, may have falsely depressed results. Performed By: #### L 500.78018, L500.25237, L500.99313, L550.75481, L500.79103 #### [facility] [address] [place] [address] Cholesterol in LDL [Mass/Vol] 105 mg/dL Normal [facility] Comment on above: Result Comment: ___C HOLESTEROL/HDL RATIO RISK___ CHD RISK = Total CHOL LDL HDL (CHOL/HDL) Recommended <200 <130 >40 <3.4 Borderline 200-239 130-159 3.4-4.99 High >240 >160 >5.0 Performed By: #### L 500.84932, L500.77779, L500.01067, L550.82157, L500.62760 #### [facility] [place] [address] Triglyceride [Mass/Vol] 119 mg/dL Normal 30-149 [facility] Comment on above: Result Comment: Roxy ents receiving either N-Acetylcysteine (NAC) or Metamizole prior to venipuncture, may have falsely depressed results. Performed By: #### L 500.58720, L500.30008, L500.90280, L550.92893, L500.10296 #### [facility] [address] [place] [address] TSHon 09-14-2020 TSH 0.768 UIU/ML Normal 0.358-3.740 [facility] Comment on above: Result Comment: 3rd generation ultra sensitive TSH Performed By: #### L 500.98014, L500.41212, L500.72074, L550.61176, L500.33733 #### [facility] [place] [address] [id number] 09-14-2020 [id number] 21.7 NG/ML Low 30.0-100.0 [facility] Comment on above: Result Comment: Defi ciency Less than 20 ng/mL Insufficiency 20 - Less than 30 ng/mL Sufficiency 30 - 100 ng/mL Performed By: #### L 500.23151, L500.72083, L500.48332, L550.10500, L500.62540 #### [facility] [address] [place] [address] LIVERon 08-23-2020 Albumin [Mass/Vol] 3.8 g/dL Normal 3.2-5.0 [facility] Comment on above: Performed By: #### L 500.08301 #### [facility] [address] [place], [place] [id number] Albumin/Globulin [Mass ratio] 1.1 {ratio} Normal 0.8-2.0 [facility] Comment on above: Performed By: #### L 500.86758 #### [facility] [address] [place] [address] ALK PHOS 83 U/L Normal 45-117 [facility] Comment on above: Performed By: #### L 500.03766 #### [facility] [address] [place] [address] ALT [Catalytic activity/Vol] 85 U/L High 13-61 [facility] Comment on above: Result Comment: RESU LTS MAY BE FALSELY DEPRESSED AFTER THE ADMINISTRATION OF SULFASALAZINE AND/OR SULFAPYRIDINE. Performed By: #### L 500.27578 #### [facility] [address] [place] [address] AST [Catalytic activity/Vol] 43 U/L High 8-34 [facility] Comment on above: Result Comment: RESU LTS MAY BE FALSELY DEPRESSED AFTER THE ADMINISTRATION OF SULFASALAZINE AND/OR SULFAPYRIDINE. Performed By: #### L 500.05188 #### [facility] [address] [place], [place] [id number] BILI DIRECT LESS THAN 0.1 Normal 0.00-0.36 [facility] Comment on above: Result Comment: NOTE NEW NORMAL RANGE DUE TO REAGENT CHANGE Performed By: #### L 500.70522 #### [facility] [address] [place] [address] BILI TOTAL 0.20 MG/DL Normal 0.2-1.0 [facility] Comment on above: Performed By: #### L 500.07475 #### [facility] [address] [place] [address] Globulin (S) [Mass/Vol] 3.6 g/dL Normal 2.2-4.2 [facility] Comment on above: Performed By: #### L 500.65986 #### [facility] [address] [place] [address] Protein [Mass/Vol] 7.4 g/dL Normal 6.0-8.5 [facility] Comment on above: Performed By: #### L 500.14264 #### [facility] [address] [place] [address] LIVERon 08-03-2020 Albumin [Mass/Vol] 4.0 g/dL Normal 3.2-5.0 [facility] Comment on above: Performed By: #### L 500.03099 #### [facility] [address] [place] [address] Albumin/Globulin [Mass ratio] 1.1 {ratio} Normal 0.8-2.0 [facility] Comment on above: Performed By: #### L 500.31816 #### [facility] [address] [place] [address] ALK PHOS 110 U/L Normal 45-117 [facility] Comment on above: Performed By: #### L 500.72912 #### [facility] [address] [place] [address] ALT [Catalytic activity/Vol] 300 U/L High 13-61 [facility] Comment on above: Result Comment: RESU LTS MAY BE FALSELY DEPRESSED AFTER THE ADMINISTRATION OF SULFASALAZINE AND/OR SULFAPYRIDINE. Performed By: #### L 500.12016 #### [facility] [place] [address] AST [Catalytic activity/Vol] 107 U/L High 8-34 [facility] Comment on above: Result Comment: RESU LTS MAY BE FALSELY DEPRESSED AFTER THE ADMINISTRATION OF SULFASALAZINE AND/OR SULFAPYRIDINE. Performed By: #### L 500.36638 #### [facility] [address] [place] [address] BILI DIRECT LESS THAN 0.1 Normal 0.00-0.36 [facility] Comment on above: Result Comment: NOTE NEW NORMAL RANGE DUE TO REAGENT CHANGE Performed By: #### L 500.72837 #### [facility] [address] [place] [address] BILI TOTAL 0.30 MG/DL Normal 0.2-1.0 [facility] Comment on above: Performed By: #### L 500.68751 #### [facility] [address] [place] [address] Globulin (S) [Mass/Vol] 3.7 g/dL Normal 2.2-4.2 [facility] Comment on above: Performed By: #### L 500.83061 #### [facility] [address] [place] [address] Protein [Mass/Vol] 7.7 g/dL Normal 6.0-8.5 [facility] Comment on above: Performed By: #### L 500.43020 #### [facility] [address] [place], [place] [id number] Cult, Genitalon 02-11-2019 Bacteria identified Aer cx Nom (Genital specimen) [facility] Work Phone: Comment on above: PATIENT: PRESLEY LORENZO LOCATION: [facility]#: [id number] : 89 AGE: SEX: F ORDERED BY: MATTHEW THOMAS: VAGINAL COLLECTED: 02/11/19 09:45ANTIBIOTICS AT [facility].: RECEIVED : 02/11/19 22:07SITE: VAGINAL R E S U L T S GENITAL CULTURE, BACT. FINAL 02/15/19 15:01 NO PATHOGENS Culture examined for Group A Streptococcus, Group B Streptococcus, Neisseria gonnorhoeae and Yeast ONLY. PATIENT: PRESLEY LORENZO LOCATION: [facility]#: [id number] : 89 AGE: SEX: F ORDERED BY: MAYA THOMASSOURCE: VAGINAL COLLECTED: 02/11/19 09:45ANTIBIOTICS AT [facility].: RECEIVED : 02/11/19 22:07SITE: VAGINAL R E S U L T S GENITAL CULTURE, BACT. PRELIM 02/13/19 11:59 CULTURE IN PROGRESS. FINAL REPORT IN 72 HOURS. GENITAL CULTURE, BACT.on GENITAL CULTURE, BACT. PATIENT: REJI LORENZO LOCATION: [facility]#: [id number] : 89 AGE: SEX: F ORDERED BY: MAYA THOMAS SOURCE: VAGINAL COLLECTED: 02/11/19 09:45 ANTIBIOTICS AT [facility].: RECEIVED : 02/11/19 22:07 SITE: VAGINAL R E S U L T S GENITAL CULTURE, BACT. FINAL 02/15/19 15:01 NO PATHOGENS Culture examined for Group A Streptococcus, Group B Streptococcus, Neisseria gonnorhoeae and Yeast ONLY. Normal [facility] Comment on above: Performed By: #### G ENLO #### [facility] [address] [place] [address] Chlamydia GC by PCRon 2018 Chlamydia by PCR. Not Detected Normal Not Detected [facility] Comment on above: Result Comment: Xper t CT/NG Assay performance has not been evaluated in patients less than 14 years of age. Performed By: #### 3 [id number] #### [facility] [employer] , Gonorrhoeae by PCR Not Detected Normal Not Detected [facility] Comment on above: Result Comment: Xper t CT/NG Assay performance has not been evaluated in patients less than 14 years of age. Performed By: #### 3 [id number] #### [facility] [employer] , Chlamydia GC by PCRon 2018 Chlamydia by PCR. Not Detected Normal Not Detected [facility] Comment on above: Result Comment: Xper t CT/NG Assay performance has not been evaluated in patients less than 14 years of age. Performed By: #### 3 [id number] #### [facility]LENA [facility] Micro SubSection , Gonorrhoeae by PCR Detected Abnormal Not Detected [facility] Comment on above: Result Comment: Xper t CT/NG Assay performance has not been evaluated in patients less than 14 years of age. Performed By: #### 3 [id number] #### [facility] [employer] , XR Elbow 3+ Views Righton XR Elbow 3+ Views Right Exam Date/Time: 11/13/2018 00:09 EDT Reason for Exam: Pain, Non Traumatic Report STUDY: XR Elbow 3+ Views Right;; 11/13/2018 12:09 am INDICATION: Pain, Non Traumatic. COMPARISON: None. ACCESSION NUMBER(S): [id number] ORDERING CLINICIAN: Prashant Dao FINDINGS: There is soft tissue edema along the ulnar aspect of the proximal forearm and about the medial epicondyle. No acute fracture, malalignment, or elbow joint effusion. There are several punctate lucencies that are suspicious for gas. IMPRESSION: Soft tissue edema along the proximal ulnar aspect of the forearm and about the medial epicondyle with several foci of lucency, raising concern for soft tissue gas. This predominantly appears superficial/subcutaneous in location although please correlate with concern for necrotizing deep soft tissue infection for which CT would better evaluate. FINAL REPORT Dictated: 11/13/2018 0:27 am Alex Elizabeth MD Signed (Electronic Signature): 11/13/2018 0:27 am Signed by: Alex Elizabeth MD Technologist: LITA Lyman [facility] FENTANYL CONFIRM, URINEon FENTANYL CONFIRM,U <1.[address] [facility] Comment on above: Result Comment: INTE RPRETIVE INFORMATION: Fentanyl and Metabolite, UrineMethodology: Quantitative Liquid Chromatography-Tandem MassSpectrometryPositive cutoff: 1.0 ng/mLFor medical purposes only; not valid for forensic use.The absence of expected drug(s) and/or drug metabolite(s) mayindicate non-compliance, inappropriate timing of specimencollection relative to drug administration, poor drug absorption,diluted/adulterated urine, or limitations of testing. Theconcentration value must be greater than or equal to the cutoff bety reported as positive. Interpretive questions should be directedto the laboratory.Test [facility] and [facility]. See Compliance Statement B: Lumiy/ Performed By: #### F ENTU ####[facility] [address] [facility] [place] [address] NORFENTANYL CONFIRM,U <1.[address] [facility] Comment on above: Result Comment: Perf ormed by [employer],[address],[place] [address] qct.Lumiy, Alin Jarquin MD - Lab. Director Performed By: #### F ENTU ####[facility] [address] [place] [address] BENZODIAZEPINES CONF,URINEon 12-31-2017 7-AMINOCLONAZEPAM <[address] [facility] Comment on above: Performed By: #### B ENCN ####[facility] [address] [place] [address] ALPHA-HYDROXYALPRAZOL AM <[address] [facility] Comment on above: Performed By: #### B ENCN ####[facility] [address] [place] [address] ALPHA-HYRDOXYMIDAZOLA M <[address] [facility] Comment on above: Result Comment: Perf ormed by [employer],[address],[place] [address] bdd.Lumiy, Alin Jarquin MD - Lab. Director Performed By: #### B ENCN ####[facility] [address] [facility] [place] [address] ALPRAZOLAM <[address] [facility] Comment on above: Performed By: #### B ENCN ####[facility] [address] [place] [address] CHLORDIAZEPOXIDE <[address] [facility] Comment on above: Performed By: #### B ENCN ####[facility] [address] [place] [address] CLONAZEPAM <[address] [facility] Comment on above: Performed By: #### B ENCN ####[facility] [address] [place] [address] DIAZEPAM <[address] [facility] Comment on above: Result Comment: INTE RPRETIVE INFORMATION: Benzodiazepines, Urine, QuantitativeMethodology: Quantitative Liquid Chromatography-Tandem MassSpectrometryPositive cutoff: 20 ng/mL unless specified below:Alprazolam 5 ng/mLAlpha-hydroxyalprazolam 5 ng/mLClonazepam 5 ng/mL7-aminoclonazepam 5 ng/mLFor medical purposes only; not valid for forensic use.Identification of specific drug(s) taken by specimen donor isproblematic due to common metabolites, some of which areprescription drugs themselves. The absence of expected drug(s)and/or drug metabolite(s) may indicate non-compliance,inappropriate timing of specimen collection relative to drugadministration, poor drug absorption, diluted/adulterated urine,or limitations of testing. The concentration value must be greaterthan or equal to the cutoff to be reported as positive.Interpretive questions should be directed to the laboratory.Test developed and characteristics determined by [facility]. See Compliance Statement B: [employer]/CS Performed By: #### B ENCN ####[facility] [address] [place] [address] LORAZEPAM <[address] [facility] Comment on above: Performed By: #### B ENCN ####[facility] [address] [place] [address] MIDAZOLAM <[address] [facility] Comment on above: Performed By: #### B ENCN ####[facility] [address] [place] [address] NORDIAZEPAM <[address] [facility] Comment on above: Performed By: #### B ENCN ####[facility] [address] [place] [address] OXAZEPAM <[address] [facility] Comment on above: Performed By: #### B ENCN ####[facility] [address] [place] [address] TEMAZEPAM <[address] [facility] Comment on above: Performed By: #### B ENCN ####[facility] [address] [place] [address] BUPRENORPHINE CONFIRM,URINEo n 12-31-2017 BUPRENORPHINE GLUC,U 250 ng/mL Normal [facility] Comment on above: Result Comment: Cons istent with use of a buprenorphine-containing drug.Glucuronide concentrations are semi-quantitative. Performed By: #### B UPR ####[facility] [address] [place] [address] BUPRENORPHINE,U <[address] [facility] Comment on above: Result Comment: INTE RPRETIVE INFORMATION: Buprenorphine and Metabolites, Urine, QuantitativeMethodology: Quantitative Liquid Chromatography-Tandem MassSpectrometryPositive cutoff:Buprenorphine 2 ng/mLNorbuprenorphine 2 ng/mLBuprenorphine glucuronide 5 ng/mLNorbuprenorphine glucuronide 5 ng/mLNaloxone 100 ng/mLFor medical purposes only; not valid for forensic use.The presence of metabolite(s) without parent drug is common andmay indicate use of parent drug during the prior week. Naloxone isincluded to detect addition of a naloxone-containing drug directlyinto the urine.The absence of expected drug(s) and/or drug metabolite(s) mayindicate non-compliance, inappropriate timing of specimencollection relative to drug administration, poor drug absorption,diluted/adulterated urine, or limitations of testing. Theconcentration value must be greater than or equal to the cutoff bety reported as positive. Interpretive questions should be directedto the laboratory.Test developed and characteristics determined by [facility]. See Compliance Statement B: Lumiy/ Performed By: #### B UPR ####[facility] [address] [place] [address] NALOXONE,U <[address] [facility] Comment on above: Result Comment: Perf ormed by [employer],[address] [facility] [place] [address] ams.Lumiy, Alin Jarquin MD - Lab. Director Performed By: #### B UPR ####[facility] [address] [place] [address] NORBUPRENORPHINE GLUC,U 582 ng/mL Normal [facility] Comment on above: Performed By: #### B UPR ####[facility] [address] [place] [address] NORBUPRENORPHINE,U 146 ng/mL Normal [facility] Comment on above: Performed By: #### B UPR ####[facility] [address] [place] [address] COCAINE CONFIRM,URINEon 12-06 BENZOYLECGONINE,U <[address] [facility] Comment on above: Result Comment: INTE RPRETIVE INFORMATION: Cocaine Metabolite, Urine, QuantitativeMethodology: Quantitative Gas Chromatography-Mass Spectrometry.Positive cutoff: 50 ng/mLFor medical purposes only; not valid for forensic use.The concentration value must be greater than or equal to thecutoff to be reported as positive. Interpretive questions shouldbe directed to the laboratory.Test developed and characteristics determined by [employer]. See Compliance Statement B: Lumiy/CSPerformed by [employer],[address] [place] [address] ixz.Lumiy, Alin Jarquin MD - Lab. Director Performed By: #### C OCCN ####[address] [address] OPIATE CONFIRMATION,URINEon 12-31-2017 Acetaminophen mass conc <[address] [facility] Comment on above: Result Comment: INTE RPRETIVE INFORMATION: Opiates, Urine, QuantitativeMethodology: Quantitative Liquid Chromatography-Tandem MassSpectrometryPositive cutoff: 20 ng/mL except as specified below6-acetylmorphine 10 ng/mLFor medical purposes only; not valid for forensic use.Identification of specific drug(s) taken by specimen donor isproblematic due to common metabolites, some of which areprescription drugs themselves. The absence of expected drug(s)and/or drug metabolite(s) may indicate non-compliance,inappropriate timing of specimen collection relative to drugadministration, poor drug absorption, diluted/adulterated urine,or limitations of testing. All drug analytes covered are in thenon-glucuronidated (free) forms. The concentration value must begreater than or equal to the cutoff to be reported as positive. Eduard small amount of an unexpected drug analyte in the presence ofa large amount of an expected drug analyte may reflectpharmaceutical impurity. Interpretive questions should be directedto the laboratory.Test developed and characteristics determined by [facility]. See Compliance Statement B: Lumiy/CS Performed By: #### O PIC2 ####[place] [id number] CODEINE <[address] [facility] Comment on above: Performed By: #### O PIC2 ####[facility] [address] [place] [address] HYDROCODONE <[address] [facility] Comment on above: Performed By: #### O PIC2 ####[facility] [address] [facility] [place] [address] HYDROMORPHONE <[address] [facility] Comment on above: Performed By: #### O PIC2 ####[facility] [address] [place] [address] MORPHINE <[address] [facility] Comment on above: Performed By: #### O PIC2 ####[facility] [address] [place] [address] NORHYDROCODONE <[address] [facility] Comment on above: Result Comment: Perf ormed by [facility],[address], [facility] [place] [address] ixa.Lumiy, Alin Jarquin MD - Lab. Director Performed By: #### O PIC2 ####[facility] [address] [place] [address] NOROXYCODONE <[address] [facility] Comment on above: Performed By: #### O PIC2 ####[facility] [address] [place] [address] NOROXYMORPHONE <[address] [facility] Comment on above: Performed By: #### O PIC2 ####[facility] [address] [facility] [place] [address] OXYCODONE <[address] [facility] Comment on above: Performed By: #### O PIC2 ####[facility] [address] [place] [address] OXYMORPHONE <[address] [facility] Comment on above: Performed By: #### O PIC2 ####[facility] [address] [facility] [place] [address] BUPRENORPHINE SCREEN TO CONF IRM,URINEon 12-29-2017 BUPRENORPHINE SCREEN,INTERP. See Note Normal [facility] Comment on above: Result Comment: INTE RPRETIVE INFORMATION:The absence of expected drug(s) and/or drug metabolite(s) mayindicate non-compliance, inappropriate timing of specimencollection relative to drug administration, poor drug absorption,diluted/adulterated urine, or limitations of testing. Theconcentration at which the screening test can detect a drug ormetabolite varies. Specimens for which drugs or drug classes aredetected by the screen are reflexed to a second, more specifictechnology (GC/MS and/or LC-MS/MS). The concentration value mustbe greater than or equal to the cutoff to be reported as positive.Interpretive questions should be directed to the laboratory.For medical purposes only; not valid for forensic use.Test developed and characteristics determined by [facility]. See Compliance Statement B: Lumiy/CSPerformed by [employer],[address] [place] [address] gxx.Lumiy, Alin Jarquin MD - Lab. Director Performed By: #### B UPRS ####[place] [id number] [address] BUPRENORPHINE SCREEN,URINE Positive Normal Cutoff 5 [facility] Comment on above: Result Comment: If t he screen is positive, then confirmation testing by massspectrometry will be added. Additional charges will apply. Performed By: #### B UPRS ####[address] [place] [address] DRUG SCREEN,PAIN MANAGEMENT W/ REFLEXon 12-27-2017 AMPHETAMINE SCREEN,U Negative Normal NEGATIVE [facility] Comment on above: Result Comment: CUTO FF LEVEL: 500 NG/ML Cross-reactivity has been reported with high concentrations of the following drugs: buproprion, chloroquine, chlorpromazine, ephedrine, mephentermine, fenfluramine, phentermine, phenylpropanolamine, pseudoephedrine, and propranolol. Performed By: #### D SPMR ####[id number] [place] [address] BARBITURATES SCREEN,U Negative Normal NEGATIVE [facility] Comment on above: Result Comment: CUTO FF LEVEL: 200 NG/ML Performed By: #### D SPMR ####[id number] [place] [address] BENZODIAZEPINES SCREEN,U Negative Normal NEGATIVE [facility] Comment on above: Result Comment: CUTO FF LEVEL: 200 NG/MLBenzodiazepine Confirmatory testing has been sent to a reference laboratoryand will be reported separately. Although the benzodiazepine screening testprovides rapid results; the confirmatory test provide the most sensitive andspecific assessment of drug presence or absence in the urine. Performed By: #### D SPMR ####[id number] [place] [address] CANNABINOIDS SCREEN,U Negative Normal NEGATIVE [facility] Comment on above: Result Comment: CUTO FF LEVEL: 50 NG/ML Performed By: #### D SPMR ####[id number] [place] [address] COCAINE METABOLITE SCREEN,U Negative Normal NEGATIVE [facility] Comment on above: Result Comment: CUTO FF LEVEL: 150 NG/ML Performed By: #### D SPMR ####[id number] [place] [address] DRUG SCREEN COMMENT. SEE BELOW Normal [facility] Comment on above: Result Comment: Drug screen results are presumptive and should not be used to assesscompliance with prescribed medication. Definitive confirmatory drug testinghas been added to this sample for any positive screen result and will bereported separately..Toxicology screening results are reported qualitatively. The concentrationmust be greater than or equal to the cutoff to be reported as positive. Theconcentration at which the screening test can detect an individual drug ormetabolite varies. The absence of expected drug(s) and/or drug metabolite(s)may indicate non-compliance, inappropriate timing of specimen collectionrelative to drug administration, poor drug absorption, diluted/adulteratedurine, or limitations of testing. For medical purposes only; not valid forforensic use..Interpretive questions should be directed to the laboratory medicaldirectors. Performed By: #### D SPMR ####[id number] [place] [address] METHADONE SCREEN,U Negative Normal NEGATIVE [facility] Comment on above: Result Comment: CUTO FF LEVEL: 150 NG/ML The metabolite S-gghgv-fzxqlhhzokgski (LAAM) is not detected by this method in concentrations that would be found in the urine of patients on LAAM therapy. Performed By: #### D SPMR ####[id number] [id number] OPIATES SCREEN,U Negative Normal NEGATIVE [facility] Comment on above: Result Comment: CUTO FF LEVEL: 300 NG/ML The opiate screen does not detect fentanyl, meperidine, or tramadol. Oxycodone is not consistently detected (refer to Oxycodone Screen, Urine result).Opiate/Oxycodone Confirmatory testing has been sent to a referencelaboratory and will be reported separately. Although the screening testsprovide rapid results; the confirmatory tests provide the most sensitive andspecific assessment of drug presence or absence in the urine. Performed By: #### D SPMR ####[id number] [id number] PCP SCREEN,U Negative Normal NEGATIVE [facility] Comment on above: Result Comment: CUTO FF LEVEL: 25 NG/ML Cross-reactivity has been reported with dextromethorphan. Performed By: #### D SPMR ####[id number] [place] [address] No Panel Information Group B Streptococcus Culture Group B Beta Streptococcus is not isolated. [facility] Work Phone: Vital Signs Date Time Vital Sign Value Performing Clinician Eulalia walker 11-11-2024 09:30-0400 Diastolic blood pressure 54 mm[Hg] Dr. Nando Murray MD Work Phone: [facility] 11-11-2024 09:30-0400 Heart rate 43 /min Dr. Nando Murray MD Work Phone: [facility] 11-11-2024 09:30-0400 Respiratory rate 18 /min Dr. Nando Murray MD Work Phone: [facility] 11-11-2024 09:30-0400 SaO2% (BldA) [Mass fraction] 100 % Dr. Nando Murray MD Work Phone: [facility] 11-11-2024 09:30-0400 Systolic blood pressure 104 mm[Hg] Dr. Nando Murray MD Work Phone: 1(705)920-488066 [place] [address] 11-11-2024 09:23-0400 Body temperature 98.2 [degF] Dr. Nando Murray MD Work Phone: 7(265)957-676978 [place] [address] 11-10-2024 17:53-0400 Body height 157.[address] Nando Murray MD Work Phone: 1(171)809-137678 [place] [address] 11-10-2024 17:53-0400 Body mass index (BMI) [Ratio] 20.8 kg/m2 Dr. Nando Murray MD Work Phone: 7(834)127-089378 [place] [address] 11-10-2024 17:53-0400 Body weight 51.[address] Nando Murray MD Work Phone: 2(277)738-036678 [place] [address] 11-10-2024 17:22-0400 Body temperature 98 [degF] Dr. Nando Murray MD Work Phone: 5(253)749-087778 [place] [address] 11-10-2024 17:22-0400 Diastolic blood pressure 78 mm[Hg] Dr. Nando Murray MD Work Phone: 0(889)354-287478 [place] [address] 11-10-2024 17:22-0400 Heart rate 66 /min Dr. Nando Murray MD Work Phone: 0(698)612-953078 [place] [address] 11-10-2024 17:22-0400 Respiratory rate 17 /min Dr. Nando Murray MD Work Phone: 4(131)049-323178 [place] [address] 11-10-2024 17:22-0400 SaO2% (BldA) [Mass fraction] 100 % Dr. Nando Murray MD Work Phone: 8(390)660-286678 [place] [address] 11-10-2024 17:22-0400 Systolic blood pressure 95 mm[Hg] Dr. Nando Murray MD Work Phone: 9(569)639-039178 [place] [address] 11-10-2024 10:41-0400 Body mass index (BMI) [Ratio] 20.5 kg/m2 Dr. Nando Murray MD Work Phone: 6(691)803-699878 [place] [address] 11-10-2024 10:41-0400 Body weight 50.[address] Nando Murray MD Work Phone: [facility] 11-10-2024 10:12-0400 Body height 157.[address] Nando Murray MD Work Phone: [facility] 10-30-2024 09:38-0400 Body mass index (BMI) [Ratio] 20.41 kg/m2 Heidi Ramirez MD Work Phone: [facility] 10-30-2024 09:38-0400 Body temperature 99 [degF] Heidi Ramirez MD Work Phone: [facility] 10-30-2024 09:38-0400 Body weight 50.62 kg Heidi Ramirez MD Work Phone: [facility] 10-30-2024 09:38-0400 Diastolic blood pressure 64 mm[Hg] Heidi Ramirez MD Work Phone: [facility] 10-30-2024 09:38-0400 Heart rate 80 /min Heidi Ramirez MD Work Phone: [facility] 10-30-2024 09:38-0400 Respiratory rate 12 /min Heidi Ramirez MD Work Phone: [facility] 10-30-2024 09:38-0400 SaO2% (BldA) [Mass fraction] 98 % Heidi Ramirez MD Work Phone: [facility] 10-30-2024 09:38-0400 Systolic blood pressure 110 mm[Hg] Heidi Ramirez MD Work Phone: [facility] 10-10-2024 08:05-0400 Body mass index (BMI) [Ratio] 20.96 kg/m2 Heidi Ramirez MD Work Phone: [facility] 10-10-2024 08:05-0400 Body temperature 98.29 [degF] Heidi Ramirez MD Work Phone: [facility] 10-10-2024 08:05-0400 Body weight 51.98 kg Heidi Ramirez MD Work Phone: [facility] 10-10-2024 08:05-0400 Diastolic blood pressure 70 mm[Hg] Heidi Ramirez MD Work Phone: [facility] 10-10-2024 08:05-0400 Heart rate 55 /min Heidi Ramirez MD Work Phone: [facility] 10-10-2024 08:05-0400 SaO2% (BldA) [Mass fraction] 97 % eHidi Ramirez MD Work Phone: [facility] 10-10-2024 08:05-0400 Systolic blood pressure 90 mm[Hg] Heidi Ramirez MD Work Phone: [facility] 09-19-2024 11:42-0400 Body mass index (BMI) [Ratio] 21.03 kg/m2 Amanda Podlogar MANAGER TRANSPORTATION.MANAGER PROVIDER RELATIONS Work Phone: [facility] 09-19-2024 11:42-0400 Body weight 52.16 kg Amanda Podlogar MANAGER TRANSPORTATION.MANAGER PROVIDER RELATIONS Work Phone: [facility] 09-19-2024 11:42-0400 Diastolic blood pressure 78 mm[Hg] Amanda Podlogar MANAGER TRANSPORTATION.MANAGER PROVIDER RELATIONS Work Phone: [facility] 09-19-2024 11:42-0400 Heart rate 85 /min Amanda Podlogar MANAGER TRANSPORTATION.MANAGER PROVIDER RELATIONS Work Phone: [facility] 09-19-2024 11:42-0400 Respiratory rate 18 /min Amanda Podlogar MANAGER TRANSPORTATION.MANAGER PROVIDER RELATIONS Work Phone: [facility] 09-19-2024 11:42-0400 SaO2% (BldA) [Mass fraction] 94 % Amanda Podlogar MANAGER TRANSPORTATION.MANAGER PROVIDER RELATIONS Work Phone: [facility] 09-19-2024 11:42-0400 Systolic blood pressure 124 mm[Hg] Amanda Reyes APRN.CNP Work Phone: 0(805)008-603838 [place] [address] 09-18-2024 13:18-0400 Body height 157.[address] Nando Murray MD Work Phone: 7(185)808-843378 [place] [address] 09-18-2024 13:18-0400 Body mass index (BMI) [Ratio] 21.4 kg/m2 Dr. Nando Murray MD Work Phone: 5(125)121-130378 [place] [address] 09-18-2024 13:18-0400 Body temperature 98.4 [degF] Dr. Nando Murray MD Work Phone: 4(797)130-720078 [place] [address] 09-18-2024 13:18-0400 Body weight 53.[address] Nando Murray MD Work Phone: 0(756)210-423678 [place] [address] 09-18-2024 13:18-0400 Diastolic blood pressure 105 mm[Hg] Dr. Nando Murray MD Work Phone: 5(642)129-789778 [place] [address] 09-18-2024 13:18-0400 Heart rate 80 /min Dr. Nando Murray MD Work Phone: 5(926)202-697278 [place] [address] 09-18-2024 13:18-0400 Respiratory rate 18 /min Dr. Nando Murray MD Work Phone: 5(412)547-388378 [place] [address] 09-18-2024 13:18-0400 SaO2% (BldA) [Mass fraction] 97 % Dr. Nando Murray MD Work Phone: 5(582)333-065278 [place] [address] 09-18-2024 13:18-0400 Systolic blood pressure 143 mm[Hg] Dr. Nando Murray MD Work Phone: 4(772)028-158778 [place] [address] 09-17-2024 14:18-0400 Body height 157.[address] Nando Murray MD Work Phone: 0(627)954-570378 [place] [address] 09-17-2024 14:17-0400 Body mass index (BMI) [Ratio] 21.2 kg/m2 Dr. Nando Murray MD Work Phone: 3(047)997-721778 [place] [address] 09-17-2024 14:17-0400 Body weight 52.[address] Nando Murray MD Work Phone: 0(434)257-490378 [place] [address] 09-17-2024 14:17-0400 Diastolic blood pressure 72 mm[Hg] Dr. Nando Murray MD Work Phone: 8(911)042-482378 [place] [address] 09-17-2024 14:17-0400 Systolic blood pressure 117 mm[Hg] Dr. Nando Murray MD Work Phone: 0(160)060-973978 [place] [address] 07-03-2024 09:21-0500 Body mass index (BMI) [Ratio] 23.1 kg/m2 Dr. Nando Murray MD Work Phone: 0(064)552-095178 [place] [address] 07-03-2024 09:21-0500 Body weight 57.[address] Nando Murray MD Work Phone: 0(860)639-569678 [place] [address] 07-03-2024 09:21-0500 Diastolic blood pressure 64 mm[Hg] Dr. Nando Murray MD Work Phone: 1(760)525-863778 [place] [address] 07-03-2024 09:21-0500 Heart rate 56 /min Dr. Nando Murray MD Work Phone: 0(435)947-254078 [place] [address] 07-03-2024 09:21-0500 Respiratory rate 20 /min Dr. Nando Murray MD Work Phone: 0(355)525-960278 [place] [address] 07-03-2024 09:21-0500 SaO2% (BldA) [Mass fraction] 92 % Dr. Nando Murray MD Work Phone: 1(515)475-869978 [place] [address] 07-03-2024 09:21-0500 Systolic blood pressure 106 mm[Hg] Dr. Nando Murray MD Work Phone: 0(254)739-143978 [place] [address] 06-26-2024 11:04-0500 Body temperature 97.3 [degF] Dr. Nando Murray MD Work Phone: 9(272)867-736378 [place] [address] 06-26-2024 11:04-0500 Diastolic blood pressure 70 mm[Hg] Dr. Nando Murray MD Work Phone: 6(583)593-143678 [place] [address] 06-26-2024 11:04-0500 Heart rate 64 /min Dr. Nando Murray MD Work Phone: 0(973)291-556078 [place] [address] 06-26-2024 11:04-0500 Respiratory rate 16 /min Dr. Nando Murray MD Work Phone: 2(989)177-460078 [place] [address] 06-26-2024 11:04-0500 SaO2% (BldA) [Mass fraction] 100 % Dr. Nando Murray MD Work Phone: 9(842)869-163578 [place] [address] 06-26-2024 11:04-0500 Systolic blood pressure 105 mm[Hg] Dr. Nando Murray MD Work Phone: 5(046)986-463378 [place] [address] 06-26-2024 09:12-0500 Body mass index (BMI) [Ratio] 22.4 kg/m2 Dr. Nando Murray MD Work Phone: 5(967)867-244378 [place] [address] 06-26-2024 09:12-0500 Body weight 55.[address] Nando Murray MD Work Phone: 5(662)547-573078 [place] [address] 06-07-2024 22:23-0500 Body temperature 97.8 [degF] Dr. Nando Murray MD Work Phone: 6(458)071-367078 [place] [address] 06-07-2024 22:23-0500 Diastolic blood pressure 51 mm[Hg] Dr. Nando Murray MD Work Phone: 3(242)319-870978 [place] [address] 06-07-2024 22:23-0500 Heart rate 75 /min Dr. Nando Murray MD Work Phone: 0(065)479-931678 [place] [address] 06-07-2024 22:23-0500 Respiratory rate 18 /min Dr. Nando Murray MD Work Phone: 8(309)425-077478 [place] [address] 06-07-2024 22:23-0500 SaO2% (BldA) [Mass fraction] 98 % Dr. Nando Murray MD Work Phone: [facility] 06-07-2024 22:23-0500 Systolic blood pressure 119 mm[Hg] Dr. Nando Murray MD Work Phone: [facility] 06-07-2024 20:21-0500 Body mass index (BMI) [Ratio] 23.6 kg/m2 Dr. Nando Murray MD Work Phone: [facility] 06-07-2024 20:21-0500 Body weight 58.[address] Nando Murray MD Work Phone: [facility] 01-24-2024 18:53-0400 Body mass index (BMI) [Ratio] 25.85 kg/m2 Christiana Moomaw MANAGER TRANSPORTATION.MANAGER PROVIDER RELATIONS Work Phone: [facility] 01-24-2024 18:53-0400 Body temperature 97.3 [degF] Christiana Moomaw MANAGER TRANSPORTATION.MANAGER PROVIDER RELATIONS Work Phone: [facility] 01-24-2024 18:53-0400 Body weight 64.1 kg Christiana Moomaw MANAGER TRANSPORTATION.MANAGER PROVIDER RELATIONS Work Phone: [facility] 01-24-2024 18:53-0400 Diastolic blood pressure 63 mm[Hg] Christiana Moomaw MANAGER TRANSPORTATION.MANAGER PROVIDER RELATIONS Work Phone: [facility] 01-24-2024 18:53-0400 Heart rate 55 /min Christiana Moomaw MANAGER TRANSPORTATION.MANAGER PROVIDER RELATIONS Work Phone: [facility] 01-24-2024 18:53-0400 Respiratory rate 18 /min Christiana Moomaw MANAGER TRANSPORTATION.MANAGER PROVIDER RELATIONS Work Phone: [facility] 01-24-2024 18:53-0400 SaO2% (BldA) [Mass fraction] 100 % Christiana Moomaw MANAGER TRANSPORTATION.MANAGER PROVIDER RELATIONS Work Phone: [facility] 01-24-2024 18:53-0400 Systolic blood pressure 108 mm[Hg] Christiana Moomaw MANAGER TRANSPORTATION.MANAGER PROVIDER RELATIONS Work Phone: [facility] 11-01-2023 10:50-0400 Body mass index (BMI) [Ratio] 26.01 kg/m2 Treasure Alejandra MANAGER TRANSPORTATION.MANAGER PROVIDER RELATIONS Work Phone: [facility] 11-01-2023 10:50-0400 Body temperature 97.9 [degF] Treasure Alejandra MANAGER TRANSPORTATION.MANAGER PROVIDER RELATIONS Work Phone: [facility] 11-01-2023 10:50-0400 Body weight 64.5 kg Treasure Alejandra MANAGER TRANSPORTATION.MANAGER PROVIDER RELATIONS Work Phone: [facility] 11-01-2023 10:50-0400 Diastolic blood pressure 66 mm[Hg] Treasure Alejandra MANAGER TRANSPORTATION.MANAGER PROVIDER RELATIONS Work Phone: [facility] 11-01-2023 10:50-0400 Heart rate 68 /min Treasure Alejandra MANAGER TRANSPORTATION.MANAGER PROVIDER RELATIONS Work Phone: [facility] 11-01-2023 10:50-0400 Respiratory rate 16 /min Treasure Alejandra MANAGER TRANSPORTATION.MANAGER PROVIDER RELATIONS Work Phone: [facility] 11-01-2023 10:50-0400 SaO2% (BldA) [Mass fraction] 98 % Treasure Alejandra MANAGER TRANSPORTATION.MANAGER PROVIDER RELATIONS Work Phone: [facility] 11-01-2023 10:50-0400 Systolic blood pressure 120 mm[Hg] Treasure Alejandra MANAGER TRANSPORTATION.MANAGER PROVIDER RELATIONS Work Phone: [facility] 08-17-2023 14:36-0400 Body temperature 97.2 [degF] Britt Praisler-Wood MANAGER TRANSPORTATION.MANAGER PROVIDER RELATIONS Work Phone: [facility] 08-17-2023 14:36-0400 Body weight 67 kg Britt Praisler-Wood MANAGER TRANSPORTATION.MANAGER PROVIDER RELATIONS Work Phone: [facility] 08-17-2023 14:36-0400 Diastolic blood pressure 69 mm[Hg] Britt Praisler-Wood MANAGER TRANSPORTATION.MANAGER PROVIDER RELATIONS Work Phone: [facility] 08-17-2023 14:36-0400 Heart rate 66 /min Britt Praisler-Wood MANAGER TRANSPORTATION.MANAGER PROVIDER RELATIONS Work Phone: [facility] 08-17-2023 14:36-0400 Respiratory rate 18 /min Britt Maza MANAGER TRANSPORTATION.MANAGER PROVIDER RELATIONS Work Phone: [facility] 08-17-2023 14:36-0400 SaO2% (BldA) [Mass fraction] 97 % Britt Maza MANAGER TRANSPORTATION.MANAGER PROVIDER RELATIONS Work Phone: [facility] 08-17-2023 14:36-0400 Systolic blood pressure 103 mm[Hg] Britt Maza MANAGER TRANSPORTATION.MANAGER PROVIDER RELATIONS Work Phone: [facility] 08-16-2023 20:05-0400 Body height 157.48 cm [facility] 08-16-2023 20:05-0400 Body mass index (BMI) [Ratio] 26.6 kg/m2 [facility] 08-16-2023 20:05-0400 Body temperature 96.7 [degF] [facility] 08-16-2023 20:05-0400 Body weight 66.22 kg [facility] 08-16-2023 20:05-0400 Diastolic blood pressure 67 mm[Hg] [facility] 08-16-2023 20:05-0400 Heart rate 65 /min [facility] 08-16-2023 20:05-0400 Respiratory rate 18 /min [facility] 08-16-2023 20:05-0400 SaO2% (BldA) [Mass fraction] 97 % [facility] 08-16-2023 20:05-0400 Systolic blood pressure 101 mm[Hg] [facility] 07-26-2023 13:33-0400 Body temperature 97.59 [degF] [facility] [address] [place] [address] 07-26-2023 13:33-0400 Diastolic blood pressure 55 mm[Hg] [facility] [address] [facility] 07-26-2023 13:33-0400 Heart rate 52 /min [facility] [address] [facility] 07-26-2023 13:33-0400 Respiratory rate 16 /min [facility] [address] [facility] 07-26-2023 13:33-0400 SaO2% (BldA) [Mass fraction] 99 % [facility] 2 [facility] 07-26-2023 13:33-0400 Systolic blood pressure 107 mm[Hg] [facility] [address] [facility] 07-26-2023 12:58-0400 Body height 157.5 cm P. Abimbola DO Work Phone: [facility] 07-26-2023 12:58-0400 Body mass index (BMI) [Ratio] 27.07 kg/m2 P. Abimbola DO Work Phone: [facility] 07-26-2023 12:58-0400 Body temperature 98.1 [degF] P. Abimbola DO Work Phone: [facility] 07-26-2023 12:58-0400 Body weight 67.13 kg P. Abimbola DO Work Phone: [facility] 07-26-2023 12:58-0400 Diastolic blood pressure 75 mm[Hg] P. Abimbola DO Work Phone: [facility] 07-26-2023 12:58-0400 Heart rate 96 /min P. Abimbola DO Work Phone: [facility] 07-26-2023 12:58-0400 SaO2% (BldA) [Mass fraction] 98 % P. Abimbola DO Work Phone: [facility] 07-26-2023 12:58-0400 Systolic blood pressure 104 mm[Hg] P. Abimbola DO [facility] 06-28-2023 13:37-0500 Body temperature 97.9 [degF] [facility] [address] [facility] 06-28-2023 13:37-0500 Diastolic blood pressure 54 mm[Hg] [facility] [address] [facility] 06-28-2023 13:37-0500 Heart rate 73 /min [facility] [address] [facility] 06-28-2023 13:37-0500 Respiratory rate 16 /min [facility] [address] [facility] 06-28-2023 13:37-0500 SaO2% (BldA) [Mass fraction] 98 % [facility] [address] [facility] 06-28-2023 13:37-0500 Systolic blood pressure 106 mm[Hg] [facility] [address] [facility] 06-26-2023 11:40-0500 Body temperature 98.91 [degF] Clau Athy PA-C Work Phone: [facility] 06-26-2023 11:40-0500 Body weight 68.04 kg Clau Athy PA-C Work Phone: [facility] 06-26-2023 11:40-0500 Diastolic blood pressure 72 mm[Hg] Clau Athy PA-C Work Phone: [facility] 06-26-2023 11:40-0500 Heart rate 78 /min Clau Athy PA-C Work Phone: [facility] 06-26-2023 11:40-0500 Respiratory rate 18 /min Clau Athy PA-C Work Phone: [facility] 06-26-2023 11:40-0500 SaO2% (BldA) [Mass fraction] 98 % Clau Athy PA-C Work Phone: [facility] 06-26-2023 11:40-0500 Systolic blood pressure 122 mm[Hg] Clau Athy PA-C Work Phone: [facility] 05-03-2023 13:55-0500 Body temperature 97.59 [degF] [facility] [address] [facility] 05-03-2023 13:55-0500 Diastolic blood pressure 56 mm[Hg] [facility] 3 [facility] 05-03-2023 13:55-0500 Heart rate 74 /min [facility] [address] [facility] 05-03-2023 13:55-0500 Respiratory rate 16 /min [facility] [address] [facility] 05-03-2023 13:55-0500 SaO2% (BldA) [Mass fraction] 97 % [facility] [address] [facility] 05-03-2023 13:55-0500 Systolic blood pressure 108 mm[Hg] [facility] [address] [facility] 04-14-2023 14:11-0500 Body temperature 97.39 [degF] Treasure Alejandra MANAGER TRANSPORTATION.MANAGER PROVIDER RELATIONS Work Phone: [facility] 04-14-2023 14:11-0500 Body weight 69.4 kg Treasure Alejandra MANAGER TRANSPORTATION.MANAGER PROVIDER RELATIONS Work Phone: [facility] 04-14-2023 14:11-0500 Diastolic blood pressure 68 mm[Hg] Treasure Alejandra MANAGER TRANSPORTATION.MANAGER PROVIDER RELATIONS Work Phone: [facility] 04-14-2023 14:11-0500 Heart rate 84 /min Treasure Alejandra MANAGER TRANSPORTATION.MANAGER PROVIDER RELATIONS Work Phone: [facility] 04-14-2023 14:11-0500 Respiratory rate 16 /min Treasure Alejandra MANAGER TRANSPORTATION.MANAGER PROVIDER RELATIONS Work Phone: [facility] 04-14-2023 14:11-0500 SaO2% (BldA) [Mass fraction] 97 % Treasure Alejandra MANAGER TRANSPORTATION.MANAGER PROVIDER RELATIONS Work Phone: [facility] 04-14-2023 14:11-0500 Systolic blood pressure 102 mm[Hg] Treasure Alejandra MANAGER TRANSPORTATION.MANAGER PROVIDER RELATIONS Work Phone: [facility] 04-05-2023 14:30-0500 Body temperature 97.5 [degF] [facility] [address] [facility] 04-05-2023 14:30-0500 Diastolic blood pressure 67 mm[Hg] [facility] 3 [facility] 04-05-2023 14:30-0500 Heart rate 58 /min [facility] 3 [facility] 04-05-2023 14:30-0500 Respiratory rate 16 /min [facility] [address] [place] [address] 04-05-2023 14:30-0500 SaO2% (BldA) [Mass fraction] 98 % [facility] [address] [facility] 04-05-2023 14:30-0500 Systolic blood pressure 102 mm[Hg] [facility] 3 [facility] 03-08-2023 14:15-0400 Body temperature 97.7 [degF] [facility] 3 [facility] 03-08-2023 14:15-0400 Diastolic blood pressure 60 mm[Hg] [facility] 3 [facility] 03-08-2023 14:15-0400 Heart rate 90 /min [facility] 3 [facility] 03-08-2023 14:15-0400 Respiratory rate 16 /min [facility] At[facility] 3 [facility] 03-08-2023 14:15-0400 SaO2% (BldA) [Mass fraction] 96 % [facility] 3 [facility] 03-08-2023 14:15-0400 Systolic blood pressure 108 mm[Hg] [facility] [address] [place] [address] 02-08-2023 14:15-0400 Diastolic blood pressure 51 mm[Hg] [facility] At[facility] In[facility] Chair 3 [facility] 02-08-2023 14:15-0400 Heart rate 55 /min [facility] [address] [place] [address] 02-08-2023 14:15-0400 Respiratory rate 16 /min [facility] [address] [place] [address] 02-08-2023 14:15-0400 SaO2% (BldA) [Mass fraction] 100 % [facility] At[facility] 3 [facility] 02-08-2023 14:15-0400 Systolic blood pressure 99 mm[Hg] [facility] At[facility] In[facility] 3 [facility] 01-29-2023 14:39-0400 Body temperature 97.59 [degF] Aurelio Fulton MD Work Phone: [facility] 01-29-2023 14:39-0400 Body weight 65.32 kg Aurelio Fulton MD Work Phone: [facility] 01-29-2023 14:39-0400 Diastolic blood pressure 60 mm[Hg] Aurelio Fulton MD Work Phone: [facility] 01-29-2023 14:39-0400 Heart rate 78 /min Aurelio Fulton MD Work Phone: [facility] 01-29-2023 14:39-0400 Respiratory rate 16 /min Aurelio Fulton MD Work Phone: [facility] 01-29-2023 14:39-0400 SaO2% (BldA) [Mass fraction] 98 % Aurelio Fulton MD Work Phone: [facility] 01-29-2023 14:39-0400 Systolic blood pressure 102 mm[Hg] Aurelio Fulton MD Work Phone: [facility] 01-11-2023 15:15-0400 Body temperature 98.1 [degF] [facility] [address] [place] [address] 01-11-2023 15:15-0400 Diastolic blood pressure 57 mm[Hg] [facility] [address] [place] [address] 01-11-2023 15:15-0400 Heart rate 55 /min [facility] [address] [place] [address] 01-11-2023 15:15-0400 Respiratory rate 16 /min [facility] [address] [place] [address] 01-11-2023 15:15-0400 SaO2% (BldA) [Mass fraction] 98 % [facility] [address] [place] [address] 01-11-2023 15:15-0400 Systolic blood pressure 101 mm[Hg] [facility] [address] [place] [address] 12-28-2022 13:11-0400 Body temperature 97.2 [degF] Britt Adkins-Juan MANAGER TRANSPORTATION.MANAGER PROVIDER RELATIONS Work Phone: [facility] 12-28-2022 13:11-0400 Body weight 66.68 kg Britt Adkins-Juan MANAGER TRANSPORTATION.MANAGER PROVIDER RELATIONS Work Phone: [facility] 12-28-2022 13:11-0400 Diastolic blood pressure 74 mm[Hg] Britt Adkins-Juan MANAGER TRANSPORTATION.MANAGER PROVIDER RELATIONS Work Phone: [facility] 12-28-2022 13:11-0400 Heart rate 58 /min Britt Pramegaler-Wood MANAGER TRANSPORTATION.MANAGER PROVIDER RELATIONS Work Phone: [facility] 12-28-2022 13:11-0400 Respiratory rate 21 /min Britt Praisler-Wood MANAGER TRANSPORTATION.MANAGER PROVIDER RELATIONS Work Phone: [facility] 12-28-2022 13:11-0400 SaO2% (BldA) [Mass fraction] 100 % Britt Praisler-Wood MANAGER TRANSPORTATION.MANAGER PROVIDER RELATIONS Work Phone: [facility] 12-28-2022 13:11-0400 Systolic blood pressure 110 mm[Hg] Britt Praisler-Wood MANAGER TRANSPORTATION.MANAGER PROVIDER RELATIONS Work Phone: [facility] 12-18-2022 19:30-0400 Body temperature 97.7 [degF] Treasure Alejandra MANAGER TRANSPORTATION.MANAGER PROVIDER RELATIONS Work Phone: [facility] 12-18-2022 19:30-0400 Body weight 67.68 kg Treasure Alejandra MANAGER TRANSPORTATION.MANAGER PROVIDER RELATIONS Work Phone: [facility] 12-18-2022 19:30-0400 Diastolic blood pressure 69 mm[Hg] Treasure Alejandra MANAGER TRANSPORTATION.MANAGER PROVIDER RELATIONS Work Phone: [facility] 12-18-2022 19:30-0400 Heart rate 100 /min Treasure Alejandra MANAGER TRANSPORTATION.MANAGER PROVIDER RELATIONS Work Phone: [facility] 12-18-2022 19:30-0400 Respiratory rate 18 /min Treasure Alejandra MANAGER TRANSPORTATION.MANAGER PROVIDER RELATIONS Work Phone: [facility] 12-18-2022 19:30-0400 SaO2% (BldA) [Mass fraction] 97 % Treasure Alejandra MANAGER TRANSPORTATION.MANAGER PROVIDER RELATIONS Work Phone: [facility] 12-18-2022 19:30-0400 Systolic blood pressure 110 mm[Hg] Treasure Alejandra MANAGER TRANSPORTATION.MANAGER PROVIDER RELATIONS Work Phone: [facility] 12-14-2022 15:05-0400 Body temperature 98.4 [degF] Avb Atul Buc Infusion Chair 3 [facility] 12-14-2022 15:05-0400 Diastolic blood pressure 60 mm[Hg] Avb Atul Buc Infusion Chair 3 [facility] 12-14-2022 15:05-0400 Heart rate 64 /min [facility] Atul Buc Infusion Chair 3 [facility] 12-14-2022 15:05-0400 Respiratory rate 17 /min Av[facility] Atul Buc Infusion Chair 3 [facility] 12-14-2022 15:05-0400 SaO2% (BldA) [Mass fraction] 98 % [facility] Atul Buc Infusion [facility] 3 [facility] 12-14-2022 15:05-0400 Systolic blood pressure 108 mm[Hg] Av[facility] Atul Buc Infusion Chair 3 [facility] 12-11-2022 09:36-0400 Body temperature 98.1 [degF] Aurelio Fulton MD Work Phone: [facility] 12-11-2022 09:36-0400 Body weight 65.95 kg Aurelio Fulton MD Work Phone: [facility] 12-11-2022 09:36-0400 Diastolic blood pressure 64 mm[Hg] Aurelio Fulton MD Work Phone: [facility] 12-11-2022 09:36-0400 Heart rate 89 /min Aurelio Fulton MD Work Phone: [facility] 12-11-2022 09:36-0400 Respiratory rate 18 /min Aurelio Fulton MD Work Phone: [facility] 12-11-2022 09:36-0400 SaO2% (BldA) [Mass fraction] 98 % Aurelio Fulton MD Work Phone: [facility] 12-11-2022 09:36-0400 Systolic blood pressure 108 mm[Hg] Aurelio Fulton MD Work Phone: [facility] 11-17-2022 15:02-0400 Body temperature 98.01 [degF] [facility] Atul Buc Infusion Chair 3 [facility] 11-17-2022 15:02-0400 Diastolic blood pressure 58 mm[Hg] Avb Atul Buc Infusion Chair 3 [facility] 11-17-2022 15:02-0400 Heart rate 67 /min [facility] At[facility] Infusion Chair 3 [facility] 11-17-2022 15:02-0400 Respiratory rate 16 /min [facility] At[facility] Buc Infusion Chair 3 [facility] 11-17-2022 15:02-0400 SaO2% (BldA) [Mass fraction] 97 % [facility] At[facility] In[facility] 3 [facility] 11-17-2022 15:02-0400 Systolic blood pressure 110 mm[Hg] [facility] Atul Buc Infusion Chair 3 [facility] 09-18-2022 13:32-0400 Body temperature 98.91 [degF] Avb Atul Buc Infusion Chair 4 [facility] 09-18-2022 13:32-0400 Diastolic blood pressure 52 mm[Hg] Av[facility] Atul Buc Infusion Chair 4 [facility] 09-18-2022 13:32-0400 Heart rate 63 /min [facility] At[facility] Buc Infusion Chair 4 [facility] 09-18-2022 13:32-0400 Respiratory rate 15 /min [facility] [address] [place] [address] 09-18-2022 13:32-0400 SaO2% (BldA) [Mass fraction] 97 % [facility] At[facility] In[facility] 4 [facility] 09-18-2022 13:32-0400 Systolic blood pressure 108 mm[Hg] [facility] [address] [place] [address] 09-14-2022 13:20-0400 Body temperature 97.81 [degF] Sukhjinder Castano APRN.MANAGER PROVIDER RELATIONS Work Phone: [facility] 09-14-2022 13:20-0400 Body weight 66.41 kg Sukhjinder Castano APRN.MANAGER PROVIDER RELATIONS Work Phone: [facility] 09-14-2022 13:20-0400 Diastolic blood pressure 64 mm[Hg] Sukhjinder Castano MANAGER TRANSPORTATION.MANAGER PROVIDER RELATIONS Work Phone: [facility] 09-14-2022 13:20-0400 Heart rate 66 /min Sukhjinder Castano MANAGER TRANSPORTATION.MANAGER PROVIDER RELATIONS Work Phone: [facility] 09-14-2022 13:20-0400 Respiratory rate 18 /min Sukhjinder Castano MANAGER TRANSPORTATION.MANAGER PROVIDER RELATIONS Work Phone: [facility] 09-14-2022 13:20-0400 SaO2% (BldA) [Mass fraction] 96 % Sukhjinder Castano MANAGER TRANSPORTATION.MANAGER PROVIDER RELATIONS Work Phone: [facility] 09-14-2022 13:20-0400 Systolic blood pressure 106 mm[Hg] Sukhjinder Castano MANAGER TRANSPORTATION.MANAGER PROVIDER RELATIONS Work Phone: [facility] 08-11-2022 12:24-0400 Body temperature 98.49 [degF] Radha Alexis PA-C Work Phone: [facility] 08-11-2022 12:24-0400 Body weight 63.96 kg Radha Alexis PA-C Work Phone: [facility] 08-11-2022 12:24-0400 Diastolic blood pressure 86 mm[Hg] Radha Alexis PA-C Work Phone: [facility] 08-11-2022 12:24-0400 Heart rate 100 /min Radha Alexis PA-C Work Phone: [facility] 08-11-2022 12:24-0400 Respiratory rate 16 /min Radha Alexis PA-C Work Phone: [facility] 08-11-2022 12:24-0400 Systolic blood pressure 120 mm[Hg] Radha Alexis PA-C Work Phone: [facility] 06-07-2022 11:11-0500 Body temperature 97 [degF] Clau Athy PA-C Work Phone: [facility] 06-07-2022 11:11-0500 Body weight 63.05 kg Clau Athy PA-C Work Phone: [facility] 06-07-2022 11:11-0500 Diastolic blood pressure 80 mm[Hg] Clau Athy PA-C Work Phone: [facility] 06-07-2022 11:11-0500 Heart rate 66 /min Clau Athy PA-C Work Phone: [facility] 06-07-2022 11:11-0500 Respiratory rate 18 /min Clau Athy PA-C Work Phone: [facility] 06-07-2022 11:11-0500 SaO2% (BldA) [Mass fraction] 99 % Clau Athy PA-C Work Phone: [facility] 06-07-2022 11:11-0500 Systolic blood pressure 110 mm[Hg] Clau Nicole PA-C Work Phone: [facility] 03-17-2022 11:16-0500 Body height 157.5 cm Gerry Cantu MD Work Phone: [facility] 03-17-2022 11:16-0500 Body temperature 97.81 [degF] Gerry Cantu MD Work Phone: [facility] 03-17-2022 11:16-0500 Body weight 64.32 kg Gerry Cantu MD Work Phone: [facility] 03-17-2022 11:16-0500 Diastolic blood pressure 68 mm[Hg] Gerry Cantu MD Work Phone: [facility] 03-17-2022 11:16-0500 Heart rate 98 /min Gerry Cantu MD Work Phone: [facility] 03-17-2022 11:16-0500 SaO2% (BldA) [Mass fraction] 97 % Gerry Cantu MD Work Phone: [facility] 03-17-2022 11:16-0500 Systolic blood pressure 98 mm[Hg] Gerry Cantu MD Work Phone: [facility] 02-16-2022 10:54-0400 Body height 157.5 cm Gerry Cantu MD Work Phone: [facility] 02-16-2022 10:54-0400 Body temperature 97.7 [degF] Gerry Cantu MD Work Phone: [facility] 02-16-2022 10:54-0400 Body weight 64.41 kg Gerry Cantu MD Work Phone: [facility] 02-16-2022 10:54-0400 Diastolic blood pressure 58 mm[Hg] Gerry Cantu MD Work Phone: [facility] 02-16-2022 10:54-0400 Heart rate 94 /min Gerry Cantu MD Work Phone: [facility] 02-16-2022 10:54-0400 SaO2% (BldA) [Mass fraction] 99 % Gerry Cantu MD Work Phone: [facility] 02-16-2022 10:54-0400 Systolic blood pressure 100 mm[Hg] Gerry Cantu MD Work Phone: [facility] 02-15-2022 13:05-0400 Body weight 64.41 kg Celi Murray MD Work Phone: [facility] 02-15-2022 13:05-0400 Diastolic blood pressure 62 mm[Hg] Celi Murray MD Work Phone: [facility] 02-15-2022 13:05-0400 Heart rate 68 /min Celi Murray MD Work Phone: [facility] 02-15-2022 13:05-0400 Respiratory rate 18 /min Celi Murray MD Work Phone: [facility] 02-15-2022 13:05-0400 SaO2% (BldA) [Mass fraction] 95 % Celi Murray MD Work Phone: [facility] 02-15-2022 13:05-0400 Systolic blood pressure 108 mm[Hg] Celi Murray MD Work Phone: [facility] 10-31-2021 21:23-0400 Diastolic blood pressure 74 mm[Hg] No [facility] Work Phone: 10-31-2021 21:23-0400 Heart rate 78 /min No [facility] Work Phone: 10-31-2021 21:23-0400 Respiratory rate 15 /min No [facility] Work Phone: 10-31-2021 21:23-0400 SaO2% (BldA) [Mass fraction] 98 % No [facility] Work Phone: 10-31-2021 21:23-0400 Systolic blood pressure 113 mm[Hg] No [facility] Work Phone: 10-31-2021 18:48-0400 Body height 157.48 cm No [facility] Work Phone: 10-31-2021 18:48-0400 Body mass index (BMI) [Ratio] 26.8 kg/m2 No [facility] Work Phone: 10-31-2021 18:48-0400 Body temperature 97.3 [degF] No [facility] Work Phone: 10-31-2021 18:48-0400 Body weight 66.6 kg No [facility] Work Phone: 09-24-2021 15:51-0400 Body temperature 97 [degF] No [facility] Work Phone: 09-24-2021 15:51-0400 Diastolic blood pressure 65 mm[Hg] No [facility] Work Phone: 09-24-2021 15:51-0400 Heart rate 91 /min No [facility] Work Phone: 09-24-2021 15:51-0400 Respiratory rate 18 /min No [facility] Work Phone: 09-24-2021 15:51-0400 Systolic blood pressure 110 mm[Hg] No [facility] Work Phone: 09-23-2021 20:10-0400 SaO2% (BldA) [Mass fraction] 98 % No [facility] Work Phone: 09-23-2021 13:42-0400 Body temperature 97.2 [degF] No [facility] Work Phone: 09-23-2021 13:42-0400 Diastolic blood pressure 58 mm[Hg] No [facility] Work Phone: 09-23-2021 13:42-0400 Heart rate 88 /min No [facility] Work Phone: 09-23-2021 13:42-0400 Respiratory rate 14 /min No [facility] Work Phone: 09-23-2021 13:42-0400 SaO2% (BldA) [Mass fraction] 98 % No [facility] Work Phone: 09-23-2021 13:42-0400 Systolic blood pressure 118 mm[Hg] No [facility] Work Phone: 09-21-2021 15:06-0400 Body height 157.48 cm No [facility] Work Phone: 09-21-2021 15:06-0400 Body mass index (BMI) [Ratio] 30.2 kg/m2 No [facility] Work Phone: 09-21-2021 15:06-0400 Body weight 74.9 kg No [facility] Work Phone: 09-20-2021 13:01-0400 Body mass index (BMI) [Ratio] 29.9 kg/m2 No [facility] Work Phone: 09-20-2021 13:01-0400 Body weight 74.38 kg No [facility] Work Phone: 09-20-2021 13:01-0400 Diastolic blood pressure 80 mm[Hg] No [facility] Work Phone: 09-20-2021 13:01-0400 Systolic blood pressure 130 mm[Hg] No [facility] Work Phone: 09-20-2021 13:01-0400 Body mass index (BMI) [Ratio] 29.9 kg/m2 No [facility] Work Phone: 09-20-2021 13:01-0400 Body weight 74.38 kg No [facility] Work Phone: 09-20-2021 13:01-0400 Diastolic blood pressure 80 mm[Hg] No [facility] Work Phone: 09-20-2021 13:01-0400 Systolic blood pressure 130 mm[Hg] No [facility] Work Phone: 09-15-2021 11:41-0400 Body mass index (BMI) [Ratio] 29.9 kg/m2 No [facility] Work Phone: 09-15-2021 11:41-0400 Body weight 74.1 kg No [facility] Work Phone: 09-15-2021 11:41-0400 Diastolic blood pressure 82 mm[Hg] No [facility] Work Phone: 09-15-2021 11:41-0400 Systolic blood pressure 118 mm[Hg] No [facility] Work Phone: 08-18-2021 13:44-0400 Body mass index (BMI) [Ratio] 30.2 kg/m2 No [facility] Work Phone: 08-18-2021 13:44-0400 Body weight 75.06 kg No [facility] Work Phone: 08-18-2021 13:44-0400 Diastolic blood pressure 80 mm[Hg] No [facility] Work Phone: 08-18-2021 13:44-0400 Systolic blood pressure 120 mm[Hg] No [facility] Work Phone: 08-18-2021 13:44-0400 Body mass index (BMI) [Ratio] 30.2 kg/m2 No [facility] Work Phone: 08-18-2021 13:44-0400 Body weight 75.06 kg No [facility] Work Phone: 08-18-2021 13:44-0400 Diastolic blood pressure 80 mm[Hg] No [facility] Work Phone: 08-18-2021 13:44-0400 Systolic blood pressure 120 mm[Hg] No [facility] Work Phone: 07-19-2021 11:05-0400 Body mass index (BMI) [Ratio] 30.2 kg/m2 No [facility] Work Phone: 07-19-2021 11:05-0400 Body weight 74.89 kg No [facility] Work Phone: 07-19-2021 11:05-0400 Diastolic blood pressure 72 mm[Hg] No [facility] Work Phone: 07-19-2021 11:05-0400 Systolic blood pressure 110 mm[Hg] No [facility] Work Phone: 06-29-2021 11:06-0500 Body weight 75.11 kg No [facility] Work Phone: 06-29-2021 10:55-0500 Diastolic blood pressure 60 mm[Hg] No [facility] Work Phone: 06-29-2021 10:55-0500 Systolic blood pressure 108 mm[Hg] No [facility] Work Phone: 06-02-2021 10:28-0500 Body mass index (BMI) [Ratio] 30 kg/m2 No [facility] Work Phone: 06-02-2021 10:28-0500 Body weight 74.5 kg No [facility] Work Phone: 06-02-2021 10:28-0500 Diastolic blood pressure 72 mm[Hg] No [facility] Work Phone: 06-02-2021 10:28-0500 Systolic blood pressure 120 mm[Hg] No [facility] Work Phone: 02-25-2021 09:45-0400 Body height 157.5 cm Cam Hodges III, MD Work Phone: [facility] Work Phone: 02-25-2021 07:53-0400 Body temperature 99.1 [degF] Cam Hodges III, MD Work Phone: [facility] Work Phone: 02-25-2021 07:53-0400 Diastolic blood pressure 68 mm[Hg] Cam Hodges III, MD Work Phone: [facility] Work Phone: 02-25-2021 07:53-0400 Heart rate 78 /min Cam Hodges III, MD Work Phone: [facility] Work Phone: 02-25-2021 07:53-0400 Respiratory rate 16 /min Cam Hodges III, MD Work Phone: [facility] Work Phone: 02-25-2021 07:53-0400 SaO2% (BldA) [Mass fraction] 97 % Cam Hodges III, MD Work Phone: [facility] Work Phone: 02-25-2021 07:53-0400 Systolic blood pressure 122 mm[Hg] Cam Hodges III, MD Work Phone: [facility] Work Phone: 02-24-2021 13:37-0400 Body mass index (BMI) [Ratio] 32.92 kg/m2 Cam Hodges III, MD Work Phone: [facility] Work Phone: 02-24-2021 13:37-0400 Body weight 81.65 kg Cam Hodges III, MD Work Phone: [facility] Work Phone: Encounters Encounter Date Encounter Type Care Provider Facility Start: 12-11-2024 ambulatory Nando Esteban [facility] Start: 11-11-[address] Nando Murray MD Work Phone: -[facility] Start: 11-11-2024 Non-patient / Non-visit Dr. Huey Edward MD -[facility] Start: 11-10-2024 Non-patient / Non-visit Dr. Roman Gunter DO -[facility] Work Phone: Start: 11-10-2024 Evaluation and management of inpatient Dr. 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) Start: 10-30-2024 End: 10-30-2024 ambulatory CELI MURRAY Facility:[facility] Start: 10-24-2024 End: 10-31-2024 ambulatory Heidi Ramirez MD Work Phone: Endocrinology Comment on above: Cat scan Start: 10-24-2024 End: 10-24-2024 Subsequent hospital visit by physician [facility] ([facility]) Work Phone: Cat Scan Comment on above: Thyroglossal duct [facility] [Q89.2] Start: 10-10-2024 End: 10-10-2024 Patient encounter procedure Heidi Ramirez MD Work Phone: Endocrinology Comment on above: 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) Start: 10-10-2024 End: 10-10-2024 ambulatory CELI MURRAY Facility:[facility] Start: 09-30-2024 ambulatory Nando Esteban lity:[facility] Start: 09-26-2024 ambulatory Nando Esteban [facility] Start: 09-25-2024 ambulatory AMANDA PODLOGAR Facility :[facility] Start: 09-23-2024 End: 09-23-2024 ambulatory CELI Lopez [facility] Facility:[facility] Start: 09-22-2024 End: 09-22-2024 Patient encounter procedure Shelby FENTON -[facility] Work Phone: Start: 09-22-2024 End: 09-22-2024 ambulatory Nando Murray Facility:[facility] Start: 09-19-2024 End: 09-19-2024 Telephone encounter Amanda Reyes APRN.MANAGER PROVIDER RELATIONS Work Phone: [facility] Start: 09-19-2024 End: 09-19-2024 Subsequent hospital visit by physician [facility] Work Phone: Radiology Comment on above: Acute right ankle pa in [M25.571] Start: 09-19-2024 End: 09-19-2024 Patient encounter procedure Amanda Reyes APRN.MANAGER PROVIDER RELATIONS Work Phone: [facility] Comment on above: Thyroid nodule (Prim lyla Dx); Weight loss; Acute right ankle pain; Enlarged thyroid; History of hepatitis C; Chronic nausea Start: 09-19-2024 End: 09-19-2024 ambulatory AMANDA PODLOGAR Facility:[facility] Start: 09-18-2024 End: 09-18-2024 Telephone encounter Arline Gates APRN.MANAGER PROVIDER RELATIONS Work Phone: [facility] Comment on above: Lab Orders; Patient Update Start: 09-18-2024 Encounter for gynecological examination (general) (routine) without abnormal findings Shelby Mel[facility]dez [facility] Start: 09-18-2024 End: 09-18-2024 Emergency department patient visit Dr. Nando Murray MD Work Phone: -Emergency Department Work Phone: Start: 09-17-2024 End: 09-17-[address] Nando Murray MD Work Phone: [facility] Work Phone: Start: 09-17-2024 End: 09-17-2024 Patient encounter procedure Shelby FENTON -Laboratory Specimen Work Phone: Start: 09-17-2024 End: 09-17-2024 Patient encounter procedure Shelby FENTON -[facility] Work Phone: Start: 09-17-2024 End: 09-17-2024 Patient encounter status Shelby FENTON [facility] Start: 09-17-2024 End: 09-17-[address] Nando Murray MD Work Phone: [facility] Work Phone: Start: 09-17-2024 End: 09-17-2024 ambulatory Nando Murray Facility:[facility] Start: 09-11-2024 End: 09-11-2024 ambulatory Celi Murray MD Work Phone: [facility] Comment on above: Abdominal Pain Start: 09-10-2024 End: 09-10-2024 Office outpatient visit 15 minutes Evi Kaufman APRN.CNP Work Phone: Telemedicine Comment on above: Viral URI with cough (Primary Dx); Vaginal itching Start: 09-10-2024 End: 09-10-2024 ambulatory CELI MURRAY Facility:[facility] Start: 09-02-2024 ambulatory Nando Esteban lity:[facility] Start: 08-25-2024 ambulatory Nando Esteban lity:[facility] Start: 07-03-2024 End: 07-03-2024 Patient encounter procedure Merline FENOTN -[facility] Work Phone: Start: 07-03-2024 End: 07-03-2024 ambulatory Nando Murray Facility:[facility] Start: 06-26-2024 ambulatory Arik Martinez Facility :[facility] Start: 06-26-2024 Non-patient / Non-visit Arik Martinez DO -[facility] Start: 06-26-2024 End: 06-26-2024 Admission to same day surgery center Arik Martinez DO -Endoscopy Work Phone: Start: 06-26-2024 End: 06-26-2024 ambulatory [facility] Start: 06-07-2024 End: 06-07-2024 Emergency department patient visit Dr. Donavan Rivera DO -Emergency Department Work Phone: Start: 05-24-2024 End: 05-24-2024 ambulatory [facility] Facility:[facility] Start: 05-24-2024 End: 05-24-2024 Telemedicine consultation with patient Alyx Beckwith MANAGER TRANSPORTATION.MANAGER PROVIDER RELATIONS Work Phone: Telemedicine Comment on above: Genital herpes simpl ex, unspecified site (Primary Dx) Start: 04-28-2024 End: 04-28-2024 ambulatory [facility] Start: 04-21-2024 End: 04-21-2024 ambulatory No Primary Care Physician Facility:[facility] Start: 04-17-2024 End: 04-17-2024 Telephone encounter Celi Murray MD Work Phone: [facility] [place] Comment on above: Medication Request Start: 04-08-2024 End: 04-08-2024 ambulatory CELI MURRAY Facility:[facility] Start: 04-08-2024 End: 04-08-2024 Telemedicine consultation with patient Byroncarmela Aneesh MANAGER TRANSPORTATION.MANAGER PROVIDER RELATIONS Work Phone: Telemedicine Comment on above: Bilious vomiting wit h nausea (Primary Dx) Start: 03-18-2024 End: 03-18-2024 ambulatory CELI MURRAY Facility:[facility] Start: 03-18-2024 End: 03-18-2024 Telemedicine consultation with patient Katy Rubio MANAGER TRANSPORTATION.MANAGER PROVIDER RELATIONS Work Phone: Telemedicine Comment on above: Nausea (Primary Dx) Start: 03-03-2024 End: 03-03-2024 ambulatory CELI MURRAY Facility:[facility] Start: 03-03-2024 End: 03-03-2024 Telemedicine consultation with patient Patricia Suggs MANAGER TRANSPORTATION.MANAGER PROVIDER RELATIONS Work Phone: Telemedicine Comment on above: Dental infection (Pr imary Dx); Tooth pain Start: 01-24-2024 End: 01-24-2024 ambulatory CELI MURRAY Facility:[facility] Start: 01-24-2024 End: 01-24-2024 Patient encounter procedure Christiana Alegre MANAGER TRANSPORTATION.MANAGER PROVIDER RELATIONS Work Phone: [facility] Comment on above: Nausea (Primary Dx) Start: 01-05-2024 End: 01-05-2024 Telemedicine consultation with patient Evi Kaufman MANAGER TRANSPORTATION.MANAGER PROVIDER RELATIONS Work Phone: Telemedicine Comment on above: Acute vaginitis (Estella tin Dx) Start: 01-05-2024 End: 01-05-2024 ambulatory CELI MURRAY Facility:[facility] Start: 11-01-2023 ambulatory Celi Murray MD Work Phone: [facility] [place] Comment on above: Vaginal Problem Start: 11-01-2023 Telephone encounter Aurelio Howard MD Work Phone: [facility] Comment on above: Results (BV+) Start: 11-01-2023 End: 11-01-2023 Patient encounter procedure Treasure Alejandra MANAGER TRANSPORTATION.MANAGER PROVIDER RELATIONS Work Phone: [facility] Comment on above: Vaginal discharge (P rimary Dx); Encounter for screening examination for sexually transmitted disease Start: 08-23[facility] Start: 08-18-2023 Telephone encounter Kan BENJAMIN Work Phone: [facility] Comment on above: Results Start: 08-17-2023 End: 08-17-2023 Patient encounter procedure Britt Maza MANAGER TRANSPORTATION.MANAGER PROVIDER RELATIONS Work Phone: [facility] Comment on above: Vaginal discharge (P rimary Dx) Start: 08-16-2023 End: 08-16-2023 [facility] department [facility] Work Phone: Start: 07-26-2023 ambulatory [facility] Start: 07-26-2023 End: 07-26-2023 Office outpatient visit 25 minutes P. Estuardo Daily DO Work Phone: [facility] Comment on above: Opioid dependence in remission (Primary Dx) Start: 07-26-2023 End: 07-26-2023 Clinical Support Encounter PAllan Daily DO Work Phone: [facility] Comment on above: Opioid use disorder, severe, dependence (Primary Dx) Start: 07-24-2023 Telephone encounter Nando Murray MD Work Phone: [facility] Comment on above: Medication Problem Start: 06-28-2023 [facility] Start: 06-28-2023 End: 06-28-2023 Office outpatient visit 25 minutes P. Estuardo Daily DO Work Phone: [facility] Comment on above: Opiate withdrawal (P rimary Dx); Opioid dependence in remission; JESSICA (generalized anxiety disorder) Start: 06-28-2023 End: 06-28-2023 Clinical Support Encounter lAlan Daily DO Work Phone: [facility] Comment on above: Opioid use disorder, severe, dependence (Primary Dx) Start: 06-26-2023 End: 06-26-2023 Patient encounter procedure Clau Nicole PA-C Work Phone: [facility] Comment on above: Recurrent herpes lab ialis (Primary Dx); Screening for STD (sexually transmitted disease) Start: 05-31-2023 [facility] Start: 05-03-2023 ambulatory [facility] Start: 05-03-2023 End: 05-03-2023 Clinical Support Encounter KitAllan Estuardo Daily DO Work Phone: [facility] Comment on above: Opioid use disorder, severe, dependence (Primary Dx) Start: 04-14-2023 End: 04-14-2023 Patient encounter procedure Treasure Alejandra MANAGER TRANSPORTATION.MANAGER PROVIDER RELATIONS Work Phone: [facility] Comment on above: Vaginal discharge (P rimary Dx); Encounter for medication refill Start: 04-05-2023 [facility] Start: 04-05-2023 End: 04-05-2023 Clinical Support Encounter Vinnie Daily DO Work Phone: [facility] Comment on above: Opioid use disorder, severe, dependence (Primary Dx) Start: 03-08-2023 [facility] Start: 03-08-2023 End: 03-08-2023 Clinical Support Encounter Vinnie Daily DO Work Phone: [facility] Comment on above: Opioid use disorder, severe, dependence (Primary Dx) Start: 02-08-2023 [facility] Start: 02-08-2023 End: 02-08-2023 Clinical Support Encounter [facility] 3 [facility] Comment on above: Opioid use disorder, severe, dependence (Primary Dx) Start: 01-29-2023 End: 01-29-2023 Patient encounter procedure Aurelio Fulton MD Work Phone: [facility] Comment on above: Rash (Primary Dx) Start: 01-11-2023 [facility] Start: 01-11-2023 End: 01-11-2023 Clinical Support Encounter Vinnie Daily DO Work Phone: [facility] Comment on above: Opioid use disorder, severe, dependence (Primary Dx) Start: 01-03-2023 Telephone encounter Nando Murray MD Work Phone: [facility] Comment on above: Patient Question Start: 12-28-2022 End: 12-28-2022 Patient encounter procedure Britt Maza APRN.MANAGER PROVIDER RELATIONS Work Phone: [facility] Comment on above: Infected cyst of ski n (Primary Dx) Start: 12-19-2022 Telephone encounter Yelitza Miller MANAGER TRANSPORTATION.MANAGER PROVIDER RELATIONS Work Phone: [facility] Comment on above: Results Start: 12-18-2022 End: 12-18-2022 Patient encounter procedure Treasure Ny MEDEL.MANAGER PROVIDER RELATIONS Work Phone: [facility] Comment on above: Vaginal discharge (P rimary Dx) Start: 12-15-2022 ambulatory [facility] Start: 12-14-2022 ambulatory [facility] Start: 12-14-2022 End: 12-14-2022 Clinical Support Encounter Estuardo [facility] Work Phone: [facility] Comment on above: Opioid use disorder, severe, dependence (Primary Dx) Start: 12-11-2022 End: 12-11-2022 Patient encounter procedure Aurelio Fulton MD Work Phone: [facility] Comment on above: Urinary frequency (P rimary Dx) Start: 11-17-2022 ambulatory [facility] Start: 11-17-2022 End: 11-17-2022 [facility] Work Phone: [facility] Comment on above: Opioid use disorder, severe, dependence (Primary Dx) Start: 11-14-2022 ambulatory [facility] Start: 10-17-2022 ambulatory [facility] Start: 2022 ambulatory [facility] Start: 09-18-2022 ambulatory [facility] Start: 09-18-2022 End: 09-18-2022 Clinical [facility] Work Phone: [facility] Comment on above: Opioid use disorder, severe, dependence (Primary Dx) Start: 09-14-2022 End: 09-14-2022 Patient encounter procedure Sukhjinder Castano APRN.MANAGER PROVIDER RELATIONS Work Phone: [facility] Comment on above: URI, acute (Primary Dx) Start: 09-06-2022 ambulatory Vinnie [facility] Start: 08-11-2022 End: 08-11-2022 Patient encounter procedure Radha Alexis PA-C Work Phone: [facility] [place] Comment on above: Lump of skin (Primar y Dx); Lymphadenopathy; Weight gain; Exposure to sexually transmitted disease (STD) Start: 06-07-2022 End: 06-07-2022 Subsequent hospital visit by physician Xr [facility] [place] Work Phone: Radiology Comment on above: Constipation, unspec ified constipation type [K59.00] Start: 06-07-2022 End: 06-07-2022 Patient encounter procedure Clau Nicole PA-C Work Phone: [facility] Comment on above: Constipation, unspec ified constipation type (Primary Dx) Start: 03-17-2022 End: 03-17-2022 Patient encounter procedure Gerry Cantu MD Work Phone: General Surgery Comment on above: Calculus of gallblad елена without cholecystitis without obstruction (Primary Dx); Chronic active hepatitis (HCC) Start: 03-16-2022 Telephone encounter Gerry Cantu MD Work Phone: General Surgery Comment on above: Patient Question Start: 03-06-2022 End: 03-06-2022 ambulatory GERRY CANTU Facility:[facility] Start: 02-16-2022 Telephone encounter Nando Murray MD Work Phone: [facility] [place] Comment on above: Results Start: 02-16-2022 End: 02-16-2022 Patient encounter procedure Gerry Cantu MD Work Phone: General Surgery Comment on above: Chronic active hepat itis (HCC) (Primary Dx); RUQ pain; Calculus of gallbladder without cholecystitis without obstruction Start: 02-15-2022 End: 02-15-2022 Patient encounter procedure Celi Murray MD Work Phone: [facility] [place] Comment on above: RUQ pain (Primary Dx ); Calculus of gallbladder without cholecystitis without obstruction; Urinary frequency Start: 02-10-2022 End: 02-10-2022 ambulatory [facility] Work Phone: Start: 02-10-2022 End: 02-10-2022 [facility] encounter [facility] Start: 01-30-2022 Patient encounter procedure [facility] Start: 10-31-2021 End: 10-31-2021 Emergency department patient visit No Primary Care Physician [facility] Start: 09-23-2021 Non-patient / Non-visit No Primary Care Physician [facility] Start: 09-22-2021 Non-patient / Non-visit No Primary Care Physician [facility] Start: 09-21-2021 Non-patient / Non-visit No Primary Care Physician [facility] Start: 09-21-2021 End: 09-24-2021 Evaluation and management of inpatient No Primary Care Physician [facility] Start: 09-20-2021 End: 09-20-2021 Patient encounter procedure No Primary Care Physician [facility] Start: 09-15-2021 End: 09-15-2021 Patient encounter procedure No Primary Care Physician [facility], Specimen Start: 09-15-2021 End: 09-15-2021 Patient encounter procedure No Primary Care Physician [facility] Start: 09-11-2021 End: 09-11-2021 Patient encounter procedure Javi Busch APRN.[facility] Work Phone: [facility] Comment on above: Procedure not gayle d out (Primary Dx) Start: 08-18-2021 End: 08-18-2021 Patient encounter procedure No Primary Care Physician [facility] Start: 07-19-2021 End: 07-19-2021 Patient encounter procedure No Primary Care Physician [facility] Start: 06-29-2021 End: 06-29-2021 Patient encounter procedure No Primary Care Phys[facility], Specimen Start: 06-29-2021 End: 06-29-2021 Patient encounter procedure No Primary Care Physician [facility] Start: 06-02-2021 End: 06-02-2021 Patient encounter procedure No Primary Care Physician [facility] Start: 02-24-2021 End: 02-25-2021 Evaluation and management of inpatient Cam Hodges MD Work Phone: [facility] Start: 01-21-2021 Telephone encounter Amanda whalen APRN.MANAGER PROVIDER RELATIONS Work Phone: [facility] [place] Comment on above: Results Start: 01-17-2021 End: 01-17-2021 Emergency department patient visit PHYSICIAN [facility] Start: 01-15-2021 Telephone encounter Amanda whalen APRN.MANAGER PROVIDER RELATIONS Work Phone: [facility] [place] Comment on above: Returning Patient's Call Start: 12-27-2017 Patient encounter Yecenia Ayon [facility]:[id number] Start: 08-30-2017 Patient requested procedure Javi Narayan ROBERSONMANAGER PROVIDER RELATIONS Work Phone: [facility] Work Phone: Procedures Date Procedure Procedure Detail Performing Clinician Start: 11-10-2024 Methadone measuremen t, urine Dr. Nando Murray MD Work Phone: Start: 11-10-2024 X-ray of chest, PA a nd lateral views Dr. Nando Murray MD Work Phone: Start: 11-10-2024 D-dimer assay, quantitative Dr. Nando Murray MD Work Phone: Comment on above: NORMAL D-Dimer level (<0.50) indicates no DVT or PE. Start: 11-10-[address] Nando Murray MD Work Phone: Start: 10-24-2024 Ct soft tissue neck w/contrast material Heidi Ramirez MD Work Phone: Start: 09-22-[address] Kirstin Murray MD Work Phone: Start: 09-19-2024 Radex ankle complete minimum 3 views Amanda Podlogankur MANAGER TRANSPORTATION.MANAGER PROVIDER RELATIONS Work Phone: Start: 09-17-2024 Liquid based cervica l cytology screening Dr. Nando Murray MD Work Phone: Comment on above: NEGATIVE FOR INTRAEP ITHELIAL LESION OR MALIGNANCY. This liquid based Th inPrep(R) pap test was screened withthe use of an image guided system. The HPV DNA reflex c riteria were not met with this specimenresult therefore, no HPV testing was performed.Performed at: [facility] [address] [id number] Director: Ely Bermeo MD, Phone: [phone] Start: 03-08-2023 Albumin serum plasma /whole blood P. Estuardo Abimbola COELHO Work Phone: Start: 12-18-2022 BACTERIAL VAGINOSIS NAAT Treasure Alejandra MANAGER TRANSPORTATION.MANAGER PROVIDER RELATIONS Work Phone: Start: 12-18-2022 Iadna chlamydia trachomatis amplified probe tq Treasuer Alejandra MANAGER TRANSPORTATION.MANAGER PROVIDER RELATIONS Work Phone: Start: 12-11-2022 Urnls dip stick/tabl et rgnt auto w/o microscopy Clau Nicole PA-C Work Phone: Start: 06-07-2022 Radiologic exam abdo men 1 view Clau Nicole PA-C Work Phone: Start: 02-15-2022 Urnls dip stick/tabl et rgnt auto w/o microscopy Celi Murray MD Work Phone: Start: 02-10-2022 Ultrasonography of abdomen Start: 02-10-2022 Ultrasound elastography Start: 09-21-2021 End: 09-21-2021 Viral antigen assay No Primary Care Physician Start: 09-15-2021 Group B Streptococcu s Culture No Primary Care Physician Start: 02-25-2021 Antibody screen Nahum Hodges III, MD Work Phone: Start: 02-25-2021 Blood typing serologic abo Mildred Chance MD Work Phone: Start: 02-25-2021 Comprehensive metabo lic panel Mildred Chance MD Work Phone: Start: 02-25-2021 HIV RAPID 1&2 Mildred sotelo MD Work Phone: Start: 02-25-2021 Iaad ia hepatitis b surface antigen Mildred Chance MD Work Phone: Start: 02-25-2021 RPR REFLEX Mildred simon MD Work Phone: Start: 02-25-2021 RUBELLA IMMUNE Mildred Chance MD Work Phone: Start: 02-24-2021 CANNABINOID, URINE, SCREENING, CRITICAL CARE Mildred Chance MD Work Phone: Start: 02-24-2021 Drug screen class list a Mildred Chance MD Work Phone: Start: 02-24-2021 Drug screen, single Payam Chance MD Work Phone: Start: 02-24-2021 Drug screening buprenorphine Mildred Chance MD Work Phone: Start: 02-24-2021 Iadna multiple organ isms direct probe tq Mildred Chance MD Work Phone: Start: 02-24-2021 MEDICATION ASSISTED TREATMENT PANEL Kaila Paris MD Work Phone: Start: 02-24-2021 Urine test visual color cmprsn meths Kaila Paris MD Work Phone: Group B Streptococcu s Culture No Primary Care Physician H/O: section Status pos t section No Primary Care Physician Comment on above: bb boy Tono- JV H/O: section History of C-sectio n No Primary Care Physician Comment on above: 04/16/18- breech pre sentation, preiovus . 2021 H/O: section Status pos t section [place] AMPOULE EXAMINER-C Viral antigen assay No Prima ry Care Physician Plan of Treatment Date Care Activity Detail Author Start: 09-25-2029 Urine microalbumin profile DTaP,Tdap,Td Vaccine (10 - Td or Tdap) [facility] Start: 03-05-[address] 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] Start: 11-14-2024 End: 11-14-2024 Patient encounter procedure 11/14/2024 12:00 PM EDT Office Visit Endocrinology [address] [place] [address] Heidi Ramirez MD [address] [place] [address] 4 week follow up Endocrinology Comment on above: 4 week follow up Start: 11-11-2024 Notification of physician [facility] Start: 11-11-2024 [facility] Start: 11-11-2024 Provision of activity privileges [facility] Start: 11-11-2024 Pulse taking [facility] Start: 11-11-2024 Taking patient vital signs [facility] Start: 11-11-2024 Wound care [facility] Start: 11-11-2024 [facility] Start: 11-11-2024 Catheterization of left heart [facility] Start: 11-10-2024 Following clinical pathway protocol [facility] Start: 11-10-2024 Ambulation without limitation [facility] Start: 11-10-2024 Assessment of risk of venous thromboembolism [facility] Start: 11-10-2024 Insertion of catheter into peripheral vein [facility] Start: 11-10-2024 Measuring intake and output [facility] Start: 11-10-2024 Oxygen therapy [facility] Start: 11-10-2024 Providing care according to standard [facility] Start: 11-10-2024 Referral to livestock commission agent [facility] Start: 11-10-2024 Tobacco use cessation education [facility] Start: 11-10-2024 [facility] Start: 11-10-2024 Electrocardiographic procedure [facility] Start: 11-10-2024 Verification routine [facility] Start: 11-10-2024 Admission procedure [facility] Start: 11-10-2024 Partial thromboplastin time, activated [facility] Start: 11-10-2024 Prothrombin time [facility] Start: 11-10-2024 Hospital admission, emergency, from emergency room, medical nature [facility] Start: 11-10-2024 [facility] Start: 11-10-2024 [facility] Start: 10-29-2024 End: 10-29-2024 Patient encounter procedure 10/29/2024 8:20 AM EDT Office Visit OB/Gynecology [address] [place] [address] Reinier Hugo MD [address] [place] [address] 2nd opinion cysts on ovaries-was being seen at [place] [facility] Comment on above: 2nd opinion cysts on ovaries-was being s een at [place] Start: 10-24-2024 End: 10-24-2024 Patient encounter procedure 10/24/2024 1:20 PM EDT Appointment Cat Scan [address] [place] [address] 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] Cat Scan Comment on above: 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] Start: 09-25-2024 End: 09-25-2024 Patient encounter procedure 09/25/2024 11:30 AM EDT Appointment Radiology [address] [place] [address] Thyroid nodule [E04.1] Radiology Comment on above: Thyroid nodule [E04.1] Start: 09-23-2024 End: 09-23-2024 Patient encounter procedure 09/23/2024 11:40 AM EDT Office Visit Family [facility] [place] [address] [place] [address] PodlogarAmanda APRN.MANAGER PROVIDER RELATIONS [address] [place] [address] Follow up discussion [facility] [place] Comment on above: Follow up discussion Start: 09-19-2024 End: 12-19-2024 CBC W Auto Differential panel - Blood [facility] Comment on above: Expected: 09/19/2024, Expires: Start: 09-19-2024 End: 12-19-2024 Comprehensive metabolic 2000 panel - Serum or Plasma [facility] Work Phone: Comment on above: Expected: 09/19/2024, Expires: Start: 09-19-2024 End: 12-19-2024 Hepatitis C virus Ab [Presence] in Serum [facility] Comment on above: Expected: 09/19/2024, Expires: Start: 09-19-2024 End: 12-19-2024 HIV 1+2 Ab [Presence] in Serum or Plasma by Immunoassay [facility] Comment on above: Expected: 09/19/2024, Expires: Start: 09-19-2024 End: 12-19-2024 Thyrotropin [Units/volume] in Serum or Plasma [facility] Comment on above: Expected: 09/19/2024, Expires: Start: 09-19-2024 End: 12-19-2024 Thyroxine (T4) free [Mass/volume] in Serum or Plasma [facility] Comment on above: Expected: 09/19/2024, Expires: Start: 09-19-2024 End: 12-19-2024 Triiodothyronine (T3) [Mass/volume] in Serum or Plasma [facility] Comment on above: Expected: 09/19/2024, Expires: Start: 09-17-2024 Liquid based cervical cytology screening [facility] Start: 06-26-2024 Colonoscopy w/biopsy single/multiple COLONOSCOPY AND BIOPSY [facility] Start: 06-26-2024 Egd transoral biopsy single/multiple EGD BIOPSY SINGLE/MULTIPLE [facility] Start: 06-26-2024 Patient discharge [facility] Start: 06-07-2024 [facility] Start: 01-06-2024 Covid-19 Vaccine ( season) Covid-19 Vaccine () [facility] Start: 01-06-2024 Covid-19 Vaccine () Covid-19 Vaccine () [facility] Start: 01-06-2024 Influenza vaccination [facility] Start: 08-16-2023 [facility] Start: 08-16-2023 Chlamydia trachomatis (PCR) Chlamydia trachomatis (PCR) [facility] Start: 08-16-2023 Neisseria gonorrhoeae (PCR) Neisseria gonorrhoeae (PCR) [facility] Start: 07-26-2023 End: 07-26-2023 Clinical Support Encounter 07/26/2023 1:00 PM EDT Clinical Support Encounter [facility] [address] [place] [id number] [facility] Start: 05-31-2023 End: 05-31-2023 Clinical Support Encounter 05/31/2023 1:30 PM EST Clinical Support Encounter [facility] [address] [place] [id number] [facility] Start: 05-03-2023 End: 05-03-2023 Clinical Support Encounter 05/03/2023 2:00 PM EST Clinical Support Encounter [facility] [address] [place] [id number] [facility] Start: 04-05-2023 End: 04-05-2023 Clinical Support Encounter 04/05/2023 2:00 PM EST Clinical Support Encounter [facility] [address] [place] [address] [facility] [facility] Start: 03-08-2023 End: 03-08-2023 Clinical Support Encounter 03/08/2023 2:00 PM EDT Clinical Support Encounter [facility] [address] [place] [address] [facility] Start: 02-08-2023 End: 02-09-2024 Choriogonadotropin ( test) [Presence] in Urine HCG QUALITATIVE, URINE Fluids Routine Opioid use disorder, severe, dependence Expected: 02/08/2023, Expires: 02/09/2024 [facility] Comment on above: Expected: 02/08/2023, Expires: Start: 01-11-2023 End: 01-11-2023 Clinical Support Encounter 01/11/2023 3:00 PM EDT Clinical Support Encounter [facility] [address] [place] [address] [facility] Start: 01-05-2023 COVID-19 VACCINE ( season) COVID-19 VACCINE ( season) [facility] Start: 01-05-2023 Influenza vaccination [facility] Start: 12-14-2022 End: 12-14-2022 Clinical Support Encounter 12/14/2022 3:00 PM EDT Clinical Support Encounter [facility] [address] [place] [address] [facility] Start: 2022 End: 2022 Clinical Support Encounter 2022 Clinical Support Encounter Chemotherapy [facility] Start: 08-11-2022 End: 10-11-2022 CBC W Auto Differential panel - Blood CBC + DIFF Lab Routine Lymphadenopathy Expected: 08/11/2022, Expires: 10/11/2022 [facility] Work Phone: Comment on above: Expected: 08/11/2022, Expires: 3 Start: 08-11-2022 End: 10-11-2022 HIV 1+2 Ab [Presence] in Serum or Plasma by Immunoassay HIV 1 2 COMBO(AG/AB),WITH REFLEX TO DIFFERENTIATION Lab Routine Exposure to sexually transmitted disease (STD) Expected: 08/11/2022, Expires: 10/11/2022 [facility] Work Phone: Comment on above: Expected: 08/11/2022, Expires: 3 Start: 08-11-2022 End: 10-11-2022 SYPHILIS TOTAL W/REFLEX SYPHILIS TOTAL W/REFLEX Lab Routine Exposure to sexually transmitted disease (STD) Expected: 08/11/2022, Expires: 10/11/2022 [facility] Work Phone: Comment on above: Expected: 08/11/2022, Expires: 3 Start: 08-11-2022 End: 10-11-2022 Thyrotropin [Units/volume] in Serum or Plasma TSH BLD Lab Routine Weight gain Expected: 08/11/2022, Expires: 10/11/2022 [facility] Work Phone: Comment on above: Expected: 08/11/2022, Expires: 3 Start: 02-16-2022 End: 04-18-2022 Hepatitis C virus RNA [Units/volume] (viral load) in Serum or Plasma by ITA with probe detection [facility] Work Phone: Comment on above: Expected: 02/16/2022, Expires: 2 Start: 02-15-2022 End: 04-17-2022 CBC W Auto Differential panel - Blood [facility] Work Phone: Comment on above: Expected: 02/15/2022, Expires: 2 Start: 02-15-2022 End: 04-17-2022 Comprehensive metabolic 2000 panel - Serum or Plasma [facility] Work Phone: Comment on above: Expected: 02/15/2022, Expires: 2 Start: 02-15-2022 End: 04-17-2022 Lipase [Enzymatic activity/volume] in Serum or Plasma [facility] Work Phone: Comment on above: Expected: 02/15/2022, Expires: 2 Start: 01-05-2022 Influenza vaccination [facility] Start: 09-24-2021 [facility] Work Phone: Start: 09-22-2021 End: 09-23-2021 [facility] Work Phone: Start: 09-22-2021 Application of abdominal corset [facility] Work Phone: Start: 09-21-2021 Notification of physician [facility] Work Phone: Start: 09-21-2021 Post-anesthesia assessment [facility] Work Phone: Start: 09-21-2021 [facility] Work Phone: Start: 09-21-2021 Referral to service [facility] Work Phone: Start: 09-21-2021 Administration of medication [facility] Work Phone: Start: 09-21-2021 Ambulation therapy management [facility] Work Phone: Start: 09-21-2021 Application of device [facility] Work Phone: Start: 09-21-2021 Application of intermittent pneumatic compression device [facility] Work Phone: Start: 09-21-2021 Assessment of risk of venous thromboembolism [facility] Work Phone: Start: 09-21-2021 Catheterization of vein [facility] Work Phone: Start: 09-21-2021 Deep breathing and coughing exercises [facility] Work Phone: Start: 09-21-2021 Exercises [facility] Work Phone: Start: 09-21-2021 Incentive spirometry [facility] Work Phone: Start: 09-21-2021 Measuring intake and output [facility] Work Phone: Start: 09-21-2021 Notification of physician [facility] Work Phone: Start: 09-21-2021 Procedure discontinued [facility] Work Phone: Start: 09-21-2021 Provision of activity privileges [facility] Work Phone: Start: 09-21-2021 Vital signs measurements [facility] Work Phone: Start: 09-21-2021 Wound care [facility] Work Phone: Start: 09-21-2021 [facility] Work Phone: Start: 09-21-2021 Application of abdominal corset [facility] Work Phone: Start: 09-21-2021 section Repeat (Not Applicable) [facility] Work Phone: Start: 09-21-2021 Admission procedure [facility] Work Phone: Start: 09-21-2021 Consultation [facility] Work Phone: Start: 01-05-2021 Influenza vaccination Flu vaccine (#1) [facility] Work Phone: Start: 09-13-2020 PAP TESTING PAP TESTING [facility] Start: 09-13-2020 Screening for malignant neoplasm of cervix [facility] Start: 10-15-2016 Screening for malignant neoplasm of cervix CERVICAL CANCER SCREENING [facility] Start: 10-15-2014 HEPATITIS A (1 of 2 - Risk 2-dose series) HEPATITIS A (1 of 2 - Risk 2-dose series) [facility] Start: 10-15-2014 Hepatitis A Vaccine (1 of 2 - Risk 2-dose series) Hepatitis A Vaccine (1 of 2 - Risk 2-dose series) [facility] Start: 10-15-2014 ONE PNEUMOVAX PRIOR TO AGE 65 ONE PNEUMOVAX PRIOR TO AGE 65 [facility] Start: 10-15-2014 Pneumococcal vaccination Pneumococcal Vaccine (1 of 2 - PCV) [facility] Start: 2011 Screening for Chlamydia trachomatis CHLAMYDIA SCREEN [facility] Start: 10-15-2010 HIV screening HIV SCREENING DISCUSSION [facility] Start: 10-15-2009 PEDS TO ADULT TRANSITION ANNUAL ASSESSMENT PEDS TO ADULT TRANSITION ANNUAL ASSESSMENT [facility] Start: 2007 COVID-19 Vaccine (1) COVID-19 Vaccine (1) [facility] Work Phone: Start: 2007 PEDS TO ADULT TRANSITION INITIAL DISCUSSION PEDS TO ADULT TRANSITION INITIAL DISCUSSION [facility] Start: 10-15-2006 HPV VACCINE (1 - 2-dose series) HPV VACCINE (1 - 2-dose series) [facility] Start: 10-15-2006 Vaccination for human papillomavirus HPV VACCINE ADOL (1 - 2-dose series) [facility] Start: 10-15-2001 PNEUMOCOCCAL (1 - PCV) PNEUMOCOCCAL (1 - PCV) [facility] Start: 10-15-2001 [facility] Start: 10-15-2001 PNEUMOCOCCAL VACCINE SERIES (1 - PCV) PNEUMOCOCCAL VACCINE SERIES (1 - PCV) [facility] Start: 10-15-2001 PNEUMOCOCCAL VACCINE SERIES (1 of 2 - PCV) PNEUMOCOCCAL VACCINE SERIES (1 of 2 - PCV) [facility] Start: 10-15-2000 COVID-19 VACCINE (1) COVID-19 VACCINE (1) [facility] Start: 10-15-1996 HEPATITIS A (1 of 2 - Risk 2-dose series) HEPATITIS A (1 of 2 - Risk 2-dose series) [facility] Start: 04-16-1996 COVID-19 VACCINE (#1) COVID-19 VACCINE (#1) [facility] Start: 1995 Hepatitis C screening HEPATITIS C VIRUS SCREENING [facility] Start: 1995 Screening for Chlamydia trachomatis GONORRHEA SCREEN [facility] End: 02-25-2021 Add On Lab Test Add On Lab Test Lab Routine One Time for 1 Occurrences starting 02/25/2021 until 02/25/2021 [facility] Work Phone: Comment on above: One Time for 1 Occurrences starting 02/05 until 02/25/2021 Bacteria identified in Urine by Culture URINE CULTURE Microbiology Routine Urinary frequency 12/11/2022 9:49 AM EDT [facility] Work Phone: BACTERIAL VAGINOSIS NAAT BACTERI AL VAGINOSIS NAAT Lab Routine Vaginal discharge Ordered: 04/14/2023 [facility] Work Phone: Comment on above: Ordered: 04/14/2023 BACTERIAL VAGINOSIS NAAT BACTERI AL VAGINOSIS NAAT Lab Routine Screening for STD (sexually transmitted disease) 06/26/2023 12:09 PM EST [facility] Work Phone: BACTERIAL VAGINOSIS NAAT BACTERI AL VAGINOSIS NAAT Lab Routine Vaginal discharge 08/17/2023 2:49 PM EDT [facility] Work Phone: BACTERIAL VAGINOSIS NAAT BACTERI AL VAGINOSIS NAAT Lab Routine Vaginal discharge Ordered: 11/01/2023 [facility] Comment on above: Ordered: 11/01/2023 End: 01-21-2022 Basic metabolic 2000 panel - Serum or Plasma BASIC METABOLIC PNL Lab Routine Hyponatremia 1 Occurrences starting 01/21/2021 until 01/21/2022 [facility] Work Phone: Comment on above: 1 Occurrences starting 01/21/2021 until 01/21/2022 GABRIELA/TRICHOMONAS NAAT GABRIELA /TRICHOMONAS NAAT Lab Routine Vaginal discharge Ordered: 04/14/2023 [facility] Work Phone: Comment on above: Ordered: 04/14/2023 GABRIELA/TRICHOMONAS NAAT GABRIELA /TRICHOMONAS NAAT Lab Routine Screening for STD (sexually transmitted disease) 06/26/2023 12:09 PM EST [facility] Work Phone: GABRIELA/TRICHOMONAS NAAT GABRIELA /TRICHOMONAS NAAT Lab Routine Vaginal discharge 08/17/2023 2:49 PM EDT [facility] Work Phone: GABRIELA/TRICHOMONAS NAAT GABRIELA /TRICHOMONAS NAAT Lab Routine Vaginal discharge Ordered: 11/01/2023 [facility] Work Phone: Comment on above: Ordered: 11/01/2023 Chlamydia trachomatis [facility] Chlamydia trachomatis+Neisseria gonorrhoeae DNA [Presence] in Unspecified specimen by ITA with probe detection GONORRHEA/CHLAMYDIA NAAT Lab Routine Vaginal discharge Ordered: 04/14/2023 [facility] Work Phone: Comment on above: Ordered: 04/14/2023 Chlamydia trachomatis+Neisseria gonorrhoeae DNA [Presence] in Unspecified specimen by ITA with probe detection GONORRHEA/CHLAMYDIA NAAT Lab Routine Screening for STD (sexually transmitted disease) 06/26/2023 12:09 PM EST [facility] Work Phone: Chlamydia trachomatis+Neisseria gonorrhoeae DNA [Presence] in Unspecified specimen by ITA with probe detection GONORRHEA/CHLAMYDIA NAAT Lab Routine Vaginal discharge 08/17/2023 2:49 PM EDT [facility] Work Phone: Chlamydia trachomatis+Neisseria gonorrhoeae DNA [Presence] in Unspecified specimen by ITA with probe detection GONORRHEA/CHLAMYDIA NAAT Lab Routine Vaginal discharge Ordered: 11/01/2023 [facility] Comment on above: Ordered: 11/01/2023 End: 11-09-2025 CT Neck W contrast IV CT NECK SOFT TISSUE W IVCON Radiology Routine Thyroglossal duct cyst 1 Occurrences starting 10/10/2024 until 11/09/2025 [facility] Work Phone: Comment on above: 1 Occurrences starting 10/10/2024 until 11/09/2025 End: 02-25-2021 Culture, Urine [facility] Work Phone: Comment on above: One Time for 1 Occurrences starting 02/05 until 02/25/2021 Once for 1 Occurrenc es starting 02/25/2021 until 02/25/2021 Culture, Urine Culture, Urine Microbiology Routine 02/24/2021 5:22 PM EDT [facility] Work Phone: Biophysical pr ofile panel [facility] Work Phone: End: 02-24-2021 HEP C RNA, QUANT (VIRAL LOAD) HEP C RNA, QUANT (VIRAL LOAD) Lab STAT One Time for 1 Occurrences starting 02/24/2021 until 02/24/2021 [facility] Work Phone: Comment on above: One Time for 1 Occurrences starting 02/05 until 02/24/2021 HEP C RNA, QUANT ( RAL LOAD) HEP C RNA, QUANT (VIRAL LOAD) Lab STAT 02/25/2021 12:52 AM EDT [id number] Work Phone: End: 01-21-2022 Hepatitis C virus genotype [Identifier] in Serum or Plasma by ITA with probe detection HEPATITIS C GENOTYPE Lab Routine Positive hepatitis C antibody test 1 Occurrences starting 01/21/2021 until 01/21/2022 [facility] Work Phone: Comment on above: 1 Occurrences starting 01/21/2021 until 01/21/2022 Influenza virus A an d B RNA and SARS-CoV-2 (COVID-19) N gene panel - Respiratory specimen by ITA with probe detection COVID WITH FLUA+B, ROUTINE Microbiology Routine URI, acute 09/14/2022 1:41 PM EDT [facility] Work Phone: INR in Blood by Coag ulation assay [facility] Liquid based cervica l cytology screening [facility] Neisseria gonorrhoea e DNA [Presence] in Genital specimen by ITA with probe detection [facility] Nonrebreather mask oxygen Nonreb reather mask oxygen Respiratory Care Routine As directed - RT (PRN) until discontinued starting 02/24/2021 [id number] Work Phone: Comment on above: As directed - RT (PRN) until discontinue d starting 02/24/2021 Path report.final Dx Spec [facility] Patient Education [facility] Work Phone: Patient referral [facility] Work Phone: POCT ALERE DRUG SCREEN POCT ALER E DRUG SCREEN Point of Care Testing Routine Opioid dependence in remission 07/26/2023 1:[address] [facility] End: 02-24-2021 Trichomonas Vaginali, Molecular Trichomonas Vaginali, Molecular Microbiology STAT One Time for 1 Occurrences starting 02/24/2021 until 02/24/2021 [facility] Work Phone: Comment on above: One Time for 1 Occurrences starting 02/05 until 02/24/2021 Trichomonas Vaginali , Molecular Trichomonas Vaginali, Molecular Microbiology STAT 02/24/2021 2:45 PM EDT [facility] Work Phone: TYPE AND SCREEN TYPE AND SCREEN Blood Bank STAT Every Third Day until discontinued starting 02/24/2021, 1 completed [facility] Work Phone: Comment on above: Every Third Day until discontinued start ing 02/24/2021, 1 completed UA DIP, URINE (POC) UA DIP, URIN E (POC) Lab Routine Urinary frequency Ordered: 02/15/2022 [facility] Work Phone: Comment on above: Ordered: 02/15/2022 End: 09-10-2023 Us chest real time w/image documentation US CHEST WALL/SOFT TISSUE Radiology Routine Lump of skin 1 Occurrences starting 08/11/2022 until 09/10/2023 [facility] Work Phone: Comment on above: 1 Occurrences starting 08/11/2022 until 09/10/2023 End: 02-24-2021 US OB LESS THAN 14 WEEKS SINGLE OR FIRST GESTATION US OB LESS THAN 14 WEEKS SINGLE OR FIRST GESTATION Imaging Routine Once for 1 Occurrences starting 02/24/2021 until 02/24/2021 [facility] Work Phone: Comment on above: Once for 1 Occurrences starting 02/25/20 until 02/24/2021 US OB LESS THAN 14 W EEKS SINGLE OR FIRST GESTATION US OB LESS THAN 14 WEEKS SINGLE OR FIRST GESTATION Imaging Routine 02/25/2021 9:02 AM EDT [facility] Work Phone: US Pelvis [facility] End: 10-19-2025 US Thyroid gland US THYROID/PARATHYROID Radiology STAT Thyroid nodule Enlarged thyroid 1 Occurrences starting 09/19/2024 until 10/19/2025 [facility] Comment on above: 1 Occurrences starting 09/19/2024 until 10/19/2025 [facility] Immunizations Immunization Date Immunization Notes Care Provider Fa cility 09-26-2019 tetanus toxoid, reduced diphtheria toxoid, and acellular pertussis vaccine, adsorbed No Primary Care Physician [facility] 03-05-2018 tetanus toxoid, reduced diphtheria toxoid, and acellular pertussis vaccine, adsorbed Javi Pendlebury MANAGER TRANSPORTATION.MANAGER PROVIDER RELATIONS Work Phone: [facility] 03-23-2017 influenza virus vaccine, unspecified formulation Aurelio Fulton MD Work Phone: [facility] 02-17-2015 measles, mumps and rubella virus vaccine No Primary Care Physician [facility] 02-05-2015 influenza, injectabl e, quadrivalent, contains preservative Javi Pendlebury MANAGER TRANSPORTATION.MANAGER PROVIDER RELATIONS Work Phone: [facility] 02-05-2015 influenza virus vaccine, unspecified formulation [facility] [address] [facility] 12-07-2014 tetanus toxoid, reduced diphtheria toxoid, and acellular pertussis vaccine, adsorbed Javi Pendlebury MANAGER TRANSPORTATION.MANAGER PROVIDER RELATIONS Work Phone: [facility] Work Phone: 03-10-2009 Meningococcal, MCV4, unspecified conjugate formulation(groups A, C, Y and W-135) Javi Pendlebury MANAGER TRANSPORTATION.MANAGER PROVIDER RELATIONS Work Phone: [facility] Work Phone: 03-10-2009 tetanus toxoid, reduced diphtheria toxoid, and acellular pertussis vaccine, adsorbed Javi Pendlebury MANAGER TRANSPORTATION.MANAGER PROVIDER RELATIONS Work Phone: [facility] Work Phone: 06-06-2000 diphtheria, tetanus toxoids and acellular pertussis vaccine Javi Pendlebury MANAGER TRANSPORTATION.MANAGER PROVIDER RELATIONS Work Phone: [facility] 06-06-2000 measles, mumps and rubella virus vaccine Javi Pendlebury MANAGER TRANSPORTATION.MANAGER PROVIDER RELATIONS Work Phone: [facility] 06-06-2000 trivalent poliovirus vaccine, live, oral Javi Pendlebury MANAGER TRANSPORTATION.MANAGER PROVIDER RELATIONS Work Phone: [facility] Work Phone: 04-09-1997 diphtheria, tetanus toxoids and acellular pertussis vaccine Javi Pendlebury MANAGER TRANSPORTATION.MANAGER PROVIDER RELATIONS Work Phone: [facility] 04-09-1997 trivalent poliovirus vaccine, live, oral Javi Pendlebury MANAGER TRANSPORTATION.MANAGER PROVIDER RELATIONS Work Phone: [facility] Work Phone: 01-08-1997 haemophilus influenz ae type b vaccine, PRP-D conjugate [facility].MANAGER PROVIDER RELATIONS Work Phone: [facility] Work Phone: 01-08-1997 measles, mumps and rubella virus vaccine Javi Pendlebury MANAGER TRANSPORTATION.MANAGER PROVIDER RELATIONS Work Phone: [facility] 04-14-1996 DTP-Haemophilus influenzae type b conjugate vaccine [facility] MA[facility]GER TRANSPORTATION.[facility] Work Phone: [facility] Work Phone: 04-14-1996 hepatitis B vaccine, pediatric or pediatric/adolescent dosage Javi Pendlebury MANAGER TRANSPORTATION.MANAGER PROVIDER RELATIONS Work Phone: [facility] 04-14-1996 trivalent poliovirus vaccine, live, oral Javi Pendlebury MANAGER TRANSPORTATION.MANAGER PROVIDER RELATIONS Work Phone: [facility] Work Phone: 02-18-1996 DTP-Haemophilus influenzae type b conjugate vaccine Javi Pendbury MANAGER TRANSPORTATION.[facility] Work Phone: [facility] Work Phone: 02-18-1996 trivalent poliovirus vaccine, live, oral Javi Pendlebury MANAGER TRANSPORTATION.[facility] Work Phone: [facility] Work Phone: 1995 DTP-Haemophilus influenzae type b conjugate vaccine [facility] MA[facility]SPORTATION.MANAGER PROVIDER RELATIONS Work Phone: [facility] Work Phone: 1995 hepatitis B vaccine, pediatric or pediatric/adolescent dosage Javi Pendlebury MANAGER TRANSPORTATION.MANAGER PROVIDER RELATIONS Work Phone: [facility] 1995 trivalent poliovirus vaccine, live, oral Javi Pendlebury MANAGER TRANSPORTATION.MANAGER PROVIDER RELATIONS Work Phone: [facility] Work Phone: 1995 hepatitis B vaccine, pediatric or pediatric/adolescent dosage Javi Busch APRN.MANAGER PROVIDER RELATIONS Work Phone: [facility] Payers Date Payer Category Payer Self-pay [id number] 2022 Medicaid [id number] 2022 Unknown [employer] [id number] 2022-Present [address] [place] [address] [id number] 2019 Medicaid [employer] [id number] 2019-Present [phone] [address] [place] [address] Medicaid [id number]. [id number] 2019 Medicaid [id number]. [id number]. [id number] 2019 Unknown [id number] 2016 Unknown [id number] 1995 Unknown [id number] 2.84.1.935754.3.579.2.902 1995 Unknown [id number] 2.840.1.311610.3.579.2.983 1995 Unknown [id number] 2.840.1.094424.3.579.2.983 1995 Unknown [id number] 2.0.1.895846.3.579.2.983 1995 Unknown [id number] 2.840.1.839425.3.579.2.983 1995 Unknown [id number] 2.16.840.1.758375.3.579.2.983 1995 Unknown [id number] 2.16.840.1.860652.3.579.2. 1995 Unknown [id number] 2.16.840.1.021436.3.579.2. 1995 Unknown [id number] 2.16.840.1.052221.3.579.2. 1995 Unknown [id number] 2.16.840.1.467810.3.579.2. 1995 Unknown [id number] 2.16.840.1.711201.3.579.2. 1995 Unknown [id number] 2.16.840.1.723550.3.579.2. 1995 Unknown [id number] 2.16.840.1.425956.3.579.2. 1995 Unknown [id number] 2.16.840.1.561796.3.579.2. 1995 Unknown [id number] 2.16.840.1.384908.3.579.2. 1995 Unknown [id number] 2.16.840.1.034582.3.579.2. 1995 Unknown [id number] 2.16.840.1.014098.3.579.2. 1995 Unknown [id number] 2.16.840.1.717172.3.579.2. 1995 Unknown [id number] 2.16.840.1.380531.3.579.2. 1995 Unknown [id number] 2.16.840.1.333837.3.579.2. 1995 Unknown [id number] 2.16.840.1.234621.3.579.2. 1995 Unknown [id number] 2.16.840.1.764379.3.579.2.983 1995 Unknown [id number] 2.16.840.1.721456.3.579.2. 1995 Unknown [id number] 2.16.840.1.719477.3.579.2. 1995 Unknown [id number] 2.16.840.1.673604.3.579.2. 1995 Unknown [id number] 2.16.840.1.447169.3.579.2.98 1995 Unknown [id number] 2.16.840.1.708765.3.579.2. 1995 Unknown [id number] 2.16.840.1.191508.3.579.2. 1995 Unknown [id number] 2.16.840.1.486709.3.579.2. 1995 Unknown [id number] 2.16.840.1.076005.3.579.2.98 1995 Unknown [id number] 2.16.840.1.648996.3.579.2. 1995 Unknown [id number] 2.16.840.1.382404.3.579.2. 1995 Unknown [id number] 2.16.840.1.899518.3.579.2. 1995 Unknown [id number] 2.16.840.1.752727.3.579.2.98 1995 Unknown [id number] 2.16.840.1.392310.3.579.2.983 Unknown [id number] 2.16.840.1.376281.3.579.2.462 Unknown [id number] 2.16.840.1.200787.3.579.2.462 Unknown [id number] 2.16.840.1.795949.3.579.2.462 Unknown [id number] 2.16.840.1.821822.3.579.2.462 Unknown [id number] 2.16.840.1.691534.3.579.2.462 Unknown [id number] 2.16.840.1.810326.3.579.2.462 Unknown [id number] 2.16.840.1.803823.3.579.2.462 Unknown [id number] 2.16.840.1.552285.3.579.2.462 Unknown [id number] 2.16.840.1.980888.3.579.2.462 Unknown [id number] 2.16.840.1.887804.3.579.2.462 Unknown [id number] 2.16.840.1.899003.3.579.2.462 Unknown [id number] 2.16.840.1.233010.3.579.2.462 Unknown [id number] 2.16.840.1.590025.3.579.2.462 Unknown [id number] 2.16.840.1.893654.3.579.2.462 Unknown [id number] 2.16.840.1.386256.3.579.2.462 Social History Date Type Detail Facility Assertion Unknown if ever smoked [facility] Work Phone: Start: 02-25-2021 End: 11-10-2024 Tobacco smoking status NHIS Current every day smoker [facility] Start: 02-25-2021 End: 09-22-2024 Cigarettes smoked current (pack per day) - Reported [facility] Start: 02-25-2021 End: 01-24-2024 Tobacco use and exposure Never used [email or web address] Phone: Start: 02-25-2021 Alcohol intake Ex-drinker (finding) [email or web address] Phone: Start: 01-03-2021 [facility] Work Phone: Start: 1995 Sex Assigned At Not on file [facility] Work Phone: Start: 01-01-2021 End: 03-17-2022 Exposure to SARS-CoV-2 (event) Not sure [facility] Start: 03-17-2010 History of tobacco use Cigarette Smo ker [facility] Start: 09-11-2021 End: 10-10-2024 Alcohol intake Current [facility] [facility] Start: 09-21-2021 End: 10-31-2021 Tobacco smoking status NHIS Unknown if ever smoked [facility] Start: 09-26-2019 Heavy [facility] Start: 09-26-2019 Heroin [facility] Start: 09-26-2019 Alone [place] [facility] Start: 09-26-2019 Cigarettes [facility] Start: 1995 Sex Assigned At Female [facility] Start: 09-06-2022 Tobacco use and exposure User of smokeless tobacco [facility] Start: 10-17-2022 End: 09-22-2024 Tobacco use panel [facility] Adult Depression Screening Assessment 0 [facility] Has the [employer], [employer], or 3yy game platform threatened to shut off services in your home in past 12Mo No [facility] Do you belong to any clubs or organizations such as christianity groups, unions, fraternal or athletic groups, or school groups? Yes [facility] Are you now , , , , never or living with a partner? [facility] How often to you hav e a drink containing alcohol? Never [facility] Do you feel stress - tense, restless, nervous, or anxious, or unable to sleep at night because your mind is troubled all the time - these days [OSQ] Only a little [facility] (I/We) worried wheth er (my/our) food would run out before (I/we) got money to buy more. Never true [facility] NEGATED: Highlighted row Not [facility] Goals Date Patient Goal Desired Activity /State Functional Status Date Assessment Result Facility 11-11-2024 Functional status [facility] Work Phone: 12-07-2014 Are you deaf, or do you have serious difficulty hearing Yes 12/07/2014 11:05 AM Jana Rae Ma [facility] 12-07-2014 Are you blind, or do you have serious difficulty seeing, even when wearing glasses No 12/07/2014 11:05 AM Jana Rae Ma No [facility] 12-07-2014 Do you have serious difficulty walking or climbing stairs No 12/07/2014 11:05 AM Jana Rae Ma No [facility] 12-07-2014 Do you have difficul ty dressing or bathing No 12/07/2014 11:05 AM Jana Rae Ma [facility] 12-07-2014 Because of a physica l, mental, or emotional condition, do you have difficulty doing errands alone such as visiting a physician's office or shopping No 12/07/2014 11:05 AM Jnaa Rae Ma No [facility] NEGATED: Highlighted row Functional performance Functional status health issues are not documented [facility] Work Phone: Mental Status Date Assessment Result Facility 11-10-2024 Cognitive function Voice[facility]Name [facility] Work Phone: 11-10-2024 Cognitive function Level Of Cons ciousness Awake;Alert;Appropriate ;Follows [facility] Work Phone: 06-26-2024 Cognitive function Voice/Name [facility] Work Phone: 09-22-2021 Cognitive function Level Of Cons ciousness Awake;Alert;Appropriate [facility] Work Phone: 12-07-2014 Because of a physical, mental, or emotional condition, do you have serious difficulty concentrating, remembering, or making decisions No 12/07/2014 11:05 AM Jana Rae Ma No [facility] NEGATED: Highlighted row Cognitive function [Interpretation] Cognitive status health issues are not documented [facility] Work Phone: Clinical Notes 03-26-2018 to 11-10-2024 Telephone Encounter - Shikha Willingham RN - 10/31/2024 7:36 AM EDTTelephone Encounter - Shikha Willingham RN - 10/31/2024 7:36 AM EDTTelephone Encounter - Jyotsna Jara MA - 10/29/2024 9:13 AM EDT Note Date & Type Note Facility 11-10-2024 History and physi tosin note [facility] 11-10-2024 Radiology Diagnostic study note [facility] [address] [place], [place] [address] Chest PA and Lateral MR#: [id number] Acct: [id number] Name: REJI LORENZO Rep #: [id number] : 1995 F 29 From: John Sylvester MD PCP: Dr. Nando Murray MD Status: REG ER Study:Chest PA and Lateral Date of Exam: 11/10/24 Exam# [id number] Ordering Dr: Adiel Villa DO PROCEDURE: CHEST PA AND LATERAL 11/10/2024 REASON FOR EXAM: CHEST PAIN TECHNIQUE: CHEST PA AND LATERAL COMPARISON: None FINDINGS: Hardware: None Heart: The heart size is normal. Mediastinum: The mediastinal contour is unremarkable. Lungs: The lungs are clear. Bones: The bones are unremarkable. RAD/Chest PA and Lateral IMPRESSION: NEGATIVE CHEST Reading Location: [place] [address] CC: Dr. Adiel Silva DO; Dr. Nando Murray MD ~ Kettle Coordinator: Signed [facility] 10-31-2024 Telephone encounter Note Patient seen in visit 10/30/2024 as scheduled. Closing this encounter. Huma Willingham RN [facility] 10-31-2024 Miscellaneous Notes Patient seen in visit 10/30/2024 as scheduled. Closing this encounter. Huma Willingham RN Patient called in asking for results as she has not heard anything back. Please advise. Patient requesting interpretation of CT neck results 10/24/2024. BREE: 10/10/2024 Thank you! Huma Willingham RN documented in this encounter [facility] 10-30-2024 Note HNO ID: [id number] Author: HEIDI RAMIREZ MD Service: ? Author Type: Physician Type: Progress Notes Filed: 10/30/2024 18:44 Note Text: [facility] Follow up note NAME: Reji Lorenzo PCP: Celi Murray MD Requesting Provider: Celi Murray MD Chief Complaint: Thyroglossal duct cyst HPI: Reji Lorenzo is a 28 year old female is following up for evaluation of thyroglossal cyst Initial visit/ last visit 10/10/24 History in brief from prior documentation, she reports having GI issues, with recurrent episodes of emesis for atleast 8 months now, associated with epigastric pain, is following GI. She also reports having issues with menstrual cycles, and when she was getting ready for one of these appointments one morning, she noticed a lump in her neck while doing makeup. She followed up with her PCP, and was noticed to have a swelling in neck for which thyroid labs and thyroid ultrasound showing a possible thyroglossal cyst, followed by referral to Endocrinology Related symptoms: Swallowing difficulty: no, but she reports feeling pressure like sensation when swallowing especially with big chunks Shortness of breath when lying flat: no Hoarseness of voice: no Denied any pain History of radiation exposure to the neck: no No environmental or occupational exposure to radioactive materials such as proximity to nuclear plants or living in areas of endemic high radioactivity History of smoking: since age 16, 1 PPD- now she is trying to switch to non-nicotine vaping Family history of thyroid cancer: mother recently diagnosed with thyroid cancer Family history of thyroid nodules: as above Reports sweating a lot For GI evaluation, she underwent endoscopies and was noted to have gastritis, negative for H pylori. Today., she also reports intermittent non painful swelling of her right foot, asks if this is thyroid related. On further questioning, no known autoimmune issues specifically She had active Hep C, for 2 to 2.5 years ago when she was in addiction with heroine IV abuse, in recovery for 30 months Interval history: 10/30/[address] neck for evaluation of the neck lump and to differentiate between thyroglossal duct from exophytic thyroid nodule PAST MEDICAL HISTORY Diagnosis Date ADHD (attention deficit hyperactivity disorder) Anemia complicating (HCC) 12/31/2014 Anxiety Bipolar disorder (HCC) Chlamydia Chronic active hepatitis (HCC) 03/01/2022 Depression Depression 03/17/2014 fracture 11 years old collarbone Fracture age 7 left leg Hepatitis C Herpes simplex without mention of complication History of bleeding ulcers History of heroin use Ovarian cyst PID (acute pelvic inflammatory disease) Polysubstance abuse (HCC) Cocaine, heroin, benzos, methamphetamines Seizure (HCC) 03/01/2022 PAST SURGICAL HISTORY Procedure Laterality Date DELIVERY ONLY 04/16/2018 C/S low transverse ESOPHAGOGASTRODUODENOSCOPY TRANSORAL DIAGNOSTIC 06/08/2014 EGD LAPS SURG CHOLECYSTECTOMY W/CHOLANGIOGRAPHY 03/06/2022 PAST SURGICAL HISTORY OF 09/21/2021 fallopian tubes removed ALLERGIES Allergen Reactions Benadryl [Diphenhyd* Other: See Comments Hyper/anxiety Clindamycin Rash Rash and facial swelling Penicillins Rash Social History Tobacco Use Smoking status: Every Day Current packs/day: 1.00 Average packs/day: 1 pack/day for 14.6 years (14.6 ttl pk-yrs) Types: Cigarettes Start date: 03/17/2010 Smokeless tobacco: Never Vaping Use Vaping status: current everyday user Substances: Nicotine Substance Use Topics Alcohol use: No Drug use: Not Currently Types: Marijuana Comment: kirill Monsivais at today's visit 03/16/2017 FAMILY HISTORY Problem Relation Age of Onset Alcohol/Drug Mother Alcohol/Drug Father Seizures Sister other (SIDS) Brother Breast Cancer Maternal Grandmother Cancer Paternal Grandmother Lymphoma Cancer Paternal Grandfather Diabetes Paternal Grandfather Paternal/Materal sides MEDICATIONS: Current Outpatient Medications on File Prior to Visit Medication Sig famotidine (PEPCID) 40 mg tablet Take 40 mg by mouth daily at bedtime. lansoprazole (PREVACID) 30 mg capsule Take 1 capsule by mouth every 12 hours. ondansetron orally disintegrating (ZOFRAN ODT) 4 mg disintegrating tablet Take by mouth. TAKE 1 TABLET BY MOUTH EVERY 8 HOURS NEEDED FOR NAUSEA fluticasone (FLONASE) 50 mcg/actuation nasal spray Use 1-2 sprays in each nostril once daily. benzonatate (TESSALON PERLE) 100 mg capsule Take 1-2 capsules by mouth three times a day as needed. (Patient not taking: Reported on 10/10/2024) No current facility-administered medications on file prior to visit. REVIEW OF SYSTEMS: 10 point ROS was reviewed and negative unless indicated in the HPI PHYSICAL EXAMINATION: General: no acute distress, alert and (more content not included)... [facility] 10-30-2024 History of Present illness Narrative Images from the original note were not included. [facility] Follow up note NAME: Reji Lorenzo PCP: Celi Murray MD Requesting Provider: Celi Murray MD Chief Complaint: Thyroglossal duct cyst HPI: Reji Lorenzo is a 28 year old female is following up for evaluation of thyroglossal cyst Initial visit/ last visit 10/10/24 History in brief from prior documentation, she reports having GI issues, with recurrent episodes of emesis for atleast 8 months now, associated with epigastric pain, is following GI. She also reports having issues with menstrual cycles, and when she was getting ready for one of these appointments one morning, she noticed a lump in her neck while doing makeup. She followed up with her PCP, and was noticed to have a swelling in neck for which thyroid labs and thyroid ultrasound showing a possible thyroglossal cyst, followed by referral to Endocrinology Related symptoms: Swallowing difficulty: no, but she reports feeling pressure like sensation when swallowing especially with big chunks Shortness of breath when lying flat: no Hoarseness of voice: no Denied any pain History of radiation exposure to the neck: no No environmental or occupational exposure to radioactive materials such as proximity to nuclear plants or living in areas of endemic high radioactivity History of smoking: since age 16, 1 PPD- now she is trying to switch to non-nicotine vaping Family history of thyroid cancer: mother recently diagnosed with thyroid cancer Family history of thyroid nodules: as above Reports sweating a lot For GI evaluation, she underwent endoscopies and was noted to have gastritis, negative for H pylori. Today., she also reports intermittent non painful swelling of her right foot, asks if this is thyroid related. On further questioning, no known autoimmune issues specifically She had active Hep C, for 2 to 2.5 years ago when she was in addiction with heroine IV abuse, in recovery for 30 months Interval history: 10/30/[address] neck for evaluation of the neck lump and to differentiate between thyroglossal duct from exophytic thyroid nodule PAST MEDICAL HISTORY Diagnosis Date ADHD (attention deficit hyperactivity disorder) Anemia complicating (HCC) 12/31/2014 Anxiety Bipolar disorder (HCC) Chlamydia Chronic active hepatitis (HCC) 03/01/2022 Depression Depression 03/17/2014 fracture 11 years old collarbone Fracture age 7 left leg Hepatitis C Herpes simplex without mention of complication History of bleeding ulcers History of heroin use Ovarian cyst PID (acute pelvic inflammatory disease) Polysubstance abuse (HCC) Cocaine, heroin, benzos, methamphetamines Seizure (HCC) 03/01/2022 PAST SURGICAL HISTORY Procedure Laterality Date DELIVERY ONLY 04/16/2018 C/S low transverse ESOPHAGOGASTRODUODENOSCOPY TRANSORAL DIAGNOSTIC 06/08/2014 EGD LAPS SURG CHOLECYSTECTOMY W/CHOLANGIOGRAPHY 03/06/2022 PAST SURGICAL HISTORY OF 09/21/2021 fallopian tubes removed ALLERGIES Allergen Reactions Benadryl [Diphenhyd* Other: See Comments Hyper/anxiety Clindamycin Rash Rash and facial swelling Penicillins Rash Social History Tobacco Use Smoking status: Every Day Current packs/day: 1.00 Average packs/day: 1 pack/day for 14.6 years (14.6 ttl pk-yrs) Types: Cigarettes Start date: 03/17/2010 Smokeless tobacco: Never Vaping Use Vaping status: current everyday user Substances: Nicotine Substance Use Topics Alcohol use: No Drug use: Not Currently Types: Marijuana Comment: kirill Monsivais at today's visit 03/16/2017 FAMILY HISTORY Problem Relation Age of Onset Alcohol/Drug Mother Alcohol/Drug Father Seizures Sister other (SIDS) Brother Breast Cancer Maternal Grandmother Cancer Paternal Grandmother Lymphoma Cancer Paternal Grandfather Diabetes Paternal Grandfather Paternal/Materal sides MEDICATIONS: Current Outpatient Medications on File Prior to Visit Medication Sig famotidine (PEPCID) 40 mg tablet Take 40 mg by mouth daily at bedtime. lansoprazole (PREVACID) 30 mg capsule Take 1 capsule by mouth every 12 hours. ondansetron orally disintegrating (ZOFRAN ODT) 4 mg disintegrating tablet Take by mouth. TAKE 1 TABLET BY MOUTH EVERY 8 HOURS NEEDED FOR NAUSEA fluticasone (FLONASE) 50 mcg/actuation nasal spray Use 1-2 sprays in each nostril once daily. benzonatate (TESSALON PERLE) 100 mg capsule Take 1-2 capsules by mouth three times a day as needed. (Patient not taking: Reported on 10/10/2024) No current facility-administered medications on file prior to visit. REVIEW OF SYSTEMS: 10 point ROS was reviewed and negative unless indicated in the HPI PHYSICAL EXAMINATION: General: no acute distress, alert and orientated X 3, thin built Eyes:EOMI, pupils are equally round, anicteric sclera Neck - supple, no significant adenopathy, Thyroid: palpable lump in the center of the lower neck, moving with deglutition Neuro: alert, oriented, normal speech, gait normal CV: normal rate and regular rhythm, S1 and S2 normal. Chest: unlabored breathing on room air Abdominal: deferred Musculoskeletal: no joint tenderness, deformity or swelling Extremities: no edema, no discoloration Skin: no rash or erythema LABS AND IMAGING TSH Date Value Ref Range Status 09/19/2024 0.478 0.270 - 4.200 mIU/L Final Comment: If the patient is , TSH reference range varies by gestational period: First Trimester (weeks 9-12): 0.180-2.990 mIU/L Second Trimester: 0.110-3.980 mIU/L Third Trimester: 0.480-4.710 mIU/L Serjio Pratt et al. A Practical Approach for the Verifications and Determination of Site- and Trimester-Specific Reference Intervals for Thyroid Function tests in . Thyroid, 2019:29:3:412-420. Cam Lauren, et al. 2017 Guidelines of the [place] [employer] for the Diagnosis and Management of Thyroid Disease during and the . Thyroid, 2017:27:3:315-389. Free T4 Date Value Ref Range Status 09/19/2024 1.3 0.9 - 1.7 ng/dL Final Thyroid ultrasound (09/25/24): RESULT: Right Lobe: 6.0 cm x 1.4 cm x 1.4 cm; homogeneous echogenicity, expected vascular flow. Left Lobe: 5.9 cm x 1.4 cm x 1.3 cm; homogeneous echogenicity, expected vascular flow. Isthmus: 0.1 cm Nodules: There is a 4 x 8 x 11 mm well-defined cyst anterior to the isthmus. IMPRESSION: Enlarged bilateral thyroid. Well defined cyst anterior to the isthmus may represent thyroglossal duct cyst or exophytic thyroid cyst from isthmus. CT neck soft tissue w IV contrast: 10/24/24 RESULT: Postoperative change: None apparent. There is a 4 x 6 mm (AP, TV) low-attenuation lesion in the deep soft tissues of the anterior neck abutting the anterior isthmus of the thyroid gland, suspicious for a thyroglossal duct cyst.. Suprahyoid Neck: Nasopharynx and oropharynx appear normal. Parapharyngeal tissue planes are preserved. Oral cavity and floor of mouth appear normal within constraints of artifact from dental amalgam. Parotid and submandibular spaces are normal. Solar Technician spaces appear normal. Infrahyoid Neck: Hypopharynx, larynx, and imaged infraglottic trachea appear normal. Imaged upper esophagus is unremarkable. Thyroid gland is homogeneous without evidence of discrete nodule. Lymph Nodes: No cervical lymphadenopathy by size criteria. Carotid Space: No masses. Patent extracranial carotid systems and internal jugular veins bilaterally. Orbits, Face and Skull Base: Orbital soft tissue planes are preserved. . Paranasal sinuses are clear. . Mastoid air cells and middle ear cavities are clear. . No evidence of an osteolytic or osteoblastic process in the skull base. . . Imaged intracranial contents: No enhancement, no mass effect, and no hydrocephalus. Cervical spine and remaining osseous structures: Alignment is normal. No discrete osteolytic or osteoblastic process. No significant spondylotic changes in the visualized spine. Lung apices: No mass and no focal consolidation in imaged lung apices. Other: Not applicable. Certified Novell Engineer (topogram) images: No significant findings. ASSESSMENT AND PLAN: Reji Lorenzo is a 28 year old female presenting to endocrinology for evaluation of thyroglossal cyst Thyroglossal cyst: - TFTs normal - she does not seem to have any infection in the duct cyst, although complains of some pain in neck in the submandibular region - review of CT scan shows thyroglossal duct cyst measuring 6 mm. - she asks if the cyst has increased from 4 mm on previous imaging (Thyroid US) to 6 mm (on CT scan) in this short time - I explained that it is a different imaging technique and comparison would be difficult, but less likely that it is increased in size. She then asks what does less likely mean and that she wants confirmation, I explained that it is difficult to give a 100% answer - she is frustrated that she is feeling unwell, and having abdominal problems, and the thyroid is not the reason. She rep[orts being aware that the thyroglossal cyst is the least of her problems as it is not related to her abdominal symptoms which she is waiting for an imaging to be done for evaluation. She reports being frustration about her health - asks what is the next step. I indicated biopsy to know if there is cancer or a risk of cancer. Patient again asks about sedation, does not want to have needles shoving down her neck being awake. Asks what a needle biopsy looks like, and I reviewed the procedure, which she did not like to do. - I also explained possibility of infection, and treatment with antibiotics in those cases, but if frequent infections occur, or if there is cancer on biopsy, surgery is recommended - she ask me about how the surgery goes, which I tried to briefly explain but I indicated it will be the surgeon who could explain the procedure in detail, when she scheduled with one - I placed a referral to ENT. I also gave her a consult to endocrine surgery on last visit which appears ot have not been scheduled - she, again reports that she has searched the internet and that she knows there is always a cancer risk, would like to go for surgery - she then asks what is low attenuation- tried to explain in simple terms, which was difficult for her to follow through - asks if it is a protocol to do biopsy every single time. I tried to explain that the usual recommendation is biopsy to find out if there is cancer but if someone decides to go for surgery bypassing biopsy, this can still be considered because she did not want to do biopsy due to not using anesthesia or sedation She again asks the same question two times, telling me that she is not asking about surgery and I was giving the same answer, indicating there is not a protocol and the process will be different for everybody based on multiple factors and patient choice. She was angry and left, saying she did not get any answers, despite all the discussion that happened 1. Thyroglossal duct cyst (Primary) - CONSULT TO ENT; Future Heidi Ramirez MD [facility] [place] [facility] Medical Decision Making: Problems: Moderate: New problem with uncertain prognosis Data: Unique test result(s) reviewed: 2 Risk: Moderate: Moderate risk from testing/treatment Medical Decision Making Level: 4 - Moderate documented in this encounter [facility] 10-29-2024 Telephone encounter Note Patient called in asking for results as she has not heard anything back. Please advise. [facility] 10-27-2024 Telephone encounter Note Patient requesting interpretation of CT neck results 10/24/2024. BREE: 10/10/2024 Thank you! Huma Willingham RN [facility] 10-24-2024 History of Present illness Narrative Radiology Service Progress Note DATE OF SERVICE: October 24, 2024 TIME: 2:37 PM PATIENT IDENTITY VERIFICATION COMPLETED USING TWO (2) STANDARD IDENTIFIERS: Name and Date of confirmed by patient verbally. FALL SCREENING: Has the patient had 2 falls in the last year or 1 fall with injury or currently using an Ambulatory Assistive Device (Walker, Cane, Wheelchair, Crutches, etc.)? No PATIENT GENDER DATA: Assigned female at . status: : No status: NO. PATIENT RELEVANT IMPLANT DATA REVIEWED: Yes PATIENT PRESENTS WITH AN IMPLANTABLE OR ATTACHED DATA ENTRY: No ALLERGIES: Reviewed and unchanged CONTRAST ALLERGY: NO. EXAM: CT -CONTRAST INDUCED NEPHROPATHY RISK FACTORS: Not applicable CREATININE: Creatinine Date Value Ref Range Status 09/19/2024 0.76 0.58 - 0.96 mg/dL Final 08/11/2022 0.76 0.58 - 0.96 mg/dL Final 02/15/2022 0.62 0.58 - 0.96 mg/dL Final Estimated Glomerular Filtration Rate Date Value Ref Range Status 09/19/2024 110 >=60 mL/min/1.73m Final Comment: Estimated Glomerular Filtration Rate (eGFR) is calculated using the 2020 CKD-EPI creatinine equation. This equation utilizes serum creatinine, sex, and age as parameters. The creatinine assay has traceable calibration to isotope dilution-mass spectrometry. Refer to KDIGO guidelines for clinical interpretation. In patients with unstable renal function, e.g. those with acute kidney injury, the eGFR may not accurately reflect actual GFR. eGFR- Date Value Ref Range Status 01/14/2021 >60 Final P.O.C.T. RESULTS: POC done: Yes, See Lab Tab October 24, 2024 TREATMENT: N/A PERIPHERAL IV DATA: Ambulatory: A peripheral IV was started in the Right forearm with a Angio cath: 22 gauge. RADIOLOGY DEPARTMENT: CT; Exam(s) Completed: Neck SIGNATURE: [place]) PATIENT NAME: Reji Lorenzo DATE: October 24, 2024 TIME: 2:37 PM documented in this encounter [facility] 10-24-2024 Note HNO ID: [id number] Author: KEISHA CARTY RT(R) Service: ? Author Type: Transportation Maintenance Operator Type: Progress Notes Filed: 10/24/2024 14:38 Note Text: Radiology Service Progress Note DATE OF SERVICE: October 24, 2024 TIME: 2:37 PM PATIENT IDENTITY VERIFICATION COMPLETED USING TWO (2) STANDARD IDENTIFIERS: Name and Date of confirmed by patient verbally. FALL SCREENING: Has the patient had 2 falls in the last year or 1 fall with injury or currently using an Ambulatory Assistive Device (Walker, Cane, Wheelchair, Crutches, etc.)? No PATIENT GENDER DATA: Assigned female at . status: : No status: NO. PATIENT RELEVANT IMPLANT DATA REVIEWED: Yes PATIENT PRESENTS WITH AN IMPLANTABLE OR ATTACHED DATA ENTRY: No ALLERGIES: Reviewed and unchanged CONTRAST ALLERGY: NO. EXAM: CT -CONTRAST INDUCED NEPHROPATHY RISK FACTORS: Not applicable CREATININE: Creatinine Date Value Ref Range Status 09/19/2024 0.76 0.58 - 0.96 mg/dL Final 08/11/2022 0.76 0.58 - 0.96 mg/dL Final 02/15/2022 0.62 0.58 - 0.96 mg/dL Final Estimated Glomerular Filtration Rate Date Value Ref Range Status 09/19/2024 110 >=60 mL/min/1.73m? Final Comment: Estimated Glomerular Filtration Rate (eGFR) is calculated using the 2020 CKD-EPI creatinine equation. This equation utilizes serum creatinine, sex, and age as parameters. The creatinine assay has traceable calibration to isotope dilution-mass spectrometry. Refer to KDIGO guidelines for clinical interpretation. In patients with unstable renal function, e.g. those with acute kidney injury, the eGFR may not accurately reflect actual GFR. eGFR- Date Value Ref Range Status 01/14/2021 >60 Final P.O.C.T. RESULTS: POC done: Yes, See Lab Tab October 24, 2024 TREATMENT: N/A PERIPHERAL IV DATA: Ambulatory: A peripheral IV was started in the Right forearm with a Angio cath: 22 gauge. RADIOLOGY DEPARTMENT: CT; Exam(s) Completed: Neck SIGNATURE: RT Ishmael(R) PATIENT NAME: Reji Lorenzo DATE: October 24, 2024 TIME: 2:37 PM [facility] 10-10-2024 Instructions Heidi Ramirez MD - 10/10/2024 8:35 AM EDT Please do a CT neck at your convenience documented in this encounter [facility] 10-10-2024 Note HNO ID: [id number] Author: HEIDI RAMIREZ MD Service: ? Author Type: Physician Type: Progress Notes Filed: 10/10/2024 09:48 Note Text: [facility] Initial Clinic Visit Note NAME: Reji Lorenzo PCP: Celi Murray MD Requesting Provider: Celi Murray MD [id number] [facility] [id number] My final recommendations will be communicated back to the requesting physician by way of shared medical record or letter via US mail. Chief Complaint: Thyroglossal duct cyst HPI: Reji Lorenzo is a 28 year old female was referred for evaluation of thyroglossal cyst History in brief, she reports having GI issues, with recurrent episodes of emesis for atleast 8 months now, associated with epigastric pain, is following GI. She also reports having issues with menstrual cycles, and when she was getting ready for one of these appointments one morning, she noticed a lump in her neck while doing makeup. She followed up with her PCP, and was noticed to have a swelling in neck for which thyroid labs and thyroid ultrasound showing a possible thyroglossal cyst, followed by referral to Endocrinology Related symptoms: Swallowing difficulty: no, but she reports feeling pressure like sensation when swallowing especially with big chunks Shortness of breath when lying flat: no Hoarseness of voice: no Denied any pain History of radiation exposure to the neck: no No environmental or occupational exposure to radioactive materials such as proximity to nuclear plants or living in areas of endemic high radioactivity History of smoking: since age 16, 1 PPD- now she is trying to switch to non-nicotine vaping Family history of thyroid cancer: mother recently diagnosed with thyroid cancer Family history of thyroid nodules: as above Reports sweating a lot For GI evaluation, she underwent endoscopies and was noted to have gastritis, negative for H pylori. Today., she also reports intermittent non painful swelling of her right foot, asks if this is thyroid related. On further questioning, no known autoimmune issues specifically She had active Hep C, for 2 to 2.5 years ago when she was in addiction with heroine IV abuse, in recovery for 30 months PAST MEDICAL HISTORY Diagnosis Date ADHD (attention deficit hyperactivity disorder) Anemia complicating (HCC) 12/31/2014 Anxiety Bipolar disorder (HCC) Chlamydia Chronic active hepatitis (HCC) 03/01/2022 Depression Depression 03/17/2014 fracture 11 years old collarbone Fracture age 7 left leg Hepatitis C Herpes simplex without mention of complication History of bleeding ulcers History of heroin use Ovarian cyst PID (acute pelvic inflammatory disease) Polysubstance abuse (HCC) Cocaine, heroin, benzos, methamphetamines Seizure (HCC) 03/01/2022 PAST SURGICAL HISTORY Procedure Laterality Date DELIVERY ONLY 04/16/2018 C/S low transverse ESOPHAGOGASTRODUODENOSCOPY TRANSORAL DIAGNOSTIC 06/08/2014 EGD LAPS SURG CHOLECYSTECTOMY W/CHOLANGIOGRAPHY 03/06/2022 PAST SURGICAL HISTORY OF 09/21/2021 fallopian tubes removed ALLERGIES Allergen Reactions Benadryl [Diphenhyd* Other: See Comments Hyper/anxiety Clindamycin Rash Rash and facial swelling Penicillins Rash Social History Tobacco Use Smoking status: Every Day Current packs/day: 1.00 Average packs/day: 1 pack/day for 14.6 years (14.6 ttl pk-yrs) Types: Cigarettes Start date: 03/17/2010 Smokeless tobacco: Never Vaping Use Vaping status: current everyday user Substances: Nicotine Substance Use Topics Alcohol use: No Drug use: Not Currently Types: Marijuana Comment: kirill Monsivais at today's visit 03/16/2017 FAMILY HISTORY Problem Relation Age of Onset Alcohol/Drug Mother Alcohol/Drug Father Seizures Sister other (SIDS) Brother Breast Cancer Maternal Grandmother Cancer Paternal Grandmother Lymphoma Cancer Paternal Grandfather Diabetes Paternal Grandfather Paternal/Materal sides MEDICATIONS: Current Outpatient Medications on File Prior to Visit Medication Sig famotidine (PEPCID) 40 mg tablet Take 40 mg by mouth daily at bedtime. lansoprazole (PREVACID) 30 mg capsule Take 1 capsule by mouth every 12 hours. ondansetron orally disintegrating (ZOFRAN ODT) 4 mg disintegrating tablet Take by mouth. TAKE 1 TABLET BY MOUTH EVERY 8 HOURS NEEDED FOR NAUSEA fluticasone (FLONASE) 50 mcg/actuation nasal spray Use 1-2 sprays in each nostril once daily. benzonatate (TESSALON PERLE) 100 mg capsule Take 1-2 capsules by mouth three times a day as needed. (Patient not taking: Reported on 10/10/2024) No current facility-administered medications on file prior to visit. REVIEW OF SYSTEMS: 10 point ROS was reviewed and negative unless indicated in the HPI PHYSICAL EXAMINATION: BP: 90/70 Temp: 36.8 ?C (98.3 ?F) Temp src: Temporal Artery Pulse: 55 (more content not included)... [facility] 10-10-2024 History of Present illness Narrative Images from the original note were not included. [facility] Initial Clinic Visit Note NAME: Reji Lorenzo PCP: Celi Murray MD Requesting Provider: Celi Murray MD [id number] [facility] [id number] My final recommendations will be communicated back to the requesting physician by way of shared medical record or letter via US mail. Chief Complaint: Thyroglossal duct cyst HPI: Reji Lorenzo is a 28 year old female was referred for evaluation of thyroglossal cyst History in brief, she reports having GI issues, with recurrent episodes of emesis for atleast 8 months now, associated with epigastric pain, is following GI. She also reports having issues with menstrual cycles, and when she was getting ready for one of these appointments one morning, she noticed a lump in her neck while doing makeup. She followed up with her PCP, and was noticed to have a swelling in neck for which thyroid labs and thyroid ultrasound showing a possible thyroglossal cyst, followed by referral to Endocrinology Related symptoms: Swallowing difficulty: no, but she reports feeling pressure like sensation when swallowing especially with big chunks Shortness of breath when lying flat: no Hoarseness of voice: no Denied any pain History of radiation exposure to the neck: no No environmental or occupational exposure to radioactive materials such as proximity to nuclear plants or living in areas of endemic high radioactivity History of smoking: since age 16, 1 PPD- now she is trying to switch to non-nicotine vaping Family history of thyroid cancer: mother recently diagnosed with thyroid cancer Family history of thyroid nodules: as above Reports sweating a lot For GI evaluation, she underwent endoscopies and was noted to have gastritis, negative for H pylori. Today., she also reports intermittent non painful swelling of her right foot, asks if this is thyroid related. On further questioning, no known autoimmune issues specifically She had active Hep C, for 2 to 2.5 years ago when she was in addiction with heroine IV abuse, in recovery for 30 months PAST MEDICAL HISTORY Diagnosis Date ADHD (attention deficit hyperactivity disorder) Anemia complicating (HCC) 12/31/2014 Anxiety Bipolar disorder (HCC) Chlamydia Chronic active hepatitis (HCC) 03/01/2022 Depression Depression 03/17/2014 fracture 11 years old collarbone Fracture age 7 left leg Hepatitis C Herpes simplex without mention of complication History of bleeding ulcers History of heroin use Ovarian cyst PID (acute pelvic inflammatory disease) Polysubstance abuse (HCC) Cocaine, heroin, benzos, methamphetamines Seizure (HCC) 03/01/2022 PAST SURGICAL HISTORY Procedure Laterality Date DELIVERY ONLY 04/16/2018 C/S low transverse ESOPHAGOGASTRODUODENOSCOPY TRANSORAL DIAGNOSTIC 06/08/2014 EGD LAPS SURG CHOLECYSTECTOMY W/CHOLANGIOGRAPHY 03/06/2022 PAST SURGICAL HISTORY OF 09/21/2021 fallopian tubes removed ALLERGIES Allergen Reactions Benadryl [Diphenhyd* Other: See Comments Hyper/anxiety Clindamycin Rash Rash and facial swelling Penicillins Rash Social History Tobacco Use Smoking status: Every Day Current packs/day: 1.00 Average packs/day: 1 pack/day for 14.6 years (14.6 ttl pk-yrs) Types: Cigarettes Start date: 03/17/2010 Smokeless tobacco: Never Vaping Use Vaping status: current everyday user Substances: Nicotine Substance Use Topics Alcohol use: No Drug use: Not Currently Types: Marijuana Comment: kirill Monsivais at today's visit 03/16/2017 FAMILY HISTORY Problem Relation Age of Onset Alcohol/Drug Mother Alcohol/Drug Father Seizures Sister other (SIDS) Brother Breast Cancer Maternal Grandmother Cancer Paternal Grandmother Lymphoma Cancer Paternal Grandfather Diabetes Paternal Grandfather Paternal/Materal sides MEDICATIONS: Current Outpatient Medications on File Prior to Visit Medication Sig famotidine (PEPCID) 40 mg tablet Take 40 mg by mouth daily at bedtime. lansoprazole (PREVACID) 30 mg capsule Take 1 capsule by mouth every 12 hours. ondansetron orally disintegrating (ZOFRAN ODT) 4 mg disintegrating tablet Take by mouth. TAKE 1 TABLET BY MOUTH EVERY 8 HOURS NEEDED FOR NAUSEA fluticasone (FLONASE) 50 mcg/actuation nasal spray Use 1-2 sprays in each nostril once daily. benzonatate (TESSALON PERLE) 100 mg capsule Take 1-2 capsules by mouth three times a day as needed. (Patient not taking: Reported on 10/10/2024) No current facility-administered medications on file prior to visit. REVIEW OF SYSTEMS: 10 point ROS was reviewed and negative unless indicated in the HPI PHYSICAL EXAMINATION: BP: 90/70 Temp: 36.8 C (98.3 F) Temp src: Temporal Artery Pulse: 55 SpO2: 97 % General: no acute distress, alert and orientated X 3, thin built Eyes:EOMI, pupils are equally round, anicteric sclera Neck - supple, no significant adenopathy, Thyroid: palpable lump in the center of the lower neck, moving with deglutition Neuro: alert, oriented, normal speech, gait normal CV: normal rate and regular rhythm, S1 and S2 normal. Chest: unlabored breathing on room air Abdominal: deferred Musculoskeletal: no joint tenderness, deformity or swelling Extremities: no edema, no discoloration Skin: no rash or erythema LABS AND IMAGING TSH Date Value Ref Range Status 09/19/2024 0.478 0.270 - 4.200 mIU/L Final Comment: If the patient is , TSH reference range varies by gestational period: First Trimester (weeks 9-12): 0.180-2.990 mIU/L Second Trimester: 0.110-3.980 mIU/L Third Trimester: 0.480-4.710 mIU/L Serjio Pratt, et al. A Practical Approach for the Verifications and Determination of Site- and Trimester-Specific Reference Intervals for Thyroid Function tests in . Thyroid, 2019:29:3:412-420. Cam E, et al. 2017 Guidelines of the [place] [employer] for the Diagnosis and Management of Thyroid Disease during and the . Thyroid, 2017:27:3:315-389. Free T4 Date Value Ref Range Status 09/19/2024 1.3 0.9 - 1.7 ng/dL Final Thyroid ultrasound (09/25/24): RESULT: Right Lobe: 6.0 cm x 1.4 cm x 1.4 cm; homogeneous echogenicity, expected vascular flow. Left Lobe: 5.9 cm x 1.4 cm x 1.3 cm; homogeneous echogenicity, expected vascular flow. Isthmus: 0.1 cm Nodules: There is a 4 x 8 x 11 mm well-defined cyst anterior to the isthmus. IMPRESSION: Enlarged bilateral thyroid. Well defined cyst anterior to the isthmus may represent thyroglossal duct cyst or exophytic thyroid cyst from isthmus. ASSESSMENT AND PLAN: Reji Lorenzo is a 28 year old female presenting to endocrinology for evaluation of thyroglossal cyst Thyroglossal cyst: - TFTs normal - she does not seem to have any infection at this time - I personally reviewed the images of the thyroid ultrasound and started discussing the findings with the patient. Patient was a litle rushed, cut the conversation and asked what the next step would be - I recommended doing a CT neck to differentiate between thyroglossal cyst from a thyroid cyst +/- exophytic - she asks the treatment steps. I reviewed, FNA might be a consideration to rule out cancer +/- surgical referral for removal. She reports her mother did not do well with FNA and would like to know if anesthesia is possible with FNA, and I clearly discussed sedation is no used during FNA due to it being a simple outpatient procedure, but surgery requires anesthesia. I reviewed the right foot swelling is unlikely to be related to the thyroid issues, and recommended her to check with her PCP about right ankle swelling 1. Thyroglossal duct cyst (Primary) - CONSULT TO ENDOCRINE SURGERY - CT NECK SOFT TISSUE W IVCON; Future Questions welcomed and answered to satisfaction The assessment and benefits/risks of the plan were discussed with the patient who expressed understanding and was agreeable to that which is noted above. Follow up 2 to [address] imaging results Heidi Ramirez MD [facility] Endocrinology and Metabolism [place] [facility] Medical Decision Making: Problems: Moderate: New problem with uncertain prognosis Data: Unique test result(s) reviewed: 3+ Unique test(s) ordered: 1 Independent interpretation of test from other physician/QHCP Risk: Moderate: Moderate risk from testing/treatment Medical Decision Making Level: 4 - Moderate documented in this encounter [facility] 09-25-2024 Note HNO ID: [id number] Author: VERONICA WILKES RDMS Service: ? Author Type: Transportation Maintenance Operator Type: Progress Notes Filed: 09/25/2024 11:49 Note Text: Radiology Service Progress Note PATIENT NAME: Reji Lorenzo DATE OF SERVICE: September 25, 2024 TIME: 11:49 AM PATIENT IDENTITY VERIFICATION COMPLETED USING TWO (2) IDENTIFIERS: Name and Date of confirmed by patient verbally. FALL SCREENING: Has the patient had 2 falls in the last year or 1 fall with injury or currently using an Ambulatory Assistive Device (Walker, Cane, Wheelchair, Crutches, etc.)? No PATIENT GENDER DATA: Assigned female at . status: : No status: NO. PATIENT RELEVANT IMPLANT DATA REVIEWED: Not Applicable PATIENT PRESENTS WITH AN IMPLANTABLE OR ATTACHED DATA ENTRY: No RADIOLOGY DEPARTMENT: Ultrasound PERIPHERAL IV DATA: Not applicable SIGNED BY: Veronica Wilkes RDMS September 25, 2024 11:49 AM [facility] 09-23-2024 Note HNO ID: [id number] Author: AMANDA REYES APRN.MANAGER PROVIDER RELATIONS Service: ? Author Type: Nurse Practitioner Type: Progress Notes Filed: 09/23/2024 12:13 Note Text: 09/23/2024 Patient presents with: Follow Up Recording using [employer] software for draft documentation of the visit was discussed with the patient/authorized hotel services sales representative; all questions welcomed and answered. Patient/authorized hotel services sales representative agreed to proceed SUBJECTIVE: This is a 28 year old that is here today for Above Complaints.. Weight Loss: - Recent weight loss; current weight is 115 lbs, previously 114 lbs. - Denies changes in dietary habits; typically consumes one meal per day (dinner) with a snack afterward. - Denies use of illicit drugs. Hair Thinning: - Noticed significant hair thinning over the past two months, especially around the hairline. - Denies recent illness or use of harsh hair products. - No bald spots or receding hairline observed. Hepatitis C: - History of hepatitis C; recent labs show positive antibody but no RNA detected. Thyroid Nodule: - Recent labs show normal thyroid levels. - Family history of thyroid cancer in mother, who had normal thyroid levels at the time of diagnosis. - Scheduled for a thyroid ultrasound. GI Issues: - Ongoing GI issues; scheduled for a gastric emptying study on Sunday. - Recent upper and lower scopes performed; awaiting results. - History of ulcers at age 16. - No gallbladder. PAST MEDICAL HISTORY Diagnosis Date ADHD (attention deficit hyperactivity disorder) Anemia complicating (HCC) 12/31/2014 Anxiety Bipolar disorder (HCC) Chlamydia Chronic active hepatitis (HCC) 03/01/2022 Depression Depression 03/17/2014 fracture 11 years old collarbone Fracture age 7 left leg Hepatitis C Herpes simplex without mention of complication History of bleeding ulcers History of heroin use Ovarian cyst PID (acute pelvic inflammatory disease) Polysubstance abuse (HCC) Cocaine, heroin, benzos, methamphetamines Seizure (HCC) 03/01/2022 ALLERGIES Benadryl [Diphenhydramine Hcl], Clindamycin, and Penicillins MEDICATIONS Current Outpatient Medications Medication Sig famotidine (PEPCID) 40 mg tablet Take 40 mg by mouth daily at bedtime. lansoprazole (PREVACID) 30 mg capsule Take 1 capsule by mouth every 12 hours. ondansetron orally disintegrating (ZOFRAN ODT) 4 mg disintegrating tablet Take by mouth. TAKE 1 TABLET BY MOUTH EVERY 8 HOURS NEEDED FOR NAUSEA fluticasone (FLONASE) 50 mcg/actuation nasal spray Use 1-2 sprays in each nostril once daily. benzonatate (TESSALON PERLE) 100 mg capsule Take 1-2 capsules by mouth three times a day as needed. No current facility-administered medications for this visit. Medications and allergies reviewed by this provider. SOCIAL HISTORY Social History Tobacco Use Smoking status: Every Day Current packs/day: 1.00 Average packs/day: 1 pack/day for 14.5 years (14.5 ttl pk-yrs) Types: Cigarettes Start date: 03/17/2010 Smokeless tobacco: Never Vaping Use Vaping status: current everyday user Substances: Nicotine Substance Use Topics Alcohol use: No Drug use: Not Currently Types: Marijuana Comment: kirill Monsivais at today's visit 03/16/2017 REVIEW OF SYSTEMS All other reviewed and negative other than HPI. OBJECTIVE: BP 106/64 Pulse 65 Resp 18 Wt 52.3 kg (115 lb 6.4 oz) LMP 07/31/2023 (Approximate) BMI 21.11 kg/m? . Vital signs reviewed by this provider. APPEARANCE Well appearing, alert, in no acute distress, well-hydrated, well nourished. Latest Ref Rng 09/19/2024 WBC 3.70 - 11.00 k/uL 9.57 RBC 3.90 - 5.20 m/uL 4.36 Hemoglobin 11.5 - 15.5 g/dL 13.2 Hematocrit 36.0 - 46.0 % 38.9 MCV 80.0 - 100.0 fL 89.2 MCH 26.0 - 34.0 pg 30.3 MCHC 30.5 - 36.0 g/dL 33.9 RDW-CV 11.5 - 15.0 % 13.2 Platelet Count 150 - 400 k/uL 263 MPV 9.0 - 12.7 fL 10.1 Neut% % 67.1 Abs Neut (ANC) 1.45 - 7.50 k/uL 6.42 Lymph% % 26.6 Abs Lymph 1.00 - 4.00 k/uL 2.55 Stark% % 4.0 Abs Stark <0.87 k/uL 0.38 Eosin% % 1.4 Abs Eosin <0.46 k/uL 0.13 Baso% % 0.7 Abs Baso <0.11 k/uL 0.07 Immature Gran % % 0.2 IMMATURE GRANS (ABS) <0.10 k/uL <0.03 NRBC /100 WBC 0.0 Absolute nRBC <0.01 k/uL <0.01 DTYPE Auto Protein, Total 6.3 - 8.0 g/dL 7.8 Albumin 3.9 - 4.9 g/dL 4.7 Calcium 8.5 - 10.2 mg/dL 10.1 Bilirubin, Total 0.2 - 1.3 mg/dL 0.3 Alkaline Phosphatase 34 - 123 U/L 51 AST 13 - 35 U/L 31 ALT 7 - 38 U/L 22 Glucose 74 - 99 mg/dL 104 (H) BUN 7 - 21 mg/dL 10 Creatinine 0.58 - 0.96 mg/dL 0.76 Sodium 136 - 144 mmol/L 138 Potassium 3.7 - 5.1 mmol/L 4.2 Chloride 98 - 107 mmol/L 103 CO2 22 - 30 mmol/L 21 (L) Anion Gap 8 - 15 mmol/L 14 eGFR >=60 mL/min/1.73m? 110 HIV 12 Combo (Ag/Ab) Nonreactive Nonreactive HIV 1/2 Ab -- HIV Interpretation -- TSH 0.270 - 4.200 mIU/L 0.478 T3 79 - 165 ng/dL 120 Free T4 0.9 - 1.7 ng/dL 1.3 Hep C Antibody IA Negative Posi (more content not included)... [facility] 09-19-2024 History of Present illness Narrative Radiology Service Progress Note PATIENT NAME: Reji Lorenzo DATE OF SERVICE: September 19, 2024 TIME: 12:16 PM PATIENT IDENTITY VERIFICATION COMPLETED USING TWO (2) IDENTIFIERS: Name and Date of confirmed by patient verbally. FALL SCREENING: Has the patient had 2 falls in the last year or 1 fall with injury or currently using an Ambulatory Assistive Device (Walker, Cane, Wheelchair, Crutches, etc.)? No PATIENT GENDER DATA: Assigned female at . status: : No status: NO. PATIENT RELEVANT IMPLANT DATA REVIEWED: Not Applicable PATIENT PRESENTS WITH AN IMPLANTABLE OR ATTACHED DATA ENTRY: No RADIOLOGY DEPARTMENT: General X-ray: Exam(s) Completed: Lower Extremity X-Ray(s): Ankle, Right and Wt. Bearing PERIPHERAL IV DATA: Not applicable SIGNED BY: WEST King) September 19, 2024 12:16 PM documented in this encounter [facility] 09-19-2024 Note HNO ID: [id number] Author: JACKSON QUINTERO RT(R) Service: Radiology Author Type: Technologist Type: Progress Notes Filed: 09/19/2024 12:30 Note Text: Radiology Service Progress Note PATIENT NAME: Reji Lorenzo DATE OF SERVICE: September 19, 2024 TIME: 12:16 PM PATIENT IDENTITY VERIFICATION COMPLETED USING TWO (2) IDENTIFIERS: Name and Date of confirmed by patient verbally. FALL SCREENING: Has the patient had 2 falls in the last year or 1 fall with injury or currently using an Ambulatory Assistive Device (Walker, Cane, Wheelchair, Crutches, etc.)? No PATIENT GENDER DATA: Assigned female at . status: : No status: NO. PATIENT RELEVANT IMPLANT DATA REVIEWED: Not Applicable PATIENT PRESENTS WITH AN IMPLANTABLE OR ATTACHED DATA ENTRY: No RADIOLOGY DEPARTMENT: General X-ray: Exam(s) Completed: Lower Extremity X-Ray(s): Ankle, Right and Wt. Bearing PERIPHERAL IV DATA: Not applicable SIGNED BY: Jackson Quintero, RT(R) September 19, 2024 12:16 PM [facility] 09-19-2024 Instructions Amanda Reyes APRN.EDILBERTO - 09/19/2024 12:01 PM EDT Follow-up for longer appointment to discuss further issues documented in this encounter [facility] 09-19-2024 Note HNO ID: [id number] Author: AMANDA REYES APRN.EDILBERTO Service: ? Author Type: Nurse Practitioner Type: Progress Notes Filed: 09/19/2024 12:26 Note Text: 09/19/2024 Patient presents with: Mass: To neck, noticed yesterday. Hard to swallow. Recording using [employer] software for draft documentation of the visit was discussed with the patient/authorized hotel services sales representative; all questions welcomed and answered. Patient/authorized hotel services sales representative agreed to proceed SUBJECTIVE: This is a 28 year old that is here today for Above Complaints.. Neck Mass: - Noticed a lump in the neck yesterday while doing makeup. - Mass is palpable when swallowing. - Denies dysphagia. - Mother had thyroid cancer. Unintentional Weight Loss: - Significant weight loss over the past few months. - Decreased appetite due to nausea. - Nausea began after a flu episode around [place]; wakes up to emesis and cannot lie down comfortably. - Undergoing evaluation by Dr. Merline Hills at [facility]. - Recent EGD and colonoscopy performed; bile noted in the stomach. - Gastric emptying study scheduled for the . - Hair thinning observed; denies alopecia. - Bruises easily on arms and legs. - History of hepatitis C, treated with Epclusa but did not complete treatment. Right Ankle Pain: - Acute onset of right ankle pain and swelling x2 days. - Denies known trauma or injury. PAST MEDICAL HISTORY Diagnosis Date ADHD (attention deficit hyperactivity disorder) Anemia complicating (HCC) 12/31/2014 Anxiety Bipolar disorder (HCC) Chlamydia Chronic active hepatitis (HCC) 03/01/2022 Depression Depression 03/17/2014 fracture 11 years old collarbone Fracture age 7 left leg Hepatitis C Herpes simplex without mention of complication History of bleeding ulcers History of heroin use Ovarian cyst PID (acute pelvic inflammatory disease) Polysubstance abuse (HCC) Cocaine, heroin, benzos, methamphetamines Seizure ([facility]) 03/01/2022 ALLERGIES Benadryl [Diphenhydramine Hcl], Clindamycin, and Penicillins MEDICATIONS Current Outpatient Medications Medication Sig famotidine (PEPCID) 40 mg tablet Take 40 mg by mouth daily at bedtime. lansoprazole (PREVACID) 30 mg capsule Take 1 capsule by mouth every 12 hours. ondansetron orally disintegrating (ZOFRAN ODT) 4 mg disintegrating tablet Take by mouth. TAKE 1 TABLET BY MOUTH EVERY 8 HOURS NEEDED FOR NAUSEA fluticasone (FLONASE) 50 mcg/actuation nasal spray Use 1-2 sprays in each nostril once daily. benzonatate (TESSALON PERLE) 100 mg capsule Take 1-2 capsules by mouth three times a day as needed. buprenorphine ER (SUBLOCADE) 100 mg/0.5 mL injection Inject 100 mg subcutaneously one time only. (Patient not taking: Reported on 08/17/2023) No current facility-administered medications for this visit. Medications and allergies reviewed by this provider. SOCIAL HISTORY Social History Tobacco Use Smoking status: Every Day Current packs/day: 1.00 Average packs/day: 1 pack/day for 14.5 years (14.5 ttl pk-yrs) Types: Cigarettes Start date: 03/17/2010 Smokeless tobacco: Never Vaping Use Vaping status: current everyday user Substances: Nicotine Substance Use Topics Alcohol use: No Drug use: Not Currently Types: Marijuana Comment: kirill Monsivais at today's visit 03/16/2017 REVIEW OF SYSTEMS All other reviewed and negative other than HPI. OBJECTIVE: BP 124/78 Pulse 85 Resp 18 Wt 52.2 kg (115 lb) LMP 07/31/2023 (Approximate) SpO2 94% BMI 21.03 kg/m? . Vital signs reviewed by this provider. GENERAL: NAD, alert and oriented. SKIN: Unremarkable, no rash or skin lesions. A couple of bruises to legs observed. HEAD: Normocephalic. EYES: PERRLA, EOMI, conjunctiva clear. EARS: External ears normal, canals clear, TM's normal. NOSE/SINUSES: Nares normal. Septum midline. OROPHARYNX: Lips, mucosa, and tongue normal, good dentition. No oral lesions noted. NECK: Thyroid enlarged with palpable nodule on right , tender to palpation. No bruits. LUNGS: Clear to auscultation bilaterally, no wheezes/rhonchi/rales. HEART: Regular rate and rhythm, no murmurs. No ectopy. EXTREMITIES: Right medial ankle with mild swelling, no erythema. No deformities. NEURO: Awake, alert and oriented x3, cranial nerves II-XII grossly intact, normal gait, no involuntary motions. Hepatitis A Vaccine(1 of 2 - Risk 2-dose series) Never done Pneumococcal Vaccine(1 of 2 - PCV) Never done Cervical Cancer Screening due on 09/13/2020 Covid-19 Vaccine( season) Never done Influenza Vaccine(Season Ended) due on 01/05/2025 DTaP,Tdap,Td Vaccine(10 - Td or Tdap) due on 09/25/2029 Hepatitis B Vaccine Completed Hepatitis C Screening Completed HIV Screening Completed 1. Thyroid nodule (E04.1) - Palpable nodule and enlargement of the thyroid gland on examination. - Family history of thyroid cancer in the mother. (more content not included)... [facility] 09-19-2024 History of Present illness Narrative 09/19/2024 Patient presents with: Mass: To neck, noticed yesterday. Hard to swallow. Recording using [employer] software for draft documentation of the visit was discussed with the patient/authorized hotel services sales representative; all questions welcomed and answered. Patient/authorized hotel services sales representative agreed to proceed SUBJECTIVE: This is a 28 year old that is here today for Above Complaints.. Neck Mass: - Noticed a lump in the neck yesterday while doing makeup. - Mass is palpable when swallowing. - Denies dysphagia. - Mother had thyroid cancer. Unintentional Weight Loss: - Significant weight loss over the past few months. - Decreased appetite due to nausea. - Nausea began after a flu episode around [place]; wakes up to emesis and cannot lie down comfortably. - Undergoing evaluation by Dr. Merline Hills at [facility]. - Recent EGD and colonoscopy performed; bile noted in the stomach. - Gastric emptying study scheduled for the . - Hair thinning observed; denies alopecia. - Bruises easily on arms and legs. - History of hepatitis C, treated with Epclusa but did not complete treatment. Right Ankle Pain: - Acute onset of right ankle pain and swelling x2 days. - Denies known trauma or injury. PAST MEDICAL HISTORY Diagnosis Date ADHD (attention deficit hyperactivity disorder) Anemia complicating ([facility]) 12/31/2014 Anxiety Bipolar disorder ([facility]) Chlamydia Chronic active hepatitis ([facility]) 03/01/2022 Depression Depression 03/17/2014 fracture 11 years old collarbone Fracture age 7 left leg Hepatitis C Herpes simplex without mention of complication History of bleeding ulcers History of heroin use Ovarian cyst PID (acute pelvic inflammatory disease) Polysubstance abuse ([facility]) Cocaine, heroin, benzos, methamphetamines Seizure ([facility]) 03/01/2022 ALLERGIES Benadryl [Diphenhydramine Hcl], Clindamycin, and Penicillins MEDICATIONS Current Outpatient Medications Medication Sig famotidine (PEPCID) 40 mg tablet Take 40 mg by mouth daily at bedtime. lansoprazole (PREVACID) 30 mg capsule Take 1 capsule by mouth every 12 hours. ondansetron orally disintegrating (ZOFRAN ODT) 4 mg disintegrating tablet Take by mouth. TAKE 1 TABLET BY MOUTH EVERY 8 HOURS NEEDED FOR NAUSEA fluticasone (FLONASE) 50 mcg/actuation nasal spray Use 1-2 sprays in each nostril once daily. benzonatate (TESSALON PERLE) 100 mg capsule Take 1-2 capsules by mouth three times a day as needed. buprenorphine ER (SUBLOCADE) 100 mg/0.5 mL injection Inject 100 mg subcutaneously one time only. (Patient not taking: Reported on 08/17/2023) No current facility-administered medications for this visit. Medications and allergies reviewed by this provider. SOCIAL HISTORY Social History Tobacco Use Smoking status: Every Day Current packs/day: 1.00 Average packs/day: 1 pack/day for 14.5 years (14.5 ttl pk-yrs) Types: Cigarettes Start date: 03/17/2010 Smokeless tobacco: Never Vaping Use Vaping status: current everyday user Substances: Nicotine Substance Use Topics Alcohol use: No Drug use: Not Currently Types: Marijuana Comment: kirill Monsivais at today's visit 03/16/2017 REVIEW OF SYSTEMS All other reviewed and negative other than HPI. OBJECTIVE: BP 124/78 Pulse 85 Resp 18 Wt 52.2 kg (115 lb) LMP 07/31/2023 (Approximate) SpO2 94% BMI 21.03 kg/m . Vital signs reviewed by this provider. GENERAL: NAD, alert and oriented. SKIN: Unremarkable, no rash or skin lesions. A couple of bruises to legs observed. HEAD: Normocephalic. EYES: PERRLA, EOMI, conjunctiva clear. EARS: External ears normal, canals clear, TM's normal. NOSE/SINUSES: Nares normal. Septum midline. OROPHARYNX: Lips, mucosa, and tongue normal, good dentition. No oral lesions noted. NECK: Thyroid enlarged with palpable nodule on right , tender to palpation. No bruits. LUNGS: Clear to auscultation bilaterally, no wheezes/rhonchi/rales. HEART: Regular rate and rhythm, no murmurs. No ectopy. EXTREMITIES: Right medial ankle with mild swelling, no erythema. No deformities. NEURO: Awake, alert and oriented x3, cranial nerves II-XII grossly intact, normal gait, no involuntary motions. Hepatitis A Vaccine(1 of 2 - Risk 2-dose series) Never done Pneumococcal Vaccine(1 of 2 - PCV) Never done Cervical Cancer Screening due on 09/13/2020 Covid-19 Vaccine( - season) Never done Influenza Vaccine(Season Ended) due on 01/05/2025 DTaP,Tdap,Td Vaccine(10 - Td or Tdap) due on 09/25/2029 Hepatitis B Vaccine Completed Hepatitis C Screening Completed HIV Screening Completed 1. Thyroid nodule (E04.1) - Palpable nodule and enlargement of the thyroid gland on examination. - Family history of thyroid cancer in the mother. - Ordered thyroid ultrasound. - Ordered thyroid function tests. - Patient to schedule ultrasound at the [facility]. 2. Enlarged thyroid (E04.9) - plan as in #1 3. Weight loss (R63.4) - Significant unintentional weight loss over the past few months; ongoing evaluation by gastroenterology. - Upper and lower endoscopy performed; bile reflux noted. - Gastric emptying study scheduled for the . - Ordered HIV test and checking TSH as well as US thyroid - Patient to follow up with gastroenterology. 4. Acute right ankle pain (M25.571) - Onset 2 days ago, no known trauma. - Mild swelling observed on the medial aspect of the right ankle. - Ordered X-ray of the right ankle. - recommend R.I.C.E 5. History of hepatitis C (Z86.19) - Incomplete treatment with Epclusa. - Ordered hepatitis C viral load test to assess current status. 6. Chronic nausea - ICD9: 787.02, ICD10: R11.0 - follow-up with gastroenterology as scheduled Amanda Reyes APRN.CNP Prescription instructions reviewed with patient as applicable. Patient advised if symptoms do not improve or if symptoms worsen sooner, to contact their primary care physician. Potential red flag symptoms discussed with the patient. Reviewed appropriate action plan to take if red flag symptoms occur. Patient agreeable to treatment plan. Medical Decision Making: Problems: Moderate: New problem with uncertain prognosis Data: Unique test(s) ordered: 3+ Risk: Moderate: Moderate risk from testing/treatment Medical Decision Making Level: 4 - Moderate documented in this encounter [facility] 09-19-2024 Telephone encounter Note Has not been seen in ER. Went to ED waited 4 hours and left. Ashli Garcia LPN [facility] 09-19-2024 Miscellaneous Notes Has not been seen in ER. Went to ED waited 4 hours and left. Ashli Garcia LPN If patient is doing an ER follow-up will need to be 40 mintues- please schedule appropriately. Amanda Reyes APRN.CNP documented in this encounter [facility] 09-19-2024 Telephone encounter Note If patient is doing an ER follow-up will need to be 40 mintues- please schedule appropriately. Amanda Reyes APRN.EDILBERTO [facility] Work Phone: 09-18-2024 Telephone encounter Note Pt called and is notified of providers message and instructions. Pt voices understanding. She states she went to the ER because she was afraid and wanted her neck to get looked at now. Canceled Pts appointment for tomorrow. Mallory Sevilla RN [facility] 09-18-2024 Miscellaneous Notes Pt called and is notified of providers message and instructions. Pt voices understanding. She states she went to the ER because she was afraid and wanted her neck to get looked at now. Canceled Pts appointment for tomorrow. Mallory Sevilla RN Patient will need rescheduled for 40 minute appt to review all complaints. If patient would like to be seen tomorrow we can address the lump in her neck and schedule her for follow up appt to address the rest. Pt called in and wanted to know if provider would put in labs for her to get before her appointment on 09/19/24. She states she took her son to see his pediatric provider and the had felt a lump on the side of her neck and he felt it and she said he told her it felt like it could be a thyroid nodule. She states he mom had thyroid cancer. She also reports that she woke up yesterday and her R ankle was swollen and hurt to put pressure on. I told her she only has a 20 min appointment and the provider would be able to go over all these issues. She said she told them she would need a longer appointment. I told her I could move her to see Amanda Heardlogankur [facility] EXAMINER tomorrow at 720 am and she said she can't because she is the only person st home to put her children on the bus at 8 am. Please call and advise. Mallory Sevilla RN documented in this encounter [facility] 09-18-2024 Telephone encounter Note Patient will need rescheduled for 40 minute appt to review all complaints. If patient would like to be seen tomorrow we can address the lump in her neck and schedule her for follow up appt to address the rest. [facility] Work Phone: 09-18-2024 Telephone encounter Note Pt called in and wanted to know if provider would put in labs for her to get before her appointment on 09/19/24. She states she took her son to see his pediatric provider and the had felt a lump on the side of her neck and he felt it and she said he told her it felt like it could be a thyroid nodule. She states he mom had thyroid cancer. She also reports that she woke up yesterday and her R ankle was swollen and hurt to put pressure on. I told her she only has a 20 min appointment and the provider would be able to go over all these issues. She said she told them she would need a longer appointment. I told her I could move her to see Amanda Heardlogankur [facility] [employer]ER tomorrow at 720 am and she said she can't because she is the only person st home to put her children on the bus at 8 am. Please call and advise. Mallory Sevilla RN [facility] 09-17-2024 Evaluation note Diagnosis Onset Date Resolution Pelvic pain acute September 17 1:51pm Encounter for routine gynecological examination noneactive September 17, 2024 1:51pm Acute non-ST elevation myocardial infarction (NSTEMI) acute November 10, 2024 5:14pm Weight loss acute November 10 5:14pm History of drug abuse resolved Nov 5:14pm [facility] Work Phone: [phone]) 481-160505-08-2025 Telephone encounter Note* Telephone Encounter - Mallory Sevilla, RN - 09/11/2024 10:26 AM EDT Protocol recommends Pt go to ER now. Pt has to find someone to watch her kids and will be going to [facility] ER. Care plan reviewed with patient. Patient voices understanding. Advised patient that if symptoms get worse to call 911. Reason for Disposition Chest pain SEVERE chest pain Answer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 hotel services sales representative agreed to proceed IF YOUR SYMPTOMS PERSIST OR WORSENING IN THE NEXT 3-5 DAYS THEN PLEASE FOLLOW UP WITH YOUR PCP - Red flags discussed for need for in person care - All questions answered Evi Kaufman APRN.CNP Differential Diagnoses - is more likely for the following reason(s): suggested by H&P CODIN documented in this encounterUniversity [facility]als [facility]02-20-2025 Evaluation note* Diagnosis Onset Date Resolution Status Admit Date Epigastric pain acute June 26, 2024 8:48am Rectal bleeding acute June 26, 2024 8:48am Constipation acute June 9:15am Gastritis, bile acid reflux acute July 03, 2024 9:15am Status post section acute July 03, 2024 9:15am Tobacco abuse acute July 032024 9:15am Encounter for routine gynecological examination noneactive September 172024 1:51pm [facility] Work Phone: [phone]) [phone] Evaluation note* Diagnosis Onset Date Resolution Status Admit Date Epigastric pain acute June 26, 2024 8:48am Rectal bleeding acute June 26, 2024 8:48am Constipation acute June 9:15am Gastritis, bile acid reflux acute July 03, 2024 9:15am Status post section acute July 03, 2024 9:15am Tobacco abuse acute July 032024 9:15am Pelvic pain acute September 17 1:51pm Encounter for routine gynecological examination noneactive September 172024 1:51pm [facility] Work Phone: 1(578) 247-377102-20-2025 [facility] Medical Records Department [address] [place] [address] History Physical Exam 06/26/24 1006 MR#: [id number] Acct: [id number] Name: REJI LORENZO CARO Rep #: [id number] : 1995 28 From: Arik Friend DO PCP: Dr. Nando Murray MD Status:REG [facility] Location: [place] [address]- HPI - General General Date of Admission: 07/09/24 Date of Service: 06/26/24 Chief Complaint: nausea, vomiting and diarrhea HPI Narrative REJI LORENZO, is a 28 F who presents for the endoscopic evaluation of nausea, vomiting and diarrhea. 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 - treated for HCV - denies any alcohol use - she does smoke marijuana daily for the past 2 months - she reports UGI symptoms were further exacerbated when she went off Suboxone for the past 2-3 months - IBU 400mg TID for headaches PFSH Medical History (Updated 06/24/24 @ 12:34 by Missy Fletcher) Wears contact lenses Marijuana use Easy bruising Migraine headache Syncope Seizures History of ulceration Gastric reflux Smoker Hepatitis C test positive H/O emotional problems Alcohol abuse Depression affecting Positive urine drug screen Anemia Herpes Tobacco abuse complicated by subutex maintenance, antepartum History of drug abuse Home Medications ???Medication ???Instructions ???Recorded ???Last Taken ???Type lansoprazole 30 mg capsule,delayed 30 mg PO BID #60 caps 05/27/24 0 06/25/24 Rx release famotidine 40 mg tablet 40 mg PO QHS #30 tabs 05/28/24 Rx ondansetron 8 mg disintegrating 8 mg PO Q12H PRN nausea and 06/26/24 08:00 Rx tablet vomiting #30 tabs Allergy/AdvReac Type Severity Reaction Status Date / Time clindamycin Allergy Hives Verified 06/26/24 09:10 diphenhydramine HCl (From Allergy Hives Verified 06/26/24 09:10 Benadryl) Penicillins Allergy Hives Verified 06/26/24 09:10 Family History Other Alcoholism Anxiety Arthritis Cancer Cervical cancer Depression Diabetes Mental disorder Ovarian cancer Psychiatric care Seizures Thyroid disorder Surgical History (Updated 06/24/24 @ 12:34 by Missy Fletcher) History of esophagogastroduodenoscopy (EGD) History of cholecystectomy History of Social History household members: family housing: house number of children: 2 Smoking Status: Current every day smoker tobacco type: cigarettes alcohol intake: former substance use type: former substance user Date of last use: 05/2020 what type of physical activity do you participate in: none do you feel safe at home: Yes ROS Constitutional Constitutional: Denies fatigue, fever(s), poor appetite, weight gain or weight loss Gastrointestinal Gastrointestinal: Denies belching, bloating, change in bowel habits, change in stool character, chewing difficulty, coffee ground emesis, constipation, cramping, diarrhea, dyspepsia, dysphagia, early satiety, excessive flatus, fecal incontinence, heartburn, hematemesis, hematochezia, hemorrhoids, loose stools, melena, nausea, odynophagia, rectal bleeding, tenesmus, vomiting or weight changes Vital Signs Vital Signs Vital Signs: 06/26/24 09:11 06/26/24 09:12 06/26/24 09:54 Temperature 98.6 F 98.6 F Temperature Source Temporal Pulse Rate 60 60 Respiratory Rate 16 16 Respiratory Pattern Normal Blood Pressure 102/46 L 102/46 L Blood Pressure Mean 64 Blood Pressure Source Monitor Blood Pressure Position Semi-Fowlers Blood Pressure Location Right Arm Pulse Ox 99 99 Oxygen Delivery Method Room Air Room Air Weight Weight: 123 lb Body Mass Index (BMI) 22.4 Physical Exam Const alert, oriented x3, no apparent distress and healthy appearing General Appearance: cooperative GI normal to inspection, nondistended, normoactive bowel sounds, soft to palpation, non-tender and non- distended Percussion: normal to percussion Rectal Exam: deferred Assessment Plan Assessment/Plan (1) Rectal bleeding: (2) Epigastric pain: PLAN: Assessment and Plan Assessment and Plan (1) Nausea and vomiting: Status: Inactive Plan: EGD, ABD US, Lansoprazole, Carafate, Famotidine (2) Epigastric pain: Status: Acute Plan: EGD, ABD US, Lansoprazole, Carafate, Famotidine (3) Rectal bleeding: Statu (more content not included)...[facility] NoteHNO ID: [id number] Author: ALYX BECKWITH APRN.MANAGER PROVIDER RELATIONS Service: ? Author Type: Nurse Practitioner Type: Progress Notes Filed: 05/24/2024 14:29 Note Text: Telemedicine Visit - Distance Health Virtual Visit Note Patient seen on [employer] Video Visit platform. Location of patient: [place] I have communicated my name and active licensure. The patient's identity and physical location were verified at the time of this visit. Either the patient or their legal hotel services sales representative has been informed of the risks and benefits of -- and alternatives to -- treatment through a remote evaluation and consents to proceed with the evaluation remotely. History of Present Illness Reji Lorenzo is a 28 year old female who presents for complaint of genital herpes lesions that have been present x 1 week. SHe has a known history of genital herpes and is concerned because it just isnt 'going away' . She cannot remember the last time she had an outbreak. Denies any other somatic complaints Vaginitis ROS: Symptoms include: Positive for: none and lesions Predisposing factors: None Hx of previous vaginitis: yes, hsv PAST MEDICAL HISTORY Diagnosis Date ADHD (attention deficit hyperactivity disorder) Anemia complicating 12/31/2014 Anxiety Bipolar disorder (HCC) Chlamydia Chronic active hepatitis (HCC) 03/01/2022 Depression Depression 03/17/2014 fracture 11 years old collarbone Fracture age 7 left leg Hepatitis C Herpes simplex without mention of complication History of bleeding ulcers History of heroin use Ovarian cyst PID (acute pelvic inflammatory disease) Polysubstance abuse (HCC) Cocaine, heroin, benzos, methamphetamines Seizure (HCC) 03/01/2022 PAST SURGICAL HISTORY Procedure Laterality Date DELIVERY ONLY 04/16/2018 C/S low transverse ESOPHAGOGASTRODUODENOSCOPY TRANSORAL DIAGNOSTIC 06/08/2014 EGD LAPS SURG CHOLECYSTECTOMY W/CHOLANGIOGRAPHY 03/06/2022 PAST SURGICAL HISTORY OF 09/21/2021 fallopian tubes removed FAMILY HISTORY Problem Relation Age of Onset Alcohol/Drug Mother Alcohol/Drug Father Seizures Sister other (SIDS) Brother Breast Cancer Maternal Grandmother Cancer Paternal Grandmother Lymphoma Cancer Paternal Grandfather Diabetes Paternal Grandfather Paternal/Materal sides Social History Tobacco Use Smoking status: Every Day Current packs/day: 1.00 Average packs/day: 1 pack/day for 14.2 years (14.2 ttl pk-yrs) Types: Cigarettes Start date: 03/17/2010 Smokeless tobacco: Never Vaping Use Vaping status: current everyday user Substances: Nicotine Substance Use Topics Alcohol use: No Drug use: Not Currently Comment: Yodit, faratrent at today's visit 03/16/2017 Current Outpatient Medications Medication Sig valACYclovir (VALTREX) 1 gram tablet Take 1 tablet by mouth three times a day for 7 days. for 7 days omeprazole (PRILOSEC) 20 mg capsule Take 1 capsule by mouth once daily for 14 days. buprenorphine ER (SUBLOCADE) 100 mg/0.5 mL injection Inject 100 mg subcutaneously one time only. (Patient not taking: Reported on 08/17/2023) No current facility-administered medications for this visit. ALLERGIES Allergen Reactions Benadryl [Diphenhyd* Other: See Comments Hyper/anxiety Clindamycin Rash Rash and facial swelling Penicillins Rash Video Exam (Examination performed via Video enabled technology) General appearance: Alert, oriented, pleasant, in NAD :Yes Ill appearing :No Lethargic appearing :No Respiratory distress :No Abdomen: non-tender by self palpation CVA Tenderness: non-tender bilaterally by self palpation -I have reviewed and updated with the patient: allergies, VS, current medications, Past Medical History,Past Surgical History, Past Social History. [facility] 07/31/2023 ASSESSMENT/PLAN: 1. Genital herpes simplex, unspecified site - ICD9: 054.10, ICD10: A60.00 - I will go ahead and send antiviral to the pharmacy, but we did discuss that it is likely too late for best efficacy. Discussed that if this does not seem to be helpful and her condition persists, she will need to see her [employer] specifically. Reviewed signs and symptoms that would warrant further evaluation with PCP vs emergently with ER. Patient states understanding and compliance - VALACYCLOVIR 1 GRAM TABLET Alyx Beckwith APRN.CNPOhiohealth01-18-2025 History of Present illness Narrative* Alyx Beckwith APRN.EDILBERTO - 05/24/2024 2:24 PM EST Telemedicine Visit - Distance Health Virtual Visit Note Patient seen on [employer] Video Visit platform. Location of patient: [place] I have communicated my name and active licensure. The patient's identity and physical location wereverified at the time of this visit. Either the patient or their legal hotel services sales representative has been informed of the risks and benefits of -- and alternatives to -- treatment through a remote evaluation andconsents to proceed with the evaluation remotely. History of Present Illness Reji Lorenzo is a 28 year old female who presents for complaint of genital herpes lesions that have been present x 1 week. SHe has a known history of genital herpes and is concerned because it just isnt 'going away' . She cannot remember the last time she had an outbreak. Denies any other somatic complaints Vaginitis ROS: Symptoms include: Positive for: none and lesions Predisposing factors: None Hx of previous vaginitis: yes, hsv PAST MEDICAL HISTORY Diagnosis Date ADHD (attention deficit hyperactivity disorder) Anemia complicating 12/31/2014 Anxiety Bipolar disorder (HCC) Chlamydia Chronic active hepatitis (HCC) 03/01/2022 Depression Depression 03/17/2014 fracture 11 years old collarbone Fracture age 7 left leg Hepatitis C Herpes simplex without mention of complication History of bleeding ulcers History of heroin use Ovarian cyst PID (acute pelvic inflammatory disease) Polysubstance abuse (HCC) Cocaine, heroin, benzos, methamphetamines Seizure (HCC) 03/01/2022 PAST SURGICAL HISTORY Procedure Laterality Date DELIVERY ONLY 04/16/2018 C/S low transverse ESOPHAGOGASTRODUODENOSCOPY TRANSORAL DIAGNOSTIC 06/08/2014 EGD LAPS SURG CHOLECYSTECTOMY W/CHOLANGIOGRAPHY 03/06/2022 PAST SURGICAL HISTORY OF 09/21/2021 fallopian tubes removed FAMILY HISTORY Problem Relation Age of Onset Alcohol/Drug Mother Alcohol/Drug Father Seizures Sister other (SIDS) Brother Breast Cancer Maternal Grandmother Cancer Paternal Grandmother Lymphoma Cancer Paternal Grandfather Diabetes Paternal Grandfather Paternal/Materal sides Social History Tobacco Use Smoking status: Every Day Current packs/day: 1.00 Average packs/day: 1 pack/day for 14.2 years (14.2 ttl pk-yrs) Types: Cigarettes Start date: 03/17/2010 Smokeless tobacco: Never Vaping Use Vaping status: current everyday user Substances: Nicotine Substance Use Topics Alcohol use: No Drug use: Not Currently Comment: Heroine, denies at today's visit 03/16/2017 Current Outpatient Medications Medication Sig valACYclovir (VALTREX) 1 gram tablet Take 1 tablet by mouth three times a day for 7 days. for 7 days omeprazole (PRILOSEC) 20 mg capsule Take 1 capsule by mouth once daily for 14 days. buprenorphine ER (SUBLOCADE) 100 mg/0.5 mL injection Inject 100 mg subcutaneously one time only. (Patient not taking: Reported on 08/17/2023) No current facility-administered medications for this visit. ALLERGIES Allergen Reactions Benadryl [Diphenhyd* Other: See Comments Hyper/anxiety Clindamycin Rash Rash and facial swelling Penicillins Rash Video Exam (Examination performed via Video enabled technology) General appearance: Alert, oriented, pleasant, in NAD :Yes Ill appearing :No Lethargic appearing :No Respiratory distress :No Abdomen: non-tender by self palpation CVA Tenderness: non-tender bilaterally by self palpation -I have reviewed and updated with the patient: allergies, VS, current medications, Past Medical History,Past Surgical History, Past Social History. LMP 07/31/2023 ASSESSMENT/PLAN: 1. Genital herpes simplex, unspecified site - ICD9: 054.10, ICD10: A60.00 - I will go ahead and send antiviral to the pharmacy, but we did discuss that it is likely too latefor best efficacy. Discussed that if this does not seem to be helpful and her condition persists, she will need to see her [employer] specifically. Reviewed signs and symptoms that would warrant further evaluation with PCP vs emergently with ER. Patient states understanding and compliance - VALACYCLOVIR 1 GRAM TABLET Alyx Beckwith APRN.CNP documented in this encounterUniversity [facility]12-[facility]24 Telephone encounter Note * Telephone Encounter - Mallory Sevilla RN - 04/17/2024 4:55 PM EST Pt called and is notified of providers message and instructions. Pt voices understanding. Mallory Sevilla RN [facility]12-12-2024 Miscellaneous Notes* Telephone Encounter - Mallory Sevilla RN - 04/17/2024 4:55 PM EST Pt called and is notified of providers message and instructions. Pt voices understanding. Mallory Sevilla RN * Telephone Encounter - Alicia Herrera APRN.CNP - 04/17/2024 4:51 PM EST Ordered 15 day supply * Telephone Encounter - Shawnee Espinosa LPN - 04/17/2024 3:16 PM EST Patient calling again to check on status of request. States she really needs medication sent to thepharmacy. PCP is gone for the day. Please advise. * Telephone Encounter - Agatha Acosta RN - 04/17/2024 2:59 PM EST Patient reports she was prescribed Zofran via Virtual TeleHealth visit she had on 04/08/24. Reports she has an appt with [facility] on Sunday04/20/24. She is asking if PCP would send in a small additional supply of Zofran, such as even if it's 2 pills, to last her until her Gastro appt on Sunday. She states she will most likely run out over the weekend. Pended. Please call patient with reply. [phone]. Thank you. documented in this encounterUniversity [facility]als [facility]12-12-2024 Telephone encounter Note * Telephone Encounter - Alicia Herrera APRN.CNP - 04/17/2024 4:51 PM EST Ordered 15 day supply [facility]12-12-2024 Telephone encounter Note* Telephone Encounter - Shawnee Espinosa LPN - 04/17/2024 3:16 PM EST Patient calling again to check on status of request. States she really needs medication sent to thepharmacy. PCP is gone for the day. Please advise. [facility]12-12-2024 Telephone encounter Note* Telephone Encounter - Agatha Acosta RN - 04/17/2024 2:59 PM EST Patient reports she was prescribed Zofran via Virtual TeleHealth visit she had on 04/08/24. Reports she has an appt with [facility] on Sunday04/20/24. She is asking if PCP would send in a small additional supply of Zofran, such as even if it's 2 pills, to last her until her Gastro appt on Sunday. She states she will most likely run out over the weekend. Pended. Please call patient with reply. [phone]. Thank you. [facility]12-03-2024 NoteHNO ID: [id number] Author: GERALD CHRISTOPHER APRN.MANAGER PROVIDER RELATIONS Service: ? Author Type: Nurse Practitioner Type: Progress Notes Filed: 04/08/2024 11:43 Note Text: Telemedicine Visit - Digital Health Virtual Visit Note Patient seen on [employer] Video Visit platform. Location of patient: [place] I have communicated my name and active licensure. The patient's identity and physical location were verified at the time of this visit. Either the patient or their legal hotel services sales representative has been informed of the risks and benefits of -- and alternatives to -- treatment through a remote evaluation and consents to proceed with the evaluation remotely. History of Present Illness Reji Lorenzo is a 28 year old female who presents for the past today with symptoms of persistent Symptoms include:Positive for Nausea, Emesis, and Diarrhea and Negative for Blood in Stool, Abdominal Pain, Cramping, Fever , Chills/Sweats, Headache, Irritability, Dizziness, Fatigue, Lethargy, Urinary Symptoms, and Myalgias No history of gastrointestinal disease. No known risk factors for parasitic or bacterial infection. Oral intake: decreased3 Sick contacts: yes, but not with the same symptoms Recent travel: no Recent Antibiotic use: 2 months ago Recent Hospitalization: no Number and description of stool: > 3, no blood or mucus Number and description of emesis: 3 OTC meds/remedies that patient has tried: none. Requesting something for nausea. Reports long history of intestinal disease since she was 16 years old. She is on famotidine, but it does not help. Was told to follow up with GI but has not PAST MEDICAL HISTORY Diagnosis Date ADHD (attention deficit hyperactivity disorder) Anemia complicating 12/31/2014 Anxiety Bipolar disorder (HCC) Chlamydia Chronic active hepatitis (HCC) 03/01/2022 Depression Depression 03/17/2014 fracture 11 years old collarbone Fracture age 7 left leg Hepatitis C Herpes simplex without mention of complication History of bleeding ulcers History of heroin use Ovarian cyst PID (acute pelvic inflammatory disease) Polysubstance abuse (HCC) Cocaine, heroin, benzos, methamphetamines Seizure (HCC) 03/01/2022 PAST SURGICAL HISTORY Procedure Laterality Date DELIVERY ONLY 04/16/2018 C/S low transverse ESOPHAGOGASTRODUODENOSCOPY TRANSORAL DIAGNOSTIC 06/08/2014 EGD LAPS SURG CHOLECYSTECTOMY W/CHOLANGIOGRAPHY 03/06/2022 PAST SURGICAL HISTORY OF 09/21/2021 fallopian tubes removed FAMILY HISTORY Problem Relation Age of Onset Alcohol/Drug Mother Alcohol/Drug Father Seizures Sister other (SIDS) Brother Breast Cancer Maternal Grandmother Cancer Paternal Grandmother Lymphoma Cancer Paternal Grandfather Diabetes Paternal Grandfather Paternal/Materal sides Social History Tobacco Use Smoking status: Every Day Current packs/day: 1.00 Average packs/day: 1 pack/day for 14.1 years (14.1 ttl pk-yrs) Types: Cigarettes Start date: 03/17/2010 Smokeless tobacco: Never Vaping Use Vaping status: current everyday user Substances: Nicotine Substance Use Topics Alcohol use: No Drug use: Not Currently Comment: kirill Monsviais at today's visit 03/16/2017 Current Outpatient Medications Medication Sig ondansetron orally disintegrating (ZOFRAN ODT) 8 mg disintegrating tablet Take 1 tablet by mouth every 8 hours as needed for nausea/vomiting. omeprazole (PRILOSEC) 20 mg capsule Take 1 capsule by mouth once daily for 14 days. buprenorphine ER (SUBLOCADE) 100 mg/0.5 mL injection Inject 100 mg subcutaneously one time only. (Patient not taking: Reported on 08/17/2023) No current facility-administered medications for this visit. ALLERGIES Allergen Reactions Benadryl [Diphenhyd* Other: See Comments Hyper/anxiety Clindamycin Rash Rash and facial swelling Penicillins Rash Video Exam (Examination performed via Video enabled technology) General appearance: Alert, oriented, pleasant, in NAD :Yes Ill appearing :No Lethargic appearing :No Hydration: Appears Hydrated Oropharynx:Mucus membranes appears moist Skin: Turgor <3 seconds Respiratory distress :No Abdomen inspection: Distended: No, Tenderness to self-palpation: slight above the umbilicus ASSESSMENT/PLAN: Bilious vomiting with nausea (primary encounter diagnosis) - Symptomatic treatment: Zofran prn - Consulted GI- reinforced the need to establish an appointment. - Clear liquids in frequent, small amounts - BRAT diet (bananas, rice, applesauce, toast) advance diet as tolerated. Avoid dairy products - Handwashing - Recheck prn persistence, worsening, appearance of new symptoms. - Red flags discussed for need for in person care - All questions answered Gerald Christopher APRN.CNPOhiohealth12-03-2024 History of Present illness Narrative* Gerald Christopher APRN.MANAGER PROVIDER RELATIONS - 04/08/2024 11:33 AM EST Telemedicine Visit - Digital Health Virtual Visit Note Patient seen on [employer] Video Visit platform. Location of patient: [place] I have communicated my name and active licensure. The patient's identity and physical location wereverified at the time of this visit. Either the patient or their legal hotel services sales representative has been informed of the risks and benefits of -- and alternatives to -- treatment through a remote evaluation andconsents to proceed with the evaluation remotely. History of Present Illness Reji Lorenzo is a 28 year old female who presents for the past today with symptoms of persistent Symptoms include:Positive for Nausea, Emesis, and Diarrhea and Negative for Blood in Stool, Abdominal Pain, Cramping, Fever , Chills/Sweats, Headache, Irritability, Dizziness, Fatigue, Lethargy, Urinary Symptoms, and Myalgias No history of gastrointestinal disease. No known risk factors for parasitic or bacterial infection. Oral intake: decreased3 Sick contacts: yes, but not with the same symptoms Recent travel: no Recent Antibiotic use: 2 months ago Recent Hospitalization: no Number and description of stool: > 3, no blood or mucus Number and description of emesis: 3 OTC meds/remedies that patient has tried: none. Requesting something for nausea. Reports long history of intestinal disease since she was 16 years old. She is on famotidine, but itdoes not help. Was told to follow up with GI but has not PAST MEDICAL HISTORY Diagnosis Date ADHD (attention deficit hyperactivity disorder) Anemia complicating 12/31/2014 Anxiety Bipolar disorder (HCC) Chlamydia Chronic active hepatitis (HCC) 03/01/2022 Depression Depression 03/17/2014 fracture 11 years old collarbone Fracture age 7 left leg Hepatitis C Herpes simplex without mention of complication History of bleeding ulcers History of heroin use Ovarian cyst PID (acute pelvic inflammatory disease) Polysubstance abuse (HCC) Cocaine, heroin, benzos, methamphetamines Seizure (HCC) 03/01/2022 PAST SURGICAL HISTORY Procedure Laterality Date DELIVERY ONLY 04/16/2018 C/S low transverse ESOPHAGOGASTRODUODENOSCOPY TRANSORAL DIAGNOSTIC 06/08/2014 EGD LAPS SURG CHOLECYSTECTOMY W/CHOLANGIOGRAPHY 03/06/2022 PAST SURGICAL HISTORY OF 09/21/2021 fallopian tubes removed FAMILY HISTORY Problem Relation Age of Onset Alcohol/Drug Mother Alcohol/Drug Father Seizures Sister other (SIDS) Brother Breast Cancer Maternal Grandmother Cancer Paternal Grandmother Lymphoma Cancer Paternal Grandfather Diabetes Paternal Grandfather Paternal/Materal sides Social History Tobacco Use Smoking status: Every Day Current packs/day: 1.00 Average packs/day: 1 pack/day for 14.1 years (14.1 ttl pk-yrs) Types: Cigarettes Start date: 03/17/2010 Smokeless tobacco: Never Vaping Use Vaping status: current everyday user Substances: Nicotine Substance Use Topics Alcohol use: No Drug use: Not Currently Comment: kirill Monsivais at today's visit 03/16/2017 Current Outpatient Medications Medication Sig ondansetron orally disintegrating (ZOFRAN ODT) 8 mg disintegrating tablet Take 1 tablet by mouth every 8 hours as needed for nausea/vomiting. omeprazole (PRILOSEC) 20 mg capsule Take 1 capsule by mouth once daily for 14 days. buprenorphine ER (SUBLOCADE) 100 mg/0.5 mL injection Inject 100 mg subcutaneously one time only. (Patient not taking: Reported on 08/17/2023) No current facility-administered medications for this visit. ALLERGIES Allergen Reactions Benadryl [Diphenhyd* Other: See Comments Hyper/anxiety Clindamycin Rash Rash and facial swelling Penicillins Rash Video Exam (Examination performed via Video enabled technology) General appearance: Alert, oriented, pleasant, in NAD :Yes Ill appearing :No Lethargic appearing :No Hydration: Appears Hydrated Oropharynx:Mucus membranes appears moist Skin: Turgor <3 seconds Respiratory distress :No Abdomen inspection: Distended: No, Tenderness to self-palpation: slight above the umbilicus ASSESSMENT/PLAN: Bilious vomiting with nausea (primary encounter diagnosis) - Symptomatic treatment: Zofran prn - Consulted GI- reinforced the need to establish an appointment. - Clear liquids in frequent, small amounts - BRAT diet (bananas, rice, applesauce, toast) advance diet as tolerated. Avoid dairy products - Handwashing - Recheck prn persistence, worsening, appearance of new symptoms. - Red flags discussed for need for in person care - All questions answered Gerald Christopher APRN.EDILBERTO documented in this encounterUniversity [facility]als [facility]11-12-2024 NoteHNO ID: [id number] Author: KATY RUBIO APRN.EDILBERTO Service: ? Author Type: Nurse Practitioner Type: Progress Notes Filed: 03/18/2024 12:15 Note Text: Telemedicine Visit - Digital Health Virtual Visit Note Patient seen on [employer] Video Visit platform. Location of patient: [place] I have communicated my name and active licensure. The patient's identity and physical location were verified at the time of this visit. Either the patient or their legal hotel services sales representative has been informed of the risks and benefits of -- and alternatives to -- treatment through a remote evaluation and consents to proceed with the evaluation remotely. History of Present Illness Reji J Lorenzo is a 28 year old female who presents for the past 1 day(s) with symptoms of vomiting that are: Constant. Patient was seen at the dentist and started on oral ABX therapy for a tooth infection. ABXs are causing severe nausea. Symptoms include:Positive for Nausea, Emesis, Cramping, Chills/Sweats, and Headache and Negative for Diarrhea , Blood in Stool, Abdominal Pain, Irritability, Dizziness, Urinary Symptoms, and Myalgias No history of gastrointestinal disease. No known risk factors for parasitic or bacterial infection. Oral intake: eating and drinking Sick contacts: no Recent travel: no Recent Antibiotic use: yes Recent Hospitalization: no Number and description of stool: normal Number and description of emesis: 6 times OTC meds/remedies that patient has tried: nothing PAST MEDICAL HISTORY Diagnosis Date ADHD (attention deficit hyperactivity disorder) Anemia complicating 12/31/2014 Anxiety Bipolar disorder (HCC) Chlamydia Chronic active hepatitis (HCC) 03/01/2022 Depression Depression 03/17/2014 fracture 11 years old collarbone Fracture age 7 left leg Hepatitis C Herpes simplex without mention of complication History of bleeding ulcers History of heroin use Ovarian cyst PID (acute pelvic inflammatory disease) Polysubstance abuse (HCC) Cocaine, heroin, benzos, methamphetamines Seizure (HCC) 03/01/2022 PAST SURGICAL HISTORY Procedure Laterality Date DELIVERY ONLY 04/16/2018 C/S low transverse ESOPHAGOGASTRODUODENOSCOPY TRANSORAL DIAGNOSTIC 06/08/2014 EGD LAPS SURG CHOLECYSTECTOMY W/CHOLANGIOGRAPHY 03/06/2022 PAST SURGICAL HISTORY OF 09/21/2021 fallopian tubes removed FAMILY HISTORY Problem Relation Age of Onset Alcohol/Drug Mother Alcohol/Drug Father Seizures Sister other (SIDS) Brother Breast Cancer Maternal Grandmother Cancer Paternal Grandmother Lymphoma Cancer Paternal Grandfather Diabetes Paternal Grandfather Paternal/Materal sides Social History Tobacco Use Smoking status: Every Day Current packs/day: 1.00 Average packs/day: 1 pack/day for 14.0 years (14.0 ttl pk-yrs) Types: Cigarettes Start date: 03/17/2010 Smokeless tobacco: Never Vaping Use Vaping status: current everyday user Substances: Nicotine Substance Use Topics Alcohol use: No Drug use: Not Currently Comment: kirill Monsivais at today's visit 03/16/2017 Current Outpatient Medications Medication Sig omeprazole (PRILOSEC) 20 mg capsule Take 1 capsule by mouth once daily for 14 days. buprenorphine ER (SUBLOCADE) 100 mg/0.5 mL injection Inject 100 mg subcutaneously one time only. (Patient not taking: Reported on 08/17/2023) No current facility-administered medications for this visit. ALLERGIES Allergen Reactions Benadryl [Diphenhyd* Other: See Comments Hyper/anxiety Clindamycin Rash Rash and facial swelling Penicillins Rash Video Exam (Examination performed via Video enabled technology) General appearance: Alert, oriented, pleasant, in NAD :Yes Ill appearing :No Lethargic appearing :No Hydration: Appears Hydrated Oropharynx:Mucus membranes appears moist Skin: Turgor <3 seconds Respiratory distress :No Abdomen inspection: Distended: No, Tenderness to self-palpation: No ASSESSMENT/PLAN: 1. Nausea - ICD9: 787.02, ICD10: R11.0 - Zofran as needed - Clear liquids in frequent, small amounts - BRAT diet (bananas, rice, applesauce, toast) advance diet as tolerated. Avoid dairy products - Handwashing - Recheck prn persistence, worsening, appearance of new symptoms. - Red flags discussed for need for in person care - All questions answered Katy Rubio APRN.[facility]11-12-2024 History of Present illness Narrative* Katy Rubio APRN.[facility] - 03/18/2024 11:54 AM EST Telemedicine Visit - Digital Health Virtual Visit Note Patient seen on [employer] Video Visit platform. Location of patient: [place] I have communicated my name and active licensure. The patient's identity and physical location wereverified at the time of this visit. Either the patient or their legal hotel services sales representative has been informed of the risks and benefits of -- and alternatives to -- treatment through a remote evaluation andconsents to proceed with the evaluation remotely. History of Present Illness Reji Lorenzo is a 28 year old female who presents for the past 1 day(s) with symptoms of vomiting that are: Constant. Patient was seen at the dentist and started on oral ABX therapy for a tooth infection. ABXs are causing severe nausea. Symptoms include:Positive for Nausea, Emesis, Cramping, Chills/Sweats, and Headache and Negative for Diarrhea , Blood in Stool, Abdominal Pain, Irritability, Dizziness, Urinary Symptoms, and Myalgias No history of gastrointestinal disease. No known risk factors for parasitic or bacterial infection. Oral intake: eating and drinking Sick contacts: no Recent travel: no Recent Antibiotic use: yes Recent Hospitalization: no Number and description of stool: normal Number and description of emesis: 6 times OTC meds/remedies that patient has tried: nothing PAST MEDICAL HISTORY Diagnosis Date ADHD (attention deficit hyperactivity disorder) Anemia complicating 12/31/2014 Anxiety Bipolar disorder (HCC) Chlamydia Chronic active hepatitis (HCC) 03/01/2022 Depression Depression 03/17/2014 fracture 11 years old collarbone Fracture age 7 left leg Hepatitis C Herpes simplex without mention of complication History of bleeding ulcers History of heroin use Ovarian cyst PID (acute pelvic inflammatory disease) Polysubstance abuse (HCC) Cocaine, heroin, benzos, methamphetamines Seizure (HCC) 03/01/2022 PAST SURGICAL HISTORY Procedure Laterality Date DELIVERY ONLY 04/16/2018 C/S low transverse ESOPHAGOGASTRODUODENOSCOPY TRANSORAL DIAGNOSTIC 06/08/2014 EGD LAPS SURG CHOLECYSTECTOMY W/CHOLANGIOGRAPHY 03/06/2022 PAST SURGICAL HISTORY OF 09/21/2021 fallopian tubes removed FAMILY HISTORY Problem Relation Age of Onset Alcohol/Drug Mother Alcohol/Drug Father Seizures Sister other (SIDS) Brother Breast Cancer Maternal Grandmother Cancer Paternal Grandmother Lymphoma Cancer Paternal Grandfather Diabetes Paternal Grandfather Paternal/Materal sides Social History Tobacco Use Smoking status: Every Day Current packs/day: 1.00 Average packs/day: 1 pack/day for 14.0 years (14.0 ttl pk-yrs) Types: Cigarettes Start date: 03/17/2010 Smokeless tobacco: Never Vaping Use Vaping status: current everyday user Substances: Nicotine Substance Use Topics Alcohol use: No Drug use: Not Currently Comment: kirill Monsivais at today's visit 03/16/2017 Current Outpatient Medications Medication Sig omeprazole (PRILOSEC) 20 mg capsule Take 1 capsule by mouth once daily for 14 days. buprenorphine ER (SUBLOCADE) 100 mg/0.5 mL injection Inject 100 mg subcutaneously one time only. (Patient not taking: Reported on 08/17/2023) No current facility-administered medications for this visit. ALLERGIES Allergen Reactions Benadryl [Diphenhyd* Other: See Comments Hyper/anxiety Clindamycin Rash Rash and facial swelling Penicillins Rash Video Exam (Examination performed via Video enabled technology) General appearance: Alert, oriented, pleasant, in NAD :Yes Ill appearing :No Lethargic appearing :No Hydration: Appears Hydrated Oropharynx:Mucus membranes appears moist Skin: Turgor <3 seconds Respiratory distress :No Abdomen inspection: Distended: No, Tenderness to self-palpation: No ASSESSMENT/PLAN: 1. Nausea - ICD9: 787.02, ICD10: R11.0 - Zofran as needed - Clear liquids in frequent, small amounts - BRAT diet (bananas, rice, applesauce, toast) advance diet as tolerated. Avoid dairy products - Handwashing - Recheck prn persistence, worsening, appearance of new symptoms. - Red flags discussed for need for in person care - All questions answered Katy Rubio APRN.MANAGER PROVIDER RELATIONS documented in this encounterUniversity Hospitals Cleveland Medical Center10-28-2024 Instructions* Patient Instructions* Patricia Suggs APRN.MANAGER PROVIDER RELATIONS - 03/03/2024 6:25 PM EDT Dental Care Services Here are low cost places you can go for dental care: [facility] [id number] [place] [address] [phone] Services:Extractions only- No wisdom teeth Hours: - 4:15 P.M. Fee: Free- Donations are accepted [facility] [address]) Services: Health history, exam, cleaning, X-Rays, patient education and nutritional counseling. Hours: Varies with the school year. By appointment only. Fee: Over 12 years of age, $10.00; Under 12 year of age $6.00 [facility] [address] [facility]): [phone] [facility]): [phone] (Note: [facility] are the only [facility] which offer dental services) Services: Full dental services Hours: 8:30 a.m. to 5:30 p.m., Sunday through Sunday. By appointment. Fee: [place]es and Medicaid. Bring ID and proof of income. [facility] [address] [phone]. [phone]) Services: Full dental services. Hours: By appointment only. Fee: [place] and Medicaid. Bring ID and proof of income. [facility] [address] [phone] Services: Full dental services. Hours: 8:15 a.m.- 5:00 p.m. By appointment only. Fee: Flat fee. Medicaid and insurances. Bring ID and proof of income. [facility]: By main entrance of [facility] [phone] Services: Full dental services. Hours:Varies with school year. Call for appointment. Fee: Flat fee. Medicaid and insurances. Bring ID and proof of income. [facility] [address] (Between [place] and [place]) [phone] Services: Full dental services. Hours: 8:30 a.m.-4:00 p.m. Sunday through Sunday. Appointments recommended. Emergency walk ins- 8:30 a.m.- 11:15 a.m. and 2:00 p.m-3:15 p.m. Fee: [place] and Medicaid. Bring ID and proof of income. [facility] [address] [phone] Services: Full dental services. Hours: 9:00 a.m.-4:45 p.m. Sunday through Sunday. Appointments and emergency walk in. Fee: [place] and Medicaid. Bring ID and proof of income. documented in this encounterUniversity Hospitals Cleveland Medical Center10-28-2024 NoteHNO ID: [id number] Author: PATRICIA SUGGS APRN.CNP Service: ? Author Type: Nurse Practitioner Type: Progress Notes Filed: 03/03/2024 18:25 Note Text: Telemedicine Visit - Distance Health Virtual Visit Note Patient seen on [employer] Video Visit platform. Location of patient: [place] Celi Murray MD I have communicated my name and active licensure. The patient's identity and physical location were verified at the time of this visit. Either the patient or their legal hotel services sales representative has been informed of the risks and benefits of -- and alternatives to -- treatment through a remote evaluation and consents to proceed with the evaluation remotely. History of Present Illness Reji Lorenzo is a 28 year old year old female who presents for the past 4 day(s) with symptoms that are: Worsening COLD SXS FOR A FEW DAYS BUT HAVING TERRIBLE TOOTH PAIN CRACKED TOOTH- HAPPENED WEEKS AGO- PAIN FALRED UP IN THE LAST 4 DAY HAS A DENTAL APPT 03/17. DENIES FEVER, CHILLS TRIED SALT RINSES AND PEROXIDE RINSE, IBUPROFEN, ORAJEL AND NAPROXEN BROKEN MOLAR OF BOTTOM LEFT SIDE OF JAW STS SOME SWELLING TO THE GUMS +SMOKER PAST MEDICAL HISTORY Diagnosis Date ADHD (attention deficit hyperactivity disorder) Anemia complicating 12/31/2014 Anxiety Bipolar disorder (HCC) Chlamydia Chronic active hepatitis (HCC) 03/01/2022 Depression Depression 03/17/2014 fracture 11 years old collarbone Fracture age 7 left leg Hepatitis C Herpes simplex without mention of complication History of bleeding ulcers History of heroin use Ovarian cyst PID (acute pelvic inflammatory disease) Polysubstance abuse (HCC) Cocaine, heroin, benzos, methamphetamines Seizure (HCC) 03/01/2022 PAST SURGICAL HISTORY Procedure Laterality Date DELIVERY ONLY 04/16/2018 C/S low transverse ESOPHAGOGASTRODUODENOSCOPY TRANSORAL DIAGNOSTIC 06/08/2014 EGD LAPS SURG CHOLECYSTECTOMY W/CHOLANGIOGRAPHY 03/06/2022 PAST SURGICAL HISTORY OF 09/21/2021 fallopian tubes removed FAMILY HISTORY Problem Relation Age of Onset Alcohol/Drug Mother Alcohol/Drug Father Seizures Sister other (SIDS) Brother Breast Cancer Maternal Grandmother Cancer Paternal Grandmother Lymphoma Cancer Paternal Grandfather Diabetes Paternal Grandfather Paternal/Materal sides Social History Tobacco Use Smoking status: Every Day Current packs/day: 1.00 Average packs/day: 1 pack/day for 14.0 years (14.0 ttl pk-yrs) Types: Cigarettes Start date: 03/17/2010 Smokeless tobacco: Never Vaping Use Vaping status: current everyday user Substances: Nicotine Substance Use Topics Alcohol use: No Drug use: Not Currently Comment: Heroine, denies at today's visit 03/16/2017 Current Outpatient Medications Medication Sig omeprazole (PRILOSEC) 20 mg capsule Take 1 capsule by mouth once daily for 14 days. buprenorphine ER (SUBLOCADE) 100 mg/0.5 mL injection Inject 100 mg subcutaneously one time only. (Patient not taking: Reported on 08/17/2023) No current facility-administered medications for this visit. ALLERGIES Allergen Reactions Benadryl [Diphenhyd* Other: See Comments Hyper/anxiety Clindamycin Rash Rash and facial swelling Penicillins Rash Video Exam (Examination performed via Video enabled technology) General appearance: Alert, oriented, pleasant, in NAD :Yes Ill appearing :No Lethargic appearing :No Respiratory distress :No HARD TO VISUAL via video ASSESSMENT/PLAN: 1. Dental infection - ICD9: 522.4, ICD10: K04.7 (primary diagnosis) - CEPHALEXIN 500 MG CAPSULE 2. Tooth pain - ICD9: 525.9, ICD10: K08.89 - IBUPROFEN 600 MG TABLET FOLLOW UP W/ DENTIST SCHEDULED ADVISED SMOKING CESSATION IF YOUR SYMPTOMS PERSIST OR WORSENING IN THE NEXT 10 DAYS THEN PLEASE FOLLOW UP WITH YOUR PCP PLAN: - Red flags discussed for need for in person care - All questions answered Patricia Suggs, MSN, MANAGER TRANSPORTATION-MANAGER PROVIDER RELATIONS, [facility] [place] [facility] History of Present illness Narrative* Patricia Suggs APRN.MANAGER PROVIDER RELATIONS - 03/03/2024 6:14 PM EDT Telemedicine Visit - Distance Health Virtual Visit Note Patient seen on [employer] Video Visit platform. Location of patient: [place] Celi Murray MD I have communicated my name and active licensure. The patient's identity and physical location wereverified at the time of this visit. Either the patient or their legal hotel services sales representative has been informed of the risks and benefits of -- and alternatives to -- treatment through a remote evaluation andconsents to proceed with the evaluation remotely. History of Present Illness Reji Lorenzo is a 28 year old year old female who presents for the past 4 day(s) with symptoms that are: Worsening COLD SXS FOR A FEW DAYS BUT HAVING TERRIBLE TOOTH PAIN CRACKED TOOTH- HAPPENED WEEKS AGO- PAIN FALRED UP IN THE LAST 4 DAY HAS A DENTAL APPT 03/17. DENIES FEVER, CHILLS TRIED SALT RINSES AND PEROXIDE RINSE, IBUPROFEN, ORAJEL AND NAPROXEN BROKEN MOLAR OF BOTTOM LEFT SIDE OF JAW STS SOME SWELLING TO THE GUMS +SMOKER PAST MEDICAL HISTORY Diagnosis Date ADHD (attention deficit hyperactivity disorder) Anemia complicating 12/31/2014 Anxiety Bipolar disorder (HCC) Chlamydia Chronic active hepatitis (HCC) 03/01/2022 Depression Depression 03/17/2014 fracture 11 years old collarbone Fracture age 7 left leg Hepatitis C Herpes simplex without mention of complication History of bleeding ulcers History of heroin use Ovarian cyst PID (acute pelvic inflammatory disease) Polysubstance abuse (HCC) Cocaine, heroin, benzos, methamphetamines Seizure (HCC) 03/01/2022 PAST SURGICAL HISTORY Procedure Laterality Date DELIVERY ONLY 04/16/2018 C/S low transverse ESOPHAGOGASTRODUODENOSCOPY TRANSORAL DIAGNOSTIC 06/08/2014 EGD LAPS SURG CHOLECYSTECTOMY W/CHOLANGIOGRAPHY 03/06/2022 PAST SURGICAL HISTORY OF 09/21/2021 fallopian tubes removed FAMILY HISTORY Problem Relation Age of Onset Alcohol/Drug Mother Alcohol/Drug Father Seizures Sister other (SIDS) Brother Breast Cancer Maternal Grandmother Cancer Paternal Grandmother Lymphoma Cancer Paternal Grandfather Diabetes Paternal Grandfather Paternal/Materal sides Social History Tobacco Use Smoking status: Every Day Current packs/day: 1.00 Average packs/day: 1 pack/day for 14.0 years (14.0 ttl pk-yrs) Types: Cigarettes Start date: 03/17/2010 Smokeless tobacco: Never Vaping Use Vaping status: current everyday user Substances: Nicotine Substance Use Topics Alcohol use: No Drug use: Not Currently Comment: kirill Monsivais at today's visit 03/16/2017 Current Outpatient Medications Medication Sig omeprazole (PRILOSEC) 20 mg capsule Take 1 capsule by mouth once daily for 14 days. buprenorphine ER (SUBLOCADE) 100 mg/0.5 mL injection Inject 100 mg subcutaneously one time only. (Patient not taking: Reported on 08/17/2023) No current facility-administered medications for this visit. ALLERGIES Allergen Reactions Benadryl [Diphenhyd* Other: See Comments Hyper/anxiety Clindamycin Rash Rash and facial swelling Penicillins Rash Video Exam (Examination performed via Video enabled technology) General appearance: Alert, oriented, pleasant, in NAD :Yes Ill appearing :No Lethargic appearing :No Respiratory distress :No HARD TO VISUAL via video ASSESSMENT/PLAN: 1. Dental infection - ICD9: 522.4, ICD10: K04.7 (primary diagnosis) - CEPHALEXIN 500 MG CAPSULE 2. Tooth pain - ICD9: 525.9, ICD10: K08.89 - IBUPROFEN 600 MG TABLET FOLLOW UP W/ DENTIST SCHEDULED ADVISED SMOKING CESSATION IF YOUR SYMPTOMS PERSIST OR WORSENING IN THE NEXT 10 DAYS THEN PLEASE FOLLOW UP WITH YOUR PCP PLAN: - Red flags discussed for need for in person care - All questions answered Patricia Suggs, MSN, MANAGER TRANSPORTATION-EDILBERTO, [facility] [place] documented in this encounterUniversity Hospitals Cleveland Medical Center09-19-2024 NoteHNO ID: [id number] Author: CHRISTIANA ALEGRE APRN.CNP Service: ? Author Type: Nurse Practitioner Type: Progress Notes Filed: 01/24/2024 19:35 Note Text: This note was created using NoteWriter. Subjective Reji Lorenzo is a 28 year old female. HPI Pt has a history of GERD and gastric ulcers. She had been taking prilosec but has run out. She states that her symptoms are worsening again and when like to once again started on Prilosec. She otherwise denies any abdominal pain or vomiting. Review of Systems Constitutional: Negative for fever. Gastrointestinal: Positive for nausea. Negative for abdominal pain and vomiting. Objective BP 108/63 Pulse (!) 55 Temp 36.3 ?C (97.3 ?F) Resp 18 Wt 64.1 kg (141 lb 5 oz) LMP 07/31/2023 (Approximate) SpO2 100% BMI 25.85 kg/m? Physical Exam Vitals and nursing note reviewed. Constitutional: General: She is not in acute distress. Appearance: Normal appearance. She is not ill-appearing. HENT: Head: Normocephalic. Mouth/Throat: Mouth: Mucous membranes are moist. Eyes: Conjunctiva/sclera: Conjunctivae normal. Cardiovascular: Rate and Rhythm: Normal rate and regular rhythm. Pulmonary: Effort: Pulmonary effort is normal. Breath sounds: Normal breath sounds. Abdominal: Palpations: Abdomen is soft. Tenderness: There is no abdominal tenderness. Musculoskeletal: General: Normal range of motion. Cervical back: Normal range of motion. Skin: General: Skin is warm and dry. Neurological: General: No focal deficit present. Mental Status: She is alert. Psychiatric: Mood and Affect: Mood normal. Behavior: Behavior normal. Assessment and Plan ASSESSMENT/PLAN: 1. Nausea - ICD9: 787.02, ICD10: R11.0 Patient given a refill of her Prilosec and instructed to follow-up with PCP, Dr. Murray for further evaluation and monitoring. Patient understands and is agreeable. - OMEPRAZOLE 20 MG CAPSULE,DELAYED RELEASE Christiana Alegre APRN.[facility]09-19-2024 History of Present illness Narrative* Christiana Alegre APRN.MANAGER PROVIDER RELATIONS - 01/24/2024 7:12 PM EDT This note was created using NoteWriter. Subjective Reji Lorenzo is a 28 year old female. HPI Pt has a history of GERD and gastric ulcers. She had been taking prilosec but has run out. She states that her symptoms are worsening again and when like to once again started on Prilosec. She otherwise denies any abdominal pain or vomiting. Review of Systems Constitutional: Negative for fever. Gastrointestinal: Positive for nausea. Negative for abdominal pain and vomiting. Objective BP 108/63 Pulse (!) 55 Temp 36.3 C (97.3 F) Resp 18 Wt 64.1 kg (141 lb 5 oz) LMP 07/31/2023 (Approximate) SpO2 100% BMI 25.85 kg/m Physical Exam Vitals and nursing note reviewed. Constitutional: General: She is not in acute distress. Appearance: Normal appearance. She is not ill-appearing. HENT: Head: Normocephalic. Mouth/Throat: Mouth: Mucous membranes are moist. Eyes: Conjunctiva/sclera: Conjunctivae normal. Cardiovascular: Rate and Rhythm: Normal rate and regular rhythm. Pulmonary: Effort: Pulmonary effort is normal. Breath sounds: Normal breath sounds. Abdominal: Palpations: Abdomen is soft. Tenderness: There is no abdominal tenderness. Musculoskeletal: General: Normal range of motion. Cervical back: Normal range of motion. Skin: General: Skin is warm and dry. Neurological: General: No focal deficit present. Mental Status: She is alert. Psychiatric: Mood and Affect: Mood normal. Behavior: Behavior normal. Assessment and Plan ASSESSMENT/PLAN: 1. Nausea - ICD9: 787.02, ICD10: R11.0 Patient given a refill of her Prilosec and instructed to follow-up with PCP, Dr. Murray for further evaluation and monitoring. Patient understands and is agreeable. - OMEPRAZOLE 20 MG CAPSULE,DELAYED RELEASE Christiana Alegre APRN.CNP documented in this encounterUniversity Hospitals Cleveland Medical Center08-31-2024 Instructions* Patient Instructions* Evi Kaufman APRN.CNP - 01/05/2024 12:44 PM EDT VAGINAL YEAST INFECTION INTRODUCTION Vaginal yeast infections are a common problem in women. Vaginal yeast infections are also called yeast vaginitis or vaginal candidiasis. The most common symptoms of a yeast infection are itching and irritation of the vulva and around the opening of the vagina. Yeast infections occur mainly in women who are menstruating (having monthly periods). They are lesscommon in postmenopausal women who do not take estrogen and in girls who have not yet started menstruating. VAGINAL YEAST INFECTION SYMPTOMS The most common symptoms of a yeast infection include: Itching or irritation of the vulva and around the vaginal opening. Pain with urination, vulvar soreness or irritation, Pain with intercourse Reddened and swollen vulvar and vaginal tissues. Some women have no abnormal vaginal discharge. Others have white clumpy (curd- like) or watery vaginal discharge. Symptoms of a yeast infection are similar to a number of other conditions, including bacterial vaginosis (a bacterial infection of the vagina), trichomoniasis (a sexually transmitted infection), and dermatitis (irritated skin). It is often not possible to know if itching is caused by yeast or other causes. VAGINAL YEAST INFECTION CAUSE The fungus that causes yeast infections (named Gabriela) normally lives in the gastrointestinal tract and sometimes the vagina. Normally, Gabriela causes no symptoms. However, when there are changes inthe normal deana of the gastrointestinal tract and vagina (caused by medicines, injury, or stress to the immune system), Gabriela can overgrow and cause the symptoms described above. VAGINAL YEAST INFECTION RISK FACTORS In most women, there is no underlying health problem that leads to a yeast infection. There are several risk factors that may increase the chances of developing an infection, including: Antibiotics -- Most antibiotics kill a wide variety of bacteria, including those that normally livein the vagina. These bacteria protect the vagina from the overgrowth of yeast. Some women are proneto yeast infections while taking antibiotics. Hormonal contraceptives (eg, control pills, patch, and vaginal ring) -- The risk of yeast infections may be higher in women who use control methods containing estrogen. Contraceptive devices -- Vaginal sponges, diaphragms, and intrauterine devices (IUDs) may increase the risk of yeast infections. Spermicides do not usually cause yeast infections, although they can cause you to have vaginal or vulvar irritation. Weakened immune system -- Yeast infections are more common in people who have a weakened immune system due to HIV or use of certain medications (steroids, chemotherapy, post-organ transplant medications). -- Vaginal discharge becomes more noticeable during , although yeast infection is not always the cause. Diabetes -- Women with diabetes are at higher risk for yeast infections, especially if blood sugar levels are often higher than normal. Sexual activity -- Vaginal yeast infections are not a sexually transmitted infection. They can occur in women who have never been sexually active, but are more common in women who are sexually active. VAGINAL YEAST INFECTION DIAGNOSIS Yeast infections can be diagnosed with an exam. During the exam, your doctor or nurse will examine your vulva and vagina and swab the vagina to get a sample of discharge. Do not begin treatment at home before being examined. Self-diagnosis -- Women with vulvar itching or vaginal discharge often assume that their symptoms are caused by a yeast infection and then use a non- prescription treatment. However, in one study, only 11 percent of women accurately diagnosed their infection; women with a previous yeast infection were only slightly more accurate (35 percent correct). Diagnosing and treating yourself: Wastes money (on non-prescription treatment) Wastes time; you will not feel better until you use the right treatment Can make you more itchy and irritated VAGINAL YEAST INFECTION TREATMENT Treatment of a vaginal yeast infection may include a pill that you take by mouth or a vaginal treatment. Vaginal treatment -- Treatment for a vaginal yeast infection often includes a vaginal cream or tablet. You apply the cream or tablet inside the vagina at bedtime with an applicator. There are prescription and non-prescription treatments, so ask your doctor or nurse which to use. One, three, and seven-day treatments are equally effective. Oral treatment -- A prescription pill called fluconazole (Diflucan ) is another option for treatingyeast infections. Most women only need one dose, although women with more complicated infections (such as those with underlying medical problems, recurrent yeast infections, or severe signs and symptoms) may require a second dose 72 hours (3 days) after the first dose. Side effects of fluconazole are mild and infrequent, but may include stomach upset, headache, and rash. Fluconazole interacts with a number of medications; ask your doctor, nurse, or pharmacist if you have concerns. Fluconazole is not usually recommended during the first trimester of due to the potential risk of harm to the fetus. When will I feel better? -- Most yeast infections go away within a few days after starting treatment. However, you may continue to feel itchy and irritated, even after the infection is gone. If you do not get better within a few days after finishing treatment, call your doctor or nurse for advice. RECURRENT VAGINAL YEAST INFECTIONS Between 5 and 8 percent of women have recurrent yeast infections, defined as more than four infections per year. There is no evidence that eating yogurt or other products containing live Lactobacillus acidophilus, or applying these products to the vagina is of any benefit in women with recurrent vaginal yeast infections. Diagnosis -- As with initial yeast infections, it is important to correctly diagnose recurrent yeast infections. A woman who has frequent signs and symptoms of vulvar or vaginal irritation or itchingshould be seen by a healthcare provider to ensure that her symptoms are caused by yeast rather thanother common problems (eg, other vaginal infections, allergic reaction or sensitivity, eczema). As with initial infections, self-diagnosis is not accurate enough to recommend treatment. Treatment -- Women with recurrent infections are usually given a longer course of treatment for infections, between 7 and 14 days for a topical (cream or suppository) medication or fluconazole 150 mgby mouth with a second and third dose 3 and 6 days later. Preventive treatment may be recommended after the infection has resolved; this may include fluconazole (150 mg orally once per week) or clotrimazole (500 mg vaginal suppositories administered once per week). Treatment of a sexual partner -- Vaginal yeast infections are not a sexually transmitted infection,although the infection may rarely be passed from one partner to another. Most experts do not recommend treatment of a sexual partner. SUMMARY Vaginal yeast infections are a common problem in women. Itching is the most common symptom of a vaginal yeast infection. Women may also note pain with urination, soreness or irritation, pain with intercourse, or reddened and swollen vulvar and vaginal tissues. There is often little or no vaginal discharge; if present, discharge is typically white and clumpy (curd- like) or thin and watery. Symptoms of a yeast infection are similar to a number of other conditions. A physical examination is needed to determine the cause of symptoms. There are several risk factors that may increase the chances of developing a yeast infection, including use of antibiotics, control, diabetes, , and a weakened immune system (due to chemotherapy, HIV, or certain medications). To diagnose a vaginal yeast infection, a healthcare provider will do an examination. It is important to be seen when symptoms are bothersome and before any treatment is used. Do not begin treatment for a yeast infection before being examined. Treatment of vaginal yeast infection may include a vaginal cream or tablet or a pill taken by mouth. documented in this encounterUniversity Hospitals Cleveland Medical Center08-31-2024 NoteHNO ID: [id number] Author: EVI KAUFMAN APRN.MANAGER PROVIDER RELATIONS Service: ? Author Type: Nurse Practitioner Type: Progress Notes Filed: 01/05/2024 12:44 Note Text: Telemedicine Visit - Distance Health Virtual Visit Note Patient seen on [employer] Video Visit platform. Location of patient: [place] I have communicated my name and active licensure. The patient's identity and physical location were verified at the time of this visit. Either the patient or their legal hotel services sales representative has been informed of the risks and benefits of -- and alternatives to -- treatment through a remote evaluation and consents to proceed with the evaluation remotely. History of Present Illness Reji Lorenzo is a 28 year old female who presents for complaint of Yeast infection , raw bleeding itching. Symptoms have been present for 3 day(s) with symptoms that are constant. Vaginitis ROS: Symptoms include: Positive for: discharge described as white, thick, local irritation, vulvar itching, and burning and Negative for: odor, pain, lesions, bumps, warts, blisters, tears, and UTI symptoms Predisposing factors: None Hx of previous vaginitis: rare. Hx of BV several times but does not appear the same Sexually active: Yes: STI concerns: No /Lactating: : No: Lactating: No LMP: 12/14/23, regular PAST MEDICAL HISTORY No date: ADHD (attention deficit hyperactivity disorder) 12/31/2014: Anemia complicating No date: Anxiety No date: Bipolar disorder (HCC) No date: Chlamydia 03/01/2022: Chronic active hepatitis (HCC) No date: Depression 03/17/2014: Depression 11 years old: fracture Comment: marcy age 7: Fracture Comment: left leg No date: Hepatitis C No date: Herpes simplex without mention of complication No date: History of bleeding ulcers No date: History of heroin use No date: Ovarian cyst No date: PID (acute pelvic inflammatory disease) No date: Polysubstance abuse ([facility]) Comment: Cocaine, heroin, benzos, methamphetamines 03/01/2022: Seizure ([facility]) PAST SURGICAL HISTORY 04/16/2018: DELIVERY ONLY Comment: C/S low transverse 06/08/2014: ESOPHAGOGASTRODUODENOSCOPY TRANSORAL DIAGNOSTIC Comment: EGD 03/06/2022: LAPS SURG CHOLECYSTECTOMY W/CHOLANGIOGRAPHY 09/21/2021: PAST SURGICAL HISTORY OF Comment: fallopian tubes removed FAMILY HISTORY Problem Relation Age of Onset Alcohol/Drug Mother Alcohol/Drug Father Seizures Sister other (SIDS) Brother Breast Cancer Maternal Grandmother Cancer Paternal Grandmother Lymphoma Cancer Paternal Grandfather Diabetes Paternal Grandfather Paternal/Materal sides Social History Tobacco Use Smoking status: Every Day Current packs/day: 1.00 Average packs/day: 1 pack/day for 13.8 years (13.8 ttl pk-yrs) Types: Cigarettes Start date: 03/17/2010 Smokeless tobacco: Never Vaping Use Vaping status: current everyday user Substances: Nicotine Substance Use Topics Alcohol use: No Drug use: Not Currently Comment: Yoditkirill at today's visit 03/16/2017 Current Outpatient Medications Medication Sig buprenorphine ER (SUBLOCADE) 100 mg/0.5 mL injection Inject 100 mg subcutaneously one time only. (Patient not taking: Reported on 08/17/2023) No current facility-administered medications for this visit. ALLERGIES Allergen Reactions Benadryl [Diphenhyd* Other: See Comments Hyper/anxiety Clindamycin Rash Rash and facial swelling Penicillins Rash Video Exam (Examination performed via Video enabled technology) General appearance: Alert, oriented, pleasant, in NAD :Yes Ill appearing :No Lethargic appearing :No Respiratory distress :No Abdomen: non-tender by self palpation CVA Tenderness: non-tender bilaterally by self palpation ASSESSMENT/PLAN: 1. Acute vaginitis - ICD9: 616.10, ICD10: N76.0 Discussed etiology and rationale for treatment - FLUCONAZOLE 150 MG TABLETx 1 dose o Keep vaginal area clean and dry o Shower daily and avoid taking baths o Avoid scented lotions and douching o Encouraged daily probiotics or eating yogurt with live cultures o Avoid sexual activity until your symptoms have completely resolved o Avoid wearing tight or restrictive clothing; cotton underwear is recommended o If you have recurrent vaginal yeast infections, it is important you follow up with your primary care health provider and/or your [facility] [employer] [facility]. Vaginal yeast infections can be caused by antibiotic use, uncontrolled diabetes mellitus, and other conditions. o If symptoms do not improve recommend having an in-person evaluation. - Red flags discussed for need for in person care - All questions answered Evi Kaufman APRN.[facility] History of Present illness Narrative* Evi Kaufman APRN.EDILBERTO - 01/05/2024 12:40 PM EDT Telemedicine Visit - Distance Health Virtual Visit Note Patient seen on [employer] Video Visit platform. Location of patient: [place] I have communicated my name and active licensure. The patient's identity and physical location wereverified at the time of this visit. Either the patient or their legal hotel services sales representative has been informed of the risks and benefits of -- and alternatives to -- treatment through a remote evaluation andconsents to proceed with the evaluation remotely. History of Present Illness Reji Lorenzo is a 28 year old female who presents for complaint of Yeast infection , raw bleeding itching. Symptoms have been present for 3 day(s) with symptoms that are constant. Vaginitis ROS: Symptoms include: Positive for: discharge described as white, thick, local irritation, vulvar itching, and burning and Negative for: odor, pain, lesions, bumps, warts, blisters, tears, and UTI symptoms Predisposing factors: None Hx of previous vaginitis: rare. Hx of BV several times but does not appear the same Sexually active: Yes: STI concerns: No /Lactating: : No: Lactating: No LMP: 12/14/23, regular PAST MEDICAL HISTORY No date: ADHD (attention deficit hyperactivity disorder) 12/31/2014: Anemia complicating No date: Anxiety No date: Bipolar disorder ([facility]) No date: Chlamydia 03/01/2022: Chronic active hepatitis ([facility]) No date: Depression 03/17/2014: Depression 11 years old: fracture Comment: marcy age 7: Fracture Comment: left leg No date: Hepatitis C No date: Herpes simplex without mention of complication No date: History of bleeding ulcers No date: History of heroin use No date: Ovarian cyst No date: PID (acute pelvic inflammatory disease) No date: Polysubstance abuse ([facility]) Comment: Cocaine, heroin, benzos, methamphetamines 03/01/2022: Seizure ([facility]) PAST SURGICAL HISTORY 04/16/2018: DELIVERY ONLY Comment: C/S low transverse 06/08/2014: ESOPHAGOGASTRODUODENOSCOPY TRANSORAL DIAGNOSTIC Comment: EGD 03/06/2022: LAPS SURG CHOLECYSTECTOMY W/CHOLANGIOGRAPHY 09/21/2021: PAST SURGICAL HISTORY OF Comment: fallopian tubes removed FAMILY HISTORY Problem Relation Age of Onset Alcohol/Drug Mother Alcohol/Drug Father Seizures Sister other (SIDS) Brother Breast Cancer Maternal Grandmother Cancer Paternal Grandmother Lymphoma Cancer Paternal Grandfather Diabetes Paternal Grandfather Paternal/Materal sides Social History Tobacco Use Smoking status: Every Day Current packs/day: 1.00 Average packs/day: 1 pack/day for 13.8 years (13.8 ttl pk-yrs) Types: Cigarettes Start date: 03/17/2010 Smokeless tobacco: Never Vaping Use Vaping status: current everyday user Substances: Nicotine Substance Use Topics Alcohol use: No Drug use: Not Currently Comment: Wilmakirill lauren at today's visit 03/16/2017 Current Outpatient Medications Medication Sig buprenorphine ER (SUBLOCADE) 100 mg/0.5 mL injection Inject 100 mg subcutaneously one time only. (Patient not taking: Reported on 08/17/2023) No current facility-administered medications for this visit. ALLERGIES Allergen Reactions Benadryl [Diphenhyd* Other: See Comments Hyper/anxiety Clindamycin Rash Rash and facial swelling Penicillins Rash Video Exam (Examination performed via Video enabled technology) General appearance: Alert, oriented, pleasant, in NAD :Yes Ill appearing :No Lethargic appearing :No Respiratory distress :No Abdomen: non-tender by self palpation CVA Tenderness: non-tender bilaterally by self palpation ASSESSMENT/PLAN: 1. Acute vaginitis - ICD9: 616.10, ICD10: N76.0 Discussed etiology and rationale for treatment - FLUCONAZOLE 150 MG TABLETx 1 dose o Keep vaginal area clean and dry o Shower daily and avoid taking baths o Avoid scented lotions and douching o Encouraged daily probiotics or eating yogurt with live cultures o Avoid sexual activity until your symptoms have completely resolved o Avoid wearing tight or restrictive clothing; cotton underwear is recommended o If you have recurrent vaginal yeast infections, it is important you follow up with your primary care health provider and/or your [facility] [facility]. Vaginal yeast infections can be caused by antibiotic use, uncontrolled diabetes mellitus, and other conditions. o If symptoms do not improve recommend having an in-person evaluation. - Red flags discussed for need for in person care - All questions answered vEi Kaufman APRN.EDILBERTO documented in this encounterUniversity [facility]06-28-2024 Telephone encounter Note * Telephone Encounter - Evi Velasquez - 11/02/2023 7:34 AM EDT Patient verbally understand she has a rx at pharmacy for BV,.Also understands her std results were all negative. Evi Velasquez [facility]06-28-2024 Miscellaneous Notes* Telephone Encounter - Evi Velasquez - 11/02/2023 7:34 AM EDT Patient verbally understand she has a rx at pharmacy for BV,.Also understands her std results were all negative. Evi Velasquez * Telephone Encounter - Javi Busch APRN.CNP - 11/02/2023 7:18 AM EDT Please inform patient that gonorrhea chlamydia test was negative. Continue treatment for BV as prescribed. Javi Busch APRN.CNP * Telephone Encounter - Aurelio Fulton MD - 11/01/2023 8:54 PM EDT Vaginal swab shows no yeast but was positive for overgrowth of normal bacteria. Treatment for BV sent to the pharmacy. documented in this encounterUniversity Hospitals [facility]06-28-2024 Telephone encounter Note * Telephone Encounter - Javi Busch APRN.CNP - 11/02/2023 7:18 AM EDT Please inform patient that gonorrhea chlamydia test was negative. Continue treatment for BV as prescribed. Javi Busch APRN.CNP [facility] Work Phone: 1(189) 773-545006-27-2024 Telephone encounter Note* Telephone Encounter - Aurelio Fulton MD - 11/01/2023 8:54 PM EDT Vaginal swab shows no yeast but was positive for overgrowth of normal bacteria. Treatment for BV sent to the pharmacy. [facility]06-27-[facility] History of Present illness Narrative* Treasure Alejandra APRN.MANAGER PROVIDER RELATIONS - 11/01/2023 10:56 AM EDT This note was created using Ubers[employer]er[employer]. Subjective Reji Lorenzo is a 28 year old female. 28 year old female with PMH GERD, anemia, seizure, ADHD, bipolar and depression presents for thinkI have a yeast infection Acute onset 2 days ago +white thick discharge +itching Denies odor Denies vaginal bleeding Denies sx Denies abdominal pain Denies N/V/D Denies skin rash or lesions. 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 The history is provided by the patient. No fleet operations manager was used. Vaginal Problem This is a new problem. Episode onset: 2 days ago. The problem occurs constantly. The problem has been gradually worsening. Pertinent negatives include no abdominal pain, anorexia, arthralgias, changein bowel habit, chest pain, chills, congestion, coughing, diaphoresis, fatigue, fever, headaches, joint swelling, myalgias, nausea, neck pain, numbness, rash, sore throat, swollen glands, urinary symptoms, vertigo, visual change, vomiting or weakness. Nothing aggravates the symptoms. She has tried nothing for the symptoms. The treatment provided no relief. PAST MEDICAL HISTORY Diagnosis Date ADHD (attention deficit hyperactivity disorder) Anemia complicating 12/31/2014 Anxiety Bipolar disorder (HCC) Chlamydia Chronic active hepatitis (HCC) 03/01/2022 Depression Depression 03/17/2014 fracture 11 years old collarbone Fracture age 7 left leg Hepatitis C Herpes simplex without mention of complication History of bleeding ulcers History of heroin use Ovarian cyst PID (acute pelvic inflammatory disease) Polysubstance abuse (HCC) Cocaine, heroin, benzos, methamphetamines Seizure (HCC) 03/01/2022 PAST SURGICAL HISTORY Procedure Laterality Date DELIVERY ONLY 04/16/2018 C/S low transverse ESOPHAGOGASTRODUODENOSCOPY TRANSORAL DIAGNOSTIC 06/08/2014 EGD LAPS SURG CHOLECYSTECTOMY W/CHOLANGIOGRAPHY 03/06/2022 PAST SURGICAL HISTORY OF 09/21/2021 fallopian tubes removed ALLERGIES Benadryl [Diphenhydramine Hcl], Clindamycin, and Penicillins MEDICATIONS fluconazole (DIFLUCAN) 150 mg tablet Take 1 tablet by mouth once daily for 1 day. buprenorphine ER (SUBLOCADE) 100 mg/0.5 mL injection Inject 100 mg subcutaneously one time only. (Patient not taking: Reported on 08/17/2023) FAMILY HISTORY Problem Relation Age of Onset Alcohol/Drug Mother Alcohol/Drug Father Seizures Sister other (SIDS) Brother Breast Cancer Maternal Grandmother Cancer Paternal Grandmother Lymphoma Cancer Paternal Grandfather Diabetes Paternal Grandfather Paternal/Materal sides Social History Tobacco Use Smoking status: Every Day Packs/day: 1.00 Years: 7.00 Additional pack years: 0.00 Total pack years: 7.00 Types: Cigarettes Start date: 03/17/2010 Smokeless tobacco: Never Vaping Use Vaping Use: current everyday user Substances: Nicotine Substance Use Topics Alcohol use: No Drug use: Not Currently Comment: kirill Monsivais at today's visit 03/16/2017 Review of Systems Constitutional: Negative for chills, diaphoresis, fatigue and fever. HENT: Negative for congestion and sore throat. Respiratory: Negative for cough. Cardiovascular: Negative for chest pain, palpitations and leg swelling. Gastrointestinal: Negative for abdominal pain, anorexia, change in bowel habit, nausea and vomiting. Genitourinary: Positive for vaginal discharge. Negative for dysuria, flank pain, frequency, urgencyand vaginal bleeding. Musculoskeletal: Negative for arthralgias, joint swelling, myalgias and neck pain. Skin: Negative for color change, pallor and rash. Allergic/Immunologic: Negative for environmental allergies, food allergies and immunocompromised state. Neurological: Negative for dizziness, vertigo, facial asymmetry, weakness, numbness and headaches. Hematological: Negative for adenopathy. Does not bruise/bleed easily. Psychiatric/Behavioral: Negative for agitation and behavioral problems. Objective BP 120/66 Pulse 68 Temp 36.6 C (97.9 F) Resp 16 Wt 64.5 kg (142 lb 3.2 oz) LMP 07/31/2023(Approximate) SpO2 98% BMI 26.01 kg/m Physical Exam Vitals and nursing note reviewed. Constitutional: General: She is not in acute distress. Appearance: Normal appearance. She is normal weight. She is not ill-appearing, toxic-appearing or diaphoretic. HENT: Head: Normocephalic and atraumatic. Right Ear: Ear canal and external ear normal. Left Ear: Ear canal and external ear normal. Nose: Nose normal. No congestion or rhinorrhea. Mouth/Throat: Mouth: Mucous membranes are moist. Pharynx: No oropharyngeal exudate or posterior oropharyngeal erythema. Eyes: General: Right eye: No discharge. Left eye: No discharge. Extraocular Movements: Extraocular movements intact. Conjunctiva/sclera: Conjunctivae normal. Pupils: Pupils are equal, round, and reactive to light. Cardiovascular: Rate and Rhythm: Normal rate and regular rhythm. Pulses: Normal pulses. Heart sounds: Normal heart sounds. No murmur heard. No friction rub. Pulmonary: Effort: Pulmonary effort is normal. No respiratory distress. Breath sounds: Normal breath sounds. No stridor. No wheezing, rhonchi or rales. Chest: Chest wall: No tenderness. Abdominal: General: Abdomen is flat. There is no distension. Palpations: Abdomen is soft. There is no mass. Tenderness: There is no abdominal tenderness. There is no right CVA tenderness, left CVA tenderness, guarding or rebound. Hernia: No hernia is present. Genitourinary: Comments: Declines pelvic exam related to young children accompany her Musculoskeletal: General: No swelling, tenderness, deformity or signs of injury. Normal range of motion. Cervical back: Normal range of motion and neck supple. No rigidity. Right lower leg: No edema. Left lower leg: No edema. Lymphadenopathy: Cervical: No cervical adenopathy. Skin: General: Skin is warm and dry. Capillary Refill: Capillary refill takes less than 2 seconds. Coloration: Skin is not jaundiced or pale. Findings: No bruising, erythema, lesion or rash. Neurological: General: No focal deficit present. Mental Status: She is alert and oriented to person, place, and time. Cranial Nerves: No cranial nerve deficit. Sensory: No sensory deficit. Motor: No weakness. Coordination: Coordination normal. Gait: Gait normal. Psychiatric: Mood and Affect: Mood normal. Behavior: Behavior normal. Thought Content: Thought content normal. Judgment: Judgment normal. Assessment and Plan ASSESSMENT/PLAN: 1. Vaginal discharge - ICD9: 623.5, ICD10: N89.8 (primary diagnosis) X 2 days History of yeast infection and states this feels similar Denies concerns for STI but would not hurt to be tested She is here with her young children, one who is being evaluated Self swabs Will provide x 1 Diflucan Will await results to guide further treatment - GABRIELA/TRICHOMONAS NAAT - BACTERIAL VAGINOSIS NAAT - GONORRHEA/CHLAMYDIA NAAT - FLUCONAZOLE 150 MG TABLET 2. Encounter for screening examination for sexually transmitted disease - ICD9: V74.5, ICD10: Z11.3 X 2 days vaginal discharge Denies concerns for STI but would not hurt to be tested Treasure Alejandra APRN.MANAGER PROVIDER RELATIONS documented in this encounterUniversity [facility]als [facility]06-27-2024 Telephone encounter Note * Telephone Encounter - Jennifer Lozano LPN - 11/01/2023 10:09 AM EDT Phoned patient and VM left for her to return call to schedule or she could schedule via [employer]hart. Jennifer Lozano LPN [facility]06-27-2024 Miscellaneous Notes* Telephone Encounter - Jennifer Lozano LPN - 11/01/2023 10:09 AM EDT Phoned patient and VM left for her to return call to schedule or she could schedule via [employer]. Jennifer Lozano LPN * Telephone Encounter - Celi Murray MD - 11/01/2023 9:59 AM EDT Her last OV was more than 1 year ago. Recommend OV to discuss symptoms and update vitals and physical exam. I have openings today and tomorrow still. * Telephone Encounter - Mari Mora RN - 11/01/2023 9:38 AM EDT Patient call in for vaginal itching and discharge x 3 days Nurse Triage assessment completed with protocol recommending for disposition of see PCP in 3 days. Patient is asking if provider can send in prescription for Diflucan? Care advice reviewed with patient, patient stated understanding. Reason for Disposition [1] Symptoms of a yeast infection (i.e., itchy, white discharge, not bad smelling) AND [2] not improved > 3 days following Care Advice Answer Assessment - Initial Assessment Questions 1. SYMPTOM: Itching 2. LOCATION: Itching more on the opening 3. ONSET: X 3 days 4. PAIN: Denies 5. ITCHING: Rates itching 3 out of 10 6. CAUSE: White thick discharge; yeast infection; Diflucan 7. OTHER SYMPTOMS: Odor (not fishy smell); white thick discharge. Protocols used: Vaginal [id number] documented in this encounterUniversity [facility]als [facility]06-27-2024 Telephone encounter Note * Telephone Encounter - Celi Murray MD - 11/01/2023 9:59 AM EDT Her last OV was more than 1 year ago. Recommend OV to discuss symptoms and update vitals and physical exam. I have openings today and tomorrow still. [facility] Work Phone: [phone]) 955-417206-27-2024 Telephone encounter Note* Telephone Encounter - Mari Mora RN - 11/01/2023 9:38 AM EDT Patient call in for vaginal itching and discharge x 3 days Nurse Triage assessment completed with protocol recommending for disposition of see PCP in 3 days. Patient is asking if provider can send in prescription for Diflucan? Care advice reviewed with patient, patient stated understanding. Reason for Disposition [1] Symptoms of a yeast infection (i.e., itchy, white discharge, not bad smelling) AND [2] not improved > 3 days following Care Advice Answer Assessment - Initial Assessment Questions 1. SYMPTOM: Itching 2. LOCATION: Itching more on the opening 3. ONSET: X 3 days 4. PAIN: Denies 5. ITCHING: Rates itching 3 out of 10 6. CAUSE: White thick discharge; yeast infection; Diflucan 7. OTHER SYMPTOMS: Odor (not fishy smell); white thick discharge. Protocols used: Vaginal [id number] [facility]04-13-2024 Miscellaneous Notes* Telephone Encounter - Denise Hurtado MA - 08/18/2023 9:36 AM EDT Patient notified of results, verbalized understanding of instructions given. Denise Hurtado MA * Telephone Encounter - Kan Brian PA - 08/18/2023 8:08 AM EDT Please call patient and let her know she tested positive for bacterial vaginosis. This is not an STD. Rx for metronidazole sent to her pharmacy- [facility] [place]. Please do not drink alcohol while taking this medication. documented in this encounterUniversity Hospitals [facility] Center04-12-2024 Instructions* Patient Instructions* Britt Maza APRN.MANAGER PROVIDER RELATIONS - 08/17/2023 2:49 PM EDT ASSESSMENT/PLA3N: 1. Vaginal discharge - ICD9: 623.5, ICD10: N89.8 - GABRIELA/TRICHOMONAS NAAT - BACTERIAL VAGINOSIS NAAT - GONORRHEA/CHLAMYDIA NAAT - will treat according to test results. - Follow-up with your PCP in 3-5 days if symptoms have not improved or sooner if symptoms worsen Britt Maza APRN.MANAGER PROVIDER RELATIONS documented in this encounterUniversity Hospitals [facility] Center04-12-2024 History of Present illness Narrative* Britt Maza APRN.MANAGER PROVIDER RELATIONS - 08/17/2023 2:46 PM EDT Subjective Vaginal Problem Pertinent negatives include no abdominal pain, chills, fever or rash. Reji Lorenzo is a 27 year old female who presents with concern for yeast infection or BV. Has been having vaginal discharge and odor. Denies pain or rash. States she has been using a new soap from [employer]) and seems to be having symptoms due to this. Has a history of BV. Currently sexually active, denies new partners or concerns for STD but would like to be tested. Review of Systems Constitutional: Negative for chills and fever. Respiratory: Negative. Cardiovascular: Negative. Gastrointestinal: Negative for abdominal pain. Genitourinary: Positive for vaginal discharge. Negative for dysuria and urgency. See HPI Skin: Negative for itching and rash. BP 103/69 Pulse 66 Temp 36.2 C (97.2 F) Resp 18 Wt 67 kg (147 lb 11.3 oz) LMP 07/31/2023 (Approximate) SpO2 97% No BMI 27.02 kg/m PAST MEDICAL HISTORY Diagnosis Date ADHD (attention deficit hyperactivity disorder) Anemia complicating 12/31/2014 Anxiety Bipolar disorder (HCC) Chlamydia Chronic active hepatitis (HCC) 03/01/2022 Depression Depression 03/17/2014 fracture 11 years old collarbone Fracture age 7 left leg Hepatitis C Herpes simplex without mention of complication History of bleeding ulcers History of heroin use Ovarian cyst PID (acute pelvic inflammatory disease) Polysubstance abuse (HCC) Cocaine, heroin, benzos, methamphetamines Seizure (HCC) 03/01/2022 PAST SURGICAL HISTORY Procedure Laterality Date DELIVERY ONLY 04/16/2018 C/S low transverse ESOPHAGOGASTRODUODENOSCOPY TRANSORAL DIAGNOSTIC 06/08/2014 EGD LAPS SURG CHOLECYSTECTOMY W/CHOLANGIOGRAPHY 03/06/2022 PAST SURGICAL HISTORY OF 09/21/2021 fallopian tubes removed ALLERGIES Benadryl [Diphenhydramine Hcl], Clindamycin, and Penicillins MEDICATIONS buprenorphine ER (SUBLOCADE) 100 mg/0.5 mL injection Inject 100 mg subcutaneously one time only. (Patient not taking: Reported on 08/17/2023) FAMILY HISTORY Problem Relation Age of Onset Alcohol/Drug Mother Alcohol/Drug Father Seizures Sister other (SIDS) Brother Breast Cancer Maternal Grandmother Cancer Paternal Grandmother Lymphoma Cancer Paternal Grandfather Diabetes Paternal Grandfather Paternal/Materal sides Social History Tobacco Use Smoking status: Every Day Packs/day: 1.00 Years: 7.00 Additional pack years: 0.00 Total pack years: 7.00 Types: Cigarettes Start date: 03/17/2010 Smokeless tobacco: Never Vaping Use Vaping Use: current everyday user Substances: Nicotine Substance Use Topics Alcohol use: No Drug use: Not Currently Comment: kirill Monsivais at today's visit 03/16/2017 Objective Physical Exam Vitals and nursing note reviewed. Cardiovascular: Rate and Rhythm: Normal rate. Pulmonary: Effort: Pulmonary effort is normal. Genitourinary: Comments: Patient declines exam. Prefers to self swab. Skin: General: Skin is warm and dry. ASSESSMENT/PLA3N: 1. Vaginal discharge - ICD9: 623.5, ICD10: N89.8 - GABRIELA/TRICHOMONAS NAAT - BACTERIAL VAGINOSIS NAAT - GONORRHEA/CHLAMYDIA NAAT - will treat according to test results. - Follow-up with your PCP in 3-5 days if symptoms have not improved or sooner if symptoms worsen Britt Maza APRN.MANAGER PROVIDER RELATIONS documented in this encounterUniversity [facility]03-21-[facility]24 History of Present illness Narrative* Yesica Trujillo - 07/26/2023 1:45 PM EDT History of Present Illness: Current concerns: Has to move. Has kids back. Life is just stresful Current medications: Current Outpatient Medications: buprenorphine 2 mg/naloxone 0.5 mg (SUBOXONE) SL film, Place 1 strip under tongue every 12 hours for 9 days. Dissolve under tongue, Disp: 18 strip, Rfl: 0 buprenorphine ER (Sublocade) 300 MG/1.5ML Solution Prefilled Syringe injection, 1.5 mL every 30 days., Disp: , Rfl: Buprenorphine HCl 2 MG tablet, Take 1 tablet by mouth., Disp: , Rfl: naloxone 4 MG/0.1ML, 1 spray by Nasal route once for 1 dose. Dexter into the nose as directed. Call 911. If no response in 2 minutes use a new nasal spray in other nostril. Repeat until help arrives.,Disp: 1 Each, Rfl: 0 Problems with medication: No Any cravings ,any time of day or night: No Any withdraw all symptoms, any time of day or night: No Any night sweats: No Any Using Dreams No Any use of opioid that isn't prescribed for you and is unknown to me: No Counselor- yes - new Day Labs: Reviewed Yes POCT ALERE DRUG SCREEN Order: [id number] Status: In process Visible to patient: No (not released) Next appt: None Dx: Opioid dependence in remission 0 Result Notes Component 07/26/23 1300 Marijuana (THC), poct Negative COCAINE (NILDA), POCT Negative Opiate (OPI), poct Negative Methamphetamine (mAMP/MET), poct Negative Amphetamine (AMP), poct Negative Barbiturates (BAR), poct Negative Methadone (MTD), poct Negative Ecstasy (MDMA), poct Negative Oxycodone, POC Negative Phencyclidine (PCP), poct Negative Propoxyphene (PPX), poct Negative OXAZEPAM (BZO),POCT negative Buprenorphine Glucuronide (BUPG),poct positive Nortripyline (TCA), poct Negative fentanyl BREATHALYZER RESULTS: Patient was able to perform Breathalyzer with the following result: 0.00% YOUR READING YOUR RANGE DESCRIPTION 0.00% to 0.01% Safe*range Little/no alcohol intake 0.02% to 0.04% Moderate* range Increased alcohol intake 0.05% and over Warning* range Ability to drive may be impaired Yesica Trujillo * Vinnie Daily, DO - 07/26/2023 1:45 PM EDT History of Present Illness: Current concerns: I'm not going to schedule my next Sublocade until I see 180 and they may continueSublocade Will also change counselors Current medications: SUBLOCADE Current Outpatient Medications: buprenorphine 2 mg/naloxone 0.5 mg (SUBOXONE) SL film, Place 1 strip under tongue every 12 hours for 9 days. Dissolve under tongue, Disp: 18 strip, Rfl: 0 buprenorphine ER (Sublocade) 300 MG/1.5ML Solution Prefilled Syringe injection, 1.5 mL every 30 days., Disp: , Rfl: Buprenorphine HCl 2 MG tablet, Take 1 tablet by mouth., Disp: , Rfl: naloxone 4 MG/0.1ML, 1 spray by Nasal route once for 1 dose. Dexter into the nose as directed. Call 911. If no response in 2 minutes use a new nasal spray in other nostril. Repeat until help arrives.,Disp: 1 Each, Rfl: 0 Problems with medication: Yes, describe: requires supplemental bup/nlx at the 4th week of Sublocade Any cravings ,any time of day or night: Yes, describe: OK Any withdraw all symptoms, any time of day or night: Yes, describe: relieved w supplemental bup/nlx Any night sweats: No Any Using Dreams Yes, describe: last past Sunday night Any use of opioid that isn't prescribed for you and is unknown to me: No AOD: OUD IUDS: Component 07/26/23 1300 Marijuana (THC), poct Negative COCAINE (NILDA), POCT Negative Opiate (OPI), poct Negative Methamphetamine (mAMP/MET), poct Negative Amphetamine (AMP), poct Negative Barbiturates (BAR), poct Negative Methadone (MTD), poct Negative Ecstasy (MDMA), poct Negative Oxycodone, POC Negative Phencyclidine (PCP), poct Negative Propoxyphene (PPX), poct Negative OXAZEPAM (BZO),POCT negative Buprenorphine Glucuronide (BUPG),poct positive Nortripyline (TCA), poct Negative fentanyl Counselor- yes - Aurelio Varela- lives in [place] working a [employer]- reviewed Labs: Reviewed Yes, Millenium 0222 consistent BREATHALYZER RESULTS: Patient was able to perform Breathalyzer with the following result: 0 % YOUR READING YOUR RANGE DESCRIPTION 0.00% to 0.01% Safe*range Little/no alcohol intake 0.02% to 0.04% Moderate* range Increased alcohol intake 0.05% and over Warning* range Ability to drive may be impaired Results submitted by Vinnie Daily DO , 07/26/2023 BP 104/75 (BP Location: Left arm, BP Position: Sitting) Pulse 96 Temp 98.1 F (36.7 C) Ht 1.575 m (5' 2) Wt 67.1 kg (148 lb) SpO2 98% BMI 27.07 kg/m Smoking Status Every Day Physical Exam Constitutional: Appearance: Normal appearance. Eyes: Extraocular Movements: Extraocular movements intact. Pupils: Pupils are equal, round, and reactive to light. Pulmonary: Effort: Pulmonary effort is normal. Musculoskeletal: General: Normal range of motion. Neurological: General: No focal deficit present. Mental Status: She is alert and oriented to person, place, and time. Psychiatric: Mood and Affect: Mood normal. Behavior: Behavior normal. 20 minutes was spent face to face with patient. Greater than 50% was spent counseling on care management as documented. Patient questions were answered to her satisfaction. Assessment and Plan 1. Opioid dependence in remission Rtc 4 weeks Pt may connect with another treatment program and will let us know - DRUG SCREEN MED COMPLIANCE I; Future - POCT ALERE DRUG SCREEN - buprenorphine 8 mg/naloxone 2 mg (SUBOXONE) SL film; Place 1 strip under tongue daily for 1 day. Dispense: 1 strip; Refill: 1 Vinnie Daily DO documented in this [facility]St[facility]03-[facility] History of Present illness Narrative* Barbra Booht RN - 07/26/2023 1:00 PM EDT 1323- Patient arrives ambulatory to infusion clinic for sublocade injection. Patient is alert and oriented x3, assists self to recliner. Patient denies any pain or concerns today. Immediate needs addressed. 1431-patient tolerated injection well without complications. Band aid applied to site. Patient discharged in stable condition. documented in this encounterSt. [facility]03-19-2024 Miscellaneous Notes* Telephone Encounter - Mallory Sevilla RN - 07/24/2023 3:[address] PM [address] [facility] [address] called in asking about Pt taking Suboxone. She is telling him that she took an old prescription 2 mg given to her by Dr Hatch. I let him know that this is Estuardo Daily, and his phone # is [phone] and he is out of the [facility]. He is going to call there, and states her probation office can pull up an ORRS report on her. documented in this encounterUniversity [facility]als [facility]02-22-2024 History of Present illness Narrative* P. Estuardo Daily, - 06/28/2023 2:00 PM EST History of Present Illness: Current concerns: has w/d sx's during the last 4 week of the Sublocade, I've had a lot going on I'm super triggered Current medications: SUBLOCADE, plus supplemental bup/nlx Current Outpatient Medications: buprenorphine 2 mg/naloxone 0.5 mg (SUBOXONE) SL film, Place 1 strip under tongue every 12 hours for 9 days. Dissolve under tongue, Disp: 18 strip, Rfl: 0 buprenorphine ER (Sublocade) 300 MG/1.5ML Solution Prefilled Syringe injection, 1.5 mL every 30 days., Disp: , Rfl: Buprenorphine HCl 2 MG tablet, Take 1 tablet by mouth., Disp: , Rfl: cefadroxil 500 MG capsule, TAKE 1 CAPSULE BY MOUTH TWICE DAILY FOR 10 DAYS, Disp: , Rfl: faMOTIdine 20 MG tablet, Take by mouth 2 times daily., Disp: , Rfl: lamoTRIgine 100 MG tablet, Take 1 tablet by mouth daily., Disp: , Rfl: Lisdexamfetamine Dimesylate 10 MG capsule, Take by mouth daily., Disp: , Rfl: naloxone 4 MG/0.1ML, 1 spray by Nasal route once for 1 dose. Dexter into the nose as directed. Call 911. If no response in 2 minutes use a new nasal spray in other nostril. Repeat until help arrives.,Disp: 1 Each, Rfl: 0 Sodium Phosphates (SM Enema) 7-19 GM/118ML Enema, 133 mL by RECTAL route one time only for 1 dose.,Disp: , Rfl: traZODone 50 MG tablet, Take 1 tablet by mouth at bedtime as needed., Disp: , Rfl: Trintellix 10 MG tablet, Take 1 tablet by mouth daily., Disp: , Rfl: Problems with medication: Yes, describe: as above Any cravings ,any time of day or night: Yes, describe: increased during the last 4 weeks, triggeredby stress Any withdraw all symptoms, any time of day or night: Yes, describe: during last 4 weeks Any night sweats: Yes, describe: Any Using Dreams Yes, describe: last night Any use of opioid that isn't prescribed for you and is unknown to me: No AOD: oud IUDS: bup Counselor- yes - Aurelio Arroyo [employer]- working [employer]- reviewed Labs: Reviewed Yes Millenium 0125 consistent BREATHALYZER RESULTS: Patient was able to perform Breathalyzer with the following result: not done YOUR READING YOUR RANGE DESCRIPTION 0.00% to 0.01% Safe*range Little/no alcohol intake 0.02% to 0.04% Moderate* range Increased alcohol intake 0.05% and over Warning* range Ability to drive may be impaired Results submitted by Vinnie Daily DO , 06/28/2023 Smoking Status Every Day Physical Exam Constitutional: Appearance: Normal appearance. Eyes: Extraocular Movements: Extraocular movements intact. Pupils: Pupils are equal, round, and reactive to light. Pulmonary: Effort: Pulmonary effort is normal. Musculoskeletal: General: Normal range of motion. Neurological: General: No focal deficit present. Mental Status: She is alert and oriented to person, place, and time. Psychiatric: Mood and Affect: Mood normal. Behavior: Behavior normal. 10 minutes was spent face to face with patient. Greater than 50% was spent counseling on care management as documented. Patient questions were answered to her satisfaction. Assessment and Plan 1. Opiate withdrawal Prn supplemental bup/nlx RTC 8 weeks May contact us sooner prn 2. Opioid dependence in remission Sublocade - DRUG SCREEN MED COMPLIANCE I; Future 3. JESSICA (generalized anxiety disorder) Discussed need to properly address her anxiety Pt has tried vistaril and Buspar, claims Buspar causes weight gain Also discussed proper thinking habits Vinnie Daily DO documented in this [facility]02-22-2024 History of Present illness Narrative* Eleni Bui RN - 06/28/2023 1:30 PM EST 1405- Sublocade given in right upper quadrant. Discharged per ambulation, accompanied by self, in stable condition. Verbalizes understanding of instructions. documented in this [facility]02-20-[facility] History of Present illness Narrative* Clau Nicole PA-C - 06/26/2023 12:26 PM EST This note was created using Ubersenseriter. Subjective Reji Lorenzo is a 27 year old female. HPI Presents with a chief complaint of a herpes outbreak over the past 3 days. States she has a couple external lesions. She has had herpes off and on since she was 16 but has not had it in a while. She also has had some vaginal odor. She has noticed a little discharge but really nothing out of the ordinary. She has been with the same partner for a while, denies them having any symptoms. She would like checked for STDs. No urinary symptoms. No fever. Review of Systems Constitutional: Negative. HENT: Negative. Respiratory: Negative. Cardiovascular: Negative. Gastrointestinal: Negative. Genitourinary: Positive for genital sores, vaginal discharge and vaginal pain. Negative for dysuria, frequency, pelvic pain and urgency. All other systems reviewed and are negative. PAST MEDICAL HISTORY Diagnosis Date ADHD (attention deficit hyperactivity disorder) Anemia complicating 12/31/2014 Anxiety Bipolar disorder (HCC) Chlamydia Chronic active hepatitis (HCC) 03/01/2022 Depression Depression 03/17/2014 fracture 11 years old collarbone Fracture age 7 left leg Hepatitis C Herpes simplex without mention of complication History of bleeding ulcers History of heroin use Ovarian cyst PID (acute pelvic inflammatory disease) Polysubstance abuse ([facility]) Cocaine, heroin, benzos, methamphetamines Seizure ([facility]) 03/01/2022 Current Outpatient Medications Medication Sig Dispense Refill buprenorphine ER (SUBLOCADE) 100 mg/0.5 mL injection Inject 100 mg subcutaneously one time only. valACYclovir (VALTREX) 1 gram tablet Take 1 tablet by mouth once daily for 5 days. 5 tablet 0 No current facility-administered medications for this visit. PAST SURGICAL HISTORY Procedure Laterality Date DELIVERY ONLY 04/16/2018 C/S low transverse ESOPHAGOGASTRODUODENOSCOPY TRANSORAL DIAGNOSTIC 06/08/2014 EGD LAPS SURG CHOLECYSTECTOMY W/CHOLANGIOGRAPHY 03/06/2022 PAST SURGICAL HISTORY OF 09/21/2021 fallopian tubes removed FAMILY HISTORY Problem Relation Age of Onset Alcohol/Drug Mother Alcohol/Drug Father Seizures Sister other (SIDS) Brother Breast Cancer Maternal Grandmother Cancer Paternal Grandmother Lymphoma Cancer Paternal Grandfather Diabetes Paternal Grandfather Paternal/Materal sides Social History Tobacco Use Smoking status: Every Day Packs/day: 1.00 Years: 7.00 Additional pack years: 0.00 Total pack years: 7.00 Types: Cigarettes Start date: 03/17/2010 Smokeless tobacco: Never Vaping Use Vaping Use: current everyday user Substances: Nicotine Substance Use Topics Alcohol use: No Drug use: Not Currently Comment: kirill Monsivais at today's visit 03/16/2017 Objective BP 122/72 Pulse 78 Temp 37.2 C (98.9 F) (Tympanic) Resp 18 Wt 68 kg (150 lb) LMP 03/26/2023 (Approximate) SpO2 98% BMI 27.44 kg/m Physical Exam Vitals reviewed. Constitutional: Appearance: Normal appearance. HENT: Head: Normocephalic and atraumatic. Genitourinary: Comments: Deferred exam Skin: General: Skin is warm and dry. Neurological: Mental Status: She is alert. Assessment and Plan ASSESSMENT/PLAN: 1. Recurrent herpes labialis - ICD9: 054.9, ICD10: B00.1 (primary diagnosis) Will treat with Valtrex. 2. Screening for STD (sexually transmitted disease) - ICD9: V74.5, ICD10: Z11.3 Self swabs for STDs done. Will call on results. - GONORRHEA/CHLAMYDIA NAAT - BACTERIAL VAGINOSIS NAAT - GABRIELA/TRICHOMONAS NAAT Clau Nicole PA-C documented in this encounterUniversity Hospitals [facility]12-28-2023 History of Present illness Narrative* Sandee Ho RN - 05/03/2023 2:00 PM EST 1440 Sublocade injection given in right lower abd. Next appt scheduled. Discharged per ambulation in stable condition. Verbalizes understanding of instructions. [facility] in [facility] History of Present illness Narrative* Treasure Alejandra APRN.CNP - 04/14/2023 2:16 PM EST This note was created using Ubersenseriter. Subjective Reji Lorenzo is a 27 year old female. 27 year old female with PMH opiod use disorder who is on suboxone presents for vaginal discharge. Acute onset one week ago + vaginal discharge +watery +clear Denies abdominal pain. Denies flank pain Slight odor (denies fishy) Denies concerns for STI. States she recently changed body soap I am super sensitive LMP-3 weeks ago Used Azos yeast , but without relief. Also requesting refill on her prophylactic Acyclovir The history is provided by the patient. No fleet operations manager was used. Vaginal Problem This is a new problem. The current episode started in the past 7 days. The problem occurs constantly. The problem has been gradually worsening. Pertinent negatives include no abdominal pain, anorexia, arthralgias, change in bowel habit, chest pain, chills, congestion, coughing, diaphoresis, fatigue, fever, headaches, joint swelling, myalgias, nausea, neck pain, numbness, rash, sore throat, swollen glands, urinary symptoms, vertigo, visual change, vomiting or weakness. Nothing aggravates the symptoms. She has tried nothing for the symptoms. The treatment provided no relief. PAST MEDICAL HISTORY Diagnosis Date ADHD (attention deficit hyperactivity disorder) Anemia complicating 12/31/2014 Anxiety Bipolar disorder (HCC) Chlamydia Chronic active hepatitis (HCC) 03/01/2022 Depression fracture 11 years old collarbone Fracture age 7 left leg Hepatitis C Herpes simplex without mention of complication History of bleeding ulcers History of heroin use Ovarian cyst PID (acute pelvic inflammatory disease) Polysubstance abuse (HCC) Cocaine, heroin, benzos, methamphetamines Seizure (HCC) 03/01/2022 PAST SURGICAL HISTORY Procedure Laterality Date DELIVERY ONLY 04/16/2018 C/S low transverse ESOPHAGOGASTRODUODENOSCOPY TRANSORAL DIAGNOSTIC 06/08/2014 EGD LAPS SURG CHOLECYSTECTOMY W/CHOLANGIOGRAPHY 03/06/2022 PAST SURGICAL HISTORY OF 09/21/2021 fallopian tubes removed ALLERGIES Benadryl [Diphenhydramine Hcl], Clindamycin, and Penicillins MEDICATIONS buprenorphine ER (SUBLOCADE) 100 mg/0.5 mL injection Inject 100 mg subcutaneously one time only. fluconazole (DIFLUCAN) 150 mg tablet Take 1 tablet by mouth once daily for 1 day. metroNIDAZOLE (FLAGYL) 500 mg tablet Take 1 tablet by mouth two times a day for 7 days. acyclovir (ZOVIRAX) 800 mg tablet Take 1 tablet by mouth two times a day for 5 days. FAMILY HISTORY Problem Relation Age of Onset Alcohol/Drug Mother Alcohol/Drug Father Seizures Sister other (SIDS) Brother Breast Cancer Maternal Grandmother Cancer Paternal Grandmother Lymphoma Cancer Paternal Grandfather Diabetes Paternal Grandfather Paternal/Materal sides Social History Tobacco Use Smoking status: Every Day Packs/day: 1.00 Years: 7.00 Additional pack years: 0.00 Total pack years: 7.00 Types: Cigarettes Start date: 03/17/2010 Smokeless tobacco: Never Vaping Use Vaping Use: current everyday user Substances: Nicotine Substance Use Topics Alcohol use: No Drug use: Not Currently Comment: kirill Monsivais at today's visit 03/16/2017 Review of Systems Constitutional: Negative for chills, diaphoresis, fatigue and fever. HENT: Negative for congestion and sore throat. Eyes: Negative for photophobia, pain, discharge, redness and itching. Respiratory: Negative for apnea, cough, choking and chest tightness. Cardiovascular: Negative for chest pain. Gastrointestinal: Negative for abdominal pain, anorexia, change in bowel habit, nausea and vomiting. Genitourinary: Positive for vaginal discharge. Negative for difficulty urinating, dysuria, flank pain, frequency and vaginal bleeding. Musculoskeletal: Negative for arthralgias, joint swelling, myalgias and neck pain. Skin: Negative for color change, pallor and rash. Allergic/Immunologic: Negative for environmental allergies, food allergies and immunocompromised state. Neurological: Negative for vertigo, weakness, numbness and headaches. Hematological: Negative for adenopathy. Does not bruise/bleed easily. Psychiatric/Behavioral: Negative for agitation and behavioral problems. Objective BP 102/68 Pulse 84 Temp 36.3 C (97.4 F) (Left Tympanic) Resp 16 Wt 69.4 kg (153 lb) LMP 03/26/2023 (Approximate) SpO2 97% BMI 27.98 kg/m Physical Exam Vitals and nursing note reviewed. Constitutional: General: She is not in acute distress. Appearance: Normal appearance. She is normal weight. She is not ill-appearing, toxic-appearing or diaphoretic. HENT: Head: Normocephalic and atraumatic. Right Ear: Ear canal and external ear normal. Left Ear: Ear canal and external ear normal. Nose: Nose normal. No congestion or rhinorrhea. Mouth/Throat: Mouth: Mucous membranes are moist. Pharynx: No oropharyngeal exudate or posterior oropharyngeal erythema. Eyes: General: Right eye: No discharge. Left eye: No discharge. Extraocular Movements: Extraocular movements intact. Conjunctiva/sclera: Conjunctivae normal. Pupils: Pupils are equal, round, and reactive to light. Cardiovascular: Rate and Rhythm: Normal rate and regular rhythm. Pulses: Normal pulses. Heart sounds: Normal heart sounds. No murmur heard. No friction rub. Pulmonary: Effort: Pulmonary effort is normal. No respiratory distress. Breath sounds: Normal breath sounds. No stridor. No wheezing, rhonchi or rales. Chest: Chest wall: No tenderness. Abdominal: General: Abdomen is flat. There is no distension. Palpations: Abdomen is soft. There is no mass. Tenderness: There is no abdominal tenderness. There is no right CVA tenderness, left CVA tenderness, guarding or rebound. Hernia: No hernia is present. Genitourinary: Comments: Deferred at this time, Related to 18 month old Musculoskeletal: General: No swelling, tenderness, deformity or signs of injury. Normal range of motion. Cervical back: Normal range of motion and neck supple. No rigidity. Right lower leg: No edema. Left lower leg: No edema. Lymphadenopathy: Cervical: No cervical adenopathy. Skin: General: Skin is warm and dry. Capillary Refill: Capillary refill takes less than 2 seconds. Coloration: Skin is not jaundiced or pale. Findings: No bruising, erythema, lesion or rash. Neurological: General: No focal deficit present. Mental Status: She is alert and oriented to person, place, and time. Cranial Nerves: No cranial nerve deficit. Sensory: No sensory deficit. Motor: No weakness. Coordination: Coordination normal. Gait: Gait normal. Psychiatric: Mood and Affect: Mood normal. Behavior: Behavior normal. Thought Content: Thought content normal. Judgment: Judgment normal. Assessment and Plan ASSESSMENT/PLAN: 1. Vaginal discharge - ICD9: 623.5, ICD10: N89.8 (primary diagnosis) X one week Declines pelvic, she is here with her child She self swabs Will treat her with Diflucan and Flagyl, If symptoms persist she is to re present for physical exam. - GABRIELA/TRICHOMONAS NAAT - GONORRHEA/CHLAMYDIA NAAT - BACTERIAL VAGINOSIS NAAT 2. Encounter for medication refill - ICD9: V68.1, ICD10: Z76.0 Requesting acylovir. Has used for outbreaks in past, denies at this time But just in case Treasure Alejandra APRN.MANAGER PROVIDER RELATIONS documented in this encounterUniversity Hospitals [facility]11-30-2023 History of Present illness Narrative* Eleni Bui RN - 04/05/2023 2:00 PM EST 1425- Patient arrived per ambulation, accompanied by self. Alert, oriented x 3. Assisted to recliner. 1500- Discharged per ambulation, accompanied by self, in stable condition. Verbalizes understandingof instructions. documented in this encounterSt. [facility]11-[facility]-2023 History of Present illness Narrative* Eleni Bui RN - 03/08/2023 2:00 PM EDT 1405- Patient due for lab work today. Patient states she is unable to wait for blood work to come back today due to personal obligations after appointment. Spoke with Yesica at Dr. Hatch's office who states per Dr. Hatch, OK to draw labs today and give sublocade prior to receiving results. Results will be reviewed before patient's next injection. Pharmacy notified. 1420- Patient is requesting Dr. Hatch order buprenorphine tablet for her to take in clinic along with sublocade injection. Spoke with Yesica at Dr. Hatch's office who requests patient to go to office to see Dr. Hatch after she receives her injection to discuss tablet. Patient updated and she verbalizes understanding. 1440- Discharged per ambulation, accompanied by self, in stable condition. Verbalizes understandingof instructions. documented in this encounterSt. [facility]10-05-2023 History of Present illness Narrative* Sandee Ho RN - 02/08/2023 2:00 PM EDT Spoke with Yesica at Dr. Daily's office to see if pt needs tox screen today. She states he only wants urine test. Pt declines because she states she's had a tubal ligation. Phoned Yesica back and she states that she does not need to do urine HCG. * Eleni Bui RN - 02/08/2023 2:00 PM EDT 1425- subcutaneous injection given in left lower quadrant. documented in this encounterSt. Charles Hospital09-25-2023 History of Present illness Narrative* Aurelio Fulton MD - 01/29/2023 2:42 PM EDT Patient presents with: Insect Bite: x 2 days, itching HPI: Rash: Location/Duration:: back of the right arm this weekend, left forearm today while driving. Has been itching all over and quite stressed about bug bites. Pruritis: Yes Pain: No Change: tiny bites pop up and go away within a day Bleeding/ulceration/blister/pustule: raised bumps Contacts with rash: No Exposure: No new soaps, detergents, fabric softeners, lotions. Outdoor exposure: No. Change in medications: No. Recent illness: No. New rented couch. Sometimes bathes twice a day. Treatment: hydrocortisone. House checked by an envelope press operator today found no evidence of bugs. She gave her cat a bath and had no fleas. Volunteers she is sober. MEDICATIONS: buprenorphine ER (SUBLOCADE) 100 mg/0.5 mL injection Inject 100 mg subcutaneously one time only. ALLERGIES: ALLERGIES Allergen Reactions Benadryl [Diphenhyd* Other: See Comments Hyper/anxiety Clindamycin Rash Rash and facial swelling Penicillins Rash VITALS: BP 102/60 Pulse 78 Temp 36.4 C (97.6 F) Resp 16 Wt 65.3 kg (144 lb) LMP 11/23/2022 (Within Days) SpO2 98% BMI 26.34 kg/m PHYSICAL EXAM: GEN: anxious, alert SKIN: picture of left wrist showed 3 2mm lesions on the thenar wrist which are largely resolved. Faint hyperpigmentation on the posterior upper arm near the elbow where papules may have been. No nits, ulcers, pustules, or lice in the scalp. There are a few excoriated papules at the temples. ASSESSMENT/PLAN: 1. Rash - ICD9: 782.1, ICD10: R21 Minimal current lesions to evaluate. May be insect bites or contact dermatitis. She may use OTC zyrtec to reduce pruritis. Reassured low suspicion of scabies. She would like to undergo treatment to reduce her stress about it. - PERMETHRIN 5 % TOPICAL CREAM Aurelio Fulton MD documented in this encounterUniversity Hospitals [facility]09-07-2023 History of Present illness Narrative* Sandee Ho RN - 01/11/2023 3:00 PM EDT Pt here for Sublocade injection. No complaints voiced and no adverse reaction noted. documented in this encounterSt. [facility]23 Miscellaneous Notes* Telephone Encounter - Rufina Mercado RN - 01/03/2023 6:12 PM EDT Spoke with patient. Given message from provider's office. Patient verbalizes understanding. Patientdeclined appointment at this time. States she may come into tonight. Rufina Mercado RN * Telephone Encounter - Ashli Garcia LPN - 01/03/2023 6:00 PM EDT Message left for patient to call office back for update. Ashli Garcia LPN * Telephone Encounter - Celi Murray MD - 01/03/2023 2:46 PM EDT I would like to see her in the office for this. It looks like she was seen for a possible abscess on and referred to surgery. I would like to make sure this is consistent with herpes and not a new skin infection/abscess. Can schedule with me or Amanda today as available. * Telephone Encounter - Javy Crook RN - 01/03/2023 2:26 PM EDT Patient reports she is having a herpes flare near her clitoris. Reports she gets flare ups every once in a while, for the past 10 years. Asking if provider would send acyclovir to [facility]. Statesshe prefers acyclovir over valacyclovir. Patient prefers not to come in for appt, stating she was just seen in [facility] 3 x's: had Uti, then BV, then a cyst. Hoping provider would send Rx to her pharmacy. Please advise if she needs an appt. Pended previous acyclovir in history-may need adjusted. Last ov: 09-27-22. documented in this encounterUniversity Hospitals Cleveland [facility] Center08-24-2023 Instructions* Patient Instructions* Britt Maza APRN.MANAGER PROVIDER RELATIONS - 12/28/2022 1:39 PM EDT ASSESSMENT/PLAN: 1. Infected cyst of skin - ICD9: 706.2, ICD10: L72.9, L08.9 - Begin treatment with doxycycline. Recently on Bactrim for UTI. - No lymphangetic streaking, this was defined for patient to watch for and to seek medical care immediately if appears - Follow up for recheck as needed. - Referral to general surgery E Kathya [employer] SALES DEPARTMENT MANAGER Student TEACHING PROVIDER (Physician/PA/MANAGER TRANSPORTATION) NOTE OF PERSONAL INVOLVEMENT IN CARE: I have personally seen and examined the patient and performed the medical decision-making components. I have reviewed the Advanced Practice Registered Nurse (MANAGER TRANSPORTATION) Student's documentation and verified the findings in the note as written. Any additions or changes are noted in bold/italics. Signature: Britt Maza Date: 12/28/2022 Time: 1:38 PM documented in this encounterUniversity Hospitals Cleveland [facility] Center08-24-2023 History of Present illness Narrative* Britt Maza APRN.MANAGER PROVIDER RELATIONS - 12/28/2022 1:22 PM EDT Images from the original note were not included. This note was created using Ubersenseriter. Subjective Reji Lorenzo is a 27 year old female. Patient presents with inflamed cyst in left groin that appeared three weeks ago. She reports that the cyst has been draining purulent fluid. She has been on antibiotics recently for UTI and has a history of MRSA. She reports occasional fever and chills, however attributes this to her current medications. She states this cyst has come and gone in the same location several times. The history is provided by the patient. Abscess Associated symptoms include chills and a fever. Pertinent negatives include no joint swelling or myalgias. Review of Systems Constitutional: Positive for chills and fever. Musculoskeletal: Negative for joint swelling and myalgias. Skin: Positive for color change and wound. All other systems reviewed and are negative. Objective BP 110/74 Pulse (!) 58 Temp 36.2 C (97.2 F) Resp 21 Wt 66.7 kg (147 lb) LMP 11/23/2022 (Within Days) SpO2 100% BMI 26.89 kg/m PAST MEDICAL HISTORY Diagnosis Date ADHD (attention deficit hyperactivity disorder) Anemia complicating 12/31/2014 Anxiety Bipolar disorder (HCC) Chlamydia Chronic active hepatitis (HCC) 03/01/2022 Depression fracture 11 years old collarbone Fracture age 7 left leg Hepatitis C Herpes simplex without mention of complication History of bleeding ulcers History of heroin use Ovarian cyst PID (acute pelvic inflammatory disease) Polysubstance abuse (HCC) Cocaine, heroin, benzos, methamphetamines Seizure (HCC) 03/01/2022 PAST SURGICAL HISTORY Procedure Laterality Date DELIVERY ONLY 04/16/2018 C/S low transverse ESOPHAGOGASTRODUODENOSCOPY TRANSORAL DIAGNOSTIC 06/08/2014 EGD LAPS SURG CHOLECYSTECTOMY W/CHOLANGIOGRAPHY 03/06/2022 PAST SURGICAL HISTORY OF 09/21/2021 fallopian tubes removed ALLERGIES Benadryl [Diphenhydramine Hcl], Clindamycin, and Penicillins MEDICATIONS buprenorphine ER (SUBLOCADE) 100 mg/0.5 mL injection Inject 100 mg subcutaneously one time only. doxycycline monohydrate 100 mg tablet Take 1 tablet by mouth twice daily for 7 days. FAMILY HISTORY Problem Relation Age of Onset Alcohol/Drug Mother Alcohol/Drug Father Seizures Sister other (SIDS) Brother Breast Cancer Maternal Grandmother Cancer Paternal Grandmother Lymphoma Cancer Paternal Grandfather Diabetes Paternal Grandfather Paternal/Materal sides Social History Tobacco Use Smoking status: Every Day Packs/day: 1.00 Years: 7.00 Additional pack years: 0.00 Total pack years: 7.00 Types: Cigarettes Start date: 03/17/2010 Smokeless tobacco: Never Vaping Use Vaping Use: current everyday user Substances: Nicotine Substance Use Topics Alcohol use: No Drug use: Not Currently Comment: kirill Monsivais at today's visit 03/16/2017 Physical Exam Vitals reviewed. Constitutional: General: She is not in acute distress. Appearance: Normal appearance. She is normal weight. She is not ill-appearing, toxic-appearing or diaphoretic. Skin: General: Skin is warm. Findings: Abscess and erythema present. Neurological: General: No focal deficit present. Mental Status: She is alert and oriented to person, place, and time. Mental status is at baseline. Psychiatric: Mood and Affect: Mood normal. Behavior: Behavior normal. Thought Content: Thought content normal. Judgment: Judgment normal. Assessment and Plan ASSESSMENT/PLAN: 1. Infected cyst of skin - ICD9: 706.2, ICD10: L72.9, L08.9 - Begin treatment with doxycycline. Recently on Bactrim for UTI. - No lymphangetic streaking, this was defined for patient to watch for and to seek medical care immediately if appears - Follow up for recheck as needed. - Referral to general surgery E Kathya [employer] SALES DEPARTMENT MANAGER Student TEACHING PROVIDER (Physician/PA/MANAGER TRANSPORTATION) NOTE OF PERSONAL INVOLVEMENT IN CARE: I have personally seen and examined the patient and performed the medical decision-making components. I have reviewed the Advanced Practice Registered Nurse (MANAGER TRANSPORTATION) Student's documentation and verified the findings in the note as written. Any additions or changes are noted in bold/italics. Signature: Britt Maza Date: 12/28/2022 Time: 1:38 PM documented in this encounterUniversity Hospitals [facility] Center08-15-2023 Miscellaneous Notes* Telephone Encounter - Katey Soto - 12/19/2022 2:21 PM EDT Patient given results and verbalized understanding of instructions given. Katey Soto * Telephone Encounter - Yelitza Miller APRN.CNP - 12/19/2022 2:06 PM EDT Please let patient know that was positive for BV, take metronidazole as ordered, no alcohol. All other testing was negative Yelitza Miller APRN.EDILBERTO documented in this encounterUniversity Hospitals [facility] Center08-14-2023 History of Present illness Narrative* Treasure Alejandra APRN.CNP - 12/18/2022 7:34 PM EDT This note was created using Ubersenseriter. Subjective Reji Lorenzo is a 27 year old female. 27 year old female with PMH GERD, seizure, depression, ADHD, bipolar presents for bacterial vaginosis. Acute onset 3 days ago +vaginal discharge +vinegar Denies vaginal bleeding. Denies sx. Endorses she was recently dx with UTI. Started on Bactrim and switched to Macrobid related to urine culture results Have had this before and it is BV I am sure Denies concerns for Denies abdominal pain Denies vaginal bleeding. The history is provided by the patient. No fleet operations manager was used. Vaginal Discharge This is a new problem. The current episode started more than 2 days ago. The problem occurs constantly. The problem has not changed since onset.The discharge occurs Spontaneously. The discharge was White and watery. She has not missed her period. Associated symptoms include perineal odor. Pertinentnegatives include no anorexia, no diaphoresis, no fever, no abdominal swelling, no abdominal pain, no constipation, no diarrhea, no nausea, no vomiting, no dyspareunia, no dysuria, no frequency, no genital burning, no genital itching, no genital lesions and no perineal pain. She has tried nothing for the symptoms. The treatment provided no relief. Her past medical history does not include irregular periods, PID, STD, ectopic , ovarian cysts or infertility. PAST MEDICAL HISTORY Diagnosis Date ADHD (attention deficit hyperactivity disorder) Anemia complicating 12/31/2014 Anxiety Bipolar disorder (HCC) Chlamydia Chronic active hepatitis (HCC) 03/01/2022 Depression fracture 11 years old collarbone Fracture age 7 left leg Hepatitis C Herpes simplex without mention of complication History of bleeding ulcers History of heroin use Ovarian cyst PID (acute pelvic inflammatory disease) Polysubstance abuse (HCC) Cocaine, heroin, benzos, methamphetamines Seizure (HCC) 03/01/2022 PAST SURGICAL HISTORY Procedure Laterality Date DELIVERY ONLY 04/16/2018 C/S low transverse ESOPHAGOGASTRODUODENOSCOPY TRANSORAL DIAGNOSTIC 06/08/2014 EGD LAPS SURG CHOLECYSTECTOMY W/CHOLANGIOGRAPHY 03/06/2022 PAST SURGICAL HISTORY OF 09/21/2021 fallopian tubes removed ALLERGIES Benadryl [Diphenhydramine Hcl], Clindamycin, and Penicillins MEDICATIONS nitrofurantoin monohydrate and macrocrystal (MACROBID) 100 mg capsule Take 1 capsule by mouth twicedaily for 5 days. buprenorphine ER (SUBLOCADE) 100 mg/0.5 mL injection Inject 100 mg subcutaneously one time only. metroNIDAZOLE (FLAGYL) 500 mg tablet Take 1 tablet by mouth twice daily for 7 days. FAMILY HISTORY Problem Relation Age of Onset Alcohol/Drug Mother Alcohol/Drug Father Seizures Sister other (SIDS) Brother Breast Cancer Maternal Grandmother Cancer Paternal Grandmother Lymphoma Cancer Paternal Grandfather Diabetes Paternal Grandfather Paternal/Materal sides Social History Tobacco Use Smoking status: Every Day Packs/day: 1.00 Years: 7.00 Additional pack years: 0.00 Total pack years: 7.00 Types: Cigarettes Start date: 03/17/2010 Smokeless tobacco: Never Vaping Use Vaping Use: current everyday user Substances: Nicotine Substance Use Topics Alcohol use: No Drug use: Not Currently Comment: kirill Monsivais at today's visit 03/16/2017 Review of Systems Constitutional: Negative for diaphoresis and fever. Eyes: Negative for pain, discharge and itching. Respiratory: Negative for apnea, choking and chest tightness. Cardiovascular: Negative for chest pain, palpitations and leg swelling. Gastrointestinal: Negative for abdominal pain, anorexia, constipation, diarrhea, nausea and vomiting. Genitourinary: Positive for vaginal discharge. Negative for dyspareunia, dysuria and frequency. Skin: Negative for color change, pallor, rash and wound. Allergic/Immunologic: Negative for environmental allergies, food allergies and immunocompromised state. Hematological: Negative for adenopathy. Does not bruise/bleed easily. Psychiatric/Behavioral: Negative for agitation and behavioral problems. Objective BP 110/69 Pulse 100 Temp 36.5 C (97.7 F) Resp 18 Wt 67.7 kg (149 lb 3.2 oz) LMP 11/23/2022 (Within Days) SpO2 97% BMI 27.29 kg/m Physical Exam Vitals and nursing note reviewed. Constitutional: General: She is not in acute distress. Appearance: Normal appearance. She is normal weight. She is not ill-appearing, toxic-appearing or diaphoretic. HENT: Head: Normocephalic and atraumatic. Right Ear: Ear canal and external ear normal. Left Ear: Ear canal and external ear normal. Nose: Nose normal. No congestion or rhinorrhea. Mouth/Throat: Mouth: Mucous membranes are moist. Pharynx: No oropharyngeal exudate or posterior oropharyngeal erythema. Eyes: General: Right eye: No discharge. Left eye: No discharge. Extraocular Movements: Extraocular movements intact. Conjunctiva/sclera: Conjunctivae normal. Pupils: Pupils are equal, round, and reactive to light. Cardiovascular: Rate and Rhythm: Normal rate and regular rhythm. Pulses: Normal pulses. Heart sounds: Normal heart sounds. No murmur heard. No friction rub. Pulmonary: Effort: Pulmonary effort is normal. No respiratory distress. Breath sounds: Normal breath sounds. No stridor. No wheezing, rhonchi or rales. Chest: Chest wall: No tenderness. Abdominal: General: Abdomen is flat. There is no distension. Palpations: Abdomen is soft. There is no mass. Tenderness: There is no abdominal tenderness. There is no right CVA tenderness, left CVA tenderness, guarding or rebound. Hernia: No hernia is present. Genitourinary: Comments: Declines pelvic exam Self swabs Musculoskeletal: General: No swelling, tenderness, deformity or signs of injury. Normal range of motion. Cervical back: Normal range of motion and neck supple. No rigidity. Right lower leg: No edema. Left lower leg: No edema. Lymphadenopathy: Cervical: No cervical adenopathy. Skin: General: Skin is warm and dry. Coloration: Skin is not jaundiced or pale. Findings: No bruising, erythema, lesion or rash. Neurological: General: No focal deficit present. Mental Status: She is alert and oriented to person, place, and time. Cranial Nerves: No cranial nerve deficit. Sensory: No sensory deficit. Motor: No weakness. Coordination: Coordination normal. Gait: Gait normal. Psychiatric: Mood and Affect: Mood normal. Behavior: Behavior normal. Thought Content: Thought content normal. Judgment: Judgment normal. Assessment and Plan ASSESSMENT/PLAN: 1. Vaginal discharge - ICD9: 623.5, ICD10: N89.8 X 2 days Endorses similar to BV in past Declines pelvic exam Self swab Declines waiting until cx return I have had this before RX Flagyl, declines suppository as was discussed the ATB she has been taking Along with concerns for colitis. - GABRIELA/TRICHOMONAS NAAT - BACTERIAL VAGINOSIS NAAT - METRONIDAZOLE 500 MG TABLET - GONORRHEA/CHLAMYDIA NAAT Treasure Alejandra APRN.MANAGER PROVIDER RELATIONS documented in this encounterUniversity Hospitals [facility] Center08-10-2023 History of Present illness Narrative* Pita Lujan RN - 12/14/2022 3:00 PM EDT 1505- Patient into clinic, she is not feeling well. States I feel like I am going through withdrawal, coming out of my skin. Dr Daily notified. Dr Daily in the building, patient sent to his office. 1522 - Dr Daily phoned this nurse, he requested an increase of Sublocade to 300mg. V.O. written and sent to pharmacy. 1530- Patient back into clinic. This nurse sat with patient and talked about various topics. 1545- This nurse signed for Sublocade. Administered to upper right abdomen per patient request. Patient thankful, has no further needs at this time. documented in this encounterSt. [facility]08-07-2023 History of Present illness Narrative* Aurelio Fulton MD - 12/11/2022 9:38 AM EDT Patient presents with: Urinary Frequency: Burning x2 days HPI: Symptoms started yesterday. Dysuria: Yes Frequency: Yes Hematuria: No Nausea: baseline Fever or chills: feels some chills since she is almost due for Sublocade injection Back pain: right flank. Feels a lump under the skin right lower back (present for some time) Abdominal pain: lower Prior UTI: Yes Personal history of kidney stones: No Family history of kidney stones: mother, brothers, uncles PAST MEDICAL HISTORY Diagnosis Date ADHD (attention deficit hyperactivity disorder) Anemia complicating 12/31/2014 Anxiety Bipolar disorder (HCC) Chlamydia Chronic active hepatitis (HCC) 03/01/2022 Depression fracture 11 years old collarbone Fracture age 7 left leg Hepatitis C Herpes simplex without mention of complication History of bleeding ulcers History of heroin use Ovarian cyst PID (acute pelvic inflammatory disease) Polysubstance abuse (HCC) Cocaine, heroin, benzos, methamphetamines Seizure (HCC) 03/01/2022 PAST SURGICAL HISTORY Procedure Laterality Date DELIVERY ONLY 04/16/2018 C/S low transverse ESOPHAGOGASTRODUODENOSCOPY TRANSORAL DIAGNOSTIC 06/08/2014 EGD LAPS SURG CHOLECYSTECTOMY W/CHOLANGIOGRAPHY 03/06/2022 PAST SURGICAL HISTORY OF 09/21/2021 fallopian tubes removed MEDICATIONS: Current Outpatient Medications Medication Sig buprenorphine ER (SUBLOCADE) 100 mg/0.5 mL injection Inject 100 mg subcutaneously one time only. lamoTRIgine (LAMICTAL) 100 mg tablet (Patient not taking: Reported on 12/11/2022) TRINTELLIX 10 mg tablet (Patient not taking: Reported on 12/11/2022) buprenorphine-naloxone (ZUBSOLV) 2.9-0.71 mg subl Dissolve 1 tablet under the tongue. (Patient not taking: Reported on 08/11/2022) acetaminophen (TYLENOL EXTRA STRENGTH ORAL) Take 1,000 mg by mouth as needed. (Patient not taking: Reported on 12/11/2022) lisdexamfetamine (VYVANSE) 10 mg capsule Take by mouth once daily. (Patient not taking: Reported on08/11/2022) SUBLOCADE 300 mg/1.5 mL injection 300 mg once every month. (Patient not taking: Reported on 08/11/2022) No current facility-administered medications for this visit. ALLERGIES: ALLERGIES Allergen Reactions Benadryl [Diphenhyd* Other: See Comments Hyper/anxiety Clindamycin Rash Rash and facial swelling Penicillins Rash VITALS: BP 108/64 Pulse 89 Temp 36.7 C (98.1 F) Resp 18 Wt 66 kg (145 lb 6.4 oz) LMP 11/23/2022 (Within Days) SpO2 98% BMI 26.59 kg/m PHYSICAL EXAM: GEN: NAD, leaving during plan discussion to get to another appointment. HEENT: EOMI, conjunctiva clear, HEART: regular rate and rhythm, no murmurs LUNGS: clear to auscultation, no wheezes or crackles, no increased WOB ABDOMEN: Soft, nondistended, no masses, suprapubic fullness BACK: No CVA tenderness. 1.5cm smooth soft mobile subcutaneous mass right mid lumbar area. ASSESSMENT/PLAN: 1. Urinary frequency - ICD9: 788.41, ICD10: R35.0 - UA positive for justo esterase, hematuria, proteinuria, and nitrates. Probable UTI. - UA DIP, URINE (POC) - URINE CULTURE Start - SULFAMETHOXAZOLE 800 MG-TRIMETHOPRIM 160 MG TABLET Probable lipoma right lower back is unrelated to current symptoms. Aurelio Fulton MD documented in this encounterUniversity Hospitals Cleveland [facility] Center07-14-2023 History of Present illness Narrative* Eleni Bui RN - 11/17/2022 3:00 PM EDT 1435- Patient arrived per ambulation, accompanied by self. Alert, oriented x 3. Assisted to recliner. Per patient's therapy plan, patient is due for hepatic function panel today. Patient states she has limited ride availability and cannot stay to wait for results today. Dr. Hatch contacted and he states patient's therapy plan should say hepatic function panel every 6 months. Pharmacy notified to update patient's therapy plan. Patient updated. Patient also states that she is considering switching providers to someone located closer to her home, requesting medical records be sent to physician'sofce. Contacted medical records who states to have patient initiate care with new physician and their office may request records. Patient updated and she verbalizes understanding. 1535- Discharged per ambulation, accompanied by self, in stable condition. Verbalizes understandingof instructions. 1550- Received phone call from patient who requests work excuse be faxed to a new day in [place]. Excuse printed and faxed. documented in this encounterSt. Charles Hospital05-15-2023 History of Present illness Narrative* Tsering Cortes RN - 09/18/2022 1:30 PM EDT 1323 arrives amb for injection. Voices no c/o.Pt states she has had this injection several times before with no problems.. Requests numbing agent to be applied to injection site prior to shot. 1345 Drug to sit out 15min before injection 1406 Injection given. Pt tolerated without c/o. Pt leaves amb documented in this encounterSt. Charles Hospital05-11-2023 History of Present illness Narrative* Sukhjinder Castano APRN.EDILBERTO - 09/14/2022 1:43 PM EDT Subjective HPI HPI Reji Lorenzo is a 26 year old female who presents today for CC of st, sinus pressure/congestion, body aches, h/a. This started 2 days ago. Has tried otc medication for relief. Symptoms are worsened by nothing. Risk factors recent possible covid exposures. .Patient presents with: Pain, Sinus: Sinus, congestion, bodyaches and JOHNSON x 2 days PAST MEDICAL HISTORY Diagnosis Date ADHD (attention deficit hyperactivity disorder) Anemia complicating 12/31/2014 Anxiety Bipolar disorder (HCC) Chlamydia Chronic active hepatitis (HCC) 03/01/2022 Depression fracture 11 years old collarbone Fracture age 7 left leg Hepatitis C Herpes simplex without mention of complication History of bleeding ulcers History of heroin use Ovarian cyst PID (acute pelvic inflammatory disease) Polysubstance abuse (HCC) Cocaine, heroin, benzos, methamphetamines Seizure (HCC) 03/01/2022 PAST SURGICAL HISTORY Procedure Laterality Date DELIVERY ONLY 04/16/2018 C/S low transverse ESOPHAGOGASTRODUODENOSCOPY TRANSORAL DIAGNOSTIC 06/08/2014 EGD LAPS SURG CHOLECYSTECTOMY W/CHOLANGIOGRAPHY 03/06/2022 PAST SURGICAL HISTORY OF 09/21/2021 fallopian tubes removed ALLERGIES Benadryl [Diphenhydramine Hcl], Clindamycin, and Penicillins MEDICATIONS lamoTRIgine (LAMICTAL) 100 mg tablet acetaminophen (TYLENOL EXTRA STRENGTH ORAL) Take 1,000 mg by mouth as needed. TRINTELLIX 10 mg tablet buprenorphine-naloxone (ZUBSOLV) 2.9-0.71 mg subl Dissolve 1 tablet under the tongue. (Patient not taking: Reported on 08/11/2022) lisdexamfetamine (VYVANSE) 10 mg capsule Take by mouth once daily. (Patient not taking: Reported on08/11/2022) SUBLOCADE 300 mg/1.5 mL injection 300 mg once every month. (Patient not taking: Reported on 08/11/2022) FAMILY HISTORY Problem Relation Age of Onset Alcohol/Drug Mother Alcohol/Drug Father Seizures Sister other (SIDS) Brother Breast Cancer Maternal Grandmother Cancer Paternal Grandmother Lymphoma Cancer Paternal Grandfather Diabetes Paternal Grandfather Paternal/Materal sides Social History Tobacco Use Smoking status: Every Day Packs/day: 1.00 Years: 7.00 Pack years: 7.00 Types: Cigarettes Start date: 03/17/2010 Smokeless tobacco: Never Vaping Use Vaping Use: current everyday user Substances: Nicotine Substance Use Topics Alcohol use: No Drug use: Not Currently Comment: kirill Monsivais at today's visit 03/16/2017 Review of Systems Constitutional: Positive for malaise/fatigue. Negative for fever. HENT: Positive for congestion and sore throat. Negative for ear pain and nosebleeds. Respiratory: Negative for cough, shortness of breath and wheezing. Musculoskeletal: Negative for neck pain. Skin: Negative for itching and rash. Neurological: Positive for headaches. Objective Blood pressure 106/64, pulse 66, temperature 36.6 C (97.8 F), temperature source Tympanic, resp. rate 18, weight 66.4 kg (146 lb 6.4 oz), last menstrual period 02/20/2022, SpO2 96 %, unknown if currently . Physical Exam Constitutional: General: She is not in acute distress. Appearance: She is not toxic-appearing or diaphoretic. HENT: Head: Normocephalic and atraumatic. Right Ear: Hearing, tympanic membrane, ear canal and external ear normal. Left Ear: Hearing, tympanic membrane, ear canal and external ear normal. Nose: Nose normal. Mouth/Throat: Pharynx: Uvula midline. No pharyngeal swelling, oropharyngeal exudate, posterior oropharyngeal erythema or uvula swelling. Eyes: General: Lids are normal. No scleral icterus. Right eye: No discharge. Left eye: No discharge. Conjunctiva/sclera: Conjunctivae normal. Pupils: Pupils are equal, round, and reactive to light. Neck: Trachea: Trachea normal. Cardiovascular: Rate and Rhythm: Normal rate and regular rhythm. Heart sounds: Normal heart sounds. Pulmonary: Effort: Pulmonary effort is normal. Breath sounds: Normal breath sounds. Musculoskeletal: Cervical back: Normal range of motion and neck supple. Lymphadenopathy: Cervical: No cervical adenopathy. Right cervical: No superficial cervical adenopathy. Left cervical: No superficial cervical adenopathy. Skin: Findings: No rash. Neurological: Mental Status: She is alert and oriented to person, place, and time. ASSESSMENT/PLAN: 1. URI, acute - ICD9: 465.9, ICD10: J06.9 - Discussed viral etiology and rationale for treatment. - Symptomatic treatment with prn analgesia - Supportive care with fluids and rest - Follow up in 3-5 days if symptoms persist or sooner if worsening of symptoms - COVID WITH FLUA+B, ROUTINE Sukhjinder Castano APRN.MANAGER PROVIDER RELATIONS documented in this encounterUniversity Hospitals [facility]04-07-2023 History of Present illness Narrative* Radha Alexis PA-C - 08/11/2022 12:28 PM EDT Chief Complaint Patient presents with: Derm Problem HPI Reji Lorenzo is a 26 year old female who presents here today for Above Complaints.. Patient states that over the past 6 months she has had lumps pop up all over her body. She has one on her back that is tender and increasing in size. Then in the past 1-2 months she has developed on on her left arm, posterior scalp and right jawline. All are tender. She has been having some dental issues. Recently had a few molars removed. B/l ear pain. No fever. Fm hx of lymphoma so she is concerned. Patient also upset with her recent weight gain. She states she was down to 130 last month and back up to 140s. She states her weight is a trigger to her for her past drug addiction. Last 3 Encounter Wt Readings: Date: Wt: 08/11/2022 64 kg (141 lb) 06/07/2022 63 kg (139 lb) 03/17/2022 64.3 kg (141 lb 12.8 oz) Past medical history, appointments, medications, allergies reviewed. Previous Medical History PAST MEDICAL HISTORY Diagnosis Date ADHD (attention deficit hyperactivity disorder) Anemia complicating 12/31/2014 Anxiety Bipolar disorder (HCC) Chlamydia Chronic active hepatitis (HCC) 03/01/2022 Depression fracture 11 years old collarbone Fracture age 7 left leg Hepatitis C Herpes simplex without mention of complication History of bleeding ulcers History of heroin use Ovarian cyst PID (acute pelvic inflammatory disease) Polysubstance abuse (HCC) Cocaine, heroin, benzos, methamphetamines Seizure (HCC) 03/01/2022 Previous Surgical History PAST SURGICAL HISTORY Procedure Laterality Date DELIVERY ONLY 04/16/2018 C/S low transverse ESOPHAGOGASTRODUODENOSCOPY TRANSORAL DIAGNOSTIC 06/08/2014 EGD LAPS SURG CHOLECYSTECTOMY W/CHOLANGIOGRAPHY 03/06/2022 PAST SURGICAL HISTORY OF 09/21/2021 fallopian tubes removed Family History FAMILY HISTORY Problem Relation Age of Onset Alcohol/Drug Mother Alcohol/Drug Father Seizures Sister other (SIDS) Brother Breast Cancer Maternal Grandmother Cancer Paternal Grandmother Lymphoma Cancer Paternal Grandfather Diabetes Paternal Grandfather Paternal/Materal sides Patient Allergies ALLERGIES Allergen Reactions Benadryl [Diphenhyd* Other: See Comments Hyper/anxiety Clindamycin Rash Rash and facial swelling Penicillins Rash Current Medications Current Outpatient Medications on File Prior to Visit Medication Sig lamoTRIgine (LAMICTAL) 100 mg tablet TRINTELLIX 10 mg tablet acetaminophen (TYLENOL EXTRA STRENGTH ORAL) Take 1,000 mg by mouth as needed. buprenorphine-naloxone (ZUBSOLV) 2.9-0.71 mg subl Dissolve 1 tablet under the tongue. (Patient not taking: Reported on 08/11/2022) lisdexamfetamine (VYVANSE) 10 mg capsule Take by mouth once daily. (Patient not taking: Reported on08/11/2022) SUBLOCADE 300 mg/1.5 mL injection 300 mg once every month. (Patient not taking: Reported on 08/11/2022) No current facility-administered medications on file prior to visit. Social History Social History Tobacco Use Smoking status: Every Day Packs/day: 1.00 Years: 7.00 Pack years: 7.00 Types: Cigarettes Start date: 03/17/2010 Smokeless tobacco: Never Vaping Use Vaping Use: current everyday user Substances: Nicotine Substance Use Topics Alcohol use: No Drug use: Not Currently Comment: Wilmakirill lauren at today's visit 03/16/2017 Review of Symptoms REVIEW OF SYSTEMS See hpi EXAM: BP 120/86 (BP Site: Left Arm, BP Position: Sitting, BP Cuff Size: Regular Adult) Pulse 100 Temp36.9 C (98.5 F) Resp 16 Wt 64 kg (141 lb) LMP 02/20/2022 BMI 25.79 kg/m General Appearance: Well appearing, alert, in no acute distress, well-hydrated, well nourished.. Skin: lump #1: right posterior back. About 2cm round. Tender to palp. Lump #2. Left posterior upper arm near elbow. Appox 1cm tender. Lump #3: right occipital region. Question if lymph node. Tender to palp. Lump #4: right jaw line lyph node. Tender. . Ears: External ears normal, canals clear. Oropharynx: poor dentition. + cheilitis on right side. No oral erythema. Health Maintenance List COVID-19 VACCINE(1) Never done HEPATITIS A(1 of 2 - Risk 2-dose series) Never done PNEUMOCOCCAL(1 - PCV) Never done HPV VACCINE(1 - 2-dose series) Never done PAP TESTING due on 09/13/2020 INFLUENZA(Season Ended) due on 01/05/2023 DTAP,TDAP,TD(9 - Td or Tdap) due on 03/05/2028 HEPATITIS B Completed HEPATITIS C SCREENING Completed HIV SCREENING Completed Data reviewed ASSESSMENT/PLAN: 1. Lump of skin - ICD9: 782.2, ICD10: R22.9 (primary diagnosis) Lumps on back and arm consistent with lipomas. Will get US of larger mass on back. Could consider bx if continues to be painful or grows - US CHEST WALL/SOFT TISSUE 2. Lymphadenopathy - ICD9: 785.6, ICD10: R59.1 Lumps in neck/jaw more consistent with lymphadenapthy. Given poor dentition, ear pain and noted cheilitis, will tx with antibiotic. Check labs. May need US/CT if not improving. - CBC + DIFF 3. Weight gain - ICD9: 783.1, ICD10: R63.5 Weight has been stable per [facility] records but given patient's home reading of low 130s last month, willcheck TSH level. Advised patient that she wouldn't qualify for most weight loss medication as BMI is under 28. - TSH BLD 4. Exposure to sexually transmitted disease (STD) - ICD9: V01.6, ICD10: Z20.2 Patient requests HIV and syphilis screen. She will see micro computer specialist for any further concerns. - HIV 1 2 COMBO(AG/AB),WITH REFLEX TO DIFFERENTIATION - SYPHILIS TOTAL W/REFLEX Will have patient set up a 1 month follow up to re-evaluate patient's current symptoms and have another weight check. Discussed possible red flags and when to seek medical attention. Radha Alexis PA-C documented in this encounterUniversity Hospitals [facility]02-01-2023 History of Present illness Narrative* Clau Nicole PA-C - 06/07/2022 11:58 AM EST This note was created using Ubersenseriter. Subjective Reji Lorenzo is a 26 year old female. HPI Patient presents with chief complaint of constipation. She has had history of chronic constipation off and on over the past several years. She was on an injection of buprenorphine on until 2 weeks ago and was having better luck with constipation. She was started on the sublingual buprenorphine/naloxone 2 weeks ago instead due to insurance reasons and constipation returned. She has tried MiraLAX, senna and Colace [id number]. Has not tried an enema. She did have some abdominal pain yesterday but none today. No fever. No vomiting. She has had a cholecystectomy in February 2022. Review of Systems Constitutional: Negative. HENT: Negative. Respiratory: Negative. Cardiovascular: Negative. Gastrointestinal: Positive for constipation. Negative for blood in stool and diarrhea. All other systems reviewed and are negative. PAST MEDICAL HISTORY Diagnosis Date ADHD (attention deficit hyperactivity disorder) Anemia complicating 12/31/2014 Anxiety Bipolar disorder (HCC) Chlamydia Chronic active hepatitis (HCC) 03/01/2022 Depression fracture 11 years old collarbone Fracture age 7 left leg Hepatitis C Herpes simplex without mention of complication History of bleeding ulcers History of heroin use Ovarian cyst PID (acute pelvic inflammatory disease) Polysubstance abuse (HCC) Cocaine, heroin, benzos, methamphetamines Seizure (HCC) 03/01/2022 Current Outpatient Medications Medication Sig Dispense Refill buprenorphine-naloxone (ZUBSOLV) 2.9-0.71 mg subl Dissolve 1 tablet under the tongue. acetaminophen (TYLENOL EXTRA STRENGTH ORAL) Take 1,000 mg by mouth as needed. lisdexamfetamine (VYVANSE) 10 mg capsule Take by mouth once daily. SUBLOCADE 300 mg/1.5 mL injection 300 mg once every month. sodium phosphate-sodium bisphosphate (FLEET ENEMA) enema 133 mL by RECTAL route one time only for 1dose. 133 mL 0 No current facility-administered medications for this visit. PAST SURGICAL HISTORY Procedure Laterality Date DELIVERY ONLY 04/16/2018 C/S low transverse ESOPHAGOGASTRODUODENOSCOPY TRANSORAL DIAGNOSTIC 06/08/2014 EGD LAPS SURG CHOLECYSTECTOMY W/CHOLANGIOGRAPHY 03/06/2022 PAST SURGICAL HISTORY OF 09/21/2021 fallopian tubes removed FAMILY HISTORY Problem Relation Age of Onset Alcohol/Drug Mother Alcohol/Drug Father Seizures Sister other (SIDS) Brother Breast Cancer Maternal Grandmother Cancer Paternal Grandmother Lymphoma Cancer Paternal Grandfather Diabetes Paternal Grandfather Paternal/Materal sides Social History Tobacco Use Smoking status: Every Day Packs/day: 1.00 Years: 7.00 Pack years: 7.00 Types: Cigarettes Start date: 03/17/2010 Smokeless tobacco: Never Vaping Use Vaping Use: current everyday user Substances: Nicotine Substance Use Topics Alcohol use: No Drug use: Not Currently Comment: kirill Monsivais at today's visit 03/16/2017 Objective BP 110/80 Pulse 66 Temp 36.1 C (97 F) (Tympanic) Resp 18 Wt 63 kg (139 lb) LMP 02/20/2022 SpO2 99% BMI 25.42 kg/m Physical Exam Vitals reviewed. Constitutional: Appearance: Normal appearance. HENT: Head: Normocephalic and atraumatic. Cardiovascular: Rate and Rhythm: Normal rate and regular rhythm. Heart sounds: Normal heart sounds. Pulmonary: Effort: Pulmonary effort is normal. Breath sounds: Normal breath sounds. Abdominal: Tenderness: There is no right CVA tenderness or left CVA tenderness. Comments: Mild suprapubic ttp. Musculoskeletal: Cervical back: Neck supple. Skin: General: Skin is warm and dry. Neurological: Mental Status: She is alert. Assessment and Plan ASSESSMENT/PLAN: 1. Constipation, unspecified constipation type - ICD9: 564.00, ICD10: K59.00 X-ray shows stool in the descending colon. Nonobstructive pattern. Discussed with her that she has tried the typical oral medications that we would use for constipation acutely. Recommended that she use an enema and fleets enema was prescribed. Patient adamantly refusing this. Discussed with her would recommend follow-up with PCP, she had some questions regarding linzess. Discussed that this is prescribed by GI or pcp, we don't write that medication at [facility]. - XR ABDOMEN 1V SUPINE Clau Nicole PA-C documented in this encounterUniversity Hospitals [facility] Center02-01-2023 History of Present illness Narrative* Jackson Quintero RT(R) - 06/07/2022 11:40 AM EST Radiology Service Progress Note PATIENT NAME: Reji Lorenzo DATE OF SERVICE: June 07, 2022 TIME: 11:35 AM PATIENT IDENTITY VERIFICATION COMPLETED USING TWO (2) IDENTIFIERS: Name and Date of confirmedby patient verbally. FALL SCREENING: Has the patient had 2 falls in the last year or 1 fall with injury or currently using an Ambulatory Assistive Device (Walker, Cane, Wheelchair, Crutches, etc.)? No PATIENT GENDER DATA: Female. status: : No status: NO. PATIENT RELEVANT IMPLANT DATA REVIEWED: Not Applicable RADIOLOGY DEPARTMENT: General X-ray: Exam(s) Completed: Abdomen X-Ray: Abdomen PERIPHERAL IV DATA: Not applicable SIGNED BY: RT Fernando(R) June 07, 2022 11:35 AM documented in this encounterUniversity Hospitals [facility] Center11-11-2022 History of Present illness Narrative* Gerry Cantu MD - 03/17/2022 12:29 PM EST FOLLOW UP VISIT - CHOLECYSTECTOMY NAME: Reji Lion [facility] NO.: [id number] DATE OF SERVICE: 03/17/2022 : 1995 REFERRING PHYSICIAN: Celi Murray MD Reji is a patient I am following for a complaint of right upper quadrant pain. Reji is a 26 year old female with a complaint of right upper quadrant pain. The patient has had symptoms of right upper quadrant pain for 1 month. The symptoms have increased, over the past few weeks. The pain does radiate to the back and shoulder. Food does aggravate her symptoms. Alleviating factors include: none. The patient was seen by her primary care physician 1 day ago. Reji underwent an ultrasound. These tests demonstrated cholelithiasis. The patient is referred for evaluation and treatment. The patient has a previous history of significant drug abuse. She had used intravenous drugs from May 2018 till February 2021. The patient is currently hepatitis C positive. She has not received antivirals for hepatitis C. Her last viral titer was February 2021 with a viral load of 80,000. She understands she had a viral titer performed at an outside institution but do not have records of this. She is currently in recovery and sees Dr. Robles for Suboxone she is getting injections currently. She had been on oral pills in the past. She concerned about postoperative pain. The patient is being seen by me at the request of Dr. Celi Murray MD for my opinion and advice regarding cholelithiasis and untreated hepatitis C. I performed a laparoscopic cholecystectomy with intraoperative choleangiogram on March 06, 2022. Patient's liver looked very healthy so I did not perform a liver biopsy. She did have adhesions to the gallbladder consistent with previous cholecystitis and had small stones in her cystic duct but nostones on cholangiogram. Surgery was uneventful.. The patient currently notes that Suboxone did notreally help her pain postoperatively but a heating pad and nonsteroidals did help. So noted what she thought was some scant drainage from her umbilical and medial 5 port but this is now resolved. herappetite has been good. she denies fever, chills or abdominal pain. she does note some proving incisional discomfort. VITALS: Blood pressure 98/68, pulse 98, temperature 36.6 C (97.8 F), height 157.5 cm (5' 2), weight 64.3 kg (141 lb 12.8 oz), last menstrual period 02/20/2022, SpO2 97 %, unknown if currently . On examination, the abdomen is benign. The incisions are healing well without signs of infection orinflammation. Assessment IMPRESSION: status post laparoscopic cholecystectomy with intraoperative cholangiogram PLAN: If the patient notes any problems, she should contact me immediately. she may return to her regularactivities as tolerated, with the exception of no lifting greater than 20 pounds for the next 4 weeks. The patient is to contact me immediately is she experiences any of her preoperative symptoms. Wediscussed that occasional right up quadrant symptoms similar to the preoperative complaints can occur in the first couple of weeks post operatively. If this persists beyond the first 2-3 weeks, they should contact our office. Diagnoses: (K80.20) Calculus of gallbladder without cholecystitis without obstruction (primary encounter diagnosis) (K73.2) Chronic active hepatitis (HCC) Return to Clinic: The patient is instructed to follow-up with me as needed. Gerry Cantu MD documented in this encounterUniversity Hospitals [facility] Center11-10-2022 Miscellaneous Notes* Telephone Encounter - Maggie Bhakta RN - 03/16/2022 10:05 AM EST Returned patients call, she stated she received no written discharge instructions after the procedure. She stated the incision looked infected, with purulent drainage that she described as greenish yellow. She stated she washed the incision with peroxide, and applied some antibiotic ointment to the incision. She also stated that the incision looked gapped open like it wasn't entirely closing,however she also removed the steri strips. Patient had f/u appointment scheduled for today at 11:00a.m. but she cancelled due to another appointment. This Nurse advised the patient she needed an appointment to be evaluated, she stated she wouldn't be able to come in today, I made her an appointment for tomorrow at 11:00 a.m. Maggie Bhakta RN * Telephone Encounter - [place], [place] - 03/16/2022 8:52 AM EST Pt would like to talk to someone about her incision. She said part of it does not look like it is healing as it should. Pt had to cancel today's office visit due to her son being ill. 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 Staffing RN TEAM LEADER: Aamir Moeller APRN.RN TEAM LEADER Indications and Patient Condition Indications for airway management: anesthesia Preoxygenated: yes anesthesia circuit Method: sleep Cricoid Pressure: No Manual In-Line Stabilization: No Difficult Mask: No Final Airway Details Final airway type: endotracheal airway Final Endotracheal Airway: ETT Cuffed: yes Successful intubation technique: direct laryngoscopy Blade: Jeannette Blade size: #3 ETT size (mm): 7.0 Measured from: lips Measurement (cm): 20 Placement verified by: chest auscultation and capnometry Cormack-Lehane Classification: grade I - full view of glottis Number of attempts at approach: 1 Failed airway: no Unrecognized esophageal intubation: no Airway not difficult SIGNATURE: Aamir Moeller APRN.RN TEAM LEADER PATIENT NAME: Reji Lorenzo DATE: March 06, 2022 TIME: 9:32 AM CSN: [id number] History of Present illness Narrative* Gerry Cantu MD - 02/16/2022 7:02 PM EDT HISTORY AND PHYSICAL Reji Lorenzo 1995 REFERRING PHYSICIAN: Celi Murray,* CHIEF COMPLAINT: Consult (gallbladder) HPI: Reji is a 26 year old female with a complaint of right upper quadrant pain. The patient hashad symptoms of right upper quadrant pain for 1 month. The symptoms have increased, over the past few weeks. The pain does radiate to the back and shoulder. Food does aggravate her symptoms. Alleviating factors include: none. The patient was seen by her primary care physician 1 day ago. Reji underwent an ultrasound. These tests demonstrated cholelithiasis. The patient is referred for evaluation and treatment. The patient has a previous history of significant drug abuse. She had used intravenous drugs from May 2018 till February 2021. The patient is currently hepatitis C positive. She has not received antivirals for hepatitis C. Her last viral titer was February 2021 with a viral load of 80,000. She understands she had a viral titer performed at an outside institution but do not have records of this. She is currently in recovery and sees Dr. Robles for Suboxone she is getting injections currently. She had been on oral pills in the past. She concerned about postoperative pain. The patient is being seen by me today at the request of Dr. Celi Murray MD for my opinion and advice regarding cholelithiasis and untreated hepatitis C. SIGNIFICANT MEDICAL PROBLEMS: PAST MEDICAL HISTORY Diagnosis Date ADHD (attention deficit hyperactivity disorder) Anemia complicating 12/31/2014 Anxiety Bipolar disorder (HCC) Chlamydia Depression fracture 11 years old collarbone Fracture age 7 left leg Hepatitis C Herpes simplex without mention of complication History of bleeding ulcers History of heroin use Ovarian cyst PID (acute pelvic inflammatory disease) Polysubstance abuse (HCC) Cocaine, heroin, benzos, methamphetamines OPERATIONS: PAST SURGICAL HISTORY Procedure Laterality Date DELIVERY ONLY 04/16/2018 C/S low transverse ESOPHAGOGASTRODUODENOSCOPY TRANSORAL DIAGNOSTIC 06/08/2014 EGD PAST SURGICAL HISTORY OF 09/21/2021 fallopian tubes removed CURRENT MEDICATIONS: Current Outpatient Medications Medication Sig Dispense Refill SUBLOCADE 300 mg/1.5 mL injection 300 mg once every month. albuterol HFA (PROVENTIL HFA, VENTOLIN HFA) 90 mcg/actuation inhaler Inhale 2 Puffs as instructed every 4 hours as needed for wheezing/shortness of breath. 8 g 0 gabapentin (NEURONTIN) 600 mg tablet Take 600 mg by mouth twice daily. cloNIDine HCl (CATAPRES) 0.1 mg tablet Take 0.1 mg by mouth four times daily. venlafaxine ER (EFFEXOR XR) 150 mg 24 hr capsule Take 150 mg by mouth once daily. No current facility-administered medications for this visit. ALLERGIES: Benadryl [Diphenhydramine Hcl], Clindamycin, and Penicillins PERSONAL HISTORY: Social History Tobacco Use Smoking status: Every Day Packs/day: 1.00 Years: 7.00 Pack years: 7.00 Types: Cigarettes Start date: 03/17/2010 Smokeless tobacco: Never Vaping Use Vaping Use: current everyday user Substances: Nicotine Substance Use Topics Alcohol use: No Drug use: Yes Comment: kirill Monsivais at today's visit 03/16/2017 FAMILY HISTORY: FAMILY HISTORY Problem Relation Age of Onset Alcohol/Drug Mother Alcohol/Drug Father Seizures Sister other (SIDS) Brother Breast Cancer Maternal Grandmother Cancer Paternal Grandmother Lymphoma Cancer Paternal Grandfather Diabetes Paternal Grandfather Paternal/Materal sides REVIEW OF SYMPTOMS: The review of systems data was entered by the nurse and reviewed by wy Nursing Notes: Tin Mason LPN 02/16/2022 10:57 AM Signed REVIEW OF SYSTEMS: General: The patient notes fatigue, notes weight loss, denies weight gain, denies feeling hot, and denies feelings of cold. Eyes: The patient denies glaucoma, denies eye injury/surgery, wears glasses or contacts. Ear/Nose/Throat: The patient notes allergies, denies hayfever, denies ear infections, and denies bloody noses. Cardiovascular: The patient denies chest pain, denies heart disease, denies high blood pressure,denies cardiac stent, denies prior heart attack, denies irregular heart beat, denies high cholesterol, denies poor circulation, denies heart failure, other cardiac issues, denies claudication, denies cold feet, denies peripheral arterial stent. Respiratory: The patient denies tuberculosis, denies pneumonia, denies frequent cough, denies pulmonary embolism, denies shortness of breath, and denies coughing up blood. Gastrointestinal: The patient denies difficulty swallowing, denies acid reflux, notes ulcers, notesvomiting, notes hepatitis, notes gallbladder problems, denies black or tarry stools, notes hemorrhoids, denies bleeding from rectum, denies diverticulitis, notes constipation, denies diarrhea, deniesloss of stool control, and denies hernias. Kidney/Bladder: The patient denies kidney stones, notes urine infections, and denies bloody urine. Skin: The patient denies a history of skin cancer, denies bleeding/changing moles, and denies a history of skin rash. Neurologic: The patient denies a history of epilepsy/convulsions, denies headaches, denies head/spinal injuries, and denies stroke/TIA. Psychiatric: The patient notes psychiatric medications, denies depression, and denies voices, notessubstance abuse. Endocrine: The patient denies thyroid disorders, denies diabetes, and denies hormonal problems. Hematologic: The patient denies a history of bruising, denies bleeding, and denies anemia, denies blood clots. Infections: The patient denies a history of measles and mumps, denies rheumatic fever, and denies sexually transmitted diseases. Musculoskeletal: The patient denies back pain/injury, denies back problems, denies sciatica, deniesknee/foot trouble, denies arthritis, or denies gout. When was patient's last Mammogram screening? None Last Colonoscopy: none Tin Mason LPN PHYSICAL EXAMINATION: General: The patient is 26 year old female, well nourished, well hydrated in no acute distress. Thepatient is oriented to time, place, and person. VITALS: Blood pressure 100/58, pulse 94, temperature 36.5 C (97.7 F), height 157.5 cm (5' 2), weight 64.4 kg (142 lb), last menstrual period 02/15/2022, SpO2 99 %, unknown if currently . Body mass index is 25.97 kg/m . HEENT: Normal cephalic, ataumatic, pupils are equally round, sclera are anicteric, mucous membranesare moist, oropharynx is clear. Neck has no masses, asymmetry or lymphadenopathy. Thyroid is unremarkable. Respiratory: Clear to auscultation and percussion. Normal respiratory excursion and pattern. Cardiac: Examination is regular rate and rhythm. Abdominal exam: Normoactive bowel sounds, Soft, tender in the right upper quadrant, with no palpable masses. No hepatosplenomegaly. No palpable hernias. Rectal exam: exam deferred Extremities: no clubbing, cyanosis or edema. No adenopathy. Other: LABORATORY VALUES: As Noted RADIOLOGIC STUDIES: As Noted Above Assessment IMPRESSION: Cholelithiasis, Hepatitis C PLAN: My plan is to perform a laparoscopic cholecystectomy with intraoperative choleangiogram. The planned surgical procedure was discussed extensively with the patient. The risks, benefits, anticipated outcomes and possible complications were mentioned. My staff has also explained the procedure in understandable terms and the patient was given the option to take printed material concerning the planned procedure. The patient had the opportunity to ask questions concerning the planned procedure.The patient freely consents to the planned procedure. I will forward this message to Dr. Robles so she can prescribe additional medications if needed thatare consistent with her recovery plan. Otherwise I recommend the patient take nonsteroidal medications-Advil or ibuprofen I have also ordered a updated hepatitis viral load. The patient relays to me that Dr. Robles was planning to start her on hepatitis C antiviral treatment course Planned Procedure: LAPAROSCOPIC CHOLECYSTECTOMY WITH INTRAOPERATIVE CHOLEANGIOGRAM - 94268-423 Planned antibiotic: Cipro 400mg IVPB SCDs needed - Yes Ecommerce Marketing Manager Needed - Yes Diagnoses: (K73.2) Chronic active hepatitis (HCC) (primary encounter diagnosis) (R10.11) RUQ pain (K80.20) Calculus of gallbladder without cholecystitis without obstruction My findings have been communicated to Dr. Celi Murray MD via shared medical record. Thisnote will be forwarded to Dr. Celi Murray MD. Gerry Cantu MD documented in this encounterUniversity Hospitals Cleveland Medical Center10-13-2022 Miscellaneous Notes* Telephone Encounter - Jennifer Lozano LPN - 02/16/2022 1:07 PM EDT Phoned patient and updated her with results and providers recommendations. Patient voiced understanding. * Telephone Encounter - Jennifer Lozano LPN - 02/16/2022 1:05 PM EDT ----- Message from Celi Murray MD sent at 02/16/2022 10:41 AM EDT ----- Labs negative for pancreatitis, signs of acute infection. Liver function remains elevated and is actually improved from 1 year ago. Other labs normal. Recommend follow up with general surgery to discuss removal of gallbladder for gallstones. Continue diet as discussed. Call if symptoms change or worsen. documented in this encounterUniversity Hospitals Cleveland Medical Center10-13-2022 Nurse Note* Tin Mason LPN - 02/16/2022 10:56 AM EDT REVIEW OF SYSTEMS: General: The patient notes fatigue, notes weight loss, denies weight gain, denies feeling hot, and denies feelings of cold. Eyes: The patient denies glaucoma, denies eye injury/surgery, wears glasses or contacts. Ear/Nose/Throat: The patient notes allergies, denies hayfever, denies ear infections, and denies bloody noses. Cardiovascular: The patient denies chest pain, denies heart disease, denies high blood pressure,denies cardiac stent, denies prior heart attack, denies irregular heart beat, denies high cholesterol, denies poor circulation, denies heart failure, other cardiac issues, denies claudication, denies cold feet, denies peripheral arterial stent. Respiratory: The patient denies tuberculosis, denies pneumonia, denies frequent cough, denies pulmonary embolism, denies shortness of breath, and denies coughing up blood. Gastrointestinal: The patient denies difficulty swallowing, denies acid reflux, notes ulcers, notesvomiting, notes hepatitis, notes gallbladder problems, denies black or tarry stools, notes hemorrhoids, denies bleeding from rectum, denies diverticulitis, notes constipation, denies diarrhea, deniesloss of stool control, and denies hernias. Kidney/Bladder: The patient denies kidney stones, notes urine infections, and denies bloody urine. Skin: The patient denies a history of skin cancer, denies bleeding/changing moles, and denies a history of skin rash. Neurologic: The patient denies a history of epilepsy/convulsions, denies headaches, denies head/spinal injuries, and denies stroke/TIA. Psychiatric: The patient notes psychiatric medications, denies depression, and denies voices, notessubstance abuse. Endocrine: The patient denies thyroid disorders, denies diabetes, and denies hormonal problems. Hematologic: The patient denies a history of bruising, denies bleeding, and denies anemia, denies blood clots. Infections: The patient denies a history of measles and mumps, denies rheumatic fever, and denies sexually transmitted diseases. Musculoskeletal: The patient denies back pain/injury, denies back problems, denies sciatica, deniesknee/foot trouble, denies arthritis, or denies gout. When was patient's last Mammogram screening? None Last Colonoscopy: none Tin Mason LPN documented in this encounterUniversity Hospitals Cleveland Medical Center10-12-2022 History of Present illness Narrative* Celi Murray MD - 02/15/2022 1:20 PM EDT Chief Complaint Patient presents with: Abdominal Pain: X1 month; RUQ with radiation to back and lower abdomen; pain is intermittent, lasts30 min-1hr; + vomiting; no diarrhea HPI Reji Lorenzo is a 26 year old female who presents here today for Above Complaints. Patient states that for the last 2 months has been getting intermittent RUQ abdominal pain which radiates around her back and into her shoulder blades. Described as aching/stabbing pain. Associated with chills, sweating, and vomiting. Pain triggered by eating and will last for about 30-60 minutes. Has tried ibuprofen without much improvement. Admits to constipation with last BM yesterday which was hard. Denies fever, diarrhea, hematochezia, melena, vaginal bleeding/discharge, alcohol abuse/use,heartburn, recent injury. Had some dysuria last week and was given Macrobid by Dr. Robles's office. Only took a couple of pills. Admits to urinary frequency. RUQ US obtained on 02/[address] Robles which showed mild hepatomegaly and contracted stone filled gallbladder. Negative sonographic Graham's sign. Denies possible . Fallopian tubes removed in September. Past medical history, appointments, medications, allergies reviewed. Previous Medical History PAST MEDICAL HISTORY Diagnosis Date Anemia complicating 12/31/2014 Anxiety Bipolar disorder (HCC) Chlamydia Depression fracture 11 years old collarbone Fracture age 7 left leg Herpes simplex without mention of complication History of bleeding ulcers History of heroin use Ovarian cyst PID (acute pelvic inflammatory disease) Polysubstance abuse (HCC) Cocaine, heroin, benzos, methamphetamines Previous Surgical History PAST SURGICAL HISTORY Procedure Laterality Date DELIVERY ONLY 04/16/2018 C/S low transverse ESOPHAGOGASTRODUODENOSCOPY TRANSORAL DIAGNOSTIC 06/08/14 EGD Family History FAMILY HISTORY Problem Relation Age of Onset Alcohol/Drug Mother Alcohol/Drug Father Seizures Sister other (SIDS) Brother Breast Cancer Maternal Grandmother Cancer Paternal Grandmother Lymphoma Cancer Paternal Grandfather Diabetes Paternal Grandfather Paternal/Materal sides Patient Allergies ALLERGIES Allergen Reactions Benadryl [Diphenhyd* Other: See Comments Hyper/anxiety Clindamycin Rash Rash and facial swelling Penicillins Rash Current Medications Current Outpatient Medications on File Prior to Visit Medication Sig albuterol HFA (PROVENTIL HFA, VENTOLIN HFA) 90 mcg/actuation inhaler Inhale 2 Puffs as instructed every 4 hours as needed for wheezing/shortness of breath. gabapentin (NEURONTIN) 600 mg tablet Take 600 mg by mouth twice daily. cloNIDine HCl (CATAPRES) 0.1 mg tablet Take 0.1 mg by mouth four times daily. venlafaxine ER (EFFEXOR XR) 150 mg 24 hr capsule Take 150 mg by mouth once daily. No current facility-administered medications on file prior to visit. Social History Social History Tobacco Use Smoking status: Every Day Packs/day: 1.00 Years: 7.00 Pack years: 7.00 Types: Cigarettes Start date: 03/17/2010 Smokeless tobacco: Never Substance Use Topics Alcohol use: No Drug use: Yes Comment: kirill Monsivais at today's visit 03/16/2017 Review of Symptoms REVIEW OF SYSTEMS See HPI EXAM: BP 108/62 Pulse 68 Resp 18 Wt 64.4 kg (142 lb) LMP 02/15/2022 SpO2 95% BMI 26.40 kg/m General Appearance: Well appearing, alert, in no acute distress, well-hydrated, well nourished.. Skin: Skin color, texture, turgor normal, no suspicious rashes or lesions. Lungs: Lungs clear to auscultation. No wheezing, rhonchi, rales.. Heart: RRR without murmur, gallop, or rubs. No ectopy. Abdomen: Abdomen soft. Bowel sounds normal. No masses, organomegaly, Negative CVA tenderness, Positive findings: tenderness mild RUQ without guarding or rebound. Health Maintenance List COVID-19 VACCINE(1) Never done PNEUMOCOCCAL(1 - PCV) Never done HPV VACCINE(1 - 2-dose series) Never done PAP TESTING due on 09/13/2020 INFLUENZA(1) due on 01/05/2022 DTAP,TDAP,TD(9 - Td or Tdap) due on 03/05/2028 HEPATITIS B Completed HEPATITIS C SCREENING Completed HIV SCREENING Completed Data reviewed Component Latest Ref Rng & Units 02/15/2022 GLUCOSE UA (POCT) Negative mg/dL Negative BILIRUBIN UA (POCT) Negative Negative KETONE UA (POCT) Negative mg/dL Negative SPECIFIC GRAVITY UA (POCT) 1.005 - 1.030 1.025 HEMOGLOBIN/BLOOD UA (POCT) Negative Negative PH UA (POCT) 4.5 - 8.0 7.0 PROTEIN UA (POCT) Negative mg/dL Negative UROBILINOGEN UA (POCT) Normal E.U./dL 0.2 NITRITE UA (POCT) Negative Negative LEUKOCYTES UA (POCT) Negative Negative COLOR UA (POCT) Yellow CLARITY UA (POCT) Clear ASSESSMENT/PLAN: 1. RUQ pain - ICD9: 789.01, ICD10: R10.11 (primary diagnosis) Pain x2 months, likely 2/2 cholelithiasis. Obtain labs as ordered. Discussed OTC analgesics for pain and low cholesterol/fat diet. Will refer to general surgery to discuss cholecystecomy. Red flags for re-assessment reviewed with patient in detail. - CBC + DIFF - COMP METABOLIC PANEL - LIPASE BLD 2. Calculus of gallbladder without cholecystitis without obstruction - ICD9: 574.20, ICD10: K80.20 See above. 3. Urinary frequency - ICD9: 788.41, ICD10: R35.0 Negative for infection. No need for abx or culture at this time. - UA DIP, URINE (POC) - UA DIP, URINE (POC) Celi Murray MD documented in this encounterUniversity Hospitals Cleveland Medical Center05-08-2022 History of Present illness Narrative* Javi Busch APRN.CNP - 09/11/2021 1:09 PM EDT Nontoxic-appearing female who is 38 weeks presents urgent care today chief complaint leg swelling. Patient states legs are feel extremely swollen. She is having left calf pain. Accompanying symptoms patient states she is having some episodes of dizziness. No episodes of syncope. With patient's presenting symptoms I recommended patient reach out to her [employer] who is on-call. If she is unable to reach them to be seen in ED for further evaluation and care. Patient verbalized understandingagrees with plan of care. Javi Busch APRN.EDILBERTO documented in this encounterUniversity Hospitals Cleveland Medical Center10-22-2021 Hospital Discharge instructions* Instructions* Mildred Chance MD - 02/25/2021 Follow up appointment with your doctor/nail making machine setter - Keep next scheduled appointment Activity - Normal Activity Call your doctor/nail making machine setter if you have: - leaking fluid - vaginal bleeding - regular contractions: More than 6 contractions in one hour - decreased movement - worsening abdominal (belly) pain - headache, blurry vision, increased swelling, upper abdominal pain If you are going home with contractions that are uncomfortable/painful- we recommend these coping strategies: rhythmic breathing, hydrotherapy, imagery or visualization, gentle massage, walking and changing your position. Treatment Verification: Reji Lorenzo was assessed on Labor and Delivery for a related visit on 02/25/21. Mildred Chance MD [facility] documented in this encounterSUMMA Work Phone: [phone] 645-385810-22-2021 History of Present illness Narrative* Jyotsna Mendoza, MS, RD, LD - 02/25/2021 12:10 PM EDT Comprehensive Nutrition Assessment Type and Reason for Visit: Initial, Positive Nutrition Screen (nausea and vomiting) Nutrition Recommendations/Plan: 1. Continue with Regular diet 2. Encourage small frequent meals to promote meal tolerance 3. Suggest document po intake in nursing flow sheets 4. Obtain current weight if able 5. RD continue to monitor overall nutritional status and follow up weekly Nutrition Assessment: Patient IUP @ 9/4 weeks presents with a chief complaint as above and is beingadmitted for detox. She admits to using substances since she was 13 years old. She has detoxed several times and been clean for periods of time after depending on her environment after discharge. Most recently she has been using IV heroin (1-2 points per day) and meth (half a gram per day) as well as Ativan (1 to 2 mg/day). She last used at 8:00 this morning. Patient's LMP approximately 12/20. Patient was brought in by employees of [employer]. 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 Currently reports drowsiness, paranoia, restlessness. Patient resting during RD visit, did not disturb. Malnutrition Assessment: Malnutrition Status: Insufficient data Estimated Daily Nutrient Needs: Energy (kcal): 5378-1639 (30-33); Weight Used for Energy Requirements: Esopus Protein (g): 60-70 (1.2-1.4); Weight Used for Protein Requirements: Esopus Fluid (ml/day): per MD Nutrition Related Findings: +bowel sounds; no edema noted; Tarik 23 Wounds: None Current Nutrition Therapies: Primary Diet: Regular Anthropometric Measures: Height: 5' 2 (157.5 cm) Current Body Weight: none Admission Body Weight: 180 lb (81.6 kg) (stated) Esopus Body Weight: 110 lbs Nutrition Diagnosis: Predicted inadequate energy intake related to other (comment) (substance detox) as evidenced by nausea, vomiting (noted in nursing assessment) Nutrition Interventions: Food and/or Nutrient Delivery: Continue Current Diet Nutrition Education/Counseling: No recommendation at this time Coordination of Nutrition Care: Continue to monitor while inpatient Goals: Patient consume >75% meals Nutrition Monitoring and Evaluation: Behavioral-Environmental Outcomes: None Identified Food/Nutrient Intake Outcomes: Food and Nutrient Intake Physical Signs/Symptoms Outcomes: Biochemical Data, GI Status, Fluid Status or Edema, Skin, Weight Discharge Planning: Continue current diet Contact: pager [phone] * Mildred Chance MD - 02/24/2021 3:48 PM EDT Images from the original note were not included. Department of Obstetrics and Gynecology Labor and Delivery Triage Note CHIEF COMPLAINT: Detox HISTORY OF PRESENT ILLNESS: The patient is a 25 y.o. 9w3d. OB History 4 Para Term AB Living SAB TAB Ectopic Molar Multiple Live Births Pt presents for detox. She admits to using substances since she was 13 years old. She has detoxed several times and been clean for periods of time after depending on her environment after discharge. Most recently she has been using IV heroin (1-2 points per day) and meth (half a gram per day) as well as Ativan (1 to 2 mg/day). She last used at 8:00 this morning. Patient's LMP approximately 816. Patient was brought in by employees of [employer]. 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 Patient presents with a chief complaint as above. Denies VB Estimated Due Date: Estimated Date of Delivery: 09/26/21 PAST MEDICAL HISTORY: History reviewed. No pertinent past medical history. PAST SURGICAL HISTORY: Past Surgical History: Procedure Laterality Date SECTION, LOW TRANSVERSE SOCIAL HISTORY: reports that she has been smoking. She has a 20.00 pack-year smoking history. She has never used smokeless tobacco. She reports previous alcohol use. She reports current drug use. Drugs: Methamphetamines, Opiates , and IV. MEDICATIONS: Prior to Admission medications Not on File CARE: Complicated by: Substance use Hep C REVIEW OF SYSTEMS: Pertinent items are noted in HPI. APPEARANCE: Pain: no PHYSICAL EXAM: Vital Signs: VS wnl-reviewed/Respirations normal effort Vitals: 02/24/21 1337 02/24/21 1337 02/24/21 1434 BP: 110/67 107/65 Pulse: 99 91 Resp: 15 16 Temp: 97.3 F (36.3 C) 98.1 F (36.7 C) TempSrc: Temporal Oral SpO2: 100% Weight: 180 lb (81.6 kg) Height: 5' 2 (1.575 m) Abdomen: soft, NT, ND, no rebound/guarding LE Edema: trace GENERAL LABS: Recent Results (from the past 24 hour(s)) , URINE Collection Time: 02/24/21 2:45 PM Result Value Ref Range HCG Urine Positive Negative NA TRIAGE COURSE: We will admit patient for detox. Will consult ADM. We will get labs and dating viability ultrasound. IMPRESSION: Detox DISCUSSED WITH PNC PROVIDER: Dr. Phillip DISPOSITION: Admit to PNU Associated attestation - Cam Hodges III, MD - 02/24/2021 4:13 PM EDT I reviewed and agree with the care provided by the resident/CNM during the visit including the patient's medical history, the resident's findings in the physical exam, patient's diagnosis and treatment plan. documented in this encounterSUMMA Work Phone: [phone] NoteDepartment of Obstetrics and Gynecology [facility] Discharge Summary Admission on 02/24/2021 12:13 PM Reji Lorenzo is a 25 y.o. at 9w3d by LMP who presented for detox. Patient was brought in by [facility] for detox. 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 She has known Hep C infection. During admission her UDS was positive only for methamphetamines. Addiction medicine saw her and recommended starting low dose of subutex for decrease risk of relapse. Started on 2mg BID. Patient was stable on 02/25 for discharge to [facility]. Dating and viability US completed, however not read on discharge, will follow up if any concerns arise. Meds: Subutex 2mg BID Discharge to: Home Discharge date: 02/25/2021 Discharge Dx: Detox from substances Follow up appointment with your doctor/nail making machine setter - Keep next scheduled appointment Activity - Normal Activity Call your doctor/nail making machine setter if you have: - leaking fluid - vaginal bleeding - cramping - decreased movement - worsening abdominal (belly) pain - headache, blurry vision, increased swelling, upper abdominal pain Reginald Mitchell on 02/25/2021 at 2:03 [facility]10-17-2021 Miscellaneous Notes* Telephone Encounter - Katey Keller - 02/20/2021 11:59 AM EDT 3rd attempt. Unable to leave message. VM full. * Telephone Encounter - Katey Keller - 02/13/2021 7:27 AM EDT 2nd attempt. Unable to reach by phone. My Chart message sent. * Telephone Encounter - Lupe Porter - 01/28/2021 10:43 AM EDT First attempt to reach patient to schedule consult to hepatology. Called a few times and no answer.Mailbox was full and was unable to leave message. Will send a ADORhart message. Lupe Porter * Telephone Encounter - Vidhya Salter - 01/24/2021 8:29 AM EDT Please assist patient with scheduling. Vidhya Salter LPN * Telephone Encounter - Amanda Reyes APRN.CNP - 01/21/2021 2:19 PM EDT Can we have this routed to the right person to scheduled with hepatology. Amanda Reyes APRN.CNP * Telephone Encounter - Najma Chen LPN - 01/21/2021 9:12 AM EDT Did you mean to send this to us? Did you want to send hepatology? Or GI? * Telephone Encounter - Angelica Thrasher Ma - 01/21/2021 8:39 AM EDT Pt notified via [employer]. Angelica Thrasher Ma Chart routed to Hem/onc pool to review chart and contact pt to schedule. Angelica Thrasher Ma * Telephone Encounter - Amanda Reyes APRN.CNP - 01/21/2021 7:51 AM EDT Blood work confirms hepatitis C. Need further testing and referral to hepatology. Sodium decreased and liver enzymes elevated which is expected with hepatitis C. Recheck sodium level. Orders in place. Please assist in scheduling. Thanks, Amanda Reyes APRN.CNP documented in this encounterUniversity Hospitals Cleveland Medical Center09-14-2021 Miscellaneous Notes* Telephone Encounter - Carolyn Naidu LPN - 01/18/2021 12:21 PM EDT Requesting records. Will place on desk when come in. * Telephone Encounter - Amanda Reyes APRN.CNP - 01/15/2021 12:21 PM EDT [facility]. Can we see about getting records from theseplaces. Amanda Vicente APRN.CNP documented in this encounterUniversity Hospitals Cleveland Medical Center11-20-2018 History of Past illness Narrative* Problem Noted Date Resolved Date Breech presentation with problem 03/2604/10/2018 with uncertain dates, antepartum 10/0609/13/2017 Overview: 10/06/2016Patient is unsure of LMP. Had positive test about a month ago. She had quantitative HCG's done 09/07 and 09/11.TKRN Tobacco use during , antepartum 017 09/13/2017 Overview: 10/06/2016 Pt smokes 1/2 pack a day of cigarettes, down from 1 ppd. Discussed risks of smoking during . Advised pt to quit. TKRN History of depression 10/06/2016 09/13/2017 Overview: 10/06/2016Pt has a history of depression diagnosed 2-3 years ago. She has been off medication 1 1/2 years . She believes she is doing well off medication. Discussed increased risks of depression during and and importance of reporting the development or worsening of symptoms should they occur.Pt denies ever having any suicidal thoughts or tendencies or thoughts of hurting others. 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 Lynn Kaplan MD 10/06/16 Negative tox screen. GERD (gastroesophageal reflux disease) 4 09/13/2017 Tobacco use disorder 03/17/2014 09/13/2017 documented as of this encounter (statuses as of 09/11/2021) [facility]11-20-2018 History of Past illness Narrative* Problem Noted Date Resolved Date Breech presentation with problem 03/2604/10/2018 with uncertain dates, antepartum 10/0609/13/2017 Overview: 10/06/2016Patient is unsure of LMP. Had positive test about a month ago. She had quantitative HCG's done 09/07 and 09/11.TKRN Tobacco use during , antepartum 017 09/13/2017 Overview: 10/06/2016 Pt smokes 1/2 pack a day of cigarettes, down from 1 ppd. Discussed risks of smoking during . Advised pt to quit. TKRN History of depression 10/06/2016 09/13/2017 Overview: 10/06/2016Pt has a history of depression diagnosed 2-3 years ago. She has been off medication 1 1/2 years . She believes she is doing well off medication. Discussed increased risks of depression during and and importance of reporting the development or worsening of symptoms should they occur.Pt denies ever having any suicidal thoughts or tendencies or thoughts of hurting others. 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 Lynn Kaplan MD 10/06/16 Negative tox screen. GERD (gastroesophageal reflux disease) 4 09/13/2017 Tobacco use disorder 03/17/2014 09/13/2017 documented as of this encounter (statuses as of 11/23/2021) [facility] History of Past illness Narrative* Problem Noted Date Resolved Date Breech presentation with problem 03/2604/10/2018 with uncertain dates, antepartum 10/0609/13/2017 Overview: 10/06/2016Patient is unsure of LMP. Had positive test about a month ago. She had quantitative HCG's done 09/07 and 09/11.TKRN Tobacco use during , antepartum 017 09/13/2017 Overview: 10/06/2016 Pt smokes 1/2 pack a day of cigarettes, down from 1 ppd. Discussed risks of smoking during . Advised pt to quit. TKRN History of depression 10/06/2016 09/13/2017 Overview: 10/06/2016Pt has a history of depression diagnosed 2-3 years ago. She has been off medication 1 1/2 years . She believes she is doing well off medication. Discussed increased risks of depression during and and importance of reporting the development or worsening of symptoms should they occur.Pt denies ever having any suicidal thoughts or tendencies or thoughts of hurting others. 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 Lynn Kapaln MD 10/06/16 Negative tox screen. GERD (gastroesophageal reflux disease) 4 09/13/2017 Tobacco use disorder 03/17/2014 09/13/2017 documented as of this encounter (statuses as of 11/25/2021) [facility] History of Past illness Narrative* Problem Noted Date Resolved Date Breech presentation with problem 03/2604/10/2018 with uncertain dates, antepartum 10/0609/13/2017 Overview: 10/06/2016Patient is unsure of LMP. Had positive test about a month ago. She had quantitative HCG's done 09/07 and 09/11.TKRN Tobacco use during , antepartum 017 09/13/2017 Overview: 10/06/2016 Pt smokes 1/2 pack a day of cigarettes, down from 1 ppd. Discussed risks of smoking during . Advised pt to quit. TKRN History of depression 10/06/2016 09/13/2017 Overview: 10/06/2016Pt has a history of depression diagnosed 2-3 years ago. She has been off medication 1 1/2 years . She believes she is doing well off medication. Discussed increased risks of depression during and and importance of reporting the development or worsening of symptoms should they occur.Pt denies ever having any suicidal thoughts or tendencies or thoughts of hurting others. 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 Lynn Kaplan MD 10/06/16 Negative tox screen. GERD (gastroesophageal reflux disease) 4 09/13/2017 Tobacco use disorder 03/17/2014 09/13/2017 documented as of this encounter (statuses as of 02/15/2022) [facility] History of Past illness Narrative* Problem Noted Date Resolved Date Breech presentation with problem 03/2604/10/2018 with uncertain dates, antepartum 10/0609/13/2017 Overview: 10/06/2016Patient is unsure of LMP. Had positive test about a month ago. She had quantitative HCG's done 09/07 and 09/11.TKRN Tobacco use during , antepartum 017 09/13/2017 Overview: 10/06/2016 Pt smokes 1/2 pack a day of cigarettes, down from 1 ppd. Discussed risks of smoking during . Advised pt to quit. TKRN History of depression 10/06/2016 09/13/2017 Overview: 10/06/2016Pt has a history of depression diagnosed 2-3 years ago. She has been off medication 1 1/2 years . She believes she is doing well off medication. Discussed increased risks of depression during and and importance of reporting the development or worsening of symptoms should they occur.Pt denies ever having any suicidal thoughts or tendencies or thoughts of hurting others. 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 Lynn Kaplan MD 10/06/16 Negative tox screen. GERD (gastroesophageal reflux disease) 4 09/13/2017 Tobacco use disorder 03/17/2014 09/13/2017 documented as of this encounter (statuses as of 02/16/2022) [facility] History of Past illness Narrative* Problem Noted Date Resolved Date Breech presentation with problem 03/2604/10/2018 with uncertain dates, antepartum 10/0609/13/2017 Overview: 10/06/2016Patient is unsure of LMP. Had positive test about a month ago. She had quantitative HCG's done 09/07 and 09/11.TKRN Tobacco use during , antepartum 017 09/13/2017 Overview: 10/06/2016 Pt smokes 1/2 pack a day of cigarettes, down from 1 ppd. Discussed risks of smoking during . Advised pt to quit. TKRN History of depression 10/06/2016 09/13/2017 Overview: 10/06/2016Pt has a history of depression diagnosed 2-3 years ago. She has been off medication 1 1/2 years . She believes she is doing well off medication. Discussed increased risks of depression during and and importance of reporting the development or worsening of symptoms should they occur.Pt denies ever having any suicidal thoughts or tendencies or thoughts of hurting others. 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 Lynn Kaplan MD 10/06/16 Negative tox screen. MH Tobacco use disorder 03/17/2014 09/13/2017 documented as of this encounter (statuses as of 03/17/2022) [facility] History of Past illness Narrative* Problem Noted Date Resolved Date Breech presentation with problem 03/2604/10/2018 with uncertain dates, antepartum 10/0609/13/2017 Overview: 10/06/2016Patient is unsure of LMP. Had positive test about a month ago. She had quantitative HCG's done 09/07 and 09/11.TKRN Tobacco use during , antepartum 017 09/13/2017 Overview: 10/06/2016 Pt smokes 1/2 pack a day of cigarettes, down from 1 ppd. Discussed risks of smoking during . Advised pt to quit. TKRN History of depression 10/06/2016 09/13/2017 Overview: 10/06/2016Pt has a history of depression diagnosed 2-3 years ago. She has been off medication 1 1/2 years . She believes she is doing well off medication. Discussed increased risks of depression during and and importance of reporting the development or worsening of symptoms should they occur.Pt denies ever having any suicidal thoughts or tendencies or thoughts of hurting others. 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 Lynn Kaplan MD 10/06/16 Negative tox screen. MH Tobacco use disorder 03/17/2014 09/13/2017 documented as of this encounter (statuses as of 05/26/2022) [facility] History of Past illness Narrative* Problem Noted Date Resolved Date Breech presentation with problem 03/2604/10/2018 with uncertain dates, antepartum 10/0609/13/2017 Overview: 10/06/2016Patient is unsure of LMP. Had positive test about a month ago. She had quantitative HCG's done 09/07 and 09/11.TKRN Tobacco use during , antepartum 017 09/13/2017 Overview: 10/06/2016 Pt smokes 1/2 pack a day of cigarettes, down from 1 ppd. Discussed risks of smoking during . Advised pt to quit. TKRN History of depression 10/06/2016 09/13/2017 Overview: 10/06/2016Pt has a history of depression diagnosed 2-3 years ago. She has been off medication 1 1/2 years . She believes she is doing well off medication. Discussed increased risks of depression during and and importance of reporting the development or worsening of symptoms should they occur.Pt denies ever having any suicidal thoughts or tendencies or thoughts of hurting others. 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 Lynn Kaplan MD 10/06/16 Negative tox screen. MH Tobacco use disorder 03/17/2014 09/13/2017 documented as of this encounter (statuses as of 06/07/2022) [facility] History of Past illness Narrative* Problem Noted Date Resolved Date Breech presentation with problem 03/2604/10/2018 with uncertain dates, antepartum 10/0609/13/2017 Overview: 10/06/2016Patient is unsure of LMP. Had positive test about a month ago. She had quantitative HCG's done 09/07 and 09/11.TKRN Tobacco use during , antepartum 017 09/13/2017 Overview: 10/06/2016 Pt smokes 1/2 pack a day of cigarettes, down from 1 ppd. Discussed risks of smoking during . Advised pt to quit. TKRN History of depression 10/06/2016 09/13/2017 Overview: 10/06/2016Pt has a history of depression diagnosed 2-3 years ago. She has been off medication 1 1/2 years . She believes she is doing well off medication. Discussed increased risks of depression during and and importance of reporting the development or worsening of symptoms should they occur.Pt denies ever having any suicidal thoughts or tendencies or thoughts of hurting others. 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 Lynn Kaplan MD 10/06/16 Negative tox screen. MH Tobacco use disorder 03/17/2014 09/13/2017 documented as of this encounter (statuses as of 08/11/2022) [facility] History of Past illness Narrative* Problem Noted Date Resolved Date Breech presentation with problem 03/2604/10/2018 with uncertain dates, antepartum 10/0609/13/2017 Overview: 10/06/2016Patient is unsure of LMP. Had positive test about a month ago. She had quantitative HCG's done 09/07 and 09/11.TKRN Tobacco use during , antepartum 017 09/13/2017 Overview: 10/06/2016 Pt smokes 1/2 pack a day of cigarettes, down from 1 ppd. Discussed risks of smoking during . Advised pt to quit. TKRN History of depression 10/06/2016 09/13/2017 Overview: 10/06/2016Pt has a history of depression diagnosed 2-3 years ago. She has been off medication 1 1/2 years . She believes she is doing well off medication. Discussed increased risks of depression during and and importance of reporting the development or worsening of symptoms should they occur.Pt denies ever having any suicidal thoughts or tendencies or thoughts of hurting others. 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 Lynn Kaplan MD 10/06/16 Negative tox screen. MH Tobacco use disorder 03/17/2014 09/13/2017 documented as of this encounter (statuses as of 09/14/2022) [facility] of Past illness Narrative* Problem Noted Date Diagnosed Date Resolved Date Breech presentation with problem 03/26/2018 04/10/2018 with uncertain dates, antepartum 10/06/2016 09/13/2017 Overview: 10/06/2016Patient is unsure of LMP. Had positive test about a month ago. She had quantitative HCG's done 09/07 and 09/11.TKRN Tobacco use during , antepartum 10/06/2016 09/13/2017 Overview: 10/06/2016 Pt smokes 1/2 pack a day of cigarettes, down from 1 ppd. Discussed risks of smoking during . Advised pt to quit. TKRN History of depression 10/06/20162017 Overview: 10/06/2016Pt has a history of depression diagnosed 2-3 years ago. She has been off medication 1 1/2 years . She believes she is doing well off medication. Discussed increased risks of depression during and and importance of reporting the development or worsening of symptoms should they occur.Pt denies ever having any suicidal thoughts or tendencies or thoughts of hurting others. 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 Lynn Kaplan MD 10/06/16 Negative tox screen. Tobacco use disorder 03/17/2014 018 documented as of this encounter (statuses as of 12/11/2022) [facility] Past illness Narrative* Problem Noted Date Diagnosed Date Resolved Date Breech presentation with problem 03/26/2018 04/10/2018 with uncertain dates, antepartum 10/06/2016 09/13/2017 Overview: 10/06/2016Patient is unsure of LMP. Had positive test about a month ago. She had quantitative HCG's done 09/07 and 09/11.TKRN Tobacco use during , antepartum 10/06/2016 09/13/2017 Overview: 10/06/2016 Pt smokes 1/2 pack a day of cigarettes, down from 1 ppd. Discussed risks of smoking during . Advised pt to quit. TKRN History of depression 10/06/20162017 Overview: 10/06/2016Pt has a history of depression diagnosed 2-3 years ago. She has been off medication 1 1/2 years . She believes she is doing well off medication. Discussed increased risks of depression during and and importance of reporting the development or worsening of symptoms should they occur.Pt denies ever having any suicidal thoughts or tendencies or thoughts of hurting others. 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 Lynn Kaplan MD 10/06/16 Negative tox screen. MH Tobacco use disorder 03/17/2014 018 documented as of this encounter (statuses as of 12/19/2022) [facility] of Past illness Narrative* Problem Noted Date Diagnosed Date Resolved Date Breech presentation with problem 03/26/2018 04/10/2018 with uncertain dates, antepartum 10/06/2016 09/13/2017 Overview: 10/06/2016Patient is unsure of LMP. Had positive test about a month ago. She had quantitative HCG's done 09/07 and 09/11.TKRN Tobacco use during , antepartum 10/06/2016 09/13/2017 Overview: 10/06/2016 Pt smokes 1/2 pack a day of cigarettes, down from 1 ppd. Discussed risks of smoking during . Advised pt to quit. TKRN History of depression 10/06/20162017 Overview: 10/06/2016Pt has a history of depression diagnosed 2-3 years ago. She has been off medication 1 1/2 years . She believes she is doing well off medication. Discussed increased risks of depression during and and importance of reporting the development or worsening of symptoms should they occur.Pt denies ever having any suicidal thoughts or tendencies or thoughts of hurting others. 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 Lynn Kaplan MD 10/06/16 Negative tox screen. MH Tobacco use disorder 03/17/2014 018 documented as of this encounter (statuses as of 12/19/2022) [facility] Past illness Narrative* Problem Noted Date Diagnosed Date Resolved Date Breech presentation with problem 03/26/2018 04/10/2018 with uncertain dates, antepartum 10/06/2016 09/13/2017 Overview: 10/06/2016Patient is unsure of LMP. Had positive test about a month ago. She had quantitative HCG's done 09/07 and 09/11.TKRN Tobacco use during , antepartum 10/06/2016 09/13/2017 Overview: 10/06/2016 Pt smokes 1/2 pack a day of cigarettes, down from 1 ppd. Discussed risks of smoking during . Advised pt to quit. TKRN History of depression 10/06/20162017 Overview: 10/06/2016Pt has a history of depression diagnosed 2-3 years ago. She has been off medication 1 1/2 years . She believes she is doing well off medication. Discussed increased risks of depression during and and importance of reporting the development or worsening of symptoms should they occur.Pt denies ever having any suicidal thoughts or tendencies or thoughts of hurting others. 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 Lynn Kaplan MD 10/06/16 Negative tox screen. MH Tobacco use disorder 03/17/2014 018 documented as of this encounter (statuses as of 12/20/2022) [facility]11[facility] History of Past illness Narrative* Problem Noted Date Diagnosed Date Resolved Date Breech presentation with problem 03/26/2018 04/10/2018 with uncertain dates, antepartum 10/06/2016 09/13/2017 Overview: 10/06/2016Patient is unsure of LMP. Had positive test about a month ago. She had quantitative HCG's done 09/07 and 09/11.TKRN Tobacco use during , antepartum 10/06/2016 09/13/2017 Overview: 10/06/2016 Pt smokes 1/2 pack a day of cigarettes, down from 1 ppd. Discussed risks of smoking during . Advised pt to quit. TKRN History of depression 10/06/20162017 Overview: 10/06/2016Pt has a history of depression diagnosed 2-3 years ago. She has been off medication 1 1/2 years . She believes she is doing well off medication. Discussed increased risks of depression during and and importance of reporting the development or worsening of symptoms should they occur.Pt denies ever having any suicidal thoughts or tendencies or thoughts of hurting others. 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 Lynn Kaplan MD 10/06/16 Negative tox screen. Tobacco use disorder 03/17/2014 018 documented as of this encounter (statuses as of 12/28/2022) [facility] History of Past illness Narrative* Problem Noted Date Diagnosed Date Resolved Date Breech presentation with problem 03/26/2018 04/10/2018 with uncertain dates, antepartum 10/06/2016 09/13/2017 Overview: 10/06/2016Patient is unsure of LMP. Had positive test about a month ago. She had quantitative HCG's done 09/07 and 09/11.TKRN Tobacco use during , antepartum 10/06/2016 09/13/2017 Overview: 10/06/2016 Pt smokes 1/2 pack a day of cigarettes, down from 1 ppd. Discussed risks of smoking during . Advised pt to quit. TKRN History of depression 10/06/20162017 Overview: 10/06/2016Pt has a history of depression diagnosed 2-3 years ago. She has been off medication 1 1/2 years . She believes she is doing well off medication. Discussed increased risks of depression during and and importance of reporting the development or worsening of symptoms should they occur.Pt denies ever having any suicidal thoughts or tendencies or thoughts of hurting others. 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 Lynn Kaplan MD 10/06/16 Negative tox screen. MH Tobacco use disorder 03/17/2014 018 documented as of this encounter (statuses as of 01/04/2023) [facility] History of Past illness Narrative* Problem Noted Date Diagnosed Date Resolved Date Breech presentation with problem 03/26/2018 04/10/2018 with uncertain dates, antepartum 10/06/2016 09/13/2017 Overview: 10/06/2016Patient is unsure of LMP. Had positive test about a month ago. She had quantitative HCG's done 09/07 and 09/11.TKRN Tobacco use during , antepartum 10/06/2016 09/13/2017 Overview: 10/06/2016 Pt smokes 1/2 pack a day of cigarettes, down from 1 ppd. Discussed risks of smoking during . Advised pt to quit. TKRN History of depression 10/06/20162017 Overview: 10/06/2016Pt has a history of depression diagnosed 2-3 years ago. She has been off medication 1 1/2 years . She believes she is doing well off medication. Discussed increased risks of depression during and and importance of reporting the development or worsening of symptoms should they occur.Pt denies ever having any suicidal thoughts or tendencies or thoughts of hurting others. TKRN Family history of herpes genitalis 10/06/2016 09/13/2017 Supervision of high risk pre gnancy, antepartum 10/06/2016 09/13/2017 Uterine size-date discrepancy 02/05/2015 02/25/2015 Anemia complicating 12/31/2014 05/29/2016 Rubella non-immune status, antepartum 07/16/2014 02/25/2015 Supervision of normal 07/15/2014 07/15/2014 Supervision of normal first teen 07/15/2014 02/25/2015 Overview: Raf Morrow on Herpes simplex type 2 (HSV-2 ) infection affecting , antepartum 07/15/2014 02/26/20 15 Overview: Will need Acyclovir at 36 weeks Supervision of normal first 07/13/2014 09/10/2014 UTI in , antepartum 06/30/2014 02/25/2015 Narcotic abuse in remission 03/17/2014 09/13/2017 Overview: 10/17/16: HepB, HepC, HepA, HIV all non reactive from labs received from Jeffy Salvador MD. Lynn Kaplan MD 10/06/16 Negative tox screen. MH Tobacco use disorder 03/17/2014 018 documented as of this encounter (statuses as of 01/30/2023) [facility] History of Past illness Narrative* Problem Noted Date Diagnosed Date Resolved Date Breech presentation with problem 03/26/2018 04/10/2018 with uncertain dates, antepartum 10/06/2016 09/13/2017 Overview: 10/06/2016Patient is unsure of LMP. Had positive test about a month ago. She had quantitative HCG's done 09/07 and 09/11.TKRN Tobacco use during , antepartum 10/06/2016 09/13/2017 Overview: 10/06/2016 Pt smokes 1/2 pack a day of cigarettes, down from 1 ppd. Discussed risks of smoking during . Advised pt to quit. TKRN History of depression 10/06/20162017 Overview: 10/06/2016Pt has a history of depression diagnosed 2-3 years ago. She has been off medication 1 1/2 years . She believes she is doing well off medication. Discussed increased risks of depression during and and importance of reporting the development or worsening of symptoms should they occur.Pt denies ever having any suicidal thoughts or tendencies or thoughts of hurting others. 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 Lynn Kaplan MD 10/06/16 Negative tox screen. Tobacco use disorder 03/17/2014 018 documented as of this encounter (statuses as of 04/14/2023) [facility] History of Past illness Narrative* Problem Noted Date Diagnosed Date Resolved Date Breech presentation with problem 03/26/2018 04/10/2018 with uncertain dates, antepartum 10/06/2016 09/13/2017 Overview: 10/06/2016Patient is unsure of LMP. Had positive test about a month ago. She had quantitative HCG's done 09/07 and 09/11.TKRN Tobacco use during , antepartum 10/06/2016 09/13/2017 Overview: 10/06/2016 Pt smokes 1/2 pack a day of cigarettes, down from 1 ppd. Discussed risks of smoking during . Advised pt to quit. TKRN History of depression 10/06/20162017 Overview: 10/06/2016Pt has a history of depression diagnosed 2-3 years ago. She has been off medication 1 1/2 years . She believes she is doing well off medication. Discussed increased risks of depression during and and importance of reporting the development or worsening of symptoms should they occur.Pt denies ever having any suicidal thoughts or tendencies or thoughts of hurting others. 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 Lynn Kaplan MD 10/06/16 Negative tox screen. MH Tobacco use disorder 03/17/2014 018 documented as of this encounter (statuses as of 06/26/2023) [facility] History of Past illness Narrative* Problem Noted Date Diagnosed Date Resolved Date Breech presentation with problem 03/26/2018 04/10/2018 with uncertain dates, antepartum 10/06/2016 09/13/2017 Overview: 10/06/2016Patient is unsure of LMP. Had positive test about a month ago. She had quantitative HCG's done 09/07 and 09/11.TKRN Tobacco use during , antepartum 10/06/2016 09/13/2017 Overview: 10/06/2016 Pt smokes 1/2 pack a day of cigarettes, down from 1 ppd. Discussed risks of smoking during . Advised pt to quit. TKRN History of depression 10/06/20162017 Overview: 10/06/2016Pt has a history of depression diagnosed 2-3 years ago. She has been off medication 1 1/2 years . She believes she is doing well off medication. Discussed increased risks of depression during and and importance of reporting the development or worsening of symptoms should they occur.Pt denies ever having any suicidal thoughts or tendencies or thoughts of hurting others. 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 Lynn Kaplan MD 10/06/16 Negative tox screen. MH Tobacco use disorder 03/17/2014 018 documented as of this encounter (statuses as of 07/24/2023) [facility] History of Past illness Narrative* Problem Noted Date Diagnosed Date Resolved Date Breech presentation with problem 03/26/2018 04/10/2018 with uncertain dates, antepartum 10/06/2016 09/13/2017 Overview: 10/06/2016Patient is unsure of LMP. Had positive test about a month ago. She had quantitative HCG's done 09/07 and 09/11.TKRN Tobacco use during , antepartum 10/06/2016 09/13/2017 Overview: 10/06/2016 Pt smokes 1/2 pack a day of cigarettes, down from 1 ppd. Discussed risks of smoking during . Advised pt to quit. TKRN History of depression 10/06/20162017 Overview: 10/06/2016Pt has a history of depression diagnosed 2-3 years ago. She has been off medication 1 1/2 years . She believes she is doing well off medication. Discussed increased risks of depression during and and importance of reporting the development or worsening of symptoms should they occur.Pt denies ever having any suicidal thoughts or tendencies or thoughts of hurting others. 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 Lynn Kaplan MD 10/06/16 Negative tox screen. MH Tobacco use disorder 03/17/2014 018 documented as of this encounter (statuses as of 08/17/2023) [facility] History of Past illness Narrative* Problem Noted Date Diagnosed Date Resolved Date Breech presentation with problem 03/26/2018 04/10/2018 with uncertain dates, antepartum 10/06/2016 09/13/2017 Overview: 10/06/2016Patient is unsure of LMP. Had positive test about a month ago. She had quantitative HCG's done 09/07 and 09/11.TKRN Tobacco use during , antepartum 10/06/2016 09/13/2017 Overview: 10/06/2016 Pt smokes 1/2 pack a day of cigarettes, down from 1 ppd. Discussed risks of smoking during . Advised pt to quit. TKRN History of depression 10/06/20162017 Overview: 10/06/2016Pt has a history of depression diagnosed 2-3 years ago. She has been off medication 1 1/2 years . She believes she is doing well off medication. Discussed increased risks of depression during and and importance of reporting the development or worsening of symptoms should they occur.Pt denies ever having any suicidal thoughts or tendencies or thoughts of hurting others. 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 Lynn Kaplan MD 10/06/16 Negative tox screen. MH Tobacco use disorder 03/17/2014 018 documented as of this encounter (statuses as of 08/18/2023) [facility] Opioid withdrawal (HCC)- Primary Drug withdrawal Admitted to substance misuse detoxification center Severe opioid use disorder (HCC) Substance abuse affecting in first trimester, antepartum Hepatitis C antibody positive in blood Polysubstance abuse (HCC) Other, mixed, or unspecified nondependent drug abuse, unspecified Tobacco use disorder affecting in first trimester, antepartum Anxiety disorder, unspecified Withdrawal from methamphetamine (HCC) documented in this encounter [facility] Work Phone: Evaluation note* Diagnosis Procedure not carried out- Primary Procedure not carried out for other reasons [facility] this encounter [facility] Diagnosis Onset Date Resolution Status Bipolar 1 disorder acute Genital herpes acute Tobacco abuse acute COVID-19 affecting , antepartum resolved Hepatitis C test positive re solved History of resolve d History of drug abuse resolv ed resolved Supervision of high risk , antepartum resolved Bipolar 1 disorder acute Contraception management acu te Genital herpes acute Tobacco abuse acute COVID-19 affecting , antepartum resolved Hepatitis C test positive re solved History of resolve d History of drug abuse resolv ed resolved Supervision of high risk , antepartum resolved Bipolar 1 disorder acute Contraception management acu te Genital herpes acute Tobacco abuse acute COVID-19 affecting , antepartum resolved Hepatitis C test positive re solved History of resolve d History of drug abuse resolv ed resolved Supervision of high risk , antepartum resolved Bipolar 1 disorder acute Contraception management acu te Genital herpes acute Tobacco abuse acute COVID-19 affecting , antepartum resolved Hepatitis C test positive re solved History of resolve d History of drug abuse resolv ed resolved Supervision of high risk , antepartum resolved Bipolar 1 disorder acute Contraception management acu te Genital herpes acute Tobacco abuse acute COVID-19 affecting , antepartum resolved Hepatitis C test positive re solved History of resolve d History of drug abuse resolv ed resolved Supervision of high risk , antepartum resolved Bipolar 1 disorder acute Contraception management acu te Genital herpes acute Tobacco abuse acute COVID-19 affecting , antepartum resolved Hepatitis C test positive re solved History of resolve d History of drug abuse resolv ed resolved Supervision of high risk , antepartum resolved Bipolar 1 disorder acute Contraception management acu te Genital herpes acute Status post section acute Tobacco abuse acute COVID-19 affecting , antepartum resolved Hepatitis C test positive re solved History of resolve d History of drug abuse resolv ed resolved Supervision of high risk , antepartum resolved [facility] Work Phone: Evaluation note* Diagnosis Onset Date Resolution Status Bipolar 1 disorder acute Tobacco abuse acute Contraception management res olved COVID-19 affecting , antepartum resolved Genital herpes resolved Hepatitis C test positive re solved History of resolve d History of drug abuse resolv ed resolved Supervision of high risk , antepartum resolved Bipolar 1 disorder acute Tobacco abuse acute Contraception management res olved COVID-19 affecting , antepartum resolved Genital herpes resolved Hepatitis C test positive re solved History of resolve d History of drug abuse resolv ed resolved Supervision of high risk , antepartum resolved Bipolar 1 disorder acute Tobacco abuse acute Contraception management res olved COVID-19 affecting , antepartum resolved Genital herpes resolved Hepatitis C test positive re solved History of resolve d History of drug abuse resolv ed resolved Supervision of high risk , antepartum resolved Bipolar 1 disorder acute Tobacco abuse acute Contraception management res olved COVID-19 affecting , antepartum resolved Genital herpes resolved Hepatitis C test positive re solved History of resolve d History of drug abuse resolv ed resolved Supervision of high risk , antepartum resolved Bipolar 1 disorder acute Status post section acute Tobacco abuse acute Contraception management res olved COVID-19 affecting , antepartum resolved Genital herpes resolved Hepatitis C test positive re solved History of resolve d History of drug abuse resolv ed resolved Supervision of high risk , antepartum resolved [facility] Work Phone: Evaluation note* Diagnosis Positive hepatitis C antibody test- Primary Other and unspecified nonspecific immunological findings Hyponatremia Hyposmolality and/or hyponatremia documented in this encounter [facility] noteNo assessment information availableWKettering [facility] Work Phone: Evaluation note* Diagnosis RUQ pain- Primary Abdominal pain, right upper quadrant Calculus of gallbladder without cholecystitis without obstruction Calculus of gallbladder without mention of cholecystitis or obstruction Urinary frequency [facility] this [facility]* Diagnosis Chronic active hepatitis (HCC)- Primary Other chronic hepatitis RUQ pain Abdominal pain, right upper quadrant Calculus of gallbladder without cholecystitis without obstruction Calculus of gallbladder without mention of cholecystitis or obstruction RUQ pain Abdominal pain, right upper quadrant Calculus of gallbladder without cholecystitis without obstruction Calculus of gallbladder without mention of cholecystitis or obstruction documented in this encounter [facility] note* Diagnosis Calculus of gallbladder without cholecystitis without obstruction- Primary Calculus of gallbladder without mention of cholecystitis or obstruction Chronic active hepatitis (HCC) Other chronic hepatitis documented in this encounter [facility] note* Diagnosis Constipation, unspecified constipation type- Primary documented in this encounter [facility] note* Diagnosis Lump of skin- Primary Localized superficial swelling, mass, or lump Lymphadenopathy Enlargement of lymph nodes Weight gain Abnormal weight gain Exposure to sexually transmitted disease (STD) Contact with or exposure to other communicable diseases documented in this encounter [facility] note* Diagnosis URI, acute- Primary Acute upper respiratory infections of unspecified site documented in this encounter [facility] note* Diagnosis Opioid use disorder, severe, dependence- Primary documented in this encounter [facility] note* Diagnosis Opioid use disorder, severe, dependence- Primary documented in this encounter [facility] note* Diagnosis Urinary frequency- Primary documented in this encounter [facility] note* Diagnosis Vaginal discharge- Primary Leukorrhea, not specified as infective documented in this encounter [facility] note* Diagnosis Infected cyst of skin- Primary Sebaceous cyst documented in this encounter [facility] note* Diagnosis Opioid use disorder, severe, dependence- Primary documented in this encounter [facility] note* Diagnosis Rash- Primary Rash and other nonspecific skin eruption documented in this encounter [facility] note* Diagnosis Opioid use disorder, severe, dependence- Primary documented in this encounter [facility] note* Diagnosis Opioid use disorder, severe, dependence- Primary documented in this encounter [facility] note* Diagnosis Vaginal discharge- Primary Leukorrhea, not specified as infective Encounter for medication refill Issue of repeat prescriptions documented in this encounter [facility] note* Diagnosis Recurrent herpes labialis- Primary Herpes simplex without mention of complication Screening for STD (sexually transmitted disease) Screening examination for venereal disease documented in this encounter [facility] note* Diagnosis Opiate withdrawal- Primary Drug withdrawal Opioid dependence in remission Opioid type dependence, in remission JESSICA (generalized anxiety disorder) Generalized anxiety disorder documented in this encounter [facility] note* Diagnosis Opioid use disorder, severe, dependence- Primary documented in this encounter [facility] note* Diagnosis Opioid dependence in remission- Primary Opioid type dependence, in remission documented in this encounter [facility] note* Diagnosis Opioid use disorder, severe, dependence- Primary documented in this encounter [facility] note* Diagnosis Vaginal discharge- Primary Leukorrhea, not specified as infective documented in this encounter [facility] note* Diagnosis Vaginal discharge- Primary Leukorrhea, not specified as infective Encounter for screening examination for sexually transmitted disease documented in this encounter [facility] note* Diagnosis Pre-operative examination- Primary Preoperative examination, unspecified Chronic active hepatitis (HCC) Other chronic hepatitis Hx of drug abuse (HCC) Other, mixed, or unspecified nondependent drug abuse, in remission Tobacco use Tobacco use disorder Attention deficit hyperactivity disorder (ADHD), unspecified ADHD type Seizure (HCC) Other convulsions Iron deficiency anemia secondary to inadequate dietary iron intake History of depression Bipolar 1 disorder (HCC) Bipolar I disorder, most recent episode (or current) unspecified Gastroesophageal reflux disease, unspecified whether esophagitis present Acute vaginitis- Primary Vaginitis and vulvovaginitis, unspecified documented in this encounter [facility] note* Diagnosis Pre-operative examination- Primary Preoperative examination, unspecified Chronic active hepatitis (HCC) Other chronic hepatitis Hx of drug abuse (HCC) Other, mixed, or unspecified nondependent drug abuse, in remission Tobacco use Tobacco use disorder Attention deficit hyperactivity disorder (ADHD), unspecified ADHD type Seizure (HCC) Other convulsions Iron deficiency anemia secondary to inadequate dietary iron intake History of depression Bipolar 1 disorder (HCC) Bipolar I disorder, most recent episode (or current) unspecified Gastroesophageal reflux disease, unspecified whether esophagitis present Nausea- Primary Nausea alone documented in this encounter [facility] note* Diagnosis Pre-operative examination- Primary Preoperative examination, unspecified Chronic active hepatitis (HCC) Other chronic hepatitis Hx of drug abuse (HCC) Other, mixed, or unspecified nondependent drug abuse, in remission Tobacco use Tobacco use disorder Attention deficit hyperactivity disorder (ADHD), unspecified ADHD type Seizure (HCC) Other convulsions Iron deficiency anemia secondary to inadequate dietary iron intake History of depression Bipolar 1 disorder (HCC) Bipolar I disorder, most recent episode (or current) unspecified Gastroesophageal reflux disease, unspecified whether esophagitis present Constipation, unspecified constipation type documented in this encounter [facility] note* Diagnosis Pre-operative examination- Primary Preoperative examination, unspecified Chronic active hepatitis (HCC) Other chronic hepatitis Hx of drug abuse (HCC) Other, mixed, or unspecified nondependent drug abuse, in remission Tobacco use Tobacco use disorder Attention deficit hyperactivity disorder (ADHD), unspecified ADHD type Seizure (HCC) Other convulsions Iron deficiency anemia secondary to inadequate dietary iron intake History of depression Bipolar 1 disorder (HCC) Bipolar I disorder, most recent episode (or current) unspecified Gastroesophageal reflux disease, unspecified whether esophagitis present Dental infection- Primary Acute apical periodontitis of pulpal origin Tooth pain Unspecified disorder of the teeth and supporting structures [facility] Diagnosis Pre-operative examination- Primary Preoperative examination, unspecified Chronic active hepatitis (HCC) Other chronic hepatitis Hx of drug abuse (HCC) Other, mixed, or unspecified nondependent drug abuse, in remission Tobacco use Tobacco use disorder Attention deficit hyperactivity disorder (ADHD), unspecified ADHD type Seizure (HCC) Other convulsions Iron deficiency anemia secondary to inadequate dietary iron intake History of depression Bipolar 1 disorder (HCC) Bipolar I disorder, most recent episode (or current) unspecified Gastroesophageal reflux disease, unspecified whether esophagitis present Nausea- Primary Nausea alone [facility]* Diagnosis Pre-operative examination- Primary Preoperative examination, unspecified Chronic active hepatitis (HCC) Other chronic hepatitis Hx of drug abuse (HCC) Other, mixed, or unspecified nondependent drug abuse, in remission Tobacco use Tobacco use disorder Attention deficit hyperactivity disorder (ADHD), unspecified ADHD type Seizure (HCC) Other convulsions Iron deficiency anemia secondary to inadequate dietary iron intake History of depression Bipolar 1 disorder (HCC) Bipolar I disorder, most recent episode (or current) unspecified Gastroesophageal reflux disease, unspecified whether esophagitis present Bilious vomiting with nausea- Primary [facility]* Diagnosis Pre-operative examination- Primary Preoperative examination, unspecified Chronic active hepatitis (HCC) Other chronic hepatitis Hx of drug abuse (HCC) Other, mixed, or unspecified nondependent drug abuse, in remission Tobacco use Tobacco use disorder Attention deficit hyperactivity disorder (ADHD), unspecified ADHD type Seizure (HCC) Other convulsions Iron deficiency anemia secondary to inadequate dietary iron intake History of depression Bipolar 1 disorder (HCC) Bipolar I disorder, most recent episode (or current) unspecified Gastroesophageal reflux disease, unspecified whether esophagitis present Bilious vomiting with nausea [facility]* Diagnosis Pre-operative examination- Primary Preoperative examination, unspecified Chronic active hepatitis (HCC) Other chronic hepatitis Hx of drug abuse (HCC) Other, mixed, or unspecified nondependent drug abuse, in remission Tobacco use Tobacco use disorder Attention deficit hyperactivity disorder (ADHD), unspecified ADHD type Seizure (HCC) Other convulsions Iron deficiency anemia secondary to inadequate dietary iron intake History of depression Bipolar 1 disorder (HCC) Bipolar I disorder, most recent episode (or current) unspecified Gastroesophageal reflux disease, unspecified whether esophagitis present Genital herpes simplex, unspecified site- Primary [facility]* Diagnosis Pre-operative examination- Primary Preoperative examination, unspecified Chronic active hepatitis (HCC) Other chronic hepatitis Hx of drug abuse (HCC) Other, mixed, or unspecified nondependent drug abuse, in remission Tobacco use Tobacco use disorder Attention deficit hyperactivity disorder (ADHD), unspecified ADHD type Seizure (HCC) Other convulsions Iron deficiency anemia secondary to inadequate dietary iron intake History of depression Bipolar 1 disorder (HCC) Bipolar I disorder, most recent episode (or current) unspecified Gastroesophageal reflux disease, unspecified whether esophagitis present Viral URI with cough- Primary Acute upper respiratory infections of unspecified site Vaginal itching Pruritus of genital organs [facility]* Diagnosis Pre-operative examination- Primary Preoperative examination, unspecified Chronic active hepatitis (HCC) Other chronic hepatitis Hx of drug abuse (HCC) Other, mixed, or unspecified nondependent drug abuse, in remission Tobacco use Tobacco use disorder Attention deficit hyperactivity disorder (ADHD), unspecified ADHD type Seizure (HCC) Other convulsions Iron deficiency anemia secondary to inadequate dietary iron intake History of depression Bipolar 1 disorder (HCC) Bipolar I disorder, most recent episode (or current) unspecified Gastroesophageal reflux disease, unspecified whether esophagitis present Thyroid nodule- Primary Nontoxic uninodular goiter Weight loss Loss of weight Acute right ankle pain Enlarged thyroid Goiter, unspecified History of hepatitis C Personal history of other infectious and parasitic disease Chronic nausea Nausea alone Acute right ankle pain documented [facility]* Diagnosis Pre-operative examination- Primary Preoperative examination, unspecified Chronic active hepatitis (HCC) Other chronic hepatitis Hx of drug abuse (HCC) Other, mixed, or unspecified nondependent drug abuse, in remission Tobacco use Tobacco use disorder Attention deficit hyperactivity disorder (ADHD), unspecified ADHD type Seizure (HCC) Other convulsions Iron deficiency anemia secondary to inadequate dietary iron intake History of depression Bipolar 1 disorder (HCC) Bipolar I disorder, most recent episode (or current) unspecified Gastroesophageal reflux disease, unspecified whether esophagitis present Acute right ankle pain [facility] Diagnosis Pre-operative examination- Primary Preoperative examination, unspecified Chronic active hepatitis (HCC) Other chronic hepatitis Hx of drug abuse (HCC) Other, mixed, or unspecified nondependent drug abuse, in remission Tobacco use Tobacco use disorder Attention deficit hyperactivity disorder (ADHD), unspecified ADHD type Seizure (HCC) Other convulsions Iron deficiency anemia secondary to inadequate dietary iron intake History of depression Bipolar 1 disorder (HCC) Bipolar I disorder, most recent episode (or current) unspecified Gastroesophageal reflux disease, unspecified whether esophagitis present 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 [facility]* Diagnosis Pre-operative examination- Primary Preoperative examination, unspecified Chronic active hepatitis (HCC) Other chronic hepatitis Hx of drug abuse (HCC) Other, mixed, or unspecified nondependent drug abuse, in remission Tobacco use Tobacco use disorder Attention deficit hyperactivity disorder (ADHD), unspecified ADHD type Seizure (HCC) Other convulsions Iron deficiency anemia secondary to inadequate dietary iron intake History of depression Bipolar 1 disorder (HCC) Bipolar I disorder, most recent episode (or current) unspecified Gastroesophageal reflux disease, unspecified whether esophagitis present 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 documented [facility]* Diagnosis Pre-operative examination- Primary Preoperative examination, unspecified Chronic active hepatitis (HCC) Other chronic hepatitis Hx of drug abuse (HCC) Other, mixed, or unspecified nondependent drug abuse, in remission Tobacco use Tobacco use disorder Attention deficit hyperactivity disorder (ADHD), unspecified ADHD type Seizure (HCC) Other convulsions Iron deficiency anemia secondary to inadequate dietary iron intake History of depression Bipolar 1 disorder (HCC) Bipolar I disorder, most recent episode (or current) unspecified Gastroesophageal reflux disease, unspecified whether esophagitis present 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 Medical Records Department [address] [place] [address] H&P Exam - Hospitalist 11/10/24 1722 MR#: [id number] Acct: [id number] Name: REJI LORENZO Rep #:[id number] : 1995 29 From: Roman Gunter DO PCP: Dr. Nando Murray MD Status :ADM IN Location: U [id number] HPI - General General Date of Admission: 11/10/24 Date of Service: 11/10/24 Chief Complaint: chest pain. HPI Narrative REJI LORENZO, is a 29 F who presents with chest pain. This is a 29-year-old female with history of drug abuse presents with chest pain today. Was brought to the emergency room where her initial troponins were 12 with then subsequent developed EKG changes with depressed ST segments in V1 and V2. Subsequent troponins came back at 1210. Patient was ordered heparin drip and admission wasrecommended. Patient has never had any chest pain like this before. The patient's mother was present at bedside stated that she thought was initially a panic attack but noted that the patient's heart rate was normal when she checkedthe patient's pulse. Patient denies any illicit drug use with exception of marijuana. She denies any methamphetamines or cocaine. Patient's urine drug screen did show presumptive positive for buprenorphine as well as cannabinoids. Patient had been on Brixadi and last received a prescription on February 03, 2024 but has not taken that in months. [facility] Medical History Nausea & vomiting Wears contact lenses Marijuana use Easy bruising Migraine headache Syncope Seizures History of ulceration Gastric reflux Smoker Hepatitis C test positive H/O emotional problems Alcohol abuse Depression affecting Positive urine drug screen Anemia Herpes Tobacco abuse complicated by subutex maintenance, antepartum History of drug abuse Home Medications ?Medication ?Instructions ?Recorded ?Last Taken ?Type ursodiol 300 mg capsule 300 mg PO BID bile acid #60 caps 07/03/24 Unknown Rx famotidine 40 mg tablet 40 mg PO QHS #30 tabs Unknown Rx lansoprazole 30 mg capsule,delayed 30 mg PO BID #60 ca ps 10/23/24 Unknown Rx release ondansetron 8 mg disintegrating 8 mg PO Q12H PRN nause a and 10/29/24 Unknown Rx tablet vomiting #30 tabs Allergy/AdvReac Type Severity Reaction Status Date / Time clindamycin Allergy Hives Verified 11/10/24 10:15 diphenhydramine HCl (From Allergy Hives Verified 11/10/24 10:15 Benadryl) Penicillins Allergy Hives Verified 11/10/24 10:15 Family History Other Alcoholism Anxiety Arthritis Cancer Cervical cancer Depression Diabetes Endometriosis Mental disorder Ovarian cancer Psychiatric care Seizures Thyroid disorder Surgical History History of esophagogastroduodenoscopy (EGD) History of cholecystectomy History of Social History household members: family housing: house number of children: 2 Smoking Status: Current every day smoker tobacco type: cigarettes alcohol intake: former substance use type: former substance user Date of last use: 05/2020 what type of physical activity do you participate in: none do you feel safe at home: Yes DESIRAE Roberson Has been losing weight recently. States that she has been using THC (smoking/vaping it or edibles) to try to increase her weight. Denies any diaphoresis, no shortness of breath. All review of systems were negative exceptas mentioned above in the history of present illness and the other review of systems. Vital Signs Vital Signs Vital Signs: 11/10/24 10:12 11/10/24 10:41 11/10/24 11:09 Temperature 35.8 C L Temperature Source Oral Pulse Rate 80 51 L Respiratory Rate 30 H 12 Respiratory Effort Normal Non-Labored Respiratory Pattern Normal Blood Pressure 128/46 H 116/64 Blood Pressure Mean 73 81 Pulse Ox 100 Oxygen Delivery Method Room Air Room Air 11/10/24 12:00 11/10/24 12:18 11/10/24 13:00 Temperature Temperature Source Pulse Rate 56 L 55 L 55 L Respiratory Rate 14 14 15 Respiratory Effort Respiratory Pattern Blood Pressure 108/58 L 108/58 L 106/69 Blood Pressure Mean 74 73 80 Pulse Ox 100 96 99 Oxygen Delivery Method Room Air 11/10/24 14:00 11/10/24 14:57 11/10/24 16:00 Temperature Temperature Source Pulse Rate 56 L 42 L 64 Respiratory Rate 13 16 Respiratory Effort Respiratory Pattern Blood Pressure 105/67 117/72 106/55 L Blood Pressure Mean 79 87 72 Pulse Ox 99 20 100 Oxygen Delivery Method Room Air Room Air 11/10/24 17:00 11/10/24 17:21 Temperature Temperature Source Pulse Rate 54 L 49 L Respiratory Rate 16 Respiratory Effort Respiratory Pattern Blood Pressure 95/78 95/78 Blood Pressure Mean 83 Pulse Ox 100 Oxygen Delivery Method Room Air Weight Weight: 50.9 kg Body Mass Index (BMI) 20.5 Physical Exam Const alert Constitutional Narrative: anxious. HEENT normocephalic and head/scalp atraumatic Resp normal respiratory effort, no retractions, no use of accessory muscles and clearto auscultation bilaterally Cardio regular rate, regular rhythm, S1 normal heart sound and S2 normal heart sound GI normal to inspection, nondistended, normoactive bowel sounds, soft to palpation,non-tender and non-distended Extremity normal to inspection and full ROM Neuro oriented x3, CN's II-XII intact bilaterally, moves all extremities and no focal motor deficits Sensorium / Orientation: awake, alert, oriented to person and oriented to place Psych affect normal Results Lab / Micro Data Attestation: I reviewed the patient's lab results. 11/10/24 11:05 11/10/24 11:05 Labs: Laboratory Results - last 24 hr 11/10/24 11:05: WBC 7.8, RBC 4.35, Hgb 13.4, Hct 40.0, MCV 92.0, MCH 30.8, MCHC 33.5, RDW Std Deviation 43.1, RDW Coeff of Donnell 12.8, Plt Count 301, MPV 9.9, Immature Gran % (Auto) 0.100, Neut % (Auto) 52.5, Lymph % (Auto) 38.9, Stark % (Auto) 6.1, Eos % (Auto) 1.8, Baso % (Auto) 0.6, Absolute Neuts (auto) 4.1, Absolute Lymphs (auto) 3.04, Nucleated RBC % 0, D-Dimer Quant (PE/DVT) 0.43, Sodium 138, Potassium 4.4, Chloride 102, Carbon Dioxide 21.0, Anion Gap 15, BUN 14, Creatinine 0.95, Estim Creat Clear Calc 69.11, Est GFR (MDRD) Non-Af 84, BUN/Creatinine Ratio 15.0, Glucose 122 H, Calcium 9.8, Total Bilirubin 0.34, AST45 H, ALT 29, Alkaline Phosphatase 48, Troponin T High Sens 12, Total Protein 7.9, Albumin 4.7, Globulin 3.2, Albumin/Globulin Ratio 1.5, Lipase 40, Serum , Qual NEGATIVE 11/10/24 11:35: Urine Opiates Screen NEGATIVE, U Buprenorphine Qual PRESUMPTIVE POSITIVE, Ur Oxycodone Screen NEGATIVE, Urine Methadone Screen NEGATIVE, Urine Fentanyl Screen NEGATIVE, Ur Barbiturates Screen NEGATIVE, Ur Phencyclidine ScrnNEGATIVE, Ur Amphetamines Screen NEGATIVE, U Benzodiazepines Scrn NEGATIVE, Urine Cocaine Screen NEGATIVE, U Cannabinoids Screen PRESUMPTIVE POSITIVE 11/10/24 13:00: Troponin T Hi Sens 2 Hr Cancelled 11/10/24 14:30: Troponin T High Sens 1210 H* D Imaging Radiology Impression Chest X-Ray 11/10/24 11:35 IMPRESSION: NEGATIVE CHEST Reading Location: [facility] Assessment & Plan Assessment/Plan (1) Acute non-ST elevation myocardial infarction (NSTEMI): PLAN: D-dimer is normal at 0.43. Patient was seen relatively young to have atherosclerotic disease. I would favor this being more of a vasospasm though the patient denies any illicit drug use. And her drug screen was negative for methamphetamines as well as cocaine. Patient has been started on a heparin drip. Patient did receive aspirin in the emergency room and will continue with aspirin on the floor. Given her ongoing pain, will initiate a nitroglycerin drip and make the patient PCU status. Discussed with Dr. Patel, and his plan is for the patient an echocardiogram and plan for cardiac catheterization on the . (2) Weight loss: PLAN: Unintentional. Unclear etiology at this time. The patient has been worked up for this with endoscopies. Will check a TSH not hyperthyroid. Likely the remainder of the workup will needto continue as outpatient. Patient has been having issues with nausea and reflux. I told her I am not surethat this is at all related with her symptoms but I did advise cessation of THC related compounds I recommended the least holding off for a month to see if thatimproves her symptoms. She said that she would comply. PLAN: Plan Ovarian lesions: Noted on ultrasound from the 19th. 2.4 cm on the right and 2.8cm on the left. Recommended 2-month follow-up ultrasound or gynecology referral. VTE prophylaxis: Not indicated as patient is already anticoagulated. Discussed with patient's mother at bedside. Charges/Coding Visit Charges Inpatient E&M: 87028 Init Hosp L3 11/10/24 1731 <Electronically signed by Roman Gunter DO> Cosigner Signature (if applicable): CC: Dr. Nando Murray MD; Dr. Roman Gunter DO~ Signed [facility] Work Phone: Hospital Discharge instructionsAmbulatory Orders* Phase II, Outpatient Cardiac Rehab Location: None [facility] Work Phone: Reason for referral (narrative)* Diagnostic Procedure Only (Urgent) - Closed Specialty Diagnoses / Procedures Referred By Ni mohamud Referred To Contact XR IMAGING Diagnoses Constipation, unspecified constipation type Procedures XR ABDOMEN 1V SUPINE RADIOLOGIC EXAM ABDOMEN 1 VIEW Clau Nicole PA-C [address] [place] [address] Xr Imaging Referral ID Status Reason Start Date Expiration Date V isits Requested Visits Authorized [id number] Closed Auto-Generate d Referral 06/07/2022 07/07/2023 1 1 [facility] for referral (narrative)* Diagnostic Procedure Only (Routine) - Pending Review Specialty Diagnoses / Procedures Referred By Ni mohamud Referred To Contact US IMAGING Diagnoses Lump of skin Procedures US CHEST WALL/SOFT TISSUE US CHEST REAL TIME W/IMAGE DOCUMENTATION Radha Alexis PA-C [address] [place] [address] Us Imaging Referral ID Status Reason Start Date Expiration Date Visits Requested Visits Authorized [id number] Pending Review Auto-Generat ed Referral 08/11/2022 09/10/2023 1 1 [facility] for referral (narrative)* Diagnostic Procedure Only (Urgent) - Closed Specialty Diagnoses / Procedures Referred By Contac t Referred To Contact XR IMAGING Diagnoses Constipation, unspecified constipation type Procedures XR ABDOMEN 1V SUPINE RADIOLOGIC EXAM ABDOMEN 1 VIEW Clau Nicole PA-C [address] [place] [address] [place] [address] Referral ID Status Reason Start Date Expiration Date V isits Requested Visits Authorized [id number] Closed Auto-Generate d Referral 06/07/2022 07/07/2023 1 1 [facility] for referral (narrative)No reason for referral information [facility]: [facility] visit Narrative* Diagnostic Procedure Only (Urgent) - Closed Specialty Diagnoses / Procedures Referred By Contac t Referred To Contact XR IMAGING Diagnoses Constipation, unspecified constipation type Procedures XR ABDOMEN 1V SUPINE RADIOLOGIC EXAM ABDOMEN 1 VIEW Clau Nicole PA-C [address] [place] [address] [place] [address] Referral ID Status Reason Start Date Expiration Date V isits Requested Visits Authorized [id number] Closed Auto-Generate d Referral 06/07/2022 07/07/2023 1 1 [facility] for visit Narrative* Diagnostic Procedure Only (Routine) - Closed Specialty Diagnoses / Procedures Referred By Contac t Referred To Contact XR IMAGING Diagnoses Acute right ankle pain Procedures XR ANKLE GENERAL 3V AP/LAT/OBL RIGHT RADEX ANKLE COMPLETE MINIMUM 3 VIEWS PodlogarAmanda APRN.CNP [address] [place] [address] Phone: tel: fax: [place] [address] Referral ID Status Reason Start Date Expiration Date V isits Requested Visits Authorized [id number] Closed Auto-Generate d Referral 09/19/2024 10/19/2025 1 1 [facility] Summary Purpose Family History Relationship Condition Age at Onset Recorded Date/T [place] Not Specified Psychiatric care Unknown Malignant neoplasm of cervix Unknown Malignant neoplasm of ovary Unknown Diabetes mellitus Unknown Alcoholism Unknown Anxiety Unknown Arthritis Unknown Depression Unknown Mental disorder Unknown Seizure Unknown Malignant neoplasm Unknown Disorder of thyroid Unknown Relationship Condition Age at Onset Recorded Date/T [place] Not Specified Psychiatric care Unknown Malignant neoplasm of cervix Unknown Malignant neoplasm of ovary Unknown Diabetes mellitus Unknown Alcoholism Unknown Anxiety Unknown Arthritis Unknown Depression Unknown Mental disorder Unknown Seizure Unknown Malignant neoplasm Unknown Endometriosis Unknown Disorder of thyroid Unknown Advance Directives Latest Code Status on File Code Status Date Activated Date Inactivated Comments Full Code 02/24/2021 3:48 PM Advance Directive Response Recorded Date/ Time Living Will No September 21, 2021 4 :49pm Power of Manager Labor Relations No September 21, 2021 4:49pm Advance Directive Response Recorded Date/ Time Living Will No October 31, 2021 7:01pm Power of Manager Labor Relations No October 31 7:01pm Advance Directive Response Recorded Date/ Time Living Will No June 24, 025 1:26pm Do you have a Healthcare Power of Manager Labor Relations? No June 24, 2024 1:26pm Living Will No June 07 9:35pm Do you have a Healthcare Power of Manager Labor Relations? No June 07, 2024 9:35pm Advance Directive Response Recorded Date/ Time Do you have a Healthcare Power of Manager Labor Relations? No November 10, 2024 10:41am Advance Directive Response Recorded Date/ Time Do you have a Healthcare Power of Manager Labor Relations? No November 10, 2024 5:57pm Chief Complaint and Reason for Visit Chief Complaint 23WK OB 28 weeks 30 WK OB est ob 34w ov only, no NST, BPP ordered 38 WK OB/NST OB/NST per JV REPEAT C SECTION REPEAT C SECTION REPEAT C SECTION REPEAT C SECTION Reason for Visit Bipolar 1 disorder Genital herpes Tobacco abuse COVID-19 affecting , antepartum Hepatitis C test positive History of History of drug abuse Supervision of high risk , antepartum Bipolar 1 disorder Contraception management Genital herpes Tobacco abuse COVID-19 affecting , antepartum Hepatitis C test positive History of History of drug abuse Supervision of high risk , antepartum Bipolar 1 disorder Contraception management Genital herpes Tobacco abuse COVID-19 affecting , antepartum Hepatitis C test positive History of History of drug abuse Supervision of high risk , antepartum Bipolar 1 disorder Contraception management Genital herpes Tobacco abuse COVID-19 affecting , antepartum Hepatitis C test positive History of History of drug abuse Supervision of high risk , antepartum Bipolar 1 disorder Contraception management Genital herpes Tobacco abuse COVID-19 affecting , antepartum Hepatitis C test positive History of History of drug abuse Supervision of high risk , antepartum Bipolar 1 disorder Contraception management Genital herpes Tobacco abuse COVID-19 affecting , antepartum Hepatitis C test positive History of History of drug abuse Supervision of high risk , antepartum Bipolar 1 disorder Contraception management Genital herpes Status post section Tobacco abuse COVID-19 affecting , antepartum Hepatitis C test positive History of History of drug abuse Supervision of high risk , antepartum Chief Complaint 30 WK OB est ob 34w ov only, no NST, BPP ordered 38 WK OB/NST OB/NST per JV REPEAT C SECTION REPEAT C SECTION REPEAT C SECTION REPEAT C SECTION RT upper abd pain Reason for Visit Bipolar 1 disorder Tobacco abuse Contraception management COVID-19 affecting , antepartum Genital herpes Hepatitis C test positive History of History of drug abuse Supervision of high risk , antepartum Bipolar 1 disorder Tobacco abuse Contraception management COVID-19 affecting , antepartum Genital herpes Hepatitis C test positive History of History of drug abuse Supervision of high risk , antepartum Bipolar 1 disorder Tobacco abuse Contraception management COVID-19 affecting , antepartum Genital herpes Hepatitis C test positive History of History of drug abuse Supervision of high risk , antepartum Bipolar 1 disorder Tobacco abuse Contraception management COVID-19 affecting , antepartum Genital herpes Hepatitis C test positive History of History of drug abuse Supervision of high risk , antepartum Bipolar 1 disorder Status post section Tobacco abuse Contraception management COVID-19 affecting , antepartum Genital herpes Hepatitis C test positive History of History of drug abuse Supervision of high risk , antepartum Chief Complaint RT upper abd pain ORDER BEING FAXED HEP C Chief Complaint urinary symptoms Chief Complaint Admit Date n/v/d June 07, 2024 8 :20pm Test Result July 03, 2024 9:15am Annual ([employer]) September 17, 2024 1:51p m Reason for Visit Admit Date Epigastric pain June 26, 2024 8:48am Rectal bleeding June 26, 2024 8:48am Constipation July 03, 2024 9:15am Gastritis, bile acid reflux June 9:15am Status post section July 032024 9:15am Tobacco abuse July 03, 2024 9:15am Encounter for routine gynecological exam ination September 17, 2024 1:51pm Chief Complaint Admit Date n/v/d June 07, 2024 8 :20pm Test Result July 03, 2024 9:15am Annual ([employer]) September 17, 2024 1:51p m General illness, ankle pain September 18 1:17pm Reason for Visit Admit Date Epigastric pain June 26, 2024 8:48am Rectal bleeding June 26, 2024 8:48am Constipation July 03, 2024 9:15am Gastritis, bile acid reflux June 9:15am Status post section July 032024 9:15am Tobacco abuse July 03, 2024 9:15am Pelvic pain September 17, 2024 1:51p m Encounter for routine gynecological exam ination September 17, 2024 1:51pm Chief Complaint Admit Date n/v/d June 07, 2024 8 :20pm Test Result July 03, 2024 9:15am Annual ([employer]) September 17, 2024 1:51p m General illness, ankle pain September 18 1:17pm PELVIC PAIN, LUMP September 22, 2024 12:25 pm Chief Complaint Admit Date Annual ([employer]) September 17, 2024 1:51p m General illness, ankle pain September 18 1:17pm PELVIC PAIN, LUMP September 22, 2024 12:25 pm NSTEMI November 10, 2024 5:14p m NSTEMI November 10, 2024 5:22p m Reason for Visit Admit Date Pelvic pain September 17, 2024 1:51p m Encounter for routine gynecological exam ination September 17, 2024 1:51pm Acute non-ST elevation myocardial infarc tion (NSTEMI) November 10, 2024 5:14pm Weight loss November 10, 2024 5:14p m History of drug abuse November 10, 2024 5:1 4pm Chief Complaint Admit Date Annual ([employer]) September 17, 2024 1:51p m General illness, ankle pain September 18 1:17pm PELVIC PAIN, LUMP September 22, 2024 12:25 pm NSTEMI November 10, 2024 5:14p m NSTEMI November 10, 2024 5:22p m Referral Order November 11, 2024 10:41 am Reason for Referral Specialty Diagnoses / Procedures Referred By Contac t Referred To Contact Diagnoses Positive hepatitis C antibody test Procedures CONSULT TO HEPATOLOGY NEW PATIENT VISIT LEVEL 5 FélixlogAmanda pascual MANAGER TRANSPORTATION.MANAGER PROVIDER RELATIONS [address] [place] [address] Referral ID Status Reason Start Date Expiration Date Visits Requested Visits Authorized [id number] Authorized PCP Requested Referral 01/21/2021 01/21/2022 1 1 Specialty Diagnoses / Procedures Referred By Contac t Referred To Contact General Surgery Diagnoses RUQ pain Calculus of gallbladder without cholecystitis without obstruction Procedures CONSULT TO GENERAL SURGERY OFFICE/OUTPATIENT [facility] 60-74 MINUTES Celi Murray MD [address] [place] [address] Referral ID Status Reason Start Date Expiration Date Visits Requested Visits Authorized [id number] Authorized PCP Requested Referral 02/15/2023 1 1 Specialty Diagnoses / Procedures Referred By Contac t Referred To Contact General Surgery Diagnoses Infected cyst of skin Procedures CONSULT TO GENERAL SURGERY OFFICE/OUTPATIENT [facility] 60-74 MINUTES Britt Maza, MANAGER TRANSPORTATION.MANAGER PROVIDER RELATIONS [address] [place] [address] Referral ID Status Reason Start Date Expiration Date Visits Requested Visits Authorized [id number] Authorized PCP Requested Referral 12/28/2022 12/28/2023 1 1 Specialty Diagnoses / Procedures Referred By Contac t Referred To Contact Gastroenterology Diagnoses Bilious vomiting with nausea Procedures CONSULT TO GASTROENTEROLOGY OFFICE/OUTPATIENT [facility] 60 MINUTES Gerald Christopher, MANAGER TRANSPORTATION.MANAGER PROVIDER RELATIONS [address] [place] [address] Referral ID Status Reason Start Date Expiration Date Visits Requested Visits Authorized [id number] Authorized PCP Requested Referral 04/08/2024 04/08/2025 1 1 Health Concerns Infection Onset Date Last Indicated Resolved Time COVID-19 Confirmed 01/18/2021 01/18/2021 8:53 PM EDT Infection Onset Date Last Indicated Resolved Time COVID-19 Rule-Out 01/18/2021 01/18/2021 01/19/2021 5:56 AM EDT COVID-19 Confirmed 01/18/2021 01/18/2021 8:53 PM EDT Additional Source Comments INFORMATION SOURCE (unrecogn ized section and content) DATE CREATED AUTHOR 01/04/2018 [facility] DATE CREATED AUTHOR AUTHOR'S ORGANIZ ATION 01/17/2019 [facility] DATE CREATED AUTHOR AUTHOR'S ORGANIZ ATION 03/06/2019 [facility] DATE CREATED AUTHOR AUTHOR'S ORGANIZ ATION 01/19/2021 [facility] DATE CREATED AUTHOR AUTHOR'S ORGANIZ ATION 03/09/2021 [facility] DATE CREATED AUTHOR AUTHOR'S ORGANIZ ATION 06/26/2021 [facility] DATE CREATED AUTHOR AUTHOR'S ORGANIZ ATION 09/17/2021 [facility] DATE CREATED AUTHOR AUTHOR'S ORGANIZ ATION 03/12/2022 [facility] DATE CREATED AUTHOR AUTHOR'S ORGANIZ ATION 08/22/2023 [facility] DATE CREATED AUTHOR AUTHOR'S ORGANIZ ATION 10/31/2024 [facility] DATE CREATED AUTHOR AUTHOR'S ORGANIZ ATION 11/03/2024 [facility] Reason for Visit (unrecogniz ed section and content) Reason Comments Addiction Problem Here to detox from o piates. Last use was this morning IV heroin and meth. Pt is also 9 weeks with care started Reason Comments Results Reason Comments Returning Patient's Call Reason Comments Abdominal Pain X1 month; RUQ with r adiation to back and lower abdomen; pain is intermittent, lasts 30 min-1hr; + vomiting; no diarrhea Reason Comments Consult gallbladder Specialty Diagnoses / Procedures Referred By Ni t Referred To Contact General Surgery Diagnoses RUQ pain Calculus of gallbladder without cholecystitis without obstruction Procedures CONSULT TO GENERAL SURGERY OFFICE/OUTPATIENT [facility] 60-74 MINUTES Celi Murray MD [address] [place] [address] Referral ID Status Reason Start Date Expiration Date V isits Requested Visits Authorized [id number] Closed PCP Requested Referral 02/15/2022 02/15/2023 1 1 Reason Comments Post Op Lap shwetha Reason Comments Results Reason Comments Constipation X 2 weeks Reason Comments Derm Problem Reason Comments Pain, Sinus Sinus, congestion, b odyaches and JOHNSON x 2 days Reason Comments Immunization/Injection Specialty Diagnoses / Procedures Referred By Contac t Referred To Contact Addiction Medicine Diagnoses Opioid use disorder, severe, dependence Vinnie Daily, [address] [place] [address] [facility] [address] [place] [address] Referral ID Status Reason Start Date Expiration Date Visits Re quested Visits Authorized [id number] Closed 09/06/2022 10/01/2023 1 1 Reason Comments Urinary Frequency Burning x2 days Reason Comments Vaginal Discharge X2 days Reason Comments Patient Question Reason Comments Abscess Cyst on left side of groin x 3 weeks Reason Comments Insect Bite x 2 days, itching Reason Comments Vaginal Problem Increase in discharg e with odor; newly changed soap Reason Comments STD check STD check-having a h erpes outbreak x 3 days Reason Comments Medication Follow-up Reason Comments Medication Problem Reason Comments Follow-up Medication Refill Reason Comments Vaginal Problem States she thinks sh e has BV, has white thick discharge x 3 days Reason Comments Vaginal Problem Reason Comments Vaginal Problem Possible yeast infec tion x3 days Reason Comments Results BV+ Reason Comments Nausea Stomach pain x1 week Reason Comments Toothache Reason Comments Nausea Reason Comments Intestinal Disorder Reason Comments Medication Request Reason Comments Herpes Reason Comments Illness Reason Comments Abdominal Pain Reason Comments Lab Orders Patient Update Reason Comments Mass To neck, noticed yes terday. Hard to swallow. Reason Comments Thyroid Nodule US 09/25/24 Specialty Diagnoses / Procedures Referred By Contac t Referred To Contact Diagnoses Thyroglossal duct cyst Procedures CONSULT TO ENDOCRINE SURGERY OFFICE/OUTPATIENT [facility] 60 MINUTES Celi Murray MD [address] [place] [address] Phone: tel: fax: Referral ID Status Reason Start Date Expiration Date V isits Requested Visits Authorized [id number] Closed PCP Requested Referral 09/30/2024 09/30/2025 [address] Specialty Diagnoses / Procedures Referred By Contac t Referred To Contact CT IMAGING Diagnoses Thyroglossal duct cyst Procedures CT NECK SOFT TISSUE W IVCON CT SOFT TISSUE NECK W/CONTRAST MATERIAL Heidi Ramirez MD [address] [place] [address] Phone: tel: fax: [place] [phone] Referral ID Status Reason Start Date Expiration Date V isits Requested Visits Authorized [id number] Closed Auto-Generate d Referral 10/13/2024 12/12/2024 1 1 Reason Comments Thyroid Problem CT results Scheduled Active and Recently Administ ered Medications (unrecognized section and content) Medication Order 02/23/2021 02/24/2021 02/25/2021 buprenorphine (SUBUTEX) SL tablet 2 mg 2 mg, SubLINGual, EVERY 2 HOURS, First dose (after last reorder) on Barbara 02/24/21 at 2000, For 4 doses, Start for COWS >10 2051 (Not Given - Provider: Jennifer Kamara RN - Reason: Contraindicated)2200 (Not Given - Provider: Jennifer Kamara RN - Reason: Contraindicated) 0000 (Not Given - Provider: Jennifer Kamara RN - Reason: Contraindicated)0230 (Not Given - Provider: Jennifer Kamara RN - Reason: Contraindicated) buprenorphine (SUBUTEX) SL tablet 2 mg 2 mg, SubLINGual, 2 TIMES DAILY, First dose on Sun02/25/21 at 1245 1239 (Given - Provid er: Laquita Mario RN)2100 (Due) docusate sodium (COLACE) capsule 100 mg 100 mg, Oral, 2 TIMES DAILY, First dose (after last modification) on Sun02/25/21 at 1400, Do not crush or break. 1440 (Given - Provid er: Laquita Mario RN)2100 (Due) famotidine (PEPCID) tablet 20 mg 20 mg, Oral, 2 TIMES DAILY, First dose on Barbara 02/24/21 at 2100 2011 (Given - Provider: Sherri Garcia RN) 916 (Given - Provider: Laquita Mario RN)2099 (Due) nicotine (NICODERM CQ) 14 MG/24HR 1 patch 1 patch, TransDERmal, Administer over 24 Hours, DAILY, First dose on Sun02/25/21 at 1245, Apply new patch to nonhairy, clean, dry skin on the upper body or upper outer arm. Rotate patch sites. Notify pharmacy if patient or provider prefers patch to be removed at bedtime and replaced in the morning. Hazardous Medication -- Refer to facility policy for handling and disposal. 1239 (Patch Applied - Provider: Laquita Mario RN) polyethylene glycol (GLYCOLAX) packet 17 g 17 g, Oral, DAILY, First dose on Sun02/25/21 at 1400 1440 (Given - Provid er: Laquita Mario RN) PRN Medication Order 02/23/2021 02/24/2021 02/25/2021 acetaminophen (TYLENOL) tablet 650 mg 650 mg, Oral, EVERY 4 HOURS PRN, Pain Mild (1-3), Pain Mild (1-3) or Fever greater than 100.5 F (38 C), Starting on Barbara 02/24/21 at 1538, Maximum dose of acetaminophen is 4000 mg from all sources in 24 hours. 1438 (Given - Provid er: Laquita Mario RN) aluminum & magnesium hydroxide-simethicone (MAALOX) 200-200-20 MG/5ML suspension 30 mL 30 mL, Oral, EVERY 6 HOURS PRN, Indigestion, Starting on Barbara 02/24/21 at 1959 dicyclomine (BENTYL) capsule 10 mg 10 mg, Oral, 4 TIMES DAILY PRN, Abdominal Cramping, Starting on Sun02/24/21 at 1625 hydrOXYzine (VISTARIL) capsule 25 mg 25 mg, Oral, EVERY 4 HOURS PRN, Itching, Anxiety, Starting on Barbara 02/24/21 at 1546 0950 (Given - Provid er: Laquita Mario RN) loperamide (IMODIUM) capsule 2 mg 2 mg, Oral, 4 TIMES DAILY PRN, Diarrhea, Starting on Barbara 02/24/21 at 1624, After each loose stool. ondansetron (ZOFRAN) injection 4 mg(Linked Group 1) 4 mg, IntraVENous, EVERY 6 HOURS PRN, Nausea, Vomiting, Starting on Barbara 02/24/21 at 1538, Administer if oral route cannot be used. ondansetron (ZOFRAN-ODT) disintegrating tablet 4 mg(Linked Group 1) 4 mg, Oral, EVERY 8 HOURS PRN, Nausea, Vomiting, Starting on Barbara 02/24/21 at 1538 Linked Groups Order Group 1: ondansetron (ZOFRAN-ODT) disintegrating tablet 4 mgJump to med 4 mg, Oral, EVERY 8 HOURS PRN, Nausea, Vomiting, Starting on Barbara 02/24/21 at 1538 Or ondansetron (ZOFRAN) injection 4 mgJump to med 4 mg, IntraVENous, EVERY 6 HOURS PRN, Nausea, Vomiting, Starting on Barbara 02/24/21 at 1538
Administer if oral route cannot be used.
Source Comments (unrecognize d section and content) In the event this informatio n is protected by the Federal Confidentiality of Alcohol and Drug Abuse Patient Records regulations: The Federal rules restrict any use of the information to criminally investigate or prosecute any alcohol or drug abuse patient.[facility] CenterIn the event this information is protected by the Federal Confidentiality of Alcohol and Drug Abuse Patient Records regulations: The Federal rules restrict any use of the information to criminally investigate or prosecute any alcohol or drug abuse patient.[facility] CenterIn the event this information is protected by the Federal Confidentiality of Alcohol and Drug Abuse Patient Records regulations: The Federal rules restrict any use of the information to criminally investigate or prosecute any alcohol or drug abuse patient.[facility] CenterIn the event this information is protected by the Federal Confidentiality of Alcohol and Drug Abuse Patient Records regulations: The Federal rules restrict any use of the information to criminally investigate or prosecute any alcohol or drug abuse patient.[facility] CenterIn the event this information is protected by the Federal Confidentiality of Alcohol and Drug Abuse Patient Records regulations: The Federal rules restrict any use of the information to criminally investigate or prosecute any alcohol or drug abuse patient.[facility] CenterIn the event this information is protected by the Federal Confidentiality of Alcohol and Drug Abuse Patient Records regulations: The Federal rules restrict any use of the information to criminally investigate or prosecute any alcohol or drug abuse patient.[facility] CenterIn the event this information is protected by the Federal Confidentiality of Alcohol and Drug Abuse Patient Records regulations: The Federal rules restrict any use of the information to criminally investigate or prosecute any alcohol or drug abuse patient.[facility] CenterIn the event this information is protected by the Federal Confidentiality of Alcohol and Drug Abuse Patient Records regulations: The Federal rules restrict any use of the information to criminally investigate or prosecute any alcohol or drug abuse patient.[facility] CenterIn the event this information is protected by the Federal Confidentiality of Alcohol and Drug Abuse Patient Records regulations: The Federal rules restrict any use of the information to criminally investigate or prosecute any alcohol or drug abuse patient.[facility] CenterIn the event this information is protected by the Federal Confidentiality of Alcohol and Drug Abuse Patient Records regulations: The Federal rules restrict any use of the information to criminally investigate or prosecute any alcohol or drug abuse patient.[facility] CenterIn the event this information is protected by the Federal Confidentiality of Alcohol and Drug Abuse Patient Records regulations: The Federal rules restrict any use of the information to criminally investigate or prosecute any alcohol or drug abuse patient.[facility] CenterIn the event this information is protected by the Federal Confidentiality of Alcohol and Drug Abuse Patient Records regulations: The Federal rules restrict any use of the information to criminally investigate or prosecute any alcohol or drug abuse patient.[facility] CenterIn the event this information is protected by the Federal Confidentiality of Alcohol and Drug Abuse Patient Records regulations: The Federal rules restrict any use of the information to criminally investigate or prosecute any alcohol or drug abuse patient.[facility] CenterIn the event this information is protected by the Federal Confidentiality of Alcohol and Drug Abuse Patient Records regulations: The Federal rules restrict any use of the information to criminally investigate or prosecute any alcohol or drug abuse patient.[facility] CenterIn the event this information is protected by the Federal Confidentiality of Alcohol and Drug Abuse Patient Records regulations: The Federal rules restrict any use of the information to criminally investigate or prosecute any alcohol or drug abuse patient.[facility] CenterIn the event this information is protected by the Federal Confidentiality of Alcohol and Drug Abuse Patient Records regulations: The Federal rules restrict any use of the information to criminally investigate or prosecute any alcohol or drug abuse patient.[facility] CenterIn the event this information is protected by the Federal Confidentiality of Alcohol and Drug Abuse Patient Records regulations: The Federal rules restrict any use of the information to criminally investigate or prosecute any alcohol or drug abuse patient.[facility] CenterIn the event this information is protected by the Federal Confidentiality of Alcohol and Drug Abuse Patient Records regulations: The Federal rules restrict any use of the information to criminally investigate or prosecute any alcohol or drug abuse patient.[facility] CenterIn the event this information is protected by the Federal Confidentiality of Alcohol and Drug Abuse Patient Records regulations: The Federal rules restrict any use of the information to criminally investigate or prosecute any alcohol or drug abuse patient.[facility] CenterIn the event this information is protected by the Federal Confidentiality of Alcohol and Drug Abuse Patient Records regulations: The Federal rules restrict any use of the information to criminally investigate or prosecute any alcohol or drug abuse patient.[facility] CenterIn the event this information is protected by the Federal Confidentiality of Alcohol and Drug Abuse Patient Records regulations: The Federal rules restrict any use of the information to criminally investigate or prosecute any alcohol or drug abuse patient.[facility] CenterIn the event this information is protected by the Federal Confidentiality of Alcohol and Drug Abuse Patient Records regulations: The Federal rules restrict any use of the information to criminally investigate or prosecute any alcohol or drug abuse patient.[facility] CenterIn the event this information is protected by the Federal Confidentiality of Alcohol and Drug Abuse Patient Records regulations: The Federal rules restrict any use of the information to criminally investigate or prosecute any alcohol or drug abuse patient.[facility] CenterIn the event this information is protected by the Federal Confidentiality of Alcohol and Drug Abuse Patient Records regulations: The Federal rules restrict any use of the information to criminally investigate or prosecute any alcohol or drug abuse patient.[facility] CenterIn the event this information is protected by the Federal Confidentiality of Alcohol and Drug Abuse Patient Records regulations: The Federal rules restrict any use of the information to criminally investigate or prosecute any alcohol or drug abuse patient.[facility] CenterIn the event this information is protected by the Federal Confidentiality of Alcohol and Drug Abuse Patient Records regulations: The Federal rules restrict any use of the information to criminally investigate or prosecute any alcohol or drug abuse patient.[facility] CenterIn the event this information is protected by the Federal Confidentiality of Alcohol and Drug Abuse Patient Records regulations: The Federal rules restrict any use of the information to criminally investigate or prosecute any alcohol or drug abuse patient.[facility] CenterIn the event this information is protected by the Federal Confidentiality of Alcohol and Drug Abuse Patient Records regulations: The Federal rules restrict any use of the information to criminally investigate or prosecute any alcohol or drug abuse patient.[facility] CenterIn the event this information is protected by the Federal Confidentiality of Alcohol and Drug Abuse Patient Records regulations: The Federal rules restrict any use of the information to criminally investigate or prosecute any alcohol or drug abuse patient.[facility] CenterIn the event this information is protected by the Federal Confidentiality of Alcohol and Drug Abuse Patient Records regulations: The Federal rules restrict any use of the information to criminally investigate or prosecute any alcohol or drug abuse patient.[facility] CenterIn the event this information is protected by the Federal Confidentiality of Alcohol and Drug Abuse Patient Records regulations: The Federal rules restrict any use of the information to criminally investigate or prosecute any alcohol or drug abuse patient.[facility] CenterIn the event this information is protected by the Federal Confidentiality of Alcohol and Drug Abuse Patient Records regulations: The Federal rules restrict any use of the information to criminally investigate or prosecute any alcohol or drug abuse patient.[facility] CenterIn the event this information is protected by the Federal Confidentiality of Alcohol and Drug Abuse Patient Records regulations: The Federal rules restrict any use of the information to criminally investigate or prosecute any alcohol or drug abuse patient.[facility] CenterIn the event this information is protected by the Federal Confidentiality of Alcohol and Drug Abuse Patient Records regulations: The Federal rules restrict any use of the information to criminally investigate or prosecute any alcohol or drug abuse patient.[facility] CenterIn the event this information is protected by the Federal Confidentiality of Alcohol and Drug Abuse Patient Records regulations: The Federal rules restrict any use of the information to criminally investigate or prosecute any alcohol or drug abuse patient.[facility] CenterIn the event this information is protected by the Federal Confidentiality of Alcohol and Drug Abuse Patient Records regulations: The Federal rules restrict any use of the information to criminally investigate or prosecute any alcohol or drug abuse patient.[facility] CenterIn the event this information is protected by the Federal Confidentiality of Alcohol and Drug Abuse Patient Records regulations: The Federal rules restrict any use of the information to criminally investigate or prosecute any alcohol or drug abuse patient.[facility] CenterIn the event this information is protected by the Federal Confidentiality of Alcohol and Drug Abuse Patient Records regulations: The Federal rules restrict any use of the information to criminally investigate or prosecute any alcohol or drug abuse patient.[facility] CenterIn the event this information is protected by the Federal Confidentiality of Alcohol and Drug Abuse Patient Records regulations: The Federal rules restrict any use of the information to criminally investigate or prosecute any alcohol or drug abuse patient.[facility] CenterIn the event this information is protected by the Federal Confidentiality of Alcohol and Drug Abuse Patient Records regulations: The Federal rules restrict any use of the information to criminally investigate or prosecute any alcohol or drug abuse patient.[facility] CenterIn the event this information is protected by the Federal Confidentiality of Alcohol and Drug Abuse Patient Records regulations: The Federal rules restrict any use of the information to criminally investigate or prosecute any alcohol or drug abuse patient.[facility] CenterIn the event this information is protected by the Federal Confidentiality of Alcohol and Drug Abuse Patient Records regulations: The Federal rules restrict any use of the information to criminally investigate or prosecute any alcohol or drug abuse patient.[facility] CenterIn the event this information is protected by the Federal Confidentiality of Alcohol and Drug Abuse Patient Records regulations: The Federal rules restrict any use of the information to criminally investigate or prosecute any alcohol or drug abuse patient.[facility] Care Teams (unrecognized sec tion and content) Court Messenger Relationship Specialty Start Date End Date Celi Murray MD [address] [place], [place] [id number] PCP - General Family Practice 07/18/18 Court Messenger Relationship Specialty Start Date End Date Celi Murray MD [address] [place], [place] [id number] PCP - General Family Practice 07/18/18 Court Messenger Relationship Specialty Start Date End Date Celi Murray MD [address] [place] [address] PCP - General Family Practice 07/18/18 Court Messenger Relationship Specialty Start Date End Date Celi Murray MD [address] [facility] [place] [address] PCP - General Family Medicine 07/18/18 Court Messenger Relationship Specialty Start Date End Date Celi Murray MD [address] [facility] [place] [address] PCP - General Family Medicine 07/18/18 Court Messenger Relationship Specialty Start Date End Date Celi Murray MD [address] [facility] [place] [address] PCP - General Family Medicine 07/18/18 Court Messenger Relationship Specialty Start Date End Date Celi Murray MD [address] [facility] [place] [address] PCP - General Family Medicine 07/18/18 Court Messenger Relationship Specialty Start Date End Date Celi Murray MD [address] [facility] [place] [address] PCP - General Family Medicine 07/18/18 Court Messenger Relationship Specialty Start Date End Date Celi Murray MD [address] [facility] [place] [address] PCP - General Family Medicine 07/18/18 Court Messenger Relationship Specialty Start Date End Date Celi Murray MD [address] [facility] [place] [address] PCP - General Family Medicine 07/18/18 Court Messenger Relationship Specialty Start Date End Date Celi Murray MD [address] [facility] [place] [address] PCP - General Family Medicine 07/18/18 Court Messenger Relationship Specialty Start Date End Date Self, Self PCP - General Other 12/14/22 Court Messenger Relationship Specialty Start Date End Date Celi Murray MD [address] [place] [address] PCP - General Family Medicine 07/18/18 Court Messenger Relationship Specialty Start Date End Date Celi Murray MD [address] [place] [address] PCP - General Family Medicine 07/18/18 Court Messenger Relationship Specialty Start Date End Date Celi Murray MD [address] [place] [address] PCP - General Family Medicine 07/18/18 Court Messenger Relationship Specialty Start Date End Date Celi Murray MD [address] [place] [address] PCP - General Family Medicine 07/18/18 Court Messenger Relationship Specialty Start Date End Date Celi Murray MD [address] [place] [address] PCP - General Family Medicine 07/18/18 Court Messenger Relationship Specialty Start Date End Date Self, Self PCP - General Other 12/14/22 Court Messenger Relationship Specialty Start Date End Date Self, Self PCP - General Other 12/14/22 Court Messenger Relationship Specialty Start Date End Date Self, Self PCP - General Other 12/14/22 Court Messenger Relationship Specialty Start Date End Date Celi Murray MD [address] [place] [address] PCP - General Family Medicine 07/18/18 Court Messenger Relationship Specialty Start Date End Date Self, Self PCP - General Other 12/14/22 Court Messenger Relationship Specialty Start Date End Date Celi Murray MD [address] [place], [place] [address] [phone] PCP - General Family Medicine 07/18/18 Court Messenger Relationship Specialty Start Date End Date Self, Self PCP - General Other 12/14/22 Team Status: Active Member Role Status Dates Dr. David Nelson MD Family Provider Active No Primary Care Physician Primary Care Provider Active Team Status: Inactive Member Role Status Dates No Primary Care Physician Primary Care Provider Active Ed Physician Provider Emergency Provider Active Court Messenger Relationship Specialty Start Date End Date Celi Murray MD [address] [place] [address] PCP - General Family Medicine 07/18/18 Court Messenger Relationship Specialty Start Date End Date Celi Murray MD [address] [place] [address] PCP - General Family Medicine 07/18/18 Court Messenger Relationship Specialty Start Date End Date Celi Murray MD [address] [place] [address] PCP - General Family Medicine 07/18/18 Court Messenger Relationship Specialty Start Date End Date Celi Murray MD [address] [place] [address] PCP - General Family Medicine 07/18/18 Court Messenger Relationship Specialty Start Date End Date Celi Murray MD [address] [place] [address] PCP - General Family Medicine 07/18/18 Court Messenger Relationship Specialty Start Date End Date Celi Murray MD [address] [place] [address] PCP - General Family Medicine 07/18/18 Court Messenger Relationship Specialty Start Date End Date Celi Murray MD [address] [place] [address] PCP - General Family Medicine 07/18/18 Court Messenger Relationship Specialty Start Date End Date Celi Murray MD [address] [place] [address] PCP - General Family Medicine 07/18/18 PodlogarAmanda APRN.MANAGER PROVIDER RELATIONS [address] [place] [address] [facility] 04/12/24 Court Messenger Relationship Specialty Start Date End Date Celi Murray MD [address] [place] [address] PCP - General Family Medicine 07/18/18 Amanda Reyes MANAGER TRANSPORTATION.MANAGER PROVIDER RELATIONS [address] [place] [address] [facility] 04/12/24 Court Messenger Relationship Specialty Start Date End Date Celi Murray MD [address] [place] [address] PCP - General Family Medicine 07/18/18 PodlogarAmanda MANAGER TRANSPORTATION.MANAGER PROVIDER RELATIONS [address] [place] [address] [facility] 04/12/24 Arline Gates APRN.MANAGER PROVIDER RELATIONS [address] [place] [address] [facility] 07/28/24 Court Messenger Relationship Specialty Start Date End Date Celi Murray MD [address] [place], [place] [address] PCP - General Family Medicine 07/18/18 PodAmanda schuler APRN.MANAGER PROVIDER RELATIONS [address] [place], [place] [address] [facility] 04/12/24 Arline Gates APRN.MANAGER PROVIDER RELATIONS [address] [place], [place] [id number] [facility] 07/28/24 Team Status: Active Member Role Status Dates Dr. Nando Murray MD Primary Care Provider Acti ve Team Status: Inactive Member Role Status Dates Dr. Nando Murray MD Primary Care Provider Acti ve Start: June 07, 2024 End: June 07, 2024 Dr. Donavan Rivera DO Attending Provider Active Start: June 07, 2024 End: June 07, 2024 Dr. Donavan Rivera DO Emergency Provider Active Start: June 07, 2024 End: June 07, 2024 Team Status: Inactive Member Role Status Dates Dr. Nando Murray MD Primary Care Provider Acti ve Start: June 26, 2024 End: June 26, 2024 Dr. Nando Murray MD Referring Provider Active Start: June 26, 2024 End: June 26, 2024 Dr. Arik Martinez DO Attending Provider Active Start: June 26, 2024 End: June 26, 2024 Team Status: Active Member Role Status Dates Dr. Nando Murray MD Primary Care Provider Acti ve Start: June 26, 2024 Dr. Nando Murray MD Referring Provider Active Start: June 26, 2024 Dr. Arik Martinez DO Attending Provider Active Start: June 26, 2024 Dr. Arik Martinez DO Other Provider Active St art: June 26, 2024 Team Status: Inactive Member Role Status Dates No Primary Care Physician Referring Provider Active Start: July 03, 2024 End: July 03, 2024 ELICEO Abel Attending Provider Active Start: July 03, 2024 End: July 03, 2024 Dr. Nando Murray MD Primary Care Provider Acti ve Start: July 03, 2024 End: July 03, 2024 Team Status: Inactive Member Role Status Dates Dr. Nando Murray MD Primary Care Provider Acti ve Start: September 17, 2024 End: September 17, 2024 Dr. Nando Murray MD Referring Provider Active Start: September 17, 2024 End: September 17, 2024 ELICEO Driscoll Attending Provider Active Start: September 17, 2024 End: September 17, 2024 Team Status: Active Member Role Status Dates Dr. Nando Murray MD Primary Care Provider Acti ve Start: September 17, 2024 ELICEO Driscoll Attending Provider Active Start: September 17, 2024 ELICEO Driscoll Referring Provider Active Start: September 17, 2024 Team Status: Inactive Member Role Status Dates Dr. Nando Murray MD Primary Care Provider Acti ve Start: September 18, 2024 End: September 18, 2024 Ed Physician Provider Referring Provider Active Start: September 18, 2024 End: September 18, 2024 Ed Physician Provider Emergency Provider Active Start: September 18, 2024 End: September 18, 2024 Court Messenger Relationship Specialty Start Date End Date Celi Murray MD [address] [place], [place] [address] PCP - General Family Medicine 07/18/18 Amanda Reyes, MANAGER TRANSPORTATION.MANAGER PROVIDER RELATIONS [address] [place], [place] [id number] [facility] 04/12/24 Arline Gates, MANAGER TRANSPORTATION.MANAGER PROVIDER RELATIONS [address] [place], [place] [id number] [facility] 07/28/24 Court Messenger Relationship Specialty Start Date End Date Celi Murray MD [address] [facility] [place] [address] PCP - General Family Medicine 07/18/18 Podlogar, Amanda, MANAGER TRANSPORTATION.MANAGER PROVIDER RELATIONS [address] [facility] [place] [address] [facility] 04/12/24 Arline Gates MANAGER TRANSPORTATION.MANAGER PROVIDER RELATIONS [address] [place] [address] [facility] 07/28/24 Court Messenger Relationship Specialty Start Date End Date Celi Murray MD [address] [facility] [place] [address] PCP - General Family Medicine 07/18/18 Podlogar, Amanda, MANAGER TRANSPORTATION.MANAGER PROVIDER RELATIONS [address] [place] [address] [facility] Medicine 04/12/24 Arline Gates MANAGER TRANSPORTATION.MANAGER PROVIDER RELATIONS [address] [place] [address] [facility] Medicine 07/28/24 Court Messenger Relationship Specialty Start Date End Date Celi Murray MD [address] [facility] [place] [address] PCP - General Family Medicine 07/18/18 Podlogar, Amanda, MANAGER TRANSPORTATION.MANAGER PROVIDER RELATIONS [address] [facility] [place] [address] [facility] 04/12/24 Arline Gates APRN.MANAGER PROVIDER RELATIONS [address] [place], [place] [address] [facility] Team Status: Inactive Member Role Status Dates Dr. Nando Murray MD Primary Care Provider Acti ve Start: September 17, 2024 End: September 17, 2024 ELICEO Driscoll Attending Provider Active Start: September 17, 2024 End: September 17, 2024 ELICEO Driscoll Referring Provider Active Start: September 17, 2024 End: September 17, 2024 Team Status: Active Member Role Status Dates Dr. Nando Murray MD Primary Care Provider Acti ve Start: September 22, 2024 ELICEO Driscoll Attending Provider Active Start: September 22, 2024 ELICEO Driscoll Referring Provider Active Start: September 22, 2024 Court Messenger Relationship Specialty Start Date End Date Celi Murray MD [address] [place] [address] PCP - General Family Medicine 07/18/18 PodlogAmanda pascual APRN.MANAGER PROVIDER RELATIONS [address] [place] [address] [facility] 04/12/24 Court Messenger Relationship Specialty Start Date End Date Celi Murray MD [address] [place] [address] PCP - General Family Medicine 07/18/18 PodlogarAmanda APRN.MANAGER PROVIDER RELATIONS [address] [place] [address] [facility] 04/12/24 Arline Gates APRN.MANAGER PROVIDER RELATIONS [address] [place], [place] [address] [facility] 10/16/24 Court Messenger Relationship Specialty Start Date End Date Celi Murray MD [address] [place] [address] PCP - General Family Medicine 07/18/18 PodlogarAmanda, MANAGER TRANSPORTATION.MANAGER PROVIDER RELATIONS [address] [place] [address] [facility] 04/12/24 Arline Gates APRN.MANAGER PROVIDER RELATIONS [address] [place], [place] [address] [facility] 10/16/24 Court Messenger Relationship Specialty Start Date End Date Celi Murray MD [address] [place] [address] PCP - General Family Medicine 07/18/18 Podlogar, Amanda, MANAGER TRANSPORTATION.MANAGER PROVIDER RELATIONS [address] [place] [address] [facility] 04/12/24 Arline Gates MANAGER TRANSPORTATION.MANAGER PROVIDER RELATIONS [address] [place], [place] [address] [facility] 10/16/24 Team Status: Active Member Role/Relationship Status Dates Dr. Nando Murray MD Primary Care Provider Acti ve Team Status: Inactive Member Role/Relationship Status Dates Dr. Nando Murray MD Primary Care Provider Acti ve Start: September 17, 2024 End: September 17, 2024 Dr. Nando Murray MD Referring Provider Active Start: September 17, 2024 End: September 17, 2024 Shelby Meléndez NP-C Attending Provider Active Start: September 17, 2024 End: September 17, 2024 Team Status: Inactive Member Role/Relationship Status Dates Dr. Nando Murray MD Primary Care Provider Acti ve Start: September 17, 2024 End: September 17, 2024 ELICEO Driscoll Attending Provider Active Start: September 17, 2024 End: September 17, 2024 ELICEO Driscoll Referring Provider Active Start: September 17, 2024 End: September 17, 2024 Team Status: Inactive Member Role/Relationship Status Dates Dr. Nando Murray MD Primary Care Provider Acti ve Start: September 18, 2024 End: September 18, 2024 Ed Physician Provider Attending Provider Active Start: September 18, 2024 End: September 18, 2024 Ed Physician Provider Referring Provider Active Start: September 18, 2024 End: September 18, 2024 Ed Physician Provider Emergency Provider Active Start: September 18, 2024 End: September 18, 2024 Team Status: Inactive Member Role/Relationship Status Dates Dr. Nando Murray MD Primary Care Provider Acti ve Start: September 22, 2024 End: September 22, 2024 ELICEO Driscoll Attending Provider Active Start: September 22, 2024 End: September 22, 2024 ELICEO Driscoll Referring Provider Active Start: September 22, 2024 End: September 22, 2024 Team Status: Active Member Role/Relationship Status Dates Dr. Nando Murray MD Primary Care Provider Acti ve Start: November 10, 2024 Dr. Adiel Silva DO Emergency Provider Activ e Start: November 10, 2024 Dr. Gemma Warren MD Admit Provider Active Star t: November 10, 2024 Dr. Gemma Warren MD Attending Provider Active Start: November 10, 2024 Team Status: Active Member Role/Relationship Status Dates Dr. Nando Murray MD Primary Care Provider Acti ve Start: November 10, 2024 Dr. Adiel Silva DO Emergency Provider Activ e Start: November 10, 2024 Dr. Gemma Warren MD Admit Provider Active Star t: November 10, 2024 Dr. Gemma Warren MD Other Provider Active Star t: November 10, 2024 Dr. Roman Gunter DO Attending Provider Active Start: November 10, 2024 Team Status: Active Member Role/Relationship Status Dates Dr. Nando Murray MD Primary Care Provider Acti ve Start: November 10, 2024 Dr. Adiel Silva DO Emergency Provider Activ e Start: November 10, 2024 Dr. Gemma Warren MD Admit Provider Active Star t: November 10, 2024 Dr. Gemma Warren MD Other Provider Active Star t: November 10, 2024 Dr. Ivan Patel MD Other Provider Active Star t: November 10, 2024 Dr. Roman Gnuter DO Attending Provider Active Start: November 10, 2024 Team Status: Active Member Role/Relationship Status Dates Dr. Nando Murray MD Primary Care Provider Acti ve Start: November 11, 2024 Dr. Huye Edward MD Attending Provider Active S tart: November 11, 2024 Goals (unrecognized section and content) Goals may be documented in a n alternate sectionGoals may be documented in an alternate sectionGoals may be documented in an alternate sectionGoals may be documented in an alternate sectionGoals may be documented in an alternate sectionGoals may be documented in an alternate section FOR RECORDS PERTAINING TO PATIENTS WHO ARE OR HAVE BEEN ENROLLED IN A CHEMICAL DEPENDENCY/SUBSTANCEABUSE PROGRAM, SOME INFORMATION MAY BE OMITTED. This clinical summary was aggregated from multiple sources. Caution should be exercised in using it in the provision of clinical care. This summary normalizes information from multiple sources, and as a consequence, information in this document may materially change the coding, format and clinical context of patient data. In addition, data may be omitted in some cases. CLINICAL DECISIONS SHOULD BE BASED ON THE PRIMARY CLINICAL RECORDS. [employer] provides no warranty or guarantee of the accuracy or completeness of information in this document.
--- NOTE | 2024-12-15 09:46 | CL.D_ITS ---
Patient Name: REJI LOPEZ Study Date: 11/11/2024 Performing: Huey Edward MD Ht: 62 inches 157.48 cm : 1995 Wt: 114 lbs 51.71 kg Age: 29 Gender: female BSA: 1.51 PROCEDURE(S) PERFORMED DC01-(01250)LHC/COR/LV CLINICAL PROFILE AND INDICATIONS Indications: Suspected CAD Heart Failure: None Stress/Imaging Stress/Image Study Performed: No CAD Presentations: Non-STEMI. Symptom onset Date/Time: 11/10/24 Time Not Available CONCLUSIONS Normal coronary arteries Cardiomyopathy: Takotsubo RECOMMENDATIONS Medical therapy DESCRIPTION OF PROCEDURE The patient arrived to the procedure lab. The risks and benefits of the procedure as well as a full description of our services here and current unavailability of surgical backup were fully explained to the patient and/or their significant other prior to the catheterization. The Timeout was completed, verifying the correct patient and procedure. The patient's procedural site was prepped and draped in the usual fashion. Local anesthetic was given subcutaneously to right radial region with Lidocaine 2%. Using a modified Seldinger technique, arterial access was obtained via the right radial artery, a 6Fr sheath was inserted. Left Coronary Artery selective angiography was performed in multiple views using a 5 Fr. 4.0 [place] catheter. Right Coronary Artery selective angiography was then performed in multiple views using a 5 Fr. 4.0 [place] catheter. Left Ventriculography was performed in MICHELLE projection using a 5 Fr. [place] catheter. LV to AO pullback pressures were then recorded.The arterial sheath was pulled and a TR Band was applied for hemostasis CORONARY ANGIOGRAPHY DOMINANCE: Right Dominant LEFT HEART ASSESSMENT Left Ventricular Ejection Fraction: by LV Gram 35 % Anterior Hypokinesis - Moderate Consistent with Takotsubo cardiomyopathy. LEFT MAIN: Angiographically normal LEFT ANTERIOR DESCENDING ARTERY: Angiographically normal CIRCUMFLEX ARTERY: Angiographically normal RIGHT CORONARY ARTERY: Angiographically normal COMPLICATIONS No Complications PROCEDURE MEDICATIONS Versed 1 mg IV Versed 1 mg IV Oxygen: 2 L/min via nasal cannula Heparin given IA 11/11/2024 08:09:26 Nitro glycerin 25mg / 250ml D5W @ 0 mcg/min discontinued 11/11/2024 08:01:13 Verapamil 2.5mg, Ntg 100mcgs, 3000 units of Heparin given IA 11/11/2024 08:09:26 SUMMARY OF HEMODYNAMIC DATA Time AIR REST ECG 07:53:05 AO 115/77 (99) SA 08:48:22 LV 116/5, 14 08:52:43 LV 114/6, 15 08:52:50 LV 115/8, 19 08:53:34 LVp 120/5, 19 08:53:38 AOp 114/71 (91) 08:53:43 AIR REST 09:06:02 Signed By Huey Edward MD On 11/11/2024 09:07:00 Huey Edward MD
== END 2024-11-11 15:57 | disposition home or self-care (01) | DRG 192 ==
LOC: ED 11:30 → PCU 17:35
PROVIDERS: Admitting Provider Internal Medicine; Emergency Provider Surgery; PCP Family Medicine
DX: I51.81 Takotsubo syndrome (principal); F11.11 Opioid abuse, in remission; R63.4 Abnormal weight loss; F17.210 Nicotine dependence, cigarettes, uncomplicated; K21.9 Gastro-esophageal reflux disease without esophagitis; F12.10 Cannabis abuse, uncomplicated; Z68.20 Body mass index [BMI] 20.0-20.9, adult; R10.13 Epigastric pain; G89.29 Other chronic pain; Z79.899 Other long term (current) drug therapy; Z86.19 Personal history of other infectious and parasitic diseases
CPT/HCPCS: 36415; 71046; 80053; 80307; 83690; 84443; 84484; 84703; 85025; 85379; 85610; 85730; 93005; 93306; 93458; 99152; 99153; 99285; Q9967; A4216; C1769; C1894; J2405

== ENCOUNTER → 2024-11-14 | Outpatient (CLI) | payer MEDICAID, SELFPAY ==
--- NOTE | 2024-11-14 15:25 | US_ITS ---
PROCEDURE: PELVIC W/ TRANSVAGINAL 11/14/2024 REASON FOR EXAM: MONITOR AREAS ON BOTH OVARIES TECHNIQUE: PELVIC W/ TRANSVAGINAL COMPARISON: Pelvic ultrasound on 09/22/2024. FINDINGS: Measurements: Uterus: 10.2 x 4.3 x 6.1 cm for volume of 138.4 mL Endometrial Thickness: 0.8 cm Right Ovary: 3.7 x 1.5 x 2.3 cm for volume of 6.6 mL Left Ovary: 2.2 x 4.0 x 8.0 cm for volume of 21.1 mL Uterus: Anteverted. Normal contour and myometrial echotexture. Endometrium: Normal echotexture. Trace physiologic fluid in the lower uterine endometrial canal. Right ovary: Normal size and echotexture. The questionable lesions in the right ovary on ultrasound dated 09/22/2024 are not visualized on this exam. Left ovary: Normal size and echotexture. Other adnexal findings: None. Cul-de-sac: No free intraperitoneal fluid identified. Color Doppler: Normal color flow doppler signal at both ovaries. US/Pelvic w/ Transvaginal IMPRESSION: Unremarkable pelvic ultrasound. The questionable lesions in the right ovary on ultrasound dated 09/22/2024 are not visualized on this exam. Reading Location: [facility]
== END | disposition home or self-care (01) ==
LOC: US 15:23
PROVIDERS: Referring Provider Obstetrics & Gynecology; Visit Provider Obstetrics & Gynecology
DX: N83.209 Unspecified ovarian cyst, unspecified side (principal)
CPT/HCPCS: 76830; 76856

== ENCOUNTER 2024-11-21 13:39 | Emergency (ER) | payer MEDICAID, SELFPAY ==
[2024-11-21 13:40] VITALS: BP 118/61; PULSE 64; RESP 18; TEMP 36.8; O2SAT 100; BMI 20.1
--- NOTE | 2024-11-21 14:15 | RAD_ITS ---
EXAM: XR Chest, 1 View CLINICAL INDICATION: CHEST PAIN TECHNIQUE: Frontal view of the chest. COMPARISON: No relevant prior studies available. FINDINGS: LUNGS AND PLEURAL SPACES: Unremarkable. No consolidation. No pneumothorax. HEART: Unremarkable. No cardiomegaly. MEDIASTINUM: Unremarkable. Normal mediastinal contour. BONES/JOINTS: Unremarkable. No acute fracture. RAD/Chest 1 View (Portable) IMPRESSION: No acute cardiopulmonary process. Reading Location: [facility]
[2024-11-21 14:39] VITALS: PULSE 52; RESP 18; O2SAT 98
[2024-11-21 15:51] VITALS: BP 111/51; PULSE 56; RESP 16; O2SAT 99
--- NOTE | 2024-11-21 15:58 | ED.VIS.CHEST ---
HPI History of Present Illness Chief Complaint: Chest Pain Informant: patient Narrative Narrative: Patient is a 29-year-old female with history of IV drug use, bipolar disorder and recent hospitalization for Takotsubo cardiomyopathy. She is presenting today with recurrent chest pain. States he woke up with chest pain the center of her chest. It is constant sometimes radiates up to her right shoulder. She sometimes was short of breath with the pain but denies any pleuritic pain with it. States it feels like when she had the Takotsubo but not as severe. At the [facility] urgent care and EKG which showed T wave inversions and they called cardiology and sent her to the emergency room. I spoke with Dr. Edward who was relayed this message from his nurse practitioner. He states that these EKG changes are likely development/sequelae of her Takotsubo and does not think she needs further cardiac evaluation/workup and this is just the progression of her disease. Patient denies any swelling of her legs. Denies any of DVT or PE. Denies any GI or symptoms. [facility] Medical History Ovarian cyst Nausea & vomiting Wears contact lenses Marijuana use Easy bruising Migraine headache Syncope Seizures History of ulceration Gastric reflux Smoker Hepatitis C test positive H/O emotional problems Alcohol abuse Depression affecting Positive urine drug screen Anemia Herpes Tobacco abuse complicated by subutex maintenance, antepartum History of drug abuse Home Medications ?Medication ?Instructions ?Recorded ?Last Taken ?Type lansoprazole 30 mg capsule,delayed 30 mg PO BID #60 caps 10/23/24 Unknown Rx release acetaminophen 500 mg tablet 1,000 mg (2 x 500 mg) PO Q8 PRN 11/11/24 Unknown Rx Pain #0 tabs carvedilol 3.125 mg tablet 3.125 mg PO BID #180 tabs 11/14/24 Unknown Rx losartan 25 mg tablet 25 mg PO DAILY #90 tabs 11/14/24 Unknown Rx famotidine 40 mg tablet 40 mg PO QHS #90 tabs 11/19/24 Unknown Rx ondansetron 8 mg disintegrating 8 mg PO Q12H PRN nausea and 11/19/24 Unknown Rx tablet vomiting #30 tabs Allergy/AdvReac Type Severity Reaction Status Date / Time clindamycin Allergy Hives Verified 11/21/24 13:42 diphenhydramine HCl (From Allergy Hives Verified 11/21/24 13:42 Benadryl) Penicillins Allergy Hives Verified 11/21/24 13:42 Family History Other Alcoholism Anxiety Arthritis Cancer Cervical cancer Depression Diabetes Endometriosis Mental disorder Ovarian cancer Psychiatric care Seizures Thyroid disorder Surgical History History of esophagogastroduodenoscopy (EGD) History of cholecystectomy History of Social History household members: family housing: house number of children: 2 Smoking Status: Current every day smoker tobacco type: cigarettes alcohol intake: former substance use type: former substance user Date of last use: 05/2020 what type of physical activity do you participate in: none do you feel safe at home: Yes ROS ROS ED Constitutional Constitutional ED: Denies chills or fever(s) Cardiovascular Cardiovascular: Reports as per HPI and chest pain; Denies palpitations Respiratory/Chest Respiratory/Chest: Denies cough or dyspnea Gastrointestinal Gastrointestinal: Denies nausea or vomiting Musculoskeletal Musculoskeletal: Denies arthralgias or myalgias Psychiatric Psychiatric: Reports anxiety Hematologic/Lymphatic Hematologic/Lymphatic: Denies easy bleeding or easy bruising EXAM Physical Exam Const Vital Signs: 11/21/24 13:40 11/21/24 14:19 11/21/24 14:20 Temperature 98.2 F Temperature Source Oral Pulse Rate 64 Respiratory Rate 18 Respiratory Effort Normal Non-Labored Blood Pressure 118/61 Blood Pressure Mean 80 Pulse Ox 100 Oxygen Delivery Method Room Air Room Air 11/21/24 14:39 11/21/24 15:51 Temperature Temperature Source Pulse Rate 52 L 56 L Respiratory Rate 18 16 Respiratory Effort Blood Pressure 111/51 L Blood Pressure Mean 71 Pulse Ox 98 99 Oxygen Delivery Method Room Air Room Air Positive well nourished and well developed General Appearance ED: well developed and NAD HEENT Reports moist mucous membranes Neck supple and no JVD Chest Wall inspection of chest normal Resp normal respiratory effort and clear to auscultation bilaterally Cardio regular rate and regular rhythm Peripheral Pulses: pulses 2+ throughout GI normal to inspection, nondistended, normoactive bowel sounds and soft to palpation Extremity normal to inspection Neuro oriented x3 Sensorium / Orientation: awake and alert Psych Mood & Affect: anxious Skin no rashes or lesions noted and no wounds Heart Score History: Slightly/Non-Suspicious ECG: Nonspecific Repolarization Age: </= 45 years Risk Factors: No Risk Factors Troponin: >/=3 x Normal Limit Score: 3 MDM MDM MDM Narrative Medical decision making narrative: Patient is evaluated for recurrent chest pain today. Was admitted to the hospital for Takotsubo cardiomyopathy 11 days ago. She had recurrent chest pain today and had an EKG which showed T wave inversions and she was told to come to the emergency room. I spoke with cardiology who feels that these T wave inversions are the progression of her Takotsubo and he does not think there is any acute process going on. From a cardiac standpoint he does not think she needs to come into the hospital. Patient is PE RC negative and low risk per Wells criteria. When she had hospitalization she is not been immobilized for the past 3 days. I do not think she needs a D-dimer/PE study. Her high since he troponin is downtrending is now 79. EKG does not show any ACS but does have a T wave inversions in the inferior as well as V3 through V6. This is not new compared to her prior EKG. Clinically she does not have any findings consistent with decompensated heart failure. She is having crackles or peripheral edema/JVD. Patient feels better on repeat evaluation after aspirin. Will discharge patient home have her follow-up outpatient with cardiology. Given return precautions. Lab Data Attestation: I reviewed the patient's lab results. Labs: Laboratory Results - last 24 hr 11/21/24 11/21/24 14:19 16:00 WBC 8.5 RBC 4.22 Hgb 13.2 Hct 38.0 MCV 90.0 MCH 31.3 MCHC 34.7 RDW Std Deviation 42.5 RDW Coeff of Donnell 13.0 Plt Count 256 MPV 8.9 Immature Gran % (Auto) 0.200 Neut % (Auto) 64.0 Lymph % (Auto) 28.7 [place] % (Auto) 4.9 Eos % (Auto) 1.5 Baso % (Auto) 0.7 Absolute Neuts (auto) 5.5 Absolute Lymphs (auto) 2.45 Nucleated RBC % 0 Sodium Cancelled 139 Potassium Cancelled 4.5 Chloride Cancelled 103 Carbon Dioxide Cancelled 24.4 Anion Gap Cancelled 11 BUN Cancelled 14 Creatinine Cancelled 0.76 Estim Creat Clear Calc Cancelled 86.18 Est GFR (MDRD) Non-Af Cancelled 109 BUN/Creatinine Ratio Cancelled 18.0 Glucose Cancelled 80 Calcium Cancelled 9.7 Troponin T High Sens Cancelled 79 H* D Radiography Diagnostic Testing: Clinical Impression(s) from Imaging Studies Chest X-Ray 11/21/24 14:15 IMPRESSION: No acute cardiopulmonary process. Reading Location: [facility] Rhythm Strip Rhythm Strip: Sinus Rhythm Rate: 60 Ectopy: None EKG Initial EKG: Attestation: I personally reviewed and interpreted this EKG as follows: Interpretation: Sinus Rhythm Comments: Normal sinus rhythm at a rate of 60 bpm Short MO interval at 108 ms Right axis deviation T wave inversions in inferior leads as well as V3 through V6 with no reciprocal changes No significant change compared to prior EKG on 11/11/2024 Management Discussion w/another healthcare provider: Core Filer (Cardiology-Dr. Edward) Discharge Plan Triage Chief Complaint: Chest Pain ED Provider: Amanda Nieves Dx/Rx/DC Orders Clinical Impression: Chest pain, Takotsubo cardiomyopathy, Abnormal ECG Instructions: ED Chest Pain, Uncertain Cause Prescriptions: No Action carvedilol 3.125 mg tablet 3.125 mg PO BID Qty: 180 3RF losartan 25 mg tablet 25 mg PO DAILY Qty: 90 3RF acetaminophen 500 mg Tablet 1,000 mg PO Q8 PRN (Reason: Pain) Qty: 0 0RF lansoprazole 30 mg capsule,delayed release(DR/EC) 30 mg PO BID Qty: 60 1RF famotidine 40 mg tablet 40 mg PO QHS Qty: 90 2RF ondansetron 8 mg tablet,disintegrating 8 mg PO Q12H PRN (Reason: nausea and vomiting) Qty: 30 0RF Primary Care Provider: Nando Murray Referrals: Nando Murray MD [Primary Care Provider] - Huey Edward MD [Med Staff - Active Staff] - Activity Restrictions/Additional Instructions: Your high sensitive troponin is actually trending downward. While still elevated significantly improved from where it was during her hospitalization. Your EKG does not actually show any acute changes. I spoke with cardiology and likely the EKG changes are just the progression we would see with your prior cardiomyopathy. Please continue to follow-up outpatient with your primary care doctor. You may take 81 mg aspirin if you choose however your cardiac catheterization did not show any coronary artery disease. Print Language: Czech Disposition Disposition: Home, Self Care
[2024-11-21 16:07] LABS: Hematocrit 38.0 % (37-47); Hemoglobin 13.2 g/dL (12.0-15.0); Immature Granulocytes Count 0.020 X10^3/uL (0.0-0.0); Mean Corp Hgb Conc 34.7 g/dL (32-36); Mean Corpuscular Volume 90.0 fL (81-99); Mean Platelet Vol. 8.9 fl (6.2-12.0); NRBC Flagged by Analyzer 0 % (0-5); Platelet Count 256 K/mm3 (150-450); RBC Distribution Width CV 13.0 % (11.6-14.6); RBC Distribution Width SD 42.5 fl (35.1-43.9); Red Blood Count 4.22 M/mm3 (4.2-5.4); White Blood Count 8.5 K/mm3 (4.4-11.0)
[2024-11-21 16:36] LABS: Anion Gap 11 (5-15); BUN 14 mg/dL (4-19); BUN/Creat Ratio 18.0 RATIO (10-20); Calcium,Total 9.7 mg/dL (7.6-11.0); Carbon Dioxide 24.4 mmol/L (21.0-32.0); Chloride 103 mmol/L (98-108); Estimated Creatinine Clearance 86.18 ml/min (50-250); Glucose 80 mg/dL (70-99); Potassium 4.5 mmol/L (3.3-5.1); Troponin T High Sensitivity 79 ng/L (<=14)
[2024-11-21 17:04] VITALS: BP 109/54; PULSE 55; RESP 16; TEMP 36.6; O2SAT 97
== END 2024-11-21 17:05 | disposition home or self-care (01) ==
PROVIDERS: Emergency Provider Emergency Medicine; PCP Family Medicine; Visit Provider Emergency Medicine
DX: I51.81 Takotsubo syndrome (principal); F31.9 Bipolar disorder, unspecified; R94.31 Abnormal electrocardiogram [ECG] [EKG]; F17.210 Nicotine dependence, cigarettes, uncomplicated; Z79.899 Other long term (current) drug therapy
CPT/HCPCS: 36415; 71045; 80048; 84484; 85025; 93005; 99283; A4216

== ENCOUNTER → 2025-02-13 | Outpatient (CLI) | payer MEDICAID, SELFPAY | END | disposition home or self-care (01) | LOC: CVS 12:55 | PROVIDERS: PCP Family Medicine; Referring Provider Physician Assistant Medical; Visit Provider Physician Assistant Medical | DX: I51.81 Takotsubo syndrome (principal) | CPT/HCPCS: 93308 ==